=== PATIENT | male | born 1950 | race Caucasian/White ===

== ENCOUNTER 2017-01-31 22:18 | Inpatient (IN) | payer MEDICARE, BC, OTHER ==
[~2017-01-31] VITALS: Ht 172.7 cm; Wt 112.2 kg
[2017-01-31] MEDS ORDERED: ASPI81TA85 PO (22:35)
[2017-01-31] MEDS ORDERED: GLIP5TAB8 PO (22:35)
[2017-01-31] MEDS ORDERED: ATEN25TA PO (22:35)
[2017-01-31] MEDS ORDERED: ATOR1TAB19 PO (22:35)
[2017-01-31 23:41] LABS: BASO % 0.4 % (0.0-1.0); EOS % 0.5 % (0.0-3.0); LARGE UNSTAINED CELL # 0.1 K/mm3 (0.0-0.4); LARGE UNSTAINED CELL % 2.1 % (0.0-4.0); LYMPH # 1.1 K/mm3 (1.5-4.5); LYMPH % 15.9 % (24.0-44.0); MEAN CORPUSCULAR HEMOGLOBIN 28.5 pg (27.0-33.0); MEAN CORPUSCULAR HGB CONC 31.8 g/dl (32.0-36.5); MEAN CORPUSCULAR VOLUME 89.6 fl (80.0-96.0); MONO # 0.4 K/mm3 (0.0-0.8); MONO % 6.1 % (0.0-5.0); NEUTROPHILS # 4.7 K/mm3 (1.8-7.7); NEUTROPHILS % 75.2 % (36.0-66.0); PLATELET COUNT, AUTOMATED 186 k/mm3 (150-450); RED CELL DISTRIBUTION WIDTH 15.5 % (11.5-14.5); WHITE BLOOD COUNT 6.3 K/mm3 (4.0-10.0)
[2017-01-31 23:49] LABS: INR 1.42
[2017-02-01] VITALS (29 sets, daily range): BP systolic 85–111; BP diastolic 48–60
[2017-02-01 00:11] LABS: CALCIUM LEVEL 7.6 MG/DL (8.8-10.2); CREATININE FOR GFR 4.16 MG/DL (0.70-1.30); GLOMERULAR FILTRATION RATE 15.2 (>49); POTASSIUM SERUM 4.8 MEQ/L (3.5-5.1)
[2017-02-01] MEDS ORDERED: ATOR1TAB21 PO (00:58)
[2017-02-01] MEDS ORDERED: SILV-4 TOP (00:58)
[2017-02-01] MEDS ORDERED: FENO160T10 PO (00:58)
[2017-02-01] MEDS ORDERED: DIPH25CA PO (00:58)
[2017-02-01] MEDS ORDERED: ASPI81TAEC PO (00:58)
[2017-02-01] MEDS ORDERED: VITA50003 PO (00:58)
[2017-02-01] MEDS ORDERED: GLIM1TAB PO (00:58)
[2017-02-01] MEDS ORDERED: BACT800T5 PO (00:58)
[2017-02-01] MEDS ORDERED: RENV2TAB PO (00:58)
[2017-02-01] MEDS ORDERED: RENATAB5 PO (00:58)
[2017-02-01] MEDS ORDERED: LUTE40CA2 PO (00:58)
[2017-02-01] MEDS ORDERED: CINA30TA PO (00:58)
[2017-02-01] MEDS ORDERED: CALCIUM GLUCONATE 1,000 MG in D5W MINI-BAG PLUS 100 ML IV ONE (02:30)
[2017-02-01] MEDS ORDERED: diphenhydrAMINE 25 MG CAP PO PRN (02:30)
[2017-02-01] MEDS ORDERED: SILVER SULFADIAZINE 1% CR 50 GM JAR TOP PRN (02:30)
[2017-02-01] MEDS ORDERED: GLUCOSE 4 GM CHEW TABLET PO PRN (02:30)
[2017-02-01] MEDS ORDERED: GLUCAGON FOR INJ 1 MG VIAL (J1610) SC PRN (02:30)
[2017-02-01] MEDS ORDERED: ACETAMINOPHEN TAB 650MG DOSE (2X325MG) PO PRN (02:45)
[2017-02-01] MEDS ORDERED: ONDANSETRON 4MG/2ML VIAL (J2405) IV PRN (02:45)
[2017-02-01 05:48] LABS: MEAN CORPUSCULAR HEMOGLOBIN 28.6 pg (27.0-33.0); MEAN CORPUSCULAR HGB CONC 32.4 g/dl (32.0-36.5); MEAN CORPUSCULAR VOLUME 88.3 fl (80.0-96.0); RED CELL DISTRIBUTION WIDTH 15.6 % (11.5-14.5)
[2017-02-01 05:59] LABS: MAGNESIUM LEVEL 2.3 MG/DL (1.8-2.4)
--- NOTE | 2017-02-01 06:34 | HPE ---
DATE OF ADMISSION: 02/01/2017 PRIMARY CARE PROVIDER/TRESTLE BUILDER: Dr. Mayorga. CHIEF COMPLAINT: Lightheadedness and dizziness. HISTORY OF PRESENT ILLNESS: This is a 67-year-old male patient with underlying medical history of coronary arterial disease with coronary artery bypass graft (CABG), diabetes type 2, end-stage renal disease on hemodialysis Sunday, Sunday, Sunday, recently been treated with Bactrim for lower extremity cellulitis. The patient for the past day or so has been reported weak and lightheaded, subsequently went to dialysis today. Following dialysis, the patient reported lightheadedness getting worse. The patient was subsequently brought to the emergency room, found to be anemia. Fecal occult was done in the emergency room and was positive melanotic stool. Upon further questioning, the patient stated that at baseline, he makes about 1-2 bowel movements a day, but for the past week has been making melanotic stool up to four episodes a day for the past week or so. The patient was found to be hypotensive in the emergency room. Packed red blood cells (PRBC) transfusion ordered. Orthostatic not done given patient was hypotensive and mildly tachycardic. The patient denies any chest pain, pressure, discomfort. Denies any shortness of breath. Denies any headache. The patient has never had an esophagogastroduodenoscopy (EGD) or any past history of bleeding. Denies alcohol or drinking. ALLERGIES: No known drug allergies. PAST MEDICAL HISTORY: 1. Coronary arterial disease. 2. End-stage renal disease. 3. Type 2 diabetes. 4. Being treated for cellulitis. 5. History of transient ischemic attack (TIA) with left-sided paresthesia which has resolved. PAST SURGICAL HISTORY: 1. Appendectomy. 2. Coronary artery bypass graft (CABG). 3. Arteriovenous (AV) fistula. SOCIAL HISTORY: The patient lives at home with his . Baseline ambulatory. Denies history of alcohol use or smoking or illicit drug use. FAMILY HISTORY: Denies family history of cancer. HOME MEDICATIONS: - aspirin 81 mg by mouth daily - atenolol 25 mg by mouth Sunday, , Sunday, Sunday in the morning - Lipitor 20 mg by mouth at bedtime - Sensipar 30 mg by mouth every evening with dinner - Benadryl 25 mg by mouth at bedtime as needed - vitamin D 50,000 units on Sunday - fenofibrate 160 mg by mouth at bedtime - glimepiride 1 mg by mouth daily - lutein 40 mg by mouth daily - Adela-Liza one tablet by mouth daily - Renvela 1600 mg by mouth with meal - Silvadene silver sulfadiazine topical 1% - Bactrim 800/160 mg by mouth twice a day REVIEW OF SYSTEMS: The patient reported lightheadedness. Denies any chest pain, pressure, discomfort. Denies any shortness of breath. Reported melena. Denies any sick contact. All other review of systems was negative. PHYSICAL EXAMINATION: VITAL SIGNS: Temperature 98.8, pulse 102, respiratory rate 16, blood pressure ranging from 74/46 to 84/50. Pulse oximetry 97% on room air. GENERAL: Patient alert and oriented times three in no acute distress. Fatigued. Obese. HEENT: Normocephalic, atraumatic. PULMONARY: Bilaterally clear to auscultation. CARDIAC: Mild tachycardia. Regular S1, S2. ABDOMEN: Obese soft, nontender. Positive bowel sounds. EXTREMITIES: Right lower extremity healing cellulitis around the wright area with erythema that is resolving and fading. No significant edema bilateral lower extremities. NEUROLOGIC: No focal deficits. LABORATORY DATA: WBC 6.3, hemoglobin and hematocrit 6 over 18.9, platelets 186. Chemistry: Sodium 139, potassium 4.8, chloride 94, bicarbonate 29, BUN 39, creatinine 4.16. INR 1.42. ASSESSMENT AND PLAN: This is a 67-year-old male patient with underlying medical history of end-stage renal disease on hemodialysis Sunday, Sunday, Sunday, type 2 diabetes, non insulin dependent, history of coronary arterial disease, transient ischemic attack (TIA), admitted for acute blood loss anemia. 1. Acute blood loss anemia with fecal occult positive and hypotension. Given end-stage renal disease, avoid aggressive fluid resuscitation. We will actually transfuse the patient three units of packed red blood cells (PRBC). We will consult gastroenterology. Nothing by mouth. Protonix twice a day. Holding aspirin. Holding blood pressure medications. Serial hemoglobin and hematocrit. Transfuse as needed. 2. End-stage renal disease. Will consult nephrology for continuation of dialysis. Monitor for fluid overload. Strict intake and output. 3. Type 2 diabetes. Holding oral medication. Insulin every six hours according to protocol. Followup fingersticks. Nothing by mouth. 4. History of coronary arterial disease. EKG, cardiac enzymes. Holding aspirin and beta blockers for now, given patient is hypotensive with active gastrointestinal (GI) bleed. Continue statin. 5. History of transient ischemic attack (TIA). Continue statin. Holding aspirin given patient is having acute blood loss anemia. 6. Deep venous thrombosis (DVT) prophylaxis. Sequential compression devices. 7. Recently diagnosed cellulitis. Continue Bactrim. DISPOSITION: Pending GI followup, clinical improvement.
[2017-02-01] MEDS: HumaLOG INSULIN (NovoLOG) PER UNIT SC SCH ×4 (06:55→18:00)
[2017-02-01] MEDS ORDERED: (RENVELA) SEVELAMER **CARBONate** 800 MG TAB PO SCH (08:00)
[2017-02-01] MEDS ORDERED: BACTRIM 160MG/800MG DS TAB PO SCH (09:00)
[2017-02-01] MEDS: PANTOPRAZOLE 40MG INJ (PROTONIX) (C9113) IV SCH ×2 (09:12→20:18)
[2017-02-01 10:51] LABS: CALCIUM LEVEL 7.9 MG/DL (8.8-10.2); CREATININE FOR GFR 4.93 MG/DL (0.70-1.30); GLOMERULAR FILTRATION RATE 12.5 (>49); POTASSIUM SERUM 4.3 MEQ/L (3.5-5.1)
[2017-02-01] MEDS ORDERED: VANCOMYCIN HCL 1,000 MG, VIAL MATE ADAPTER 1 EACH in D5W 250 ML IV SCH (11:45)
[2017-02-01] MEDS: PIPERACILLIN/TAZOBACTAM SOD 2.25 GM in D5W MINI-BAG PLUS 50 ML IV SCH ×2 (12:15→20:19)
[2017-02-01] MEDS ORDERED: VANCOMYCIN HCL 1,000 MG, VIAL MATE ADAPTER 1 EACH in D5W 250 ML IV ONE (13:00)
[2017-02-01] MEDS ORDERED: VASOPRESSIN INJ 20 UNITS/ML VIAL As Ordered ONE (13:27)
--- NOTE | 2017-02-01 14:05 | ROOR ---
Patient Name: Kristopher Tyson Procedure Date: 02/01/2017 1:42 PM Date of : 1950 Age: 67 Gender: Male Note Status: Finalized Procedure: Upper GI endoscopy Indications: Acute post hemorrhagic anemia, Melena Providers: Joaquin GREEN MD Referring MD: Irina Mayorga MD Requesting Provider: Medicines: Monitored Anesthesia Care Complications: No immediate complications. Procedure: Pre-Anesthesia Assessment: - The heart rate, respiratory rate, oxygen saturations, blood pressure, adequacy of pulmonary ventilation, and response to care were monitored throughout the procedure. The Endoscope was introduced through the mouth, and advanced to the second part of duodenum. The upper GI endoscopy was accomplished without difficulty. The patient tolerated the procedure well. Findings: The examined esophagus was normal. The entire examined stomach was normal. One partially obstructing non-bleeding cratered duodenal ulcer with pigmented material was found in the duodenal bulb. The lesion was 10 mm in largest dimension. There is no evidence of perforation. This was biopsied with a cold forceps for histology. Impression: - One 10-15 mm deeply cratered non-bleeding duodenal ulcer with pigmented material. Biopsied along margin. - Normal esophagus. - Normal stomach. Recommendation: - Use Protonix (pantoprazole) 40 mg IV BID today. - Use Protonix (pantoprazole) 40 mg PO BID indefinitely. - Clear liquid diet. - Observe patient's clinical course. - [facility] to [facility] for [facility] care. Joaquin Green MD Joaquin GREEN MD 02/01/2017 2:04:50 PM This report has been signed electronically. Number of Addenda: 0 Note Initiated On: 02/01/2017 1:42 PM Estimated Blood Loss: Estimated blood loss: none.
[2017-02-01] MEDS ORDERED: PROPOFOL 200 MG/20 ML VIAL As Ordered ONE (14:17)
[2017-02-01] MEDS ORDERED: LIDOCAINE 2% INJ 100 MG/5 ML SDV (FOR ANES.) As Ordered ONE (14:17)
[2017-02-01] MEDS: CHECK TO SEE IF PATIENT IS RECEIVING DIALYSIS TODAY AND REFER TO THE VANCOMYCIN ORDER XX SCH (16:00)
[2017-02-01] MEDS ORDERED: VASOPRESSIN INJ 20 UNITS/ML VIAL ONE (16:59)
--- NOTE | 2017-02-01 16:59 | ECGEPIP ---
Stationary ECG Study [facility] Test Date: 2017-02-01 Pat Name: KALYANI WHITMORE Department: Room: [place] [address] Gender: M Paper Plate Machine Tender: CAROLANN : 1950 Requested By: YOBANY LAMBERT Order Number: [id number] Reading MD: Luis E Blackwell Measurements Intervals [place] Rate: 92 P: 8 AK: 163 QRS: 7 QRSD: 89 T: 53 QT: 370 QTc: 460 Interpretive Statements Normal sinus rhythm Consider prior inferior wall myocardial infarction Nonspecific repolarization abnormalities Faster heart rate compared to prior tracing of 01/28/2017 Electronically Signed On 02-01-2017 16:58:42 EDT by Luis E Blackwell
[2017-02-01] MEDS: CINACALCET 30 MG TAB (SENSIPAR) PO SCH (18:07)
[2017-02-01] MEDS: DEXTROSE 50% 50 ML SYRINGE IV PRN ×2 (18:07→23:37)
--- NOTE | 2017-02-01 19:31 | CR ---
DATE OF CONSULTATION: 02/01/2017 REQUESTING PHYSICIAN: Dr. Ginger Segovia CONSULTING PHYSICIAN: Dr. Gonzalez REASON FOR CONSULTATION: Management of end-stage renal disease and hemodialysis in this patient who was admitted to the intensive care unit (ICU) with acute blood loss anemia and possible gastrointestinal (GI) bleed. CHIEF COMPLAINT: The patient presented to the emergency room overnight with lightheadedness and dizziness. HISTORY OF THE PRESENT ILLNESS: Mr. Kristopher Tyson is a 67-year-old male with a past medical history of end-stage renal disease, on hemodialysis every Sunday, Sunday, Sunday. He is well known to nephrology service from outpatient dialysis center. The patient has multiple other comorbidities as mentioned below. The patient was recently started on Bactrim as an outpatient from the nephrology clinic because of right leg cellulitis, feeling weak and tired. Initially, his symptoms improved but after that, the patient started feeling more weak and tired and lightheaded, and he was also having loose stools, which were melenic and foul smelling. The patient was having about 2-3 episodes a day. He finally presented to the emergency room yesterday where he was found to have melenic stools, positive fecal occult. His hemoglobin on admission was 6. The patient was admitted to the ICU with symptomatic blood loss anemia with possible GI bleed. On further evaluation, the patient was also found to have a foul-smelling right 3rd toe diabetic foot infection. Nephrology service was called for further help in the management of end-stage renal disease and hemodialysis and any need to do hemodialysis in this patient who is getting blood transfusion for symptomatic anemic. The patient has received two units of packed red blood cell transfusion so far. He is asymptomatic at this time. He was sitting in the ICU with no apparent distress. PAST MEDICAL HISTORY: End-stage renal disease, on hemodialysis. Diabetes mellitus type 2. Recently started on antibiotics for right leg cellulitis. History of transient ischemic attacks (TIAs). Coronary artery disease, status post coronary artery bypass graft (CABG). PAST SURGICAL HISTORY: Status post coronary artery bypass grafting. Status post appendectomy. History of right forearm arteriovenous (AV) fistula placement. ALLERGIES: No known drug allergies. FAMILY HISTORY: No significant family history of end-stage renal disease requiring hemodialysis. SOCIAL HISTORY: The patient denies any smoking, illicit drug abuse or alcohol abuse. He lives at home with his . REVIEW OF SYSTEMS: CONSTITUTIONAL: The patient reported feeling weak, tired and lightheaded on presentation. HEENT: The patient reports very decreased vision of the eyes. He was unable to see the wound in his right foot. He denies any blurry vision, double vision or ear discharge. CARDIOVASCULAR: He denies any chest pain or palpitations. RESPIRATORY: He denies any shortness of breath or cough. GASTROINTESTINAL: The patient reports melenic stools, about 2-3 times a day. GENITOURINARY: He denies any dysuria or hematuria. MUSCULOSKELETAL: The patient is being recently treated for right leg cellulitis. Otherwise he denies any muscle aches and pains. CENTRAL NERVOUS SYSTEM: He reports a history of TIAs in the past. PSYCHIATRIC: He denies any history of depression or anxiety. ENDOCRINE: The patient has a history of secondary hyperparathyroidism and diabetes mellitus type 2. All other review of systems is negative. PHYSICAL EXAMINATION: GENERAL: The patient is awake, alert, oriented times three, laying in bed, in no apparent distress at this time. VITAL SIGNS: Temperature is 98.9 degrees Fahrenheit. Blood pressure is 95/57, pulse is 76, respiratory rate of 16, saturating 95% on room air. INTAKE/OUTPUT: There is no urine output recorded. The patient is 1530 mL positive with all the blood products given to him so far along with the IV fluids. HEAD AND NECK EXAM: Extraocular muscles intact. Pupils equally round and reactive to light. Mucous membranes are moist. Positive pallor in conjunctivae. Neck is supple. There is no jugular venous distention (JVD). CARDIOVASCULAR: S1, S2, regular rate. No murmur, rub or gallop. RESPIRATORY: Chest is clear to auscultation bilaterally. Bilateral equal air entry. No rales or rhonchi. ABDOMEN: Soft. Positive bowel sounds. Nontender. No ascites. No organomegaly. EXTREMITIES: The patient has a right forearm AV fistula with positive thrill and bruit and the patient has a foul-smelling right 3rd toe infection. CENTRAL NERVOUS SYSTEM: No focal neurological deficit. Power is 5/5 in all extremities. PSYCHIATRIC: Normal mood and affect. LYMPH NODES: No cervical, axillary or inguinal lymphadenopathy. LAB REVIEW: CBC showed a WBC of 7, hemoglobin is 7.9. It was 6 on admission. Platelets are 207. BMP showed sodium 137, potassium 4.3, chloride 95, bicarbonate is 33, BUN 57, creatinine is 4.93, lactate is 1.6, calcium is 7.9. CURRENT INPATIENT MEDICATIONS: The patient's medications were all reviewed by me. He was given calcium gluconate 1 gram IV. He is on Zosyn 2.25 grams IV every 8 hours, started today. Vancomycin 1 gram IV given today. Tylenol as needed. Lipitor 20 mg nightly. Sensipar 30 mg daily. Benadryl as needed. Insulin sliding scale. Zofran as needed. Protonix 40 mg IV every 12 hours. Renvela is on hold because the patient is nothing by mouth for procedure and his Bactrim has been stopped because the patient has been started on broad-spectrum vancomycin and Zosyn. ASSESSMENT: A 67-year-old male with a past medical history of end-stage renal disease, on hemodialysis, history of coronary artery disease, diabetes mellitus type 2, admitted at this time because of symptomatic acute blood loss anemia, possible upper GI bleed, along with a right-sided diabetic foot infection. PLAN: 1. Acute blood loss symptomatic anemia. The patient has been given two units of packed red blood cell transfusion so far. Hemoglobin is improving. If needed, the patient can be given another unit of packed red blood cells. The patient is hemodynamically stable at this time. There is no urgent need to do hemodialysis at this time. He is clinically not overloaded, and he does not have any shortness of breath. 2. Possible upper GI bleed. The patient has positive fecal occult blood test. He is nothing by mouth. The patient is going to get endoscopy by GI today. 3. End-stage renal disease, on hemodialysis. The patient's regular dialysis days are Sunday, Sunday, Sunday. No need of hemodialysis at this time. The patient will be dialyzed according to his regular schedule tomorrow. 4. Right 3rd toe diabetic foot infection. The patient is going to get MRI of the right foot once acute events are over. I have empirically started the patient on vancomycin and Zosyn. He is going to be evaluated by lead manufacturing engineer as well. 5. Diabetes mellitus type 2. Continue to hold the oral medications at this time. Continue insulin sliding scale as per primary team. 6. History of coronary artery disease. Continue to hold aspirin at this time because of the GI bleed. Hold fenofibrate. 7. Secondary hyperparathyroidism of renal origin. Continue current dose of Sensipar 30 mg by mouth daily once the patient starts eating. 8. Right leg cellulitis. The patient was empirically started on Bactrim as an outpatient. Cellulitis is improving. He is currently on empiric broad-spectrum antibiotic. Bactrim has been held at this time. Thank you for involving us in the care of this patient. We shall be happy to follow the patient along with you tomorrow morning.
[2017-02-01] MEDS: ATORVASTATIN 20 MG TAB PO SCH (20:19)
--- NOTE | 2017-02-01 22:01 | CR ---
DATE OF CONSULTATION: 02/01/2017 REASON FOR CONSULTATION: Right foot toe ulceration and gangrene. HISTORY OF PRESENT ILLNESS: The patient is a 67-year-old male who was admitted on 02/01/2017 due to dizziness. He is a kidney and dialysis patient, receives dialysis Sunday, Sunday and Fridays. He has previously seen Dr. King for his foot care in the past but states he did not see him since last winter. He states he did have an upcoming appointment to receive diabetic shoes. The patient has poor feeling in his feet, was unaware that there was any wound or problem to his toe. PAST MEDICAL HISTORY: Significant for: 1. Coronary artery disease. 2. End-stage renal disease on dialysis. 3. Diabetes. 4. History of transient ischemic attack (TIA). PAST SURGICAL HISTORY: Significant for: 1. Appendectomy. 2. Coronary artery bypass grafts. 3. Arteriovenous (AV) fistula. SOCIAL HISTORY: The patient denies smoking or alcohol. HOME MEDICATIONS: Aspirin, atenolol, Lipitor, Sensipar, Benadryl, vitamin D, fenofibrate, glimepiride, lutein, Adela-Liza, Renvela, and recent Bactrim for the toe infection. The patient denies pain in feet. VITAL SIGNS: Current temperature is 98.9, maximum temperature (T-max) is 99.1, vitals stable. LABORATORY DATA: White blood cell count 7, hemoglobin is 7.4, did receive packed red blood cells, it was 6 on admission, ESR is 126. MICROBIOLOGY: Wound cultures are pending. LOWER EXTREMITY EXAMINATION: Pulses are palpable bilaterally. There is absence of protective sensation bilaterally. There are no wounds noted to the left foot. The right foot, there is an ulceration noted to the lateral fifth metatarsal, approximately 0.4 cm in diameter, granular base, no signs of infection. The right third toe is ischemic in appearance with wounds both medial and lateral to the toe with necrotic tissue and positive probe to bone. ASSESSMENT: This is a 67-year-old male with diabetes, peripheral neuropathy, and diabetic ulceration, stage IV. PLAN: Continue current antibiotics, await culture results, an MRI has been ordered to evaluate extensive osteomyelitis. We will plan on amputation of the third toe within the next few days once the patient is stable and to use MagSorb on the wounds presently until further notice.
[2017-02-02] VITALS (13 sets, daily range): BP systolic 81–124; BP diastolic 45–67
[2017-02-02] MEDS: PIPERACILLIN/TAZOBACTAM SOD 2.25 GM in D5W MINI-BAG PLUS 50 ML IV SCH ×3 (02:25→21:57)
[2017-02-02] MEDS: HumaLOG INSULIN (NovoLOG) PER UNIT SC SCH ×4 (06:00→23:45)
[2017-02-02] MEDS: DEXTROSE 50% 50 ML SYRINGE IV PRN (06:02)
[2017-02-02 06:43] LABS: ALBUMIN 2.1 GM/DL (3.2-5.2); CALCIUM LEVEL 7.8 MG/DL (8.8-10.2); CREATININE FOR GFR 6.4 MG/DL (0.70-1.30); GLOMERULAR FILTRATION RATE 9.3 (>49); MAGNESIUM LEVEL 2.3 MG/DL (1.8-2.4); PHOSPHORUS LEVEL 4.5 MG/DL (2.5-4.9); POTASSIUM SERUM 3.6 MEQ/L (3.5-5.1)
[2017-02-02 07:05] LABS: MEAN CORPUSCULAR HGB CONC 33.6 g/dl (32.0-36.5); MEAN CORPUSCULAR VOLUME 86.4 fl (80.0-96.0); RED CELL DISTRIBUTION WIDTH 15.7 % (11.5-14.5); WHITE BLOOD COUNT 7.2 K/mm3 (4.0-10.0)
[2017-02-02] MEDS: PANTOPRAZOLE 40MG INJ (PROTONIX) (C9113) IV SCH ×2 (09:55→21:57)
--- NOTE | 2017-02-02 10:01 | REP ---
MRI RIGHT FOOT: Study is limited due to extensive patient motion. Multiple sequences are obtained in the axial, coronal, and sagittal planes. There does appear to be abnormal signal involving the third proximal, middle, and distal phalanges with diffuse low signal on T1 and high signal on T2. Findings suggest osteomyelitis of those structures. No other definite abnormal marrow signal is seen in the visualized osseous structures of the right foot. There is diffuse ill-defined edema throughout the soft tissues of the right foot. In addition, there is moderate fluid and edema along the flexor tendons of the foot primarily centered in the region of the midfoot. There is likely underlying cellulitis, but extent of the cellulitis cannot be determined without IV contrast. IMPRESSION: Limited exam due to patient motion. There are findings compatible with osteomyelitis of the third proximal, middle, and distal phalanges. There are findings of associated cellulitis. Moderate edema and fluid is seen along the flexor tendons of the midfoot. Signed by Vamshi Ledesma MD 02/02/2017 05:17 P
--- NOTE | 2017-02-02 10:51 | IPN ---
DATE: 02/02/2017 SUBJECTIVE: Today, the patient tells me that he had one runny bowel movement early yesterday evening but since then, he has not had any further episodes overnight. He denies chest pain, shortness of breath, lightheadedness, or dizziness, even when standing. He denies any other issues or problems at this time. OBJECTIVE: VITAL SIGNS: Temperature 97.8, pulse 69, respiratory rate 15, blood pressure 98/57 which appears to be his chronic baseline, oxygen saturation 98% on room air. GENERAL: He is an obese, elderly, man sitting in a wheelchair. He does not appear to be in any acute distress. NEUROLOGIC: Cranial nerves II-XII are grossly intact. HEENT: He does not appear pale today. No elevation in central venous pressure (CVP). CARDIOVASCULAR: S1, S2. RESPIRATORY: Clear. ABDOMEN: Grossly obese. There is epigastric tenderness to palpation. EXTREMITIES: He has a right thigh/gluteal region of induration and erythema, a right third toe erythema with ulcer which is malodorous. LABORATORY STUDIES: WBC 7.2, hemoglobin 8.6, hematocrit 25.7, platelet count 181. Chemistry panel: Sodium 134, potassium 3.6, chloride 94, bicarbonate 31, BUN 67, creatinine 6.4, troponin was 0.13 at the time of admission, repeat was 0.48. Blood cultures are negative thus far. Wound culture is pending. The patient did have an MRI of his foot which revealed findings compatible with osteomyelitis in the third proximal middle and distal phalanges. The patient had endoscopy yesterday which revealed one 10-15 mm deeply cratered, non-bleeding duodenal ulcer with pigmented material biopsied along the margin. ASSESSMENT AND PLAN: This is a 67-year-old man with gastrointestinal (GI) bleed secondary to a duodenal ulcer. 1. GI bleed and acute blood loss anemia secondary to duodenal ulcer. Dr. Green's help has been appreciated. The patient is on IV Protonix twice a day. He has been tolerating a clear liquid diet. He has received a total of four units of packed red blood cells (PRBCs). Hemoglobin is above 8. For the time being, we will keep him in the medical intensive care unit and monitor him to ensure that hemoglobin and hematocrit remain stable for 24 hours with no further active bleeding. He is to remain on a proton pump inhibitor (PPI) indefinitely. He will followup his biopsy results with Dr. Green outpatient. 2. Osteomyelitis of the right third toe. I did speak with Dr. Moscoso of podiatry. The patient normally follows with Dr. King who is unavailable to see the patient in consultation at this time. Dr. Moscoso agrees that this will likely require amputation. We are tentatively scheduling this for Sunday, provided that the patient remains hemodynamically stable and his GI bleed continues to resolve nicely. The patient is on empiric vancomycin and Zosyn. We will followup his cultures and narrow as appropriate. 3. Right gluteal/right thigh abscess. There is an area of fluctuance concerning for a possible abscess. I have asked Dr. Dumont of general surgery to see the patient. 4. End-stage renal disease. Dr. Gonzalez's help has been greatly appreciated. The patient is on Sensipar. 5. Type 2 diabetes. The patient is on sliding scale insulin and hypoglycemic protocol. He is on a renal, consistent-carbohydrate diet. 6. Dyslipidemia. The patient is on Lipitor. 7. Hypertension. The patient is actually hypotensive. He reports to me that he is quite chronically hypotensive. He normally takes atenolol four days a week on non-dialysis days. At this time, he does not appear to be requiring this whatsoever and as such, it has been discontinued. The patient's aspirin has been on hold secondary to bleeding. DISPOSITION: The patient will remain in the medical intensive care unit for an additional 24 hours. Provided he remains stable, he could likely be downgraded in the near future.
[2017-02-02] MEDS ORDERED: LIDOCAINE W/EPINEPHRINE 1% 20ML VIAL As Ordered ONE (15:06)
[2017-02-02] MEDS ORDERED: LIDOCAINE W/EPINEPHRINE 1% 20ML VIAL SC ONE (15:10)
[2017-02-02] MEDS: CHECK TO SEE IF PATIENT IS RECEIVING DIALYSIS TODAY AND REFER TO THE VANCOMYCIN ORDER XX SCH (16:00)
--- NOTE | 2017-02-02 16:33 | IPN ---
PODIATRY PROGRESS NOTE: DATE: 02/02/2017 The patient seen and examined at bedside. Denies overnight complaints. Denies any pain in his toe. VITAL SIGNS: He has been afebrile over last 24 hours. LABS: Labs reviewed. Hemoglobin is 8.6, white blood cell count is 7.2. Cultured reviewed. No growth 24 hours. Blood cultures, wound cultures pending. MRI report reviewed. There is osteomyelitis present in the third toe in the distal, middle and proximal phalange. None is noted to the metatarsal head. LOWER EXTREMITY EXAMINATION: Necrotic tissue again noted to the third toe. No worsening or spreading of the erythema proximal to this. ASSESSMENT: 67-year-old diabetic male with end-stage renal disease, on dialysis with third toe osteomyelitis. PLAN: Will take to operating room on Sunday afternoon for third toe amputation. Consent was obtained. Discussed this with patient and his who are amenable. Discussed with Dr. Gonzalez who states he will be able to have his dialysis in the morning on that Sunday. The patient will be nothing by mouth (npo) that morning. Will follow.
[2017-02-02] MEDS: CINACALCET 30 MG TAB (SENSIPAR) PO SCH (18:35)
[2017-02-02] MEDS ORDERED: VANCOMYCIN HCL 1,000 MG, VIAL MATE ADAPTER 1 EACH in D5W 250 ML IV ONE (21:45)
[2017-02-02] MEDS: ATORVASTATIN 20 MG TAB PO SCH (21:57)
[2017-02-03] VITALS: BP 107/69
[2017-02-03] MEDS: PIPERACILLIN/TAZOBACTAM SOD 2.25 GM in D5W MINI-BAG PLUS 50 ML IV SCH ×3 (03:20→21:11)
[2017-02-03 04:00] VITALS: BP 98/56
[2017-02-03 04:51] LABS: MEAN CORPUSCULAR HEMOGLOBIN 29.3 pg (27.0-33.0); MEAN CORPUSCULAR VOLUME 88.9 fl (80.0-96.0); RED CELL DISTRIBUTION WIDTH 16.4 % (11.5-14.5); WHITE BLOOD COUNT 6.2 K/mm3 (4.0-10.0)
[2017-02-03 05:07] LABS: ALBUMIN 2.1 GM/DL (3.2-5.2); CALCIUM LEVEL 7.8 MG/DL (8.8-10.2); CREATININE FOR GFR 4.59 MG/DL (0.70-1.30); GLOMERULAR FILTRATION RATE 13.6 (>49); MAGNESIUM LEVEL 2.2 MG/DL (1.8-2.4); PHOSPHORUS LEVEL 3.6 MG/DL (2.5-4.9)
[2017-02-03] MEDS ORDERED: GLUCOSE 4 GM CHEW TABLET As Ordered ONE (05:28)
[2017-02-03] MEDS: HumaLOG INSULIN (NovoLOG) PER UNIT SC SCH ×6 (06:00→20:18)
--- NOTE | 2017-02-03 08:13 | IPN ---
DATE: 02/02/2017 SUBJECTIVE: Patient was seen and examined at the bedside in the morning in the intensive care unit (ICU) today. He was sitting on the sofa. Last 24 hour events were noted. Patient got EGD done. He was found to have a non-bleeding duodenal ulcer on the EGD. GI recommended continuing the twice a day Protonix. We appreciate GI recommendations. Patient has soft blood pressure but he is asymptomatic at this time. He reports that his blood pressure is usually in 80s to low 90s. REVIEW OF SYSTEMS: Patient denies any fever, chills, rigors, headache, nausea, vomiting, chest pain, shortness of breath, pain in abdomen, constipation or diarrhea. Patient does report that he has boils and abscesses in the right gluteal region with blood drainage. Rest of review of systems is negative. OBJECTIVE: Vital signs: Temperature is 98.5 degrees Fahrenheit, blood pressure is 124/67, pulse 81, respiratory rate of 18, saturating 98% on room air. Intake and output: Urine output recorded as 100 mL so far today. Weight on the bed scale is 110 kg. PHYSICAL EXAMINATION: General: Patient is awake, alert, oriented times three sitting on the sofa in no apparent distress. Head and neck exam: Extraocular muscles intact. Pupils equally round and reactive to light. Mucous membranes are moist. Neck is supple. There is no jugular venous distention (JVD). Cardiovascular: S1, S2. Regular rate. No murmur, rub or gallop. Respiratory: Chest is clear to auscultation bilaterally. Bilateral equal air entry. No rales or rhonchi. Abdomen: Soft, positive bowel sounds, nontender, no ascites, no organomegaly. Extremities: Patient has a right forearm AV fistula with positive three line bruit. Patient has an infection in the right third toe and he also has boils, one in the right thigh lateral aspect which is almost 6 cm in length. It is draining blood at this time and there is another small hematoma, boil in the right gluteal region. Patient reports that he usually goes to urgent care, gets them drained and packed with dressings. Central nervous system: No focal neurological deficit. Power is 5/5 in all extremities. Psych: Normal mood and affect. LAB REVIEW: CBC showed WBC of 7.2, hemoglobin is 8.6, platelets of 181. BMP showed sodium 134, potassium 3.6, chloride 94, bicarbonate 31, BUN 67, creatinine 6.4. Lactic acid is 1.3, calcium 7.8. Albumin 2.1. Troponin 0.78. Microbiology: Blood culture is negative so far. Wound culture is pending. Imaging: MRI of the foot was done this morning. It was compatible with osteomyelitis of the third proximal middle and distal phalanx with associated cellulitis. Current inpatient medications: Patient's medications are all reviewed by me. He is currently on: - IV Zosyn - IV vancomycin There is no other change in the medications today as compared to yesterday. ASSESSMENT: 67-year-old male with past medical history of end stage renal disease on hemodialysis, history of coronary artery disease, diabetes mellitus type 2, admitted this time because of symptomatic anemia secondary to upper GI bleed along with right sided diabetic foot infection. PLAN: 1. Acute upper gastrointestinal (GI) bleed. Patient got EGD done yesterday. There was non-bleeding duodenal ulcer. Continue Protonix at this time. Continue to monitor CBC. Transfuse packed red blood cells for hemoglobin drop below 8. I appreciate GI recommendations. 2. End stage renal disease on hemodialysis. Today is patient's regular dialysis day according to Sunday, Sunday, Sunday. He will be dialyzed according to his regimen today. 3. Right third toe diabetic foot infection and osteomyelitis. I discussed the case with Dr. Moscoso. He plans to do the amputation of the third toe on Sunday after his dialysis session. Continue vancomycin and Zosyn. Cultures are pending. 4. Diabetes mellitus type 2. Continue insulin sliding scale. Blood glucose levels are in acceptable limit. 5. Coronary artery disease and elevated troponin is most likely secondary to stress and acute GI bleed. Aspirin is on hold. Hold fenofibrate at this time. 6. Right thigh and right gluteal region abscesses. Patient reports that he has visited the urgent care center multiple times. They are usually incised, drained and packed with dressings. I would like the surgical service to look at this abscesses because he is draining a lot of blood from them. I discussed this with the hospitalist Dr. Segovia and he is going to call the surgical service to evaluate the patient's abscesses. The plan of care was discussed with the patient, his with the hospitalist Dr. Segovia and with podiatry, Dimas Moscoso. Total critical care time spent in the care of this patient in intensive care unit (ICU) was 30 minutes.
[2017-02-03 10:00] VITALS: BP_SYST 102; BP_SYST 103; BP_SYST 105; BP_SYST 107; BP_DIAS 56; BP_DIAS 61; BP_DIAS 62
--- NOTE | 2017-02-03 10:14 | ROOPDOC ---
[facility] Report Of Operation Report of Operation DATE OF PROCEDURE: 02/02/17 PREPROCEDURE DIAGNOSES: Hematoma versus abscess right gluteal area and right hip POSTPROCEDURE DIAGNOSES: Hematoma right gluteal area and right hip PROCEDURE: Incision and drainage of hematoma right gluteal area and right hip SURGEON: Kanu Dumont MD KITCHEN MANAGER: ANESTHESIA: Local anesthesia with 1% lidocaine with epinephrine ESTIMATED BLOOD LOSS: Approximately 10 mL. COMPLICATIONS: None REMARKS: . PROCEDURE NOTE: . Patient with a mildly tender area, discolored and slight fluctuance over the right gluteal area and right hip area that on pressure is draining some old blood. He is tender but there is no significant erythema or cellulitis. Patient remains at the bedside. Consent was obtained. He was placed on a prone position. The areas of concern was prepped with chlorhexidine and draped. I initially attempted aspiration with an 18-gauge needle but did not get much return. After infiltrating with local anesthesia at the center point of the fluctuance 3 separate incisions of about 1.5-2 cm were created with drainage of initially liquid old blood and with pressure around it with solidified hematoma with resolution of the fluctuance. Gauze dressings and placed to cover the incision sites. Patient tolerated procedure well. KANU DUMONT MD Feb 03, 2017 10:14
--- NOTE | 2017-02-03 12:27 | IPN ---
DATE OF EXAMINATION: 02/03/2017 SUBJECTIVE: Today, the patient tells me that he is feeling great. He has no complaints. He tells me that he is having normal bowel movements. He does not have any further dark tarry stools. There is no blood in his bowel movements. He denies chest pain, shortness of breath, lightheadedness, dizziness, nausea, vomiting, or diarrhea. OBJECTIVE: VITAL SIGNS: Temperature 97.6, pulse 86, respiratory rate 19, blood pressure (BP) 98/56, oxygen (O2) saturation 96% on room air. GENERAL: He is a very pleasant obese man sitting up on the edge of the bed. He is accompanied by his . The patient does not appear to be in any acute distress whatsoever. HEENT: Cranial nerves II-XII are grossly intact. He has moist mucous membranes. No elevation in central venous pressure (CVP). CARDIOVASCULAR EXAMINATION: S1, S2. RESPIRATORY EXAMINATION: Is completely clear. ABDOMEN: Is grossly obese. There is mild tenderness to palpation over the epigastric region. EXTREMITIES: No clubbing or cyanosis. He has two foam bandages over his right thigh in gluteal region. He has dressings of his right 3rd toe. LABORATORY STUDIES: WBC 6.2, hemoglobin 9.1 stable, hematocrit 27.7, platelet count 194. Chemistry panel: Sodium 136, potassium 5.0, chloride 100, bicarbonate 29, BUN 35, creatinine 4.5. MICROBIOLOGY: A wound culture is positive for Morganella morgani, two different species, as well as Staphylococcus aureus. All appear sensitive to Bactrim. MRI of the foot reveals findings compatible with osteomyelitis in the 3rd proximal middle and distal phalanges. ASSESSMENT AND PLAN: This is a 67-year-old man with gastrointestinal (GI) bleed secondary to a duodenal ulcer. 1. Gastrointestinal (GI) bleed and acute blood loss anemia secondary to duodenal ulcer. Dr. Green's help has been appreciated. He is on Protonix twice a day 40. His GI bleed appears to be stable and resolving. At this time, his hemoglobin remains stable. Continue to monitor with daily hemoglobins and hematocrits. He will have to followup his biopsy results with Dr. Green in the outpatient setting. 2. Osteomyelitis of the right 3rd toe. Dr. Moscoso is planning to take the patient to the operating room (OR) on Sunday for amputation. The patient is aware of this. He will nothing by mouth after midnight on Sunday. He will have dialysis prior to the procedure on Sunday. The patient is hemodynamically stable. He remains on empiric vancomycin and Zosyn. We will followup the cultures from his amputation and narrow antibiotics and Bactrim as appropriate. However, I suspect Bactrim will likely be sufficient. 3. Right gluteal/thigh abscess versus hematoma. Dr. Dumont's help is greatly appreciated. The patient is status post incision and drainage (I and D) with dressing coverage at the present time. He reported has these chronically and presents to urgent care for frequent drainages. I suspect he would be better served by regular followup with Dr. Dumont. 4. End-stage renal disease, on hemodialysis. Dr. Gonzalez's help is greatly appreciated. The patient is on Sensipar. His regular schedule is Sunday, Sunday, and Sunday. 5. Type 2 diabetes. The patient is on sliding scale and hypoglycemic protocol. He is on a [id number] diet. 6. Dyslipidemia. The patient is on Lipitor. 7. Hypertension. The patient is chronically hypotensive. He normally takes atenolol four days a week on nondialysis days. He does not appear to be requiring this at this time and, as such, it has been discontinued. The patient's aspirin is also currently on hold related to bleeding from duodenal ulcer. DISPOSITION: The patient is medically cleared for transfer to the medical-surgical floor.
[2017-02-03] MEDS: PANTOPRAZOLE 40MG INJ (PROTONIX) (C9113) IV SCH ×2 (13:56→21:09)
[2017-02-03 14:00] VITALS: BP 104/52
[2017-02-03] MEDS: CHECK TO SEE IF PATIENT IS RECEIVING DIALYSIS TODAY AND REFER TO THE VANCOMYCIN ORDER XX SCH (16:00)
--- NOTE | 2017-02-03 17:01 | IPN ---
DATE:02/03/2017 SUBJECTIVE: Mr. Tyson is seen this morning on his bedside in intensive care unit. He is feeling well and denies any dyspnea or chest pain. He underwent hemodialysis yesterday which he tolerated very well. He also had incision and drainage done of fluid collection on his right buttock. The patient denies any abdominal pain, black colored stools or rectal bleeding. His appetite is good and he denies any nausea or vomiting. PHYSICAL EXAMINATION: VITAL SIGNS: Temperature 97.9 degrees Fahrenheit, heart rate 78 per minute and respiratory rate 18 per minute. Blood pressure 102/56 mmHg and oxygen saturation 98% on room air. HEENT: Head is atraumatic. Ears, nose and throat are unremarkable. Neck is supple and without jugular venous distention (JVD) or thyroid enlargement. Pupils equal and reactive to light and sclerae are anicteric. CARDIAC/RESPIRATORY: Heart sounds are regular and lungs clear to auscultation bilaterally. ABDOMEN: Soft and nontender. Bowel sounds are normal and there is no palpable organomegaly. EXTREMITIES: Have no cyanosis or clubbing. Arteriovenous (AV) fistula is patent in his left arm. His right foot is covered in dressing. Cellulitis on the right leg has improved. LABORATORY DATA: Today's labs show WBC count 6.2, hemoglobin 9.1 and hematocrit 27.7. Sodium 136 and potassium 5.0. BUN 35 and creatinine 4.59. Calcium 7.8, phosphorus 3.6 and magnesium 2.2. Albumin is 2.1. PROBLEMS: 1. Gastrointestinal (GI) bleed with severe anemia. Anemia has improved following transfusion. The patient has received a total of four units of packed red blood cells (RBCs). At present his hematocrit has been stable and no intervention is indicated. 2. End-stage renal disease. The patient underwent hemodialysis yesterday and his volume status is well compensated. His potassium level is borderline but at this point does not need any intervention. 3. Hyponatremia. His sodium level was slightly low yesterday which improved after dialysis. No intervention is indicated. 4. Gangrenous toe on right foot with cellulitis. The patient remains on antibiotics including Zosyn and vancomycin. He is afebrile and white blood cell count is normal. The patient is scheduled for amputation of his toe on Sunday. 5. Diabetes. His diabetes has been very well controlled. We will continue to monitor closely. 6. Protein calorie malnutrition related to GI bleed and ongoing infections. We will add Nepro one can daily. The patient is eating well. DISPOSITION: The patient is being transferred to medical floor. At this point he is hemodynamically stable.
[2017-02-03] MEDS: CINACALCET 30 MG TAB (SENSIPAR) PO SCH (18:15)
[2017-02-03] MEDS: ATORVASTATIN 20 MG TAB PO SCH (21:09)
[2017-02-03 22:00] VITALS: BP 108/59
[2017-02-04] MEDS: PIPERACILLIN/TAZOBACTAM SOD 2.25 GM in D5W MINI-BAG PLUS 50 ML IV SCH ×3 (03:41→20:17)
[2017-02-04 06:00] VITALS: BP 103/56
[2017-02-04 06:01] LABS: MEAN CORPUSCULAR HEMOGLOBIN 29.8 pg (27.0-33.0); MEAN CORPUSCULAR VOLUME 93.2 fl (80.0-96.0); RED CELL DISTRIBUTION WIDTH 17.1 % (11.5-14.5)
[2017-02-04 06:30] LABS: CALCIUM LEVEL 7.4 MG/DL (8.8-10.2); CREATININE FOR GFR 6.58 MG/DL (0.70-1.30); MAGNESIUM LEVEL 2.1 MG/DL (1.8-2.4); POTASSIUM SERUM 4.3 MEQ/L (3.5-5.1)
[2017-02-04] MEDS: HumaLOG INSULIN (NovoLOG) PER UNIT SC SCH ×4 (07:30→21:00)
[2017-02-04] MEDS: PANTOPRAZOLE 40MG INJ (PROTONIX) (C9113) IV SCH ×2 (09:46→20:18)
[2017-02-04 14:00] VITALS: BP_SYST 120; BP_SYST 129; BP_SYST 132; BP_DIAS 68; BP_DIAS 72
--- NOTE | 2017-02-04 15:09 | IPN ---
DATE: 02/04/2017 SUBJECTIVE: The patient reports he is feeling great. He has no complaints whatsoever. OBJECTIVE: VITAL SIGNS: Temperature 97.5, pulse 73, respiratory rate 19, blood pressure 103/56, oxygen saturation 97% on room air. GENERAL: He is a very pleasant, obese, man sitting up in bed. He is accompanied by his . He is in no distress. HEENT: Cranial nerves II-XII are grossly intact. CARDIOVASCULAR EXAM: S1, S2, regular. RESPIRATORY EXAM: Clear. ABDOMINAL EXAM: Obese. No tenderness to palpation. EXTREMITIES: No clubbing, cyanosis or edema. Bandages are clean, dry and intact. LABORATORY STUDIES: WBC 6.0, hemoglobin 8.6, hematocrit 26.9, stable, platelet count 173. Chemistry panel: Sodium 135, potassium 4.3, chloride 101, bicarbonate 25, BUN 53, creatinine 6.5. No new imaging. ASSESSMENT AND PLAN: This is a 67-year-old man who has a gastrointestinal (GI) bleed secondary to duodenal ulcer. Problems: 1. Gastrointestinal bleed and acute blood loss anemia secondary to duodenal ulcer. Dr. Green's help is appreciated. He is continued on Protonix twice a day. Hemoglobin and hematocrit is stable. Continue to monitor him. He will have to followup with biopsy results outpatient with Dr. Green. 2. Equivocal troponin. The patient may have some coronary artery disease and should undergo outpatient stress testing with a referral to cardiology. 3. Osteomyelitis of the right 3rd toe. I spoke with Dr. Moscoso. The patient will go for dialysis on Sunday and then from there to the operating room for amputation. He remains on empiric vancomycin and Zosyn. We will followup the cultures from his amputation and narrow antibiotics as appropriate. I suspect Bactrim will likely be sufficient. 4. Right gluteal/thigh abscess versus hematoma. Dr. Dumont's help is greatly appreciated. Status post incision and drainage. He has these recurrently and usually presents to urgent care. I suspect he would do better with regular followup with Dr. Dumont in surgical clinic. 5. End-stage renal disease, on hemodialysis. Nephrology's help is greatly appreciated. The patient is on Sensipar. His regular schedule is Sunday, Sunday, Sunday. He is euvolemic. 6. Type 2 diabetes. He is on sliding scale and hypoglycemic protocol. He is on renal, consistent carbohydrate diet. 7. Dyslipidemia. He is on Lipitor. 8. Hypertension. Chronically hypotensive. He normally takes atenolol; however, he does not appear to be requiring this at this time.
[2017-02-04] MEDS: CHECK TO SEE IF PATIENT IS RECEIVING DIALYSIS TODAY AND REFER TO THE VANCOMYCIN ORDER XX SCH (15:41)
[2017-02-04] MEDS ORDERED: DARBEPOETIN 100 MCG/0.5 ML *DIALYSIS* SYRINGE (J0882) IV SCH (16:30)
[2017-02-04] MEDS: CINACALCET 30 MG TAB (SENSIPAR) PO SCH (17:48)
--- NOTE | 2017-02-04 18:56 | IPN ---
DATE: 02/04/2017 SUBJECTIVE: Mr. Tyson is seen this morning on his bedside. He is feeling well and denies any complaints. He has no nausea, vomiting, dyspnea, chest pain, fever or chills. He was initially admitted with severe anemia, gastrointestinal (GI) bleed, and infected toe on his right foot with cellulitis. He remains on antibiotics. GI bleed has been stable since transfusion. The patient did have hemodialysis on Sunday which he tolerated very well. He is scheduled for his toe surgery on Sunday. PHYSICAL EXAMINATION: VITAL SIGNS: Temperature 97.5 degrees Fahrenheit, heart rate 72 per minute and respiratory rate 18 per minute. Blood pressure 103/56 mmHg and oxygen saturation 97% on room air. HEAD/NECK: His head is atraumatic. Neck is supple and without any thyroid enlargement or abnormal cervical lymph nodes. His neck veins are distended about 7-8 cm above sternal angle. Oral mucosa is moist and healthy. Pupils equal and reactive to light and sclerae are anicteric. CARDIAC: Heart sounds are regular with systolic murmur grade 1/6. RESPIRATORY: Lungs sound clear to auscultation bilaterally. ABDOMEN: Soft and nontender and without a palpable organomegaly. Bowel sounds are normal. EXTREMITIES: No cyanosis or clubbing. Arteriovenous (AV) fistula in the right arm is patent. There is mild edema on his right foot and his third and fourth toes are wrapped in dressing. NEUROLOGIC: He is awake, alert and oriented times three. SKIN: Wound on his right buttock is covered with dressing. LABORATORY DATA: Today's labs show WBC count 6.0, hemoglobin 8.6 and hematocrit 26.9. Platelets 173. Sodium 135 and potassium 4.3. BUN 53 and creatinine 6.58. Calcium 7.4, phosphorus 5.0 and magnesium 2.1. PROBLEMS: 1. End-stage renal disease. The patient is regularly dialyzed on Sunday, Sunday and Sunday schedule. He was dialyzed on Sunday and we will schedule his next hemodialysis for tomorrow morning. 2. Acute blood loss anemia with gastrointestinal bleed. His anemia has been stable since he was initially transfused on January 31. He received four units of packed red blood cells (RBCs) at that time. Will continue to monitor his complete blood count (CBC) and give him Aranesp 200 mcg once a week during dialysis. 3. Cellulitis right leg and infected toe on right foot. The patient remains on vancomycin and Zosyn. He will be given vancomycin 1 gram after dialysis and the Zosyn dose is adjusted for end-stage renal disease. 4. Hypertension. Blood pressure is well controlled and currently he is not on any antihypertensive medications. 5. Secondary hyperparathyroidism. The patient remains on Sensipar 30 mg daily and he is currently not on any phosphate binders. 6. Protein calorie malnutrition. This is related to acute infection and GI bleed. The patient is eating well now and we have added Nepro one can daily. As his infection improves, we anticipate improvement in his nutritional status.
[2017-02-04] MEDS: ATORVASTATIN 20 MG TAB PO SCH (20:18)
[2017-02-04 22:00] VITALS: BP 120/59
[2017-02-05] VITALS (7 sets, daily range): BP systolic 105–142; BP diastolic 55–78
[2017-02-05] MEDS: PIPERACILLIN/TAZOBACTAM SOD 2.25 GM in D5W MINI-BAG PLUS 50 ML IV SCH ×3 (05:23→20:27)
[2017-02-05 06:04] LABS: MEAN CORPUSCULAR HEMOGLOBIN 30.3 pg (27.0-33.0); MEAN CORPUSCULAR HGB CONC 33.1 g/dl (32.0-36.5); MEAN CORPUSCULAR VOLUME 91.7 fl (80.0-96.0); RED CELL DISTRIBUTION WIDTH 17.4 % (11.5-14.5); WHITE BLOOD COUNT 4.8 K/mm3 (4.0-10.0)
[2017-02-05 06:34] LABS: CALCIUM LEVEL 7.3 MG/DL (8.8-10.2); CREATININE FOR GFR 8.45 MG/DL (0.70-1.30); GLOMERULAR FILTRATION RATE 6.7 (>49); MAGNESIUM LEVEL 2.1 MG/DL (1.8-2.4); PHOSPHORUS LEVEL 6.1 MG/DL (2.5-4.9); POTASSIUM SERUM 4.4 MEQ/L (3.5-5.1)
[2017-02-05] MEDS: HumaLOG INSULIN (NovoLOG) PER UNIT SC SCH ×4 (06:41→20:11)
[2017-02-05] MEDS: PANTOPRAZOLE 40MG INJ (PROTONIX) (C9113) IV SCH ×2 (07:48→20:28)
--- NOTE | 2017-02-05 11:32 | IPN ---
DATE OF VISIT: 02/05/2017 Mr. Tyson is seen this morning on his bedside. He is currently undergoing hemodialysis. The patient is feeling well and denies any dyspnea, chest pain, nausea, vomiting, fever, or chills. He is scheduled for his toe amputation later today. He has been nothing by mouth. On physical examination, temperature 97.7 degrees Fahrenheit, heart rate 78 per minute, and respiratory rate 18 per minute. Blood pressure 105/59 mmHg and oxygen saturation 98% on room air. Neck is supple and without jugular venous distention (JVD) or thyroid enlargement. Head is atraumatic. Heart sounds are regular. Lungs clear to auscultation. Abdomen: Soft and nontender. Bowel sounds are normal. Extremities have no cyanosis or clubbing. Skin has no rash or ulcers. Neurologically, he is awake, alert, and oriented times three. Today's laboratories show WBC count 4.8, hemoglobin 8.3, and hematocrit 25.2. Platelets 167. Sodium 140, potassium 4.4. BUN 70 and creatinine 8.45. PROBLEMS: 1. End-stage renal disease. The patient is being dialyzed today, and he is tolerating his dialysis treatment very well. 2. Anemia. He did have gastrointestinal (GI) bleed on admission and required transfusions. We will give him 1 more unit of packed red blood cells today. 3. Gangrenous toe, right foot. The patient is scheduled for toe amputation later today. He remains on Zosyn and vancomycin for cellulitis and diabetic foot ulcer. 4. Hyperphosphatemia. Phosphorus level is slightly high again today. This is likely to improve with dialysis. I will go ahead and order phosphate binders with meals.
[2017-02-05] MEDS: (RENVELA) SEVELAMER **CARBONate** 800 MG TAB PO SCH ×2 (12:30→17:17)
[2017-02-05] MEDS ORDERED: BUPIVACAINE HCL 0.5% 10 ML VIAL As Ordered ONE (14:46)
[2017-02-05] MEDS ORDERED: LIDOCAINE 1% MDV 20ML VIAL As Ordered ONE (14:46)
[2017-02-05] MEDS: CHECK TO SEE IF PATIENT IS RECEIVING DIALYSIS TODAY AND REFER TO THE VANCOMYCIN ORDER XX SCH (16:00)
[2017-02-05] MEDS: CINACALCET 30 MG TAB (SENSIPAR) PO SCH (17:17)
[2017-02-05] MEDS ORDERED: fentaNYL 100 MCG/2 ML INJECTION (J3010) As Ordered ONE (18:05)
[2017-02-05] MEDS ORDERED: PROPOFOL 200 MG/20 ML VIAL As Ordered ONE (18:05)
[2017-02-05] MEDS ORDERED: MIDAZOLAM INJ 2 MG/2 ML VIAL (J2250) As Ordered ONE (18:05)
[2017-02-05] MEDS ORDERED: LIDOCAINE 2% INJ 100 MG/5 ML SDV (FOR ANES.) As Ordered ONE (18:34)
[2017-02-05] MEDS ORDERED: ONDANSETRON 4MG/2ML VIAL (J2405) IV PRN (19:30)
[2017-02-05] MEDS ORDERED: PERCOCET 5MG/325MG TAB PO PRN (19:30)
[2017-02-05] MEDS ORDERED: METOCLOPRAMIDE INJ 10MG/2ML VIAL (J2765) IV PRN (19:30)
[2017-02-05] MEDS ORDERED: LR 1,000 ML IV SCH (19:30)
[2017-02-05] MEDS ORDERED: fentaNYL 100 MCG/2 ML INJECTION (J3010) IV PRN (19:30)
--- NOTE | 2017-02-05 19:58 | IPN ---
DATE: 02/05/2017 SUBJECTIVE: The patient reports that he feels well. He is eager to have his surgery. He has no complaints. He is not in any pain. OBJECTIVE: VITAL SIGNS: Temperature 97.5, pulse 91, respiratory rate 18, blood pressure 142/78, oxygen saturation 99% on room air. GENERAL: He is an obese, pleasant, man sitting up in bed. He is in no distress. He is accompanied by his and his family members. HEENT: Cranial nerves II-XII are grossly intact. He has moist mucous membranes, no elevation of CVP. CARDIOVASCULAR EXAM: S1, S2, regular. RESPIRATORY EXAM: Clear. ABDOMINAL EXAM: Grossly obese. EXTREMITIES: His dressings are clean, dry and intact. LABORATORY STUDIES: WBC 4.8, hemoglobin 8.3, platelet count 167. Chemistry panel: Sodium 140, potassium 4.4, chloride 106, bicarbonate 23, BUN 70, creatinine 8.5. No new imaging. ASSESSMENT AND PLAN: This is a 67-year-old man who presented with a gastrointestinal (GI) bleed secondary to duodenal ulcer, now awaiting amputation of osteomyelitis of the right third toe. PROBLEM: 1. Gastrointestinal bleed and acute blood loss anemia secondary to duodenal ulcer. Dr. Green's help is appreciated. He is continued on Protonix twice a day. Hemoglobin and hematocrit are stable. Dr. Mayorga has decided to transfuse him one unit before procedure and hemodialysis today. We will continue to monitor. He will have to followup his duodenal biopsy results outpatient with Dr. Green. 2. Equivocal troponin. He might have some coronary artery disease. He should outpatient stress testing. 3. Osteomyelitis of the right 3rd toe. The patient is scheduled for the OR today. He currently on vancomycin and Zosyn. Recommend following up with culture data and narrowing antibiotic spectrum as appropriate. I suspect Bactrim would be sufficient. 4. Right gluteal/thigh abscess versus hematoma. Dr. Dumont's help is greatly appreciated. He is status post incision and drainage. He has these recurrently over years and he gets them taken care of at urgent care. I suspect he would do better with regular followup with Dr. Dumont in surgical clinic. 5. End-stage renal disease, on hemodialysis. His regular schedule is Sunday, Sunday, Sunday. He is on Sensipar. 6. Type 2 diabetes. He is on sliding scale and hypoglycemic protocol. He is on a renal consistent carbohydrate diet. 7. Dyslipidemia. He is on Lipitor. 8. Hypertension. He is actually chronically hypotensive and normally takes atenolol; however, he does not appear to be requiring this at all during his stay.
[2017-02-05] MEDS: ATORVASTATIN 20 MG TAB PO SCH (20:28)
[2017-02-06] VITALS (8 sets, daily range): BP systolic 116–159; BP diastolic 56–86
[2017-02-06] MEDS: PIPERACILLIN/TAZOBACTAM SOD 2.25 GM in D5W MINI-BAG PLUS 50 ML IV SCH ×2 (03:48→12:35)
[2017-02-06 05:55] LABS: MEAN CORPUSCULAR HEMOGLOBIN 30.1 pg (27.0-33.0); MEAN CORPUSCULAR HGB CONC 32.7 g/dl (32.0-36.5); MEAN CORPUSCULAR VOLUME 92.1 fl (80.0-96.0); RED CELL DISTRIBUTION WIDTH 17.4 % (11.5-14.5); WHITE BLOOD COUNT 5.8 K/mm3 (4.0-10.0)
[2017-02-06 06:33] LABS: ALBUMIN 2.1 GM/DL (3.2-5.2); CREATININE FOR GFR 5.35 MG/DL (0.70-1.30); GLOMERULAR FILTRATION RATE 11.4 (>49); MAGNESIUM LEVEL 2.1 MG/DL (1.8-2.4); PHOSPHORUS LEVEL 3.9 MG/DL (2.5-4.9); POTASSIUM SERUM 4.3 MEQ/L (3.5-5.1)
[2017-02-06] MEDS: PANTOPRAZOLE 40MG INJ (PROTONIX) (C9113) IV SCH ×2 (08:38→20:32)
[2017-02-06] MEDS: (RENVELA) SEVELAMER **CARBONate** 800 MG TAB PO SCH ×3 (08:38→17:34)
[2017-02-06] MEDS: HumaLOG INSULIN (NovoLOG) PER UNIT SC SCH ×4 (08:40→20:41)
--- NOTE | 2017-02-06 10:49 | RO ---
DATE OF PROCEDURE: 02/05/2017 PREPROCEDURE DIAGNOSES: Right 3rd toe osteomyelitis and infection. POSTPROCEDURE DIAGNOSES: Right 3rd toe osteomyelitis and infection. PROCEDURE: Right 3rd toe amputation. SURGEON: Dimas Moscoso DPM CONTENT ASSISTANT: None ANESTHESIA: Monitored anesthesia care with preoperative injection of 17 mL of 1:1 mixture of 1% lidocaine plain and 0.5% Marcaine plain. ESTIMATED BLOOD LOSS: Minimal. MATERIALS: 3-0 nylon and TLS drain. COMPLICATIONS: None. PATHOLOGY: Right 3rd toe and bone, aerobic and anaerobic for culture. Kristopher Tyson is a 67-year-old male who was admitted to the hospital with gastrointestinal (GI) bleed. During this time, it was noted that he had an ulceration to his 3rd toe with necrosis. An MRI was performed, which showed osteomyelitis to the distal middle and proximal phalange. Decision was made to bring him to the operating room. The patient's side and site were identified and marked in the preoperative holding area. Consent was reviewed and obtained. All risks, complications, and alternatives to the procedure were explained to the patient in detail. All questions were answered. DESCRIPTION OF PROCEDURE: The patient was brought to the operating room and placed on the operating table in supine position. Monitored anesthesia care was delivered by the anesthesia team. A preoperative injection of 17 mL of 1:1 mixture of 1% lidocaine plain and 0.5% Marcaine plain were injected to the right foot. The right foot was prepped and draped in normal sterile fashion. A tourniquet was applied to the right ankle but not inflated during the case. An elliptical incision was made surrounding the right 3rd toe, which was carried through with a #15 blade full thickness to bone. The toe was disarticulated at the metatarsophalangeal joint. The bone of the proximal phalanx was noted to be remarkably soft and fractured from the infection itself. The metatarsal head was inspected. This appeared free of infection and was firm to palpation with metal instrument. The wound was debrided of necrotic tissue and tendon. The site was irrigated with normal saline. No further necrosis was noted. The incision was closed over a TLS drain with 3-0 nylon. Sterile dressings were applied. The patient was brought to postanesthesia care unit (PACU) with vital signs stable and neurovascular status intact. He will be readmitted to the floor. The patient will be able to be discharged most likely on oral Bactrim once other medical issues are resolved. MTDD
--- NOTE | 2017-02-06 13:45 | IPN ---
DATE: 02/06/2017 Mr. Tyson is seen this morning on his bedside. He is feeling much better today and denies any dyspnea, chest pain, nausea, vomiting, fever or chills. He underwent amputation of his right fourth toe yesterday. The patient also had dialysis treatment yesterday prior to surgery. PHYSICAL EXAMINATION: Temperature 99.2 degrees Fahrenheit, heart rate 86 per minute and respiratory rate 18 per minute. Blood pressure 138/70 mmHg and oxygen saturation 99% on room air. His head is atraumatic. Ears, nose and throat are unremarkable. Neck is supple and without jugular venous distention (JVD) or thyroid enlargement. Heart sounds are regular and lungs clear to auscultation. Abdomen is soft and nontender and bowel sounds are normal. There is no palpable organomegaly. Extremities have no cyanosis or clubbing. Skin has no rash or ulcers. Right lower leg cellulitis has improved. Right foot is wrapped in dressing. His wound culture showed multiple organisms. Blood cultures have been negative so far. Today's labs show WBC count 5.8, hemoglobin 9.2 and hematocrit 28.3. Sodium 139 and potassium 4.3. BUN 37 and creatinine 5.35. PROBLEMS: 1. End-stage renal disease. The patient was dialyzed yesterday. His next dialysis will be scheduled for tomorrow. 2. Cellulitis and toe infection. The patient remains on IV antibiotics. His toe has been amputated due to gangrene. Cellulitis on the right leg has almost completely resolved. 3. Anemia. The patient had acute blood loss anemia due to GI bleed. He received one more unit of packed red blood cells yesterday. Anemia has now improved. We will continue to monitor and treat him with Aranesp once a week during dialysis. 4. Hypertension. Blood pressure is very well controlled at present on current medications. No changes are needed.
[2017-02-06] MEDS: CHECK TO SEE IF PATIENT IS RECEIVING DIALYSIS TODAY AND REFER TO THE VANCOMYCIN ORDER XX SCH (14:39)
--- NOTE | 2017-02-06 14:41 | IPN ---
DATE: 02/06/2017 The patient is seen and examined at the bedside. Denies overnight complaints. States no pain in his foot. He has been afebrile overnight. Maximum temperature (t-max) is 99.2. Laboratories reviewed. White blood count is 5.8, hemoglobin is 9.2. Operating room wound cultures are pending. Pathology is pending. Lower extremity exam: Dressing is clean, dry and intact. TLS drain is intact with about 5 mL of drainage. ASSESSMENT: 67-year-old male status post third toe amputation. PLAN: We will plan to change dressing tomorrow and most likely remove TLS drain at that time. It is okay to weight bear in the postoperative shoe. He will be able to be discharged on oral medications from a podiatry standpoint.
[2017-02-06] MEDS: CINACALCET 30 MG TAB (SENSIPAR) PO SCH (17:34)
--- NOTE | 2017-02-06 17:36 | IPNPDOC ---
Subjective Date Seen The patient was seen on 02/06/17. Subjective Chief Complaint/HPI The patient is a 67-year-old male admitted with a reason for visit of Gi Hemorrhage. Events since last encounter no acute events overnight. no further GI bleed, LE pain tolerable, denied f/c/cp / sob/n/v. tolerated PO General: Denies: Chills Constitutional: Denies: Chills, Fever ENT: Denies: Head Aches, Ear Pain Pulmonary: Denies: Dyspnea, Cough Cardiovascular: Denies: Chest Pain, Palpitations Gastrointestinal: Denies: Nausea, Vomiting, Abdominal Pain Genitourinary: Denies: Dysuria Objective Physical Examination General Exam: Positive: Alert, Cooperative, No Acute Distress Eye Exam: Positive: Conjunctiva & lids normal ENT Exam: Positive: Atraumatic, Mucous membr. moist/pink Neck Exam: Positive: Supple, JVD Chest Exam: Positive: Clear to auscultation, Normal air movement Heart Exam: Positive: Rate Normal, Normal S1, Normal S2, Murmurs Abdomen Exam: Positive: Normal bowel sounds, Soft, Tenderness Extremity Exam: Positive: Other (right le dressing c/d/i) Assessment /Plan Assessment a 67-year-old male patient with underlying medical history of end-stage renal disease on hemodialysis Sunday, Sunday, Sunday, type 2 diabetes, non insulin dependent, history of coronary arterial disease, transient ischemic attack (TIA), a/w gastrointestinal (GI) bleed secondary to duodenal ulcer and osteomyelitis of the right third toe. s/p amputation Problems (1) Osteomyelitis Problem Text: s/p amputation, was on vanco and zosyn, switched to Bactrim after d/w Dr Moscoso culture apprecaited (2) Elevated troponin Problem Text: 2/2 to demand ischemia, need outpatient stress with cardiology (3) Abscess, gluteal, right Problem Text: abscess versus hematoma. Dr. Dumont's help is greatly appreciated. He is status post incision and drainage. He has these recurrently over years and he gets them taken care of at urgent care. I suspect he would do better with regular followup with Dr. Dumont in surgical clinic. (4) ESRD (end stage renal disease) Problem Text: c/w Sensipar Renal consulted HD MWF (5) DMII (diabetes mellitus, type 2) Problem Text: consistent carb diet, insulin as per protocol f/u fs (6) HLD (hyperlipidemia) Problem Text: statin (7) HTN (hypertension) Problem Text: GI bleed, hold PO BP med restart as needed (8) Gastrointestinal hemorrhage Status: Acute Problem Text: s/p EGD, duodenal ulcer, PPI bid Dr Green consulted f/u HH Plan/VTE VTE Prophylaxis Ordered?: Yes (teds SCQ, no AC given bleed) Disposition Pending clinical improvement, PFS wound care VS, I&O, 24H, Fishbone Vital Signs/I&O Vital Signs Date Time Temp Pulse Resp B/P (MAP) Pulse Ox O2 Delivery O2 Flow Rate FiO2 02/06/17 14:00 99.0 85 18 134/80 (98) 99 Room Air 02/02/17 00:00 97 02/01/17 12:38 1.0 I&O- Last 24 Hours up to 6 AM 02/06/17 06:00 Intake Total 1125 ml Output Total 2290 ml Balance -1165 ml Laboratory Data 24H LABS Laboratory Tests 2 02/05/17 19:01: Bedside Glucose (Misc Panel) 62L 02/06/17 05:14: Blood Urea Nitrogen 37H, Creatinine 5.35H, Sodium Level 139, Potassium Level 4.3 , Chloride Level 105, Carbon Dioxide Level 25, Anion Gap 9, Glomerular Filtration Rate 11.4L, Calcium Level 8.0L, Phosphorus Level 3.9#, Magnesium Level 2.1, Albumin 2.1L 02/06/17 11:56: Bedside Glucose (Misc Panel) 148H 02/06/17 16:48: Bedside Glucose (Misc Panel) 169H CBC/BMP Laboratory Tests 02/06/17 05:14 Red Blood Count 3.07 L, Mean Corpuscular Volume 92.1, Mean Corpuscular Hemoglobin 30.1, Mean Corpuscular Hemoglobin Concent 32.7, Red Cell Distribution Width 17.4 H, Anion Gap 9 Microbiology Microbiology 01/31/17 Blood Culture - Final, Complete NO GROWTH AFTER 5 DAYS 02/04/17 Stool Occult Blood (NATHAN) - Final, Complete 02/05/17 Anaerobic Culture, Received Pending 02/05/17 Gram Stain - Final, Resulted 02/05/17 Abscess Culture, Resulted Pending 02/01/17 Wound Culture - Final, Complete Morganella Morganii Sp Sibonii Morganella Morganii Ssp Chase Escherichia Coli Staphylococcus Aureus YOBANY LAMBERT MD Feb 06, 2017 17:36
[2017-02-06] MEDS: ATORVASTATIN 20 MG TAB PO SCH (20:33)
[2017-02-06] MEDS ORDERED: BACTRIM 160MG/800MG DS TAB PO ONE (21:00)
[2017-02-07 06:00] VITALS: BP_SYST 136; BP_SYST 137; BP_SYST 155; BP_SYST 169; BP_DIAS 72; BP_DIAS 73; BP_DIAS 79; BP_DIAS 90
[2017-02-07 06:07] LABS: MEAN CORPUSCULAR HEMOGLOBIN 29.9 pg (27.0-33.0); MEAN CORPUSCULAR HGB CONC 32.3 g/dl (32.0-36.5); MEAN CORPUSCULAR VOLUME 92.6 fl (80.0-96.0); RED CELL DISTRIBUTION WIDTH 17.1 % (11.5-14.5); WHITE BLOOD COUNT 5.8 K/mm3 (4.0-10.0)
[2017-02-07] MEDS: PANTOPRAZOLE 40MG INJ (PROTONIX) (C9113) IV SCH ×2 (06:09→21:38)
[2017-02-07] MEDS: (RENVELA) SEVELAMER **CARBONate** 800 MG TAB PO SCH ×3 (06:10→18:22)
[2017-02-07 06:23] LABS: ALBUMIN 2.1 GM/DL (3.2-5.2); CALCIUM LEVEL 7.9 MG/DL (8.8-10.2); CREATININE FOR GFR 6.81 MG/DL (0.70-1.30); GLOMERULAR FILTRATION RATE 8.6 (>49); MAGNESIUM LEVEL 1.9 MG/DL (1.8-2.4); PHOSPHORUS LEVEL 4.5 MG/DL (2.5-4.9); POTASSIUM SERUM 4.3 MEQ/L (3.5-5.1)
[2017-02-07] MEDS: HumaLOG INSULIN (NovoLOG) PER UNIT SC SCH ×4 (07:48→21:00)
[2017-02-07] MEDS: CHECK TO SEE IF PATIENT IS RECEIVING DIALYSIS TODAY AND REFER TO THE VANCOMYCIN ORDER XX SCH (16:00)
--- NOTE | 2017-02-07 18:18 | IPNPDOC ---
Subjective Date Seen The patient was seen on 02/07/17. Subjective Chief Complaint/HPI The patient is a 67-year-old male admitted with a reason for visit of Gi Hemorrhage. Events since last encounter no acute events, denied f/c abd pain/n/v/diarrhea/cp. Comfortable Constitutional: Denies: Chills, Fever Eyes: Denies: Pain ENT: Denies: Head Aches, Ear Pain Pulmonary: Denies: Dyspnea, Cough Cardiovascular: Denies: Chest Pain, Palpitations Gastrointestinal: Denies: Nausea, Vomiting, Abdominal Pain, Diarrhea, Constipation Objective Physical Examination General Exam: Positive: Alert, Cooperative, No Acute Distress Eye Exam: Positive: Conjunctiva & lids normal ENT Exam: Positive: Atraumatic, Mucous membr. moist/pink Neck Exam: Positive: Supple, JVD Chest Exam: Positive: Clear to auscultation, Normal air movement Heart Exam: Positive: Rate Normal, Normal S1, Normal S2, Murmurs Abdomen Exam: Positive: Normal bowel sounds, Soft, Tenderness Extremity Exam: Positive: Other (right le dressing c/d/i) Assessment /Plan Problems (1) Osteomyelitis Problem Text: s/p amputation, was on vanco and zosyn, switched to Bactrim after d/w Dr Moscoso culture apprecaited (2) Elevated troponin Problem Text: 2/2 to demand ischemia, need outpatient stress with cardiology (3) Abscess, gluteal, right Problem Text: abscess versus hematoma. Dr. Dumont's help is greatly appreciated. He is status post incision and drainage. He has these recurrently over years and he gets them taken care of at urgent care. I suspect he would do better with regular followup with Dr. Dumont in surgical clinic. (4) ESRD (end stage renal disease) Problem Text: c/w Sensipar Renal consulted HD MWF (5) DMII (diabetes mellitus, type 2) Problem Text: consistent carb diet, insulin as per protocol f/u fs (6) HLD (hyperlipidemia) Problem Text: statin (7) HTN (hypertension) Problem Text: GI bleed, hold PO BP med restart as needed (8) Gastrointestinal hemorrhage Status: Acute Problem Text: s/p EGD, duodenal ulcer, PPI bid Dr Green consulted f/u HH stable Plan/VTE VTE Prophylaxis Ordered?: Yes (teds SCQ, no AC given bleed) Disposition teaching regarding wound care, PT. VS, I&O, 24H, Fishbone Vital Signs/I&O Vital Signs Date Time Temp Pulse Resp B/P (MAP) Pulse Ox O2 Delivery O2 Flow Rate FiO2 02/07/17 09:00 Room Air 02/07/17 06:00 82 137/73 (94) 83 155/79 (104) 92 169/90 (116) 02/07/17 06:00 98.1 17 97 02/02/17 00:00 97 02/01/17 12:38 1.0 I&O- Last 24 Hours up to 6 AM 02/07/17 06:00 Intake Total 1200 ml Output Total 426 ml Balance 774 ml Laboratory Data 24H LABS Laboratory Tests 2 02/06/17 20:25: Bedside Glucose (Misc Panel) 137H 02/07/17 05:24: Blood Urea Nitrogen 54H, Creatinine 6.81H, Sodium Level 142, Potassium Level 4.3 , Chloride Level 108H, Carbon Dioxide Level 24, Anion Gap 10, Glomerular Filtration Rate 8.6L, Calcium Level 7.9L, Phosphorus Level 4.5, Magnesium Level 1.9, Albumin 2.1L 02/07/17 17:35: Bedside Glucose (Misc Panel) 136H CBC/BMP Laboratory Tests 02/07/17 05:24 Red Blood Count 2.93 L, Mean Corpuscular Volume 92.6, Mean Corpuscular Hemoglobin 29.9, Mean Corpuscular Hemoglobin Concent 32.3, Red Cell Distribution Width 17.1 H, Anion Gap 10 Microbiology Microbiology 01/31/17 Blood Culture - Final, Complete NO GROWTH AFTER 5 DAYS 02/04/17 Stool Occult Blood (NATHAN) - Final, Complete 02/05/17 Anaerobic Culture - Final, Complete 02/05/17 Gram Stain - Final, Complete 02/05/17 Abscess Culture - Final, Complete 02/01/17 Wound Culture - Final, Complete Morganella Morganii Sp Sibonii Morganella Morganii Ssp Chase Escherichia Coli Staphylococcus Aureus YOBANY LAMBERT MD Feb 07, 2017 18:18
[2017-02-07] MEDS: CINACALCET 30 MG TAB (SENSIPAR) PO SCH (18:22)
--- NOTE | 2017-02-07 18:24 | IPN ---
DATE: 02/07/2017 Mr. Tyson is seen this morning on his bedside. He is resting comfortably in the bed. He denies any nausea, vomiting, dyspnea or chest pain. There are no fever or chills. PHYSICAL EXAMINATION: On physical examination, temperature 98.1 degrees Fahrenheit, heart rate 82 per minute and respiratory rate 16 per minute. Blood pressure 137/73 mmHg and oxygen saturation 97% on room air. Head is atraumatic. Ears, nose and throat are unremarkable. Neck is supple and jugular venous distention (JVD) is elevated at about 8 cm above the sternal angle. Pupils are equal and reactive to light and sclera is anicteric. Heart sounds are regular and lungs with slightly diminished breath sounds at the bases. Abdomen is soft, nontender and without any palpable organomegaly. Bowel sounds are normal. Extremities have no cyanosis or clubbing. Right foot is wrapped. Right buttock area wound is also covered with dressing. Neurologically, he is awake, alert and oriented times three. LABORATORY DATA: Today's laboratories show WBC count 5.8, hemoglobin 8.7 and hematocrit 27.1. Sodium 142 and potassium 4.3. BUN 54 and creatinine 6.81. PROBLEMS: 1. End-stage renal disease. The patient is due for dialysis today. We are going to dialyze him early this afternoon. I already wrote his dialysis orders for today. We will try to remove about 3-4 liters of fluid as tolerated. His electrolytes are within normal range. There is no bleeding at this point, so we can use heparin as needed. 2. Anemia. The patient had acute blood loss anemia due to gastrointestinal (GI) bleed. He has been stable since he was initially transfused. He has received Aranesp 300 mcg once a week during dialysis. We will monitor his complete blood count (CBC) on a daily basis. 3. Cellulitis and gangrenous toe, right foot. The patient had his toe amputated and cellulitis has improved. His antibiotic has been switched to oral Bactrim DS one tablet twice a day. Vancomycin and Zosyn have been stopped. 4. Diabetes. His diabetes remains reasonably well-controlled on the current regimen.
[2017-02-07] MEDS: BACTRIM 80MG/400MG TAB PO SCH (21:37)
[2017-02-07] MEDS: ATORVASTATIN 20 MG TAB PO SCH (21:37)
[2017-02-07 22:00] VITALS: BP 153/74
--- NOTE | 2017-02-08 05:36 | IPN ---
DATE: 02/07/2017 SUBJECTIVE: Patient is seen and examined at bedside. Denies overnight complaints. States no pain in foot. Denies nausea or vomiting, fever or chills. Vitals are reviewed. He has been afebrile. Overnight temperature maximum (T-max) is 99.1. LABORATORY DATA: Labs are reviewed. White blood cell count is 5.8, hemoglobin 8.7. Operating room (OR) cultures show no growth. LOWER EXTREMITY EXAMINATION: Minimal drainage with a TLS drain tube. Dressings are removed. Sutures are intact. No sign of dehiscence. No erythema to incision site. ASSESSMENT: A 67-year-old male status post third toe amputation. PLAN: Dressings changed. Daughter is present for dressing. Instructions are given. Dressing will be changed every other day. He is to ambulate in postoperative shoe. He will followup in my office next Sunday or . Suggest he be discharged on oral Bactrim for one week's worth of time.
[2017-02-08 05:37] LABS: MEAN CORPUSCULAR HEMOGLOBIN 29.1 pg (27.0-33.0); MEAN CORPUSCULAR HGB CONC 31.5 g/dl (32.0-36.5); MEAN CORPUSCULAR VOLUME 92.2 fl (80.0-96.0); RED CELL DISTRIBUTION WIDTH 17.9 % (11.5-14.5)
[2017-02-08 05:49] LABS: ALBUMIN 2.1 GM/DL (3.2-5.2); CALCIUM LEVEL 7.8 MG/DL (8.8-10.2); CREATININE FOR GFR 5.03 MG/DL (0.70-1.30); GLOMERULAR FILTRATION RATE 12.2 (>49); PHOSPHORUS LEVEL 3.7 MG/DL (2.5-4.9); POTASSIUM SERUM 4.2 MEQ/L (3.5-5.1)
[2017-02-08 06:00] VITALS: BP 133/70
[2017-02-08] MEDS: PANTOPRAZOLE 40MG INJ (PROTONIX) (C9113) IV SCH (09:22)
[2017-02-08] MEDS: (RENVELA) SEVELAMER **CARBONate** 800 MG TAB PO SCH ×3 (09:24→17:39)
[2017-02-08] MEDS: HumaLOG INSULIN (NovoLOG) PER UNIT SC SCH ×4 (09:24→21:00)
[2017-02-08 14:00] VITALS: BP 141/76
[2017-02-08] MEDS: CHECK TO SEE IF PATIENT IS RECEIVING DIALYSIS TODAY AND REFER TO THE VANCOMYCIN ORDER XX SCH (16:00)
[2017-02-08] MEDS: CINACALCET 30 MG TAB (SENSIPAR) PO SCH (17:39)
--- NOTE | 2017-02-08 18:13 | IPNPDOC ---
Subjective Date Seen The patient was seen on 02/08/17. Subjective Chief Complaint/HPI The patient is a 67-year-old male admitted with a reason for visit of Gi Hemorrhage. Events since last encounter no acute events overnight, comfortable tolerated oral, Denied cp/sob/abd pain/n/ v/f/c Constitutional: Denies: Chills, Fever ENT: Denies: Head Aches Pulmonary: Denies: Dyspnea, Cough Cardiovascular: Denies: Chest Pain, Palpitations Gastrointestinal: Denies: Nausea, Vomiting, Abdominal Pain, Diarrhea, Constipation Objective Physical Examination General Exam: Positive: Alert, Cooperative, No Acute Distress Eye Exam: Positive: Conjunctiva & lids normal ENT Exam: Positive: Atraumatic, Mucous membr. moist/pink Neck Exam: Positive: Supple, JVD Chest Exam: Positive: Clear to auscultation, Normal air movement Heart Exam: Positive: Rate Normal, Normal S1, Normal S2, Murmurs Abdomen Exam: Positive: Normal bowel sounds, Soft, Tenderness Extremity Exam: Positive: Other (right le dressing c/d/i) Assessment /Plan Assessment 67-year-old male patient with underlying medical history of end-stage renal disease on hemodialysis Sunday, Sunday, Sunday, type 2 diabetes, non insulin dependent, history of coronary arterial disease, transient ischemic attack (TIA), a/w gastrointestinal (GI) bleed secondary to duodenal ulcer and osteomyelitis of the right third toe. s/p amputation Problems (1) Osteomyelitis Problem Text: s/p amputation, was on vanco and zosyn, switched to Bactrim after d/w Dr Moscoso culture apprecaited wound care teaching (2) Elevated troponin Problem Text: 2/2 to demand ischemia, need outpatient stress with cardiology (3) Abscess, gluteal, right Problem Text: abscess versus hematoma. Dr. Dumont's help is greatly appreciated. He is status post incision and drainage. He has these recurrently over years and he gets them taken care of at urgent care. I suspect he would do better with regular followup with Dr. Dumont in surgical clinic. (4) ESRD (end stage renal disease) Problem Text: c/w Sensipar Renal consulted HD MWF (5) DMII (diabetes mellitus, type 2) Problem Text: consistent carb diet, insulin as per protocol f/u fs (6) HLD (hyperlipidemia) Problem Text: statin (7) HTN (hypertension) Problem Text: GI bleed, hold PO BP med restart as needed (8) Gastrointestinal hemorrhage Status: Acute Problem Text: s/p EGD, duodenal ulcer, PPI bid Dr Green consulted f/u HH stable Plan/VTE VTE Prophylaxis Ordered?: Yes (teds SCQ, no AC given bleed) Disposition Likely DC Sat, Pending PT and wound car teaching VS, I&O, 24H, Fishbone Vital Signs/I&O Vital Signs Date Time Temp Pulse Resp B/P (MAP) Pulse Ox O2 Delivery O2 Flow Rate FiO2 02/08/17 14:00 98.8 96 18 141/76 (97) 96 Room Air 02/02/17 00:00 97 I&O- Last 24 Hours up to 6 AM 02/08/17 06:00 Intake Total 900 ml Output Total 4511 ml Balance -3611 ml Laboratory Data 24H LABS Laboratory Tests 2 02/07/17 20:00: Bedside Glucose (Misc Panel) 219H 02/08/17 04:48: Blood Urea Nitrogen 34H, Creatinine 5.03H, Sodium Level 139, Potassium Level 4.2 , Chloride Level 104, Carbon Dioxide Level 28, Anion Gap 7L, Glomerular Filtration Rate 12.2L, Calcium Level 7.8L, Phosphorus Level 3.7, Magnesium Level 2.0, Albumin 2.1L 02/08/17 11:29: Bedside Glucose (Misc Panel) 201H 02/08/17 16:25: Bedside Glucose (Misc Panel) 163H CBC/BMP Laboratory Tests 02/08/17 04:48 Red Blood Count 3.04 L, Mean Corpuscular Volume 92.2, Mean Corpuscular Hemoglobin 29.1, Mean Corpuscular Hemoglobin Concent 31.5 L, Red Cell Distribution Width 17.9 H, Anion Gap 7 L Microbiology Microbiology 01/31/17 Blood Culture - Final, Complete NO GROWTH AFTER 5 DAYS 02/04/17 Stool Occult Blood (NATHAN) - Final, Complete 02/05/17 Anaerobic Culture - Final, Complete 02/05/17 Gram Stain - Final, Complete 02/05/17 Abscess Culture - Final, Complete 02/01/17 Wound Culture - Final, Complete Morganella Morganii Sp Sibonii Morganella Morganii Ssp Chase Escherichia Coli Staphylococcus Aureus YOBANY LAMBERT MD Feb 08, 2017 18:13
--- NOTE | 2017-02-08 21:11 | IPN ---
DATE: 02/08/2017 Mr. Tyson is seen this morning on his bedside. He just finished eating breakfast and is sitting at the edge of bed. He is feeling well and reports that he slept well last night. He denies any nausea, vomiting, dyspnea, chest pain, fever or chills. PHYSICAL EXAMINATION: Temperature 98.3 degrees Fahrenheit, heart rate 85 per minute and respiratory rate 17 per minute. Blood pressure 133/70 mmHg and oxygen saturation 98% on room air. Head: Is atraumatic. Ears, nose and throat are unremarkable. Neck is supple and without jugular venous distention (JVD). Heart: Sounds are regular and lungs clear to auscultation bilaterally. Abdomen: Soft and nontender. Bowel sounds normal and there is no palpable organomegaly. Extremities: Have no cyanosis or clubbing. Right arm atrioventricular (AV) fistula is patent. His right foot is wrapped in dressing. Today's labs show WBC count 6.0, hemoglobin 8.8 and hematocrit 28.0. Sodium 139 and potassium 4.2. BUN 34 and creatinine 5.0. PROBLEM LIST: 1. End-stage renal disease. The patient was dialyzed yesterday and will be dialyzed again tomorrow, which is his regular schedule. Volume status is well-compensated and electrolytes are within normal range. 2. Anemia. He had GI bleed on admission and required multiple transfusions. At present his anemia is stable and he receives Aranesp during hemodialysis once a week. CBC will be checked again tomorrow morning. 3. Cellulitis right foot and gangrenous toe. The patient did have amputation of his toe and cellulitis has improved. At present, he is on oral Bactrim and is doing well. 4. GI bleed. The patient has been stable on Protonix 40 mg every 12 hours intravenously. I will change his Protonix to oral dose of 40 mg twice a day. 5. Hyperphosphatemia. This has corrected. The patient remains on Renvela 1600 mg three times a day with meals. 6. Diabetes. His blood sugars are well-controlled and he remains on insulin.
[2017-02-08] MEDS: PANTOPRAZOLE 40MG TAB (PROTONIX) PO SCH (21:33)
[2017-02-08] MEDS: ATORVASTATIN 20 MG TAB PO SCH (21:33)
[2017-02-08] MEDS: BACTRIM 80MG/400MG TAB PO SCH (21:33)
[2017-02-08 22:00] VITALS: BP 134/78
[2017-02-09 06:00] VITALS: BP 148/82
[2017-02-09] MEDS: PANTOPRAZOLE 40MG TAB (PROTONIX) PO SCH ×2 (06:55→20:37)
[2017-02-09] MEDS: (RENVELA) SEVELAMER **CARBONate** 800 MG TAB PO SCH ×3 (06:55→17:42)
[2017-02-09] MEDS: HumaLOG INSULIN (NovoLOG) PER UNIT SC SCH ×4 (06:56→20:37)
[2017-02-09 08:00] VITALS: BP_SYST 138; BP_SYST 140; BP_SYST 142; BP_DIAS 68; BP_DIAS 70
[2017-02-09 10:16] LABS: MEAN CORPUSCULAR HEMOGLOBIN 29.7 pg (27.0-33.0); MEAN CORPUSCULAR VOLUME 92.8 fl (80.0-96.0); RED CELL DISTRIBUTION WIDTH 17.9 % (11.5-14.5); WHITE BLOOD COUNT 4.8 K/mm3 (4.0-10.0)
[2017-02-09] MEDS ORDERED: HEPARIN 1,000 UNITS/ML 10ML VIAL (FOR RADIOLOGY& DIALYSIS ONLY) IV ONE (10:30)
[2017-02-09 10:35] LABS: ALBUMIN 2.2 GM/DL (3.2-5.2); CALCIUM LEVEL 7.4 MG/DL (8.8-10.2); CREATININE FOR GFR 6.47 MG/DL (0.70-1.30); GLOMERULAR FILTRATION RATE 9.1 (>49); PHOSPHORUS LEVEL 3.5 MG/DL (2.5-4.9); POTASSIUM SERUM 4.1 MEQ/L (3.5-5.1)
[2017-02-09 14:00] VITALS: BP 155/78
[2017-02-09] MEDS: SENNA 8.6 MG TAB (SENOKOT) PO SCH ×2 (14:08→20:37)
[2017-02-09] MEDS: CHECK TO SEE IF PATIENT IS RECEIVING DIALYSIS TODAY AND REFER TO THE VANCOMYCIN ORDER XX SCH (14:09)
--- NOTE | 2017-02-09 16:12 | IPNPDOC ---
Subjective Date Seen The patient was seen on 02/09/17. Subjective Chief Complaint/HPI The patient is a 67-year-old male admitted with a reason for visit of Gi Hemorrhage. Events since last encounter No acute events overnight. Denied chest pain, sob, n/v/abd pain. able to ambulated. Constitutional: Denies: Chills, Fever Skin: Denies: Lesions Pulmonary: Denies: Dyspnea, Cough Cardiovascular: Denies: Chest Pain, Palpitations Gastrointestinal: Denies: Nausea, Vomiting, Abdominal Pain, Diarrhea, Constipation Objective Physical Examination General Exam: Positive: Alert, Cooperative, No Acute Distress Eye Exam: Positive: Conjunctiva & lids normal ENT Exam: Positive: Atraumatic, Mucous membr. moist/pink Neck Exam: Positive: Supple, JVD Chest Exam: Positive: Clear to auscultation, Normal air movement Heart Exam: Positive: Rate Normal, Normal S1, Normal S2, Murmurs Abdomen Exam: Positive: Normal bowel sounds, Soft, Tenderness Extremity Exam: Positive: Other (right le dressing c/d/i) Assessment /Plan Assessment 67-year-old male patient with underlying medical history of end-stage renal disease on hemodialysis Sunday, Sunday, Sunday, type 2 diabetes, non insulin dependent, history of coronary arterial disease, transient ischemic attack (TIA), a/w gastrointestinal (GI) bleed secondary to duodenal ulcer and osteomyelitis of the right third toe. s/p amputation Problems (1) Osteomyelitis Problem Text: s/p amputation, was on vanco and zosyn, switched to Bactrim after d/w Dr Moscoso culture apprecaited wound care teaching (2) Elevated troponin Problem Text: 2/2 to demand ischemia, need outpatient stress with cardiology (3) Abscess, gluteal, right Problem Text: abscess versus hematoma. Dr. Dumont's help is greatly appreciated. He is status post incision and drainage. He has these recurrently over years and he gets them taken care of at urgent care. I suspect he would do better with regular followup with Dr. Dumont in surgical clinic. (4) ESRD (end stage renal disease) Problem Text: c/w Sensipar Renal consulted HD MWF (5) DMII (diabetes mellitus, type 2) Problem Text: consistent carb diet, insulin as per protocol f/u fs (6) HLD (hyperlipidemia) Problem Text: statin (7) HTN (hypertension) Problem Text: initially bp med on hold, restated atenolol (8) Gastrointestinal hemorrhage Status: Acute Problem Text: s/p EGD, duodenal ulcer, PPI bid Dr Green consulted f/u HH stable Plan/VTE VTE Prophylaxis Ordered?: Yes (teds SCQ, no AC given bleed) Disposition Pending wound care teaching, and pt VS, I&O, 24H, Fishbone Vital Signs/I&O Vital Signs Date Time Temp Pulse Resp B/P (MAP) Pulse Ox O2 Delivery O2 Flow Rate FiO2 02/09/17 14:00 98.1 109 19 155/78 (103) 99 Room Air I&O- Last 24 Hours up to 6 AM 02/09/17 05:59 Intake Total 1200 ml Output Total 350 ml Balance 850 ml Laboratory Data 24H LABS Laboratory Tests 2 02/08/17 16:25: Bedside Glucose (Misc Panel) 163H 02/08/17 20:03: Bedside Glucose (Misc Panel) 187H 02/09/17 05:45: Bedside Glucose (Misc Panel) 103 02/09/17 09:15: Blood Urea Nitrogen 52#H, Creatinine 6.47H, Sodium Level 139, Potassium Level 4.1, Chloride Level 105, Carbon Dioxide Level 24, Anion Gap 10, Glomerular Filtration Rate 9.1L, Calcium Level 7.4L, Phosphorus Level 3.5, Albumin 2.2L 02/09/17 14:02: Bedside Glucose (Misc Panel) 145H CBC/BMP Laboratory Tests 02/09/17 09:15 Red Blood Count 2.92 L, Mean Corpuscular Volume 92.8, Mean Corpuscular Hemoglobin 29.7, Mean Corpuscular Hemoglobin Concent 32.0, Red Cell Distribution Width 17.9 H, Anion Gap 10 Microbiology Microbiology 01/31/17 Blood Culture - Final, Complete NO GROWTH AFTER 5 DAYS 02/04/17 Stool Occult Blood (NATHAN) - Final, Complete 02/05/17 Anaerobic Culture - Final, Complete 02/05/17 Gram Stain - Final, Complete 02/05/17 Abscess Culture - Final, Complete 02/01/17 Wound Culture - Final, Complete Morganella Morganii Sp Sibonii Morganella Morganii Ssp Chase Escherichia Coli Staphylococcus Aureus YOBANY LAMBERT MD Feb 09, 2017 16:12
[2017-02-09] MEDS: CINACALCET 30 MG TAB (SENSIPAR) PO SCH (17:41)
--- NOTE | 2017-02-09 17:56 | IPN ---
DATE: 02/09/2017 Mr. Tyson is seen this morning during hemodialysis. He is feeling well and denies any dyspnea, chest pain, nausea, vomiting, fever, or chills. He has been eating well. PHYSICAL EXAMINATION: Temperature 98.3 degrees Fahrenheit, heart rate 100 per minute, respiratory rate 18 per minute, blood pressure 138/68 mm of mercury, and oxygen saturation 100% on room air. Head: Is atraumatic. Ears, nose, and throat are unremarkable. Neck is supple and jugular venous distention (JVD) is only mildly elevated. Heart sounds are tachycardiac but regular. Lungs clear to auscultation. Abdomen soft, obese, and nontender. Bowel sounds are normal. Extremities have no cyanosis or clubbing. Arteriovenous (AV) fistula in right arm is working well. Neurologically, he is awake, alert, and oriented times three. His right foot is wrapped in dressing where he had toe amputation. Today's labs show WBC count 4.8, hemoglobin 8.7, hematocrit 27.1, platelets are 128. Sodium 139 and potassium 4.1, BUN 52, and creatinine 6.7. PROBLEMS: 1. End-stage renal disease. The patient is being dialyzed today. He is tolerating his dialysis treatment very well. We are removing about 3 liters of fluid. His electrolytes are all within normal range. 2. Anemia, stable, and the patient has been receiving Aranesp 300 mcg once a week. No other intervention is indicated at this point. 3. Cellulitis, right foot and leg, with gangrenous toe. The patient had his toe amputated, and cellulitis has improved. He remains on Bactrim one tablet daily. 4. Diabetes. His diabetes is reasonably well controlled on current system insulin regimen. 5. Hyperparathyroidism. The patient continues with Sensipar 30 mg daily and Renvela 1600 mg with each meal. DISPOSITION: From a renal standpoint, the patient can be discharged to home tomorrow, as it is already being planned. He will return for next hemodialysis on Sunday at his regular scheduled time.
[2017-02-09] MEDS: ATORVASTATIN 20 MG TAB PO SCH (20:36)
[2017-02-09] MEDS: BACTRIM 80MG/400MG TAB PO SCH (20:36)
[2017-02-09 22:00] VITALS: BP 136/62
[2017-02-10 06:00] VITALS: BP 145/76
[2017-02-10 06:13] LABS: MEAN CORPUSCULAR HEMOGLOBIN 29.7 pg (27.0-33.0); MEAN CORPUSCULAR HGB CONC 31.9 g/dl (32.0-36.5); MEAN CORPUSCULAR VOLUME 93.1 fl (80.0-96.0); RED CELL DISTRIBUTION WIDTH 18.1 % (11.5-14.5); WHITE BLOOD COUNT 4.8 K/mm3 (4.0-10.0)
[2017-02-10 06:23] LABS: ALBUMIN 2.2 GM/DL (3.2-5.2); CALCIUM LEVEL 7.9 MG/DL (8.8-10.2); CREATININE FOR GFR 4.84 MG/DL (0.70-1.30); GLOMERULAR FILTRATION RATE 12.8 (>49); PHOSPHORUS LEVEL 3.3 MG/DL (2.5-4.9); POTASSIUM SERUM 3.9 MEQ/L (3.5-5.1)
[2017-02-10] MEDS: (RENVELA) SEVELAMER **CARBONate** 800 MG TAB PO SCH ×3 (08:08→17:15)
[2017-02-10] MEDS: HumaLOG INSULIN (NovoLOG) PER UNIT SC SCH ×3 (08:08→17:15)
[2017-02-10 08:09] VITALS: BP 145/76
[2017-02-10] MEDS: SENNA 8.6 MG TAB (SENOKOT) PO SCH (08:09)
[2017-02-10] MEDS: PANTOPRAZOLE 40MG TAB (PROTONIX) PO SCH (08:09)
[2017-02-10] MEDS ORDERED: ATENOLOL 25 MG TAB PO SCH (09:00)
[2017-02-10] MEDS ORDERED: SENN1TAB4 PO (11:32)
[2017-02-10] MEDS ORDERED: PANT40TA2 PO (11:32)
[2017-02-10] MEDS ORDERED: SULF1TAB72 PO (11:32)
[2017-02-10 14:00] VITALS: BP 121/65
--- NOTE | 2017-02-10 15:15 | IPN ---
DATE: 02/10/2017 SUBJECTIVE: Patient was seen and examined at the bedside today morning. Patient was sitting in the bed. He is comfortable. He tolerated his hemodialysis procedure well yesterday. He is telling me that he is ready to go home today. REVIEW OF SYSTEMS: Patient denies any fevers, chills, rigors, headache, nausea, vomiting, chest pain, shortness of breath. Patient does report mild bleeding from the right thigh hematoma site. Rest of the review of systems is negative. OBJECTIVE: Vital signs: Temperature is 98.7 degrees Fahrenheit, blood pressure is 145/76, pulse is 101, respiratory rate of 17, saturating 97% on room air. Intake and output: Urine output is not recorded. Ultrafiltration with hemodialysis was 3 liters yesterday. Weight in the bed scale was 112.2 kg yesterday. PHYSICAL EXAMINATION: GENERAL: Patient is awake, alert, oriented times three, sitting in the bed. No apparent distress. HEAD AND NECK: Extraocular muscles intact. Pupils equally round and reactive to light. Neck is supple. There is no jugular venous distention (JVD). CARDIOVASCULAR: S1, S2, regular rate. No murmur, rub, or gallop. RESPIRATORY: Chest is clear to auscultation bilaterally. Bilateral equal air entry. No rales or rhonchi. ABDOMEN: Abdomen is soft. Positive bowel sounds. Nontender. No ascites. No organomegaly. EXTREMITIES: Patient has a right forearm arteriovenous (AV) fistula with positive thrill and bruit. He has a dressing on the right thigh hematoma site, and patient has a dressing on the right foot from the 3rd toe amputation site. CENTRAL NERVOUS SYSTEM: No focal neurological deficit. Power is 5/5 in all extremities. LABORATORY REVIEW: CBC showed a WBC of 4.8, hemoglobin 8.8, platelets are 100. BMP showed sodium 141, potassium 3.9, chloride 100, bicarbonate 27, BUN 36, creatinine is 4.8. CURRENT MEDICATIONS: Patient's current inpatient medications were all reviewed by me. He has been started on atenolol 25 mg on Sunday, Sunday, , and Sunday. There is no other change in the medications today. ASSESSMENT: A 67-year-old male with past medical history of end-stage renal disease, on hemodialysis, diabetes mellitus, type 2, admitted at this time because of symptomatic anemia secondary to gastrointestinal (GI) bleed and right toe diabetic foot infection. PLAN: 1. End-stage renal disease, on hemodialysis. Patient's regular dialysis days are Sunday, Sunday, Sunday. He was dialyzed yesterday according to his schedule. No urgent need of dialysis today. 2. Right 3rd toe diabetic foot infection. Patient got the amputation done by podiatry. He is currently getting dressings. Patient is currently on Bactrim for infection. 3. Acute blood loss anemia secondary to GI bleed. GI bleed has improved. Hemoglobin is stable at around 8.8. Continue current dose of Aranesp with hemodialysis. DISCHARGE PLANNING: It is okay to discharge the patient from a nephrology standpoint. Next regular dialysis will be on Sunday. Plan of care was discussed with the hospitalist, Dr. Mila Foster.
[2017-02-10] MEDS: CHECK TO SEE IF PATIENT IS RECEIVING DIALYSIS TODAY AND REFER TO THE VANCOMYCIN ORDER XX SCH (16:00)
[2017-02-10] MEDS: CINACALCET 30 MG TAB (SENSIPAR) PO SCH (17:15)
[2017-02-10] MEDS: BACTRIM 80MG/400MG TAB PO SCH (21:02)
--- NOTE | 2017-02-11 01:40 | DSES ---
DATE OF ADMISSION: 02/01/2017 DATE OF DISCHARGE: 02/10/2017 PRIMARY CARE PROVIDER/PESTICIDE APPLICATOR: Dr. Mayorga. INVENTORY ASSISTANT: Dr. Green. SENIOR APPLICATION SOFTWARE ENGINEER: Dr. King covered by Dr. Moscoso. FINAL DIAGNOSES: 1. Osteomyelitis. 2. Elevated troponin. 3. Right gluteal abscess. 4. End-stage renal disease. 5. Type 2 diabetes. 6. Dyslipidemia. 7. Hypertension. 8. Gastrointestinal (GI) bleed secondary to duodenal ulcer. HISTORY OF PRESENT ILLNESS: This is a 67-year-old male patient with underlying medical history of end-stage renal disease on hemodialysis Sunday, Sunday, Sunday, coronary arterial disease with coronary artery bypass graft (CABG), diabetes type 2, recently being treated for lower extremity cellulitis with Bactrim. Patient has, for the past several days, reported lightheadedness and weakness. Subsequently, went to dialysis. Following dialysis, patient reported worsening lightheadedness and was brought to the emergency room, found to be anemic. Fecal occult positive with melanotic stool. Patient, on questioning, stated that has been making 2-3 bowel movements a day for the past week or so with melanotic stool. Baseline making 1-2 bowel movements a day. Also found to be hypotensive. Transfused packed red blood cells (PRBC). Orthostatics not done. Denies any headache, chest pain, pressure or discomfort. HOSPITAL COURSE: Patient was admitted to the hospital, made nothing by mouth. PRBC was transfused. Hemoglobin and hematocrit was monitored. Dr. Green was consulted. Status post esophagogastroduodenoscopy (EGD) found to have duodenal ulcer which was clipped. Furthermore, patient was found to have a right foot necrotic lesion found to be osteomyelitis. Podiatry has been consulted. Status post amputation. Broad-spectrum antibiotics were given. Cultures were sent. Surgery, Dr. Dumont has also been consulted for buttocks abscess, which was drained. Dialysis was continued. Patient tolerated treatment. Tolerating oral, diet was advanced. Currently comfortable in no acute distress. Wound care teaching was done. Physical therapy was done. Antibiotics were switched to oral. Patient is comfortable, tolerating oral. Ready for discharge for further care as outpatient. PHYSICAL EXAMINATION: VITAL SIGNS: Temperature 98.7, pulse 101, respirations 17, blood pressure 145/76, pulse oximetry 97% on room air. GENERAL: Patient alert and oriented times three in no acute distress. Obese. PULMONARY: Bilaterally clear to auscultation. CARDIAC: Regular rate and rhythm. Normal S1, S2. ABDOMEN: Soft, nontender, nondistended. EXTREMITIES: No edema bilateral lower extremities with surgical wounds on the right lower extremity, clean, dry, intact. LABORATORY: WBC 4.8, hemoglobin and hematocrit 8.8/27.6, platelets 100. Chemistry: Sodium 141, potassium 3.9, chloride 104, bicarbonate 29, BUN 36, creatinine 4.84. DISCHARGE MEDICATIONS: - Protonix 40 mg by mouth daily - senna-S two tablets by mouth twice a day - Bactrim 400/80 mg combination by mouth daily for 10 more days - atenolol 25 mg by mouth four times a week - Lipitor 20 mg by mouth nightly - Sensipar 30 mg by mouth every evening - Benadryl 25 mg by mouth nightly as needed for sleep - vitamin D 50,000 units by mouth once a week - fenofibrate 160 mg by mouth nightly - glimepiride 1 mg by mouth daily - lutein 40 mg by mouth daily - Adela-Liza one tablet by mouth daily - Renvela 1600 mg by mouth with meals - Silvadene for wound Patient's aspirin is temporarily on hold, 81 mg. DISCHARGE INSTRUCTIONS: Patient is instructed to followup with nephrology for further dialysis. Followup with primary care provider. Followup with podiatry in 1 week. Home health care referral was made. Followup with Dr. Dumont in 1-2 months for buttocks abscess if it is necessary to be drained again. Return to the hospital if symptoms worsen.
== END 2017-02-10 21:07 | disposition home health service (06) | DRG 981 ==
LOC: M ED 02-01 00:41 → M ED INP 02-01 02:31 → M ICU 02-01 03:39 → M ED INP 02-01 14:21 → M ICU 02-01 14:24 → M MSPAV 02-03 09:44
PROVIDERS: ADMIT Hospitalist; ATTEND Hospitalist
PROC: 0DB98ZX Excision of Duodenum, Via Natural or Artificial Opening Endoscopic, Diagnostic (ICD-10-PCS; 2017-02-01)
PROC: 30233N1 Transfusion of Nonautologous Red Blood Cells into Peripheral Vein, Percutaneous Approach (ICD-10-PCS; 2017-02-01)
PROC: 0J990ZZ Drainage of Buttock Subcutaneous Tissue and Fascia, Open Approach (ICD-10-PCS; 2017-02-02)
PROC: 0J9L0ZZ Drainage of Right Upper Leg Subcutaneous Tissue and Fascia, Open Approach (ICD-10-PCS; 2017-02-02)
PROC: 5A1D00Z (ICD-10-PCS; 2017-02-02)
PROC: 0Y6T0Z0 Detachment at Right 3rd Toe, Complete, Open Approach (ICD-10-PCS; principal; 2017-02-05 16:30)
DX: K26.9 Duodenal ulcer, unspecified as acute or chronic, without hemorrhage or perforation (principal); N18.6 End stage renal disease; D62 Acute posthemorrhagic anemia; M86.171 Other acute osteomyelitis, right ankle and foot; E46 Unspecified protein-calorie malnutrition; L02.31 Cutaneous abscess of buttock; N25.81 Secondary hyperparathyroidism of renal origin; I12.0 Hypertensive chronic kidney disease with stage 5 chronic kidney disease or end stage renal disease; I95.9 Hypotension, unspecified; M79.81 Nontraumatic hematoma of soft tissue; I25.10 Atherosclerotic heart disease of native coronary artery without angina pectoris; E83.39 Other disorders of phosphorus metabolism; E11.621 Type 2 diabetes mellitus with foot ulcer; E11.40 Type 2 diabetes mellitus with diabetic neuropathy, unspecified; E78.5 Hyperlipidemia, unspecified; Z99.2 Dependence on renal dialysis; Z95.1 Presence of aortocoronary bypass graft; Z79.84 Long term (current) use of oral hypoglycemic drugs; Z79.899 Other long term (current) drug therapy; Z79.82 Long term (current) use of aspirin; Z86.73 Personal history of transient ischemic attack (TIA), and cerebral infarction without residual deficits; Z80.9 Family history of malignant neoplasm, unspecified; B96.20 Unspecified Escherichia coli [E. coli] as the cause of diseases classified elsewhere; B95.61 Methicillin susceptible Staphylococcus aureus infection as the cause of diseases classified elsewhere; B96.4 Proteus (mirabilis) (morganii) as the cause of diseases classified elsewhere; K92.2 Gastrointestinal hemorrhage, unspecified; L97.519 Non-pressure chronic ulcer of other part of right foot with unspecified severity

== ENCOUNTER → 2017-06-26 | Outpatient (CLI) | payer MEDICARE, BC, OTHER ==
[~2017-06-26] MED LIST: ASPI81TA85 PO; ASPI81TAEC PO; ATEN25TA PO; ATOR1TAB19 PO; ATOR1TAB21 PO; BACT800T5 PO; CINA30TA PO; DIPH25CA PO; FENO160T10 PO; GLIM1TAB PO; GLIP5TAB8 PO; LUTE40CA2 PO; PANT40TA2 PO; RENATAB5 PO; RENV2TAB PO; SENN18TA PO; SILV-4 TOP; SULF1TAB72 PO; VITA1CAP40 PO
== END ==
LOC: M RROUT 11:09
PROVIDERS: ATTEND Internal Medicine Nephrology
DX: D62 Acute posthemorrhagic anemia (principal)
CPT/HCPCS: 36415; 36430; 86850; 86900; 86901; 86920; P9016

== ENCOUNTER → 2017-07-05 | Outpatient (REF) | payer MEDICARE, BC, OTHER ==
[~2017-07-05] MED LIST changes: +CALC1CAP PO
== END ==
LOC: M LAB REF 10:21
PROVIDERS: ATTEND Surgery
DX: L02.31 Cutaneous abscess of buttock (principal); L02.215 Cutaneous abscess of perineum

== ENCOUNTER → 2017-07-17 | Outpatient (CLI) | payer MEDICARE, BC, OTHER | LOC: M OROP 14:55 | PROVIDERS: ATTEND Internal Medicine Nephrology | DX: D62 Acute posthemorrhagic anemia (principal) | CPT/HCPCS: 36415; 86850; 86900; 86901; 86920; P9016 ==

== ENCOUNTER 2017-07-18 09:08 | Day surgery (SDC) | payer MEDICARE, BC, OTHER ==
[~2017-07-18] VITALS: Ht 175.3 cm; Wt 111.1 kg
[~2017-07-18 09:08] MED LIST changes: +ACETAMINOPHEN 325 MG TAB PO PRN; +CYCLOPENTOLATE 2% OPHTH SOLN 2ML BTL OS ONE; +LIDOCAINE 3.5 % 1ML OPHTH TOPICAL GEL OU ONE; +OFLOXACIN 0.3 % (OCUFLOX) OPTH SOL 5ML OS ONE; +PHENYLEPHRINE 2.5% OPHTH SOL 2ML OS ONE; +PROPARACAINE 0.5% OPHTH SOL 15ML OS PRN; +TROPICAMIDE 1% OPHTH SOLN 2ML OS ONE
[2017-07-18] MEDS ORDERED: BALANCED SALT IRRIGATION SOL 500ML GLASS BOTTLE (FOR OR EYE COMPOUND) As Ordered ONE (11:46)
[2017-07-18] MEDS ORDERED: CEFUROXIME 1MG/0.1ML INTRACAMERAL INJ As Ordered ONE (11:46)
[2017-07-18] MEDS ORDERED: LIDOCAINE 1% SDV 5 ML VIAL As Ordered ONE (11:46)
[2017-07-18] MEDS ORDERED: ACETYLCHOLINE OPHTH SOLN 1% 2ML (MIOCHOL-E) As Ordered ONE (11:46)
[2017-07-18] MEDS ORDERED: POVIDONE-IODINE 5% OPHTH PREP SOL 30ML As Ordered ONE (11:46)
[2017-07-18] MEDS ORDERED: HEALON DUET (HEALON 10MG/ML 0.55ML & HEALON ENDOCOAT 30MG/ML 0.85ML) As Ordered ONE (11:46)
[2017-07-18] MEDS ORDERED: fentaNYL 100 MCG/2 ML INJECTION (J3010) As Ordered ONE (12:12)
[2017-07-18] MEDS ORDERED: MIDAZOLAM INJ 2 MG/2 ML VIAL (J2250) As Ordered ONE (12:12)
[2017-07-18] MEDS ORDERED: KETOROLAC 0.5% OPHTH SOLN OS ONE (12:45)
[2017-07-18] MEDS ORDERED: AcetaZOLAMIDE 500 MG ER CAP PO ONE (12:45)
[2017-07-18] MEDS ORDERED: TRIMETHOBENZAMIDE 300 MG CAP PO PRN (12:45)
[2017-07-18 13:25] VITALS: BP 149/79
--- NOTE | 2017-07-18 14:21 | RO ---
DATE OF PROCEDURE: 07/18/2017 PREPROCEDURE DIAGNOSIS: Age related nuclear cataract left eye. POSTPROCEDURE DIAGNOSIS: Age related nuclear cataract left eye. PROCEDURE: Phacoemulsification and posterior chamber intraocular lens implantation. The lens used was AU00T0, 24.5 diopter. SURGEON: Karen Rinaldi MD ICHTHYOLOGIST: ANESTHESIA: Topical with sedation. DESCRIPTION OF PROCEDURE: The patient was prepped and draped in the usual fashion. A lid speculum was placed between the lids. The eye was fixated. A stab incision was made to the anterior chamber, and 1% non-preserved lidocaine was instilled. Then, viscoelastic was instilled. The eye was re-fixated. A 2.75 mm sapphire keratome was used to make a clear corneal temporal limbal incision. Capsulorrhexis was begun with a 30-gauge bent needle and then carried out in a circular fashion with capsulorrhexis forceps. The lens was hydrodissected, and then the phacoemulsification unit was used to make a groove in the nucleus in two meridians. The nucleus was then cracked into four quadrants. Each quadrant was removed with the phacoemulsification unit. Any remaining cortex was removed with the irrigation and aspiration (I and A) unit. Capsular bag was refilled with viscoelastic. A posterior chamber intraocular lens was placed in the capsular bag without difficulty. Any remaining viscoelastic was removed with the I and A unit. The wound was hydrated, and Miochol and cefuroxime were instilled into the anterior chamber. The patient tolerated the procedure well and went to the recovery room in stable condition.
== END 2017-07-18 13:50 | disposition home or self-care (01) ==
LOC: M SDC 09:08
PROVIDERS: ATTEND Ophthalmology
DX: H25.12 Age-related nuclear cataract, left eye (principal); I25.10 Atherosclerotic heart disease of native coronary artery without angina pectoris; E11.9 Type 2 diabetes mellitus without complications; I10 Essential (primary) hypertension; I25.2 Old myocardial infarction; Z79.899 Other long term (current) drug therapy; K21.9 Gastro-esophageal reflux disease without esophagitis; Z86.73 Personal history of transient ischemic attack (TIA), and cerebral infarction without residual deficits; N18.9 Chronic kidney disease, unspecified; E78.5 Hyperlipidemia, unspecified
CPT/HCPCS: 36415; 66984; 84132; J2250; J3010; V2632

== ENCOUNTER → 2017-07-31 | Outpatient (CLI) | payer MEDICARE, BC, OTHER ==
[~2017-07-31] MED LIST changes: -ACETAMINOPHEN 325 MG TAB PO PRN; -CYCLOPENTOLATE 2% OPHTH SOLN 2ML BTL OS ONE; +GASTROGRAFIN SOLUTION 30ML (Q9963) As Ordered ONE; +ISOVUE-370 76% 100ML VIAL (Q9967) As Ordered ONE; -LIDOCAINE 3.5 % 1ML OPHTH TOPICAL GEL OU ONE; -OFLOXACIN 0.3 % (OCUFLOX) OPTH SOL 5ML OS ONE; -PHENYLEPHRINE 2.5% OPHTH SOL 2ML OS ONE; -PROPARACAINE 0.5% OPHTH SOL 15ML OS PRN; -TROPICAMIDE 1% OPHTH SOLN 2ML OS ONE
--- NOTE | 2017-07-31 15:45 | REP ---
CT of the abdomen and pelvis with IV contrast, without bowel contrast: There are no comparisons. There is a focal zone of skin thickening medially superiorly in the right gluteal area measuring 13 cm craniocaudad by 10 cm transversely by 1 cm in depth. There are several tiny air or gas bubbles within this focal zone of skin thickening. There is no edema or phlegmon within the subcutaneous fat deep to this area of skin thickening. The process appears to be an confined to the skin and immediate subcutaneous zone. It extends to the midline of the right superior gluteal area. No fistulous tracts are identified. The visualized lung bruno are unremarkable. The hepatic parenchyma is unremarkable. There is a faintly visible gallbladder calculus. The gallbladder is otherwise unremarkable. The pancreas and spleen are unremarkable. The adrenals are unremarkable. The right and left kidneys are unremarkable except for diffuse renal cortical atrophy bilaterally. The abdominal aorta is unremarkable. There is no bowel distension. The mesentery is unremarkable. Pelvis: There are occasional sigmoid diverticula. There is no diverticulosis. The bladder is unremarkable. There is no ascites or adenopathy. Impression: Focal skin thickening in the medial superior right gluteal area. There are a few small air or gas bubbles within the area of skin thickening. No fistulous tracts. There is no phlegmon in the adjacent subcutaneous fat. Signed by Vamshi Armstrong MD 07/31/2017 03:36 P
== END ==
LOC: M RAD 10:48
PROVIDERS: ATTEND Surgery
DX: L02.31 Cutaneous abscess of buttock (principal)
CPT/HCPCS: 74177; Q9963; Q9967

== ENCOUNTER → 2017-08-10 | Outpatient (CLI) | payer MEDICARE, BC, OTHER ==
[~2017-08-10] MED LIST changes: -GASTROGRAFIN SOLUTION 30ML (Q9963) As Ordered ONE; -ISOVUE-370 76% 100ML VIAL (Q9967) As Ordered ONE
[2017-08-10 11:24] LABS: MEAN CORPUSCULAR HEMOGLOBIN 28.3 pg (27.0-33.0); MEAN CORPUSCULAR HGB CONC 31.2 g/dl (32.0-36.5); MEAN CORPUSCULAR VOLUME 90.9 fl (80.0-96.0); PLATELET COUNT, AUTOMATED 116 10^3/uL (150-450); RED CELL DISTRIBUTION WIDTH 17.2 % (11.5-14.5); WHITE BLOOD COUNT 4.9 10^3/uL (4.0-10.0)
[2017-08-10 11:36] LABS: INR 1.15
[2017-08-10 12:23] LABS: ALBUMIN 2.7 GM/DL (3.2-5.2); ALBUMIN/GLOBULIN RATIO 0.57 (1.00-1.93); BILIRUBIN,TOTAL 0.5 MG/DL (0.2-1.0); CALCIUM LEVEL 7.7 MG/DL (8.8-10.2); CREATININE FOR GFR 6.68 MG/DL (0.70-1.30); GLOMERULAR FILTRATION RATE 8.8 (>49); POTASSIUM SERUM 3.9 MEQ/L (3.5-5.1); TOTAL PROTEIN 7.4 GM/DL (6.4-8.2)
== END ==
LOC: M LAB 10:53
PROVIDERS: ATTEND Surgery
DX: L02.31 Cutaneous abscess of buttock (principal)

== ENCOUNTER → 2017-08-30 | Outpatient (REF) | payer MEDICARE, OTHER | LOC: M LAB REF 10:20 | DX: L97.522 Non-pressure chronic ulcer of other part of left foot with fat layer exposed (principal); R89.8 Other abnormal findings in specimens from other organs, systems and tissues (principal); E11.621 Type 2 diabetes mellitus with foot ulcer; M79.89 Other specified soft tissue disorders | CPT/HCPCS: 88304 ==

== ENCOUNTER 2017-09-12 08:32 | Day surgery (SDC) | payer MEDICARE, BC, OTHER ==
[~2017-09-12 08:32] MED LIST changes: +ACETAMINOPHEN 325 MG TAB PO; -ASPI81TA85 PO; -ASPI81TAEC PO; -ATEN25TA PO; -ATOR1TAB19 PO; -ATOR1TAB21 PO; -BACT800T5 PO; -CALC1CAP PO; -CINA30TA PO; -DIPH25CA PO; -FENO160T10 PO; -GLIM1TAB PO; -GLIP5TAB8 PO; -LUTE40CA2 PO; +MIDAZOLAM INJ 2 MG/2 ML VIAL (J2250) As Ordered; -PANT40TA2 PO; +PHENYLEPHRINE HCL 10 % OPHTH. SOL 5ML OD; +PROPARACAINE 0.5% OPHTH SOL 15ML OD; -RENATAB5 PO; -RENV2TAB PO; -SENN18TA PO; -SILV-4 TOP; -SULF1TAB72 PO; -VITA1CAP40 PO; +fentaNYL 100 MCG/2 ML INJECTION (J3010) As Ordered
[2017-09-12] MEDS ORDERED: TRIMETHOBENZAMIDE 300 MG CAP PO (08:45)
[2017-09-12 09:24] LABS: BEDSIDE GLUCOSE 129 MG/DL (80-115)
[2017-09-12] MEDS: LIDOCAINE 3.5 % 1ML OPHTH TOPICAL GEL OU (09:30)
[2017-09-12] MEDS: CYCLOPENTOLATE 2% OPHTH SOLN 2ML BTL OD (09:31)
[2017-09-12] MEDS: TROPICAMIDE 1% OPHTH SOLN 2ML OD (09:31)
[2017-09-12] MEDS: PHENYLEPHRINE 2.5% OPHTH SOL 2ML OD (09:31)
[2017-09-12] MEDS: OFLOXACIN 0.3 % (OCUFLOX) OPTH SOL 5ML OD (09:31)
[2017-09-12] MEDS: LIDOCAINE 1% SDV 5 ML VIAL As Ordered (10:05)
[2017-09-12] MEDS: POVIDONE-IODINE 5% OPHTH PREP SOL 30ML As Ordered (10:05)
[2017-09-12] MEDS: CEFUROXIME 1MG/0.1ML INTRACAMERAL INJ As Ordered (10:12)
[2017-09-12] MEDS: ACETYLCHOLINE OPHTH SOLN 1% 2ML (MIOCHOL-E) As Ordered (10:12)
[2017-09-12] MEDS: HEALON DUET (HEALON 10MG/ML 0.55ML & HEALON ENDOCOAT 30MG/ML 0.85ML) As Ordered (10:12)
[2017-09-12] MEDS: BALANCED SALT IRRIGATION SOLUTION 500ML BAG (FOR OR EYE MACHINE) As Ordered (10:12)
[2017-09-12] MEDS: AcetaZOLAMIDE 500 MG ER CAP PO (11:15)
[2017-09-12] MEDS: KETOROLAC 0.5% OPHTH SOLN OD (11:15)
== END 2017-09-12 12:00 | disposition home or self-care (01) ==
LOC: M SDC 08:32
DX: H25.11 Age-related nuclear cataract, right eye (principal); I25.10 Atherosclerotic heart disease of native coronary artery without angina pectoris; I25.2 Old myocardial infarction; I12.0 Hypertensive chronic kidney disease with stage 5 chronic kidney disease or end stage renal disease; E78.00 Pure hypercholesterolemia, unspecified; E10.9 Type 1 diabetes mellitus without complications; E03.9 Hypothyroidism, unspecified; K21.9 Gastro-esophageal reflux disease without esophagitis; D64.9 Anemia, unspecified; R29.818 Other symptoms and signs involving the nervous system; R06.83 Snoring; N18.6 End stage renal disease; G47.33 Obstructive sleep apnea (adult) (pediatric); Z88.4 Allergy status to anesthetic agent; Z79.899 Other long term (current) drug therapy; Z86.73 Personal history of transient ischemic attack (TIA), and cerebral infarction without residual deficits
CPT/HCPCS: 66984

== ENCOUNTER 2017-09-20 15:04 | Outpatient (CLI) | payer MEDICARE, BC, OTHER ==
[2017-09-20 17:02] LABS: IMMEDIATE SPIN CROSSMATCH 1 2
== END 2017-09-20 23:02 | disposition home or self-care (01) ==
LOC: M OPCLI4PV 23:02 → M MSPAV 15:11
DX: D64.89 Other specified anemias (principal)
CPT/HCPCS: 36430

== ENCOUNTER → 2017-10-04 | Outpatient (REF) | payer MEDICARE, OTHER | LOC: M LAB REF 10-05 15:22 | DX: L97.522 Non-pressure chronic ulcer of other part of left foot with fat layer exposed (principal); E11.621 Type 2 diabetes mellitus with foot ulcer | CPT/HCPCS: 87077 ==

== ENCOUNTER 2017-10-23 09:59 | Day surgery (SDC) | payer MEDICARE, BC, OTHER ==
[2017-10-23] MEDS ORDERED: NS 1,000 ML IV (10:30)
[2017-10-23 10:46] LABS: BASO % 0.4 % (0.0-1.0); EOS # 0.1 10^3/uL (0.0-0.50); HEMATOCRIT 26.7 % (42.0-52.0); HEMOGLOBIN 8.1 g/dl (14.0-18.0); IMMATURE GRANULOCYTE % 0.4 % (0-3.0); LYMPH # 0.8 10^3/uL (1.5-4.5); LYMPH % 17.1 % (24.0-44.0); MEAN CORPUSCULAR HEMOGLOBIN 27.3 pg (27.0-33.0); MEAN CORPUSCULAR HGB CONC 30.3 g/dl (32.0-36.5); MEAN CORPUSCULAR VOLUME 89.9 fl (80.0-96.0); MONO # 0.4 10^3/uL (0.0-0.8); MONO % 7.6 % (0.0-5.0); NEUTROPHILS # 3.3 10^3/uL (1.8-7.7); NEUTROPHILS % 71.5 % (36.0-66.0); PLATELET COUNT, AUTOMATED 141 10^3/uL (150-450); RED BLOOD COUNT 2.97 10^6/uL (4.30-6.10); RED CELL DISTRIBUTION WIDTH 17.8 % (11.5-14.5); WHITE BLOOD COUNT 4.6 10^3/uL (4.0-10.0)
[2017-10-23 11:07] LABS: ALBUMIN 2.7 GM/DL (3.2-5.2); ANION GAP 11 MEQ/L (8-16); ANION GAP 12 MEQ/L (8-16); BLOOD UREA NITROGEN 44 MG/DL (7-18); BLOOD UREA NITROGEN 46 MG/DL (7-18); CARBON DIOXIDE LEVEL 28 MEQ/L (21-32); CARBON DIOXIDE LEVEL 29 MEQ/L (21-32); CHLORIDE LEVEL 97 MEQ/L (98-107); CREATININE FOR GFR 6.51 MG/DL (0.70-1.30); CREATININE FOR GFR 6.55 MG/DL (0.70-1.30); GLOMERULAR FILTRATION RATE 9.1 (>49); GLUCOSE, FASTING 122 MG/DL (70-100); PHOSPHORUS LEVEL 3.3 MG/DL (2.5-4.9); POTASSIUM SERUM 3.2 MEQ/L (3.5-5.1); SODIUM LEVEL 137 MEQ/L (136-145)
[2017-10-23] MEDS ORDERED: PROPOFOL 200 MG/20 ML VIAL As Ordered ×2 (11:20→11:52)
[2017-10-23] MEDS ORDERED: LIDOCAINE 2% INJ 100 MG/5 ML SDV (FOR ANES.) As Ordered (11:23)
[2017-10-23 11:46] LABS: FOLATE 19.3 NG/ML (>5.4); VITAMIN B12 LEVEL 823 PG/ML (247-911)
[2017-10-27 00:06] LABS: ANTI-PARIETAL CELL ANTIBODY 8.5 Units (0.0-20.0)
[2017-10-27 00:06] LABS: IgA SERUM (part of Subclasses) 1288 mg/dL (61-437); TISSUE TRANSGLUTAMINASE IgA <2 U/mL (0-3)
== END 2017-10-23 14:20 | disposition home or self-care (01) ==
LOC: M OPP 09:59
DX: D50.9 Iron deficiency anemia, unspecified (principal); D12.2 Benign neoplasm of ascending colon; D12.3 Benign neoplasm of transverse colon; K57.30 Diverticulosis of large intestine without perforation or abscess without bleeding; K64.8 Other hemorrhoids; I86.8 Varicose veins of other specified sites; I85.00 Esophageal varices without bleeding; K31.7 Polyp of stomach and duodenum; K29.70 Gastritis, unspecified, without bleeding; I25.10 Atherosclerotic heart disease of native coronary artery without angina pectoris; Z95.1 Presence of aortocoronary bypass graft; I25.2 Old myocardial infarction; I12.9 Hypertensive chronic kidney disease with stage 1 through stage 4 chronic kidney disease, or unspecified chronic kidney disease; E78.5 Hyperlipidemia, unspecified; E11.9 Type 2 diabetes mellitus without complications; E05.90 Thyrotoxicosis, unspecified without thyrotoxic crisis or storm; Z87.11 Personal history of peptic ulcer disease; K21.9 Gastro-esophageal reflux disease without esophagitis; R12 Heartburn; I63.9 Cerebral infarction, unspecified; R06.83 Snoring; N18.4 Chronic kidney disease, stage 4 (severe); Z99.2 Dependence on renal dialysis; Z88.8 Allergy status to other drugs, medicaments and biological substances; Z79.899 Other long term (current) drug therapy
CPT/HCPCS: 45385

== ENCOUNTER 2017-11-12 08:13 | Outpatient (CLI) | payer MEDICARE, BC, OTHER ==
[2017-11-12] MEDS: diphenhydrAMINE 25 MG CAP PO (10:08)
[2017-11-12 13:06] LABS: IMMEDIATE SPIN CROSSMATCH 1 2
== END 2017-11-12 15:40 | disposition home or self-care (01) ==
LOC: M INFU 08:13
DX: D50.0 Iron deficiency anemia secondary to blood loss (chronic) (principal); I12.0 Hypertensive chronic kidney disease with stage 5 chronic kidney disease or end stage renal disease; E78.00 Pure hypercholesterolemia, unspecified; E11.9 Type 2 diabetes mellitus without complications; I25.810 Atherosclerosis of coronary artery bypass graft(s) without angina pectoris; N18.6 End stage renal disease; Z86.73 Personal history of transient ischemic attack (TIA), and cerebral infarction without residual deficits; Z79.84 Long term (current) use of oral hypoglycemic drugs; Z79.899 Other long term (current) drug therapy
CPT/HCPCS: 36430

== ENCOUNTER → 2017-11-29 | Outpatient (CLI) | payer MEDICARE, BC, OTHER ==
[~2017-11-29] MED LIST changes: -ACETAMINOPHEN 325 MG TAB PO; +ISOVUE-300 61% 50ML VIAL (Q9967) As Ordered; -PHENYLEPHRINE HCL 10 % OPHTH. SOL 5ML OD; -PROPARACAINE 0.5% OPHTH SOL 15ML OD
== END | disposition home or self-care (01) ==
LOC: M IRPRO 07:37
DX: T82.838A Hemorrhage due to vascular prosthetic devices, implants and grafts, initial encounter (principal); N18.6 End stage renal disease; Z99.2 Dependence on renal dialysis
CPT/HCPCS: 36901

== ENCOUNTER → 2017-12-13 | Outpatient (CLI) | payer MEDICARE, BC, OTHER ==
[2017-12-13 12:24] LABS: FERRITIN 633 NG/ML (26-388); IRON (FE) 42 UG/DL (65-175); PERCENT SATURATION 21.2 % (19.7-50.0); TOTAL IRON BINDING CAPACITY 198 UG/DL (250-450)
[2017-12-14 11:09] LABS: ALPHA FETOPROTEIN TUMOR QUANT 2.2 NG/ML (<8.1)
[2017-12-14 11:15] LABS: HEPATITIS B SURFACE ANTIBODY POSITIVE (POSITIVE)
[2017-12-14 11:26] LABS: HEPATITIS B SURFACE ANTIGEN NEGATIVE (NEGATIVE)
[2017-12-20 00:07] LABS: ALPHA 2-MACROGLOBULINS,QN 254 mg/dL (110-276); ALT (SGPT) P5P 32 IU/L (0-55); APOLIPOPROTEIN A-1 121 mg/dL (101-178); AST (SGOT) P5P 42 IU/L (0-40); BILIRUBIN, TOTAL 0.3 mg/dL (0.0-1.2); CHOLESTEROL TOTAL 141 mg/dL (100-199); GGT 227 IU/L (0-65); GLUCOSE, SERUM 224 mg/dL (65-99); HAPTOGLOBIN 146 mg/dL (34-200); HEIGHT 69 in (.); HEPATITIS A IgG TOTAL Positive (Negative); LIVER-KIDNEY MICROSOMAL ABY 1.1 Units (0.0-20.0); TRIGLYCERIDES 203 mg/dL (0-149)
[2017-12-20 00:07] LABS: ANTI-SMOOTH MUSCLE ANTIBODY 31 Units (0-19)
== END ==
LOC: M RAD 08:11
DX: D64.9 Anemia, unspecified (principal); K80.20 Calculus of gallbladder without cholecystitis without obstruction; L97.522 Non-pressure chronic ulcer of other part of left foot with fat layer exposed; R16.2 Hepatomegaly with splenomegaly, not elsewhere classified; S31.829D Unspecified open wound of left buttock, subsequent encounter; I87.8 Other specified disorders of veins; S31.819D Unspecified open wound of right buttock, subsequent encounter; S71.001D Unspecified open wound, right hip, subsequent encounter; R18.8 Other ascites; E66.01 Morbid (severe) obesity due to excess calories; S31.30XD Unspecified open wound of scrotum and testes, subsequent encounter; X58.XXXD Exposure to other specified factors, subsequent encounter; L02.31 Cutaneous abscess of buttock; L02.415 Cutaneous abscess of right lower limb
CPT/HCPCS: 76700

== ENCOUNTER → 2017-12-14 | Outpatient (REF) | payer MEDICARE, BC, OTHER | LOC: M LAB REF 14:08 | DX: S31.819D Unspecified open wound of right buttock, subsequent encounter (principal); L02.31 Cutaneous abscess of buttock; W18.30XD Fall on same level, unspecified, subsequent encounter; Y92.009 Unspecified place in unspecified non-institutional (private) residence as the place of occurrence of the external cause | CPT/HCPCS: 87186 ==

== ENCOUNTER → 2018-06-05 | Outpatient (CLI) | payer MEDICARE, BC, OTHER ==
[~2018-06-05] MED LIST changes: +LIDOCAINE 2% MDV 20 ML VIAL As Ordered
== END | disposition home or self-care (01) ==
LOC: M IRPRO 07:43
DX: T82.858A Stenosis of other vascular prosthetic devices, implants and grafts, initial encounter (principal); N18.6 End stage renal disease; Z99.2 Dependence on renal dialysis
CPT/HCPCS: 36902

== ENCOUNTER → 2018-08-08 | Outpatient (CLI) | payer MEDICARE, BC, OTHER ==
[~2018-08-08] MED LIST changes: +ASPI81TA85 PO; +ASPI81TAEC PO; +ATEN25TA PO; +ATOR1TAB19 PO; +ATOR1TAB21 PO; +BACT800T5 PO; +CALC1CAP PO; +CINA30TA PO; +DIPH25CA PO; +DOXY100T PO; +FENO160T10 PO; +GLIM1TAB PO; +GLIP5TAB8 PO; +IODOGEL EX; -ISOVUE-300 61% 50ML VIAL (Q9967) As Ordered; -LIDOCAINE 2% MDV 20 ML VIAL As Ordered; +LUTE40CA2 PO; -MIDAZOLAM INJ 2 MG/2 ML VIAL (J2250) As Ordered; +PANT40TA3 PO; +RENATAB5 PO; +RENV2TAB PO; +SENN18TA PO; +SILV-4 TOP; +SULF1TAB72 PO; +VITA50005 PO; -fentaNYL 100 MCG/2 ML INJECTION (J3010) As Ordered
[2018-08-08 15:16] LABS: BASO % 0.7 % (0.0-1.0); EOS # 0.1 10^3/uL (0.0-0.50); EOS % 1.7 % (0.0-3.0); HEMATOCRIT 34.4 % (42.0-52.0); LYMPH # 1.1 10^3/uL (1.5-4.5); LYMPH % 26.4 % (24.0-44.0); MEAN CORPUSCULAR HEMOGLOBIN 27.4 pg (27.0-33.0); MEAN CORPUSCULAR VOLUME 85.8 fl (80.0-96.0); MONO # 0.4 10^3/uL (0.0-0.8); MONO % 10.5 % (0.0-5.0); NEUTROPHILS # 2.4 10^3/uL (1.8-7.7); NEUTROPHILS % 60.5 % (36.0-66.0); RED BLOOD COUNT 4.01 10^6/uL (4.30-6.10)
[2018-08-08 15:38] LABS: PLATELET COUNT, AUTOMATED 71 10^3/uL (150-450)
[2018-08-08 15:46] LABS: ALBUMIN 3.3 GM/DL (3.2-5.2); BILIRUBIN,DIRECT 0.2 MG/DL (0.0-0.2); BILIRUBIN,TOTAL 0.7 MG/DL (0.2-1.0); TOTAL PROTEIN 7.8 GM/DL (6.4-8.2)
== END ==
LOC: M LAB 14:04
PROVIDERS: ATTEND Internal Medicine Gastroenterology
DX: K74.60 Unspecified cirrhosis of liver (principal)

== ENCOUNTER → 2018-08-29 | Outpatient (CLI) | payer MEDICARE, BC, OTHER ==
--- NOTE | 2018-08-29 09:28 | REP ---
ABDOMINAL SONOGRAPHY: HISTORY: Anemia. Patient with liver cirrhosis. Evaluate for hepatocellular CA, ascites, and spleen size. COMPARISON STUDY: December 13, 2017. Prior study showed cholelithiasis, hepatosplenomegaly, findings suggestive of portal hypertension and a trace of ascites. TODAY'S SONOGRAPHIC FINDINGS: Scanning through right upper quadrant of the abdomen demonstrates sludge and stones in the neck of the gallbladder. No tenderness to scanning over the gallbladder seen. Common bile duct is at the upper range of normal measuring 0.7 cm. Coarse liver texture is again seen. Moderate hepatomegaly is observed. 20 cm vertical span for the liver in the midclavicular line. No hepatic mass lesion is seen. The umbilical vein is again seen to be recannulated. The main portal vein is felt to be dilated measuring 17 mm in AP dimension. This is unchanged. The pancreas is obscured by abdominal gas. Moderate splenomegaly is observed. The splenic dimensions are 17.2 x 8.0 x 14.7 cm. There is a trace of ascites at the dome of the liver. No focal splenic lesion is seen. Renal cortical echogenicity pattern is increased consistent with chronic medical renal disease. No hydronephrosis or masses seen. The right kidney measures 13.0 x 5.3 x 6.0 cm. Left renal dimensions are 13.6 x 5.5 x 5.6 cm. IMPRESSION: Evidence of portal hypertension as above. Hepatosplenomegaly with no focal liver lesion. Cholelithiasis again noted. Trace of ascites in the right upper quadrant. Electronically Signed by Hamlet Lugo MD 08/29/2018 09:32 A
== END ==
LOC: M RAD 07:16
PROVIDERS: ATTEND Internal Medicine Gastroenterology
DX: K76.6 Portal hypertension (principal); R16.2 Hepatomegaly with splenomegaly, not elsewhere classified; K80.20 Calculus of gallbladder without cholecystitis without obstruction; R18.8 Other ascites; D64.9 Anemia, unspecified; K74.60 Unspecified cirrhosis of liver

== ENCOUNTER → 2019-02-27 | Outpatient (CLI) | payer MEDICARE, BC, OTHER ==
[~2019-02-27] MED LIST changes: +BUPIVACAINE HCL 0.5% 10 ML VIAL As Ordered ONE; -CINA30TA PO; +CINA30TA4 PO; -DIPH25CA PO; +DIPH25CA32 PO; +ISOVUE-300 61% 50ML VIAL (Q9967) As Ordered ONE; +LIDOCAINE 2% MDV 20 ML VIAL As Ordered ONE; +MIDAZOLAM INJ 2 MG/2 ML VIAL (J2250) As Ordered ONE; +PROP10TA56 PO; +diphenhydrAMINE INJ 50MG/ML VIAL (J1200) As Ordered ONE; +fentaNYL 100 MCG/2 ML INJECTION (J3010) As Ordered ONE
[2019-02-27 13:15] VITALS: BP 111/65
--- NOTE | 2019-04-03 12:20 | REPIR ---
DATE OF PROCEDURE: 02/27/2019 ATTENDING SURGEON: Dr. Jennifer Krishnan SULFUR CHLORIDE OPERATOR: Adele Abdi and Lelia Evans PREOPERATIVE DIAGNOSES: End-stage renal disease, dysfunctional right radiocephalic arteriovenous fistula. POSTOPERATIVE DIAGNOSES: End-stage renal disease, dysfunctional right radiocephalic arteriovenous fistula. PROCEDURE: Right radiocephalic arteriovenous fistulogram, retrograde right radial artery angiogram, two cannulations of the right radiocephalic arteriovenous fistula, selective right radial artery catheter placement with angiogram and runoff, right radial artery angioplasty with 6 x 40 and 6 x 40 mm balloons, right cephalic vein angioplasty with 6 x 40 and 7 x 40 mm balloons. INDICATION: The patient is a 69-year-old male with a right radiocephalic arteriovenous fistula which has been difficult to use for cannulation for hemodialysis, as well as poor flow rates during hemodialysis. The patient will undergo a fistulogram with possible angioplasty, stent and/or atherectomy. ANESTHESIA: Local with sedation 2 mg Versed, mcg of fentanyl and 4 mL of 2% lidocaine mixed with 0.5% Marcaine, Benadryl 50 mg. FLUORO TIME: 1.6 minutes. CONTRAST: 4 mL of Isovue-300. SEDATION TIME: From 12:40 p.m. to 12:59 p.m. for a total of 19 minutes. COMPLICATIONS: None. DRAINS: None. SPECIMENS: None. IMPLANTS: None. PROCEDURE: The patient was taken to the angiography suite, placed supine on the angiography room table and then prepped and draped in a standard surgical fashion. The right radiocephalic arteriovenous fistula was cannulated with a micropuncture needle after anesthetizing the overlying skin and subcutaneous tissue. The fistulogram was performed showing the cephalic vein to be widely patent into the upper arm essentially with no stenosis noted. A retrograde radial artery angiogram was performed showing stenosis at the arteriovenous anastomosis. A second cannulation of the fistula was performed directed toward the arteriovenous anastomosis. Catheter was advanced through the anastomosis and into the radial artery in a retrograde fashion and a selective right radial artery angiogram was performed. This showed stenosis at the arteriovenous anastomosis. The right radial artery and cephalic vein were then angioplastied at the anastomosis with a 6 x 40 balloon. A completion radial artery angiogram showed residual stenosis. The right radial artery and cephalic vein were further angioplastied with 7 x 40 mm balloon with a completion radial artery angiogram showing resolution of the stenosis. There was a much stronger thrill and flow noted in the fistula at completion of the angioplasty of the right radial artery and cephalic vein. The sheath were removed and 2-0 Prolene sutures were placed at the puncture site for hemostasis. Dressings were then applied. The patient tolerated procedure well. All instrument, sponge, and needle counts were correct at the case. There were no complications. Dr. Krishnan was present for and directed the entire case. The patient was transferred to the holding area and subsequently discharged in stable condition. One suture of 2-0 Prolene suture was removed and good hemostasis noted.
== END ==
LOC: M IRPRO 11:36
PROVIDERS: ATTEND Surgery Vascular Surgery
DX: N18.6 End stage renal disease (principal); T82.897A Other specified complication of cardiac prosthetic devices, implants and grafts, initial encounter; I25.10 Atherosclerotic heart disease of native coronary artery without angina pectoris; E11.9 Type 2 diabetes mellitus without complications; K21.9 Gastro-esophageal reflux disease without esophagitis; Z86.73 Personal history of transient ischemic attack (TIA), and cerebral infarction without residual deficits; X58.XXXA Exposure to other specified factors, initial encounter; Y93.9 Activity, unspecified; Y92.9 Unspecified place or not applicable; Y99.9 Unspecified external cause status
CPT/HCPCS: 36902; 99152; C1725; C1769; C1887; C1894; J1200; J2250; J3010; Q9967

== ENCOUNTER 2019-05-31 12:57 | Emergency (ER) | payer MEDICARE, BC, OTHER ==
[~2019-05-31] VITALS: Ht 172.7 cm; Wt 106.5 kg
[~2019-05-31 12:57] MED LIST changes: -BUPIVACAINE HCL 0.5% 10 ML VIAL As Ordered ONE; -GLIM1TAB PO; +GLIM1TAB2 PO; -ISOVUE-300 61% 50ML VIAL (Q9967) As Ordered ONE; -LIDOCAINE 2% MDV 20 ML VIAL As Ordered ONE; -MIDAZOLAM INJ 2 MG/2 ML VIAL (J2250) As Ordered ONE; -diphenhydrAMINE INJ 50MG/ML VIAL (J1200) As Ordered ONE; -fentaNYL 100 MCG/2 ML INJECTION (J3010) As Ordered ONE
[2019-05-31 14:28] LABS: BASO % 0.4 % (0.0-1.0); EOS # 0.1 10^3/uL (0.0-0.5); EOS % 1.6 % (0.0-3.0); HEMATOCRIT 37.9 % (42.0-52.0); HEMOGLOBIN 12.6 g/dl (13.5-17.5); LYMPH # 1.2 10^3/uL (1.5-5.0); LYMPH % 15.8 % (24.0-44.0); MEAN CORPUSCULAR HEMOGLOBIN 29.4 pg (27.0-33.0); MEAN CORPUSCULAR HGB CONC 33.2 g/dl (32.0-36.5); MEAN CORPUSCULAR VOLUME 88.3 fl (80.0-96.0); MONO # 0.8 10^3/uL (0.0-0.8); MONO % 10.5 % (0.0-5.0); NEUTROPHILS # 5.3 10^3/uL (1.5-8.5); NEUTROPHILS % 71.4 % (36.0-66.0); RED BLOOD COUNT 4.29 10^6/uL (4.30-6.10); WHITE BLOOD COUNT 7.4 10^3/uL (4.0-10.0)
[2019-05-31 14:39] LABS: PLATELET COUNT, AUTOMATED 86 10^3/uL (150-450)
[2019-05-31] MEDS ORDERED: LIDOCAINE W/EPINEPHRINE 1% 20ML VIAL As Ordered ONE (14:56)
--- NOTE | 2019-05-31 15:05 | REP ---
REASON: Cough and dyspnea. COMPARISON: 01/28/2015, the latest prior. The technique utilized in obtaining the radiograph has magnified the cardiac silhouette and accentuated the interstitial markings. There is cardiomegaly accentuating by technique, status quo. There has been previous median sternotomy. There is no change in the lung bruno. IMPRESSION: Cardiomegaly. No acute cardiopulmonary disease. Electronically Signed by Matt Prabhakar DO 05/31/2019 03:16 P
[2019-05-31 15:09] LABS: BLOOD UREA NITROGEN 46 MG/DL (7-18); CALCIUM LEVEL 8.7 MG/DL (8.8-10.2); CARBON DIOXIDE LEVEL 30 MEQ/L (21-32); CHLORIDE LEVEL 93 MEQ/L (98-107); CK-MB VALUE MASS 1.9 NG/ML (<3.6); CPK CREATINE PHOSPHOKINASE 93 U/L (39-308); GLUCOSE, FASTING 241 MG/DL (70-100); MB/CK RELATIVE INDEX 2.04 (< OR =4); POTASSIUM SERUM 3.7 MEQ/L (3.5-5.1); SODIUM LEVEL 134 MEQ/L (136-145); TROPONIN I < 0.02 NG/ML (< 0.10)
[2019-05-31] MEDS ORDERED: VANCOMYCIN HCL 1,000 MG, VIAL MATE ADAPTER 1 EACH in D5W 250 ML IV ONE (16:00)
[2019-05-31] MEDS ORDERED: LIDOCAINE W/EPINEPHRINE 1% 20ML VIAL SC ONE (16:00)
[2019-05-31] MEDS ORDERED: LevoFLOXacin IV 750 MG in IV 1 EA IV ONE (16:00)
[2019-05-31] MEDS ORDERED: LEVA1TAB2 PO (17:30)
[2019-05-31 19:08] VITALS: BP 123/62
--- NOTE | 2019-06-01 18:53 | ECGEPIP ---
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
[2019-06-02] MEDS ORDERED: MUCI600T31 PO (14:09)
[2019-06-02] MEDS ORDERED: DIPH25CA32 PO (14:09)
[2019-06-02] MEDS ORDERED: CINN500C2 PO (14:09)
[2019-06-02] MEDS ORDERED: NEPHRO VITE PO (14:09)
[2019-06-02] MEDS ORDERED: ACET650T15 PO (14:09)
[2019-06-02] MEDS ORDERED: SODI15SS PO (14:09)
== END 2019-05-31 19:26 | disposition home or self-care (01) ==
LOC: M ED 12:57
DX: L02.211 Cutaneous abscess of abdominal wall (principal); I12.0 Hypertensive chronic kidney disease with stage 5 chronic kidney disease or end stage renal disease; J06.9 Acute upper respiratory infection, unspecified; N18.6 End stage renal disease; Z79.84 Long term (current) use of oral hypoglycemic drugs; Z79.899 Other long term (current) drug therapy; Z95.1 Presence of aortocoronary bypass graft; Z99.2 Dependence on renal dialysis
CPT/HCPCS: 10060; 71045; 80048; 82550; 82553; 84484; 85025; 85049; 85055; 87070; 87077; 87186; 93005; 93041; 94760; 96365; 96367; 99284; J1956; J3370

== ENCOUNTER 2019-06-10 09:07 | Day surgery (SDC) | payer MEDICARE, BC, OTHER ==
[~2019-06-10] VITALS: Ht 170.2 cm; Wt 72.6 kg
[~2019-06-10 09:07] MED LIST changes: +ACET650T15 PO; +CINN500C2 PO; +LEVA1TAB2 PO; +MUCI600T31 PO; +NEPHRO VITE PO; +NS 1,000 ML IV ONE; +SODI15SS PO
[2019-06-10] MEDS ORDERED: LIDOCAINE 2% INJ 100 MG/5 ML SDV (FOR ANES.) As Ordered ONE (10:48)
[2019-06-10] MEDS ORDERED: PROPOFOL 200 MG/20 ML VIAL As Ordered ONE ×2 (10:48→11:12)
--- NOTE | 2019-06-10 11:49 | ROOR ---
Patient Name: Kristopher Tyson Procedure Date: 06/10/2019 11:05 AM Date of : 1950 Age: 69 Room: [facility] Gender: Male Note Status: Finalized Procedure: Upper GI endoscopy Indications: Follow-up of polyps in the duodenum Providers: Timur Villanueva MD Referring MD: Irina Mayorga MD Requesting Provider: Medicines: Monitored Anesthesia Care Complications: No immediate complications. Procedure: Pre-Anesthesia Assessment: - Prior to the procedure, a History and Physical was performed, and patient medications and allergies were reviewed. The patient is competent. The risks and benefits of the procedure and the sedation options and risks were discussed with the patient. All questions were answered and informed consent was obtained. Patient identification and proposed procedure were verified by the physician, the nurse and the anesthesiologist in the procedure room. Mental Status Examination: alert and oriented. Airway Examination: normal oropharyngeal airway and neck mobility. Respiratory Examination: clear to auscultation. CV Examination: normal. Prophylactic Antibiotics: The patient does not require prophylactic antibiotics. Prior Anticoagulants: The patient has taken no previous anticoagulant or antiplatelet agents. ASA Grade Assessment: III - A patient with severe systemic disease. After reviewing the risks and benefits, the patient was deemed in satisfactory condition to undergo the procedure. The anesthesia plan was to use monitored anesthesia care (MAC). Immediately prior to administration of medications, the patient was re-assessed for adequacy to receive sedatives. The heart rate, respiratory rate, oxygen saturations, blood pressure, adequacy of pulmonary ventilation, and response to care were monitored throughout the procedure. The physical status of the patient was re-assessed after the procedure. The Endoscope was introduced through the mouth, and advanced to the second part of duodenum. The upper GI endoscopy was accomplished without difficulty. The patient tolerated the procedure well. Findings: Grade II varices were found in the lower third of the esophagus. A large, polypoid, non-circumferential mass with no bleeding and no stigmata of recent bleeding was found in the prepyloric region of the stomach. Biopsies were taken with a cold forceps for histology. Verification of patient identification for the specimen was done by the physician and nurse using the patient's name, date and medical record number. Estimated blood loss was minimal. For hemostasis, one hemostatic clip was successfully placed. There was no bleeding at the end of the procedure. Three 8 to 15 mm sessile polyps with no bleeding were found in the first portion of the duodenum. The polyp was removed with a hot snare. Resection and retrieval were complete. Impression: - Grade II esophageal varices. - Rule out malignancy, gastric tumor in the prepyloric region of the stomach. Biopsied. Clip was placed. - Three duodenal polyps. Resected and retrieved. Recommendation: - Patient has a contact number available for emergencies. The signs and symptoms of potential delayed complications were discussed with the patient. Return to normal activities tomorrow. Written discharge instructions were provided to the patient. - Clear liquid diet for 1 day, then advance as tolerated to resume previous diet. - Continue present medications. - Use Protonix (pantoprazole) 40 mg PO twice daily - to be taken in morning (1/2 hour before breakfast) and at bedtime ( atleast 3 hours after last meal) for 6 weeks. - Await pathology results. - Perform an upper endoscopic ultrasound (UEUS) at appointment to be scheduled. - Telephone GI clinic for pathology results in 2 weeks. - Return to primary care physician. Timur Villanueva MD Timur Villanueva MD 06/10/2019 11:49:23 AM Electronically signed by Timur Villanueva MD Number of Addenda: 0 Note Initiated On: 06/10/2019 11:05 AM Estimated Blood Loss: Estimated blood loss was minimal.
[2019-06-10 12:19] VITALS: BP 109/63
== END 2019-06-10 12:20 | disposition home or self-care (01) ==
LOC: M OPP 09:07
PROVIDERS: ATTEND Internal Medicine Gastroenterology
DX: I85.00 Esophageal varices without bleeding (principal); D49.0 Neoplasm of unspecified behavior of digestive system; K31.7 Polyp of stomach and duodenum; Z79.84 Long term (current) use of oral hypoglycemic drugs; Z79.899 Other long term (current) drug therapy

== ENCOUNTER → 2019-07-10 | Outpatient (CLI) | payer MEDICARE, BC, OTHER ==
[~2019-07-10] MED LIST changes: -NS 1,000 ML IV ONE
--- NOTE | 2019-07-10 10:57 | REP ---
RIGHT UPPER QUADRANT ULTRASOUND: Real-time sonographic evaluation of the right upper quadrant performed. Multiple gallstones are seen in the gallbladder. The gallbladder wall is upper limits of normal in thickness at 4 mm. There is also some sludge in the gallbladder. There is no intrahepatic or extrahepatic biliary dilatation, common bile duct measuring 5 mm. Liver demonstrates diffuse heterogeneous echotexture compatible with diffuse fibrofatty infiltration and probable cirrhosis. Main portal vein measures 19 mm which is mildly dilated compatible with portable hypertension. There is mild hepatomegaly with the length of the liver 18.9 cm in the mid clavicular line. There is a recannulized umbilical vein. Pancreas could not be seen due to overlying bowel gas. No gross liver mass is seen. Right kidney demonstrates no hydronephrosis with normal size 12.4 cm in length. I do not see evidence of significant ascites. IMPRESSION: Multiple gallstones in the gallbladder. No biliary dilatation or free fluid. Findings of the liver compatible with cirrhosis with no gross mass. There are findings of mild hepatomegaly and portal hypertension. Electronically Signed by Vamshi Ledesma MD 07/10/2019 11:47 A
== END ==
LOC: M RAD 08:58
PROVIDERS: ATTEND Internal Medicine Gastroenterology
DX: K31.7 Polyp of stomach and duodenum (principal)

== ENCOUNTER → 2019-09-04 | Outpatient (CLI) | payer MEDICARE, BC, OTHER ==
[~2019-09-04] MED LIST changes: -GLIM1TAB2 PO; +GLIM1TAB4 PO; -SULF1TAB72 PO; +SULF400T14 PO
--- NOTE | 2019-09-04 09:15 | REP ---
The abdominal ultrasound survey: History: Four-quadrant survey for ascites. Findings: Four-quadrant abdominal sonographic survey shows no evidence of abdominal ascites. Impression: No ascites seen. Electronically Signed by Hamlet Lugo MD 09/04/2019 09:06 A
== END ==
LOC: M RAD 06:45
PROVIDERS: ATTEND Internal Medicine Nephrology
DX: N18.6 End stage renal disease (principal); K74.69 Other cirrhosis of liver; R10.30 Lower abdominal pain, unspecified

== ENCOUNTER → 2019-09-16 | Outpatient (CLI) | payer MEDICARE, BC, OTHER ==
[~2019-09-16] MED LIST changes: +ISOVUE-300 61% 50ML VIAL (Q9967) As Ordered ONE; +LIDOCAINE 1% MDV 20ML VIAL As Ordered ONE; +MIDAZOLAM INJ 2 MG/2 ML VIAL (J2250) As Ordered ONE; +SEVE800T3 PO; +fentaNYL 100 MCG/2 ML INJECTION (J3010) As Ordered ONE
--- NOTE | 2019-09-16 14:25 | ROOPDOC ---
[facility] Report Of Operation Report of Operation DATE OF PROCEDURE: 09/16/19 PREPROCEDURE DIAGNOSES: End-stage renal disease on hemodialysis with difficulty cannulating with venous needle at dialysis POSTPROCEDURE DIAGNOSES: Same PROCEDURE: 1. Ultrasound-guided access right Bakari fistula near AV anastomosis 2. Fistulogram and central venogram 3. Coiling large branch of forearm cephalic vein with 8 Alyson coil, 5 x 3 tornado coil, 4 x 3 tornado coil. 4. Completion venogram SURGEON: Jada Dooley MD ANESTHESIA: Local anesthesia 4 cc lidocaine. Moderate intravenous conscious sedation was administered by Dr. Dooley. The patient was independently monitored by a registered nurse assigned in the department of radiology using automated blood pressure, EKG, and pulse oximetry. The patient's detailed sedation record is primarily [facility] information system. The following is a brief sedation record: Start time 13:27, stop time 13:59, Versed 0.5 mg IV, fentanyl 25 g IV. CONTRAST: 30 mL [id number] INDICATION FOR PROCEDURE: This is a very pleasant 69-year-old gentleman with end-stage renal disease currently dialyzing with a right upper extremity Bakari fistula. He is not having any trouble with his inflow or outflow, but the nurses are having trouble cannulating his venous needle and were hoping we could provide some assistance with this. Risks benefits and alternatives to a fistulogram and potential intervention were explained to the patient and he was agreeable to proceed. Informed consent was obtained. INTERPRETATION: 1. The arteriovenous anastomosis is widely patent with good inflow and no signs of stenosis at the anastomosis. The cephalic vein in the forearm is large and widely patent with no areas of aneurysmal dilation or stenosis noted. There is a large cephalic vein branch in the mid forearm that is stealing a significant amount of blood back into the venous system in the upper arm away from the fistula where they are accessing with the venous needle. The basilic and cephalic veins in the upper arm are both excellent outflow for this fistula with no signs of stenosis. The central veins are widely patent. 2. After coiling of the large branch mid cephalic vein in the forearm, there was an improved thrill over the cephalic vein in the forearm and no flow seen in the branch. REPORT OF OPERATION: The patient was brought to the angiographic suite in stable condition and his right upper extremity was prepped and draped in a sterile fashion. A timeout was performed. Local anesthesia was administered to skin and subcutaneous tissue over the cephalic vein near the AV anastomosis and a microneedle was used to access the main under ultrasound guidance. A wire was passed through this access under ultrasound guidance up through the forearm and a micro-sheath was placed. Through this access, we navigated Glidewire under fluoroscopic guidance into the central system and the sheath was exchanged for his 6 Estonian sheath and flushed with saline. A fistulogram and central venogram were performed. Please see interpretation above. A Gleich cath and Glidewire were used to access the large branch in the mid forearm off the cephalic vein. A quick contrast injection confirmed we were in the branch. We then flushed with saline and deployed first and 8 mm alyson coil followed by a 5 x 3 and 4 x 3 tornado coils. Fistulogram through the sheath showed widely patent inflow through the cephalic vein and successful coiling with no flow through the branch. There was improved thrill in the fistula. We then placed a [id number] Prolene stitch around the sheath and the sheath was removed. Pressure was held for 5 minutes and sterile dressings were applied. The patient tolerated the procedure well and was taken to recovery in stable condition. ESTIMATED BLOOD LOSS: Approximately 2 mL. COMPLICATIONS: None. PLAN: We will remove the suture at the access site before the patient leaves today. It is okay to use the fistula for dialysis. We will see the patient back on an as-needed basis. It is okay to resume his preop diet and medications. JADA DOOLEY MD Sep 16, 2019 14:25
[2019-09-16 14:45] VITALS: BP 117/65
== END ==
LOC: M IRPRO 12:07
PROVIDERS: ATTEND Surgery Vascular Surgery
DX: T82.590A Other mechanical complication of surgically created arteriovenous fistula, initial encounter (principal); N18.6 End stage renal disease; E11.22 Type 2 diabetes mellitus with diabetic chronic kidney disease; I12.0 Hypertensive chronic kidney disease with stage 5 chronic kidney disease or end stage renal disease; E78.5 Hyperlipidemia, unspecified; X58.XXXA Exposure to other specified factors, initial encounter; Y93.9 Activity, unspecified; Y92.9 Unspecified place or not applicable; Y99.9 Unspecified external cause status
CPT/HCPCS: 36901; 36909; 99152; 99153; C1769; C1887; C1894; J1644; J2250; J3010; Q9967

== ENCOUNTER 2019-10-02 11:18 | Inpatient (IN) | payer MEDICARE, BC, OTHER ==
[~2019-10-02] VITALS: Ht 172.7 cm; Wt 111.6 kg
[~2019-10-02 11:18] MED LIST changes: -ISOVUE-300 61% 50ML VIAL (Q9967) As Ordered ONE; -LIDOCAINE 1% MDV 20ML VIAL As Ordered ONE; -MIDAZOLAM INJ 2 MG/2 ML VIAL (J2250) As Ordered ONE; -fentaNYL 100 MCG/2 ML INJECTION (J3010) As Ordered ONE
[2019-10-02] MEDS ORDERED: LIDOCAINE W/EPINEPHRINE 1% 20ML VIAL SC ONE (13:15)
[2019-10-02] MEDS ORDERED: NS 500 ML IV ONE (13:45)
[2019-10-02 13:54] LABS: BASO % 0.4 % (0.0-1.0); EOS # 0.1 10^3/uL (0.0-0.5); EOS % 1.2 % (0.0-3.0); LYMPH # 1.2 10^3/uL (1.5-5.0); LYMPH % 13.9 % (24.0-44.0); MEAN CORPUSCULAR HEMOGLOBIN 28.4 pg (27.0-33.0); MEAN CORPUSCULAR HGB CONC 32.3 g/dl (32.0-36.5); MEAN CORPUSCULAR VOLUME 88.1 fl (80.0-96.0); MONO # 0.9 10^3/uL (0.0-0.8); MONO % 10.7 % (0.0-5.0); NEUTROPHILS # 6.1 10^3/uL (1.5-8.5); NEUTROPHILS % 73.2 % (36.0-66.0); RED BLOOD COUNT 3.52 10^6/uL (4.30-6.10); WHITE BLOOD COUNT 8.4 10^3/uL (4.0-10.0)
[2019-10-02 14:06] LABS: PLATELET COUNT, AUTOMATED 95 10^3/uL (150-450)
[2019-10-02 14:11] LABS: ALBUMIN 2.5 GM/DL (3.2-5.2); BILIRUBIN,DIRECT 0.4 MG/DL (0.0-0.2); BILIRUBIN,TOTAL 1.1 MG/DL (0.2-1.0); CALCIUM LEVEL 7.9 MG/DL (8.8-10.2); CREATININE FOR GFR 5.89 MG/DL (0.70-1.30); GLOMERULAR FILTRATION RATE 10.1 (>42); POTASSIUM SERUM 3.6 MEQ/L (3.5-5.1); TOTAL PROTEIN 6.6 GM/DL (6.4-8.2)
[2019-10-02] MEDS: NS 1,000 ML IV SCH ×2 (16:16→22:39)
[2019-10-02] MEDS ORDERED: VANCOMYCIN HCL 1,000 MG, VIAL MATE ADAPTER 1 EACH in D5W 250 ML IV STA (19:07)
[2019-10-02] MEDS ORDERED: VITA50005 PO (19:40)
[2019-10-02] MEDS ORDERED: PANT40TA3 PO (19:40)
[2019-10-02] MEDS ORDERED: GABA-1171 PO (19:40)
[2019-10-02] MEDS ORDERED: GLIP5TAB20 PO (19:40)
[2019-10-02] MEDS ORDERED: ACETAMINOPHEN 650MG ER TAB (TYLENOL ARTHRITIS) PO PRN (20:00)
[2019-10-02] MEDS ORDERED: GLUCAGON FOR INJ 1 MG VIAL (J1610) SC PRN (20:00)
[2019-10-02] MEDS ORDERED: DEXTROSE 50% 50 ML SYRINGE IV PRN (20:00)
[2019-10-02] MEDS ORDERED: diphenhydrAMINE 25 MG CAP PO PRN (20:00)
[2019-10-02] MEDS ORDERED: SOD POLYSTYRENE SULFONATE SUSP 15 GM/60 ML UD PO SCH (20:00)
[2019-10-02] MEDS ORDERED: GLUCOSE 4 GM CHEW TABLET PO PRN (20:00)
--- NOTE | 2019-10-02 20:15 | HPEPDOC ---
General Date of Admission 10/02/19 Date of Service: Oct 02, 2019 Chief Complaint The patient is a 69-year-old male admitted with a reason for visit of Abscess. Source: Patient Exam Limitations: No limitations Timing/Duration: 24 hours Severity: Mild History of Present Illness Patient 69 years old male with past medical history of coronary arterial disease with coronary artery bypass graft (CABG), diabetes type 2, end-stage renal disease on hemodialysis Sunday, Sunday, Sunday presented hospital with left hip abscess. In ER the abscess was drained by incision. Also patient was found to have hypotension of 88/45, elevated lactic acid of 2.4. Dr. Nam recommended admission and start vancomycin due to possibility of sepsis. Patient denies fever, chills, nausea, vomiting, any chest pain, shortness of breath, diarrhea. Patient doesn't have leukocytosis. Home Medications Scheduled Cinnamon Bark (Cinnamon) 500 Mg Capsule, 500 MG PO DAILY, (Reported) Ergocalciferol (Vitamin D2) (Vitamin D2) 50,000 Units Cap, 50,000 UNITS PO 1XWK, (Reported) SATURDAYS Folic Acid/Vit B Complex and C (Adela-Liza Tablet) 1 Tab Tab, 1 TAB PO DAILY, (Reported) Gabapentin (Gabapentin) 100 Mg Capsule, 100 MG PO BID, (Reported) Glipizide (Glipizide ER) 5 Mg Tab.er.24, 5 MG PO BID, (Reported) 2ND DOSE WITH DINNER Pantoprazole Sodium (Pantoprazole Sodium) 40 Mg Tablet.dr, 40 MG PO DAILY, (Reported) Propranolol HCl (Propranolol HCl) 10 Mg Tab, 5 MG PO DAILY, (Reported) Propranolol HCl (Propranolol HCl) 10 Mg Tab, 10 MG PO QHS, (Reported) Sevelamer Carbonate (Sevelamer Carbonate) 800 Mg Tablet, 800 MG PO DAILY, (Reported) Sodium Polystyrene Sulfonate (Sps 15 gm/60 ml Suspension) 15 Gm/60 Ml Oral.susp, 15 GM PO ASDIRECTED, (Reported) Scheduled PRN Acetaminophen (Acetaminophen ER) 650 Mg Tablet.er, 650 MG PO TID PRN for FEVER, (Reported) Diphenhydramine HCl (Diphenhydramine HCl) 25 Mg Capsule, 25 MG PO QHS PRN for SLEEP, (Reported) Allergies Coded Allergies: No Known Allergies (Unverified , 09/10/18) Past Medical History Medical History 1. Coronary arterial disease. 2. End-stage renal disease. 3. Type 2 diabetes. 4. Being treated for cellulitis. 5. History of transient ischemic attack (TIA) with left-sided paresthesia which has resolved. Surgical History 1. Appendectomy. 2. Coronary artery bypass graft (CABG). 3. Arteriovenous (AV) fistula. Family History I personally reviewed family history and found not pertinent Social History * Smoker: Denies Alcohol: Denies Drugs: denies A-FIB/CHADSVASC A-FIB History Current/History of A-Fib/PAF?: No Current PO Anticoag Therapy: No Review of Systems Constitutional: Denies: Chills, Fever Eyes: Denies: Pain, Vision change ENT: Denies: Head Aches, Ear Pain Skin: Reports: Lesions (lateral left hip abscess which was drained); Denies: Rash Pulmonary: Denies: Dyspnea Cardiovascular: Denies: Chest Pain, Palpitations Gastrointestinal: Denies: Nausea, Vomiting Genitourinary: Denies: Frequency, Incontinence Hematologic: Denies: Bruising Endocrine: Denies: Polydipsia, Polyphagia Musculoskeletal: Denies: Neck Pain, Back Pain Neurological: Denies: Weakness Psych: Reports: Mood Normal Physical Examination General Exam: Positive: Alert, Cooperative Eye Exam: Positive: PERRLA Neck Exam: Positive: Supple; Negative: JVD Chest Exam: Positive: Clear to auscultation Heart Exam: Positive: Rate Normal Telemetry: Positive: No significant arrhythmia Abdomen Exam: Positive: Normal bowel sounds Extremity Exam: Negative: Clubbing, Cyanosis Skin Exam: Positive: Nl turgor and temperature Neuro Exam: Positive: Normal Gait, Strength at 5/5 X4 ext, Cranial Nerves 3-12 NL Psych Exam: Positive: Mental status NL Vital Signs Vital Signs Date Time Temp Pulse Resp B/P (MAP) Pulse Ox O2 Delivery O2 Flow Rate FiO2 10/02/19 12:23 80/47 (58) 10/02/19 12:02 99.4 83 16 92 Room Air Laboratory Data Labs 24H Laboratory Tests 2 10/02/19 13:37: Immature Granulocyte % (Auto) 0.6, Neutrophils (%) (Auto) 73.2H, Lymphocytes (%) (Auto) 13.9L, Monocytes (%) (Auto) 10.7H, Eosinophils (%) (Auto) 1.2, Basophils (%) (Auto) 0.4, Neutrophils # (Auto) 6.1, Lymphocytes # (Auto) 1.2L, Monocytes # (Auto) 0.9H, Eosinophils # (Auto) 0.1, Basophils # (Auto) 0.0, Nucleated Red Blood Cells % (auto) 0.0, Immature Platelet Fraction 1.5, Anion Gap 11, Glomerular Filtration Rate 10.1L, Lactic Acid Level 2.4*H, Calcium Level 7.9L, Total Bilirubin 1.1H, Direct Bilirubin 0.4H, Aspartate Amino Transf (AST/SGOT) 24, Alanine Aminotransferase (ALT/SGPT) 16, Alkaline Phosphatase 58, Total Protein 6.6, Albumin 2.5L, Albumin/Globulin Ratio 0.61L 10/02/19 18:03: Lactic Acid Level 2.7*H CBC/BMP Laboratory Tests 10/02/19 13:37 Microbiology Microbiology 10/02/19 Blood Culture, Received Pending 10/02/19 Blood Culture, Received Pending 10/02/19 Gram Stain - Final, Resulted 10/02/19 Wound Culture, Resulted Pending Assessment/Plan Patient 69 years old male with past medical history of coronary arterial disease with coronary artery bypass graft (CABG), diabetes type 2, end-stage renal disease on hemodialysis Sunday, Sunday, Sunday presented hospital with left hip abscess. In ER the abscess was drained by incision. Also patient was found to have hypotension of 88/45, elevated lactic acid of 2.4. Dr. Nam recommended admission and start vancomycin due to possibility of sepsis. Patient denies fever, chills, nausea, vomiting, any chest pain, shortness of breath, diarrhea. Patient doesn't have leukocytosis. Problems (1) Sepsis Status: Acute Problem Text: There is concern for sepsis given low blood pressure and lactic acidosis However patient doesn't have leukocytosis and his afebrile Patient has end-stage renal diseases and he is on dialysis, his immunological response can be blunted I empirically started vancomycin IV and Zosyn IV 2, MRSA and Pseudomonas Blood culture ordered, urine culture ordered (2) Lactic acidosis Status: Acute Problem Text: Secondary to uremia or sepsis Continue to monitor (3) Hypotension Status: Acute Problem Text: Would be secondary to sepsis or beta blockers I stopped propranolol (4) ESRD (end stage renal disease) on dialysis Status: Acute Problem Text: Consulting Solution Manager follows him, dialysis tomorrow (5) Abscess, gluteal, right Status: Acute Problem Text: It was drained by incision (6) Diabetes mellitus Status: Chronic Problem Text: Diabetes diet Insulin sliding scale Plan / VTE VTE Prophylaxis Ordered?: Yes JOSE KOCH DO Oct 02, 2019 20:15
[2019-10-02] MEDS ORDERED: VANCOMYCIN HCL 1,000 MG, VIAL MATE ADAPTER 1 EACH in D5W 250 ML IV SCH (20:30)
[2019-10-02] MEDS ORDERED: PIPERACILLIN/TAZOBACTAM SOD 3.375 GM in D5W MINI-BAG PLUS 50 ML IV SCH (21:00)
[2019-10-02] MEDS: HumaLOG INSULIN (NovoLOG) PER UNIT SC SCH (21:00)
[2019-10-02] MEDS ORDERED: VANCOMYCIN HCL 1,000 MG, VIAL MATE ADAPTER 1 EACH in D5W 250 ML IV ONE (21:00)
[2019-10-02] MEDS ORDERED: PROPRANOLOL 10 MG TAB PO SCH (21:00)
[2019-10-02] MEDS ORDERED: POTASSIUM CHLORIDE 10 MEQ SR TABLET PO ONE (21:00)
--- NOTE | 2019-10-02 21:00 | PHACANCOPD ---
PHARMACY VANCOMYCIN DOSING Pt Demographics Demographics Patient Age:69 , Weight:111.600 , Gender: male Adjusted Body Weight Date: 10/02/19, Adjusted Body Weight: Kg Events Past 24 Hours Events Past 24 Hours: YES: Dialysis, Fever; NO: Diuretic Therapy, Change in CrCl, Elevation in WBC, Pending Diagnostics, Pending Procedures, Other Vancomycin Vancomycin indication: SEPSIS Vancomycin Target Ranges: 15-20 mcg/ml Vancomycin Load Y/N: Yes Load Dose Date Time Vancomycin Load Dose: 2 gram total, 1 gram in ED @2000, 1gm scheduled for 2100 Date: 10/02/19 Time: Vancomycin Dose Date: 10/02/19. Current Vancomycin Dose: [ Intermittent vancomycin after hemodialysis ] Intermittent Dosing?: Yes Labs Labs Vital Signs Label Value Date Time Patient Temperature 99.4 degrees F 10/02/19 1202 Temperature Source Oral 10/02/19 1202 Patient Temperature 99.4 degrees F 10/02/19 1118 Temperature Source Temporal 10/02/19 1118 Blood Pressure Assessment 88/53 (65) 10/02/19 1118 Source Automatic Cuff (NIBP) Blood Pressure Assessment 69/37 (48) 10/02/19 1202 Location Left Arm Source Automatic Cuff (NIBP) Position Sitting Blood Pressure Assessment 80/47 (58) 10/02/19 1223 Item Value Date Time White Blood Count 8.4 10^3/uL 10/02/19 1337 Lactic Acid Level 2.4 MMOL/L *H 10/02/19 1337 Lactic Acid Level 2.7 MMOL/L *H 10/02/19 1803 Creatinine 5.89 MG/DL H 10/02/19 1337 Glomerular Filtration Rate 10.1 L 10/02/19 1337 Micro Microbiology 10/02/19 Blood Culture, Received Pending 10/02/19 Blood Culture, Received Pending 10/02/19 Gram Stain - Final, Resulted 10/02/19 Wound Culture, Resulted Pending Creatinine Clearance Date:10/02/19. Creatinine Clearance: [ 11 mL/min ]. Assessment and Plan Maintaining Current Dose?: Yes Reason for dose change: No Dose Change Pharmacist Note Pharmacist Note Date: 10/02/19. Pharmacist note: Mr. Tyson is a 69-year-old man who presented to the emergency department for an abscess on his left hip. This abscess was drained in the emergency department and upon further investigation he was found to have hypotension and elevated lactic acid. He was placed on broad-spectrum antibiotics consisting of Zosyn 4.5 grams every 12 hours and vancomycin. He has end-stage renal disease currently managed by hemodialysis thrice weekly on Sunday, Sunday, and Sunday. A 2 gram loading dose was scheduled for him, with subsequent doses based upon morning vancomycin trough levels prior to hemodialysis. His goal vancomycin trough is between 15-20 mcg/dL. A random vancomycin level was scheduled for tomorrow morning @0600. We will continue to monitor and make adjustments as needed. [facility] Oct 02, 2019 21:00
[2019-10-02 22:00] VITALS: BP 113/60
[2019-10-03] MEDS: PIPERACILLIN/TAZOBACTAM SOD 4.5 GM in D5W MINI-BAG PLUS 50 ML IV SCH ×2 (00:09→09:35)
[2019-10-03 02:00] VITALS: BP 104/60
[2019-10-03 06:00] VITALS: BP 106/58
[2019-10-03 06:08] LABS: HEMATOCRIT 31.4 % (42.0-52.0); HEMOGLOBIN 9.9 g/dl (13.5-17.5); MEAN CORPUSCULAR HEMOGLOBIN 27.9 pg (27.0-33.0); MEAN CORPUSCULAR HGB CONC 31.5 g/dl (32.0-36.5); MEAN CORPUSCULAR VOLUME 88.5 fl (80.0-96.0); RED BLOOD COUNT 3.55 10^6/uL (4.30-6.10); WHITE BLOOD COUNT 6.7 10^3/uL (4.0-10.0)
[2019-10-03 06:09] LABS: PLATELET COUNT, AUTOMATED 78 10^3/uL (150-450)
[2019-10-03 06:32] LABS: CALCIUM LEVEL 7.8 MG/DL (8.8-10.2); CREATININE FOR GFR 7.05 MG/DL (0.70-1.30); GLOMERULAR FILTRATION RATE 8.2 (>42); MAGNESIUM LEVEL 2.3 MG/DL (1.8-2.4); VANCOMYCIN RANDOM 20.8 UG/ML
[2019-10-03] MEDS ORDERED: VANCOMYCIN HCL 1,000 MG, VIAL MATE ADAPTER 1 EACH in D5W 250 ML IV SCH (07:00)
[2019-10-03] MEDS: NS 1,000 ML IV SCH (07:05)
[2019-10-03] MEDS: HEPARIN SOD (PORCINE) 5000 UNITS/ML VIAL (J1644 PER 1000UNITS) SC SCH ×2 (09:00→21:00)
[2019-10-03] MEDS ORDERED: PROPRANOLOL 10 MG TAB PO SCH (09:00)
[2019-10-03] MEDS: PANTOPRAZOLE 40MG TAB (PROTONIX) PO SCH (09:35)
[2019-10-03] MEDS: HumaLOG INSULIN (NovoLOG) PER UNIT SC SCH ×4 (09:35→20:53)
[2019-10-03] MEDS: GABAPENTIN 100 MG CAP PO SCH ×2 (09:35→21:04)
[2019-10-03] MEDS: (RENVELA) SEVELAMER **CARBONate** 800 MG TAB PO SCH (09:35)
[2019-10-03] MEDS ORDERED: DARBEPOETIN 100 MCG/0.5 ML *DIALYSIS* SYRINGE (J0882) IV SCH (10:45)
--- NOTE | 2019-10-03 11:46 | CR ---
DATE OF SERVICE: 10/03/2019 REQUESTING PHYSICIAN: Dr. Darinel Prieto CONSULTING PHYSICIAN: Dr. Gonzalez REASON FOR CONSULTATION: Management of end-stage renal disease and hemodialysis. CHIEF COMPLAINT: The patient presented to the hospital yesterday with fevers and left-sided leg abscess. HISTORY OF PRESENT ILLNESS: Mr. Kristopher Tyson is a 69-year-old male with past medical history of end-stage renal disease on hemodialysis every Sunday, Sunday, Sunday, history of methicillin-resistant Staphylococcus aureus (MRSA) abscesses in the past, diabetes mellitus type 2, multiple other comorbidities, as mentioned below. He reports that he had an abscess in the left thigh for few days. He was trying to treat it himself, and one of his neighbors came to help him, and when she saw the big abscess she persuaded the patient to come to the emergency room. When the patient arrived in the emergency room, he was hypotensive with lactic acidosis. The patient got incision and drainage (I and D) of the abscess done in the emergency room, and he was admitted under the hospitalist service overnight for possible sepsis secondary to MRSA, and he was given 1 gram of vancomycin, I saw and evaluated the patient today morning. He was given intravenous (IV) fluid hydration overnight. He still had fever spikes at nighttime. However, he reports that he is feeling better today as compared with yesterday. PAST MEDICAL HISTORY: Past medical history of end-stage renal disease on hemodialysis every Sunday, Sunday, Sunday, history of coronary artery disease, diabetes mellitus type 2, history of multiple gluteal hematomas and ulcers in the past, and history of MRSA infection in the past. PAST SURGICAL HISTORY: Status post appendectomy, status post coronary artery bypass grafting, and status post arteriovenous (AV) fistula placement in the right forearm. ALLERGIES: No known drug allergies. FAMILY HISTORY: No significant family history of end-stage renal disease requiring hemodialysis. SOCIAL HISTORY: The patient lives at home. He lives alone. He denies any smoking, illicit drug abuse, or alcohol abuse. REVIEW OF SYSTEMS: Constitutional: He reports low-grade fevers. Eyes: He denies any blurry vision, double vision. Ears, nose, and throat (ENT): Denies any dysphagia, odynophagia. Cardiovascular: Denies any chest pain or palpitation. Respiratory: Denies any shortness of breath. Gastrointestinal (GI): Denies any nausea, vomiting. Genitourinary: He does report decreased urine output. Musculoskeletal: He reports left thigh pain because of the abscess. Skin: He denies any rashes. Psych: He denies any depression or anxiety. Endocrine: Reports history of diabetes mellitus type 2. Hematological/oncological: He denies any easy bleeding or bruising. All other review of systems is negative. PHYSICAL EXAMINATION: General: The patient is awake, awake, alert, oriented times three, laying in bed, in no apparent distress. Vital signs: Temperature is 100 degrees Fahrenheit, maximum temperature (Tmax) is 100.8 degrees Fahrenheit last night. Blood pressure is 106/58, pulse is 87, respiratory of 70, saturating 96% on room air. Intake and output. There is no urine output recorded. Head and neck exam: Extraocular muscles intact. Pupils equally round and reactive to light. Mucous membranes are moist. Neck is supple. There is no jugular venous distention (JVD). Cardiovascular: S1, S2, regular rate. No edema of the bilateral lower extremities. Respiratory: Chest is clear to auscultation bilaterally. Bilateral equal air entry. No rales or rhonchi. Abdomen: Soft, obese, positive bowel sounds. Nontender. No organomegaly. Musculoskeletal: Patient has a boil in the left thigh which has recently been drained, and it is tender to palpation. METAL STUD FRAMER: No focal deficit. Power is 5/5 in all extremities. LAB REVIEW: CBC showed WBC 6.7, hemoglobin 9.9, platelets of 78. BMP showed sodium 134, potassium 4, chloride 95, bicarb 30, BUN 39, creatinine is 7, lactic acid was 2.4 on arrival and 1.3 right now vancomycin level is 20.8. Microbiology: Wound culture is pending. Blood cultures are also pending. CURRENT INPATIENT MEDICATIONS: The patient's medications were all reviewed by myself. He got normal saline 500 mL bolus IV. He was getting normal saline 125 mL/h, which I have stopped now. He is on vancomycin 4.5 grams IV every 12 hourly. He is on Tylenol as needed, gabapentin 100 mg by mouth twice a day, heparin 5000 units subcu every 12 hourly, Protonix 40 mg by mouth daily, potassium chloride 40 mEq by mouth times one dose, Rozerem 8 mg every hour, Renvela 800 mg by mouth daily, vitamin D 50,000 units daily. ASSESSMENT: 69-year-old male with history of end-stage renal disease on hemodialysis, coronary artery disease status post get coronary artery bypass graft (CABG), and diabetes mellitus type 2, admitted this time with the systemic inflammatory response syndrome secondary to left thigh abscess. PLAN: 1. Systemic inflammatory response syndrome. The patient came in with fever spikes, lactic acidosis, hypotension, and elevated lactic acid level. The patient was given IV fluid hydration. He responded to the IV fluids. Continue the IV antibiotics and at this time. Minimal fluid removal will be done during dialysis. 2. End-stage renal disease. Today is patient's regular day of dialysis. He will be dialyzed according to his regular schedule as mentioned above. Minimal fluid removal will be done because of low blood pressures overnight secondary to infection. 3. Diabetes mellitus type 2 non-insulin dependent. The patient is currently getting insulin sliding scale only. His sulfonylurea are on hold at this time. 4. Chronic kidney disease and mineral bone disease. Continue current dose of Renvela 800 mg by mouth with meals. 5. Anemia in end-stage renal disease. Hemoglobin is 9.9. He will be given Aranesp with dialysis. Thank you for involving me in the care of this patient. I shall be happy to follow the patient along with you tomorrow morning.
--- NOTE | 2019-10-03 14:27 | IPNPDOC ---
Text Note Date of Service The patient was seen on 10/03/19. NOTE S: Pt examined at bedside during dialysis. Feels well since abscess was drained. IT continues to drain blood & pus. Has no other complaints. Still spiking fevers. Otherwise doing well. PE: Vitals: see below General: NAD, A&Ox3, resting comfortably HEENT: NCAT, EOMI, anicteric sclera, MMM, neck supple CV: RRR, 3/6 pansystolic murmur heard best right sternal wall, no clicks or rub. No edema RESP: CTAB, no w/r/r/ ABD: soft, NT, ND. Benign EXTREMITIES: able to move all extremities. Left lateral thigh with 2mm lanced skin with surrounding erythema, actively oozing blood onto bandage. No necrosis or ulceration. No rash. NEURO: no focal deficits or acute changes A/P: This is a 69 yo M who came in for left lateral thigh abscess that was drained in ER. Pt was admitted for continued fevers and hypotension and elevated lactate with concern for sepsis. 1. Abscess of left thigh - s/p I&D in ER 10/02. Continues to drain blood & pus with relief of pain - continue Vanc & Zosyn day 1 - lactate normalized s/p abx & hypotension resolved 2. Bacteremia - gram pos cocci in clusters in both initial tubes - likely 2/2 abscess - echo & repeat cultures ordered - consult Dr. Zamarripa - on broad abx with MRSA coverage 3. Coronary arterial disease. - stable without cardiac complaints - s/p CABG, follows with Dr. Womack - home propranolol on hold given low bp on admission 4. End-stage renal disease. - HD MWF - nephro consulted 5. Type 2 diabetes. - ISS. Home glipizide on hold 6. History of transient ischemic attack - no neuro complaints or deficits DVT ppx: heparin sc DISPO: pending clinical improvement & ID eval. VS,Mikhailbone, I+O VS, Fishbone, I+O Laboratory Tests 10/03/19 05:46 Vital Signs Date Time Temp Pulse Resp B/P (MAP) Pulse Ox O2 Delivery O2 Flow Rate FiO2 10/03/19 06:00 100.0 87 17 106/58 (74) 96 Room Air I&O- Last 24 Hours up to 6 AM 10/03/19 06:00 Intake Total 1840 ml Output Total 0 ml Balance 1840 ml GME ATTESTATION GME ATTESTATION My faculty preceptor for this patient encounter was physically present during the encounter and was fully available. All aspects of the patient interview, examination, medical decision making process, and medical care plan development were reviewed and approved by the faculty preceptor. The faculty preceptor is aware and concurs with the plan as stated in the body of this note and will attest to such by his/her cosignature. ATTENDING NOTE I, Janessa Armstrong, have independently examined this patient and performed my own physical exam, as well as reviewed the documentation and edited where necessary. I have discussed in detail with the resident / student the findings and plan of treatment as documented by the resident / student and edited their note. I agree with their findings and treatment plan and have edited their documentation. I will continue to follow the patient during this hospital stay. COLE LION DO Oct 03, 2019 14:27 JANESSA ARMSTRONG MD Oct 03, 2019 17:03
[2019-10-03] MEDS: **VANCO AFTER HD** MISC XX SCH (16:00)
--- NOTE | 2019-10-03 18:23 | REP ---
Clinical: Fever. Technique: PA and lateral. Comparison: 05/31/2019. Findings: Mediastinum and cardiac silhouette stable. Evidence of prior sternotomy and CABG. Lung bruno are relatively clear and without acute consolidation or effusion. No pneumothorax. Skeletal structures are intact. Impression: No focal consolidation or effusion. Electronically Signed by Alexandre Woody MD 10/03/2019 06:14 P
[2019-10-03] MEDS: PIPERACILLIN/TAZOBACTAM SOD 2.25 GM in D5W MINI-BAG PLUS 50 ML IV SCH (21:04)
[2019-10-03 22:00] VITALS: BP 108/62
[2019-10-04 06:00] VITALS: BP 109/64
[2019-10-04 07:08] LABS: ERYTHROCYTE SEDIMENTATION RATE 80 mm/hr (0-20)
[2019-10-04 07:11] LABS: C REACTIVE PROTEIN QUANTITATIV 10.3 MG/DL (0.00-0.30)
[2019-10-04 07:54] LABS: CALCIUM LEVEL 8.5 MG/DL (8.8-10.2); CREATININE FOR GFR 5.23 MG/DL (0.70-1.30); GLOMERULAR FILTRATION RATE 11.6 (>42); MAGNESIUM LEVEL 2.3 MG/DL (1.8-2.4); POTASSIUM SERUM 4.3 MEQ/L (3.5-5.1)
[2019-10-04 08:07] LABS: BASO # 0.1 10^3/uL (0.0-0.2); BASO % 0.8 % (0.0-1.0); EOS # 0.2 10^3/uL (0.0-0.5); EOS % 2.3 % (0.0-3.0); HEMATOCRIT 35.1 % (42.0-52.0); HEMOGLOBIN 11.2 g/dl (13.5-17.5); LYMPH # 1.2 10^3/uL (1.5-5.0); LYMPH % 18.9 % (24.0-44.0); MEAN CORPUSCULAR HEMOGLOBIN 27.8 pg (27.0-33.0); MEAN CORPUSCULAR HGB CONC 31.9 g/dl (32.0-36.5); MEAN CORPUSCULAR VOLUME 87.1 fl (80.0-96.0); MONO # 0.7 10^3/uL (0.0-0.8); MONO % 10.2 % (0.0-5.0); NEUTROPHILS # 4.4 10^3/uL (1.5-8.5); NEUTROPHILS % 67.3 % (36.0-66.0); PLATELET COUNT, AUTOMATED 101 10^3/uL (150-450); RED BLOOD COUNT 4.03 10^6/uL (4.30-6.10); WHITE BLOOD COUNT 6.5 10^3/uL (4.0-10.0)
[2019-10-04] MEDS: PANTOPRAZOLE 40MG TAB (PROTONIX) PO SCH (08:38)
[2019-10-04] MEDS: (RENVELA) SEVELAMER **CARBONate** 800 MG TAB PO SCH (08:38)
[2019-10-04] MEDS: HumaLOG INSULIN (NovoLOG) PER UNIT SC SCH ×4 (08:38→22:12)
[2019-10-04] MEDS: GABAPENTIN 100 MG CAP PO SCH ×2 (08:38→22:11)
[2019-10-04] MEDS: PIPERACILLIN/TAZOBACTAM SOD 2.25 GM in D5W MINI-BAG PLUS 50 ML IV SCH ×2 (08:38→22:11)
[2019-10-04] MEDS ORDERED: VITAMIN D 50,000 UNITS CAPSULE (ERGOCALCIFEROL 1.25MG) PO SCH (09:00)
--- NOTE | 2019-10-04 10:41 | IPNPDOC ---
Text Note Date of Service The patient was seen on 10/04/19. NOTE S: Pt examined at bedside on medical floor. Feels well without any complaints. No issues overnight. Continues on antibiotics and afebrile. PE: Vitals: see below General: NAD, A&Ox3, resting comfortably HEENT: NCAT, EOMI, anicteric sclera, MMM, neck supple CV: RRR, 3/6 pansystolic murmur heard best right sternal wall, no clicks or rub. No edema RESP: CTAB, no w/r/r/ ABD: soft, NT, ND. Benign EXTREMITIES: able to move all extremities. Right forearm fistula with palpable thrill SKIN: Left lateral thigh with 2mm lanced skin with surrounding erythema slightly improved from yesterday, actively oozing pus and slight blood onto bandage. No necrosis or ulceration. No rash. NEURO: no focal deficits or acute changes A/P: This is a 69 yo M who came in for left lateral thigh abscess that was drained in ER. Pt was admitted for continued fevers and hypotension and elevated lactate with concern for sepsis. Found to be bacteremic with gram positive cocci in clusters, otherwise asymptomatic. 1. Abscess of left thigh - s/p I&D in ER 10/02. Continues to drain blood & pus with relief of pain - continue Vanc day 3 & renally-dosed Zosyn day 2 - lactate normalized s/p abx & hypotension resolved - continue dressing changes and attempt to express drainage 2. Bacteremia likely 2/2 abscess - gram pos cocci in clusters in both initial tubes. Repeat cultures & echo pending - Dr. Zamarripa consdulted, appreciate input - on broad abx with MRSA coverage - clinically doing well and stable otherwise 3. Coronary arterial disease. - stable without cardiac complaints - s/p CABG, follows with Dr. Womack - home propranolol on hold given soft bp 4. End-stage renal disease. - HD MWF - nephro consulted 5. Type 2 diabetes. - ISS. Home glipizide on hold 6. History of transient ischemic attack - no neuro complaints or deficits DVT ppx: heparin sc DISPO: pending clinical improvement. VS,Fishbone, I+O VS, Fishbone, I+O Laboratory Tests 10/04/19 06:24 Vital Signs Date Time Temp Pulse Resp B/P (MAP) Pulse Ox O2 Delivery O2 Flow Rate FiO2 10/04/19 06:00 99.4 63 17 109/64 (79) 99 Room Air I&O- Last 24 Hours up to 6 AM 10/04/19 06:00 Intake Total 1330 ml Output Total 350 ml Balance 980 ml GME ATTESTATION GME ATTESTATION My faculty preceptor for this patient encounter was physically present during the encounter and was fully available. All aspects of the patient interview, examination, medical decision making process, and medical care plan development were reviewed and approved by the faculty preceptor. The faculty preceptor is aware and concurs with the plan as stated in the body of this note and will attest to such by his/her cosignature. ATTENDING NOTE I, Janessa Armstrong, have independently examined this patient and performed my own physical exam, as well as reviewed the documentation and edited where necessary. I have discussed in detail with the resident / student the findings and plan of treatment as documented by the resident / student and edited their note. I agree with their findings and treatment plan and have edited their documentation. I will continue to follow the patient during this hospital stay. COLE LION DO Oct 04, 2019 10:41 JANESSA ARMSTRONG MD Oct 04, 2019 13:18
--- NOTE | 2019-10-04 11:47 | CR ---
DATE OF CONSULTATION: 10/03/2019 Asked to consult by Dr. Arriaga for evaluation of gram positive cocci in clusters, bacteremia in a patient with a left thigh abscess. HISTORY OF PRESENT ILLNESS: Mr. Tyson is a 69-year-old gentleman with a history of end-stage renal disease who was admitted yesterday due to a left thigh abscess. The patient states he has had an abscess in his left thigh for many months that he was trying to take care of on his own. He has a neighbor, Zo, who lives next to him, came to visit him, and saw the abscess, and made sure he came to the emergency room. He was hypotensive, had low-grade fever with mild lactic acidosis. The patient states he did not have fevers at home. He had no nausea, vomiting, or diarrhea. No abdominal pain. No chest pain or shortness of breath. No cough. He just stated that he had a thigh abscess that was progressively getting worse. He has no history of hip or valve replacement. No history of methicillin-resistant Staphylococcus aureus (MRSA). He was seen during dialysis and was doing well. The abscess of the left thigh was I and D'd at the bedside. His past medical history is significant for coronary artery disease status post coronary artery bypass graft (CABG), end-stage renal disease on hemodialysis for the past 3 years through a right arm AV fistula, insulin-dependent diabetes, history of cellulitis, history of transient ischemic attack (TIA) with left-sided paresthesias. SURGICAL HISTORY: Appendectomy, CABG, AV fistula placement of the right arm, venous grafting from his legs for his CABG. FAMILY HISTORY: Not relevant. SOCIAL HISTORY: He lost his in April and currently is a . He lives alone. He is very teary today when he talks about his . They had been 49 years. He does not smoke, drink, or use drugs. REVIEW OF SYSTEMS: He denies any fever, chills, headache. No chest pain. No shortness of breath. No neck stiffness. He states he had a small abrasion on his right foot, as well as an abscess on his left thigh. He had no nausea, vomiting. No urinary symptoms, neck pain, or back pain. ALLERGIES: No known drug allergies. MEDICATIONS: - Rozerem 8 mg by mouth nightly - vitamin D 50,000 units on Sunday - Aranesp 200 mcg with dialysis - pantoprazole 40 mg by mouth daily - Renvela 800 mg by mouth daily - vancomycin 1 gram intravenous (IV) with dialysis - tazobactam 4.5 unit IV every 12 hours - Tylenol as needed - Benadryl 25 mg by mouth as needed sleep - gabapentin 100 mg by mouth twice a day - insulin sliding scale - potassium chloride On physical examination, he is a healthy pleasant elderly gentleman in no acute distress. Maximum temperature (Tmax) 100.5, pulse 87, respirations 17, blood pressure 106/58, oxygen (O2) saturation 96% on room air. Neck is supple. No jugular venous distention (JVD). No carotid bruits. Heart: Normal S1, S2 with a holosystolic ejection murmur best heard at the left upper sternal border. No gallops or rubs. Lungs are clear. No wheezes, rales, or rhonchi. Abdomen: Soft, nontender. No hepatosplenomegaly. Extremities: Multiple skin scars and healing lesions, especially on his right foot, he has a small abrasion. He has no lower extremity edema. On the left thigh, he has an abscess measuring 8 cm x 6 cm with the two openings that have purulent discharge, tender to touch and warm. A very small abrasion on the dorsal aspect of the right foot measuring about 2 x 1 cm, not a source of infection. Neurologic examination: Normal. Oropharynx: No thrush with poor dentition. LABORATORIES: White count 6.7, hemoglobin 9.9, hematocrit 31.4, platelets 78. Sodium 134, potassium 4, chloride 95, bicarbonate 30, BUN 39, creatinine 7.05, glucose 178, calcium 7.8, magnesium 2.3. Lactic acid on admission was 2.7; today it was 1.3. Blood cultures positive on 10/02/2019 at 01:00 p.m. Two sets are gram positive cocci in clusters. Left thigh culture has no cells, no organisms seen. Culture is pending. Blood cultures have been repeated today, two sets. IMAGING: No imaging studies have been done. IMPRESSION: This is a 69-year-old gentleman with end-stage renal disease from diabetes who had an abscess of his left thigh for the past few months who was admitted with low-grade fever, mild hypotension, and a large abscess of the left thigh that has been I and D'd. He is clinically feeling well and does not have major complaints, but he was noted to have bacteremia which is very suggestive of Staphylococcus aureus. He has no previous history of MRSA. The abscess is draining well. The patient has a significant heart murmur, although he states that he has a previous history of heart murmur, but one also should rule out endocarditis. His AV fistula of his right arm does not seem infected. It is nontender to touch. The source of bacteremia is obviously his left thigh abscess, but one should rule out metastatic complication. PLAN: Repeated blood cultures have been done today, and make sure they are repeated until they are negative. Obtain erythrocyte sedimentation rate (ESR) and C-reactive protein (CRP). Continue with IV vancomycin. If culture is positive for methicillin-susceptible Staphylococcus aureus (MSSA), de-escalate therapy to nafcillin or cefazolin. Probably cefazolin would be much easier use for him with dialysis. It could be used after hemodialysis. Obtain echocardiogram transthoracic; and if the patient has elevated ESR, CRP, and persistent bacteremia, I would also obtain a transesophageal echocardiogram at some point next week to rule out endocarditis. Ideally, transesophageal echocardiogram (MOIZ) should not be done until 3-5 days after admission to make sure it has . Decrease the dose of tazobactam to 2.25 grams IV every 12 hours and de-escalation depend on results of culture from the thigh and blood cultures in the next 48 hours.
[2019-10-04 14:00] VITALS: BP 112/66
--- NOTE | 2019-10-04 15:22 | ECHO ---
DATE OF PROCEDURE: 10/04/2019 REFERRING PHYSICIAN: Dr. Janessa Armstrong. INDICATIONS: Sepsis. HEIGHT: 16 inches. WEIGHT: 112 kg. DIMENSIONS: IVS - 1.2 LV - 4.4 LVPW - 1.2 LA - 4.0 Aorta - 3.4 IVC - 1.9 Mitral E wave velocity - 85, A-wave - 118 E prime septal - 5.3 E prime lateral - 9.6 FINDINGS The study is of fair technical quality corresponding to patient's body habitus. The patient is in sinus rhythm. Left ventricle is normal size. Mild left ventricular hypertrophy is present. There appears to be hypokinesis on mid and distal septum but remaining left ventricle (LV) segment were reasonably well seen and appear to have normal contractility. I estimate overall ejection fraction (EF) around 55-60%. Right ventricle appears normal. Left atrium is at least mildly enlarged. Right atrium was poorly visualized but grossly appears normal. Aortic valve is tricuspid. It is heavily sclerotic and there is definite restriction of cusp mobility. By 2D imaging, I estimate at least moderate aortic stenosis. There are also degenerative abnormalities of mitral valve with mitral annular calcifications but mobility of leaflets is preserved. Tricuspid valve appears normal. Pulmonic valve was not well seen. No pericardial effusion is noted. Inferior vena cava is on upper limits of normal size and collapses with inspiration indicative of normal or mildly elevated central venous pressure. Aortic root is normal. Aortic arch and abdominal aorta were not well seen. Doppler interrogation of aortic valve reveals approximately moderate stenosis with peak gradient 15, mean gradient 30 and calculated aortic valve area 1.2 cm2. No insufficiency is noted. There is trace and trace tricuspid insufficiency. Quality of TR jet was not sufficient to estimate pulmonary artery pressure. Mitral inflow pattern and tissue Doppler imaging of mitral annulus reveal grade 1 diastolic dysfunction. CONCLUSIONS: 1. Study is of fair technical quality, the patient is in sinus rhythm. 2. Normal LV size with septal wall motion abnormality as noted above and overall low normal LV systolic function. Grade 1 diastolic dysfunction. 3. Tricuspid aortic valve that is heavily calcific resulting in moderate aortic stenosis (mean gradient 30 mmHg, calculated HARSHAD 1.2 cm2). 4. No further significant valvular disease. 5. Normal or mildly elevated central venous pressure. 6. Unable to estimate pulmonary artery pressure. COMMENT: Subacute bacterial endocarditis (SBE) prophylaxis is not recommended. MTDD
[2019-10-04] MEDS: **VANCO AFTER HD** MISC XX SCH (15:56)
[2019-10-04] MEDS: LACTOBACILLUS ACIDOPHILUS CAP (BACID) PO SCH (17:45)
[2019-10-04] MEDS: FIBER-CON 625 MG TAB PO SCH (17:47)
[2019-10-04] MEDS ORDERED: LACTOBACILLUS ACIDOPHILUS CAP (BACID) PO ONE (18:00)
[2019-10-04] MEDS ORDERED: FIBER-CON 625 MG TAB PO ONE (18:00)
[2019-10-04 22:00] VITALS: BP 106/62
[2019-10-05 06:00] VITALS: BP 109/65
[2019-10-05 07:09] LABS: BASO % 0.4 % (0.0-1.0); EOS # 0.1 10^3/uL (0.0-0.5); EOS % 2.7 % (0.0-3.0); HEMATOCRIT 31.8 % (42.0-52.0); HEMOGLOBIN 10.1 g/dl (13.5-17.5); LYMPH # 0.7 10^3/uL (1.5-5.0); LYMPH % 15.3 % (24.0-44.0); MEAN CORPUSCULAR HEMOGLOBIN 27.8 pg (27.0-33.0); MEAN CORPUSCULAR HGB CONC 31.8 g/dl (32.0-36.5); MEAN CORPUSCULAR VOLUME 87.6 fl (80.0-96.0); MONO # 0.4 10^3/uL (0.0-0.8); MONO % 7.9 % (0.0-5.0); NEUTROPHILS # 3.5 10^3/uL (1.5-8.5); NEUTROPHILS % 72.9 % (36.0-66.0); RED BLOOD COUNT 3.63 10^6/uL (4.30-6.10); WHITE BLOOD COUNT 4.8 10^3/uL (4.0-10.0)
[2019-10-05 07:29] LABS: CALCIUM LEVEL 8.2 MG/DL (8.8-10.2); CREATININE FOR GFR 6.91 MG/DL (0.70-1.30); GLOMERULAR FILTRATION RATE 8.4 (>42); MAGNESIUM LEVEL 2.2 MG/DL (1.8-2.4); POTASSIUM SERUM 3.8 MEQ/L (3.5-5.1)
[2019-10-05 07:31] LABS: PLATELET COUNT, AUTOMATED 88 10^3/uL (150-450)
[2019-10-05 08:20] LABS: C REACTIVE PROTEIN QUANTITATIV 7.33 MG/DL (0.00-0.30)
[2019-10-05] MEDS: LACTOBACILLUS ACIDOPHILUS CAP (BACID) PO SCH (08:40)
[2019-10-05] MEDS: (RENVELA) SEVELAMER **CARBONate** 800 MG TAB PO SCH (08:40)
[2019-10-05] MEDS: GABAPENTIN 100 MG CAP PO SCH (08:40)
[2019-10-05] MEDS: HumaLOG INSULIN (NovoLOG) PER UNIT SC SCH ×2 (08:40→12:40)
[2019-10-05] MEDS: PANTOPRAZOLE 40MG TAB (PROTONIX) PO SCH (08:40)
[2019-10-05] MEDS: FIBER-CON 625 MG TAB PO SCH (08:41)
--- NOTE | 2019-10-05 08:45 | IPN ---
DATE OF SERVICE: 10/04/2019 SUBJECTIVE: Kristopher was seen and examined this morning at the bedside. He denies any overnight events or complaints. He was dialyzed yesterday with only minimal fluid removal because of infection and hypotension of hemodialysis. He remains afebrile. Vital signs: Temperature 98.4, pulse 66, respiratory rate 17, blood pressure 112/66, saturating 99% on room air. Review of intake and output (I and O) yesterday shows net positive 1.7 liters. Weight in the bed scale today is not recorded. General: The patient is seen lying comfortably in bed, awake, alert, oriented times three, elderly male, no apparent distress, smiling, and in good spirits. Extraocular muscles are intact. Sclerae are anicteric. Tongue is moist. Neck is supple. Jugular veins are not elevated. Heart sounds are regular. There is trace leg edema. There is a systolic murmur. Respiratory: Lungs are clear to auscultation without crackle, rale, or rhonchus. Abdomen is soft and nontender. There are bowel sounds. There is a fistula present in the right upper extremity that is patent. Extremities: There is trace edema. There is a dressing over the left lateral thigh where he had the abscess that was drained. Skin: Normal temperature and turgor. Neurologic: Oriented times three, at baseline mentation. LABORATORIES: White count 6.5, hemoglobin 11.2, platelet 101. Sodium 135, potassium 4.3, bicarbonate 30, CRP 10.3. MICROBIOLOGY: Repeat blood cultures from 10/03/2019 show no growth after 24 hours times two sets. Initial blood cultures on 10/02/2019 grew gram-positive cocci in clusters. INPATIENT MEDICATIONS: Reviewed by me. He continues on renally dosed vancomycin and Zosyn. His heparin subcutaneous was discontinued. Insulin was adjusted by the primary team, and he was started on weekly vitamin D. Remainder medications are unchanged from prior. PROBLEMS: 1. End-stage renal disease. On hemodialysis on Sunday, Sunday, Sunday schedule. The patient was dialyzed yesterday with minimal fluid removal because of hypotension of hemodialysis likely due to the active bacteremia and infection. Electrolytes are acceptable. Next dialysis treatment will be on Sunday. Fistula is in good use. 2. Gram-positive cocci in clusters bacteremia, likely related to the abscess in the left thigh. His repeat cultures from 10/03/2019 show no growth. Echocardiogram is noted along with infectious diseases' recommendations. He is on renally dosed vancomycin and Zosyn. 3. Hypertension. Blood pressures have been running lower than his usual baseline. He did have some hypotension of hemodialysis during his treatment on Sunday. His home beta nedra has appropriately been held. Systolic today is improved as compared to yesterday. 4. Anemia of chronic renal failure. Hemoglobin is optimal at present, and Aranesp will be resumed when indicated. Would keep him off of intravenous (IV) iron in view of bacteremia.
--- NOTE | 2019-10-05 10:01 | PHACANCOPD ---
PHARMACY VANCOMYCIN DOSING Pt Demographics Demographics Patient Age:69 , Weight:111.600 , Gender: male Adjusted Body Weight Date: 10/02/19, Adjusted Body Weight: Kg Vancomycin Vancomycin indication: SEPSIS Vancomycin Target Ranges: 15-20 mcg/ml Vancomycin Load Y/N: Yes Load Dose Date Time Vancomycin Load Dose: 2 gram total, 1 gram in ED @2000, 1gm scheduled for 2100 Date: 10/02/19 Time: Vancomycin Dose Date: 10/02/19. Current Vancomycin Dose: [ Intermittent vancomycin after hemodialysis ] Intermittent Dosing?: Yes Labs Micro Microbiology 10/03/19 Blood Culture - Preliminary, Resulted No growth after 24 hours . All specim... 10/03/19 Blood Culture - Preliminary, Resulted No growth after 24 hours . All specim... 10/02/19 Blood Culture - Final, Complete Staphylococcus Epidermidis 10/02/19 Blood Culture - Final, Complete Staphylococcus Epidermidis 10/02/19 Gram Stain - Final, Complete 10/02/19 Wound Culture - Final, Complete Staphylococcus Epidermidis Creatinine Clearance Date:10/02/19. Creatinine Clearance: [ 11 mL/min ]. Assessment and Plan Maintaining Current Dose?: Yes Reason for dose change: No Dose Change Pharmacist Note Pharmacist Note 10/05/19: Pre-HD random vancomycin level on 10/03 was therapeutic at 20.8 mcg/ml, and patient was re-dosed with 1g post-HD on 10/03. 3/5 blood cultures are now growing staphylococcus epidermidis, with repeat blood cultures no growth to date. Will continue to dose patient by level post-HD Sunday, Sunday, Sunday. Next dialysis session scheduled for Sunday10/06/19. Follow-up pre-HD random vancomycin level has been scheduled to be drawn with AM labs tomorrow morning. We will continue to monitor and re-dose as appropriate. Date: 10/02/19. Pharmacist note: Mr. Tyson is a 69-year-old man who presented to the emergency department for an abscess on his left hip. This abscess was drained in the emergency department and upon further investigation he was found to have hypotension and elevated lactic acid. He was placed on broad-spectrum antibiotics consisting of Zosyn 4.5 grams every 12 hours and vancomycin. He has end-stage renal disease currently managed by hemodialysis thrice weekly on Sunday, Sunday, and Sunday. A 2 gram loading dose was scheduled for him, with subsequent doses based upon morning vancomycin trough levels prior to hemodialysis. His goal vancomycin trough is between 15-20 mcg/dL. A random vancomycin level was scheduled for tomorrow morning @0600. We will continue to monitor and make adjustments as needed. RAMANA GOMEZ PHARMACY Oct 05, 2019 10:01
[2019-10-05] MEDS ORDERED: VANC1INJ IV (10:11)
--- NOTE | 2019-10-05 11:55 | DS.PDOC ---
Discharge Summary General Date of Admission Oct 02, 2019 at 19:53 Date of Discharge 10/05/2019 Discharge Summary PROCEDURES PERFORMED DURING STAY: I&D 10/03: Completed in ER for left thigh/gluteal abscess ADMITTING DIAGNOSES / DISCHARGE DIAGNOSES: Abscess of left thigh - 2/2 staph epidermidis Bacteremia likely 2/2 abscess - 2/2 staph epidermidis Hypotension - likely 2/2 bacteremia Lactic acidosis Normocytic anemia Hyponatremia (mild) likely 2/2 ESRD Coronary arterial disease ESRD on HD (MWF) IDDM2 Hx of TIA DVT prophylaxis COMPLICATIONS/CHIEF COMPLAINT: Left gluteal abscess / Fevers HISTORY OF PRESENT ILLNESS / HOSPITAL COURSE: Patient is a 69-year-old male with a past medical history of coronary artery disease s/p CABG, DM2, ESRD on HD ([facility]), who presented to the emergency room with complaints of left hip warmth, tenderness and swelling. Emergency room, patient was found to have an abscess of his left hip and was incised and drained in the emergency room, patient was subsequently admitted to the hospital service for further evaluation and treatment. Throughout hospital course patient had blood cultures drawn which were positive for gram-positive cocci that ultimately grew out staph epidermidis. Initially, patient was hypotensive with lactic acidosis. This is resolved after receiving IV fluid hydration and broad-spectrum antibiotics with vancomycin and Zosyn. Transthoracic echocardiogram was completed that was negative for any evidence of vegetations. Weekly blood cultures were negative over 24 hours. Case is discussed with nephrology and infectious disease. Patient will continue to receive vancomycin post-hemodialysis. Patient has work with physical therapy and they note that he is at his baseline. He has been cleared for discharge home with outpatient follow-up with nephrology and infectious disease within 7 days. DISCHARGE MEDICATIONS: Please see below. ALLERGIES: Please see below. PHYSICAL EXAMINATION ON DISCHARGE: Vitals (See below) General: Lying in bed, no acute distress, comfortable, AAOx3 HEENT: NC, AT CVS: +S1S2 Lungs: Fair air entry b/l, -w/r/r Abdomen: Soft, ND, NT Extremities: - Edema, - Calf tenderness Skin: Left thigh - dressing removed; incision noted; appears clean / continues to drain, no significant erythema / warmth / tenderness LABORATORY DATA: Please see below. IMAGING: CXR 10/03: No focal consolidation or effusion. ACTIVITY: [As tolerated]. DISCHARGE PLAN: Follow-up with Dr. Mayorga and Dr. Zamarripa within 7 days Remain compliant with treatment plan and medications Return to the ER if you experience any problems DISPOSITION: Home with services; wound care / dressing changes DISCHARGE CONDITION: [Stable]. TIME SPENT ON DISCHARGE: 35 minutes Vital Signs/I&Os Vital Signs Date Time Temp Pulse Resp B/P (MAP) Pulse Ox O2 Delivery O2 Flow Rate FiO2 10/05/19 06:00 98.4 86 15 109/65 (80) 98 Room Air I&O- Last 24 Hours up to 6 AM 10/05/19 06:00 Intake Total 1220 ml Output Total 350 ml Balance 870 ml Laboratory Data Labs 24H Laboratory Tests 2 10/04/19 12:15: Bedside Glucose (Misc Panel) 207H 10/04/19 16:59: Bedside Glucose (Misc Panel) 221H 10/04/19 21:14: Bedside Glucose (Misc Panel) 212H 10/05/19 06:25: Immature Granulocyte % (Auto) 0.8, Neutrophils (%) (Auto) 72.9H, Lymphocytes (%) (Auto) 15.3L, Monocytes (%) (Auto) 7.9H, Eosinophils (%) (Auto) 2.7, Basophils (%) (Auto) 0.4, Neutrophils # (Auto) 3.5, Lymphocytes # (Auto) 0.7L, Monocytes # (Auto) 0.4, Eosinophils # (Auto) 0.1, Basophils # (Auto) 0.0, Nucleated Red Blood Cells % (auto) 0.0, Immature Platelet Fraction 1.2, Anion Gap 7L, Glomerular Filtration Rate 8.4L, Calcium Level 8.2L, Magnesium Level 2.2, C- Reactive Protein, Quantitative 7.33H 10/05/19 11:39: Bedside Glucose (Misc Panel) 198H CBC/BMP Laboratory Tests 10/05/19 06:25 FSBS Laboratory Tests Test 10/04/19 12:15 10/04/19 16:59 10/04/19 21:14 10/05/19 11:39 Range/Units Bedside Glucose (Misc Panel) 207 221 212 198 83-110 MG/DL Microbiology Microbiology 10/03/19 Blood Culture - Preliminary, Resulted No growth after 24 hours . All specim... 10/03/19 Blood Culture - Preliminary, Resulted No growth after 24 hours . All specim... 10/02/19 Blood Culture - Final, Complete Staphylococcus Epidermidis 10/02/19 Blood Culture - Final, Complete Staphylococcus Epidermidis 10/02/19 Gram Stain - Final, Complete 10/02/19 Wound Culture - Final, Complete Staphylococcus Epidermidis Discharge Medications Scheduled Cinnamon Bark (Cinnamon) 500 Mg Capsule, 500 MG PO DAILY, (Reported) Ergocalciferol (Vitamin D2) (Vitamin D2) 50,000 Units Cap, 50,000 UNITS PO 1XWK, (Reported) SATURDAYS Folic Acid/Vit B Complex and C (Adela-Liza Tablet) 1 Tab Tab, 1 TAB PO DAILY, (Reported) Gabapentin (Gabapentin) 100 Mg Capsule, 100 MG PO BID, (Reported) Glipizide (Glipizide ER) 5 Mg Tab.er.24, 5 MG PO BID, (Reported) 2ND DOSE WITH DINNER Pantoprazole Sodium (Pantoprazole Sodium) 40 Mg Tablet.dr, 40 MG PO DAILY, (Rep orted) Propranolol HCl (Propranolol HCl) 10 Mg Tab, 5 MG PO DAILY, (Reported) Propranolol HCl (Propranolol HCl) 10 Mg Tab, 10 MG PO QHS, (Reported) Sevelamer Carbonate (Sevelamer Carbonate) 800 Mg Tablet, 800 MG PO DAILY, (Reported) Sodium Polystyrene Sulfonate (Sps 15 gm/60 ml Suspension) 15 Gm/60 Ml Oral.susp, 15 GM PO ASDIRECTED, (Reported) Vancomycin HCl in 5 % Dextrose (Vancomycin 1 Gram/100 ml-D5w) 1 Gm/100 Ml Plast..bag, 1 INJ IV ASDIRECTED Post HD for 2 weeks duration Scheduled PRN Acetaminophen (Acetaminophen ER) 650 Mg Tablet.er, 650 MG PO TID PRN for FEVER, (Reported) Diphenhydramine HCl (Diphenhydramine HCl) 25 Mg Capsule, 25 MG PO QHS PRN for SLEEP, (Reported) Allergies Coded Allergies: No Known Allergies (Unverified , 09/10/18) SANCHEZ JIMENEZ MD Oct 05, 2019 11:55
[2019-10-05 14:00] VITALS: BP 112/60
--- NOTE | 2019-10-06 18:10 | IPN ---
DATE: 10/05/2019 SUBJECTIVE: Kristopher is seen and examined this morning at the bedside. He denies any overnight events or complaints. His repeat blood cultures have been negative. He is likely for discharge today if cleared by infectious diseases. Vital signs: Temperature 98.0, pulse 82, respiratory rate 16, blood pressure 112/60, saturating 99% on room air. Intake yesterday was 1160, urine output was not recorded. There were four voids recorded. Weight in bed scale today is not recorded. General: The patient is seen lying in bed, elderly male, awake, alert, oriented, conversational, no apparent distress. Extraocular muscles are intact. Tongue is moist. Ear, nose and throat are unremarkable. Neck is supple. Jugular veins are not elevated. Heart sounds are regular, S1, S2. There is no edema in the peripheries. Lungs are clear to auscultation bilaterally. No crackle, rale or rhonchus. Abdomen is soft and nontender. There are bowel sounds. Dialysis access: There is a fistula in the right upper arm which is patent with thrill and bruit. Extremities are negative for edema. There is a dressing over the left lateral thigh with some serosanguineous discharge. Neurologic: He is oriented times three, at baseline mentation. No focal deficit. LABORATORY DATA: White count 4.8, hemoglobin 10.1, platelet 88, sodium 135, potassium 3.8, magnesium 2.2, CRP 7.3. Blood cultures 10/03/2019 no growth times 48 hours for two sets and blood cultures 10/02/2019 grew Staphylococcus epidermidis. Wound culture from the left thigh also grew Staphylococcus epidermis. INPATIENT MEDICATIONS: He continues on renally dosed vancomycin. His remainder of medications are unchanged from prior. PROBLEMS: 1. End-stage renal disease on hemodialysis on a Sunday, Sunday, Sunday schedule. Next dialysis will be on Sunday, likely as an outpatient if cleared by infectious disease. We will set him up to receive vancomycin post dialysis in the outpatient setting for his Staphylococcus epidermidis bacteremia. He is well dialyzed with acceptable fluid status and electrolytes. 2. Left thigh abscess. Wound culture grew Staphylococcus epidermis. Blood cultures on 10/02/2019 grew the same. His repeat blood cultures from 10/03/2019 are negative. He continues on renally dosed vancomycin and is followed by infectious disease and can likely complete the course of antibiotics in the outpatient setting through the hemodialysis unit. 3. Hypertension. Blood pressures are acceptable and have improved over the course of this admission. No changes are being made today. 4. Anemia of chronic renal failure. Hemoglobin is optimal and he will continue with erythropoietin in the outpatient hemodialysis unit.
[2020-10-02] MEDS ORDERED: RAMELTEON 8 MG TAB (ROZEREM) PO SCH (21:00)
== END 2019-10-05 14:58 | disposition home health service (06) | DRG 602 ==
LOC: M ED 11:18 → M ED INP 19:53 → ENRESERV 21:10 → M MSPAV 21:55
PROVIDERS: ADMIT Internal Medicine; ATTEND Internal Medicine
PROC: 0H9JXZZ Drainage of Left Upper Leg Skin, External Approach (ICD-10-PCS; 2019-10-02)
PROC: 5A1D70Z Performance of Urinary Filtration, Intermittent, Less than 6 Hours Per Day (ICD-10-PCS; principal; 2019-10-03)
DX: L02.416 Cutaneous abscess of left lower limb (principal); N18.6 End stage renal disease; R78.81 Bacteremia; E87.2 Acidosis; E87.1 Hypo-osmolality and hyponatremia; B95.7 Other staphylococcus as the cause of diseases classified elsewhere; I95.9 Hypotension, unspecified; I25.10 Atherosclerotic heart disease of native coronary artery without angina pectoris; Z99.2 Dependence on renal dialysis; Z86.73 Personal history of transient ischemic attack (TIA), and cerebral infarction without residual deficits; Z95.5 Presence of coronary angioplasty implant and graft; E11.22 Type 2 diabetes mellitus with diabetic chronic kidney disease; Z79.899 Other long term (current) drug therapy; D63.1 Anemia in chronic kidney disease; E11.628 Type 2 diabetes mellitus with other skin complications

== ENCOUNTER 2019-12-01 19:28 | Inpatient (IN) | payer MEDICARE, BC, OTHER ==
[~2019-12-01] VITALS: Ht 172.7 cm; Wt 113.2 kg
[~2019-12-01 19:28] MED LIST changes: +GABA-1171 PO; +GLIP5TAB20 PO; +VANC1INJ IV
--- NOTE | 2019-12-01 20:30 | REPVR ---
PROCEDURE INFORMATION: Exam: CT Head Without Contrast Exam date and time: 12/01/2019 8:10 PM Age: 69 years old Clinical indication: Altered mental status/memory loss TECHNIQUE: Imaging protocol: Computed tomography of the head without contrast. Radiation optimization: All CT scans at this facility use at least one of these dose optimization techniques: automated exposure control; mA and/or kV adjustment per patient size (includes targeted exams where dose is matched to clinical indication); or iterative reconstruction. COMPARISON: No relevant prior studies available. FINDINGS: Brain: There is [id number] age-related parenchymal volume loss. Mild white matter changes are demonstrated matter consistent with age related small vessel white matter angiopathic gliosis. Diffuse cerebellar atrophy. Ventricles: The degree of ventricular dilatation is normal for age and/or degree of atrophy present. Bones/joints: Unremarkable. No acute fracture. Sinuses: Visualized sinuses are unremarkable. No fluid levels. Mastoid air cells: Visualized mastoid air cells are well aerated. Soft tissues: Unremarkable. Vasculature: Atherosclerotic calcifications in the intracranial carotid arteries and vertebral basilar system. IMPRESSION: 1. There is [id number] age-related parenchymal volume loss. Mild white matter changes are demonstrated matter consistent with age related small vessel white matter angiopathic gliosis. 2. The degree of ventricular dilatation is normal for age and/or degree of atrophy present. 3. Diffuse cerebellar atrophy. 4. No acute findings. Electronically signed by: Cesar Whitten On 12/01/2019 20:30:19 PM
[2019-12-01 20:38] LABS: BASO % 1.3 % (0.0-1.0); EOS % 1.3 % (0.0-3.0); HEMATOCRIT 34.3 % (42.0-52.0); HEMOGLOBIN 11.7 g/dl (13.5-17.5); LYMPH # 0.8 10^3/uL (1.5-5.0); LYMPH % 24.8 % (24.0-44.0); MEAN CORPUSCULAR HEMOGLOBIN 29.7 pg (27.0-33.0); MEAN CORPUSCULAR HGB CONC 34.1 g/dl (32.0-36.5); MEAN CORPUSCULAR VOLUME 87.1 fl (80.0-96.0); MONO # 0.3 10^3/uL (0.0-0.8); MONO % 10.5 % (0.0-5.0); NEUTROPHILS % 62.1 % (36.0-66.0); PLATELET COUNT, AUTOMATED 105 10^3/uL (150-450); RED BLOOD COUNT 3.94 10^6/uL (4.30-6.10); WHITE BLOOD COUNT 3.2 10^3/uL (4.0-10.0)
[2019-12-01 20:57] LABS: OSMOLALITY SERUM 289 MOSM/KG (280-301)
[2019-12-01 21:20] LABS: ALBUMIN 3.1 GM/DL (3.2-5.2); ALT/SGPT 33 U/L (12-78); BILIRUBIN,DIRECT 0.2 MG/DL (0.0-0.2); BILIRUBIN,TOTAL 0.7 MG/DL (0.2-1.0); BLOOD UREA NITROGEN 18 MG/DL (7-18); CALCIUM LEVEL 8.5 MG/DL (8.8-10.2); CARBON DIOXIDE LEVEL 32 MEQ/L (21-32); CHLORIDE LEVEL 95 MEQ/L (98-107); CK-MB VALUE MASS 3.8 NG/ML (<3.6); CPK CREATINE PHOSPHOKINASE 235 U/L (39-308); CREATININE FOR GFR 4.18 MG/DL (0.70-1.30); GLOMERULAR FILTRATION RATE 15.1 (>42); GLUCOSE, FASTING 119 MG/DL (70-100); MB/CK RELATIVE INDEX 1.62 (< OR =4); POTASSIUM SERUM 3.4 MEQ/L (3.5-5.1); SODIUM LEVEL 136 MEQ/L (136-145); TROPONIN I < 0.02 NG/ML (< 0.10)
[2019-12-01 22:23] LABS: INR 1.18; PROTHROMBIN TIME 14.7 SECONDS (11.8-14.0)
[2019-12-01 22:24] LABS: PARTIAL THROMBOPLASTIN TIME 35.4 SECONDS (25.0-38.4)
--- NOTE | 2019-12-01 22:46 | REPVR ---
PROCEDURE INFORMATION: Exam: US Abdomen Limited, Right Upper Quadrant Exam date and time: 12/01/2019 10:36 PM Age: 69 years old Clinical indication: Abnormal findings; Abnormal lab test; Elevated liver enzymes; Other: AMS; Additional info: Elevated alk phos; Ammonia; AMS TECHNIQUE: Imaging protocol: Real-time ultrasound of the abdomen with image documentation. Examination was focused on the right upper quadrant. COMPARISON: Abdomen, limited US 09/04/2019 7:18 AM FINDINGS: Liver: The liver is heterogeneously echogenic relative to the right kidney, findings consistent with steatosis. Gallbladder: Normal. No gallstones. There is no gallbladder wall thickening. Common bile duct: The common bile duct measures 5.6 mm. No mass or choledocholithiasis. Pancreas: Visualized pancreas is unremarkable. Right kidney: Right kidney measures 15.3 x 5.8 x 7.1 cm. IMPRESSION: 1. Hepatic steatosis. 2. Normal gallbladder. No biliary dilatation. Electronically signed by: Cesar Whitten On 12/01/2019 22:45:42 PM
[2019-12-01] MEDS ORDERED: ACETAMINOPHEN TAB 650MG DOSE (2X325MG) PO PRN (23:15)
[2019-12-01] MEDS ORDERED: LACTULOSE 20 GM/30 ML SYRUP UD PO ONE (23:15)
--- NOTE | 2019-12-01 23:16 | HPEPDOC ---
[facility] Medical History & Physical Date of Admission Dec 01, 2019 Date of Service: Dec 01, 2019 Attending Physician: TOY QUAN MD History and Physical TIME OF SERVICE: 11:35 AM CHIEF COMPLAINT: HISTORY OF PRESENT ILLNESS: The majority of history was obtained from Joaquin Hanna. The patient was not able to articulate why he came to the hospital. This 72-year-old, was sent from his dialysis unit for evaluation of confusion after finishing his 3 hour session of hemodialysis around 6:30PM. When EMS evaluated him, he knew his name, home address and was able to name president was but was unable to name the month or the year. The patient reported having episodes of hypotension during dialysis, but reports being asymptomatic. He denies having chest pain, headache, blurry vision, nausea, vomiting, diarrhea, joint pain, or any other acute complaints at this time. In the ER, his ammonia was noted to be elevated; he received lactulose and had a bowel movement. REVIEW OF SYSTEMS: 12 point review of systems negative except as listed in HPI PAST MEDICAL/ SURGICAL HISTORY: ESRD via right upper extremity fistula (MWF) History of left thigh abscess and staph epidermidis bacteremia Sep 2019 CAD/CABG IDDM TIA with residual left-sided paresthesia Newly diagnosed Fatty liver Class II obesity History of Esophageal varices History of nonbleeding duodenal ulcer Appendectomy Right third Toe Amputation to manage osteomyelitis Left eye cataract surgery Resection of sessile colonic polyps Left medial meniscal tear managed with with partial medial meniscectomy of the posterior horn of the medial meniscus Grade 2 chondromalacia of the medial femoral condyle managed with chondroplasty of the medial femoral condyle History of right pleural effusion requiring right-sided chest tube placement SOCIAL HISTORY: Doesn't smoke Doesn't drink Is a FAMILY HISTORY: Diabetes Cancer ALLERGIES: Please see below. HOME MEDICATIONS: Please see below. PHYSICAL EXAMINATION: Vital Signs Date Time Temp Pulse Resp B/P (MAP) Pulse Ox O2 Delivery O2 Flow Rate FiO2 12/01/19 19:43 97.8 98 16 131/66 (87) 99 Room Air GEN: well-nourished / well developed/ NAD INTEGUMENT: not flushed/ not jaundice / well-healed post sternotomy scar HEENT: NCAT / is mild conjunctival injection CVS: RRR/NMRG LUNGS: lungs are clear to auscultation bilaterally on room air ABDOMEN: Contour (obese) / soft & not tender with palpation MSK/EXTREMITIES: range of motion intact in all 4 extremities NEURO: CN 2-12 are grossly intact / speech is not dysarthric PSYCH: alert and oriented to person place and time/ able to understand and follow all commands LABORATORY DATA: Immature Granulocyte % (Auto) 0.0, Neutrophils (%) (Auto) 62.1, Lymphocytes (%) (Auto) 24.8, Monocytes (%) (Auto) 10.5H, Eosinophils (%) (Auto) 1.3, Basophils (%) (Auto) 1.3H, Neutrophils # (Auto) 2.0, Lymphocytes # (Auto) 0.8L, Monocytes # (Auto) 0.3, Eosinophils # (Auto) 0.0, Basophils # (Auto) 0.0, Nucleated Red Blood Cells % (auto) 0.0, Anion Gap 9, Glomerular Filtration Rate 15.1L, Osmolality 289, Lactic Acid Level 1.7, Calcium Level 8.5L, Total Bilirubin 0.7, Direct Bilirubin 0.2, Aspartate Amino Transf (AST/SGOT) 45H, Alanine Aminotransferase (ALT/SGPT) 33, Alkaline Phosphatase 140H, Ammonia 80H, Total Creatine Kinase 235, Creatine Kinase MB 3.8H, Creatine Kinase MB Relative Index 1.62, Troponin I < 0.02, Total Protein 8.0, Albumin 3.1L, Albumin/Globulin Ratio 0.63L, Thyroid Stimulating Hormone (TSH) 2.600 Prothrombin Time 14.7H, Prothromb Time International Ratio 1.18, Activated Partial Thromboplast Time 35.4 IMAGING: CT of the head " IMPRESSION: 1. There is [id number] age-related parenchymal volume loss. Mild white matter changes are demonstrated matter consistent with age related small vessel white matter angiopathic gliosis. 2. The degree of ventricular dilatation is normal for age and/or degree of atrophy present. 3. Diffuse cerebellar atrophy. 4. No acute findings. " Chest x-ray (personally visualization) shows posy-sternotomy wires and pulmonary vascular congestion at the lung bases when compared to the previous x-ray on 10/03/19, but the final read is pending Ultrasound of the gallbladder "IMPRESSION: 1. Hepatic steatosis. 2. Normal gallbladder. No biliary dilatation. " MICROBIOLOGY 12/01/19 Blood Culture, Received Pending 12/01/19 Blood Culture, Received Pending ASSESSMENT: Mr. Tyson is a 69-year-old with a history of ESRD, NIDDM, CAD/CABG, TIA, fatty liver, obesity, and multiple surgeries, who is admitted for evaluation of hepatic encephalopathy & SIRS both of who's cause are TBD. PLAN: 1. Overt Hepatic Encephalopathy 2/2 Liver Failure His ammonia is elevated. Based on his symptoms he has grade 1 hepatic encephalopathy. The hepatic encephalopathy may have been triggered by infection or SBP (less likely as there was no mention of ascites on the liver US). The underlying cause of his liver failure is currently not clear; his Hep A & C tests were neg in 2016. His Hep B ab was present in 2018. It is unlikely that he has [place] because of his hx of low iron. Despite a Child-Nicole Score of 6 /Class A, his his MELD (New) Score, which may be more more accurate, is 23 which predicts that his 3 month estimated mortality is 19.6%. 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 to discuss if he needs transfer, in the meanwhile we will repeat Hep A&C, check GGT and trend LFTs, Coags his corresponding MELD (New) Score 2. SIRS Source TBD. Suspect bacteremia (which he had in Sep 2019) or SBP? SIRS criterial include: HR >90 / WBC <4 Lactic acid is wnl QSOFA score = 1 (AMS) = not high risk Plan: Sepsis protocol / empiric Meropenum and Zyvox pending blood cx & UA/ f/u final chest xray report / Acetaminophen PRN for fever 3. Chronic NN Anemia. Likely ACD. Hg is at baseline - f/u CBC 4. Chronic Thrombocytopenia. Likely 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. - f/u CBC 5. Esophageal Varices - propranolol 6. ESRD - f/u Is and Os & daily weights / Nephro consult / sevelamer & Kayexalate 7. NIDDM - f/u accuchecks & A1C / hypoglycemia protocol / sliding scale insulin / hold oral anti-glycemics / c/w gabapentin possibly for neuropathy 8. CAD/CABG, TIA - not on ASA possibly bc of hx of bleeding ? / not on statin possibly bc of liver failure ? 9. Class 2 Obestiy w BMI of 37 and co-existing DM complicates care - f/u A1C / he can f/u w his or her PCP for STOP BANG questionnaire, toy maker consult on an out patient basis DVT PROPHYLAXIS: SCDs DISPOSITION: home after more than 2 midnight's stay Home Medications Scheduled Cinnamon Bark (Cinnamon) 500 Mg Capsule, 500 MG PO DAILY Ergocalciferol (Vitamin D2) (Vitamin D2) 50,000 Units Cap, 50,000 UNITS PO 1XWK SATURDAYS Folic Acid/Vit B Complex and C (Adela-Liza Tablet) 1 Tab Tab, 1 TAB PO DAILY Gabapentin (Gabapentin) 100 Mg Capsule, 100 MG PO BID Glipizide (Glipizide ER) 5 Mg Tab.er.24, 5 MG PO BID 2ND DOSE WITH DINNER Pantoprazole Sodium (Pantoprazole Sodium) 40 Mg Tablet.dr, 40 MG PO DAILY Propranolol HCl (Propranolol HCl) 10 Mg Tab, 5 MG PO DAILY Propranolol HCl (Propranolol HCl) 10 Mg Tab, 10 MG PO QHS Sevelamer Carbonate (Sevelamer Carbonate) 800 Mg Tablet, 800 MG PO QPM @ 1700 Sodium Polystyrene Sulfonate (Sps 15 gm/60 ml Suspension) 15 Gm/60 Ml Oral.susp, 15 GM PO ASDIRECTED Scheduled PRN Acetaminophen (Acetaminophen ER) 650 Mg Tablet.er, 650 MG PO TID PRN for FEVER Diphenhydramine HCl (Diphenhydramine HCl) 25 Mg Capsule, 25 MG PO QHS PRN for SLEEP Miscellaneous Medications [Comments] EXTERNAL MED HISTORY AND DISCHARGE ON 10/05 USED TO COMPLETE MED REC. Allergies Coded Allergies: No Known Allergies (Unverified , 09/10/18) A-FIB/CHADSVASC A-FIB History Current/History of A-Fib/PAF?: No Current PO Anticoag Therapy: No TOY QUAN MD Dec 01, 2019 23:16
[2019-12-01] MEDS ORDERED: COMMENTS (23:45)
[2019-12-02 01:05] VITALS: BP 136/74
[2019-12-02] MEDS ORDERED: GLUCOSE 4 GM CHEW TABLET PO PRN (01:45)
[2019-12-02] MEDS ORDERED: GLUCAGON FOR INJ 1 MG VIAL (J1610) SC PRN (01:45)
[2019-12-02] MEDS ORDERED: DEXTROSE 50% 50 ML SYRINGE IV PRN (01:45)
[2019-12-02] MEDS ORDERED: SOD POLYSTYRENE SULFONATE SUSP 15 GM/60 ML UD PO SCH (01:45)
[2019-12-02] MEDS ORDERED: MEROPENEM INJ 1 GM in IV 1 EA IV SCH (01:45)
--- NOTE | 2019-12-02 02:41 | REP ---
Clinical: Chest pain with altered mental status . Comparison: 10/03/2019 . Findings: The mediastinum and cardiac silhouette are stable and within normal limits for portable technique. Evidence of prior sternotomy and subtle right basilar chronic changes noted. The lung bruno are clear without acute consolidation, effusion, or pneumothorax. Skeletal structures are intact. Impression: No acute cardiopulmonary process appreciated. Electronically Signed by Alexandre Woody MD 12/02/2019 02:32 A
[2019-12-02] MEDS ORDERED: PILL CUTTER 1 EACH XX PRN (02:45)
[2019-12-02 03:34] LABS: HEMOGLOBIN A1c 7.4 %
[2019-12-02 04:00] VITALS: BP 105/57
[2019-12-02] MEDS ORDERED: MEROPENEM INJ 500 MG in IV 1 EA IV SCH (04:00)
[2019-12-02] MEDS ORDERED: LINEZOLID 600 MG in IV 1 EA IV SCH (05:00)
[2019-12-02 06:13] LABS: HEMATOCRIT 32.3 % (42.0-52.0); HEMOGLOBIN 10.3 g/dl (13.5-17.5); MEAN CORPUSCULAR HEMOGLOBIN 28.4 pg (27.0-33.0); MEAN CORPUSCULAR HGB CONC 31.9 g/dl (32.0-36.5); RED BLOOD COUNT 3.63 10^6/uL (4.30-6.10); WHITE BLOOD COUNT 2.7 10^3/uL (4.0-10.0)
[2019-12-02 06:22] LABS: INR 1.27; PROTHROMBIN TIME 15.6 SECONDS (11.8-14.0)
[2019-12-02 06:23] LABS: PLATELET COUNT, AUTOMATED 87 10^3/uL (150-450)
[2019-12-02 06:29] LABS: ALBUMIN 2.8 GM/DL (3.2-5.2); BILIRUBIN,TOTAL 0.7 MG/DL (0.2-1.0); CREATININE FOR GFR 5.31 MG/DL (0.70-1.30); GLOMERULAR FILTRATION RATE 11.4 (>42); POTASSIUM SERUM 3.6 MEQ/L (3.5-5.1); TOTAL PROTEIN 7.3 GM/DL (6.4-8.2)
[2019-12-02] MEDS: LACTULOSE 20 GM/30 ML SYRUP UD PO SCH ×3 (06:47→21:08)
[2019-12-02 08:00] VITALS: BP 102/57
[2019-12-02] MEDS: PROPRANOLOL 10 MG TAB PO SCH (08:27)
[2019-12-02] MEDS: GABAPENTIN 100 MG CAP PO SCH ×2 (08:28→21:03)
[2019-12-02] MEDS: DOCUSATE SODIUM 100 MG CAP PO SCH ×2 (08:28→21:00)
[2019-12-02] MEDS: HumaLOG INSULIN (NovoLOG) PER UNIT SC SCH ×3 (08:29→17:03)
--- NOTE | 2019-12-02 09:15 | ECGEPIP ---
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
[2019-12-02 12:00] VITALS: BP 109/72
[2019-12-02] MEDS ORDERED: LevoFLOXacin 750 MG TABLET PO ONE (12:00)
[2019-12-02] MEDS ORDERED: DARBEPOETIN 200MCG/0.4ML *DIALYSIS* SYRINGE (J0882 PER 1MCG) IV SCH (13:00)
--- NOTE | 2019-12-02 13:32 | CR ---
DATE OF CONSULTATION: 12/02/2019 REQUESTING PHYSICIAN: Dr. Lopez Licona CONSULTING PHYSICIAN: Dr. Gonzalez REASON FOR CONSULTATION: Management of end-stage renal disease on hemodialysis. CHIEF COMPLAINT: The patient was sent from dialysis center yesterday because of confusion during dialysis and hypotension. HISTORY OF PRESENT ILLNESS: Mr. Kristopher Tyson is a 69-year-old male with past medical history of end-stage renal disease on hemodialysis every Sunday, Sunday, Sunday, history of MRSA abscess in the thigh requiring recent hospitalization about 2 months ago, insulin dependent diabetic, multiple other comorbidities as mentioned below. He came for his regular dialysis yesterday. However, he was found to be confused at dialysis center. He was advised to go to the emergency room. At that time, he refused. However, he got about 3 hours of dialysis and his confusion got worse and because of the risk of a possible stroke Emergency Medical Services (EMS) was called and patient brought to the emergency room. Further evaluation in the emergency room showed the patient had pancytopenia. He also had elevated ammonia levels. So, he was admitted under the hospitalist service yesterday with hepatic encephalopathy and systemic inflammatory response syndrome. Nephrology service was called for further help in the management of this patient and management of his end-stage renal disease. I saw and evaluated the patient today morning at the bedside. He was actually sitting in the sofa. Her reports that he is feeling better today as compared with yesterday with all the medications that he has received. He denies any active complaints apart from being slow to respond, and he does report history of cirrhosis and he follows up with GI. PAST MEDICAL HISTORY: Past medical history of end-stage renal disease on hemodialysis every Sunday, Sunday, Sunday, recent history of a left thigh abscess with staph epi bacteremia in September 2019, history of coronary artery disease, diabetes mellitus, type 2, insulin dependent, transient ischemic attack (TIA) with residual left-sided paresthesia in the past, liver cirrhosis, which is newly diagnosed, along with esophageal varices. PAST SURGICAL HISTORY: Status post coronary artery bypass grafting, status post right forearm arteriovenous (AV) fistula placement, history of right 3rd toe amputation, left eye cataract surgery, history of colonic polyp removal, left meniscal tear surgery, history of right-sided chest tube placement for pleural effusion. ALLERGIES: NO KNOWN DRUG ALLERGIES. FAMILY HISTORY: No significant family history of end-stage renal disease requiring hemodialysis. SOCIAL HISTORY: Patient lives alone. Does not smoke and he denies any illicit drug abuse or alcohol abuse. REVIEW OF SYSTEMS: CONSTITUTIONAL: He denies any fevers and chills. EYES: He denies any denies any blurry vision or double vision. ENT: He denies any dysphagia or odynophagia. CARDIOVASCULAR: He denies any chest pain or palpitation. RESPIRATORY: He denies any shortness of breath or cough. GASTROINTESTINAL: He denies any nausea or vomiting. He does report history of cirrhosis. GENITOURINARY: He denies any dysuria or hematuria. MUSCULOSKELETAL: He denies any muscle aches and pains. He reports a healing left thigh abscess site. CENTRAL NERVOUS SYSTEM (CADASTRAL SURVEYOR): Patient does report inability to communicate and he reports that he is very slow to respond to questions. SKIN: He denies any rashes. PSYCHIATRIC: He denies any depression or anxiety. ENDOCRINE: He reports history of diabetes mellitus, type 2. HEMATOLOGY/ONCOLOGY: He denies any easy bleeding or bruising. All other review of systems is negative. PHYSICAL EXAMINATION: GENERAL: Patient is awake, alert, oriented times three, sitting up in the bed. VITAL SIGNS: Temperature is 97.4 degrees Fahrenheit, blood pressure 109/72, pulse is 85, respiratory rate of 18, saturating 97% on room air. HEAD AND NECK EXAM: Extraocular muscles intact. Pupils equally round and reactive to light. Mucous membranes are moist. Neck is supple. There is no jugular venous distention (JVD). CARDIOVASCULAR: S1, S2, regular rate. No edema of the bilateral lower extremities. RESPIRATORY: Chest is clear to auscultation bilaterally. Bilateral equal air entry. No rales or rhonchi. ABDOMEN: Soft, obese, positive bowel sounds. No organomegaly was noted. MUSCULOSKELETAL: No clubbing or cyanosis. Patient has a healed abscess site in the left thigh, which is covered with a dressing. CENTRAL NERVOUS SYSTEM: No asterixis is noted. No focal deficit. He moves all extremities. However, he answers the questions slowly. LAB REVIEW: CBC showed WBC of 2.7, hemoglobin 10.3, platelets are 87. BMP showed sodium 135, potassium 3.6, chloride 96, bicarbonate 33, BUN 25, creatinine is 5.3, calcium is 8, total bilirubin 0.7, AST 38, ALT 27, alkaline phosphatase is 108, albumin is 2.8. IMAGING: Gallbladder ultrasound was done, which showed hepatic steatosis and normal gallbladder. Chest x-ray did not show any acute cardiopulmonary process. CT of the head showed [id number] age-related parenchymal volume loss and diffuse cerebellar atrophy. MEDICATIONS: - The patient was initially started on meropenem and Zyvox which have been stopped now. - She is on Tylenol as needed. - Colace 100 mg by mouth twice a day - gabapentin 100 mg by mouth twice a day - insulin lispro sliding scale - lactulose syrup 30 mL by mouth every 8 hours - Levaquin 750 mg by mouth times one dose - He is on propranolol 5 mg by mouth daily in the morning and 10 mg at bedtime. - He is on Renvela 800 mg by mouth daily. ASSESSMENT: 69-year-old male with past medical history of diabetes mellitus, type 2, end-stage renal disease on hemodialysis every Sunday, Sunday, Sunday, admitted this time with pancytopenia and hepatic encephalopathy. PLAN: 1. End-stage renal disease. Patient's regular dialysis days are Sunday, Sunday, Sunday. He did almost 3 hours of dialysis yesterday. No urgent need of dialysis today. He will be dialyzed tomorrow morning as per his regular schedule. 2. Hepatic encephalopathy. Patient is currently getting lactulose. His mental status is improving. He continues to be on propranolol for portal hypertension and he is empirically being covered with antibiotics to cover for possible systolic blood pressure (SBP). 3. Systemic inflammatory response syndrome with pancytopenia. Patient is afebrile but he has history of bacteremias, most recent one was about 2 months ago. He was already given meropenem and Zyvox. Cultures are pending so far. I will give this patient a dose of vancomycin to cover him for any gram-positive infection and he has already been switched to Levaquin which covers gram-negative infections including the intra-abdominal infection. 4. Chronic kidney disease, mineral bone disease. Continue current dose of Renvela with meals. 5. Anemia in end-stage renal disease. Hemoglobin level is within the optimal range. He will be started on Aranesp with dialysis. I will check his iron levels as well. 6. Diabetes mellitus, type 2. Patient continues to be on insulin sliding scale and glucose levels are within the acceptable range. Thank you for involving me in the care of this patient. I shall be happy to follow the patient along with you tomorrow morning.
[2019-12-02 13:46] LABS: PERCENT SATURATION 26.5 % (19.7-50.0)
[2019-12-02 16:00] VITALS: BP 121/79
[2019-12-02] MEDS ORDERED: (RENVELA) SEVELAMER **CARBONate** 800 MG TAB PO SCH (17:00)
--- NOTE | 2019-12-02 18:54 | IPNPDOC ---
Date Seen The patient was seen on 12/02/19. Progress Note SUBJECTIVE: 69-year-old male with past medical history of end-stage renal disease on hemodialysis Sunday, was in Sunday, chordee artery disease status post CABG, diabetes mellitus, cirrhosis, recent left thigh abscess with staph epi bacteremia was admitted for hepatic encephalopathy. Patient seen in the morning, comfortable in a recliner, without any complaints at this time, is slightly slow to respond but otherwise asymptomatic. He reports significant clinical improvement since last night, reports having mild confusion over the past week or so, which he notices is worse during dialysis. He denies any shortness of breath, chest pain, nausea, vomiting, abdominal pain, diarrhea or constipation at this time. 10 point review of system is negative except for above PHYSICAL EXAMINATION: VITAL SIGNS: Please see below. GENERAL: Obese HEENT: Normocephalic, atraumatic, moist mucous membranes NECK: Supple CARDIOVASCULAR EXAMINATION: S1, S2, no murmurs RESPIRATORY EXAMINATION: Scattered rhonchi, no wheezing ABDOMINAL EXAMINATION: Soft, nontender, nondistended, positive bowel sounds EXTREMITIES: Range of motion intact, left hip wound over previous abscess noted with discharge SKIN: No rash NEUROLOGICAL EXAMINATION: Alert and oriented 3, no focal deficits PSYCHIATRIC EXAMINATION: Calm and cooperative LABORATORY DATA, IMAGING STUDIES, MICROBIOLOGY: Please see below. ASSESSMENT AND PLAN: 69-year-old male with multiple medical comorbidities, was admitted for hepatic encephalopathy. PROBLEMS: 1. Hepatic encephalopathy: Significantly improved with lactulose, continue lactulose and titrate to 2-3 bowel movements per day, continue propranolol. 2. End-stage renal disease: On hemodialysis Sunday, Sunday, Sunday, nephrology following, continue outpatient regimen. 3. Recent left thigh abscess with staph epi bacteremia: Left thigh wound noted, has trace amount of discharge, Levaquin based on previous sensitivities. 4. Diabetes mellitus: Continue sliding scale insulin coverage with meals and at bedtime. DVT prophylaxis: Heparin subcutaneous GI prophylaxis: Home PPI VS, I&O, 24H, Fishbone Vital Signs/I&O Vital Signs Date Time Temp Pulse Resp B/P (MAP) Pulse Ox O2 Delivery O2 Flow Rate FiO2 12/02/19 16:00 97.9 93 18 121/79 (93) 100 Room Air Laboratory Data 24H LABS Laboratory Tests 2 12/01/19 20:24: Immature Granulocyte % (Auto) 0.0, Neutrophils (%) (Auto) 62.1, Lymphocytes (%) (Auto) 24.8, Monocytes (%) (Auto) 10.5H, Eosinophils (%) (Auto) 1.3, Basophils (%) (Auto) 1.3H, Neutrophils # (Auto) 2.0, Lymphocytes # (Auto) 0.8L, Monocytes # (Auto) 0.3, Eosinophils # (Auto) 0.0, Basophils # (Auto) 0.0, Nucleated Red Blood Cells % (auto) 0.0, Anion Gap 9, Glomerular Filtration Rate 15.1L, Estimated Mean Plasma Glucose 166H, Hemoglobin A1c 7.4, Osmolality 289, Lactic Acid Level 1.7, Calcium Level 8.5L, Total Bilirubin 0.7, Direct Bilirubin 0.2, Gamma Glutamyl Transferase 173H, Aspartate Amino Transf (AST/SGOT) 45H, Alanine Aminotransferase (ALT/SGPT) 33, Alkaline Phosphatase 140H, Ammonia 80H, Total Creatine Kinase 235, Creatine Kinase MB 3.8H, Creatine Kinase MB Relative Index 1.62, Troponin I < 0.02, Total Protein 8.0, Albumin 3.1L, Albumin/Globulin Ratio 0.63L, Thyroid Stimulating Hormone (TSH) 2.600 12/01/19 22:08: Prothrombin Time 14.7H, Prothromb Time International Ratio 1.18, Activated Partial Thromboplast Time 35.4 12/02/19 04:49: Methicillin-Resist S.aureus DNA PCR NOT DETECTED 12/02/19 05:43: Nucleated Red Blood Cells % (auto) 0.0, Anion Gap 6L, Glomerular Filtration Rate 11.4L, Calcium Level 8.0L, Total Bilirubin 0.7, Aspartate Amino Transf (AST/SGOT) 38H, Alanine Aminotransferase (ALT/SGPT) 27, Alkaline Phosphatase 108, Total Protein 7.3, Albumin 2.8L, Albumin/Globulin Ratio 0.62L, Prothrombin Time 15.6H, Prothromb Time International Ratio 1.27, Immature Platelet Fraction 1.6, Iron Level 56L, Total Iron Binding Capacity 211L, Transferrin % Saturation 26.5, Ferritin 594H 12/02/19 11:07: Bedside Glucose (Misc Panel) 141H 12/02/19 16:44: Bedside Glucose (Misc Panel) 153H CBC/BMP Laboratory Tests 12/01/19 20:24 12/02/19 05:43 Microbiology Microbiology 12/01/19 Blood Culture, Received Pending 12/01/19 Blood Culture, Received Pending PAOLA DRAKE MD Dec 02, 2019 18:54
[2019-12-02 20:00] VITALS: BP 122/80
[2019-12-02] MEDS ORDERED: HumaLOG INSULIN (NovoLOG) PER UNIT SC SCH (21:00)
[2019-12-02] MEDS ORDERED: PROPRANOLOL 10 MG TAB PO SCH (21:00)
[2019-12-02] MEDS: HEPARIN SOD (PORCINE) 5000 UNITS/ML VIAL (J1644 PER 1000UNITS) SQ SCH (22:26)
[2019-12-03] VITALS: BP 143/70
[2019-12-03 04:00] VITALS: BP 120/60
[2019-12-03] MEDS: LACTULOSE 20 GM/30 ML SYRUP UD PO SCH ×2 (06:00→14:38)
[2019-12-03 06:22] LABS: HEMOGLOBIN 10.7 g/dl (13.5-17.5); MEAN CORPUSCULAR HEMOGLOBIN 29.1 pg (27.0-33.0); MEAN CORPUSCULAR HGB CONC 32.4 g/dl (32.0-36.5); MEAN CORPUSCULAR VOLUME 89.7 fl (80.0-96.0); RED BLOOD COUNT 3.68 10^6/uL (4.30-6.10); WHITE BLOOD COUNT 3.7 10^3/uL (4.0-10.0)
[2019-12-03 06:25] LABS: PLATELET COUNT, AUTOMATED 89 10^3/uL (150-450)
[2019-12-03 06:45] LABS: ALBUMIN 2.6 GM/DL (3.2-5.2); BILIRUBIN,TOTAL 0.7 MG/DL (0.2-1.0); CALCIUM LEVEL 8.4 MG/DL (8.8-10.2); CREATININE FOR GFR 7.12 MG/DL (0.70-1.30); GLOMERULAR FILTRATION RATE 8.1 (>42); MAGNESIUM LEVEL 2.4 MG/DL (1.8-2.4); PHOSPHORUS LEVEL 5.9 MG/DL (2.5-4.9); POTASSIUM SERUM 3.9 MEQ/L (3.5-5.1); TOTAL PROTEIN 7.4 GM/DL (6.4-8.2)
[2019-12-03 08:00] VITALS: BP 122/79
[2019-12-03] MEDS: DOCUSATE SODIUM 100 MG CAP PO SCH (08:05)
[2019-12-03] MEDS: GABAPENTIN 100 MG CAP PO SCH (08:05)
[2019-12-03] MEDS: HumaLOG INSULIN (NovoLOG) PER UNIT SC SCH ×2 (08:06→14:00)
[2019-12-03] MEDS: HEPARIN SOD (PORCINE) 5000 UNITS/ML VIAL (J1644 PER 1000UNITS) SQ SCH (08:06)
[2019-12-03 08:07] VITALS: BP 120/60
[2019-12-03] MEDS: PROPRANOLOL 10 MG TAB PO SCH (08:07)
[2019-12-03] MEDS ORDERED: PANTOPRAZOLE 40MG TAB (PROTONIX) PO SCH (09:00)
[2019-12-03] MEDS ORDERED: LIDOCAINE 1% SDV 5 ML VIAL SQ ONE (10:45)
[2019-12-03] MEDS ORDERED: LEVA750T7 PO (10:51)
--- NOTE | 2019-12-03 10:59 | IPN ---
DATE OF SERVICE: 12/03/2019 SUBJECTIVE: The patient was seen and examined at the bedside today morning and during hemodialysis. He is tolerating the hemodialysis dialysis procedure well. He denies any active complaints. He is much more awake and alert today. OBJECTIVE: Vital Signs: Temperature is 98.6 degrees Fahrenheit, blood pressure 124/79, pulse is 87, respiratory rate of 18, saturating 98% on room air. Intake and output: There is no urine output recorded. Weight in the bed scale is 113.2 kg. PHYSICAL EXAMINATION: General: The patient is awake, alert, oriented x3, laying in bed, in no apparent distress. Head and Neck Exam: Extraocular muscles intact. Pupils equally round and reactive to light. Mucous membranes are moist. Neck is supple. There is no jugular venous distention (JVD). Cardiovascular: S1, S2. Regular rate. No edema of the bilateral lower extremities. Respiratory: Chest is clear to auscultation bilaterally. Bilateral equal air entry. No rales or rhonchi. Abdomen: Soft, obese. Positive bowel sounds. Nontender. No organomegaly. Musculoskeletal: No clubbing or cyanosis. Pulses are 2+. SVP RESEARCH & EBUSINESS OPERATIONS: No focal deficit. Power is 5/5 in all extremities. LAB REVIEW: CBC showed a WBC of 33.7, hemoglobin 10.7, platelets 89. BMP showed a sodium of 137, potassium 3.9, chloride 100, bicarb 30, BUN 40, creatinine 7.1, calcium 8.4, phosphorus 5.9, magnesium 2.4, and albumin is 2.6. Microbiology: Blood cultures are negative so far. CURRENT INPATIENT MEDICATIONS: The patient's medications were all reviewed by myself. Zyvox and meropenem have been stopped. The patient is currently on Levaquin, one dose was given yesterday. No other change in the medications today as compared with yesterday. ASSESSMENT/PLAN: 1. End-stage renal disease. The patient is being dialyzed according to his regular schedule. Ultrafiltration goal is around 3 kg as tolerated by his blood pressure. 2. Hepatic encephalopathy. The patient is much more awake and alert today. He is getting lactulose. 3. Anemia in end-stage renal disease. Iron levels are adequate. The patient is getting Aranesp with dialysis. 4. Cirrhosis and portal hypertension. The patient is getting Inderal 5 mg in the morning and 10 mg at night time. 5. Chronic kidney disease mineral bone disease. Continue current dose of Renvela for hyperphosphatemia.
[2019-12-03] MEDS ORDERED: HEPARIN 1,000 UNITS/ML 10ML VIAL (FOR RADIOLOGY& DIALYSIS ONLY)(J1644-10) IV ONE (11:00)
--- NOTE | 2019-12-03 19:06 | DS.PDOC ---
Discharge Summary General Date of Admission Dec 01, 2019 at 23:10 Date of Discharge 12/03/19 Attending Physician: PAOLA DRAKE MD Discharge Summary PROCEDURES PERFORMED DURING STAY: None. ADMITTING DIAGNOSES: 1. Hepatic encephalopathy. DISCHARGE DIAGNOSES: 1. Hepatic encephalopathy. COMPLICATIONS/CHIEF COMPLAINT: Pancytopenia, Hepatic Encephalopathy. HISTORY OF PRESENT ILLNESS: 69-year-old male with an extensive past medical history, was admitted for hepatic encephalopathy, treated with lactulose with good clinical improvement. Patient is back to his baseline, no other complaints, evaluated and cleared by physical therapy. Patient is seen today during hemodialysis, will be discharged after he is done, strongly recommended that he continue to take his lactulose. Patient is seen with ampicillin for discharge and outpatient follow-up. HOSPITAL COURSE: As above. DISCHARGE MEDICATIONS: Please see below. ALLERGIES: Please see below. PHYSICAL EXAMINATION: VITAL SIGNS: Please see below. GENERAL: Obese HEENT: Normocephalic, atraumatic, moist mucous membranes NECK: Supple CARDIOVASCULAR EXAMINATION: S1, S2, no murmurs RESPIRATORY EXAMINATION: Scattered rhonchi, no wheezing ABDOMINAL EXAMINATION: Soft, nontender, nondistended, positive bowel sounds EXTREMITIES: Right upper extremity AV fistula SKIN: No rash NEUROLOGICAL EXAMINATION: Alert and oriented 3, no focal deficits PSYCHIATRIC EXAMINATION: Calm and cooperative LABORATORY DATA: Please see below. PROGNOSIS: Fair ACTIVITY: As tolerated. DIET: Cardiac DISCHARGE PLAN: Follow with PCP in 1-2 weeks DISPOSITION: 01 Home, Self-Care. DISCHARGE INSTRUCTIONS: 1. As above. DISCHARGE CONDITION: Stable. TIME SPENT ON DISCHARGE: Greater than 25 minutes. Vital Signs/I&Os Vital Signs Date Time Temp Pulse Resp B/P (MAP) Pulse Ox O2 Delivery O2 Flow Rate FiO2 12/03/19 08:07 86 120/60 12/03/19 08:00 98.6 18 98 Room Air I&O- Last 24 Hours up to 6 AM 12/03/19 06:00 Intake Total 1230 ml Output Total 0 ml Balance 1230 ml Laboratory Data Labs 24H Laboratory Tests 2 12/02/19 20:48: Bedside Glucose (Misc Panel) 188H 12/02/19 21:03: Ammonia 41H 12/03/19 05:59: Nucleated Red Blood Cells % (auto) 0.0, Immature Platelet Fraction 1.4, Anion Gap 7L, Glomerular Filtration Rate 8.1L, Calcium Level 8.4L, Phosphorus Level 5.9H, Magnesium Level 2.4, Total Bilirubin 0.7, Aspartate Amino Transf (AST/SGOT) 34, Alanine Aminotransferase (ALT/SGPT) 27, Alkaline Phosphatase 102, Total Protein 7.4, Albumin 2.6L, Albumin/Globulin Ratio 0.54L 12/03/19 13:51: Bedside Glucose (Misc Panel) 93 CBC/BMP Laboratory Tests 12/03/19 05:59 FSBS Laboratory Tests Test 12/02/19 20:48 12/03/19 13:51 Range/Units Bedside Glucose (Misc Panel) 188 93 83-110 MG/DL Microbiology Microbiology 12/01/19 Blood Culture - Preliminary, Resulted No growth after 24 hours . All specim... 12/01/19 Blood Culture - Preliminary, Resulted No growth after 24 hours . All specim... Discharge Medications Scheduled Cinnamon Bark (Cinnamon) 500 Mg Capsule, 500 MG PO DAILY, (Reported) Ergocalciferol (Vitamin D2) (Vitamin D2) 50,000 Units Cap, 50,000 UNITS PO 1XWK, (Reported) SATURDAYS Folic Acid/Vit B Complex and C (Adela-Liza Tablet) 1 Tab Tab, 1 TAB PO DAILY, (Reported) Gabapentin (Gabapentin) 100 Mg Capsule, 100 MG PO BID, (Reported) Glipizide (Glipizide ER) 5 Mg Tab.er.24, 5 MG PO BID, (Reported) 2ND DOSE WITH DINNER Levofloxacin (Levaquin) 750 Mg Tablet, 1 TAB PO ONCE Take on 12/04/19 Pantoprazole Sodium (Pantoprazole Sodium) 40 Mg Tablet.dr, 40 MG PO DAILY, (Reported) Propranolol HCl (Propranolol HCl) 10 Mg Tab, 5 MG PO DAILY, (Reported) Propranolol HCl (Propranolol HCl) 10 Mg Tab, 10 MG PO QHS, (Reported) Sevelamer Carbonate (Sevelamer Carbonate) 800 Mg Tablet, 800 MG PO QPM, (Reported) @ 1700 Sodium Polystyrene Sulfonate (Sps 15 gm/60 ml Suspension) 15 Gm/60 Ml Oral.susp, 15 GM PO ASDIRECTED, (Reported) Scheduled PRN Acetaminophen (Acetaminophen ER) 650 Mg Tablet.er, 650 MG PO TID PRN for FEVER, (Reported) Diphenhydramine HCl (Diphenhydramine HCl) 25 Mg Capsule, 25 MG PO QHS PRN for SLEEP, (Reported) Allergies Coded Allergies: No Known Allergies (Unverified , 09/10/18) PAOLA DRAKE MD Dec 03, 2019 19:06
== END 2019-12-03 14:41 | disposition home or self-care (01) | DRG 441 ==
LOC: EDBD 19:28 → M ED 19:28 → M ED INP 23:10 → ENRESERVTM 12-02 00:02 → ENRESERVDT 12-02 00:02 → M MSPAV 12-02 00:52
PROVIDERS: ADMIT Internal Medicine; ATTEND Internal Medicine
PROC: 5A1D70Z Performance of Urinary Filtration, Intermittent, Less than 6 Hours Per Day (ICD-10-PCS; principal; 2019-12-03)
DX: K72.90 Hepatic failure, unspecified without coma (principal); N18.6 End stage renal disease; I69.354 Hemiplegia and hemiparesis following cerebral infarction affecting left non-dominant side; D61.818 Other pancytopenia; I85.10 Secondary esophageal varices without bleeding; K76.6 Portal hypertension; I25.10 Atherosclerotic heart disease of native coronary artery without angina pectoris; E11.22 Type 2 diabetes mellitus with diabetic chronic kidney disease; K76.0 Fatty (change of) liver, not elsewhere classified; E66.9 Obesity, unspecified; K74.60 Unspecified cirrhosis of liver; E83.39 Other disorders of phosphorus metabolism; D63.1 Anemia in chronic kidney disease; Z68.37 Body mass index [BMI] 37.0-37.9, adult; Z98.42 Cataract extraction status, left eye; Z95.1 Presence of aortocoronary bypass graft; Z89.421 Acquired absence of other right toe(s); Z90.49 Acquired absence of other specified parts of digestive tract; Z79.84 Long term (current) use of oral hypoglycemic drugs; Z79.899 Other long term (current) drug therapy; Z99.2 Dependence on renal dialysis; Z86.14 Personal history of Methicillin resistant Staphylococcus aureus infection; Z86.010 Personal history of colon polyps

== ENCOUNTER → 2020-03-30 | Outpatient (CLI) | payer MEDICARE, BC, OTHER ==
[~2020-03-30] MED LIST changes: +AMOX500T2 PO; -ASPI81TA85 PO; +ASPI81TA86 PO; +COMMENTS; +HumaLOG INSULIN (NovoLOG) PER UNIT As Ordered ONE; +ISOVUE-300 61% 50ML VIAL As Ordered ONE; +LEVA750T7 PO; +LIDOCAINE 1% MDV 20ML VIAL As Ordered ONE; +MIDAZOLAM INJ 2MG/2ML VIAL (J2250 PER 1MG) As Ordered ONE; +PANT40TA29 PO; -PANT40TA3 PO; +SILD50TA PO; +fentaNYL 100 MCG/2 ML INJECTION (J3010) As Ordered ONE
--- NOTE | 2020-06-25 17:34 | ROOPDOC ---
[facility] Report Of Operation Report of Operation DATE OF PROCEDURE: 06/25/20 PREPROCEDURE DIAGNOSES: End-stage renal disease with difficulty with cannulation, increased pulsatility and poor flows right Bakari fistula POSTPROCEDURE DIAGNOSES: Same PROCEDURE: 1. Ultrasound-guided access right cephalic vein 2. Fistulogram and central venogram 3. Angioplasty cephalic vein with 7 x 200 Linville balloon 4. Completion venogram SURGEON: Jada Dooley MD ANESTHESIA: Local anesthesia 1 mL lidocaine. Moderate intravenous conscious sedation was administered by Dr. Dooley. The patient was independently monitored by registered nurse sign of the department of radiology using automated blood pressure, EKG, and pulse oximetry. The detailed sedation record is permanently stored in the hospital information system. The following is a brief sedation record: Start time 12:51, stop time 13:21, Versed 0.5 mg IV, fentanyl 25 g IV. CONTRAST: 20 mL Isovue-300 INDICATION FOR PROCEDURE: This a very pleasant 70-year-old gentleman who has had trouble with cannulation and pulsatility in poor flows in his right Bakari fi stula. Risks benefits alternatives to a fistulogram potential intervention were explained to the patient use agreeable to proceed. Informed consent was obtained. INTERPRETATION: 1. The right Bakari AV anastomosis is widely patent on ultrasound. 2. Fistulogram reveals widely patent right cephalic vein in the forearm that narrows slightly to 30-40% stenosis towards antecubital crease and over the distal upper arm and then is widely patent outflow back to the central system with no central stenosis noted. 3. After angioplasty with a 7 x 200 Linville balloon throughout the right cephalic vein for three-minute inflations, there is widely patent flow with no significant residual stenosis, no extravasation noted. REPORT OF OPERATION: The patient was brought to the angiographic suite in stable condition. His right upper extremity was prepped and draped in sterile fashion. A timeout was performed. Local anesthesia was Mr. to skin and subcutaneous tissue over the cephalic vein near the AV anastomosis. Ultrasound was used to examine the AV anastomosis and it was found to be widely patent. Ultrasound was used to access the vein with a microneedle and a wire was passed through this access and a 4 Slovenian sheath was placed and flushed with saline. A fistulogram and central venogram were performed. Please see interpretation above. A Glidewire was advanced through this access in the sheath was exchanged for 6 Slovenian sheath and flushed with saline. A 7 x 200 Linville balloon was advanced through the cephalic vein three-minute inflations along the length of the vein were performed. Following this, no significant residual stenosis persisted and there was no extravasation. There is no excellent thrill and fistula. We then placed additional local anesthesia around the sheath and a [id number] Prolene suture was placed around the sheath and the sheath was removed. Pressure was held for hemostasis and sterile dressings were applied. We then utilized ultrasound to linda the vein on the skin to make access easier for the dialysis nurses patient was then taken to recovery in stable condition. He tolerated the procedure the sedation well. ESTIMATED BLOOD LOSS: Approximately 2 mL. COMPLICATIONS: None. PLAN: It is okay to use the AV fistula for dialysis. It's okay to resume home diet and medications. We appreciate the opportunity to participate in the care of this patient. JADA DOOLEY MD Jun 25, 2020 17:34
== END ==
LOC: M IRPRO 10:32 → M RAD 10:32
PROVIDERS: ATTEND Surgery Vascular Surgery
DX: T82.590A Other mechanical complication of surgically created arteriovenous fistula, initial encounter (principal); N18.6 End stage renal disease; E11.9 Type 2 diabetes mellitus without complications; H26.9 Unspecified cataract; I12.0 Hypertensive chronic kidney disease with stage 5 chronic kidney disease or end stage renal disease; E78.5 Hyperlipidemia, unspecified; X58.XXXA Exposure to other specified factors, initial encounter; Z79.899 Other long term (current) drug therapy; Z95.5 Presence of coronary angioplasty implant and graft; Z99.2 Dependence on renal dialysis
CPT/HCPCS: 36902; 99152; 99153; C1725; C1769; C1894; J1644; J2250; J3010; Q9967

== ENCOUNTER 2020-06-14 21:50 | Inpatient (IN) | payer MEDICARE, BC, OTHER ==
[~2020-06-14] VITALS: Ht 172.7 cm; Wt 110.5 kg
[~2020-06-14 21:50] MED LIST changes: -AMOX500T2 PO; -HumaLOG INSULIN (NovoLOG) PER UNIT As Ordered ONE; -ISOVUE-300 61% 50ML VIAL As Ordered ONE; -LIDOCAINE 1% MDV 20ML VIAL As Ordered ONE; -MIDAZOLAM INJ 2MG/2ML VIAL (J2250 PER 1MG) As Ordered ONE; -SILD50TA PO; -fentaNYL 100 MCG/2 ML INJECTION (J3010) As Ordered ONE
[2020-06-14] MEDS ORDERED: ACETAMINOPHEN TAB 650MG DOSE (2X325MG) PO ONE (22:45)
[2020-06-14 23:21] LABS: BASO % 0.3 % (0.0-1.0); EOS % 0.4 % (0.0-3.0); HEMATOCRIT 37.5 % (42.0-52.0); HEMOGLOBIN 11.6 g/dl (13.5-17.5); LYMPH # 0.7 10^3/uL (1.5-5.0); LYMPH % 7.2 % (24.0-44.0); MEAN CORPUSCULAR HEMOGLOBIN 26.5 pg (27.0-33.0); MEAN CORPUSCULAR HGB CONC 30.9 g/dl (32.0-36.5); MEAN CORPUSCULAR VOLUME 85.6 fl (80.0-96.0); MONO # 0.8 10^3/uL (0.0-0.8); MONO % 8.9 % (0.0-5.0); NEUTROPHILS # 7.5 10^3/uL (1.5-8.5); NEUTROPHILS % 82.8 % (36.0-66.0); RED BLOOD COUNT 4.38 10^6/uL (4.30-6.10); WHITE BLOOD COUNT 9.1 10^3/uL (4.0-10.0)
[2020-06-14 23:24] LABS: PLATELET COUNT, AUTOMATED 89 10^3/uL (150-450)
[2020-06-14 23:32] LABS: INR 1.12; PROTHROMBIN TIME 14.7 SECONDS (12.5-14.3)
[2020-06-14 23:33] LABS: PARTIAL THROMBOPLASTIN TIME 35.6 SECONDS (24.2-38.5)
[2020-06-14 23:57] LABS: ALBUMIN 3.3 GM/DL (3.2-5.2); BILIRUBIN,DIRECT 0.3 MG/DL (0.0-0.2); BILIRUBIN,TOTAL 1.2 MG/DL (0.2-1.0); CALCIUM LEVEL 8.7 MG/DL (8.8-10.2); CREATININE FOR GFR 5.87 MG/DL (0.70-1.30); GLOMERULAR FILTRATION RATE 10.1 (>42); POTASSIUM SERUM 6.2 MEQ/L (3.5-5.1); TOTAL PROTEIN 8.4 GM/DL (6.4-8.2)
[2020-06-15] VITALS (12 sets, daily range): BP systolic 82–116; BP diastolic 50–60
[2020-06-15] MEDS ORDERED: ACETAMINOPHEN TAB 650MG DOSE (2X325MG) PO PRN (00:15)
[2020-06-15] MEDS ORDERED: MAALOX 30 ML SUSP *UDC PO PRN (00:15)
[2020-06-15] MEDS ORDERED: SILD50TA PO (00:15)
[2020-06-15] MEDS: NS 1,000 ML IV ONE ×2 (00:15→05:17)
[2020-06-15] MEDS ORDERED: MOM 30ML SUSPENSION UDC PO PRN (00:15)
--- NOTE | 2020-06-15 00:18 | HPEPDOC ---
[facility] Medical History & Physical Date of Admission Jun 15, 2020 Date of Service: Jun 15, 2020 Primary Care Physician: MK MONTALVO DO Attending Physician: TOY QUAN MD History and Physical TIME OF SERVICE: 12:45 AM CHIEF COMPLAINT: Sent from dialysis HISTORY OF PRESENT ILLNESS: This 70-year-old gentleman history of multiple wounds on his right upper extremity, hips, buttocks, in between his legs and on the plantar surface of his foot reports feeling unwell this morning. Specifically, he felt short of breath, had dizziness and fatigue. He denied having chest pain, nausea, vomiting of diarrhea. Prior to going to dialysis he he took Tylenol and coffee but continued to feel unwell. He thinks he had 3250 ml of fluid taken off during dialysis. While at the facility he was found to have a fever, given vancomycin and sent to the ER for evaluation. 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 Age related small vessel white matter angiopathic gliosis / Diffuse cerebellar atrophy Fatty liver / Liver cirrhosis w hx of decompensated hepatic encephalopathy & esophageal varices Class II obesity History of nonbleeding duodenal ulcer Appendectomy Right third toe Amputation to manage osteomyelitis Left eye cataract surgery Resection of sessile colonic polyps Left medial meniscal tear managed with with partial medial meniscectomy of the posterior horn of the medial meniscus Grade 2 chondromalacia of the medial femoral condyle managed with chondroplasty of the medial femoral condyle History of right pleural effusion requiring right-sided chest tube placement SOCIAL HISTORY: Doesn't smoke Doesn't drink Is a FAMILY HISTORY: Diabetes Cancer ALLERGIES: Please see below. HOME MEDICATIONS: Please see below. PHYSICAL EXAMINATION: Vital Signs Date Time Temp Pulse Resp B/P (MAP) Pulse Ox O2 Delivery O2 Flow Rate FiO2 06/14/20 21:50 101.1 117 18 102/51 (68) 96 Room Air GEN: well-nourished / well developed/ NAD INTEGUMENT: not flushed/ has a lesion on his right lowr arm and on the dorsal surfacr of the foot that are covered in a clean and dry dressing/ he also has lesios at both hips, on his buttock, and in between his legs / he has reduced hair distrubution on both lower legs and stasis dermatitis changes on both lower legs HEENT: lips acyanotic /mucus membranes moist and pink / he has mild scleral icterus CVS: RRR/NMRG/ radial pulses deminshed / no lower extremity edema LUNGS: able to speak full sentences without stopping to take a breath / no coughing / lungs are clear to auscultation bilaterally on room air ABDOMEN: Contour (obese ) MSK/EXTREMITIES: NCAT / range of motion intact in all 4 extremities NEURO: CN 2-12 are grossly intact / speech is not dysarthric PSYCH: alert and oriented to person place and time/ able to understand and follow all commands LABORATORY DATA: 06/14/20 23:09 06/14/20 23:09: Immature Granulocyte % (Auto) 0.4, Neutrophils (%) (Auto) 82.8H, Lymphocytes (%) (Auto) 7.2L, Monocytes (%) (Auto) 8.9H, Eosinophils (%) (Auto) 0.4, Basophils (%) (Auto) 0.3, Neutrophils # (Auto) 7.5, Lymphocytes # (Auto) 0.7L, Monocytes # (Auto) 0.8, Eosinophils # (Auto) 0.0, Basophils # (Auto) 0.0, Nucleated Red Blood Cells % (auto) 0.0, Immature Platelet Fraction 3.5, Prothrombin Time 14.7H, Prothromb Time International Ratio 1.12, Activated Partial Thromboplast Time 35.6, Anion Gap 9, Glomerular Filtration Rate 10.1L, Lactic Acid Level 2.8*H, Calcium Level 8.7L, Total Bilirubin 1.2H, Direct Bilirubin 0.3H, Aspartate Amino Transf (AST/SGOT) 46H, Alanine Aminotransferase (ALT/SGPT) 30, Alkaline Phosphatase 128H, C-Reactive Protein, Quantitative 2.00H, Total Protein 8.4H, Albumin 3.3, Albumin/Globulin Ratio 0.6, Amylase Level 43 IMAGING: Chest xray "IMPRESSION: No acute or focal cardiopulmonary process." US gallbladder " IMPRESSION: Probable intraluminal gallbladder sludge. No shadowing stone, cholecystitis change or biliary obstruction. Echogenic liver with probable underlying cirrhosis. Appearance of the right kidney suggests medical renal disease, similar to the prior ultrasound. " MICROBIOLOGY: Blood and respiratory panel pending.... ASSESSMENT: Mr. Tyson is a 70year-old with a history of ESRD, NIDDM, CAD/CABG, CVA?, liver cirrhosis w portal HTN, obesity, and multiple surgeries who was sent from dialysis for evaluation of fever, dizziness, dyspnea and fatigue and was found to have sepsis possibly 2/2 skin/soft tissue infection. PLAN: 1. Sepsis possibly 2/2 skin and soft tissue infections SIRS criterial include: HR >90 & T >101 Lactic acid is >2 CRP >2 QSOFA score = 1 = not high risk MAP <65 but the patient hasn't IVF Plan: admit to PCU / trend lactic acid / Zosyn and Vanc pending blood cx, MRSA & respiratory panel / c/w IVF / target MAP at of least 65 to 70 / will ask the day time team to consult Chrystal Alejo and Blanka for the patient's wounds and consider xray of the foot to r/o osteomyelitis 2. Liver Cirrhosis w portal HTN Suspect liver cirrhosis is 2/2 fatty Liver He has a history of esophageal varices and portal HTN In November Child-Nicole Score was 6 /Class A & his MELD (New) Score, was 23 Today Child-Nicole Score is 5 /Class A & his MELD (New) Score is 23 Plan: c/w propranolol / f/u w GI or PCP as scheduled 3. Hyperkalemia He has high K despite having dialysis a few hours ago, therefore hyperkalemia may be due to lactic acidosis Plan: Kayexalate / f/u repeat BMP in a few hours 4. ESRD Plan: f/u Is and Os & daily weights / Nephro consult / sevelamer 5. Chronic NN Anemia. Likely ACD Plan: f/u CBC 6. Chronic Thrombocytopenia Likely 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. Plan: f/u CBC 7. NIDDM Last A1C 7.4% in November Plan: f/u accuchecks / hypoglycemia protocol / sliding scale insulin / hold oral anti-glycemics / c/w gabapentin possibly for neuropathy 8. CAD/CABG Not on ASA possibly bc of hx of bleeding ? / not on statin possibly bc of liver failure ? Plan: f/u w Cardio for elective PCI as scheduled 9. Class 2 Obestiy BMI of 37.5 and co-existing DM complicates care Plan: can f/u w his PCP for STOP BANG questionnaire, outside machinist helper consult on an out patient basis DVT PROPHYLAXIS: Heparin DISPOSITION: home after more than 2 midnight's stay Home Medications Scheduled Ergocalciferol (Vitamin D2) (Vitamin D2) 50,000 Units Cap, 50,000 UNITS PO 1XWK SATURDAYS Folic Acid/Vit B Complex and C (Adela-Liza Tablet) 1 Tab Tab, 1 TAB PO QPM @1700 Gabapentin (Gabapentin) 100 Mg Capsule, 100 MG PO BID Glipizide (Glipizide ER) 5 Mg Tab.er.24, 5 MG PO BID 0800, 1700 Pantoprazole Sodium (Pantoprazole Sodium) 40 Mg Tablet.dr, 40 MG PO DAILY Propranolol HCl (Propranolol HCl) 10 Mg Tab, 5 MG PO DAILY Propranolol HCl (Propranolol HCl) 10 Mg Tab, 10 MG PO QPM @1700 Sevelamer Carbonate (Sevelamer Carbonate) 800 Mg Tablet, 800 MG PO QPM @ 1700 Scheduled PRN Sildenafil Citrate (Viagra) 50 Mg Tablet, 50 MG PO ASDIRECTED PRN for ERECTILE DYSFUNCTION Allergies Coded Allergies: No Known Allergies (Unverified , 06/14/20) A-FIB/CHADSVASC A-FIB History Current/History of A-Fib/PAF?: No Current PO Anticoag Therapy: No TOY QUAN MD Jun 15, 2020 00:18
--- NOTE | 2020-06-15 00:34 | REPVR ---
PROCEDURE INFORMATION: Exam: XR Chest, 1 View Exam date and time: 06/14/2020 11:00 PM Age: 70 years old Clinical indication: Other: Sepsis/shock TECHNIQUE: Imaging protocol: XR of the chest Views: 1 view. COMPARISON: [facility] PORTABLE CHEST X-RAY 12/01/2019 8:35 PM FINDINGS: Lungs: Degree of lung inflation is normal. No evidence of pulmonary edema. No focal consolidation or parenchymal lung mass. Pleural space: No pleural effusion or pneumothorax. Heart/Mediastinum: Cardiac silhouette appears normal. No adenopathy or hilar mass. Bones/joints: Osseous structures show no concerning abnormality. Median sternotomy and coronary bypass changes are present. IMPRESSION: No acute or focal cardiopulmonary process. Electronically signed by: Ayan Lane On 06/15/2020 00:34:12 AM
[2020-06-15] MEDS ORDERED: VANCOMYCIN HCL 1,000 MG, VIAL MATE ADAPTER 1 EACH in D5W 250 ML IV SCH ×2 (00:45→04:45)
[2020-06-15] MEDS ORDERED: NS 1,000 ML IV ONE ×2 (01:15→02:00)
[2020-06-15] MEDS ORDERED: PIPERACILLIN/TAZOBACTAM SOD 4.5 GM in D5W MINI-BAG PLUS 50 ML IV ONE (01:30)
--- NOTE | 2020-06-15 01:32 | REPVR ---
PROCEDURE INFORMATION: Exam: US Abdomen, Limited; Right Upper Quadrant Exam date and time: 06/15/2020 1:13 AM Age: 70 years old Clinical indication: Abnormal findings; Abnormal lab test; Elevated liver enzymes; Additional info: Fever TECHNIQUE: Imaging protocol: US abdomen. Real time ultrasound with image documentation. Limited exam focused on the right upper quadrant. COMPARISON: GALLBLADDER US 12/01/2019 10:23 PM FINDINGS: Pancreas is only partially visualized due to bowel shadowing. No overt abnormailty. Echogenic with nodular contours but no focal lesion homogeneous in echotexture, with no focal lesion. Gallbladder may contain sludge. No stone, mural edema or pericholecystic fluid. Common bile duct measures five mm in diameter. Right kidney measures 12.7 cm in long axis. Right kidney is echogenic with thin cortex but no obstruction. No free fluid. IMPRESSION: Probable intraluminal gallbladder sludge. No shadowing stone, cholecystitis change or biliary obstruction. Echogenic liver with probable underlying cirrhosis Appearance of the right kidney suggests medical renal disease, similar to the prior ultrasound Electronically signed by: Ayan Lane On 06/15/2020 01:32:00 AM
[2020-06-15 02:14] LABS: VANCOMYCIN RANDOM 20.8 UG/ML
[2020-06-15] MEDS ORDERED: GLUCOSE 4GM CHEW TABLET PO PRN (02:45)
[2020-06-15] MEDS ORDERED: GLUCAGON INJ 1MG VIAL SC PRN (02:45)
[2020-06-15] MEDS ORDERED: DEXTROSE 50% 50 ML SYRINGE IV PRN (02:45)
[2020-06-15] MEDS ORDERED: PILL CUTTER 1 EACH XX PRN (03:45)
[2020-06-15] MEDS ORDERED: SOD POLYSTYRENE SULFONATE SUSP 15 GM/60 ML UD PO ONE (05:00)
[2020-06-15 06:35] LABS: HEMATOCRIT 35.9 % (42.0-52.0); HEMOGLOBIN 11.2 g/dl (13.5-17.5); MEAN CORPUSCULAR HEMOGLOBIN 27.2 pg (27.0-33.0); MEAN CORPUSCULAR HGB CONC 31.2 g/dl (32.0-36.5); MEAN CORPUSCULAR VOLUME 87.1 fl (80.0-96.0); RED BLOOD COUNT 4.12 10^6/uL (4.30-6.10); WHITE BLOOD COUNT 9.6 10^3/uL (4.0-10.0)
[2020-06-15 06:37] LABS: PLATELET COUNT, AUTOMATED 80 10^3/uL (150-450)
[2020-06-15 06:54] LABS: ALBUMIN 2.9 GM/DL (3.2-5.2); BILIRUBIN,TOTAL 1.4 MG/DL (0.2-1.0); CALCIUM LEVEL 7.8 MG/DL (8.8-10.2); CREATININE FOR GFR 6.71 MG/DL (0.70-1.30); GLOMERULAR FILTRATION RATE 8.7 (>42); POTASSIUM SERUM 5.7 MEQ/L (3.5-5.1); TOTAL PROTEIN 7.2 GM/DL (6.4-8.2)
[2020-06-15] MEDS: PROPRANOLOL 10 MG TAB PO SCH (08:46)
[2020-06-15] MEDS: PANTOPRAZOLE 40MG TAB (PROTONIX) PO SCH (08:51)
[2020-06-15] MEDS: GABAPENTIN 100 MG CAP PO SCH ×2 (08:51→21:36)
[2020-06-15] MEDS: NS 1,000 ML IV SCH ×2 (08:51→16:20)
[2020-06-15] MEDS: HEPARIN SOD (PORCINE) 5000UNITS/ML 1ML VIAL/SYRINGE SC SCH ×2 (08:52→21:37)
[2020-06-15] MEDS: HumaLOG INSULIN (NovoLOG) PER UNIT SC SCH ×4 (08:52→21:37)
--- NOTE | 2020-06-15 09:35 | ECGEPIP ---
[facility] - ED Test Date: 2020-06-15 Pat Name: KALYANI WHITMORE Department: Room: [place] [address] Gender: Male Role Player: CHAVO : 1950 Requested By: TYRA QUINTERO Order Number: [id number] Reading MD: Crystal Vasques Measurements Intervals [place] Rate: 87 P: 85 OK: 144 QRS: 13 QRSD: 96 T: 54 QT: 383 QTc: 463 Interpretive Statements SINUS RHYTHM ST DEPRESSION COMPARED 12/01/19, CLINICAL CORRELATION PROLONGED QTC Electronically Signed on 06-15-2020 9:35:47 EDT by Crystal Vasques
[2020-06-15] MEDS ORDERED: NS 500 ML IV ONE (10:00)
[2020-06-15] MEDS: PIPERACILLIN/TAZOBACTAM SOD 4.5 GM in D5W MINI-BAG PLUS 50 ML IV SCH (12:19)
--- NOTE | 2020-06-15 13:03 | IPNPDOC ---
Text Note Date of Service The patient was seen on 06/15/20. NOTE Subjective: Patient is a 70-year-old male with a PMHx of Chronic wounds, ESRD on HD (MWF), CAD s/p CABG, Hx of CVA w/ L sided paraesthesia, IDDM2, Fatty liver, Obesity, GERD / Duodenal ulcer who presented to the emergency room from dialysis after he was noted to have dizziness and weakness. Upon arrival to emergency room, patient was found to be hypotensive and was admitted to the hospital service for further evaluation and treatment. Patient was seen and examined at the bedside. Patient reports that he still feels kind of weak. Denies any chest pain, shortness of breath, palpitations, nausea, vomiting, abdominal pain, diarrhea or constipation. Patient reports his last bowel movement was yesterday. He does report making some urine but denies any urinary discomfort. Objective: Vitals (See below) General: Lying in bed, appears tired, AAOx3 HEENT: NC, AT CVS: +S1S2 Lungs: Fair air entry b/l, no appreciable wheezing, rhonchi or rales Abdomen: Soft, ND, nontender, obese Extremities: - Edema, - Calf tenderness Assessment and plan: Hypotension / Lactic acidosis - possibly 2/2 sepsis - etiology unclear - Patient presented to the emergency room from dialysis after expressing weakness and fatigue - Patient was found to be febrile on arrival - Physical does not reveal any significant findings - No leukocytosis or lactic acidosis was noted - Respiratory panel 06/15: Negative - Blood cultures 06/14: Pending - CXR 06/14: No acute or focal cardiopulmonary process. - Liver US 06/15: Probable intraluminal gallbladder sludge. No shadowing stone, cholecystitis change or biliary obstruction. Echogenic liver with probable underlying cirrhosis Appearance of the right kidney suggests medical renal disease, similar to the prior ultrasound - c/w Vancomycin and Zosyn (Day #2) Hyperkalemia - Will c/w Dialysis as scheduled - c/w provide Kayexalate as needed Normocytic anemia - Hemoglobin appears to be higher than baseline; possibly secondary to hemoconcentration - No evidence of bleeding Thrombocytopenia - Patient has had chronic frontal cytopenia since 2017 - Like be secondary to splenic sequestration given cirrhosis - No evidence of bleeding - Will continue to follow platelet count Cirrhosis with portal HTN - 2/2 Fatty liver - c/w Propranolol, Chronic wounds - c/w dressing changes ESRD on HD (MWF) - c/w HD - Nephrology on consultation CAD s/p CABG - Currently not on medications Hx of CVA w/ L sided paraesthesia - Currently not on medications IDDM2 with Neuropathy - c/w Gabapentin - c/w ISS Obesity - BMI of 37 - Complicating medical care GERD / Duodenal ulcer - c/w Protonix DVT prophylaxis - c/w Heparin Disposition: - Awaiting clinical improvement VS,Edy, I+O VSEdy I+O Laboratory Tests 06/14/20 23:09 06/15/20 06:12 Vital Signs Date Time Temp Pulse Resp B/P (MAP) Pulse Ox O2 Delivery O2 Flow Rate FiO2 06/15/20 11:15 94 110/60 (77) 06/15/20 10:45 99.1 06/15/20 08:00 20 94 Room Air I&O- Last 24 Hours up to 6 AM 06/15/20 06:00 Intake Total 50 ml Output Total 0 ml Balance 50 ml SANCHEZ JIMENEZ MD Jun 15, 2020 13:03
[2020-06-15] MEDS ORDERED: **VANCO AFTER HD** MISC XX SCH (16:00)
[2020-06-15] MEDS ORDERED: PROPRANOLOL 10 MG TAB PO SCH (17:00)
[2020-06-15] MEDS: (RENVELA) SEVELAMER **CARBONate** 800 MG TAB PO SCH (18:16)
[2020-06-16] VITALS: BP 82/50
[2020-06-16] MEDS: PIPERACILLIN/TAZOBACTAM SOD 4.5 GM in D5W MINI-BAG PLUS 50 ML IV SCH ×2 (01:25→15:37)
[2020-06-16 04:00] VITALS: BP 110/60
[2020-06-16 05:06] LABS: HEMATOCRIT 30.4 % (42.0-52.0); HEMOGLOBIN 9.4 g/dl (13.5-17.5); MEAN CORPUSCULAR HEMOGLOBIN 27.4 pg (27.0-33.0); MEAN CORPUSCULAR HGB CONC 30.9 g/dl (32.0-36.5); MEAN CORPUSCULAR VOLUME 88.6 fl (80.0-96.0); RED BLOOD COUNT 3.43 10^6/uL (4.30-6.10); WHITE BLOOD COUNT 5.1 10^3/uL (4.0-10.0)
[2020-06-16 05:13] LABS: PLATELET COUNT, AUTOMATED 67 10^3/uL (150-450)
[2020-06-16 05:32] LABS: ALBUMIN 2.3 GM/DL (3.2-5.2); BILIRUBIN,TOTAL 0.7 MG/DL (0.2-1.0); CALCIUM LEVEL 7.6 MG/DL (8.8-10.2); CREATININE FOR GFR 8.59 MG/DL (0.70-1.30); GLOMERULAR FILTRATION RATE 6.5 (>42); TOTAL PROTEIN 6.7 GM/DL (6.4-8.2); VANCOMYCIN RANDOM 12.6 UG/ML
[2020-06-16 08:00] VITALS: BP 135/73
[2020-06-16] MEDS: HEPARIN SOD (PORCINE) 5000UNITS/ML 1ML VIAL/SYRINGE SC SCH ×2 (08:31→21:02)
[2020-06-16] MEDS: HumaLOG INSULIN (NovoLOG) PER UNIT SC SCH ×4 (08:31→21:00)
[2020-06-16] MEDS: PANTOPRAZOLE 40MG TAB (PROTONIX) PO SCH (08:32)
[2020-06-16] MEDS: PROPRANOLOL 10 MG TAB PO SCH (08:32)
[2020-06-16] MEDS: GABAPENTIN 100 MG CAP PO SCH ×2 (08:32→21:01)
--- NOTE | 2020-06-16 10:14 | IPNPDOC ---
Text Note Date of Service The patient was seen on 06/16/20. NOTE Subjective: Patient is a 70-year-old male with a PMHx of Chronic wounds, ESRD on HD (MWF), CAD s/p CABG, Hx of CVA w/ L sided paraesthesia, IDDM2, Fatty liver, Obesity, GERD / Duodenal ulcer who presented to the emergency room from dialysis after he was noted to have dizziness and weakness. Upon arrival to emergency room, patient was found to be hypotensive and was admitted to the hospital service for further evaluation and treatment. Patient was seen and examined at the bedside. Currently patient denies any nausea, vomiting, chest pain, shortness breath, palpitations. Denies any abdominal pain, diarrhea. Patient reports that he makes very little urine but denies any urinary discomfort. Patient reports that overall he feels better than he did yesterday. Objective: Vitals (See below) General: Lying in bed, comfortable, in no acute distress, AAOx3 HEENT: NC, AT CVS: +S1S2 Lungs: Auscultation is without any rhonchi, rales or wheezing. Air entry remains fair bilaterally Abdomen: Remains soft without any distention or tenderness, obese Extremities: No evidence of lower extremity edema, - Calf tenderness Assessment and plan: d/p Hypotension / Lactic acidosis - possibly 2/2 sepsis - possibly 2/2 SSTI (multiple wounds), possibly 2/2 UTI? - Presented to ER from dialysis after expressing weakness and fatigue; was found to be febrile on arrival - Physical remains unrevealing - No leukocytosis or lactic acidosis was noted - Respiratory panel 06/15: Negative - Blood cultures 06/14: No growth at 24 hours - CXR 06/14: No acute or focal cardiopulmonary process. - Will straight cath for UA / Urine culture - Liver US 06/15: Probable intraluminal gallbladder sludge. No shadowing stone, cholecystitis change or biliary obstruction. Echogenic liver with probable underlying cirrhosis Appearance of the right kidney suggests medical renal disease, similar to the prior ultrasound - c/w Zosyn (Antibiotic day #3); Will DC Vancomycin s/p Hyperkalemia - Will c/w Dialysis as scheduled Normocytic anemia - Hg remains stable; slight decrease - likely 2/2 dilutional etiology - No evidence of bleeding Thrombocytopenia - Patient has had chronic frontal cytopenia since 2017 - Like be secondary to splenic sequestration given cirrhosis - No evidence of bleeding - Will continue to follow platelet count Cirrhosis with portal HTN - 2/2 Fatty liver - c/w Propranolol Chronic wounds - c/w dressing changes ESRD on HD (MWF) - c/w HD - Nephrology on consultation CAD s/p CABG - Currently not on medications Hx of CVA w/ L sided paraesthesia - Currently not on medications IDDM2 with Neuropathy - c/w Gabapentin - c/w ISS Obesity - BMI of 37 - Complicating medical care GERD / Duodenal ulcer - c/w Protonix DVT prophylaxis - c/w Heparin Disposition: - Awaiting clinical improvement - Will adjust antibiotics depending on UA VS,Fishbone, I+O VS, Fishbone, I+O Laboratory Tests 06/15/20 15:02 06/16/20 04:36 Vital Signs Date Time Temp Pulse Resp B/P (MAP) Pulse Ox O2 Delivery O2 Flow Rate FiO2 06/16/20 08:00 98.3 89 20 135/73 (93) 99 Nasal Cannula 2.0 I&O- Last 24 Hours up to 6 AM 06/16/20 05:59 Intake Total 3680 ml Output Total 0 ml Balance 3680 ml SANCHEZ JIMENEZ MD Jun 16, 2020 10:14
[2020-06-16] MEDS ORDERED: SLF 3 ML SYR IV PRN (12:00)
[2020-06-16 16:00] VITALS: BP 135/71
[2020-06-16] MEDS: SLF 3 ML SYR IV SCH ×2 (16:01→21:31)
[2020-06-16] MEDS: (RENVELA) SEVELAMER **CARBONate** 800 MG TAB PO SCH (16:01)
[2020-06-16 20:00] VITALS: BP 118/62
[2020-06-16] MEDS ORDERED: AUGMENTIN 875 MG TAB PO SCH (21:00)
[2020-06-16] MEDS ORDERED: AUGMENTIN 500 MG TAB PO ONE (22:00)
[2020-06-17 04:00] VITALS: BP 112/52
[2020-06-17] MEDS: SLF 3 ML SYR IV SCH (05:02)
[2020-06-17 05:41] LABS: BASO % 0.9 % (0.0-1.0); EOS # 0.1 10^3/uL (0.0-0.5); EOS % 3.5 % (0.0-3.0); HEMATOCRIT 32.2 % (42.0-52.0); LYMPH # 0.9 10^3/uL (1.5-5.0); LYMPH % 25.6 % (24.0-44.0); MEAN CORPUSCULAR HEMOGLOBIN 26.9 pg (27.0-33.0); MEAN CORPUSCULAR HGB CONC 31.1 g/dl (32.0-36.5); MEAN CORPUSCULAR VOLUME 86.6 fl (80.0-96.0); MONO # 0.5 10^3/uL (0.0-0.8); MONO % 13.3 % (0.0-5.0); NEUTROPHILS % 56.4 % (36.0-66.0); RED BLOOD COUNT 3.72 10^6/uL (4.30-6.10); WHITE BLOOD COUNT 3.5 10^3/uL (4.0-10.0)
[2020-06-17 05:45] LABS: PLATELET COUNT, AUTOMATED 75 10^3/uL (150-450)
[2020-06-17 06:07] LABS: CREATININE FOR GFR 6.41 MG/DL (0.70-1.30); GLOMERULAR FILTRATION RATE 9.2 (>42); MAGNESIUM LEVEL 2.1 MG/DL (1.8-2.4); POTASSIUM SERUM 4.5 MEQ/L (3.5-5.1)
[2020-06-17 08:00] VITALS: BP 110/70
--- NOTE | 2020-06-17 08:02 | IPN ---
DATE: 06/16/2020 SUBJECTIVE: Kristopher is seen and examined this morning at the bedside. He reports he feels much better. His lightheadedness and dizziness has resolved. He has been getting up and out of bed and ambulating to the bathroom. He denies shortness of breath or dyspnea with exertion. I discontinued his I.V. fluids earlier this morning. He is scheduled for hemodialysis this afternoon, and I discussed with him that it will be a gentle treatment with only 1 liter of fluid to be removed. His blood pressure has improved nicely. He has been afebrile the past 24 hours. PHYSICAL EXAMINATION: VITALS: Temperature 97.4, pulse 77, respiratory rate 20, blood pressure 135/71, saturating 98% on room air. Intake yesterday was 3730. Goal dialysis removal today is 1 liter. Weight in the bed scale today is not recorded. GENERAL: Patient is seen lying in bed, in no apparent distress, awake, alert, oriented, interactive and conversational. HEENT: Extraocular muscles are intact. Tongue is moist. Unremarkable. Neck supple. HEART: Heart sounds are regular, S1, S2. There is trace leg edema at most. LUNGS: Clear to auscultation bilaterally. No crackles, rales or rhonchi. ABDOMEN: Soft, obese and nontender. EXTREMITIES: The wound are not examined. NEUROLOGIC: He is oriented x3, at baseline mentation. PSYCHIATRIC: Appropriate mood and affect. SKIN: Warm and dry. Normal turgor. LABORATORY DATA: White count 5.1, hemoglobin 9.4, platelets 67,000. Sodium 137, potassium 5.0, BUN 36, creatinine 8.5. Lactic acid 1.7. Blood cultures showed no growth for 24 hours times two sets. IMAGING STUDIES: Gallbladder ultrasound yesterday showed intraluminal gallbladder sludge and psoriatic appearance of the liver. INPATIENT MEDICATIONS: I discontinued his I.V. fluids. Primary team discontinued his Vancomycin and Zosyn, and started him on Augmentin 500 mg p.o. every 12 hours. The remainder of his medications are unchanged from prior. PROBLEMS: 1. End-stage renal disease on hemodialysis on Sunday, Sunday, Sunday schedule: Patient was dialyzed today and we only removed 1 liter in view of recent episode of sepsis requiring I.V. fluids. He tolerated his treatment without issue, 1 liter was removed. Electrolytes and volume status are acceptable. 2. Status post sepsis related to skin and soft tissue infection and multiple wounds: Blood cultures from the hospital are negative. There were also blood cultures drawn on dialysis and I will follow those up. Report was not yet available to me. His antibiotics have been deescalated per primary team, and he is now on Augmentin and he is pending telemedicine wound care consult. 3. Hyperkalemia: It has improved, he was dialyzed today with a 2.0 mEq potassium bath. 4. Anemia of chronic renal failure: Hemoglobin down trended likely due to I.V. fluid administration and he will be restarted on Aranesp with the next treatment. 5. Thrombocytopenia: He received Heparin free dialysis today. 6. Cirrhosis with portal hypertension: I reduced the dose of Propranolol right now while he had a recent episode of sepsis. Blood pressures are acceptable. MTDD
[2020-06-17] MEDS ORDERED: AMOX500T2 PO (08:11)
[2020-06-17] MEDS: GABAPENTIN 100 MG CAP PO SCH (08:29)
[2020-06-17] MEDS: HEPARIN SOD (PORCINE) 5000UNITS/ML 1ML VIAL/SYRINGE SC SCH (08:29)
[2020-06-17] MEDS: HumaLOG INSULIN (NovoLOG) PER UNIT SC SCH (08:32)
[2020-06-17] MEDS: PANTOPRAZOLE 40MG TAB (PROTONIX) PO SCH (08:32)
[2020-06-17 08:33] VITALS: BP 138/72
[2020-06-17] MEDS: PROPRANOLOL 10 MG TAB PO SCH (08:33)
--- NOTE | 2020-06-17 08:56 | DS.PDOC ---
Discharge Summary General Date of Admission Jun 15, 2020 at 00:06 Date of Discharge 06/17/2020 Discharge Summary PROCEDURES PERFORMED DURING STAY: [None]. ADMITTING DIAGNOSES / DISCHARGE DIAGNOSES: s/p Hypotension / Lactic acidosis - possibly 2/2 sepsis - possibly 2/2 SSTI (multiple wounds), possibly 2/2 UTI? s/p Hyperkalemia Normocytic anemia Thrombocytopenia Cirrhosis with portal HTN - 2/2 Fatty liver Chronic wounds ESRD on HD (MWF) CAD s/p CABG Hx of CVA w/ L sided paraesthesia IDDM2 with Neuropathy Obesity GERD / Duodenal ulcer DVT prophylaxis COMPLICATIONS/CHIEF COMPLAINT: Weakness / Fatigue HISTORY OF PRESENT ILLNESS: Patient is a 70-year-old male with a PMHx of Chronic wounds, ESRD on HD (MWF), CAD s/p CABG, Hx of CVA w/ L sided paraesthesia, IDDM2, Fatty liver, Obesity, GERD / Duodenal ulcer who presented to the emergency room from dialysis after he was noted to have dizziness and weakness. Upon arrival to emergency room, patient was found to be hypotensive and was admitted to the hospital service for further evaluation and treatment. HOSPITAL COURSE: s/p Hypotension / Lactic acidosis - possibly 2/2 sepsis - possibly 2/2 SSTI (multiple wounds), possibly 2/2 UTI? - Presented to ER from dialysis after expressing weakness and fatigue; was found to be febrile on arrival - Physical again remains - No leukocytosis or lactic acidosis was noted - Respiratory panel 06/15: Negative - Blood cultures 06/14: No growth at 48 hours - CXR 06/14: No acute or focal cardiopulmonary process. - UA abnormal; Urine culture pending - Liver US 06/15: Probable intraluminal gallbladder sludge. No shadowing stone, cholecystitis change or biliary obstruction. Echogenic liver with probable underlying cirrhosis Appearance of the right kidney suggests medical renal disease, similar to the prior ultrasound - c/w Augmentin; s/p Zosyn & Vancomycin (Antibiotic day #4) - complete antiviral course as an outpatient - Will have outpatient follow-up with primary care provider within the next 7 days s/p Hyperkalemia Normocytic anemia - Hg remains stable; slight decrease - likely 2/2 dilutional etiology - No evidence of bleeding Thrombocytopenia - Patient has had chronic frontal cytopenia since 2017 - Like be secondary to splenic sequestration given cirrhosis - No evidence of bleeding - Platelet count stable Cirrhosis with portal HTN - 2/2 Fatty liver - c/w Propranolol Chronic wounds - c/w dressing changes ESRD on HD (MWF) - c/w HD - Nephrology on consultation CAD s/p CABG - Currently not on medications Hx of CVA w/ L sided paraesthesia - Currently not on medications IDDM2 with Neuropathy - c/w Gabapentin - c/w ISS Obesity - BMI of 37 - Complicating medical care GERD / Duodenal ulcer - c/w Protonix DVT prophylaxis - c/w Heparin DISCHARGE MEDICATIONS: Please see below. ALLERGIES: Please see below. PHYSICAL EXAMINATION ON DISCHARGE: Vitals (See below) General: Sitting up in bed, NAD, appears comfortable, AAOx3 HEENT: NC, AT CVS: +S1S2 Lungs: Again, air entry is fair bilaterally without any auscultated rhonchi, crackles or wheezing Abdomen: Abdomen is soft, obese, nondistended and nontender Extremities: No LE edema appreciated, - Calf tenderness LABORATORY DATA: Please see below. ACTIVITY: [As tolerated]. DISCHARGE PLAN: Follow-up with primary care provider and nephrology within the next 7 days Remain compliant with treatment plan and medications Return to the ER if you experience any problems DISPOSITION: Home DISCHARGE CONDITION: [Stable]. TIME SPENT ON DISCHARGE: 35 minutes. Vital Signs/I&Os Vital Signs Date Time Temp Pulse Resp B/P (MAP) Pulse Ox O2 Delivery O2 Flow Rate FiO2 06/17/20 08:33 90 138/72 06/17/20 08:00 98.1 16 97 Room Air 06/16/20 16:00 2.0 I&O- Last 24 Hours up to 6 AM 06/17/20 06:00 Intake Total 1175 ml Output Total 1000 ml Balance 175 ml Laboratory Data Labs 24H Laboratory Tests 2 06/16/20 11:35: Bedside Glucose (Misc Panel) 198H 06/16/20 17:31: Bedside Glucose (Misc Panel) 157H 06/16/20 21:00: Bedside Glucose (Misc Panel) 215H 06/16/20 23:30: Urine Color ABBEY, Urine Appearance CLOUDYH, Urine pH 7.0, Urine Specific [place] 1.012, Urine Protein 2+H, Urine Glucose (UA) 3+H, Urine Ketones NEGATIVE, Urine Blood 2+H, Urine Nitrite NEGATIVE, Urine Bilirubin NEGATIVE, Urine Urobilinogen 0.2, Urine Leukocyte Esterase 3+H, Urine WBC (Auto) TNTCH, Urine RBC (Auto) 36H, Urine Hyaline Casts (Auto) 0, Urine Bacteria (Auto) 1+H, Urine Squamous Epithelial Cells 2, Urine Sperm (Auto) 06/17/20 05:22: Immature Granulocyte % (Auto) 0.3, Neutrophils (%) (Auto) 56.4, Lymphocytes (%) (Auto) 25.6, Monocytes (%) (Auto) 13.3H, Eosinophils (%) (Auto) 3.5H, Basophils (%) (Auto) 0.9, Neutrophils # (Auto) 2.0, Lymphocytes # (Auto) 0.9L, Monocytes # (Auto) 0.5, Eosinophils # (Auto) 0.1, Basophils # (Auto) 0.0, Nucleated Red Blood Cells % (auto) 0.0, Immature Platelet Fraction 2.9, Anion Gap 10, Glomerular Filtration Rate 9.2L, Calcium Level 8.0L, Magnesium Level 2.1 CBC/BMP Laboratory Tests 06/17/20 05:22 FSBS Laboratory Tests Test 06/16/20 11:35 06/16/20 17:31 06/16/20 21:00 Range/Units Bedside Glucose (Misc Panel) 198 157 215 83-110 MG/DL Microbiology Microbiology 06/16/20 Urine Culture, Received Pending 06/15/20 Respiratory Virus Panel (PCR) (NATHAN) - Final, Complete 06/14/20 Blood Culture - Preliminary, Resulted No Growth after 48 hours. All Specime... 06/14/20 Blood Culture - Preliminary, Resulted No Growth after 48 hours. All Specime... Discharge Medications Scheduled Amoxicillin/Potassium Clav (Amox-Clav 500-125 mg Tablet) 1 Each Tablet, 500 MG PO Q12H Ergocalciferol (Vitamin D2) (Vitamin D2) 50,000 Units Cap, 50,000 UNITS PO 1XWK, (Reported) SATURDAYS Folic Acid/Vit B Complex and C (Adela-Liza Tablet) 1 Tab Tab, 1 TAB PO QPM, (Reported) @1700 Gabapentin (Gabapentin) 100 Mg Capsule, 100 MG PO BID, (Reported) Glipizide (Glipizide ER) 5 Mg Tab.er.24, 5 MG PO BID, (Reported) 0800, 1700 Pantoprazole Sodium (Pantoprazole Sodium) 40 Mg Tablet.dr, 40 MG PO DAILY, (Reported) Propranolol HCl (Propranolol HCl) 10 Mg Tab, 5 MG PO DAILY, (Reported) Propranolol HCl (Propranolol HCl) 10 Mg Tab, 10 MG PO QPM, (Reported) @1700 Sevelamer Carbonate (Sevelamer Carbonate) 800 Mg Tablet, 800 MG PO QPM, (Reported) @ 1700 Scheduled PRN Sildenafil Citrate (Viagra) 50 Mg Tablet, 50 MG PO ASDIRECTED PRN for ERECTILE DYSFUNCTION, (Reported) Allergies Coded Allergies: No Known Allergies (Unverified , 06/14/20) SANCHEZ JIMENEZ MD Jun 17, 2020 08:56
[2020-06-17] MEDS ORDERED: AUGMENTIN 500 MG TAB PO SCH (09:00)
--- NOTE | 2020-06-17 10:58 | CR ---
DATE OF CONSULTATION: 06/15/2020 REQUESTING PHYSICIAN: Dr. Eng CONSULTING PHYSICIAN: Dr. Mayorga REASON FOR CONSULTATION: Management of end-stage renal disease on hemodialysis in this patient admitted with sepsis. HISTORY OF PRESENT ILLNESS: Kristopher Galvan is well known to me from the outpatient hemodialysis unit. He is a 70-year-old male with a past medical history of end-stage renal disease on hemodialysis on a Sunday/Sunday/Sunday schedule; coronary artery disease, status post coronary artery bypass graft (CABG); insulin-dependent diabetes mellitus; chronic wounds of the right lower extremity and right-sided hip and buttock; and other comorbid conditions mentioned below. Patient follows with wound center for his wounds of the right leg and buttock. He reports over the weekend he felt increasing dizziness and fatigue. Prior to going to dialysis on Sunday, he took Tylenol; however, at dialysis he spiked a fever of 102 and he was given vancomycin and blood cultures were drawn in the dialysis unit and he was sent to the emergency room for further evaluation. Patient was subsequently admitted for sepsis when he was found to be febrile, hypotensive and with lactic acidosis. He received a little over three liters of IV fluid overnight and was started on broad-spectrum antibiotics pending cultures and infectious workup. Patient was also significantly hyperkalemic despite being dialyzed just before coming to the emergency room. He was treated with Kayexalate along with the IV fluids. Patient was seen and examined this morning at the bedside and tells me that he continues to feel dizzy and lightheaded, and has not much energy. PAST MEDICAL HISTORY: 1. End-stage renal disease on hemodialysis, Sunday/Sunday/Sunday schedule. 2. Diastolic congestive heart failure. 3. Moderate aortic stenosis. 4. Chronic wounds for which he follows with the wound center located on the hips and buttocks. 5. History of left thigh abscess with Staphylococcus epidermidis bacteremia in September of 2019. 6. Coronary artery disease/CABG. 7. Vdy-vsgplvs-lzahaqjzn diabetes mellitus. 8. History of CVA. 9. Fatty liver. 10. Esophageal varices. 11. Obesity. 12. History of pleural effusion requiring right-sided chest tube placement. 13. Anemia of chronic renal failure. 14. Secondary hyperparathyroidism or renal origin. 15. Neuropathy. 16. Erectile dysfunction. PAST SURGICAL HISTORY: 1. AV fistula, right arm. 2. CABG. 3. Endoscopy. 4. Appendectomy. 5. Right third toe amputation. 6. Cataract surgery. 7. Resection of colonic polyps. 8. Chest tube placement. ALLERGIES: No known drug allergies. SOCIAL HISTORY: He is a . He does not smoke, drink or use illicit drugs. FAMILY HISTORY: Significant for diabetes. HOME MEDICATIONS: Reviewed and include: - Vitamin B2, 50,000 units once a week - Renavit one tab p.o. daily - Gabapentin 100 mg p.o. twice a day - Glipizide 5 mg p.o. twice a day - Protonix 40 mg p.o. daily - Propanolol 10 mg p.o. nightly, 5 mg p.o. in the morning - Renvela 800 mg p.o. with meals REVIEW OF SYSTEMS: CONSTITUTIONAL: He reports fever, chill and fatigue. EYES: Denies visual changes or tearing. EARS, NOSE, AND THROAT: Denies rhinorrhea or odynophagia. CARDIAC: Reports history of diastolic heart failure. Denies palpitations or chest pain. Has coronary artery disease. RESPIRATORY: Denies shortness of breath or cough. GASTROINTESTINAL: Denies nausea, vomiting or diarrhea. GENITOURINARY: Makes minimal urine. Denies hematuria. MUSCULOSKELETAL: Denies acute myalgias or arthralgias. SKIN: Has scattered wounds on the right hip and buttock, and on the right arm for which he sees wound care. ENDOCRINE: Reports diabetes and secondary hyperparathyroidism. HEMATOLOGIC: Reports anemia of chronic renal failure. Denies anticoagulant use. PSYCHIATRIC: Denies anxiety or depression. NEUROLOGIC: Has a history of CVA in the past. Denies seizure. Remainder of review of systems is negative or as mentioned in history of present illness (HPI). PHYSICAL EXAMINATION: VITAL SIGNS: Temperature: Maximum temperature 101.2; current temperature 99.4. Pulse 101; respiratory rate 20; blood pressure 92/54; saturating 94% on room air. Intake overnight was about three liters. Weight on the bed scale today is 110.5 kg. GENERAL: The patient is seen lying in bed, head of the bed elevated; elderly male appears fatigued and tired but not in apparent distress. He is awake, alert, interactive, conversational, and cooperative with the physical exam. HEENT: Extraocular muscles are intact. Tongue is moist. NECK: Supple. Jugular veins are not elevated. HEART: Sounds are regular; S1 and S2. There is trace edema in the legs. LUNGS: Clear to auscultation bilaterally. No crackle, rub or rhonchus. He is comfortable on room air. ABDOMEN: Obese, soft and nontender. There are bowel sounds. EXTREMITIES: Show no clubbing, cyanosis or edema. NEUROLOGIC: He is oriented x3; interactive at baseline mentation. PSYCHIATRIC: Appropriate mood and affect. SKIN: Normal temperature and turgor. LABORATORY DATA: White count 9.6, hemoglobin 11.2, platelets 80. Sodium 137, potassium 5.7 (initially, potassium 6.2 overnight), BUN 22. Lactic acid 2.5. Procalcitonin 1.1. MICROBIOLOGY: Blood cultures pending. IMAGING DATA: Chest x-ray negative for effusion or infiltrates. INPATIENT MEDICATIONS: - He has received three liters of normal saline and I have reduced the rate of normal saline to 40 mL/hr. - He is receiving vancomycin with dialysis and Zosyn 4.5 grams IV every 12 hours. - Tylenol p.r.n. - Mylanta p.r.n. - Gabapentin 100 mg p.o. twice a day - Heparin 5000 units subcutaneous every 12 hours - Insulin - Protonix 40 mg p.o. daily - Propanolol 5 mg p.o. daily - Renvela 800 mg p.o. daily PROBLEMS: 1. Sepsis with hypotension and fever, and mild lactic acidosis. Patient required a little over three liters of IV fluids overnight to keep his mean arterial pressure above 65. Blood cultures are pending. Lung imaging was unremarkable. Abdominal exam is benign. Suspect that his source is the multiple skin and soft tissue wounds. He is on broad-spectrum antimicrobials as per the primary team. I cut down the rate of normal saline to 40 mL/hr. 2. End-stage renal disease on hemodialysis on Sunday/Sunday/Sunday schedule. Patient received a full treatment on Sunday as an outpatient. Strangely, he was hyperkalemic despite being dialyzed and this was medically treated with Kayexalate and repeat potassium level is ordered for the evening. I plan to dialyze him on Sunday as per his maintenance schedule with minimal fluid to be removed in view of sepsis and hypotension. 3. Hyperkalemia. His potassium was 6.2 when he arrived to the emergency room although he had just been dialyzed prior to arrival in the ER. It does not seem to be a clearance issues. His BUN was only 17 indicating appropriate urea reduction. He received a dose of Kayexalate. We will repeat the potassium level in the afternoon and if still elevated, we will consider doing an extra dialysis treatment. 4. Cirrhosis with portal hypertension and fatty liver. He is on propanolol twice a day at home. I have added generous holding parameters in view of his sepsis and hypotension; and I have, for the time, being discontinued the 10 mg propanolol dose. 5. Chronic wounds. He is pending wound consult via telemedicine and dressing changes as per primary team. Patient is on broad-spectrum antibiotics pending culture results. 6. Thrombocytopenia. Platelet count is less than 100 and I would plan for heparin-free dialysis. 7. Anemia of chronic renal failure. Hemoglobin is at target and Aranesp will be restarted as needed. MTDD
--- NOTE | 2020-06-17 14:49 | IPN ---
DATE: 06/17/2020 SUBJECTIVE: Kristopher is seen and examined this morning at the bedside. He reports he feels well, reports he has been out of bed and ambulating around the room. Denies lightheadedness, dizziness or dyspnea on exertion, is saturating well on room air. He was dialyzed yesterday with 1 liter of fluid removed. He is discharge pending. PHYSICAL EXAMINATION: Vital signs: Temperature 98.1, pulse 93, respiratory rate 16, blood pressure 110/70, saturating 97% on room air. Intake yesterday was 1475, dialysis removed 1 liter, weight on the bed scale today is not recorded. General: Patient is seen sitting up in bed, edge of the bed, legs dangling. Elderly male in no apparent distress. HEENT: Extraocular muscles are intact. Tongue is moist. Neck: Supple. Jugular veins are not elevated. Heart: Sounds are regular, S1 and S2. Extremities: There is 1+ edema in the right lower extremity and no edema in the left extremity. There is a right arm fistula which is patent with thrill and bruit. Lungs: Clear to auscultation. There are no crackles or rales. Abdomen: Soft, obese and nontender. Skin: The wounds were not examined today. Normal temperature and turgor. Neurologic: Oriented times 3, interactive, at baseline mentation. LABORATORY DATA: Sodium 136, potassium 4.5, bicarbonate 27, magnesium 2.1. Hemoglobin 10. Blood cultures no growth for 48 hours times 2 sets. INPATIENT MEDICATIONS: Patient is receiving Augmentin 500 mg by mouth q12h. The remainder of the medications are unchanged from prior. PROBLEMS/PLAN: 1. End-stage renal disease: On hemodialysis on Sunday, Sunday, Sunday schedule. He was dialyzed yesterday with 1 liter of fluid removed. He tolerated the treatment well. His fistula is in good use. His electrolytes and volume status are acceptable. I will speak with the outpatient dialysis charge nurse regarding adjusting his estimated dry weight. 2. Status post abscess secondary to skin and soft tissue infection: Patient symptomatically improved with I.V. fluids and with broad spectrum antibiotics. He is being discharged to complete a course of Augmentin. His urinalysis was also suspicious and a urine culture is pending. 3. Status post hyperkalemia: It resolved with Kayexalate and with dialysis and has not reoccurred. There are no signs of recirculation syndrome related to the fistula. 4. Anemia of chronic renal failure: Hemoglobin is appropriate at 10 and he will continue with Aranesp and anemia protocol in the outpatient dialysis unit. Patient is discharge pending today which is acceptable from a nephrology point of view. He will follow up in the dialysis unit tomorrow and will also see his primary care within a week. UZMA
== END 2020-06-17 12:06 | disposition home or self-care (01) | DRG 871 ==
LOC: M ED 21:50 → M ED INP 06-15 00:06 → M PCU 06-15 04:30
PROVIDERS: ADMIT Internal Medicine; ATTEND Internal Medicine
PROC: 5A1D70Z Performance of Urinary Filtration, Intermittent, Less than 6 Hours Per Day (ICD-10-PCS; principal; 2020-06-15)
DX: A41.9 Sepsis, unspecified organism (principal); N18.6 End stage renal disease; K76.6 Portal hypertension; E87.2 Acidosis; N39.0 Urinary tract infection, site not specified; I69.354 Hemiplegia and hemiparesis following cerebral infarction affecting left non-dominant side; N25.81 Secondary hyperparathyroidism of renal origin; L08.9 Local infection of the skin and subcutaneous tissue, unspecified; K74.60 Unspecified cirrhosis of liver; D69.59 Other secondary thrombocytopenia; K21.9 Gastro-esophageal reflux disease without esophagitis; I25.10 Atherosclerotic heart disease of native coronary artery without angina pectoris; E87.5 Hyperkalemia; E66.8 Other obesity; D69.6 Thrombocytopenia, unspecified; E11.40 Type 2 diabetes mellitus with diabetic neuropathy, unspecified; K26.9 Duodenal ulcer, unspecified as acute or chronic, without hemorrhage or perforation; Z79.899 Other long term (current) drug therapy; Z95.1 Presence of aortocoronary bypass graft; Z68.37 Body mass index [BMI] 37.0-37.9, adult; D63.1 Anemia in chronic kidney disease; N52.9 Male erectile dysfunction, unspecified

== ENCOUNTER → 2020-07-23 | Outpatient (CLI) | payer MEDICARE, BC, OTHER ==
[~2020-07-23] MED LIST changes: +AMOX500T2 PO; +SILD50TA PO
[2020-07-23 11:34] LABS: ALBUMIN 3.1 GM/DL (3.2-5.2); BILIRUBIN,DIRECT 0.2 MG/DL (0.0-0.2); BILIRUBIN,TOTAL 0.8 MG/DL (0.2-1.0); TOTAL PROTEIN 7.9 GM/DL (6.4-8.2)
== END ==
LOC: M LAB 10:03
PROVIDERS: ATTEND Internal Medicine Gastroenterology
DX: K74.60 Unspecified cirrhosis of liver (principal); I85.00 Esophageal varices without bleeding

== ENCOUNTER 2020-08-16 11:23 | Inpatient (IN) | payer MEDICARE, BC, OTHER ==
[2020-08-16] VITALS (10 sets, daily range): BP systolic 84–143; BP diastolic 51–74
[~2020-08-16] VITALS: Ht 172.7 cm; Wt 113.8 kg
[2020-08-16] MEDS ORDERED: EZET10TA21 PO (11:46)
[2020-08-16] MEDS ORDERED: PLAV1TAB2 PO (11:46)
[2020-08-16] MEDS ORDERED: ASPI81CH10 PO (11:46)
[2020-08-16] MEDS ORDERED: ATOR40TA75 PO (11:46)
[2020-08-16] MEDS ORDERED: Nephro-Vite (11:46)
[2020-08-16 12:22] LABS: BASO % 0.9 % (0.0-1.0); EOS # 0.2 10^3/uL (0.0-0.5); EOS % 3.5 % (0.0-3.0); HEMATOCRIT 31.6 % (42.0-52.0); HEMOGLOBIN 10.1 g/dl (13.5-17.5); LYMPH # 0.9 10^3/uL (1.5-5.0); LYMPH % 18.8 % (24.0-44.0); MEAN CORPUSCULAR HEMOGLOBIN 27.8 pg (27.0-33.0); MEAN CORPUSCULAR VOLUME 87.1 fl (80.0-96.0); MONO # 0.5 10^3/uL (0.0-0.8); MONO % 11.5 % (0.0-5.0); NEUTROPHILS # 2.9 10^3/uL (1.5-8.5); NEUTROPHILS % 65.1 % (36.0-66.0); RED BLOOD COUNT 3.63 10^6/uL (4.30-6.10); WHITE BLOOD COUNT 4.5 10^3/uL (4.0-10.0)
[2020-08-16 12:23] LABS: PLATELET COUNT, AUTOMATED 96 10^3/uL (150-450)
--- NOTE | 2020-08-16 13:05 | REP ---
INDICATION: fluid overload COMPARISON: 06/14/2020 TECHNIQUE: Portable AP view of the chest FINDINGS: The mediastinum and cardiac silhouette are stable and cardiomegaly with prior sternotomy and CABG again noted. The lung bruno demonstrate mild right basilar fibroatelectatic changes without acute consolidation, effusion, or pneumothorax. IMPRESSION: No acute consolidation or effusion. <Electronically signed by Alexandre Woody > 08/16/20 [id number]
[2020-08-16 13:26] LABS: ALBUMIN 3.2 GM/DL (3.2-5.2); ALT/SGPT 25 U/L (12-78); BILIRUBIN,DIRECT 0.3 MG/DL (0.0-0.2); BILIRUBIN,TOTAL 0.7 MG/DL (0.2-1.0); CK-MB VALUE MASS 4.6 NG/ML (<3.6); CPK CREATINE PHOSPHOKINASE 175 U/L (39-308); MB/CK RELATIVE INDEX 2.63 (< OR =4); TOTAL PROTEIN 8.1 GM/DL (6.4-8.2); TROPONIN I < 0.02 NG/ML (< 0.10)
[2020-08-16] MEDS ORDERED: HumuLIN R (REGULAR) INSULIN (NovoLIN R) **100U/ML** PER UNIT IV STA (13:26)
[2020-08-16] MEDS ORDERED: DEXTROSE 50% 50 ML SYRINGE IV STA (13:26)
[2020-08-16 13:27] LABS: POTASSIUM SERUM 8.1 MEQ/L (3.5-5.1)
[2020-08-16] MEDS ORDERED: CALCIUM CHLORIDE 10% 1 GM in D5W 100 ML IV ONE (13:30)
[2020-08-16] MEDS ORDERED: ACETAMINOPHEN TAB 650MG DOSE (2X325MG) PO PRN (14:00)
[2020-08-16] MEDS ORDERED: GLUCOSE 4GM CHEW TABLET PO PRN (14:30)
[2020-08-16] MEDS ORDERED: GLUCAGON INJ 1MG VIAL SC PRN (14:30)
[2020-08-16] MEDS ORDERED: DEXTROSE 50% 50 ML SYRINGE IV PRN (14:30)
[2020-08-16 14:37] LABS: RSV AMPLIFICATION NEGATIVE (NEGATIVE)
--- NOTE | 2020-08-16 15:21 | HPEPDOC ---
[facility] Medical History & Physical Date of Admission Aug 16, 2020 Date of Service: Aug 16, 2020 Attending Physician: JEFF GILLIS MD History and Physical CHIEF COMPLAINT: SOB HISTORY OF PRESENT ILLNESS: 70-year-old with a complex medical history significant for obesity, IDDM, CAD, ESRD on HD, hx of CVA with residual L sided parasthesias and medical non- compliance who presented to the ED with weakness, CARRERA and inability to ambulate i/s/o of missing HD in jennifer volume overload and found on evaluation to be normotensive, tachycardic to 108 and otherwise saturating well on room air. St udies showed hyperkalemia to 8, Na 136, cl 104, bicarb 23, BUN 92, Cr 12.6, WBC 4.5, hgb 10.1, platelets 96, LFTs wnl and CXR was unimpressive without acute consolidations or effusions. Nephrology was consulted and he is being admitted to the ICU for emergent dialysis. In the meantime, he as received calcium gluconate and insulin/dextrose. He otherwise denies recent fever, chills, palpitations, chest pain, abdominal pain or diarrhea. 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 Age related small vessel white matter angiopathic gliosis / Diffuse cerebellar atrophy Fatty liver / Liver cirrhosis w hx of decompensated hepatic encephalopathy & esophageal varices Class II obesity History of nonbleeding duodenal ulcer Appendectomy Right third toe Amputation to manage osteomyelitis Left eye cataract surgery Resection of sessile colonic polyps Left medial meniscal tear managed with with partial medial meniscectomy of the posterior horn of the medial meniscus Grade 2 chondromalacia of the medial femoral condyle managed with chondroplasty of the medial femoral condyle History of right pleural effusion requiring right-sided chest tube placement SOCIAL HISTORY: Doesn't smoke Doesn't drink Is a FAMILY HISTORY: Diabetes Cancer ALLERGIES: Please see below. HOME MEDICATIONS: Please see below. PHYSICAL EXAMINATION: Vital Signs: HDS, afebrile, on room air, see below for details GEN: Morbidly obese, NAD HEENT:NCAT, EOMI, anicteric, MMM CVS: RRR, 3/6 holosystolic murmur loudest at RUSB but heard throughout the entire precordium LUNGS: able to speak full sentences, crackles on posterior lung bruno closer to the bases, on room air ABDOMEN: Obese, soft, normoactive sounds, NTND EXTREMITIES: WWP, thready DP pulses, 2+ dependent LE edema, chronic skin changes Skin Has various healing wounds and hyperpigmented scars, has one RLE lower wright wound with folder over 4x4 gauze with clear adhesive dressing over it, as well as one plantar RLE wound that beginning to scab without drainage. NEURO: CN 3-12 are grossly intact, speech is not dysarthric, moving all extremities PSYCH: AOx3 LABORATORY DATA AND IMAGING: summarized above, see below for details ASSESSMENT: 70year-old M with a history of ESRD, NIDDM, CAD/CABG, history of CVA, liver cirrhosis w portal HTN, obesity, and multiple surgeries who presented with weakness, SOB and inability to ambulate after missing HD and found to be hyperkalemic to 8 now being admitted to the ICU for emergent dialysis with nephrology onboard. 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 -not on statin, unclear why, possibly because of liver disease? Morbid obestiy: BMI of 37.5 and co-existing DM complicates care -Will defer to PCP for STOP BANG questionnaire, revolving field assembler consult and potential bariatic surgery consult Inability to ambulate with acute on chronic deconditioning: -PT/OT -correcting electrolyte abnormalities and volume status with HD -check BCx, UA/UCx DVT PROPHYLAXIS: TEDs and SCDs DISPOSITION: home after more than 2 midnight's stay Vital Signs Vital Signs Date Time Temp Pulse Resp B/P (MAP) Pulse Ox O2 Delivery O2 Flow Rate FiO2 08/16/20 13:28 98.6 108 20 112/56 (74) 99 Room Air Laboratory Data Labs 24H Laboratory Tests 2 08/16/20 11:36: Bedside Glucose (Misc Panel) 179H 08/16/20 11:49: Immature Granulocyte % (Auto) 0.2, Neutrophils (%) (Auto) 65.1, Lymphocytes (%) (Auto) 18.8L, Monocytes (%) (Auto) 11.5H, Eosinophils (%) (Auto) 3.5H, Basophils (%) (Auto) 0.9, Neutrophils # (Auto) 2.9, Lymphocytes # (Auto) 0.9L, Monocytes # (Auto) 0.5, Eosinophils # (Auto) 0.2, Basophils # (Auto) 0.0, Nucleated Red Blood Cells % (auto) 0.0, Immature Platelet Fraction 2.3, Total Bilirubin 0.7, Direct Bilirubin 0.3H, Aspartate Amino Transf (AST/SGOT) 33, Alanine Aminotransferase (ALT/SGPT) 25, Alkaline Phosphatase 164H, Total Creatine Kinase 175, Creatine Kinase MB 4.6H, Creatine Kinase MB Relative Index 2.63, Troponin I < 0.02, Total Protein 8.1, Albumin 3.2, Albumin/Globulin Ratio 0.7, Thyroid Stimulating Hormone (TSH) 5.620H 08/16/20 12:03: 08/16/20 12:24: POC Glucose (Misc Panel) 172H, POC Sodium (Misc Panel) 136, POC Potassium (Misc Panel) 8.0*H, POC Chloride (Misc Panel) 104, POC Total CO2 (Misc Panel) 23.0, POC Blood Urea Nitrogen (Misc Panel 92H, POC Ionized Calcium (Misc Panel) 4.0L, POC Creatinine (Misc Panel) 12.6H, POC Hematocrit (Misc Panel) 31.0L CBC/BMP Laboratory Tests 08/16/20 11:49 Home Medications Scheduled Ergocalciferol (Vitamin D2) (Vitamin D2) 50,000 Units Cap, 50,000 UNITS PO 1XWK SATURDAYS Folic Acid/Vit B Complex and C (Adela-Liza Tablet) 1 Tab Tab, 1 TAB PO QPM @1700 Gabapentin (Gabapentin) 100 Mg Capsule, 100 MG PO BID Glipizide (Glipizide ER) 5 Mg Tab.er.24, 5 MG PO BID 0800, 1700 Pantoprazole Sodium (Pantoprazole Sodium) 40 Mg Tablet.dr, 40 MG PO DAILY Propranolol HCl (Propranolol HCl) 10 Mg Tab, 5 MG PO DAILY Propranolol HCl (Propranolol HCl) 10 Mg Tab, 10 MG PO QPM @1700 Sevelamer Carbonate (Sevelamer Carbonate) 800 Mg Tablet, 800 MG PO QPM @ 1700 Scheduled PRN Sildenafil Citrate (Viagra) 50 Mg Tablet, 50 MG PO ASDIRECTED PRN for ERECTILE DYSFUNCTION Miscellaneous Medications Aspirin (Aspirin) 81 Mg Tab.chew Atorvastatin Calcium (Atorvastatin Calcium) 40 Mg Tablet Clopidogrel Bisulfate (Plavix) 75 Mg Tablet Ezetimibe (Ezetimibe) 10 Mg Tablet [Nephro-Liza] Allergies Coded Allergies: No Known Allergies (Unverified , 06/14/20) A-FIB/CHADSVASC A-FIB History Current/History of A-Fib/PAF?: No Current PO Anticoag Therapy: No Age/Risk Factor Scoring CHADSVASC: CHADSVASC Response (Comments) Value Age Risk Factor Age 65-74 years old 1 Gender Risk Factor Male 0 Hx of CHF Yes 1 Hx of HTN Yes 1 Hx of Stroke/TIA/or VTE Yes 2 Hx of Diabetes Yes 1 Hx of Vascular Disease Yes 1 Total 7 Treatment Treatment ordered: NONE Reason Anticoagulant not given: Not indicated/[id number] JEFF GILLIS MD Aug 16, 2020 14:28
[2020-08-16] MEDS ORDERED: NEPH1TAB11 PO (17:02)
[2020-08-16] MEDS: EZETIMIBE 10 MG TAB (ZETIA) PO SCH (17:13)
[2020-08-16] MEDS: (RENVELA) SEVELAMER **CARBONate** 800 MG TAB PO SCH (17:13)
[2020-08-16] MEDS: HumaLOG INSULIN (NovoLOG) PER UNIT SC SCH ×2 (17:13→21:00)
[2020-08-16] MEDS: PROPRANOLOL 10 MG TAB PO SCH (18:00)
--- NOTE | 2020-08-16 18:49 | CR ---
CONSULTATION DATE: 08/16/2020 REASON FOR CONSULTATION: Severe hyperkalemia in this gentleman with end-stage renal disease. HISTORY OF PRESENT ILLNESS: Mr. Tyson is a 70-year-old gentleman with a known history of diabetes, hypertension, coronary artery disease, congestive heart failure, end-stage renal disease, and peripheral vascular disease. The patient lives alone and did miss his dialysis. He recently had coronary angioplasty with stent placement and has been somewhat weak. He missed his dialysis on Sunday as he could not get out of the house. Today, he was brought to the emergency room via ambulance and was found to have a potassium level of 8.1. Nephrology consultation was requested for urgent dialysis and the patient is seen on his bedside. PAST MEDICAL AND SURGICAL HISTORY: 1. Longstanding history of diabetes. 2. Coronary artery disease, status post angioplasty with multiple stents. 3. End-stage renal disease. 4. Prior stroke. 5. Peripheral vascular disease. 6. Fatty liver, possible cirrhosis. 7. Obesity. 8. Duodenal ulcer. 9. Decubitus ulcers. 10. Appendectomy. 11. Right third toe amputation. 12. Cataract surgery. 13. Colon polyps. 14. Medial meniscal tear. 15. Right pleural effusion requiring right-sided chest tube placement. PERSONAL AND SOCIAL HISTORY: The patient is and lives by himself. He denies any tobacco or alcohol use. FAMILY HISTORY: Significant for diabetes and cancer. ALLERGIES: The patient has no known drug allergies. HOME MEDICATIONS: - vitamin D 50,000 units once a week - multivitamin one tablet daily - gabapentin 100 mg b.i.d. - glipizide ER 5 mg b.i.d. - pantoprazole 40 mg daily - propranolol 10 mg daily - Renvela 800 mg with meals - aspirin 81 mg daily - atorvastatin 40 mg daily - Plavix 75 mg daily - Zetia 10 mg daily REVIEW OF SYSTEMS: The patient denies any fever or chills. He denies any falls. He has been just very weak and unable to get up or ambulate. Ears, nose, and throat unremarkable. Cardiovascular system is significant for coronary artery disease and recent angioplasty with stent placement. Respiratory system negative for cough or hemoptysis. GI system is negative for vomiting or diarrhea. system is negative for dysuria or hematuria. Endocrine system significant for secondary hyperparathyroidism and diabetes. Hematologic system is significant for anemia due to end-stage renal disease. He is not on terminal makeup operator anticoagulation. Musculoskeletal system is significant for history of decubitus ulcer in the past and degenerative arthritis. Psychosocial system negative for depression or anxiety. Neurologic system negative for seizures, but he does have a prior history of stroke without any significant residual weakness. PHYSICAL EXAMINATION: VITAL SIGNS: Temperature 97.8 degrees Fahrenheit, heart rate 80 per minute, respiratory rate 16 per minute, blood pressure 143/74 mmHg, and oxygen saturation 99% on room air. HEAD: Atraumatic. NECK: Supple. JVD mildly elevated. There is no oral thrush or ulcers. HEART: Sounds are regular and without a pericardial friction rub. LUNGS: Sounds clear to auscultation. ABDOMEN: Obese and nontender. Bowel sounds are present. EXTREMITIES: Without any cyanosis or clubbing. Right arm AV fistula is patent. There is mild edema on the lower extremities. NEUROLOGIC: He seems grossly intact and at his baseline mentation. LABORATORY DATA: White blood cell count 4.5, hemoglobin 10.1, hematocrit 31.6, and platelets 96,000. Glucose 172, sodium 136, potassium 8.1, chloride 104, CO2 of 23, BUN 92, and creatinine 12.6. PROBLEMS: 1. Severe hyperkalemia most likely related to dietary indiscretion and missed hemodialysis treatment in the setting of end-stage renal disease. Urgent hemodialysis has already been arranged and in fact, we were waiting in the progressive care unit for the patient to arrive from the emergency room. He is going to be dialyzed right away and his electrolytes will be rechecked. We will use 1.0 mEq potassium bath. 2. End-stage renal disease. The patient missed one hemodialysis on Sunday and was last dialyzed on Sunday probably. He is gong to be dialyzed tonight. He does not seem to have any uremic symptoms at present. 3. Congestive heart failure. His volume status seems slightly decompensated. We will try to remove about 3 liters of fluid as tolerated. 4. Anemia. He has chronic anemia related to end-stage renal disease and prior history of gastrointestinal (GI) bleed. At present, his anemia is stable and does not need any urgent intervention. 5. Coronary artery disease. The patient recently had angioplasties and stents. I will recommend to continue with aspirin and Plavix in addition to his statin therapy. 6. Diabetes. The patient has a longstanding history of diabetes. At present, we will hold off on his oral hypoglycemic and monitor blood sugars and provide coverage as needed. I think his glipizide should be stopped in the jail anyway. Thank you for involving me in the care of Mr. Tyson. I will follow him along with you.
[2020-08-16] MEDS: ATORVASTATIN 20 MG TAB PO SCH (20:49)
[2020-08-16] MEDS: GABAPENTIN 100 MG CAP PO SCH (20:49)
[2020-08-17] VITALS (11 sets, daily range): BP systolic 85–130; BP diastolic 50–70
[2020-08-17 06:00] LABS: HEMATOCRIT 29.5 % (42.0-52.0); HEMOGLOBIN 9.1 g/dl (13.5-17.5); MEAN CORPUSCULAR HGB CONC 30.8 g/dl (32.0-36.5); MEAN CORPUSCULAR VOLUME 87.5 fl (80.0-96.0); RED BLOOD COUNT 3.37 10^6/uL (4.30-6.10); WHITE BLOOD COUNT 3.8 10^3/uL (4.0-10.0)
[2020-08-17 06:01] LABS: PLATELET COUNT, AUTOMATED 82 10^3/uL (150-450)
[2020-08-17 06:32] LABS: CALCIUM LEVEL 8.1 MG/DL (8.8-10.2); CREATININE FOR GFR 8.4 MG/DL (0.70-1.30); GLOMERULAR FILTRATION RATE 6.7 (>42); MAGNESIUM LEVEL 2.5 MG/DL (1.8-2.4); POTASSIUM SERUM 5.3 MEQ/L (3.5-5.1)
--- NOTE | 2020-08-17 06:43 | ECGEPIP ---
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
[2020-08-17] MEDS: HumaLOG INSULIN (NovoLOG) PER UNIT SC SCH ×4 (07:30→21:00)
[2020-08-17] MEDS: PANTOPRAZOLE 40MG TAB (PROTONIX) PO SCH (08:51)
[2020-08-17] MEDS: CLOPIDOGREL 75 MG TAB PO SCH (08:51)
[2020-08-17] MEDS: ASPIRIN 81 MG CHEW TABLET PO SCH (08:51)
[2020-08-17] MEDS: GABAPENTIN 100 MG CAP PO SCH ×2 (08:51→21:52)
--- NOTE | 2020-08-17 12:52 | IPN ---
NEPHROLOGY PROGRESS NOTE DATE: 08/17/2020 SUBJECTIVE: Mr. Tyson is seen this morning on his bedside. He is sitting in the chair at the time of my visit. He was admitted yesterday with generalized weakness and was noticed to have severe hyperkalemia with a potassium level of 8.1. He underwent emergency hemodialysis last evening. Patient denies any dyspnea, chest pain, nausea or vomiting. PHYSICAL EXAMINATION: Temperature 98.8 degrees Fahrenheit, heart rate 84 per minute and respiratory rate 18 per minute. Blood pressure 109/62 mmHg and oxygen saturation 99% on room air. Head: Atraumatic. Neck: Supple and JVD not elevated. Heart: Sounds are regular. Lungs: Clear to auscultation. Abdomen: Obese, soft and nontender and bowel sounds are normal. Extremities: Without any cyanosis or clubbing. Right arm AV fistula is patent. Neurologically: He is awake, alert and oriented times 3. LABORATORY DATA: Today's labs show WBC count 3.8, hemoglobin 9.1, hematocrit 29.5, platelets 82,000. Sodium 136, potassium 5.3, chloride 97, BUN 46, creatinine 8.4. Calcium 8.1 and magnesium 2.5. PROBLEMS/PLAN: 1. Severe hyperkalemia: Potassium level improved significantly with hemodialysis last evening. At this point we will wait for further dialysis tomorrow. 2. End-stage renal disease: Patient did miss his dialysis treatment on Sunday and was dialyzed last evening. Next dialysis will be done on the and then hopefully he can be discharged after dialysis. 3. Congestive heart failure: Volume status reasonably well compensated and no intervention is needed at present. 4. Coronary artery disease: Patient is currently asymptomatic and does not need any specific intervention. His chronic medications will be continued. 5. Diabetes: Blood sugars are well controlled without any oral hypoglycemic. I would recommend to permanently stop his oral hypoglycemic and we can probably monitor him as an outpatient and consider a different medication compared to glipizide that he has been taking in view of his end-stage renal disease. 6. Generalized weakness: Patient reports that he did have some physical therapy and walked a short distance. I will wait for a home safety evaluation.
[2020-08-17] MEDS: EZETIMIBE 10 MG TAB (ZETIA) PO SCH (17:40)
[2020-08-17] MEDS: (RENVELA) SEVELAMER **CARBONate** 800 MG TAB PO SCH (17:40)
[2020-08-17] MEDS: PROPRANOLOL 10 MG TAB PO SCH (17:41)
--- NOTE | 2020-08-17 19:38 | IPNPDOC ---
Subjective Date Seen The patient was seen on 08/17/20. Subjective Chief Complaint/HPI Mr. Tyson is a 70 year old male with ESRD who is noncompliant with dialysis here with weakness and found to have hyperkalemia with potassium of 8. He had dialysis on admission and today, potassium is 5.3. Denies any fever, chest pain, dyspnea, abdominal pain, or diarrhea. Nephrology is following and planning to dialyze tomorrow and possible discharge tomorrow. Objective Physical Examination General Exam: Positive: Alert, Cooperative Eye Exam: Positive: EOMI; Negative: Sclera icteric ENT Exam: Positive: Atraumatic Neck Exam: Positive: Supple Chest Exam: Positive: Clear to auscultation Heart Exam: Positive: Rate Normal, Regular Rhythm Abdomen Exam: Positive: Normal bowel sounds, Soft; Negative: Tenderness Extremity Exam: Positive: Edema (bilateral pitting edema) Neuro Exam: Positive: Cranial Nerves 3-12 NL Psych Exam: Positive: Mental status NL, Mood NL Assessment /Plan Assessment Mr. Tyson is a 70 year old male with ESRD who is noncompliant with dialysis here with weakness and found to have hyperkalemia with potassium of 8. He tolerated dialysis yesterday. Planning for dialysis tomorrow. If he does well with physical therapy tomorrow, he may be able to be discharged home Plan/VTE VTE Prophylaxis Ordered?: Yes Plan 1. Hyperkalemia 2/2 missed dialysis -Noncompliant with dialysis, last session was on Sunday (missed Sunday) -Nephrology following, recommendations appreciated -Planning for one more session of dialysis tomorrow 2. ESRD noncompliant with dialysis -Nephrology following, recommendations appreciated -Continue sevelamer 3. Liver cirrhosis with portal hypertension -Possibly secondary to fatty liver -History of esophageal varices -Continue propranolol 4. DM -Sliding scale insulin 5. Neuropathy -Secondary to DM -Continue with gabapentin 6. Morbid obesity -BMI of 38.1 -Patient will need to discuss with PCP about weight loss strategies 7. DVT ppx -SCD and TEDs VS, I&O, 24H, Fishbone Vital Signs/I&O Vital Signs Date Time Temp Pulse Resp B/P (MAP) Pulse Ox O2 Delivery O2 Flow Rate FiO2 08/17/20 17:41 124/60 08/17/20 15:00 97.6 90 18 97 Room Air 08/16/20 19:45 2.0 I&O- Last 24 Hours up to 6 AM 08/17/20 06:00 Intake Total 260 ml Output Total 3000 ml Balance -2740 ml Laboratory Data 24H LABS Laboratory Tests 2 08/16/20 21:07: Bedside Glucose (Misc Panel) 180H 08/17/20 05:33: Nucleated Red Blood Cells % (auto) 0.0, Anion Gap 11, Glomerular Filtration Rate 6.7L, Calcium Level 8.1L, Magnesium Level 2.5H 08/17/20 11:53: Bedside Glucose (Misc Panel) 237H 08/17/20 17:01: Bedside Glucose (Misc Panel) 212H CBC/BMP Laboratory Tests 08/17/20 05:33 Microbiology Microbiology 08/16/20 Blood Culture - Preliminary, Resulted No growth after 24 hours . All specim... 08/16/20 Blood Culture - Preliminary, Resulted No growth after 24 hours . All specim... JAMIE WALLACE DO Aug 17, 2020 19:38
[2020-08-17] MEDS: ATORVASTATIN 20 MG TAB PO SCH (21:52)
[2020-08-18 06:00] VITALS: BP 107/63
[2020-08-18] MEDS: GABAPENTIN 100 MG CAP PO SCH (06:04)
[2020-08-18] MEDS: CLOPIDOGREL 75 MG TAB PO SCH (06:04)
[2020-08-18] MEDS: ASPIRIN 81 MG CHEW TABLET PO SCH (06:04)
[2020-08-18] MEDS: PANTOPRAZOLE 40MG TAB (PROTONIX) PO SCH (06:04)
[2020-08-18 06:09] LABS: HEMATOCRIT 31.3 % (42.0-52.0); HEMOGLOBIN 9.7 g/dl (13.5-17.5); MEAN CORPUSCULAR HEMOGLOBIN 27.2 pg (27.0-33.0); MEAN CORPUSCULAR VOLUME 87.7 fl (80.0-96.0); PLATELET COUNT, AUTOMATED 80 10^3/uL (150-450); RED BLOOD COUNT 3.57 10^6/uL (4.30-6.10); WHITE BLOOD COUNT 3.8 10^3/uL (4.0-10.0)
[2020-08-18 06:45] LABS: CALCIUM LEVEL 8.7 MG/DL (8.8-10.2); CREATININE FOR GFR 10.4 MG/DL (0.70-1.30); GLOMERULAR FILTRATION RATE 5.2 (>42)
[2020-08-18] MEDS: HumaLOG INSULIN (NovoLOG) PER UNIT SC SCH ×2 (08:01→12:00)
--- NOTE | 2020-08-18 12:40 | IPN ---
PROGRESS NOTE DATE: 08/18/2020 Mr. Tyson is seen this morning on his bedside during hemodialysis. He is feeling well and denies any nausea, vomiting, dyspnea, or chest pain. He was admitted with severe hyperkalemia after missed dialysis. His potassium level was 8.1 on the day of admission, and he was dialyzed in emergency in the evening of August 16. Yesterday his potassium was 5.3, and we decided to not dialyze him yesterday. This morning, his potassium is up to 6.0 again. He denies any dyspnea or chest pain. He is being dialyzed today with low-potassium bath. PHYSICAL EXAMINATION: Temperature 97.7 degrees Fahrenheit, heart rate 82 per minute, respiratory rate 18 per minute. Blood pressure 107/63 mmHg, and oxygen saturation 97% on room air. His head is atraumatic. Neck supple, and jugular venous distention (JVD) not abnormally elevated. Heart sounds are regular and lungs clear to auscultation. Abdomen obese, soft, and nontender, and bowel sounds are normal. Extremities without any cyanosis or clubbing. Right arm arteriovenous (AV) fistula is being used for dialysis. Today's labs show sodium 135, potassium 6.0, BUN 54, and creatinine 10.4. Hemoglobin is 9.7 and hematocrit 31.3. Platelets are 80,000. PROBLEMS: 1. Hyperkalemia, improved since admission but increased again today. Patient is being dialyzed with 1.0 mEq potassium bath. This will correct his hyperkalemia completely. 2. End-stage renal disease. Patient did miss one dialysis treatment over the weekend. He is being dialyzed again today. His regular dialysis will be scheduled for tomorrow as an outpatient. 3. Anemia. His anemia is stable at present and does not need any urgent intervention. 4. Thrombocytopenia. This is chronic, and no active bleeding noticed. We did not give him any heparin. 5. Congestive heart failure. His volume status is very well compensated, and we are removing about 1.5 liters fluid today. He is tolerating it well. 6. Diabetes. His blood sugars have been well controlled here in the hospital. Patient is likely to go home today. He will resume his home medications. DISPOSITION: From a renal standpoint, patient can be discharged to home today after dialysis. He will return to outpatient dialysis clinic tomorrow for his regular dialysis treatment.
--- NOTE | 2020-08-18 22:14 | DS.PDOC ---
Discharge Summary General Date of Admission Aug 16, 2020 at 13:59 Date of Discharge Aug 18, 2020 Attending Physician: JAMIE WALLACE DO Discharge Summary PROCEDURES PERFORMED DURING STAY: None ADMITTING DIAGNOSES: 1. ESRD non-compliant with hemodialysis 2. Hyperkalemia secondary to missing hemodialysis 3. Liver cirrhosis with portal hypertension 4. Anemia 5. Thrombocytopenia 6. Diabetes mellitus 7. CAD s/p CABG 8. Morbid obesity DISCHARGE DIAGNOSES: 1. ESRD non-compliant with hemodialysis 2. Hyperkalemia secondary to missing hemodialysis 3. Liver cirrhosis with portal hypertension 4. Anemia 5. Thrombocytopenia 6. Diabetes mellitus 7. CAD s/p CABG 8. Morbid obesity COMPLICATIONS/CHIEF COMPLAINT: Acute Hyperkalemia. HISTORY OF PRESENT ILLNESS: Mr. Tyson is a 70 year old male with obesity, IDDM, CAD, and ESRD on dialysis (normally MWF) presents to the ED for weakness, CARRERA, and difficulty ambulating. He had missed dialysis on Sunday (holiday dialysis schedule). In the ED, labs were significant for hyperkalemia of 8, and creatinine of 12.6. CXR was unimpressive without acute consolidations or effusion. Nephrology was consulted. Patient was admitted to the ICU for emergent dialysis. In the ED, he received calcium gluconate and insulin/dextrose. HOSPITAL COURSE: He was dialyzed on 08/16/2020 and 3L of fluid was removed. Potassium improved. He tolerated dialysis and was starting to feel better. Nephrology planned for another session of dialysis on 08/18/2020 before sending home. He was seen after dialysis. Denied fever/chills, chest pain or dyspnea. He felt ready for home and was subsequently discharged. He is to return to dialysis on 08/19/2020 (holiday dialysis schedule). DISCHARGE MEDICATIONS: Please see below. ALLERGIES: Please see below. PHYSICAL EXAMINATION ON DISCHARGE: VITAL SIGNS: Please see below. GENERAL: Comfortable, no apparent distress HEENT: Head normocephalic, atraumatic. EOMI, sclera clear NECK: Supple CARDIOVASCULAR EXAMINATION: Regular rate and rhythm RESPIRATORY EXAMINATION: Clear to auscultation bilaterally ABDOMINAL EXAMINATION: Soft, nontender, normal bowel sounds EXTREMITIES: Mild bilateral pitting edema SKIN: Warm and dry NEUROLOGICAL EXAMINATION: CN 3-12 grossly intact PSYCHIATRIC EXAMINATION: Normal mood and affect LABORATORY DATA: Please see below. IMAGING: CXR No acute consolidation or effusion. PROGNOSIS: Good ACTIVITY: As tolerated. DIET: Renal diet DISCHARGE PLAN: Home DISPOSITION: 01 Home, Self-Care. DISCHARGE INSTRUCTIONS: 1. Follow up with PCP within 1 week 2. Keep appointment with nephrology 3. Go to scheduled dialysis on 08/19/2020 DISCHARGE CONDITION: Stable. Total time spent on discharge planning, discharge summary, and medication reconciliation: 45 minutes Vital Signs/I&Os Vital Signs Date Time Temp Pulse Resp B/P (MAP) Pulse Ox O2 Delivery O2 Flow Rate FiO2 08/18/20 06:00 97.7 82 18 107/63 (78) 97 Room Air 08/16/20 19:45 2.0 I&O- Last 24 Hours up to 6 AM 08/18/20 06:00 Intake Total 1200 ml Output Total 0 ml Balance 1200 ml Laboratory Data Labs 24H Laboratory Tests 2 08/18/20 05:57: Nucleated Red Blood Cells % (auto) 0.0, Immature Platelet Fraction 2.6, Anion Gap 10, Glomerular Filtration Rate 5.2L, Calcium Level 8.7L 08/18/20 12:41: Bedside Glucose (Misc Panel) 99 CBC/BMP Laboratory Tests 08/18/20 05:57 FSBS Laboratory Tests Test 08/18/20 12:41 Range/Units Bedside Glucose (Misc Panel) 99 83-110 MG/DL Microbiology Microbiology 08/16/20 Blood Culture - Preliminary, Resulted No Growth after 48 hours. All Specime... 08/16/20 Blood Culture - Preliminary, Resulted No Growth after 48 hours. All Specime... Discharge Medications Scheduled Aspirin (Aspirin) 81 Mg Tab.chew, 81 MG PO DAILY, (Reported) Atorvastatin Calcium (Atorvastatin Calcium) 40 Mg Tablet, 40 MG PO QHS, (Reported) Clopidogrel Bisulfate (Plavix) 75 Mg Tablet, 75 MG PO DAILY, (Reported) Ergocalciferol (Vitamin D2) (Vitamin D2) 50,000 Units Cap, 50,000 UNITS PO 1XWK, (Reported) SATURDAYS Ezetimibe (Ezetimibe) 10 Mg Tablet, 10 MG PO DAILY, (Reported) Gabapentin (Gabapentin) 100 Mg Capsule, 100 MG PO BID, (Reported) Glipizide (Glipizide ER) 5 Mg Tab.er.24, 5 MG PO BID, (Reported) 0800, 1700 Pantoprazole Sodium (Pantoprazole Sodium) 40 Mg Tablet.dr, 40 MG PO DAILY, (Reported) Propranolol HCl (Propranolol HCl) 10 Mg Tab, 5 MG PO BID, (Reported) Sevelamer Carbonate (Sevelamer Carbonate) 800 Mg Tablet, 800 MG PO QPM, (Reported) @ 1700 Vit B Comp No.3/Folic/C/Biotin (Nephro-Liza Rx Tablet) 1 Each Tablet, 1 TAB PO DAILY, (Reported) Scheduled PRN Sildenafil Citrate (Viagra) 50 Mg Tablet, 50 MG PO ASDIRECTED PRN for ERECTILE DYSFUNCTION, (Reported) Allergies Coded Allergies: No Known Allergies (Unverified , 06/14/20) JAMIE WALLACE DO Aug 18, 2020 22:14
== END 2020-08-18 14:30 | disposition home or self-care (01) | DRG 640 ==
LOC: M ED 11:23 → M ED INP 13:59 → ENRESERV 14:26 → M PCU 16:16 → M MS5PR 08-17 15:00
PROVIDERS: ADMIT Internal Medicine; ATTEND Internal Medicine
PROC: 5A1D70Z Performance of Urinary Filtration, Intermittent, Less than 6 Hours Per Day (ICD-10-PCS; principal; 2020-08-16)
DX: E87.5 Hyperkalemia (principal); N18.6 End stage renal disease; K76.6 Portal hypertension; K74.60 Unspecified cirrhosis of liver; E66.01 Morbid (severe) obesity due to excess calories; Z68.38 Body mass index [BMI] 38.0-38.9, adult; E11.22 Type 2 diabetes mellitus with diabetic chronic kidney disease; I50.9 Heart failure, unspecified; E11.51 Type 2 diabetes mellitus with diabetic peripheral angiopathy without gangrene; Z91.15 Patient's noncompliance with renal dialysis; D69.6 Thrombocytopenia, unspecified; I25.10 Atherosclerotic heart disease of native coronary artery without angina pectoris; Z79.82 Long term (current) use of aspirin; Z79.899 Other long term (current) drug therapy; I69.361 Other paralytic syndrome following cerebral infarction affecting right dominant side; Z89.421 Acquired absence of other right toe(s); D64.9 Anemia, unspecified

== ENCOUNTER 2020-08-23 14:29 | Inpatient (IN) | payer MEDICARE, BC, OTHER ==
[~2020-08-23] VITALS: Ht 172.7 cm; Wt 118.4 kg
[~2020-08-23 14:29] MED LIST changes: +ASPI81CH10 PO; +ATOR40TA75 PO; +EZET10TA21 PO; +NEPH1TAB11 PO; +Nephro-Vite; +PLAV1TAB2 PO
[2020-08-23] MEDS ORDERED: ACETAMINOPHEN TAB 650MG DOSE (2X325MG) PO ONE (16:00)
[2020-08-23 16:10] LABS: BASO # 0.1 10^3/uL (0.0-0.2); BASO % 0.5 % (0.0-1.0); EOS # 0.2 10^3/uL (0.0-0.5); EOS % 1.4 % (0.0-3.0); HEMATOCRIT 33.2 % (42.0-52.0); HEMOGLOBIN 10.4 g/dl (13.5-17.5); LYMPH # 1.2 10^3/uL (1.5-5.0); LYMPH % 9.2 % (24.0-44.0); MEAN CORPUSCULAR HEMOGLOBIN 27.5 pg (27.0-33.0); MEAN CORPUSCULAR HGB CONC 31.3 g/dl (32.0-36.5); MEAN CORPUSCULAR VOLUME 87.8 fl (80.0-96.0); MONO # 1.2 10^3/uL (0.0-0.8); MONO % 9.3 % (0.0-5.0); NEUTROPHILS # 10.2 10^3/uL (1.5-8.5); RED BLOOD COUNT 3.78 10^6/uL (4.30-6.10); WHITE BLOOD COUNT 12.9 10^3/uL (4.0-10.0)
[2020-08-23 16:21] LABS: PLATELET COUNT, AUTOMATED 97 10^3/uL (150-450)
[2020-08-23 16:40] LABS: INR 1.23; PROTHROMBIN TIME 15.8 SECONDS (12.5-14.3)
[2020-08-23 16:41] LABS: PARTIAL THROMBOPLASTIN TIME 34.9 SECONDS (24.2-38.5)
[2020-08-23 16:51] LABS: ALBUMIN 3.6 GM/DL (3.2-5.2); ALT/SGPT 29 U/L (12-78); BILIRUBIN,DIRECT 0.3 MG/DL (0.0-0.2); BILIRUBIN,TOTAL 0.9 MG/DL (0.2-1.0); BLOOD UREA NITROGEN 73 MG/DL (7-18); CALCIUM LEVEL 8.6 MG/DL (8.8-10.2); CARBON DIOXIDE LEVEL 23 MEQ/L (21-32); CHLORIDE LEVEL 98 MEQ/L (98-107); CK-MB VALUE MASS 2.4 NG/ML (<3.6); CPK CREATINE PHOSPHOKINASE 142 U/L (39-308); FREE T4 0.78 NG/DL (0.76-1.46); GLUCOSE, FASTING 86 MG/DL (70-100); MB/CK RELATIVE INDEX 1.69 (< OR =4); NT-PRO BNP 2797 PG/ML (<125); POTASSIUM SERUM 5.9 MEQ/L (3.5-5.1); SODIUM LEVEL 134 MEQ/L (136-145); TOTAL PROTEIN 8.5 GM/DL (6.4-8.2); TROPONIN I < 0.02 NG/ML (< 0.10)
--- NOTE | 2020-08-23 18:39 | REP ---
INDICATION: SOB. COMPARISON: 08/16/2020 TECHNIQUE: AP and lateral views. The technique utilized in obtaining the radiograph has magnified the cardiac silhouette and attenuated the interstitial markings. FINDINGS: There is cardiomegaly accentuated by technique. Note is again made of previous median sternotomy. No acute patchy parenchymal opacities or pleural effusions have developed. There is no significant change in the osseous structures.. IMPRESSION: No significant change from the prior exam. No evidence of acute cardiopulmonary disease. <Electronically signed by Matt Prabhakar > 08/23/20 [id number]
--- NOTE | 2020-08-23 19:03 | REPVR ---
PROCEDURE INFORMATION: Exam: CT Head Without Contrast Exam date and time: 08/23/2020 6:36 PM Age: 70 years old Clinical indication: Speech disturbance; Additional info: Weakness, speech difficulty TECHNIQUE: Imaging protocol: Computed tomography of the head without contrast. Radiation optimization: All CT scans at this facility use at least one of these dose optimization techniques: automated exposure control; mA and/or kV adjustment per patient size (includes targeted exams where dose is matched to clinical indication); or iterative reconstruction. COMPARISON: CT Head without contrast 12/01/2019 8:08 PM FINDINGS: Limitations: Patient motion. Brain: Minimal decreased attenuation of the supratentorial white matter is likely secondary to chronic microvascular ischemia. No acute intracranial hemorrhage. Cerebral ventricles: Ventricular and subarachnoid spaces are age appropriate. Bones/joints: Unremarkable. No acute fracture. Paranasal sinuses: Visualized sinuses are unremarkable. No fluid levels. Mastoid air cells: Visualized mastoid air cells are well aerated. Vasculature: Intracranial vascular calcification. Soft tissues: Unremarkable. IMPRESSION: No acute intracranial abnormality. Electronically signed by: Hay Morris On 08/23/2020 19:03:27 PM
[2020-08-23] MEDS ORDERED: SOD POLYSTYRENE SULFONATE SUSP 15 GM/60 ML UD PO ONE (19:45)
[2020-08-23] MEDS ORDERED: HumuLIN R (REGULAR) INSULIN (NovoLIN R) **100U/ML** PER UNIT IV ONE (19:45)
[2020-08-23] MEDS ORDERED: DEXTROSE 50% 50 ML SYRINGE IV STA ×2 (19:45→22:46)
[2020-08-23] MEDS ORDERED: CALCIUM GLUCONATE 1,000 MG in D5W MINI-BAG PLUS 100 ML IV ONE (19:45)
[2020-08-23] MEDS: GABAPENTIN 100 MG CAP PO SCH (21:00)
[2020-08-23] MEDS: HumaLOG INSULIN (NovoLOG) PER UNIT SC SCH (21:00)
[2020-08-23] MEDS ORDERED: LIDOCAINE 1% SDV 5ML VIAL SC PRN (22:15)
[2020-08-23] MEDS ORDERED: SODIUM CHLORIDE 0.9% 1000ML IV PRN (22:15)
--- NOTE | 2020-08-23 22:44 | HPEPDOC ---
[facility] Medical History & Physical Date of Admission Aug 23, 2020 Date of Service: Aug 23, 2020 History and Physical CHIEF COMPLAINT: Missed dialysis HISTORY OF PRESENT ILLNESS: 70-year-old male with extensive medical history ESRD on hemodialysis who was too weak last week to attend his dialysis session and stayed at home called EMS for progressive weakness and for missing his dialysis. Patient frontal potassium of 5.9 upon admission. ED spoke with Dr. Mayorga on-call today for nephrology who advised for the patient to be admitted and will receive dialysis in the morning. Patient tells me he lives alone and has been progressively getting weaker over the past months tells me he tries to comply with his dialysis but his weakness sometimes impedes his ability to go to his scheduled sessions. PAST MEDICAL/SURGICAL HISTORY: From chart review: Chronic wounds right upper extremity, hips, buttocks, in between his legs and on the plantar surface of his foot ESRD via right upper extremity fistula (MWF) History of left thigh abscess and staph epidermidis bacteremia Sep 2019 CAD/CABG DM - reports not taking any insulin, because he doesn't want to, understands risks. CVA residual left-sided paresthesia, which ?resolved Age related small vessel white matter angiopathic gliosis / Diffuse cerebellar atrophy Fatty liver, Liver cirrhosis w hx of decompensated hepatic encephalopathy & esophageal varices History of nonbleeding duodenal ulcer Appendectomy Right third toe Amputation to manage osteomyelitis Left eye cataract surgery Resection of sessile colonic polyps Left medial meniscal tear managed with with partial medial meniscectomy History of right pleural effusion requiring right-sided chest tube placement SOCIAL HISTORY: Denies alcohol use Denies tobacco use Denies illicit drug use other than occasional cannabis use FAMILY HISTORY: Reviewed and none contributory to this admission Father had diabetes ALLERGIES: Please see below. REVIEW OF SYSTEMS: 10 point review of systems complete all negative otherwise stated in HPI HOME MEDICATIONS: Please see below. PHYSICAL EXAMINATION: Constitutional: Awake and alert, ill-appearing elderly obese male ENT: Sclera are clear Respiratory: Diminished breath sounds bilaterally but no crackles or wheezing. No respiratory distress. No use of accessory muscles. Cardiovascular: RRR S1 and S2 are normal, no murmur, chest scar Gastrointestinal: Abdomen is soft, non distended, non tender, BS present, obese abdomen Musculoskeletal: There is nonpitting right lower extremity edema appears chronic Mental Status: A&O x3, normal affect Skin: Chronic wounds right upper extremity, hips, buttocks, in between his legs and on the plantar surface of his foot. R foot wound, will place wound consult. LABORATORY DATA: See below. IMAGING: See chart MICROBIOLOGY: Please see below. ASSESSMENT/PLAN 70-year-old male ESRD on hemodialysis who missed dialysis session last week comes to the hospital because of progressive weakness admitted for medical manag ement and dialysis. Assessment: # Acute hyperkalemia due to missed HD # ESRD on HD, missed session # Weakness - likely multifactorial likely due to chronic deconditioning # Fever of unknown etiology # Chronic wounds # Diabetic not on insulin at home # Thrombocytopenia likely due to liver cirrhosis # None compliance with medications # Hx CAD and CABG # Hx CVA # Hx Liver cirrhosis w hx of decompensated hepatic encephalopathy & esophageal varices Plan: Will admit the patient to PCU with telemetry monitoring due to hyperkalemia. We'll medically manage patient's hyperkalemia. Nephrology Dr. Mayorga consulted and will dialyze the patient in the morning. Patient had a fever of unknown etio logy blood cultures were ordered as well as urinalysis and he will be empirically started on antibiotics. Follow-up procalcitonin. Patient's weakness is likely multifactorial likely from chronic deconditioning I will ask for PT for/OT to evaluate the patient. For the patient's chronic wounds including the wound on his right foot I will consult wound care Dr. Raines. I will obtain an right lower extremity ultrasound as he has some increased swelling in the right leg compared. Patient will be placed on insulin sinus scale for diabetes with hypoglycemic precautions. He'll be placed on SCDs/KARINA due to his chronic thrombocytopenia. Will continue patient's home meds for his chronic medical pro blems. A [facility] Hospitalist Vital Signs Vital Signs Date Time Temp Pulse Resp B/P (MAP) Pulse Ox O2 Delivery O2 Flow Rate FiO2 08/23/20 20:30 100 16 94/50 (65) 99 Nasal Cannula 2.0 08/23/20 16:05 101.0 Laboratory Data Labs 24H Laboratory Tests 2 08/23/20 15:52: Immature Granulocyte % (Auto) 0.6, Neutrophils (%) (Auto) 79.0H, Lymphocytes (%) (Auto) 9.2L, Monocytes (%) (Auto) 9.3H, Eosinophils (%) (Auto) 1.4, Basophils (%) (Auto) 0.5, Neutrophils # (Auto) 10.2H, Lymphocytes # (Auto) 1.2L, Monocytes # (Auto) 1.2H, Eosinophils # (Auto) 0.2, Basophils # (Auto) 0.1, Nucleated Red Blood Cells % (auto) 0.0, Immature Platelet Fraction 3.3, Prothrombin Time 15.8H, Prothromb Time International Ratio 1.23, Activated Partial Thromboplast Time 34.9, Anion Gap 13, Glomerular Filtration Rate 4.0L, Calcium Level 8.6L, Total Bilirubin 0.9, Direct Bilirubin 0.3H, Aspartate Amino Transf (AST/SGOT) 31, Alanine Aminotransferase (ALT/SGPT) 29, Alkaline Phosphatase 114, Total Creatine Kinase 142, Creatine Kinase MB 2.4, Creatine Kinase MB Relative Index 1.69, Troponin I < 0.02, KC-Lxc-C-Type Natriuretic Peptide 2797H, Total Protein 8.5H, Albumin 3.6, Albumin/Globulin Ratio 0.7, Thyroid Stimulating Hormone (TSH) 2.110, Free Thyroxine 0.78 08/23/20 20:48: Bedside Glucose (Misc Panel) 90 CBC/BMP Laboratory Tests 08/23/20 15:52 Microbiology Microbiology 08/23/20 Blood Culture, Received Pending 08/23/20 Blood Culture, Received Pending 08/23/20 Respiratory Virus Panel (PCR) ([facility]) - Final, Complete Home Medications Scheduled Aspirin (Aspirin) 81 Mg Tab.chew, 81 MG PO DAILY Atorvastatin Calcium (Atorvastatin Calcium) 40 Mg Tablet, 40 MG PO QHS Clopidogrel Bisulfate (Plavix) 75 Mg Tablet, 75 MG PO DAILY Ergocalciferol (Vitamin D2) (Vitamin D2) 50,000 Units Cap, 50,000 UNITS PO 1XWK SATUR Ezetimibe (Ezetimibe) 10 Mg Tablet, 10 MG PO DAILY Gabapentin (Gabapentin) 100 Mg Capsule, 100 MG PO BID Glipizide (Glipizide ER) 5 Mg Tab.er.24, 5 MG PO BID 0800, 1700 Pantoprazole Sodium (Pantoprazole Sodium) 40 Mg Tablet.dr, 40 MG PO DAILY Propranolol HCl (Propranolol HCl) 10 Mg Tab, 5 MG PO BID Sevelamer Carbonate (Sevelamer Carbonate) 800 Mg Tablet, 800 MG PO TID Vit B Comp No.3/Folic/C/Biotin (Nephro-Liza Rx Tablet) 1 Each Tablet, 1 TAB PO DAILY Scheduled PRN Sildenafil Citrate (Viagra) 50 Mg Tablet, 50 MG PO ASDIRECTED PRN for ERECTILE DYSFUNCTION Allergies Coded Allergies: No Known Allergies (Unverified , 06/14/20) A-FIB/CHADSVASC A-FIB History Current/History of A-Fib/PAF?: No RINA ADAIR MD Aug 23, 2020 22:44
[2020-08-23] MEDS ORDERED: MAALOX 30 ML SUSP *UDC PO PRN (22:45)
[2020-08-23] MEDS ORDERED: MOM 30ML SUSPENSION UDC PO PRN (22:45)
[2020-08-23] MEDS ORDERED: DEXTROSE 50% 50 ML SYRINGE IV PRN (22:45)
[2020-08-23] MEDS ORDERED: ACETAMINOPHEN TAB 650MG DOSE (2X325MG) PO PRN (22:45)
[2020-08-23] MEDS ORDERED: GLUCAGON INJ 1MG VIAL SC PRN (22:45)
[2020-08-23] MEDS ORDERED: GLUCOSE 4GM CHEW TABLET PO PRN (22:45)
[2020-08-23] MEDS ORDERED: PIPERACILLIN/TAZOBACTAM SOD 4.5 GM in D5W MINI-BAG PLUS 50 ML IV SCH (23:00)
[2020-08-23] MEDS ORDERED: PILL CUTTER 1 EACH XX PRN (23:15)
--- NOTE | 2020-08-23 23:28 | REPVR ---
PROCEDURE INFORMATION: Exam: US Duplex Right Lower Extremity Veins, Limited Exam date and time: 08/23/2020 11:22 PM Age: 70 years old Clinical indication: Edema, localized; Lower extremity, right; Additional info: Rle edema TECHNIQUE: Imaging protocol: Real-time Duplex ultrasound of the Right Lower Extremity with 2-D davis scale, color Doppler flow and spectral waveform analysis with image documentation. Limited exam was focused on the right lower extremity veins. COMPARISON: No relevant prior studies available. FINDINGS: Right deep veins: Unremarkable. The common femoral, femoral, proximal profunda femoral and popliteal veins are patent without thrombus. Normal Doppler waveforms. Normal compressibility and/or augmentation response. Right superficial veins: Unremarkable. Saphenofemoral junction is patent without thrombus. Soft tissues: Unremarkable. IMPRESSION: No evidence of deep vein thrombosis. Electronically signed by: Hay Morris On 08/23/2020 23:28:23 PM
[2020-08-24] VITALS (7 sets, daily range): BP systolic 89–116; BP diastolic 49–61
[2020-08-24] MEDS ORDERED: VANCOMYCIN HCL 1,000 MG, VIAL MATE ADAPTER 1 EACH in D5W 250 ML IV ONE (01:00)
[2020-08-24] MEDS: DOCUSATE SODIUM 100MG CAPSULE PO SCH ×3 (02:52→21:36)
[2020-08-24] MEDS: PIPERACILLIN/TAZOBACTAM SOD 2.25 GM in D5W MINI-BAG PLUS 50 ML IV SCH ×4 (02:52→23:06)
[2020-08-24] MEDS: ATORVASTATIN 20 MG TAB PO SCH ×2 (02:53→21:36)
[2020-08-24] MEDS: PROPRANOLOL 10 MG TAB PO SCH ×3 (03:54→21:00)
--- NOTE | 2020-08-24 06:25 | ECGEPIP ---
[facility] - ED Test Date: 2020-08-23 Pat Name: KALYANI WHITMORE Department: Room: - Gender: Male Time Study Engineer: HARRIETT : 1950 Requested By: CARLOS Whyte Order Number: [id number] Reading MD: Cezar Dexter Measurements Intervals [place] Rate: 111 P: -5 MT: 184 QRS: -11 QRSD: 113 T: 39 QT: 324 QTc: 442 Interpretive Statements SINUS TACHYCARDIA LEFTWARD AXIS INFERIOR MYOCARDIAL INFARCTION, PROBABLY OLD INTRAVENTRICULAR CONDUCTION DELAY NONSPECIFIC ST T WAVE CHANGES CW 08/16/[address] T WAVE CHANGES Electronically Signed on 08-24-2020 6:24:52 EST by Cezar Dexter
[2020-08-24 07:40] LABS: HEMATOCRIT 24.9 % (42.0-52.0); MEAN CORPUSCULAR HEMOGLOBIN 28.6 pg (27.0-33.0); MEAN CORPUSCULAR HGB CONC 32.5 g/dl (32.0-36.5); RED BLOOD COUNT 2.83 10^6/uL (4.30-6.10); WHITE BLOOD COUNT 8.7 10^3/uL (4.0-10.0)
[2020-08-24 07:47] LABS: PLATELET COUNT, AUTOMATED 58 10^3/uL (150-450)
[2020-08-24 07:48] LABS: HEMOGLOBIN 8.1 g/dl (13.5-17.5)
[2020-08-24 08:13] LABS: ALBUMIN 2.5 GM/DL (3.2-5.2); BILIRUBIN,TOTAL 0.8 MG/DL (0.2-1.0); CALCIUM LEVEL 7.8 MG/DL (8.8-10.2); CREATININE FOR GFR 14.3 MG/DL (0.70-1.30); GLOMERULAR FILTRATION RATE 3.6 (>42); MAGNESIUM LEVEL 2.4 MG/DL (1.8-2.4); POTASSIUM SERUM 5.1 MEQ/L (3.5-5.1); TOTAL PROTEIN 6.3 GM/DL (6.4-8.2)
[2020-08-24] MEDS ORDERED: CLOPIDOGREL 75 MG TAB PO SCH (09:00)
[2020-08-24 12:42] LABS: PERCENT SATURATION 9.3 % (19.7-50.0)
[2020-08-24] MEDS: HumaLOG INSULIN (NovoLOG) PER UNIT SC SCH ×4 (14:17→21:00)
[2020-08-24] MEDS: (RENVELA) SEVELAMER **CARBONate** 800 MG TAB PO SCH ×3 (14:17→17:46)
[2020-08-24] MEDS: MIDODRINE 5 MG TAB PO SCH ×2 (14:20→16:27)
[2020-08-24] MEDS: GABAPENTIN 100 MG CAP PO SCH ×2 (15:25→21:36)
[2020-08-24] MEDS ORDERED: SLF 3 ML SYR IV PRN (16:00)
[2020-08-24 16:26] LABS: HEMATOCRIT 25.7 % (42.0-52.0); HEMOGLOBIN 7.9 g/dl (13.5-17.5)
[2020-08-24] MEDS: ASPIRIN 81 MG CHEW TABLET PO SCH (16:27)
[2020-08-24] MEDS: PANTOPRAZOLE 40MG TAB (PROTONIX) PO SCH (16:28)
[2020-08-24] MEDS: EZETIMIBE 10 MG TAB (ZETIA) PO SCH (16:28)
--- NOTE | 2020-08-24 16:35 | CR ---
INPATIENT CONSULTATION DATE: 08/24/20 REQUESTING PHYSICIAN: Aleks Youngblood MD. CONSULTING PHYSICIAN: Yakov Mayorga DO. REASON FOR CONSULTATION: Management of end-stage renal disease on hemodialysis in this patient with missed dialysis treatments and hyperkalemia. HISTORY OF PRESENT ILLNESS: Kristopher Galvan is well known to me. He is a 70-year-old male with a past medical history of end-stage renal disease on hemodialysis on a Sunday, Sunday, Sunday schedule, coronary artery disease status post CABG and stenting, type-2 diabetes mellitus, history of chronic wounds of the hips, buttocks and foot and other comorbid conditions mentioned below. Patient follows up regularly with wound care Dr. Raines for management of his multiple chronic wounds, but denies any recent antibiotic use. States that over the past 2 weeks since Priscilla time he has been feeling progressively weaker and was having trouble getting around and has missed at least 2 dialysis treatments. He reports fevers and chills, but denies nausea, vomiting and diarrhea. He reports a cough and denies shortness of breath at rest. In the Emergency Room patient was noted to be febrile with a T-max of 101.3 and was hypotensive overnight with systolic in the 80s-90s. Blood work revealed leukocytosis and hyperkalemia with potassium of 5.9 and elevated BNP of 2700. Nephrology evaluation was requested for management of this patient's hemodialysis and hyperkalemia. PAST MEDICAL AND SURGICAL HISTORY: 1. Long standing diabetes mellitus. 2. Coronary artery disease status post angioplasty and stents and CABG. 3. End-stage renal disease on hemodialysis Sunday, Sunday, Sunday. 4. History of left thigh abscess with Staph epidermitis bacteremia in September of 2019. 5. TIA/CVA with residual left sided paresthesia in the past. 6. Liver cirrhosis. 7. Esophageal varices. 8. Status post right forearm AV fistula. 9. History of right third toe amputation. 10. Left eye cataract surgery. 11. History of colonic polyp removal. 12. Left meniscal tear surgery. 13. History of right sided chest tube placement for pleural effusion. 14. Peripheral vascular disease. 15. Obesity. 16. Duodenal ulcer. 17. Decubitus ulcer. ALLERGIES: No known drug allergies. HOME MEDICATIONS: 1. Vitamin D 50,000 units once a week. 2. Multivitamin 1 tablet daily. 3. Gabapentin 100 mg twice a day. 4. Glipizide extended release 5 mg twice a day. 5. Protonix 40 mg by mouth daily. 6. Propanolol 10 mg daily. 7. Renvela 800 mg with meal. 8. Aspirin 81 mg with meal. 9. Lipitor 40 mg daily. 10. Plavix 75 mg daily. 11. Zetia 10 mg daily. PERSONAL AND SOCIAL HISTORY: He is . He lives by himself. He denies tobacco or alcohol use. FAMILY HISTORY: Significant for diabetes. REVIEW OF SYSTEMS: Constitutional: He reports fever and chills and generalized weakness and difficulty and inability of ambulation. ENT: He denies tinnitus or odynophagia. Cardiac: Significant for coronary artery disease and recent angioplasty with stent placement. He denies chest pain. Respiratory: Negative for shortness of breath or hemoptysis. GI: Negative for vomiting or diarrhea. Genitourinary: He reports anuria. Endocrine: Significant for secondary hyperparathyroidism of renal origin and diabetes. Hematologic: Significant for anemia of end-stage renal disease. He is on dual anti-platelet therapy. Musculoskeletal: Significant for generalized weakness and history of decubitus and degenerative arthritis. Psychosocial: Negative for depression or anxiety. Neurologic: Negative for seizure, but he does have a history of prior stroke. PHYSICAL EXAMINATION: Vital signs: Temperature 98.2, pulse 77, respiratory rate 18, blood pressure 89/49, saturating 97% on 2 liters nasal cannula. General: Patient is seen in the Hemodialysis Unit receiving his treatment, appears fatigued and lethargic, but is awake, alert and oriented times 3 and conversational and recognizes me and greets me by name. HEENT: Extraocular muscles are intact. Tongue is moist. Neck: Supple. Heart: Sounds are regular S1 and S2. There is at least 1+ leg edema bilaterally. Respiratory: He was seen on nasal cannula. Anterior auscultation only diminished breath sounds, no crackle or wheeze, no accessory muscle use, no tachypnea. Abdomen: Soft, obese and nontender. There are bowel sounds. Extremities: There is no cyanosis or clubbing. There is a fistula in the right arm which is presently in use and patent. There is pitting edema 1+ in the legs. Skin: The decubitus ulcer in the hip and buttock area could not be examined while he was on his dialysis treatment. Neurologic: He was oriented times 3, interactive and conversational. LABORATORY DATA: Sodium 135, potassium 5.1 down from 5.9, BUN 95, magnesium 2.4, albumin 2.5. Hemoglobin 8.1. Blood culture is pending times 2. INPATIENT MEDICATIONS: 1. Calcium gluconate 1 gram I.V. times 1. 2. Zosyn 2.25 gram I.V. q8h. 3. Vancomycin 1 gram I.V. times 1. 4. Tylenol 650 mg by mouth p.r.n. 5. Mylanta p.r.n. 6. Aspirin 81 mg by mouth daily. 7. Atorvastatin 40 mg by mouth at bedtime. 8. Plavix 75 mg by mouth daily. 9. Docusate 100 mg by mouth twice a day. 10. Zetia 10 mg by mouth daily. 11. Gabapentin 100 mg by mouth twice a day. 12. Insulin. 13. Protonix 40 mg by mouth daily. 14. Propanolol 5 mg by mouth twice a day. 15. Renvela 800 mg by mouth with meal. 16. Kayexalate 30 gram by mouth times 1. PROBLEMS: 1. End-stage renal disease: On hemodialysis on a Sunday, Sunday, Sunday schedule. Patient missed dialysis treatment because of progressive weakness and inability to ambulate. He was hyperkalemic in the Emergency Room yesterday and received the usual cocktail with insulin, D50 and Kayexalate. He is being dialyzed today with a 2 mEq bath. Hypotension is complicating his hemodialysis treatment. We are only able to remove 1 liter of fluid today and that is using albumin as a support. 2. Hyperkalemia due to missed dialysis: It has already improved and he is being dialyzed today with a 2 mEq bath. 3. Hypotension with leukocytosis and fever concerning for sepsis possibly related to his chronic wounds: He is on broad spectrum antibiotics, cultures have been sent and pending and a wound consult has been called as well. We were only able to remove 1 liter of fluid with dialysis today and in fact he was given albumin with his treatment as well for hemodynamic support. 4. Thrombocytopenia: It is a chronic condition. He is on dual antiplatelet therapy because of recent coronary stent. I gave him a minimal dose of heparin with dialysis today. There is no sign of active bleed. He will have daily CBC monitoring. 5. Anemia of chronic renal failure: Goal hemoglobin is 10-11. We will restart him on Aranesp and will get iron studies as well. He can be transfused for a hemoglobin less than 8. 6. History of GI bleed and esophageal varices: The patient is on Protonix. He also takes propanolol 5 mg by mouth twice a day; however, he has been quite hypotensive and I have added holding parameters to the propanolol. He may require midodrine. We will see how he fares. Thank you for involving in the care of Mr. Galvan. I will be happy to follow him along with you.
--- NOTE | 2020-08-24 17:39 | IPNPDOC ---
Text Note Date of Service The patient was seen on 08/24/20. NOTE Subjective: Patient complains of sputum production and cough. Patient afebrile Objective: GENERAL APPEARANCE: Obese male HEENT: no scleral icterus, plus JVD, EOMI CARDIOVASCULAR: S1S2 LUNGS: Diminished lung sounds bilaterally ABDOMEN: soft & not tender w palpitation MUSCULOSKELETAL: +2 pitting edema of lower extremities, chronic wounds right upper extremity, hips, buttocks, in between his legs and on the plantar surface of his foot. R foot wound NEUROLOGICAL: cranial nerve function from 2-12 intact intact, follows commands, speech not dysarthric Assessment and plan 70-year-old male ESRD on hemodialysis who missed dialysis session last week comes to the hospital because of progressive weakness admitted for medical management and dialysis. Sepsis In the Emergency Room patient had fever of 101.3 and was hypotensive overnight with systolic in the 80s-90s. Blood work revealed leukocytosis, per calcitonin 0.6 Most likely source of infection sacral wound. Unlikely infection from the right foot, looks stage II-III noninfected MRSA screen Continue Zosyn, vancomycin Appreciate/agree with cyber forensic specialist consult End-stage renal diseases Continue dialysis Nephrology team follows him] Hyperkalemia Improved after dialysis Thrombocytopenia Chronic condition Coronary artery diseases Recent stent placement, continue home cardioprotective medication Due to blood loss anemia I will discontinue Plavix for now Anemia of chronic diseases/acute blood loss anemia secondary to GI loss Stool positive for blood Patient has a history of GI bleed and esophageal varices Continue Protonix H&H every 6 hours Hemoglobin today is 7.9 Continue to monitor If hemoglobin dropped we will transfuse Continue Aranesp Liver cirrhosis w hx of decompensated hepatic encephalopathy & esophageal varices Continue propranolol Follow-up with GI team in the outpatient settings Deconditioning Secondary to multiple diseases PT/OT SCDs/KARINA due to his chronic thrombocytopenia Diastolic CHF Positive JVD, orthopnea, increased BNP Acute secondary to volume overload Continue dialysis VS,Fishbone, I+O VS, Fishbone, I+O Laboratory Tests 08/24/20 07:03 08/24/20 16:11 Vital Signs Date Time Temp Pulse Resp B/P (MAP) Pulse Ox O2 Delivery O2 Flow Rate FiO2 08/24/20 16:00 98.0 74 18 102/52 (69) 99 08/24/20 11:30 Nasal Cannula 2.0 JOSE KOCH DO Aug 24, 2020 17:39
[2020-08-24] MEDS ORDERED: VANCOMYCIN HCL 1,000 MG, VIAL MATE ADAPTER 1 EACH in D5W 250 ML IV SCH (18:00)
[2020-08-24 22:13] LABS: HEMATOCRIT 24.3 % (42.0-52.0); HEMOGLOBIN 7.6 g/dl (13.5-17.5)
[2020-08-24] MEDS: SLF 3 ML SYR IV SCH (23:07)
[2020-08-25] VITALS (12 sets, daily range): BP systolic 88–118; BP diastolic 54–75
[2020-08-25] MEDS ORDERED: SODIUM CHLORIDE 0.9% 500 ML IV ONE (04:00)
[2020-08-25 04:30] LABS: BASO % 0.5 % (0.0-1.0); EOS # 0.1 10^3/uL (0.0-0.5); EOS % 3.2 % (0.0-3.0); HEMATOCRIT 23.9 % (42.0-52.0); HEMOGLOBIN 7.3 g/dl (13.5-17.5); LYMPH # 0.8 10^3/uL (1.5-5.0); LYMPH % 18.4 % (24.0-44.0); MEAN CORPUSCULAR HEMOGLOBIN 26.9 pg (27.0-33.0); MEAN CORPUSCULAR HGB CONC 30.5 g/dl (32.0-36.5); MEAN CORPUSCULAR VOLUME 88.2 fl (80.0-96.0); MONO # 0.7 10^3/uL (0.0-0.8); MONO % 16.3 % (0.0-5.0); NEUTROPHILS # 2.7 10^3/uL (1.5-8.5); NEUTROPHILS % 61.4 % (36.0-66.0); RED BLOOD COUNT 2.71 10^6/uL (4.30-6.10); WHITE BLOOD COUNT 4.4 10^3/uL (4.0-10.0)
[2020-08-25 04:39] LABS: PLATELET COUNT, AUTOMATED 55 10^3/uL (150-450)
[2020-08-25 05:06] LABS: ALBUMIN 2.6 GM/DL (3.2-5.2); BILIRUBIN,TOTAL 0.6 MG/DL (0.2-1.0); CALCIUM LEVEL 8.2 MG/DL (8.8-10.2); CREATININE FOR GFR 10.2 MG/DL (0.70-1.30); GLOMERULAR FILTRATION RATE 5.4 (>42); MAGNESIUM LEVEL 2.3 MG/DL (1.8-2.4); POTASSIUM SERUM 4.2 MEQ/L (3.5-5.1); TOTAL PROTEIN 6.2 GM/DL (6.4-8.2); VANCOMYCIN RANDOM 4.7 UG/ML
[2020-08-25] MEDS: SLF 3 ML SYR IV SCH ×3 (06:00→20:40)
[2020-08-25] MEDS: HumaLOG INSULIN (NovoLOG) PER UNIT SC SCH ×4 (07:30→20:39)
[2020-08-25] MEDS ORDERED: VANCOMYCIN HCL 1,000 MG, VIAL MATE ADAPTER 1 EACH in D5W 250 ML IV ONE (08:00)
[2020-08-25] MEDS: PROPRANOLOL 10 MG TAB PO SCH ×2 (09:00→20:39)
[2020-08-25] MEDS: ASPIRIN 81 MG CHEW TABLET PO SCH (10:21)
[2020-08-25] MEDS: GABAPENTIN 100 MG CAP PO SCH ×2 (10:21→20:39)
[2020-08-25] MEDS: DOCUSATE SODIUM 100MG CAPSULE PO SCH ×2 (10:21→20:39)
[2020-08-25] MEDS: EZETIMIBE 10 MG TAB (ZETIA) PO SCH (10:21)
[2020-08-25] MEDS: PANTOPRAZOLE 40MG TAB (PROTONIX) PO SCH (10:21)
[2020-08-25] MEDS: (RENVELA) SEVELAMER **CARBONate** 800 MG TAB PO SCH ×3 (10:35→17:33)
[2020-08-25] MEDS: MIDODRINE 5 MG TAB PO SCH ×3 (10:35→16:03)
[2020-08-25 10:40] LABS: HEMATOCRIT 26.5 % (42.0-52.0); HEMOGLOBIN 8.4 g/dl (13.5-17.5)
--- NOTE | 2020-08-25 11:37 | IPNPDOC ---
Text Note Date of Service The patient was seen on 08/25/20. NOTE Subjective: Patient stated that he feels better today Objective: GENERAL APPEARANCE: Obese male HEENT: no scleral icterus, plus JVD, EOMI CARDIOVASCULAR: S1S2 LUNGS: Diminished lung sounds bilaterally ABDOMEN: soft & not tender w palpitation MUSCULOSKELETAL: +2 pitting edema of lower extremities, chronic wounds right upper extremity, hips, buttocks, in between his legs and on the plantar surface of his foot. R foot wound NEUROLOGICAL: cranial nerve function from 2-12 intact intact, follows commands, speech not dysarthric Assessment and plan 70-year-old male ESRD on hemodialysis who missed dialysis session last week comes to the hospital because of progressive weakness admitted for medical management and dialysis. Sepsis Resolved In the Emergency Room patient had fever of 101.3 and was hypotensive overnight with systolic in the 80s-90s. Blood work revealed leukocytosis, per calcitonin 0.6 Most likely source of infection sacral wound. Unlikely infection from the right foot, looks stage II-III noninfected MRSA screen Continue Zosyn, vancomycin Appreciate/agree with medical billing specialist consult End-stage renal diseases Continue dialysis Nephrology team follows him] Hyperkalemia Improved after dialysis Thrombocytopenia Chronic condition Coronary artery diseases Recent stent placement, continue home cardioprotective medication Due to blood loss anemia I will discontinue Plavix for now Anemia of chronic diseases/acute blood loss anemia secondary to GI loss Stool positive for blood Patient has a history of GI bleed and esophageal varices Continue Protonix H&H every 6 hours Hemoglobin today dropped to 7.3. I will give one unit of blood Continue to monitor Continue Aranesp Follow-up with GI team in the outpatient settings Liver cirrhosis w hx of decompensated hepatic encephalopathy & esophageal varices Continue propranolol Follow-up with GI team in the outpatient settings Deconditioning Secondary to multiple diseases PT/OT SCDs/KARINA due to his chronic thrombocytopenia Diastolic CHF Positive JVD, orthopnea, increased BNP Acute secondary to volume overload Continue scheduled dialysis VS,Fishbone, I+O VS, Fishbone, I+O Laboratory Tests 08/24/20 16:11 08/24/20 22:08 08/25/20 04:04 08/25/20 10:29 Vital Signs Date Time Temp Pulse Resp B/P (MAP) Pulse Ox O2 Delivery O2 Flow Rate FiO2 08/25/20 10:10 97.4 75 17 111/75 100 Room Air 08/25/20 07:36 2.0 I&O- Last 24 Hours up to 6 AM 08/25/20 06:00 Intake Total 460.0 ml Output Total 1000 ml Balance -540.0 ml JOSE KOCH DO Aug 25, 2020 11:37
[2020-08-25] MEDS: PIPERACILLIN/TAZOBACTAM SOD 2.25 GM in D5W MINI-BAG PLUS 50 ML IV SCH ×3 (11:51→23:55)
[2020-08-25] MEDS ORDERED: **VANCO AFTER HD** MISC XX SCH (16:00)
[2020-08-25 16:15] LABS: HEMATOCRIT 27.6 % (42.0-52.0); HEMOGLOBIN 8.5 g/dl (13.5-17.5)
[2020-08-25] MEDS: ATORVASTATIN 20 MG TAB PO SCH (20:38)
[2020-08-25] MEDS ORDERED: IRON SUCROSE 100MG 5ML VIAL (J1756 PER 1MG) IV SCH (22:00)
[2020-08-26] VITALS (12 sets, daily range): BP systolic 80–114; BP diastolic 43–63
[2020-08-26] MEDS: SLF 3 ML SYR IV SCH ×3 (05:31→21:16)
[2020-08-26 06:02] LABS: BASO % 0.7 % (0.0-1.0); EOS # 0.2 10^3/uL (0.0-0.5); EOS % 5.1 % (0.0-3.0); HEMATOCRIT 27.8 % (42.0-52.0); HEMOGLOBIN 8.8 g/dl (13.5-17.5); LYMPH # 0.9 10^3/uL (1.5-5.0); LYMPH % 22.8 % (24.0-44.0); MEAN CORPUSCULAR HGB CONC 31.7 g/dl (32.0-36.5); MEAN CORPUSCULAR VOLUME 88.5 fl (80.0-96.0); MONO # 0.6 10^3/uL (0.0-0.8); MONO % 13.6 % (0.0-5.0); NEUTROPHILS # 2.4 10^3/uL (1.5-8.5); NEUTROPHILS % 57.6 % (36.0-66.0); RED BLOOD COUNT 3.14 10^6/uL (4.30-6.10); WHITE BLOOD COUNT 4.1 10^3/uL (4.0-10.0)
[2020-08-26 06:05] LABS: PLATELET COUNT, AUTOMATED 65 10^3/uL (150-450)
[2020-08-26 06:39] LABS: ALBUMIN 2.8 GM/DL (3.2-5.2); BILIRUBIN,TOTAL 0.6 MG/DL (0.2-1.0); CALCIUM LEVEL 8.2 MG/DL (8.8-10.2); CREATININE FOR GFR 11.5 MG/DL (0.70-1.30); GLOMERULAR FILTRATION RATE 4.7 (>42); MAGNESIUM LEVEL 2.5 MG/DL (1.8-2.4); POTASSIUM SERUM 4.6 MEQ/L (3.5-5.1); TOTAL PROTEIN 7.3 GM/DL (6.4-8.2)
[2020-08-26] MEDS: MIDODRINE 5 MG TAB PO SCH ×3 (08:00→15:55)
[2020-08-26] MEDS: (RENVELA) SEVELAMER **CARBONate** 800 MG TAB PO SCH ×3 (08:33→17:06)
[2020-08-26] MEDS: HumaLOG INSULIN (NovoLOG) PER UNIT SC SCH ×4 (08:34→21:15)
[2020-08-26] MEDS: PIPERACILLIN/TAZOBACTAM SOD 2.25 GM in D5W MINI-BAG PLUS 50 ML IV SCH ×2 (08:34→15:54)
[2020-08-26] MEDS: DOCUSATE SODIUM 100MG CAPSULE PO SCH ×2 (09:00→21:15)
[2020-08-26] MEDS: PROPRANOLOL 10 MG TAB PO SCH ×2 (09:00→20:52)
--- NOTE | 2020-08-26 10:32 | IPN ---
INPATIENT PROGRESS NOTE DATE: 08/25/20 SUBJECTIVE: Kristopher was seen and examined this morning at the bedside. He was dialyzed yesterday with only 1 liter of fluid removed because of hypotension of hemodialysis. His hemoglobin and hematocrit have down trended. His fecal occult blood test came back positive. He received 1 unit of packed red blood cells today. He continues on H&H monitoring. His blood pressures have improved with the addition of midodrine. He denies any shortness of breath and tells me that his weakness feels better as compared to yesterday. PHYSICAL EXAMINATION: Vital signs: Temperature 98, pulse 78, respiratory rate 18, blood pressure 114/60, saturating 99-100% on room air. Intake yesterday was 780, dialysis yesterday removed 1 liter. Weight on the bed scale today is 117.9 kg. General: Patient is seen sitting out of bed to the chair awake, alert, oriented times 3, interactive, conversational, in no apparent distress. HEENT: Extraocular muscles are intact. There is conjunctival pallor. Tongue is moist. Neck: Supple. Jugular veins are not elevated while he is sitting upright. Heart: Sounds are regular S1 and S2. There is 1+ leg edema bilaterally. Respiratory: He is seen on room air. There is symmetric air entry bilaterally diminished at the bases, no crackle or rale. Abdomen: Soft, obese and nontender. There are bowel sounds. Extremities: Negative for cyanosis or clubbing. There is a fistula in the right arm which is patent. There is 1+ leg edema. Neurologic: He is oriented times 3, interactive, at baseline mentation. Skin: Warm with some pallor. LABORATORY DATA: White count 4.4, hemoglobin 7.3, platelets 55. Sodium 136, potassium 4.2, BUN 57, magnesium 2.3. Transferrin saturation 9%. Fecal occult blood test is positive. INPATIENT MEDICATIONS: Reviewed by myself. He was started on vancomycin and Zosyn by the primary team renally dosed. I started him on iron with hemodialysis. Yesterday he was started on midodrine 5 mg three times a day. His remainder of medications are unchanged from prior. PROBLEMS/PLAN: 1. End-stage renal disease: On hemodialysis on a Sunday, Sunday, Sunday schedule. Patient is off of his maintenance schedule due to a missed treatment earlier this week. His next dialysis will be August 26. He was started on midodrine because of considerable hypotension including hypotension of hemodialysis. I will give him 1 unit of packed red blood cells with his next dialysis treatment and we will try to remove 1-2 liters as tolerated by his hemodynamics. 2. Anemia secondary to end-stage renal disease, iron deficiency and GI bleed: The patient is given 1 unit of packed red blood cells today. He is on Protonix 40 mg by mouth daily. He has a history of esophageal varices for which he is on propanolol as well with holding parameters. [facility] and he continues on hemoglobin and hematocrit monitoring. He is also on low dose aspirin and he was on Plavix because of recent angioplasty within the past 12 months, but this appears to have been held by the primary team. 3. Hypotension: It is likely due to GI bleed and possibly related to sepsis. His blood cultures showed no growth for 48 hours. He does have chronic wounds. He is on broad spectrum antibiotics. I also started him on midodrine. 4. Diastolic congestive heart failure: Volume status is acceptable. He is saturating very well on room air. We will try to remove 1-2 liters with dialysis tomorrow as tolerated by his hemodynamics. He is on an oral fluid restriction.
[2020-08-26] MEDS ORDERED: DARBEPOETIN 100 MCG/0.5 ML *DIALYSIS* SYRINGE (J0882) IV SCH (10:45)
[2020-08-26] MEDS: GABAPENTIN 100 MG CAP PO SCH ×2 (14:14→21:15)
[2020-08-26] MEDS: EZETIMIBE 10 MG TAB (ZETIA) PO SCH (14:14)
[2020-08-26] MEDS: PANTOPRAZOLE 40MG TAB (PROTONIX) PO SCH (14:14)
[2020-08-26] MEDS: ASPIRIN 81 MG CHEW TABLET PO SCH (14:14)
--- NOTE | 2020-08-26 17:34 | REPVR ---
PROCEDURE INFORMATION: Exam: CT Chest Without Contrast; Diagnostic Exam date and time: 08/26/2020 4:38 PM Age: 70 years old Clinical indication: Other: Hemoptysis; Additional info: Hemoptisis TECHNIQUE: Imaging protocol: Diagnostic computed tomography of the chest without contrast. 3D rendering (Not supervised by radiologist): MIP and/or 3D reconstructed images were created by the technologist. Radiation optimization: All CT scans at this facility use at least one of these dose optimization techniques: automated exposure control; mA and/or kV adjustment per patient size (includes targeted exams where dose is matched to clinical indication); or iterative reconstruction. COMPARISON: CR Chest, 2 view PA, Lat 08/23/2020 5:47 PM FINDINGS: Lungs: Linear atelectasis and/or scar in the right lung base. No pulmonary consolidation. Mild diffuse bronchial wall thickening. Pleural space: Unremarkable. No pneumothorax. No pleural effusion. Heart: Status post CABG. No cardiomegaly or pericardial effusion. Aorta: Mild atherosclerosis of the thoracic aorta. No thoracic aortic aneurysm. Atherosclerosis of the upper abdominal aorta and branch vessels. Lymph nodes: Unremarkable. No enlarged lymph nodes. Liver: Hepatic cirrhosis. Gallbladder and bile ducts: Calcified stones within the gallbladder. Spleen: Mild splenomegaly. Intraperitoneal space: Small volume of abdominal ascites. 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 Soft tissues: Unremarkable. Other findings: Mild mesenteric edema, indeterminate etiology. IMPRESSION: 1. Mild diffuse bronchial wall thickening. 2. Linear atelectasis and/or scar in the right lung base. 3. Hepatic cirrhosis with mild splenomegaly and small volume of abdominal ascites. 4. Cholelithiasis. 5. Mild mesenteric edema, indeterminate etiology. Electronically signed by: Kosta Jones On 08/26/2020 17:34:46 PM
--- NOTE | 2020-08-26 17:49 | IPNPDOC ---
Text Note Date of Service The patient was seen on 08/26/20. NOTE Subjective: Patient complains of cough with some blood. Denied fever, chills, chest pain, palpitations nausea or vomiting Objective: GENERAL APPEARANCE: Obese male HEENT: no scleral icterus, plus JVD, EOMI CARDIOVASCULAR: S1S2 LUNGS: Diminished lung sounds bilaterally ABDOMEN: soft & not tender w palpitation MUSCULOSKELETAL: +2 pitting edema of lower extremities, chronic wounds right upper extremity, hips, buttocks, in between his legs and on the plantar surface of his foot. R foot wound NEUROLOGICAL: cranial nerve function from 2-12 intact intact, follows commands, speech not dysarthric Assessment and plan 70-year-old male ESRD on hemodialysis who missed dialysis session last week comes to the hospital because of progressive weakness admitted for medical management and dialysis. Sepsis Resolved In the Emergency Room patient had fever of 101.3 and was hypotensive overnight with systolic in the 80s-90s. Blood work revealed leukocytosis, per calcitonin 0.6 Most likely source of infection sacral wound. Unlikely infection from the right foot, looks stage II-III noninfected MRSA screen negative Continue Zosyn Dr. Raines recommended cupola charger evaluation of right foot End-stage renal diseases Continue dialysis Nephrology team follows him Hyperkalemia Improved after dialysis Thrombocytopenia Chronic condition Coronary artery diseases Recent stent placement, continue home cardioprotective medication Due to blood loss anemia I dc Plavix for now Anemia of chronic diseases/acute blood loss anemia secondary to GI loss Stool positive for blood Patient has a history of GI bleed and esophageal varices Continue Protonix H&H every 6 hours Hemoglobin stable Continue to monitor Continue Aranesp Follow-up with GI team in the outpatient settings Liver cirrhosis w hx of decompensated hepatic encephalopathy & esophageal varices Continue propranolol Follow-up with GI team in the outpatient settings No GI coverage was week Hemoptysis Patient will need endoscopy in the outpatient settings. Also patient will need bronchoscopy in the outpatient settings CT chest was done and showed Mild diffuse bronchial wall thickening. Linear atelectasis and/or scar in the right lung base. Hepatic cirrhosis with mild splenomegaly and small volume of abdominal ascites.. Cholelithiasis Deconditioning Secondary to multiple diseases PT/OT SCDs/KARINA due to his chronic thrombocytopenia Diastolic CHF Positive JVD, orthopnea, increased BNP Acute secondary to volume overload Continue scheduled dialysis VS,Fishbone, I+O VS, Fishbone, I+O Laboratory Tests 08/26/20 05:33 Vital Signs Date Time Temp Pulse Resp B/P (MAP) Pulse Ox O2 Delivery O2 Flow Rate FiO2 08/26/20 14:00 98.2 78 18 114/61 (78) 98 Room Air 08/26/20 12:45 2.0 I&O- Last 24 Hours up to 6 AM 08/26/20 06:00 Intake Total 1890 ml Output Total 0 ml Balance 1890 ml JOSE KOCH Aug 26, 2020 17:49
--- NOTE | 2020-08-26 18:11 | CR ---
CONSULTATION DATE: 08/26/2020 [facility] CONS[facility] REQUESTING PHYSICIAN: Raoul Campoverde MD. REASON FOR CONSULTATION: Right foot plantar wound. HISTORY OF PRESENT ILLNESS: This 70-year-old neuropathic diabetic male adequately controlled on dialysis, was recently admitted for change in mental status as he missed multiple dialysis sessions. Patient has stabilized and was found to have a large callous on the plantar surface of his right foot at the base of the first metatarsal head. According to the patient, he has seen a early childhood educator aide for this which was treated with shaving the callous only to have it return. When seen, the patient is afebrile and it is difficult to ascertain if there is a wound below the covering callous or to adequately measure and/or described the characteristics of the wound if present. The patient is scheduled for discharge in the next day or so. A podiatry consult is to be ordered and I spoke directly to Dr. Moscoso, the early childhood educator aide who is familiar with the patient. RECOMMENDATIONS: Bedside removal of the callous with a curette is indicated to identify whether or not there is an underlying open wound and also, to prevent further deterioration if there is; as the callous will form a traumatic pressure etiology, worsening the situation. Once this has been debrided a foam dressing can be applied. We will make arrangements to have the patient evaluated at our wound clinic for further treatment. I discussed with Dr. Moscoso the need for an arterial evaluation and if the patient is still hospitalized, an arterial ultrasound would be indicated. [facility] CENTERAlyce
[2020-08-26] MEDS: ATORVASTATIN 20 MG TAB PO SCH (21:14)
--- NOTE | 2020-08-26 23:31 | IPN ---
NEPHROLOGY PROGRESS NOTE DATE: 08/26/2020 SUBJECTIVE: The patient is seen and examined this morning in the Hemodialysis Unit receiving his treatment. He denies any acute overnight events or complaints. He tells me that he was able to walk to the bathroom this morning but he felt lightheadedness while he did that. He denied any shortness of breath. His dialysis treatment is complicated again with low blood pressure, systolic in the 80's. VITAL SIGNS: Temperature 98.2, pulse 78, respiratory rate 18, blood pressure 114/61, saturating 98-99% on room air. INTAKE AND OUTPUT: Intake yesterday was 1,890. Dialysis today removed 1,250. Weight in the bed scale today is 119.7 kg. PHYSICAL EXAMINATION: GENERAL APPEARANCE: The patient is seen in the Hemodialysis Unit receiving his treatment, awake, alert, oriented x3, interactive, conversational, in no apparent distress. HEENT: The extraocular muscles are intact. Ear, nose and throat are unremarkable. His jugular veins are mildly elevated. HEART: Regular. S1, S2, there is 1+ leg edema bilaterally. LUNGS: Anterior auscultation only showed symmetric air movement. No wheeze or rhonchus. ABDOMEN: Obese, soft and nontender. There are bowel sounds. EXTREMITIES: Fistula in the right arm which is presently in use and 1+ leg edema bilaterally. NEUROLOGICAL: He is oriented, interactive and at baseline mentation. PSYCHIATRIC: Appropriate mood and affect. LABORATORY STUDIES: White count 4.1, hemoglobin 8.8, platelets 65. Sodium 136, potassium 4.6, BUN 71, magnesium 2.5, transferrin saturation 9%. IMAGING: CT chest without contrast showed mild diffuse bronchial wall thickening, linear atelectasis and/or scarring right lung base, hepatic cirrhosis with small volume of abdominal ascites, cholelithiasis, mild mesenteric edema. INPATIENT MEDICATIONS: The patient's medications were reviewed by myself. He continues on IV Zosyn. I note his Vancomycin was stopped by the Primary Service. He is ordered for Aranesp and iron with hemodialysis. His remainder of medications are unchanged over the past 24 hours. PROBLEMS: 1. End-stage renal disease, on hemodialysis the patient's dialysis treatment today was complicated by hypotension of hemodialysis. Blood pressure down into the 80's, as was his last treatment on Sunday. He is on Midodrine. We were only able to remove 1.2 liters with his dialysis treatment today. His electrolytes are acceptable. In view of GI bleed, he did not receive any Heparin with dialysis. 2. Anemia related to chronic renal failure, GI bleed along with iron deficiency his FOBT was positive. He does have a history of GI bleed and esophageal varices. He is on Propanolol with holding parameters. He is also on Protonix. I have ordered IV iron and Aranesp with hemodialysis as well and he was transfused another unit of blood and he continues on hemoglobin and hematocrit monitoring. 3. Diastolic congestive heart failure - The patient is in mild to moderate fluid overload. He has peripheral edema. His CAT scan also incidentally did note some mesenteric edema. Unfortunately his dialysis treatment today and his prior dialysis treatment were both complicated by hypotension of hemodialysis, most likely related to infection and sepsis from his sacral wound. I did start him on Midodrine. We were able to remove 1.2 liters with his treatment today. He continues on oral fluid restriction. 4. Infected sacral wound/sepsis - The patient is on Zosyn as per Primary Team. Wound Care has also been called. He has been afebrile the past 24 hours. There is no leukocytosis. He is requiring Midodrine for hemodynamic support, and I do plan to give him albumin with his next dialysis treatment both for wound healing and also for blood pressure support, so we can try and remove a little bit more fluid.
[2020-08-27] VITALS: BP 98/51
[2020-08-27 04:00] VITALS: BP 105/58
[2020-08-27 06:05] LABS: BASO % 0.6 % (0.0-1.0); EOS # 0.2 10^3/uL (0.0-0.5); EOS % 6.9 % (0.0-3.0); HEMATOCRIT 27.8 % (42.0-52.0); HEMOGLOBIN 8.7 g/dl (13.5-17.5); LYMPH # 0.9 10^3/uL (1.5-5.0); LYMPH % 27.5 % (24.0-44.0); MEAN CORPUSCULAR HEMOGLOBIN 27.9 pg (27.0-33.0); MEAN CORPUSCULAR HGB CONC 31.3 g/dl (32.0-36.5); MEAN CORPUSCULAR VOLUME 89.1 fl (80.0-96.0); MONO # 0.5 10^3/uL (0.0-0.8); MONO % 14.7 % (0.0-5.0); NEUTROPHILS # 1.6 10^3/uL (1.5-8.5); RED BLOOD COUNT 3.12 10^6/uL (4.30-6.10); WHITE BLOOD COUNT 3.2 10^3/uL (4.0-10.0)
[2020-08-27] MEDS: SLF 3 ML SYR IV SCH ×2 (06:11→13:09)
[2020-08-27 06:13] LABS: PLATELET COUNT, AUTOMATED 60 10^3/uL (150-450)
[2020-08-27 06:38] LABS: ALBUMIN 2.7 GM/DL (3.2-5.2); BILIRUBIN,TOTAL 0.5 MG/DL (0.2-1.0); CREATININE FOR GFR 10.6 MG/DL (0.70-1.30); GLOMERULAR FILTRATION RATE 5.1 (>42); MAGNESIUM LEVEL 2.5 MG/DL (1.8-2.4); POTASSIUM SERUM 4.8 MEQ/L (3.5-5.1); TOTAL PROTEIN 6.4 GM/DL (6.4-8.2)
[2020-08-27 07:55] VITALS: BP 104/51
[2020-08-27 09:00] VITALS: BP 104/51
[2020-08-27] MEDS: PROPRANOLOL 10 MG TAB PO SCH (09:00)
[2020-08-27] MEDS: DOCUSATE SODIUM 100MG CAPSULE PO SCH (09:22)
[2020-08-27] MEDS: (RENVELA) SEVELAMER **CARBONate** 800 MG TAB PO SCH ×2 (09:22→13:08)
[2020-08-27] MEDS: GABAPENTIN 100 MG CAP PO SCH (09:22)
[2020-08-27] MEDS: EZETIMIBE 10 MG TAB (ZETIA) PO SCH (09:22)
[2020-08-27] MEDS: PIPERACILLIN/TAZOBACTAM SOD 2.25 GM in D5W MINI-BAG PLUS 50 ML IV SCH ×3 (09:22)
[2020-08-27] MEDS: ASPIRIN 81 MG CHEW TABLET PO SCH (09:22)
[2020-08-27] MEDS: MIDODRINE 5 MG TAB PO SCH ×2 (09:22→13:08)
[2020-08-27] MEDS: HumaLOG INSULIN (NovoLOG) PER UNIT SC SCH ×2 (09:22→13:08)
[2020-08-27] MEDS: PANTOPRAZOLE 40MG TAB (PROTONIX) PO SCH (09:22)
[2020-08-27] MEDS ORDERED: IRON1TAB2 PO (10:42)
[2020-08-27] MEDS ORDERED: MIDO5TA PO (10:42)
[2020-08-27] MEDS ORDERED: DOK1CAP7 PO (10:42)
[2020-08-27 11:40] VITALS: BP 134/63
--- NOTE | 2020-08-27 14:27 | CR ---
CONSULTATION DATE: 08/27/2020 REASON FOR CONSULTATION: Foot ulcer. HISTORY OF PRESENT ILLNESS: Kristopher Tyson is a 70-year-old diabetic male, well known to me, who was admitted on 08/23/2020 due to weakness due to missing dialysis sessions. He was noted to have an ulceration on his right foot. Dr. Raines had seen him in teleconference, and it was recommended I see him for debridement. MEDICAL HISTORY: 1. End-stage renal disease with right fistula. 2. Diabetes with neuropathy. 3. History of cerebrovascular accident (CVA). 4. Fatty liver. SURGICAL HISTORY: 1. Left eye cataract. 2. Left medial meniscal repair. 3. Right 3rd toe amputation. 4. Appendectomy. SOCIAL HISTORY: Denies alcohol and denies tobacco use. FAMILY HISTORY: Noncontributory. ALLERGIES: No known drug allergies. REVIEW OF SYSTEMS: He denies nausea, vomiting, fever, or chills. Lower extremity examination: Pedal pulses are palpable. There is an ulceration on the right plantar forefoot. There is no surrounding erythema, necrotic tissue, or purulence. ASSESSMENT: A 70-year-old diabetic male with right foot ulceration. TREATMENT: Debridement was performed at bedside using #10 blade, including callus, subcutaneous tissue in excisional fashion. Patient is being discharged today. An Optifoam dressing is to be applied, and he has followup scheduled with Dr. Raines. Wound care per his recommendations.
--- NOTE | 2020-08-27 14:54 | IPN ---
PROGRESS NOTE DATE: 08/27/2020 SUBJECTIVE: Patient is seen and examined this morning at the bedside. He denies any overnight events or complaints. Denies any shortness of breath. Did not have any recurrent bloody bowel movements. He was transfused one unit of packed red blood cells with dialysis yesterday, but his hemoglobin has not really up-trended, it was 8.8 predialysis and is 8.7 today. He notes tele visit with wound care and is going to follow-up with Dr. Moscoso. OBJECTIVE: VITAL SIGNS: Temperature 98.0, pulse 68, respiratory rate 18, blood pressure 134/63, saturating 99% on room air. INTAKE AND OUTPUT: Intake yesterday was 1220. Dialysis removed 1250. Weight on the bed scale today is 118.4 kg. GENERAL: The patient is sitting out of bed to the chair. Elderly obese male in no apparent distress. HEENT: Extraocular muscles are intact. Tongue is moist. NECK: Supple. The jugular veins were not elevated while he was sitting upright. HEART: Sounds are regular, S1, S2. There is 1+ leg edema bilaterally. LUNGS: Show symmetric air entry that is diminished at the bases. No crackle or rales. ABDOMEN: Soft, obese, and nontender. There are bowel sounds. EXTREMITIES: Fistula on the right arm is patent with thrill and bruit and there is 1+ leg edema. NEUROLOGIC: Oriented x3, interactive, and at baseline mentation. PSYCHIATRIC: Appropriate mood and affect. LABORATORY DATA: Today show sodium 136, potassium 4.8, bicarbonate 23, BUN 66, hemoglobin 8.7, platelets 60,000. INPATIENT MEDICATIONS: These were reviewed by myself. Aranesp was ordered with dialysis yesterday. The remainder of medications are unchanged from prior. PROBLEMS: 1. End-stage renal disease on hemodialysis on Sunday, Sunday, and Sunday schedule. His last two dialysis treatments were both complicated by hypotension of hemodialysis in the setting of gastrointestinal (GI) bleed. He is now on midodrine 5 mg three times a day and he will need to continue that outpatient as well. We were only able to remove 1.2 liters of his treatment yesterday. He is going to be dialyzed this evening as an outpatient and we are holding heparin with hemodialysis because of recent GI bleed. He received a unit of blood with dialysis yesterday. 2. Anemia related to chronic renal failure, GI bleed, iron deficiency. The patient has a history of GI bleed and esophageal varices. He is on propranolol with holding parameters. He is on Protonix. He is receiving IV iron and Aranesp with hemodialysis. He was given two units of blood on this admission. He needs to follow-up with GI as an outpatient. 3. Diastolic congestive heart failure. There is some mild fluid overload. We have been having trouble removing fluid because of hypotension of hemodialysis. The patient is now on midodrine 5 mg three times a day and I have explained to him that he will need to continue this outpatient as well, and we will try to increase fluid removal as tolerated by hemodynamics. He continues on oral fluid restriction. 4. Hypotension of hemodialysis. It complicates are ability to remove fluid. He is not on any antihypertensive agents with the exception of propranolol 5 mg b.i.d. (history of esophageal varices) with holding parameter. Continue midodrine. Continue fluid removal as tolerated by blood pressure and hemodynamics. 5. Sacral and foot wound. As per wound care, podiatry, and primary service. 6. Disposition: I do not feel that the patient is optimized for discharge. Given recurrent hypotension of hemodialysis and decreased fluid removal with his last two treatments, I am concerned that he may become more volume overloaded as an outpatient and also ongoing GI bleed. His pretransfusion and posttransfusion hemoglobin the past 24 hours has not come up, but the patient is anxious for discharge and is set to follow-up with GI as an outpatient next week and hospitalist service is discharging him today. We will monitor on the dialysis unit where he has weekly hemoglobin check and we keep an eye on the fluid status as well.
--- NOTE | 2020-08-29 21:06 | DS.PDOC ---
Discharge Summary General Date of Admission Aug 23, 2020 at 22:44 Date of Discharge 08/27/20 Discharge Summary PROCEDURES PERFORMED DURING STAY: [None]. ADMITTING DIAGNOSES: Sepsis End-stage renal diseases Hyperkalemia Thrombocytopenia Coronary artery diseases Anemia of chronic diseases/acute blood loss anemia secondary to GI loss Liver cirrhosis w hx of decompensated hepatic encephalopathy & esophageal varices Hemoptysis Deconditioning Diastolic CHF DISCHARGE DIAGNOSES: Sepsis End-stage renal diseases Hyperkalemia Thrombocytopenia Coronary artery diseases Anemia of chronic diseases/acute blood loss anemia secondary to GI loss Liver cirrhosis w hx of decompensated hepatic encephalopathy & esophageal varices Hemoptysis Deconditioning Diastolic CHF COMPLICATIONS/CHIEF COMPLAINT: Fever, Hyperkalemia,Esrd. HISTORY OF PRESENT ILLNESS: 70-year-old male ESRD on hemodialysis who missed dialysis session last week comes to the hospital because of progressive weakness admitted for medical management and dialysis. HOSPITAL COURSE: Sepsis Resolved In the Emergency Room patient had fever of 101.3 and was hypotensive overnight with systolic in the 80s-90s. Blood work revealed leukocytosis, per calcitonin 0.6 Most likely source of infection sacral wound. Unlikely infection from the right foot, looks stage II-III noninfected MRSA screen negative Continue Zosyn Dr. Raines recommended damage appraiser evaluation of right foot End-stage renal diseases Continue dialysis Nephrology team follows him Hyperkalemia Improved after dialysis Thrombocytopenia Chronic condition Coronary artery diseases Recent stent placement, continue home cardioprotective medication Due to blood loss anemia I dc Plavix for now Anemia of chronic diseases/acute blood loss anemia secondary to GI loss Stool positive for blood Patient has a history of GI bleed and esophageal varices Continue Protonix H&H every 6 hours Hemoglobin stable Continue to monitor Continue Aranesp Follow-up with GI team in the outpatient settings Liver cirrhosis w hx of decompensated hepatic encephalopathy & esophageal varices Continue propranolol Follow-up with GI team in the outpatient settings No GI coverage was week Hemoptysis Patient will need endoscopy in the outpatient settings. Also patient will need bronchoscopy in the outpatient settings CT chest was done and showed Mild diffuse bronchial wall thickening. Linear atelectasis and/or scar in the right lung base. Hepatic cirrhosis with mild splenomegaly and small volume of abdominal ascites.. Cholelithiasis Deconditioning Secondary to multiple diseases PT/OT SCDs/KARINA due to his chronic thrombocytopenia Diastolic CHF Positive JVD, orthopnea, increased BNP Acute secondary to volume overload Continue scheduled dialysis DISCHARGE MEDICATIONS: Please see below. ALLERGIES: Please see below. PHYSICAL EXAMINATION ON DISCHARGE: VITAL SIGNS: Please see below. GENERAL APPEARANCE: Obese male HEENT: no scleral icterus, plus JVD, EOMI CARDIOVASCULAR: S1S2 LUNGS: Diminished lung sounds bilaterally ABDOMEN: soft & not tender w palpitation MUSCULOSKELETAL: +2 pitting edema of lower extremities, chronic wounds right upper extremity, hips, buttocks, in between his legs and on the plantar surface of his foot. R foot wound NEUROLOGICAL: cranial nerve function from 2-12 intact intact, follows commands, speech not dysarthric LABORATORY DATA: Please see below. IMAGING: [facility] NAME: KALYANI WHITMORE DATE OF : 1950 BUSINESS NUMBER: [id number] AGE: 70 SEX: M REPORT #: [id number] ROOM: [facility] TECHNOLOGIST: WESLEY DOCTOR: JOSE KOCH DO Ordered for Date&Time: 08/26/20 1638 cc: [~ rep ct ivnm] Service Date&Time: This report is in Signed status. Interpretation performed by [facility]. Thank you for having your radiology procedures performed at [facility] RADIOLOGY REPORT Date&Time printed: [~ rep prt dt last] [~ rep prt tm last] Page 2 of 2 [place] [id number] RADIOLOGY REPORT This report is in Signed status. Interpretation performed by [facility]. Thank you for having your radiology procedures performed at [facility] RADIOLOGY REPORT Date&Time printed: [~ rep prt dt last] [~ rep prt tm last] Page 1 of 1 PROCEDURE INFORMATION: Exam: CT Chest Without Contrast; Diagnostic Exam date and time: 08/26/2020 4:38 PM Age: 70 years old Clinical indication: Other: Hemoptysis; Additional info: Hemoptisis TECHNIQUE: Imaging protocol: Diagnostic computed tomography of the chest without contrast. 3D rendering (Not supervised by radiologist): MIP and/or 3D reconstructed images were created by the technologist. Radiation optimization: All CT scans at this facility use at least one of these dose optimization techniques: automated exposure control; mA and/or kV adjustment per patient size (includes targeted exams where dose is matched to clinical indication); or iterative reconstruction. COMPARISON: CR Chest, 2 view PA, Lat 08/23/2020 5:47 PM FINDINGS: Lungs: Linear atelectasis and/or scar in the right lung base. No pulmonary consolidation. Mild diffuse bronchial wall thickening. Pleural space: Unremarkable. No pneumothorax. No pleural effusion. Heart: Status post CABG. No cardiomegaly or pericardial effusion. Aorta: Mild atherosclerosis of the thoracic aorta. No thoracic aortic aneurysm. Atherosclerosis of the upper abdominal aorta and branch vessels. Lymph nodes: Unremarkable. No enlarged lymph nodes. Liver: Hepatic cirrhosis. Gallbladder and bile ducts: Calcified stones within the gallbladder. Spleen: Mild splenomegaly. Intraperitoneal space: Small volume of abdominal ascites. 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 Soft tissues: Unremarkable. Other findings: Mild mesenteric edema, indeterminate etiology. IMPRESSION: 1. Mild diffuse bronchial wall thickening. 2. Linear atelectasis and/or scar in the right lung base. 3. Hepatic cirrhosis with mild splenomegaly and small volume of abdominal ascites. 4. Cholelithiasis. 5. Mild mesenteric edema, indeterminate etiology. Electronically signed by: Kosta Briseno On 08/26/2020 17:34:46 PM DD: KOSTA BRISENO MD 08/26/20 1638 DT: MIKEY 08/26/20 1734 DS: ANDREY 08/26/20 173 [~ rep ct labl] PROGNOSIS: fair ACTIVITY: [As tolerated]. DIET: renal DISPOSITION: 06 Home Health Service. ITEMS TO FOLLOWUP ON ON OUTPATIENT: Follow-up with PCP, GI team and checkering machine adjuster in the outpatient settings DISCHARGE CONDITION: [Stable]. TIME SPENT ON DISCHARGE: Greater than 40 minutes. Vital Signs/I&Os Vital Signs Date Time Temp Pulse Resp B/P (MAP) Pulse Ox O2 Delivery O2 Flow Rate FiO2 08/27/20 11:40 98.0 68 18 134/63 (86) 99 Room Air 08/26/20 12:45 2.0 Microbiology Microbiology 08/24/20 Stool Occult Blood (NATHAN) - Final, Complete 08/23/20 Blood Culture - Final, Complete NO GROWTH AFTER 5 DAYS 08/23/20 Blood Culture - Final, Complete NO GROWTH AFTER 5 DAYS 08/23/20 Respiratory Virus Panel (PCR) (NATHAN) - Final, Complete Discharge Medications Scheduled Aspirin (Aspirin) 81 Mg Tab.chew, 81 MG PO DAILY, (Reported) Atorvastatin Calcium (Atorvastatin Calcium) 40 Mg Tablet, 40 MG PO QHS, (Reported) Docusate Sodium (Dok) 100 Mg Capsule, 100 MG PO BID Ergocalciferol (Vitamin D2) (Vitamin D2) 50,000 Units Cap, 50,000 UNITS PO 1XWK, (Reported) SATURDAYS Ezetimibe (Ezetimibe) 10 Mg Tablet, 10 MG PO DAILY, (Reported) Ferrous Sulfate (Iron) 325 Mg Tablet, 1 TAB PO BID Gabapentin (Gabapentin) 100 Mg Capsule, 100 MG PO BID, (Reported) Glipizide (Glipizide ER) 5 Mg Tab.er.24, 5 MG PO BID, (Reported) 0800, 1700 Midodrine HCl (Midodrine HCl) 5 Mg Tablet, 5 MG PO 08,12,16 Pantoprazole Sodium (Pantoprazole Sodium) 40 Mg Tablet.dr, 40 MG PO DAILY, (Reported) Propranolol HCl (Propranolol HCl) 10 Mg Tab, 5 MG PO BID, (Reported) Sevelamer Carbonate (Sevelamer Carbonate) 800 Mg Tablet, 800 MG PO TID, (Reported) Vit B Comp No.3/Folic/C/Biotin (Nephro-Liza Rx Tablet) 1 Each Tablet, 1 TAB PO DAILY, (Reported) Scheduled PRN Sildenafil Citrate (Viagra) 50 Mg Tablet, 50 MG PO ASDIRECTED PRN for ERECTILE DYSFUNCTION, (Reported) Allergies Coded Allergies: No Known Allergies (Unverified , 06/14/20) JOSE KOCH DO Aug 29, 2020 21:06
== END 2020-08-27 14:00 | disposition home health service (06) | DRG 853 ==
LOC: M ED 14:29 → M ED INP 22:44 → ENRESERV 08-24 12:22 → M PCU 08-24 13:47
PROVIDERS: ADMIT Family Medicine; ATTEND Internal Medicine
PROC: 5A1D70Z Performance of Urinary Filtration, Intermittent, Less than 6 Hours Per Day (ICD-10-PCS; 2020-08-24)
PROC: 30233N1 Transfusion of Nonautologous Red Blood Cells into Peripheral Vein, Percutaneous Approach (ICD-10-PCS; 2020-08-25)
PROC: 0JBQ0ZZ Excision of Right Foot Subcutaneous Tissue and Fascia, Open Approach (ICD-10-PCS; principal; 2020-08-27)
DX: A41.9 Sepsis, unspecified organism (principal); N18.6 End stage renal disease; L89.153 Pressure ulcer of sacral region, stage 3; I69.354 Hemiplegia and hemiparesis following cerebral infarction affecting left non-dominant side; I85.10 Secondary esophageal varices without bleeding; D62 Acute posthemorrhagic anemia; I50.32 Chronic diastolic (congestive) heart failure; R04.2 Hemoptysis; E87.5 Hyperkalemia; I25.10 Atherosclerotic heart disease of native coronary artery without angina pectoris; E11.22 Type 2 diabetes mellitus with diabetic chronic kidney disease; K76.0 Fatty (change of) liver, not elsewhere classified; L84 Corns and callosities; I95.3 Hypotension of hemodialysis; E11.40 Type 2 diabetes mellitus with diabetic neuropathy, unspecified; K74.60 Unspecified cirrhosis of liver; D69.59 Other secondary thrombocytopenia; D63.1 Anemia in chronic kidney disease; R53.1 Weakness; Z79.82 Long term (current) use of aspirin; Z79.84 Long term (current) use of oral hypoglycemic drugs; Z91.14 Patient's other noncompliance with medication regimen; Z86.010 Personal history of colon polyps; Z91.15 Patient's noncompliance with renal dialysis; Z99.2 Dependence on renal dialysis; Z89.421 Acquired absence of other right toe(s); Z98.42 Cataract extraction status, left eye; Z79.899 Other long term (current) drug therapy; Z95.5 Presence of coronary angioplasty implant and graft; Z79.02 Long term (current) use of antithrombotics/antiplatelets

== ENCOUNTER → 2020-10-05 | Outpatient (CLI) | payer MEDICARE, BC, OTHER ==
[~2020-10-05] MED LIST changes: +DOK1CAP7 PO; +IRON1TAB2 PO; +ISOVUE-300 61% 50ML VIAL As Ordered ONE; +LIDOCAINE 1% MDV 20ML VIAL As Ordered ONE; +MIDAZOLAM INJ 2MG/2ML VIAL (J2250 PER 1MG) As Ordered ONE; +MIDO5TA PO; +fentaNYL 100 MCG/2 ML INJECTION (J3010) As Ordered ONE
[2020-10-05 14:10] VITALS: BP 143/71
--- NOTE | 2020-10-05 14:18 | ROOPDOC ---
[facility] Report Of Operation Report of Operation DATE OF PROCEDURE: 10/05/20 PREPROCEDURE DIAGNOSES: End-stage renal disease with decreased thrill and difficulty cannulation right Bakari fistula POSTPROCEDURE DIAGNOSES: Same PROCEDURE: 1. Ultrasound-guided access right Bakari fistula 2. Right upper extremity fistulogram and central venogram 3. Angioplasty right cephalic vein in the forearm with a 7 x 100 Murray balloon 4. Angioplasty right cephalic vein in the upper arm shoulder into the subclavian vein and superior vena cava with the 7 x 200 Murray balloon 5. Completion venogram SURGEON: Jada Dooley MD ANESTHESIA: Local anesthesia 1 mL lidocaine. Moderate intravenous conscious sedation was supervised by Dr. Dooley. The patient was independently monitored by registered nurse assigned to the Department of radiology using automated blood pressure, EKG, and pulse oximetry. The detailed sedation record is permanently stored in the hospital information system. The following is a brief sedation record: Start time 13:18, stop time 13:43, Versed 1 mg IV, fentanyl 50 g IV. CONTRAST: 24 mL Isovue-300 INDICATION FOR PROCEDURE: This a very pleasant 70-year-old gentleman with end- stage renal disease currently dialyzing with the Bakari fistula here for a fistulogram for increased difficulty with cannulation at dialysis and decreased thrill. Risks benefits and alternatives were explained to the patient needs agreeable to proceed. Informed consent was obtained. INTERPRETATION: 1. AV anastomosis is widely patent on ultrasound with excellent color-flow. No stenosis is noted. Images were saved. 2. Right Bakari fistula is widely patent in the forearm and we'll branch is successfully coiled with no active flow. The cephalic vein does taper a bit towards the antecubital crease, then has excellent outflow through both the cephalic vein and the basilic vein. The cephalic vein however does have a bit of narrowing towards the junction with the subclavian vein, and at the thoracic outlet. Both are about 40% stenotic. Although the vein is widely patent in the upper arm, it is a bit small, I estimate about 6 mm. Otherwise, there is excellent outflow through widely patent basilic vein axillary vein subclavian vein superior vena cava back to the heart. 3. After angioplasty of the forearm cephalic vein with a 7 x 100 Murray balloon, there is widely patent flow with no significant residual stenosis and no extravasation. We then exchange the balloon for 7 x 200 Murray balloon for the upper arm and shoulder, and to three-minute inflations provided excellent outflow with no residual stenosis, no extravasation, and an excellent thrill in the fistula. REPORT OF OPERATION: The patient was brought to the angiographic suite in stable condition. His right upper extremity was prepped and draped in a sterile fashion. A timeout was performed. Local anesthesia was administered to skin and subcutaneous tissue over the cephalic vein near the AV anastomosis. The AV anastomosis was examined with ultrasound and found to be widely patent. Please see interpretation above. We then used ultrasound to access the vein under ultrasound guidance. A wire was passed through this access needle was removed and a 4 Egyptian sheath was placed and flushed with saline. A fistulogram and central venogram were performed, please see interpretation above. Sedation was administered without complication. We then advanced a Glidewire into the central system through the cephalic vein under fluoroscopic guidance. The sheath was exchanged for a 5 Egyptian sheath and flushed with saline. 7 x 100 Murray balloon was advanced across the cephalic vein in the forearm and a three-minute inflations was performed. Following this there is widely patent flow informed cephalic vein with no significant residual stenosis no extravasation. We then exchange is balloon for 7 x 200 Murray balloon and this was used to angioplasty the upper arm and shoulder aspect of the cephalic vein into the superior vena cava. Three-minute inflations were performed and following this there was marked improvement in flow with an excellent thrill in the fistula. No pulsatility was noted and no lagging contrast was noted. There is excellent flow through both the basilic and cephalic vein outflow is in the upper arm. Local anesthesia was administered around the sheath in a [id number] Prolene suture was secured at the sheath was removed. Sterile dressings were applied in good hemostasis was noted. We then utilized ultrasound to linda the fistula on the skin and Tegaderms were placed over the markings. The patient was then taken to recovery in stable condition. ESTIMATED BLOOD LOSS: Approximately 5 mL. COMPLICATIONS: none. PLAN: Okay to use AV fistula for dialysis. Okay to resume home diet and medications. We appreciate the opportunity to participate in the care of this patient. JADA DOOLEY MD Oct 05, 2020 14:18
== END ==
LOC: M IRPRO 11:29
PROVIDERS: ATTEND Surgery Vascular Surgery
DX: T82.590A Other mechanical complication of surgically created arteriovenous fistula, initial encounter (principal); N18.6 End stage renal disease; E11.22 Type 2 diabetes mellitus with diabetic chronic kidney disease; I12.0 Hypertensive chronic kidney disease with stage 5 chronic kidney disease or end stage renal disease; E78.5 Hyperlipidemia, unspecified; X58.XXXA Exposure to other specified factors, initial encounter; Z79.899 Other long term (current) drug therapy; Z99.2 Dependence on renal dialysis
CPT/HCPCS: 36902; 36907; 99152; 99153; C1725; C1769; C1894; J1644; J2250; J3010; Q9967

== ENCOUNTER 2020-10-14 18:30 | Inpatient (IN) | payer MEDICARE, BC, OTHER ==
[~2020-10-14] VITALS: Ht 172.7 cm; Wt 112.6 kg
[~2020-10-14 18:30] MED LIST changes: +ASPI-569 PO; -ASPI81TAEC PO; -ISOVUE-300 61% 50ML VIAL As Ordered ONE; -LIDOCAINE 1% MDV 20ML VIAL As Ordered ONE; -MIDAZOLAM INJ 2MG/2ML VIAL (J2250 PER 1MG) As Ordered ONE; -fentaNYL 100 MCG/2 ML INJECTION (J3010) As Ordered ONE
--- OUTSIDE RECORDS SUMMARY | 2020-10-14 18:37 | CCD | Continuity of Care Document ---
Author Kristopher Mckeon DPM Organization Unknown Address [address] [place] [address], [address] [place] [address] Phone [phone] Care Team Providers Care Ad Trafficker Name Role Phone Irina Mayorga M.D.M [phone] Problems Active Problems Provider Date Type 2 diabetes mellitus with ulcer Dimas Moscoso DPM Ons et: 02/25/2017 Pressure ulcer of other site, stage 1 Dimas Moscoso DPM O nset: 02/25/2017 Social History Type Date Description Comments Sex Unknown ETOH Use Denies alcohol use Tobacco Use Start: Unknown Patient has never smoked Allergies, Adverse Reactions, Alerts Description No Known Drug Allergies Medications Active Medications SIG Qnty Indications Ordering Provide r Date Viagra 50mg Tablets TK 1 T PO 1 Hour B Sexual Activity prn Unknown Doxycycline Hyclate 100mg Capsules Irina Mayorga MD Amoxicillin/Clavulanate Potassium 500-125mg Tablets TK 1 T PO bid Unknown Sodium Polystyrene Sulfonate 15GM/60ML Suspension Irina Mayorga MD Viagra 25mg Tablets Irina Mayorga MD Glimepiride 1mg Tablets TK 1 T PO qd Unknown SSD 1% Cream Apply To Ulcer b id Unknown Renvela 800mg Tablets TK 2 TS PO tid WC Unknown Dok 100mg Capsules TK One C P O bid Unknown Fenofibrate 160mg Tablets Irina Mayorga MD Atorvastatin Calcium 20mg Tablets TK 1 T PO qd Unknown Vitamin D (Ergocalciferol) [id number] Capsules TK 1 C PO Once A WK Unknown 00 Adela-Liza Tablets TK 1 T PO qd Unknown Atenolol 25mg Tablets Unknown Sensipar 30mg Tablets Irina Mayorga MD Sulfamethoxazole/Trimethoprim DS 800-160mg Tablets Irina Mayorga MD Sulfamethoxazole-Trimethoprim 400-80mg Tablets Mila Foster M.D. Senna 8.6mg Tablets TK 2 TS P O bid Unknown Pantoprazole Sodium 40mg Tablets D R TK 1 T PO D Unknown Immunizations Description No Information Available Vital Signs Date Vital Result Comment 03/16/2020 12:56pm Height 68 inches 5'8" Weight 249.00 lb BP Systolic 125 mmHg BP Diastolic 73 mmHg Heart Rate 70 /min BMI (Body Mass Index) 37.9 kg/m2 02/15/2017 1:37pm Height 68 inches 5'8" BP Systolic 104 mmHg BP Diastolic 58 mmHg Heart Rate 60 /min Results Description No Information Available Procedures Date Code Description Status 09/03/2020 55698 Debridement 6-10 Nails Electric Completed 09/03/2020 22622 Debridement Skin/Tissue Complete d 08/27/2020 10266 Debridement Skin/Tissue Complete d 07/08/2020 47410 Debridement Of Wound 20 SQ CM Co mpleted 07/01/2020 20333 Debridement Of Wound 20 SQ CM Co mpleted 06/10/2020 20706 Debridement Of Wound 20 SQ CM Co mpleted 06/01/2020 97338 Debridement Skin/Tissue Complete d 05/18/2020 37128 Debridement Of Wound 20 SQ CM Co mpleted 05/11/2020 90854 Debridement Of Wound 20 SQ CM Co mpleted 04/27/2020 67243 Debridement Of Wound 20 SQ CM Co mpleted 04/08/2020 57017 Debridement Of Wound 20 SQ CM Co mpleted 03/23/2020 79788 Debridement Of Wound 20 SQ CM Co mpleted 03/16/2020 84587 Debridement Of Wound 20 SQ CM Co mpleted 03/16/2020 65758 Debridement 6-10 Nails Electric Completed Medical Devices Description No Information Available Encounters Type Date Location Provider Dx Diagnosis Office Visit 03/16/2020 1:15p [facility] Dimas Moscoso, DPM R60.0 Localized edema E11.42 Type 2 diabetes mellitus wit h diabetic polyneuropathy E11.621 Type 2 diabetes mellitus wit h foot ulcer L89.891 Pressure ulcer of other site , stage 1 B35.1 Tinea unguium Assessments Date Code Description Provider 09/03/2020 E11.621 Type 2 diabetes mellitus with fo ot ulcer Dimas Moscoso, DPM 09/03/2020 L89.892 Pressure ulcer of other site, st age 1 Dimas Moscoso, DPM 09/03/2020 B35.1 Tinea unguium Dimas Moscoso, DPM 09/03/2020 E11.42 Type 2 diabetes mellitus with di abetic polyneuropathy Dimas Moscoso, DPM 08/27/2020 E11.621 Type 2 diabetes mellitus with fo ot ulcer Dimas Moscoso, DPM 08/27/2020 L89.892 Pressure ulcer of other site, st age 1 Dimas Moscoso, DPM 07/08/2020 E11.621 Type 2 diabetes mellitus with fo ot ulcer Dimas Moscoso, DPM 07/08/2020 L89.891 Pressure ulcer of other site, st age 1 Dimas Moscoso, DPM 07/01/2020 E11.621 Type 2 diabetes mellitus with fo ot ulcer Dimas Moscoso, DPM 07/01/2020 L89.891 Pressure ulcer of other site, st age 1 Dimas Moscoso, DPM 06/10/2020 E11.621 Type 2 diabetes mellitus with fo ot ulcer Dimas Moscoso, DPM 06/10/2020 L89.891 Pressure ulcer of other site, st age 1 Dimas Moscoso, DPM 06/01/2020 E11.621 Type 2 diabetes mellitus with fo ot ulcer Dimas Moscoso, DPM 06/01/2020 E11.621 Type 2 diabetes mellitus with fo ot ulcer Dimas Moscoso, DPM 06/01/2020 L89.892 Pressure ulcer of other site, st age 1 Dimas Moscoso, DPM 06/01/2020 L89.892 Pressure ulcer of other site, st age 1 Dimas Moscoso, DPM 05/18/2020 E11.621 Type 2 diabetes mellitus with fo ot ulcer Dimas Moscoso, DPM 05/18/2020 L89.891 Pressure ulcer of other site, st age 1 Dimas VinayKishore Moscoso, DPM 05/11/2020 E11.621 Type 2 diabetes mellitus with fo ot ulcer Dimas Moscoso, DPM 05/11/2020 L89.891 Pressure ulcer of other site, st age 1 Dimas Moscoso, DPM 04/27/2020 E11.621 Type 2 diabetes mellitus with fo ot ulcer Dimas Moscoso, DPM 04/27/2020 L89.891 Pressure ulcer of other site, st age 1 Dimas Moscoso, DPM 04/16/2020 E11.42 Type 2 diabetes mellitus with di abetic polyneuropathy Dimas Moscoso, DPM 04/08/2020 E11.621 Type 2 diabetes mellitus with fo ot ulcer Dimas Moscoso, DPM 04/08/2020 L89.891 Pressure ulcer of other site, st age 1 Dimas Moscoso, DPM 03/23/2020 E11.621 Type 2 diabetes mellitus with fo ot ulcer Dimas Moscoso, DPM 03/23/2020 L89.891 Pressure ulcer of other site, st age 1 Dimas Moscoso, DPM 03/16/2020 R60.0 Localized edema Dimas Moscoso, DPM 03/16/2020 E11.42 Type 2 diabetes mellitus with di abetic polyneuropathy Dimas Moscoso, DPM 03/16/2020 E11.621 Type 2 diabetes mellitus with fo ot ulcer Dimas Moscoso, DPM 03/16/2020 L89.891 Pressure ulcer of other site, st age 1 Dimas Moscoso, DPM 03/16/2020 B35.1 Tinea unguium Dimas Moscoso DPM Plan of Treatment Future Appointment(s):* 11/12/2020 10:30 am - Dimas Moscoso DPM at [facility] Functional Status Description No Information Available Mental Status Description No Information Available Referrals Description No Information Available
--- OUTSIDE RECORDS SUMMARY | 2020-10-14 18:37 | CCD | Continuity of Care Document ---
Author Author Kristopher ROSEN [place] Organization Unknown Address [address], [address] [place] [address] Phone [phone] Care Team Providers Care Program Manager Environmental Planning Name Role Phone Irina Mayorga M.D. [facility] [phone] Problems Description No Information Available Social History Type Date Description Comments Sex Unknown ETOH Use Denies alcohol use Recreational Drug Use Denies Drug Use Tobacco Use Start: Unknown Denies Smoking Smoking Status Reviewed: 09/16/20 Denies Smoking Allergies, Adverse Reactions, Alerts Description No Known Drug Allergies Medications Active Medications SIG Qnty Indications Ordering Provide r Date Lactulose 20GM/30ML Solution 20 gm per dose, take upto twice daily to get atleast 1-2 loose stools per day. ( adjust as needed). 600ml K74.60 Timur Villanueva M.D. 2019 K72.90 Ensure High Protein Liquid 200 ml per day in evening once or twice daily. 30units Timur Marks ala, M.D. 12/25/2019 Atorvastatin Calcium 20mg Tablets 1tab po daily Unknown Pantoprazole Sodium 40mg Tablets D R Take One Tablet By Mouth One Half Hour Before Breakfast @8Am 90tabs K31. 7 Timur Villanueva M.D. Adela-Liza Tablets 1tab po da doug Unknown Vitamin D (Ergocalciferol) 34919Vpso Capsules 1tab po weekly Unknown Glipizide 5mg Tablets 1tab po bid Unknown Gabapentin 100mg Capsules Take Two Capsules By Mouth @8Am and Take Two Capsules By Mouth @8PM Unknown Propranolol HCL 10mg Tablets Take One Tablet By Mouth @8Am and Take One Tablet @5PM 180tabs Timur Villanueva M.D. Viagra 50mg Tablets as needed Unknown Calcium Acetate (Phos Binder) 667mg Capsules 3 three times a day Unknown Immunizations Description No Information Available Vital Signs Date Vital Result Comment 09/16/2020 9:43am BP Systolic 140 mmHg BP Diastolic 80 mmHg Height 68 inches 5'8" Weight 246.00 lb BMI (Body Mass Index) 37.4 kg/m2 [place] Body Weight 154 lb Weight 111.586 kg BSA (Body Surface Area) 2.23 m2 04/06/2020 12:12pm BP Systolic 126 mmHg BP Diastolic 69 mmHg Heart Rate 87 /min Height 68 inches 5'8" Weight 247.12 lb BMI (Body Mass Index) 37.6 kg/m2 [place] Body Weight 154 lb Weight 112.096 kg BSA (Body Surface Area) 2.24 m2 Results Test Acquired Date Facility Test Result H/L Range Note Liver Profile 07/23/2020 [facility] [address] [place] [address] [id number] [phone] Ast/Sgot 32 U/L Normal 7-37 Alt/SGPT 27 U/L Normal 12-78 Alkaline Phosphatase 137 U/L High 45-117 Bilirubin,Total 0.8 mg/dL Normal 0.2-1.0 Bilirubin,Direct 0.2 mg/dL Normal 0.0-0.2 Total Protein 7.9 GM/DL Normal 6.4-8.2 Albumin 3.1 GM/DL Low 3.2-5.2 Albumin/Globulin Ratio 0.6 Normal Laboratory test finding 07/23/2020 [facility] [address] [place] [address] [id number] [phone] Alpha Fetoprotein Tumor Quant 3.8 NG/ML Normal <8 .1 1 1 THE AFP ASSAY IS PERFORMED O N THE SIEMENS Dragon InsideAUR BY CHEMILUMINESCENCE AND SHOULD NOT BE COMPARED INTERCHANGEABLY WITH OTHER METHODS. IT SHOULD NOT BE USED ALONE A SCREENING TEST OR DIAGNOSIS FOR THE PRESENCE OR ABSENCE OF MALIGNANT DISEASE. THESE RESULTS ARE NOT INTERPRETABLE IN FEMALES. PREDICTIONS OF DISEASE RECURRENCE SHOULD NOT BE BASED SOLELY ON VALUES OBTAINED FROM SERIAL PATIENT SERUM VALUES. Procedures Date Code Description Status 03/30/2020 37382 Moderate Sedation Se rvices; Same Phys Intl 15 Mins; PT >= 5 Years Completed 03/30/2020 92760 Dialysis Circuit W/ Transluminal Balloon Angioplasty, Peripheral Completed Medical Devices Description No Information Available Encounters Type Date Location Provider Dx Diagnosis Office Visit 04/06/2020 10:45a [facility] DAMIEN Horan N18.6 End stage renal disease Z99.2 Dependence on renal dialysis Office Visit 03/18/2020 11:45a [facility] DAMIEN Horan N18.6 End stage renal disease Z99.2 Dependence on renal dialysis Assessments Date Code Description Provider 04/06/2020 N18.6 End stage renal disease DAMIEN Rivers 04/06/2020 Z99.2 Dependence on renal dialysis DAMIEN Evans 03/30/2020 T82.590A Other mechanical com plication of surgically created arteriovenous fistula, initial encounter Jada Dooley MD 03/30/2020 N18.6 End stage renal disease Jada emerson MD 03/18/2020 N18.6 End stage renal disease DAMIEN Rivers 03/18/2020 Z99.2 Dependence on renal dialysis DAMIEN Evans Plan of Treatment No Information Available Functional Status Description No Information Available Mental Status Description No Information Available Referrals Refer to Reason for Referral Status Appt Date Jada Dooley MD [facility]RILL Scheduled 021 [address], [address] [place] [address] [phone]
--- OUTSIDE RECORDS SUMMARY | 2020-10-14 18:37 | CCD ---
Author Author [facility] Organization [facility] Address Unknown Phone Unavailable Care Team Providers Care Motion Graphics Artist Name Role Phone Chava Raines Unavailable PROBLEMS Type Condition ICD9-CM Code [id number] Code Onset Dates Condition S tatus W/U Status Risk SNOMED Code Notes Problem Abscess of right buttock L02.31 Active confirmed 50578549 Problem Abscess of right hip L02.415 Active confirmed 042100 Problem Abscess, perineum L02.215 Active confirmed 3 0571767 Problem Non-pressure chronic ulcer o f other part of left foot with fat layer exposed L97.522 Active confirmed 162794086 Problem Traumatic hematoma of buttock, initial encounter S 30.0XXA Active confirmed 09584812 Problem custodial current use of insulin Z79.4 Active conf irmed 586643627 Problem Open wound of right buttock, subsequent encounter S31.819D Active confirmed 908513929 Problem Open wound of left buttock, subsequent encounter S 31.829D Active confirmed 695329789 Problem Type 2 diabetes mellitus with other skin complications E11.628 Active confirmed 81084475 Problem Type 2 diabetes mellitus with foot ulcer E11.621 Active confirmed 435053021 Problem 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 L97.412 Active confirmed 702531564 Problem Non-pressure chronic ulcer o f other part of unspecified foot with unspecified severity L97.509 Active confirmed 494808189 Problem Open wound of right hip, subsequent encounter S71. 001D Active confirmed 992486910 Problem Open wound of scrotum, subsequent encounter S31.30 XD Active confirmed 031378045 Problem Erectile dysfunction due to diseases classified elsewhere N52.1 Active confirmed 351079644 Problem Folliculitis L73.9 Active confirmed 9237759 6 ALLERGIES Allergen (clinical drug ingredient) Drug/Non Drug Allergy do cumented on EMR Reaction Allergy Type Onset Date Status lidocaine Lidocaine([facility] Code:[address]-44) Rash Drug Allergy Inactive ENCOUNTERS from 1950 to 2020-09-22 Encounter Location Date Provider Diagnosis [facility] [address] [place] [address] Aug Chava Raines Type 2 diabetes mellitus with foot ulcer E11.621 and Non-pressure chronic ulcer of right heel and midfoot with fat layer exposed L97.412 IMMUNIZATIONS Vaccine Route Administration Date Status Influenza (High Dose 65 & up) Unknown Oct 04, 2017 Re fused Influenza (6mo & up) Fluzone Unknown Jul 05, 2017 Ref used SOCIAL HISTORY Tobacco Use: Social History Observation Description Date Details (start date - stop date) Never Smoker Sex Assigned At : Social History Observation Description Sex Assigned At Unknown Alcohol Screening: Question Answer Notes Did you have a drink containing alcohol in the past year? No Points 0 Interpretation Negative Tobacco Use: Question Answer Notes Are you a: never smoker Additional Findings: Tobacco User Chews tobacco former REASON FOR REFERRAL No Information VITAL SIGNS Weight 230 lbs Aug, Weight-kg PER PT kg Aug, Height 5'7" in Aug, BMI 36.02 kg/m2 Aug, Heart Rate 64 /min Aug, Respiratory Rate 18 /min Aug, Temperature 97 degrees Fahrenheit Aug, Oximetry 98 Aug, Blood pressure systolic 111 mm Hg Aug, Blood pressure diastolic 64 mm Hg Aug, MEDICATIONS Medication SIG (Take, Route, Frequency, Duration) Notes Start Da te End Date Status Glimepiride 2 MG 1 tablet with breakfast or t he first main meal of the day Orally Once a day Not-Taking Pantoprazole Sodium 40 MG Orally Active Lutein 40 MG 1 tablet with a meal Orally Daily Not-Taking Ketorolac Tromethamine 0.4 % 1 drop into affected eye as needed Ophthalmic Four times a day Not-Taking Vitamin D2 50,000 1 tablet Orally once per week Active Senna Not-Taking Gabapentin 100 MG 1 capsule Orally Once a day for 30 day(s) Active Levaquin 500 MG 1 tablet Orally Once a day for 10 day(s) 2 8 Jun, 2017 Not-Taking Sildenafil Citrate 50 MG 1 tablet as needed Orally Once a day for 3 0 day(s) Unknown Daela-Liza 1 tablet Orally Once a day Unknown PrednisoLONE Acetate 1 % 1 drop into affected eye Ophthalmic As Direc haylee Not-Taking Sevelamer Carbonate 800 MG 1 tablet with meals Orally Three times a day for 30 day(s) Active Atorvastatin Calcium 20 MG 1 tab Orally Daily Not-Taking Sodium Chloride Flush Not -Taking GlipiZIDE XL 5 MG 1 tablet with food Orally Once a day for 30 day(s) Active Propranolol HCl 10 MG 1 tablet Orally Once a day for 30 day(s) Active Protein - as directed Orally Active PhosLo 667 MG 2 cap Orally Three times a day Not-Taking Sensipar 30 MG 1 tablet after a meal with food Orally Once a week Not-Taking Propranolol HCl 10 MG 1 tablet Orally Twice a day 08/21 tab AM 1 tab PM Not-Taking Silvadene Not-Taking Nephro-Liza Active PROCEDURES No Information RESULTS No Results REASON FOR VISIT Right foot ulcer MEDICAL (GENERAL) HISTORY Type Description Date Medical History diabeties type 2 Medical History heart disese Medical History stage 4 renal failure Medical History stroke Surgical History appendectomy 2000 Surgical History heart bypass 2005 Surgical History toe amputation 2016 Surgical History endoscope 2017 Surgical History L eye cataract removal 2016 Surgical History stents placed 2019 Hospitalization History related to endoscope/ ulcer 2017 Goals Section No Information Health Concerns No Information MEDICAL EQUIPMENT No Information MENTAL STATUS No Information FUNCTIONAL STATUS No Information ASSESSMENTS Encounter Date Diagnosis Assessment Notes Treatment Notes Treatm ent Clinical Notes Aug, Type 2 diabetes mellitus with foot ulcer (ICD-10 - E11.621) Aug, 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 (ICD-10 - L97.412) Aug, Other Debridement of a wound, infection, or burn material was printed PLAN OF TREATMENT Next Appt Details 2 Weeks Reason: Provider Name:Chava Raines, 10:15:00 AM, [place], [address], Insurance Providers Payer Name Payer Address Payer Phone Insured Name Patient Relati onship to Insured Coverage Start Date Coverage End Date [facility] [address] [facility] [id number] [phone] KALYANI WHITMORE [facility] MEDICARE Part A and B [address] [facility] [address] [phone] KALYANI WHITMORE self
--- OUTSIDE RECORDS SUMMARY | 2020-10-14 18:37 | CCD ---
Author Author [facility] Organization [facility] Address Unknown Phone Unavailable Care Team Providers Care Public Relations Professional Name Role Phone Chava Raines Unavailable PROBLEMS Type Condition ICD9-CM Code [id number] Code Onset Dates Condition S tatus W/U Status Risk SNOMED Code Notes Problem Abscess of right buttock L02.31 Active confirmed 08801358 Problem Abscess of right hip L02.415 Active confirmed 439821 Problem Abscess, perineum L02.215 Active confirmed 3 5970710 Problem Non-pressure chronic ulcer o f other part of left foot with fat layer exposed L97.522 Active confirmed 286339735 Problem Traumatic hematoma of buttock, initial encounter S 30.0XXA Active confirmed 64875106 Problem FDC current use of insulin Z79.4 Active conf irmed 526003775 Problem Open wound of right buttock, subsequent encounter S31.819D Active confirmed 978767681 Problem Open wound of left buttock, subsequent encounter S 31.829D Active confirmed 360508961 Problem Type 2 diabetes mellitus with other skin complications E11.628 Active confirmed 51906861 Problem Type 2 diabetes mellitus with foot ulcer E11.621 Active confirmed 619833903 Problem 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 001D Active confirmed 802300266 Problem Open wound of scrotum, subsequent encounter S31.30 XD Active confirmed 972531334 Problem Erectile dysfunction due to diseases classified elsewhere N52.1 Active confirmed 438539402 Problem Folliculitis L73.9 Active confirmed 3417813 6 ALLERGIES Allergen (clinical drug ingredient) Drug/Non Drug Allergy do cumented on EMR Reaction Allergy Type Onset Date Status lidocaine Lidocaine([facility] Code:[address]-51) Rash Drug Allergy Inactive ENCOUNTERS from 1950 to 2020-09-28 Encounter Location Date Provider Diagnosis [facility] [address] [place] [address] Aug Chava Raines IMMUNIZATIONS Vaccine Route Administration Date Status Influenza [...] REASON FOR REFERRAL No Information VITAL SIGNS No information MEDICATIONS Medication SIG (Take, Route, Frequency, Duration) Notes Start Da te End Date Status Ketorolac Tromethamine 0.4 % 1 drop into affected eye as needed Ophthalmic Four times a day Not-Taking Propranolol HCl 10 MG 1 tablet Orally Once a day for 30 day(s) Active PrednisoLONE Acetate 1 % 1 drop into affected eye Ophthalmic As Direc haylee Not-Taking Vitamin D2 50,000 1 tablet Orally once per week Active Sevelamer Carbonate 800 MG 1 tablet with meals Orally Three times a day for 30 day(s) Active Atorvastatin Calcium 20 MG 1 tab Orally Daily Not-Taking Protein - as directed Orally Active Sildenafil Citrate 50 MG 1 tablet as needed Orally Once a day for 3 0 day(s) Unknown Senna Not-Taking Levaquin 500 MG 1 tablet Orally Once a day for 10 day(s) 2 8 Jun, 2017 Not-Taking Gabapentin 100 MG 1 capsule Orally Once a day for 30 day(s) Active Lutein 40 MG 1 tablet with a meal Orally Daily Not-Taking Silvadene Not-Taking GlipiZIDE XL 5 MG 1 tablet with food Orally Once a day for 30 day(s) Active Nephro-Liza Active Glimepiride 2 MG 1 tablet with breakfast or t he first main meal of the day Orally Once a day Not-Taking PhosLo 667 MG 2 cap Orally Three times a day Not-Taking Sodium Chloride Flush Not -Taking Propranolol HCl 10 MG 1 tablet Orally Twice a day /2 tab AM 1 tab PM Not-Taking Adela-Liza 1 tablet Orally Once a day Unknown Pantoprazole Sodium 40 MG Orally Active Sensipar 30 MG 1 tablet after a meal with food Orally Once a week Not-Taking PROCEDURES No Information RESULTS No Results REASON FOR VISIT home health question MEDICAL (GENERAL) HISTORY Type Description Date Medical [...] No Information FUNCTIONAL STATUS No Information ASSESSMENTS No Information PLAN OF TREATMENT Next Appt Details Provider Name:Chava Raines, 09:15:00 AM, [address] [place], [address], Insurance Providers Payer Name Payer Address Payer Phone Insured Name Patient Relati onship to Insured Coverage Start Date Coverage End Date MEDICARE Part A and B [address] [facility] [address] [phone] KALYANI WHITMORE [facility] [address] [facility] [id number] KALYANI WHITMORE
--- OUTSIDE RECORDS SUMMARY | 2020-10-14 18:37 | CCD | Continuity of Care Document ---
Author Kristopher Mckeon DPM Organization Unknown Address [address] [place] [address], [address] [place] [address] Phone [phone] Care Team Providers Care Director Loss Prevention Name Role Phone Irina Mayorga M.D.M [phone] Problems Active Problems Provider Date Type 2 [...] T PO qd Unknown Vitamin D (Ergocalciferol) 01931Guxa Capsules TK 1 C PO Once A [...] Information Available Procedures Date Code Description Status 08/27/2020 56727 Debridement Skin/Tissue Complete d 07/08/2020 84486 Debridement Of Wound 20 SQ CM Co mpleted 07/01/2020 72603 Debridement Of Wound 20 SQ CM Co mpleted 06/10/2020 93911 Debridement Of Wound 20 SQ CM Co mpleted 06/01/2020 00017 Debridement Skin/Tissue Complete d 05/18/2020 94574 Debridement Of Wound 20 SQ CM Co mpleted 05/11/2020 99377 Debridement Of Wound 20 SQ CM Co mpleted 04/27/2020 33317 Debridement Of Wound 20 SQ CM Co mpleted 04/08/2020 46037 Debridement Of Wound 20 SQ CM Co mpleted 03/23/2020 40975 Debridement Of Wound 20 SQ CM Co mpleted 03/16/2020 86712 Debridement Of Wound 20 SQ CM Co mpleted 03/16/2020 16092 Debridement 6-10 Nails Electric Completed Medical Devices Description No Information Available Encounters Type Date Location Provider Dx Diagnosis Office Visit 03/16/2020 1:15p [place] [facility] Dimas Moscoso DPM R60.0 Localized edema E11.42 Type 2 diabetes mellitus wit h diabetic polyneuropathy E11.621 Type 2 diabetes mellitus wit h foot ulcer L89.891 Pressure ulcer of other site , stage 1 B35.1 Tinea unguium Assessments Date Code Description Provider 08/27/2020 E11.621 Type 2 diabetes mellitus with [...] diabetes mellitus with fo ot ulcer Dimas RKishore Moscoso, DPM 06/01/2020 L89.892 Pressure ulcer of other site, st age 1 Dimas Moscoso, DPM 06/01/2020 L89.892 Pressure ulcer of other site, st age 1 Dimas Moscoso, DPM 05/18/2020 E11.621 Type 2 diabetes mellitus with fo ot ulcer Dimas Moscoso, DPM 05/18/2020 L89.891 Pressure ulcer of other site, st age 1 Dimas Moscoso, DPM 05/11/2020 E11.621 Type 2 diabetes [...] other site, st age 1 Dimas Moscoso, TIMOTEOM 03/16/2020 B35.1 Tinea unguium Dimas Moscoso DPM Plan of Treatment Future Appointment(s):* 11/12/2020 10:30 am - Dimas Moscoso DPM at [facility] [place] Functional Status Description No Information Available Mental Status Description No Information Available Referrals Description No Information Available
--- OUTSIDE RECORDS SUMMARY | 2020-10-14 18:38 | CCD ---
Author Author [facility] Organization [facility] Address Unknown Phone Unavailable Care Team Providers Care Appliance Painter And Refinisher Name Role Phone Nicki Dooley MD Unavailable Unavailable CedyanelistranNicki loaiza MD Unavailable Unavailable Nicki Dooley MD Unavailable Unavailable Nicki Dooley MD Unavailable Unavailable Nicki Dooley MD Unavailable Unavailable Nicki Dooley MD Unavailable Unavailable Nicki Dooley MD Unavailable Unavailable Nicki Dooley MD Unavailable Unavailable Nicki Dooley MD Unavailable Unavailable Nicki Dooley MD Unavailable Unavailable Nicki Dooley MD Unavailable Unavailable Nicki Dooley MD Unavailable Unavailable Nicki Dooley MD Unavailable Unavailable Nicki Dooley MD Unavailable Unavailable Nicki Dooley MD Unavailable Unavailable Vinay MOSCOSO DPM Unavailable Unavailable Vinay MOSCOSO DPM Unavailable Unavailable MAJAK, R EB DPM Unavailable Unavailable MAJAK, R EB DPM Unavailable Unavailable MAJAK, R EB DPM Unavailable Unavailable MAJAK, R EB DPM Unavailable Unavailable MAJAK, R EB DPM Unavailable Unavailable MAJAK, R EB DPM Unavailable Unavailable MAJAK, R EB DPM Unavailable Unavailable MAJAK, R EB DPM Unavailable Unavailable MAJAK, R EB DPM Unavailable Unavailable MAJAK, R EB DPM Unavailable Unavailable MAJAK, R EB DPM Unavailable Unavailable MAJAK, R EB DPM Unavailable Unavailable MAJAK, R EB DPM Unavailable Unavailable MAJAK, R EB DPM Unavailable Unavailable MAJAK, R EB DPM Unavailable Unavailable MAJAK, R EB DPM Unavailable Unavailable MAJAK, R EB DPM Unavailable Unavailable MAJAK, R EB DPM Unavailable Unavailable MAJAK, R EB DPM Unavailable Unavailable MAJAK, R EB DPM Unavailable Unavailable MAJAK, R EB DPM Unavailable Unavailable MAJAK, R EB DPM Unavailable Unavailable MAJAK, R EB DPM Unavailable Unavailable MAJAK, R EB DPM Unavailable Unavailable MAJAK, R EB DPM Unavailable Unavailable MAJAK, R EB DPM Unavailable Unavailable MAJAK, R EB DPM Unavailable Unavailable MAJAK, R EB DPM Unavailable Unavailable Diallo, L Jany RPA Unavailable Unavailable Diallo, L Jany RPA Unavailable Unavailable Diallo, L Jany RPA Unavailable Unavailable Diallo, L Jany RPA Unavailable Unavailable Diallo, L Jany RPA Unavailable Unavailable Diallo, L Jany RPA Unavailable Unavailable [place]iallo, L Jany RPA Unavailable Unavailable [place]iallo, L Jany RPA Unavailable Unavailable [place]iallo, L Jany RPA Unavailable Unavailable [place]iallo, L Jany RPA Unavailable Unavailable Diallo, L Jany RPA Unavailable Unavailable [place]iallo, L Jany RPA Unavailable Unavailable Diallo, L Jany RPA Unavailable Unavailable Diallo, L Jany RPA Unavailable Unavailable Diallo, L Jany RPA Unavailable Unavailable Diallo, L Jany RPA Unavailable Unavailable Diallo, L Jany RPA Unavailable Unavailable Diallo, L Jany RPA Unavailable Unavailable Diallo, L Jany RPA Unavailable Unavailable Diallo, L Jany RPA Unavailable Unavailable Diallo, L Jany RPA Unavailable Unavailable Diallo, L Jany RPA Unavailable Unavailable Diallo, L Jany RPA Unavailable Unavailable Diallo, L Jany RPA Unavailable Unavailable [place]iallo, L Jany RPA Unavailable Unavailable Diallo, L Jany RPA Unavailable Unavailable [place]iallo, L Jany RPA Unavailable Unavailable Diallo, L Jany RPA Unavailable Unavailable [place]iallo, L Jany RPA Unavailable Unavailable Diallo, L Jany RPA Unavailable Unavailable Diallo, L Jany RPA Unavailable Unavailable Diallo, L Jany RPA Unavailable Unavailable YUDITHRALA K MARCUS GAONA Unavailable Unavailable YUDITHRALSylvia Clayton MD Unavailable Unavailable CHANDRALASylvia MD Unavailable Unavailable YUDITHRALSylvia Clayton MD Unavailable Unavailable YUDITHRALASylvia MD Unavailable Unavailable YUDITHRALSylvia Clayton MD Unavailable Unavailable YUDITHRALASylvia MD Unavailable Unavailable YUDITHRALASylvia MD Unavailable Unavailable YUDITHRALASylvia MD Unavailable Unavailable YUDITHRALASylvia MD Unavailable Unavailable YUDITHRALSylvia Clayton MD Unavailable Unavailable YUDITHRALSylvia Clayton MD Unavailable Unavailable Sylvia SILVA MD Unavailable Unavailable Sylvia SILVA MD Unavailable Unavailable Sylvia SILVA MD Unavailable Unavailable Sylvia SILVA MD Unavailable Unavailable Sylvia SILVA MD Unavailable Unavailable Sylvia SILVA MD Unavailable Unavailable Sylvia SILVA MD Unavailable Unavailable Sylvia SILVA MD Unavailable Unavailable Syvlia SILVA MD Unavailable Unavailable Sylvia SILVA MD Unavailable Unavailable Sylvia SILVA MD Unavailable Unavailable Sylvia SILVA MD Unavailable Unavailable Sylvia SILVA MD Unavailable Unavailable Sylvia SILVA MD Unavailable Unavailable Sylvia SILVA MD Unavailable Unavailable Sylvia SILVA MD Unavailable Unavailable Sylvia SILVA MD Unavailable Unavailable Sylvia SILVA MD Unavailable Unavailable Sylvia SILVA MD Unavailable Unavailable Sylvia SILVA MD Unavailable Unavailable Sylvia SILVA MD Unavailable Unavailable Matilde Fernando MD Unavailable Unavailable Matilde Fernando MD Unavailable Unavailable Matilde Fernando MD Unavailable Unavailable Matilde Fernando MD Unavailable Unavailable Matilde Fernando MD Unavailable Unavailable Matilde Fernando MD Unavailable Unavailable El-Khally, A Ziad MD Unavailable Unavailable El-Khally, A Ziad MD Unavailable Unavailable El-Khally, A Ziad MD Unavailable Unavailable El-Khally, A Ziad MD Unavailable Unavailable El-Khally, A Ziad MD Unavailable Unavailable El-Khally, A Ziad MD Unavailable Unavailable El-Khally, A Ziad MD Unavailable Unavailable El-Khally, A Ziad MD Unavailable Unavailable El-Khally, A Ziad MD Unavailable Unavailable El-Khally, A Ziad MD Unavailable Unavailable El-Khally, A Ziad MD Unavailable Unavailable El-Khally, A Ziad MD Unavailable Unavailable El-Khally, A Ziad MD Unavailable Unavailable El-Khally, A Ziad MD Unavailable Unavailable El-Khally, A Ziad MD Unavailable Unavailable El-Khally, A Ziad MD Unavailable Unavailable El-Khally, A Ziad MD Unavailable Unavailable El-Khally, A Ziad MD Unavailable Unavailable El-Khally, A Ziad MD Unavailable Unavailable El-Khally, A Ziad MD Unavailable Unavailable El-Khally, A Ziad MD Unavailable Unavailable El-Khally, A Ziad MD Unavailable Unavailable El-Khally, A Ziad MD Unavailable Unavailable El-Khally, A Ziad MD Unavailable Unavailable El-Khally, A Ziad MD Unavailable Unavailable El-Khally, A Ziad MD Unavailable Unavailable El-Khally, A Ziad MD Unavailable Unavailable El-Khally, A Ziad MD Unavailable Unavailable El-Khally, A Ziad MD Unavailable Unavailable El-Khally, A Ziad MD Unavailable Unavailable El-Khally, A Ziad MD Unavailable Unavailable El-Khally, A Ziad MD Unavailable Unavailable El-Khally, A Ziad MD Unavailable Unavailable El-Khally, A Ziad MD Unavailable Unavailable Saundra, N Maikel ELECTRONICS HARDWARE DESIGN ENGINEER Unavailable Unavailable Saundra, N Maikel ELECTRONICS HARDWARE DESIGN ENGINEER Unavailable Unavailable [place], N Maikel ELECTRONICS HARDWARE DESIGN ENGINEER Unavailable Unavailable [place], N Maikel ELECTRONICS HARDWARE DESIGN ENGINEER Unavailable Unavailable Saundra, N Maikel ELECTRONICS HARDWARE DESIGN ENGINEER Unavailable Unavailable Saundra, N Maikel ELECTRONICS HARDWARE DESIGN ENGINEER Unavailable Unavailable Saund[place], N Maikel ELECTRONICS HARDWARE DESIGN ENGINEER Unavailable Unavailable [place], N Maikel ELECTRONICS HARDWARE DESIGN ENGINEER Unavailable Unavailable Saund[place], N Maikel ELECTRONICS HARDWARE DESIGN ENGINEER Unavailable Unavailable Saund[place], N Maikel ELECTRONICS HARDWARE DESIGN ENGINEER Unavailable Unavailable [place]und[place], N Maikel ELECTRONICS HARDWARE DESIGN ENGINEER Unavailable Unavailable [place], N Maikel ELECTRONICS HARDWARE DESIGN ENGINEER Unavailable Unavailable Saund[place], N Maikel ELECTRONICS HARDWARE DESIGN ENGINEER Unavailable Unavailable Saund[place], N Maikel ELECTRONICS HARDWARE DESIGN ENGINEER Unavailable Unavailable [place], N Maikel ELECTRONICS HARDWARE DESIGN ENGINEER Unavailable Unavailable Saund[place], N Maikel ELECTRONICS HARDWARE DESIGN ENGINEER Unavailable Unavailable Saundra, N Maikel ELECTRONICS HARDWARE DESIGN ENGINEER Unavailable Unavailable [place], N Maikel ELECTRONICS HARDWARE DESIGN ENGINEER Unavailable Unavailable [place]und[place], N Maikel ELECTRONICS HARDWARE DESIGN ENGINEER Unavailable Unavailable [place], N Makiel ELECTRONICS HARDWARE DESIGN ENGINEER Unavailable Unavailable [place], N Maikel ELECTRONICS HARDWARE DESIGN ENGINEER Unavailable Unavailable Saund[place], N Maikel ELECTRONICS HARDWARE DESIGN ENGINEER Unavailable Unavailable [place], N Maikel ELECTRONICS HARDWARE DESIGN ENGINEER Unavailable Unavailable Saundra, N Maikel ELECTRONICS HARDWARE DESIGN ENGINEER Unavailable Unavailable Saundra, N Maikel ELECTRONICS HARDWARE DESIGN ENGINEER Unavailable Unavailable Saund[place], N Maikel ELECTRONICS HARDWARE DESIGN ENGINEER Unavailable Unavailable Saund[place], N Maikel ELECTRONICS HARDWARE DESIGN ENGINEER Unavailable Unavailable Saundra, N Maikel ELECTRONICS HARDWARE DESIGN ENGINEER Unavailable Unavailable [place], N Maikel ELECTRONICS HARDWARE DESIGN ENGINEER Unavailable Unavailable Saundra, N Maikel ELECTRONICS HARDWARE DESIGN ENGINEER Unavailable Unavailable [place], N Maikel ELECTRONICS HARDWARE DESIGN ENGINEER Unavailable Unavailable MD RACHID GARZA Unavailable Unavailable Sun, Maikel DO Unavailable Unavailable Sun, Maikel DO Unavailable Unavailable Sun, Maikel DO Unavailable Unavailable Sun, Maikel DO Unavailable Unavailable Sun, Maikel DO Unavailable Unavailable Sun, Maikel DO Unavailable Unavailable Sun, Maikel DO Unavailable Unavailable Sun, Maikel DO Unavailable Unavailable Sun, Maikel DO Unavailable Unavailable Sun, Maikel DO Unavailable Unavailable Sun, Maikel DO Unavailable Unavailable Sun, Maikel DO Unavailable Unavailable Sun, Maikel DO Unavailable Unavailable Sun, Maikel DO Unavailable Unavailable Sun, Maikel DO Unavailable Unavailable Sun, Maikel DO Unavailable Unavailable Sun, Maikel DO Unavailable Unavailable Sun, Maikel DO Unavailable Unavailable Sun, Maikel DO Unavailable Unavailable Sun, Maikel DO Unavailable Unavailable Sun, Maikel DO Unavailable Unavailable Sun, Maikel DO Unavailable Unavailable Sun, Maikel DO Unavailable Unavailable Sun, Maikel DO Unavailable Unavailable Sun, Maikel DO Unavailable Unavailable Sun, Maikel DO Unavailable Unavailable Sun, Maikel DO Unavailable Unavailable Sun, Maikel DO Unavailable Unavailable Sun, Maikel DO Unavailable Unavailable Sun, Maikel DO Unavailable Unavailable Sun, Maikel DO Unavailable Unavailable Sun, Maikel DO Unavailable Unavailable Sun, Maikel DO Unavailable Unavailable Sun, Maikel DO Unavailable Unavailable Sun, Maikel DO Unavailable Unavailable Sun, Maikel DO Unavailable Unavailable Sun, Maikel DO Unavailable Unavailable Sun, Maikel DO Unavailable Unavailable Sun, Maikel DO Unavailable Unavailable Sun, Maikel DO Unavailable Unavailable Sun, Maikel DO Unavailable Unavailable Sun, Maikel DO Unavailable Unavailable Sun, Maikel DO Unavailable Unavailable Sun, Maikel DO Unavailable Unavailable Sun, Maikel DO Unavailable Unavailable Sun, Maikel DO Unavailable Unavailable Sun, Maikel DO Unavailable Unavailable Sun, Maikel DO Unavailable Unavailable Sun, Maikel DO Unavailable Unavailable Sun, Maikel DO Unavailable Unavailable Sun, Maikel DO Unavailable Unavailable Sun, Maikel DO Unavailable Unavailable Sun, Maikel DO Unavailable Unavailable Sun, Maikel DO Unavailable Unavailable Sun, Maikel DO Unavailable Unavailable Sun, Maikel DO Unavailable Unavailable Sun, Maikel DO Unavailable Unavailable Sun, Maikel DO Unavailable Unavailable Sun, Maikel DO Unavailable Unavailable Sun, Maikel DO Unavailable Unavailable Sun, Maikel DO Unavailable Unavailable Sun, Maikel DO Unavailable Unavailable Sun, Maikel DO Unavailable Unavailable Sun, Maikel DO Unavailable Unavailable Sylvia, V RU PA-C Unavailable Unavailable Sylvia, V RU PA-C Unavailable Unavailable Sylvia, V RU PA-C Unavailable Unavailable Perkins, V RU PA-C Unavailable Unavailable Sylvia, V RU PA-C Unavailable Unavailable Perkins, V RU PA-C Unavailable Unavailable Perkins, V RU PA-C Unavailable Unavailable Re-disclosure Warning The records that you are about to access may contain information from federally-assisted alcohol or drug abuse programs. If such information is present, then the following federally mandated warning applies: This information has been disclosed to you from records protected by federal confidentiality rules (42 CFR part 2). The federal rules prohibit you from making any further disclosure of this information unless further disclosure is expressly permitted by the written consent of the person to whom it pertains or as otherwise permitted by 42 CFR part 2. A general authorization for the release of medical or other information is NOT sufficient for this purpose. The Federal rules restrict any use of the information to criminally investigate or prosecute any alcohol or drug abuse patient.The records that you are about to access may contain highly sensitive health information, the redisclosure of which is protected by Article 27-F of the [facility] Public Health law. If you continue you may have access to information: Regarding HIV / AIDS; Provided by facilities licensed or operated by the [facility] Office of Mental Health; or Provided by the [facility] Office for People With Developmental Disabilities. If such information is present, then the following [facility] mandated warning applies: This information has been disclosed to you from confidential records which are protected by state law. State law prohibits you from making any further disclosure of this information without the specific written consent of the person to whom it pertains, or as otherwise permitted by law. Any unauthorized further disclosure in violation of state law may result in a fine or long-term sentence or both. A general authorization for the release of medical or other information is NOT sufficient authorization for further disc losure. Family History Family Member Name Family Member Gender Family Member Status Date o f Status Description Data Source(s) Unknown [facility] Problem [facility] Encounters Encounter Providers Location Date Indications Data Source(s ) Outpatient Attender: RU PIPERAGUEDA-SJP.AGUEDA 12:00:00 AM EST - 10/14/2020 11:03:48 AM EST [facility] Unknown [address] [facility] [id number] 09/16/2020 12:00:00 AM EST eCW1 ([facility]) (JANETH NP120) New Patient 120 Min [address] [place] [id number] 09/14/2020 12:00:00 AM EST eCW1 ([facility]) Outpatient Attender: Maikel Arguello NP SJPKishoreAGUEDA-SJP.AGUEDA 020 12:00:00 AM EST - 08/09/2020 10:39:57 AM EST [facility] Outpatient Attender: Aliya Fernando MDAdmitter: Aliya andre MD ES1-SJ.CVAU 08/03/2020 07:44:00 AM EST - 08/04/2020 07:00:00 PM EST [facility] Patient discharged. (WND STRTCH) Stretcher Required Patients [address] [id number] 07/13/2020 12:00:00 AM EST eCW1 ([facility]) Outpatient Attender: Maikel PIPERAGUEDA-SJP.AGUEDA 020 12:00:00 AM EST - 07/06/2020 02:02:35 PM EST [facility] Unknown [address] [facility] [id number] 07/05/2020 12:00:00 AM EST eCW1 ([facility]) (WND STRTCH) Stretcher Required Patients [address] [place] [address] 06/29/2020 12:00:00 AM EST eCW1 ([facility]) Unknown [address] [facility] [id number] 06/22/2020 12:00:00 AM EST eCW1 ([facility]) Unknown [address] [facility] [id number] 06/15/2020 12:00:00 AM EDT eCW1 ([facility]) Outpatient Attender: Aliya Fernando MDAdmitter: Aliya andre MD ES1-SJ.CVAU 06/11/2020 11:35:05 AM EDT [facility] Outpatient Attender: Maikel Arguello NP SJP.AGUEDA-SJP.AGUEDA 020 12:00:00 AM EDT - 06/08/2020 02:21:20 PM EDT [facility] (WND STRTCH) Stretcher Required Patients [address] [place] [address] 06/08/2020 12:00:00 AM EDT eCW1 ([facility]) (WND STRTCH) Stretcher Required Patients [address] [place] [address] 06/01/2020 12:00:00 AM EDT eCW1 ([facility]) (WND NP120) New Patient 120 Min [address] [place] [address] 05/25/2020 12:00:00 AM EDT eCW1 ([facility]) Outpatient Attender: Jany Hernandezang/[place]/Derian/R eindl 04/06/2020 10:45:00 AM EDT [facility] ([facility]) Outpatient Attender: Jany Benitez/[place]/Derian/R eindl 03/18/2020 11:45:00 AM EDT [facility] ([facility]) Outpatient Attender: EB MOSCOSO [facility] 02/18 01:15:00 PM EDT [facility] Out[facility] [address] [facility] [id number] 03/02/2020 12:00:00 AM EDT eCW1 ([facility]) Outpatient Attender: Maikel CHILDERSeferrer: Maikel Gamboa DO MOB-M OB.PAT 01/20/2020 12:58:44 PM EDT - 01/20/2020 02:20:57 PM EDT [facility] Outpatient Attender: MARCUS Benitez/[place]elaide/[place]/Reinadan 12/25/2019 11:20:00 AM EDT [facility] ([facility] ) Outpatient Referrer: MD RACHID GARZA 12/10/2019 05:29:00 AM EDT [facility] Outpatient Attender: Maikel Arguello NPReferrer: Maikel Arguello NP SJP.AGUEDA-SJP.AGUEDA 10/15/2019 07:02:01 AM EST - 10/15/2019 12:00:36 PM EST [facility] Outpatient Referrer: Maikel Arguello NP SJP.AGUEDA-SJP.AGUEDA 020 12:00:00 AM EST - 10/15/2019 11:14:35 AM EST [facility] Outpatient Attender: Jany Benitez/Adelaide/Derian/R eindl 09/23/2019 08:45:00 AM EST [facility] ([facility] Outpatient Referrer: MD RACHID GARZA 09/19/2019 02:57:00 PM EST [facility] Outpatient Referrer: MD RACHID GARZA 09/10/2019 02:54:00 PM EST [facility] Outpatient Attender: Maikel Arguello NP SJP.AGUEDA-SJP.AGUEDA 020 12:00:00 AM EST - 09/09/2019 02:14:19 PM EST [facility] Outpatient Attender: Jada Benitez/Adelaide/Derian/ Peter 09/04/2019 01:00:00 PM EST [facility] ([facility] Outpatient Attender: Maikel Gamboa DOAdmitter: Maikel Gamboa DO ES1-S J.EU 07/09/2019 11:37:24 AM EST [facility] Medications Medication Brand Name Start Date Product Form Dose Route Admi nistrative Instructions Pharmacy Instructions Status Indications Reaction Description Data Source(s) ezetimibe 10 MG Oral Tablet ezetimibe (ZETIA) 10 MG ta blet ezetimibe (ZETIA) 10 MG tablet 08/09/2020 12:00:00 AM EST 10 mg Oral active Take 1 tablet (10 mg total) by mouth daily [facility] Aspirin 81 MG Chewable Tablet aspirin chewable tablet 81 mg aspirin chewable tablet 81 mg 08/04/2020 09:00:00 AM EST 81 mg Oral activ e 81 mg, Oral, Daily, First dose on Sun08/04/20 at 0900, Post-op
D/C any prior aspirin order
[facility] Medication administered onsite clopidogrel 75 MG Oral Tablet clopidogrel (PLAVIX) tab let 75 mg clopidogrel (PLAVIX) tablet 75 mg 08/04/2020 09:00:00 AM EST 75 mg Oral active 75 mg, Oral, Daily, First dose on Sun08/04/20 at 0900, Post-op
May begin the same day
[facility] Medication administered onsite atorvastatin 40 MG Oral Tablet atorvastatin (LIPITOR) 40 MG tablet atorvastatin (LIPITOR) 40 MG tablet 08/04/2020 12:00:00 AM EST 40 mg Oral active Take 1 tablet (40 mg total) by mouth nightly [facility] Aspirin 81 MG Chewable Tablet aspirin 81 MG chewable t ablet aspirin 81 MG chewable tablet 08/04/2020 12:00:00 AM EST 81 mg Oral ac tive Chew 1 tablet (81 mg total) daily [facility] clopidogrel 75 MG Oral Tablet clopidogrel (PLAVIX) 75 MG tablet clopidogrel (PLAVIX) 75 MG tablet 08/04/2020 12:00:00 AM EST 75 mg Oral active Take 1 tablet (75 mg total) by mouth daily [facility] furosemide (LASIX) injection 40 mg [id number] 08/04/2020 12:00:00 AM EST 40 mg Intravenous completed 40 mg, I ntravenous, Once, Sun08/04/20 at 0000, For 1 dose [facility] Medication administered onsite Regular Insulin, Human 100 UNT/ML Inject able Solution [Humulin R] insulin regular (HumuLIN,NovoLIN) IV injection 10 Units insulin regular (HumuLIN,NovoLIN) IV injection 10 Units 08/04/2020 12:00:00 AM EST 10 U Intravenous completed 10 Units, Int ravenous, Once, Sun08/04/20 at 0000, For 1 dose [facility] Medication administered onsite dextrose 50 % solution 25-50 g [id number] 08/04/2020 12:00:00 AM ES T Intravenous completed 25-50 g, Intr avenous, Once, Sun08/04/20 at 0000, For 1 dose
For BS <150 give 50 g (2 amp D50 or 100 ml)For BS 150-300 give 25 g (1 amp D50 or 50 ml).For BS>300 hold D50.
[facility] Medication administered onsite dextrose 10 % infusion [id number] 08/04/2020 12:00:00 AM EST 75 mL/h Intravenous completed 75 mL/hr, Int ravenous, at 75 mL/hr, Continuous, Starting Sun08/04/20 at 0000, For 6 hours [facility] Medication administered onsite atorvastatin 40 MG Oral Tablet atorvastatin (LIPITOR) tablet 40 mg atorvastatin (LIPITOR) tablet 40 mg 08/03/2020 09:00:00 PM EST 40 mg Oral active 40 mg, Oral, Nightly, First dose on Sun08/03/20 at 2100 [facility] Medication administered onsite Insulin Lispro 100 UNT/ML Injectable Colette ution insulin lispro (HumaLOG) injection 1-2 Units insulin lispro (HumaLOG) injection 1-2 Units 0 05:00:00 PM EST Subcutaneous active 1-2 Units, Subcutaneous, MEALSS, First dose on Sun08/03/20 at 1700
1 units Nutritional and Correction Insulin ScaleBlood Glucose (mg/dl) <70 start hypoglycemiaprotocolGlucoseEats >=50% Eats <50%Eats Nothing (mg/dl) of meal of meal or NPO70- 1201 units 1 unit s 0 -7459 units 1 units 0 kvhro666- 2201 units 1 units 0 -8599 units 1 units 0 - 3202 units 1 units 1 [id number] units 1 units 1 [id number] units 1 units 1 units>420 call MD2 units 2 units 1 unitsTest glucose within 30 minutes of insulin administration.Administer insulin within 15 minutes (before or after) of the patient starting to eat.For patients that are NPO, use theNPO (correction) scale to cover POC glucose at 08:00, 12:00, 17:00.
[facility] Medication administered onsite normal saline flush 0.9 % injection 3 mL [id number] 08/03/2020 02:00:00 PM EST 3 mL Intravenous aborted 3 mL , Intravenous, PROTOCOL, First dose on Sun08/03/20 at 1400, Pre-op
flush per protocol, D/C Main IV fluid if appropriate
[facility] Medication administered onsite gabapentin 100 MG Oral Capsule gabapentin (NEURONTIN) capsule 100 mg gabapentin (NEURONTIN) capsule 100 mg 08/03/2020 02:00:00 PM EST 100 mg Oral active 100 mg, Oral, 2 times daily, First dose on Sun08/03/20 at 1400 [facility] Medication administered onsite pantoprazole 40 MG Delayed Release Oral Tablet pantoprazole (PROTONIX) EC tablet 40 mg pantoprazole (PROTONIX) EC tablet 40 mg 08/03/2020 02:00:[address] 40 mg Oral active Gastroesophageal Reflux Diseas e 40 mg, Oral, Daily, Indications: Gastroesophageal Reflux Disease, First dose on Sun08/03/20 at 1400 [facility] Gastroesophageal Reflux Disease Medication administered onsite Propranolol Hydrochloride 10 MG Oral Tablet propranolo l (INDERAL) tablet 5 mg propranolol (INDERAL) tablet 5 mg 08/03/2020 01:00:00 PM EST 5 mg Oral active 5 mg, Oral, 2 times daily, First dose on Sun08/03/20 at 1300 [facility] Medication administered onsite Nitroglycerin 0.4 MG Sublingual Tablet n itroglycerin (NITROSTAT) SL tablet 0.4 mg nitroglycerin (NITROSTAT) SL tablet 0.4 mg 08/03/2020 12:57:21 P M EST 0.4 mg Sublingual active 0.4 mg, S ublingual, Every 5 min PRN, chest pain, Starting Sun08/03/20 at 1257, Post-op
May administer every 5 minutes for 3 doses and call cardio lab MD.
[facility] Medication administered onsite Acetaminophen 325 MG Oral Tablet acetaminophen (TYLENO L) 325 MG tablet 650 mg acetaminophen (TYLENOL) 325 MG tablet 650 mg 08/03/2020 12:57:21 PM EST 650 mg Oral active 650 mg, Or al, Every 4 hours PRN, headaches, and non cardiac pain, Starting Sun08/03/20 at 1257, Post-op
"Maximum dose of acetaminophen is 4,000 mg from all sources in 24 hours."
[facility] Medication administered onsite Aspirin 325 MG Oral Tablet aspirin tablet 325 mg aspirin tab let 325 mg 08/03/2020 09:00:00 AM EST 325 mg Oral completed 325 mg, Oral, Once, Sun08/03/20 at 0900, For 1 dose, Pre-op
Give if scheduled for cardiac or peripheral angioplasty/stent or carotid stenting.Administer AM dose prior to procedure if NOT taken at home.Max of 1 dose per day.
[facility] Medication administered onsite Diphenhydramine Hydrochloride 50 MG Oral Capsule diphenhydrAMINE (BENADRYL) capsule 50 mg diphenhydrAMINE (BENADRYL) capsule 50 mg 08/03/2020 09 :00:00 AM EST 50 mg Oral completed 50 mg, Oral, manager call center, Sun08/03/20 at 0900, For 1 dose, Pre-op [facility] Medication administered onsite sodium chloride 0.9% (NS) infusion [id number] 08/03/2020 09:00:00 AM EST 100 mL/h Intravenous aborted at 100 m L/hr, 100 mL/hr, Intravenous, Continuous, Starting Sun08/03/20 at 0900, Pre-op
Start two hours prior to scheduled start time
[facility] Medication administered onsite normal saline flush 0.9 % injection 3 mL [id number] 08/03/2020 09:00:00 AM EST 3 mL Intravenous aborted 3 mL , Intravenous, Every 8 hours (scheduled), First dose on Sun08/03/20 at 0900, Pre-op
Rapid push positive pressure flushing shall be performed with a 10 cc normal saline syringe to check the PATENCY of a PIV site prior to any infusion therapy initiation unless resistance is met.
[facility] Medication administered onsite normal saline flush 0.9 % injection 3 mL [id number] 08/03/2020 09:00:00 AM EST 3 mL Intravenous aborted 3 mL , Intravenous, Every 8 hours (scheduled), First dose on Sun08/03/20 at 0900, Pre-op
Rapid push positive pressure flushing shall be performed with a 10 cc normal saline syringe to check the PATENCY of a PIV site prior to any infusion therapy initiation unless resistance is met.
[facility] Medication administered onsite clopidogrel 75 MG Oral Tablet clopidogrel (PLAVIX) 75 MG tablet clopidogrel (PLAVIX) 75 MG tablet 06/08/2020 12:00:00 AM EDT aborted Four tablets by mouth the night before the procedure [facility] Propranolol Hydrochloride 10 MG Oral Tablet propranolo l (INDERAL) 10 MG tablet propranolol (INDERAL) 10 MG tablet 05/28/2020 12:00:00 AM EDT 5 mg active 5 mg 2 (two) times a day [facility] b complex-vitamin c-folic acid (NEPHRO-BARBARA) 0.8 MG TABS [id number] 05/28/2020 12:00:00 AM EDT active TAKE ONE TABLET BY MOUTH @5PM [facility] sildenafil 50 MG Oral Tablet sildenafil (VIAGRA) 50 MG tablet sildenafil (VIAGRA) 50 MG tablet 05/13/2020 12:00:00 AM EDT active TAKE ONE TABLET BY MOUTH ONCE DAILY NEEDED [facility] Ensure High Protein 12/25/2019 12:00:00 AM EDT active [facility] ([facility]) Lactulose 667 MG/ML Oral Solution Lactulose 12/25/2019 12:00:00 AM EDT active [facility] Insurance Providers Payer name Policy type / Coverage type Policy ID Covered libertarian ID Covered libertarian's relationship to arteaga Policy Arteaga Plan Information MEDICARE [id number] SP [id number] [facility] [id number] SP [id number] BCBS EMPIRE [place] DIV [id number] SP [id number] INSURANCE COVID-19 COVID Velia C OVID MEDICARE [id number] Velia [id number] EXCELLUS BCBS [id number] Velia YLS [id number] [facility] [id number] SP [id number] MEDICARE C [id number] S [id number] [facility] O [id number] S [id number] INSURANCE COVID-19 [id number] EXCELLUS BCBS [id number] MEDICARE [id number] BCBS EMPIRE [place] DIV [id number] SP [id number] MEDICARE [id number] SP [id number] INSURANCE COVID-19 COVID Velia C OVID INSURANCE COVID-19 [id number] 2 [id number] INSURANCE COVID-19 COVID Velia C OVID MEDICARE [id number] SP [id number] [facility] [id number] SP [id number] BCBS EMPIRE [place] DIV [id number] SP [id number] MEDICARE [id number] SP [id number] A Medicare Dme Medigap Part B [id number] Self [id number] [facility] Medigap Part B [id number] Self [id number] Medicare Medicare Primary [id number] Self [id number] Medicare Dme Medigap Part B [id number] Self [id number] [facility] Medigap Part B [id number] Self [id number] Medicare Medicare Primary [id number] Self [id number] [place] [facility] Medicare Primary [id number] Self [id number] [facility] [place] Medigap Part B [id number] Self [id number] Medicare [facility] Medicare Primary [id number] Self [id number] BCBS EMPIRE [place] DIV [id number] SP [id number] [facility] [id number] SP [id number] [facility] [place] Medigap Part B [id number] Self [id number] [place] Primary [id number] Self [id number] Medicare Dme Medigap Part B [id number] Self [id number] [facility] Medigap Part B [id number] Self [id number] Medicare Medicare Primary [id number] Self 3 [id number] BCBS EMPIRE [place] DIV [id number] SP [id number] MEDICARE [id number] SP [id number] A Medicare Medigap Part B [id number] Self [id number] [facility] Medigap Part B [id number] Self [id number] Medicare Dme Medicare Primary [id number] Self [id number] [facility] [id number] SP [id number] ANSI-Commercial [id number] ANSI-Medicare Part B [id number] ANSI-Medicare Part B [id number] ANSI-Commercial [id number] ANSI-Medicare Part B [id number] ANSI-Commercial [id number] ANSI-Medicare Part B [id number] ANSI-Commercial [id number] ANSI-Commercial [id number] ANS-Medicare Part B [id number] ANSI-Medicare Part B [id number] ANSI-Commercial [id number] Medicare Dme Medigap Part B [id number] Self [id number] [facility] Part B [id number] Self [id number] Medicare Medicare Primary [id number] Self [id number] MEDICARE [id number] SP [id number] A [facility] [place] Medigap Part B [id number] Self [id number] [place] Primary [id number] Self [id number] [facility] [id number] SP [id number] BCBS EMPIRE [place] DIV [id number] SP [id number] Medicare Dme Medigap Part B [id number] Self 0 [id number] [facility] [id number] Self [id number] Medicare Medicare Primary [id number] Self [id number] MEDICARE [id number] S [id number] A BCBS EMPIRE [place] DIV [id number] [facility] [id number] SP [id number] MEDICARE [id number] SP [id number] A [facility] [place] Medigap Part B [id number] Self [id number] Medicare [facility] Medicare Primary [id number] Self [id number] Medicare Dme Medigap Part B [id number] Self [id number] [facility] Medigap Part B [id number] Self [id number] Medicare Medicare Primary [id number] Self 08 [id number] [facility] [id number] SP [id number] BCBS EMPIRE [place] DIV [id number] SP [id number] Medicare Dme Medigap Part B [id number] Self 0 [id number] [facility] Medigap Part B [id number] Self [id number] Medicare Medicare Primary [id number] Self 08 [id number] [facility] [id number] SP [id number] BCBS EMPIRE [place] DIV [id number] SP [id number] [facility] [id number] SP [id number] Medicare Dme Medigap Part B [id number] Self [id number] [facility] Medigap Part B [id number] Self [id number] Medicare Medicare Primary [id number] Self 08 [id number] [facility] Medigap Part B [id number] Self [id number] Medicare Medicare Primary [id number] Self 08 [id number] [facility] Medigap Part B [id number] Self [id number] Medicare Medicare Primary [id number] Self 08 [id number] [facility] Medigap Part B [id number] Self [id number] Medicare Medicare Primary [id number] Self [id number] [facility] Medigap Part B [id number] Self [id number] Medicare Medicare Primary [id number] Self 08 [id number] [facility] [id number] SP [id number] EMPIRE (STATE EMP) O [id number] S [id number] SELF PAY UNAVAILABLE UNAVAILA BLE MEDICARE [id number] Velia [id number] A BCBS EMPIRE [place] DIV [id number] SP [id number] [facility] P [id number] S [id number] Problems, Conditions, and Diagnoses Code Display Name Description Problem Type Effective Dates Data Source(s) L97.412 [id number] Non-pressure chronic ulcer of right heel and midfoot with fat layer exposed Problem 09/14/2020 12:00:00 AM EST eCW1 ([facility]) E87.5 Hyperkalemia Hyperkalemia [id number] 08/03/2020 12:00:00 A M [facility] 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, without long-term current use of insulin Type 2 diabetes mellitus with chronic kidney disease on chronic dialysis, without long-term current use of insulin [id number] 07/09/2020 12:00:00 AM EST [facility] I35.0 Nonrheumatic aortic valve stenosis Nonrheumatic aortic valve stenosis [id number] 07/09/2020 12:00:00 AM [facility] L73.9 [id number] Folliculitis Problem 05/25/2020 12:00:00 AM EDT eCW1 ([facility]) E11.628 [id number] Type 2 diabetes mellitus with other skin complications Problem 05/25/2020 12:00:00 AM EDT eCW1 ([facility]) 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 Erectile dys function due to diseases classified elsewhere Problem 03/02/2020 12:00:00 AM EDT eCW1 ([facility]) I35.0 Nonrheumatic aortic (valve) stenosis Nonrheumati c aortic (valve) stenosis Diagnosis 10/14/2020 09:34:57 AM EST [facility] K92.1 Melena Melena Diagnosis 10/14/2020 09:34:57 AM [facility] E78.5 Hyperlipidemia, unspecified Hyperlipidemia, unspecifie d Diagnosis 10/14/2020 09:34:57 AM [facility] Z95.1 Presence of aortocoronary bypass graft P resence of aortocoronary bypass graft Diagnosis 10/14/2020 09:34:57 AM [facility] I95.3 Hypotension of hemodialysis Hypotension of hemodialysi s Diagnosis 08/09/2020 09:30:15 AM EST [facility] Z99.2 Dependence on renal dialysis Dependence on renal dialy sis Diagnosis 08/03/2020 07:44:00 AM EST [facility] N18.6 End stage renal disease End stage renal disease Diagno sis 08/03/2020 07:44:00 AM EST [facility] E11.22 Type 2 diabetes mellitus with diabetic c hronic kidney disease Type 2 diabetes mellitus with diabetic c Diagnosis 08/03/2020 07:44:00 AM EST [facility] K31.7 Polyp of stomach and duodenum Polyp of stomach and duo denum Diagnosis 01/20/2020 12:58:44 PM EDT [facility] Surgeries/Procedures Procedure Description Date Indications Data Source(s) DEBRIDEMENT SUBCUTANEOUS TISSUE 20 SQ CM/< 09/03/2020 12:00:00 AM EST [facility] ([facility] DEBRIDEMENT NAIL ANY METHOD 6/> 09/03/2020 12:00:00 AM EST [facility] ([facility] DEBRIDEMENT SUBCUTANEOUS TISSUE 20 SQ CM/< 08/27/2020 12:00:00 AM EST [facility] ECG ROUTINE ECG W/LEAST 12 LDS W/I&R POCT AMB EKG Routine 08/09/2020 10:24 AM EST Coronary artery disease, s/p CABG 08/09/2020 03:24:00 PM EST Status post four vessel coronary artery bypass [facility] Status post four vessel coronary artery bypass GLUC BLD GLUC MNTR DEV CLEARED FDA SPEC HOME USE POCT GLUCOSE Routine 08/04/2020 4:57 PM EST 08/04/2020 09:57:00 PM EST [facility] GLUC BLD GLUC MNTR DEV CLEARED FDA SPEC HOME USE POCT GLUCOSE Routine 08/04/2020 8:48 AM EST 08/04/2020 01:48:00 PM EST [facility] KU2 PANEL KU2 PANEL STAT 08/04/2020 7:11 AM EST 08/04/2020 12:11:00 PM EST [facility] BLOOD COUNT COMPLETE AUTOMATED CBC STAT 08/04/2020 7:11 A M EST 08/04/2020 12:11:00 PM EST [facility] PHOSPHORUS INORGANIC PHOSPHORUS STAT 08/04/2020 7:11 AM EST 08/04/2020 12:11:00 PM [facility] Hemodialysis (procedure) HEMODIALYSIS INPATIENT TX Routine 08/04/2020 7:06 AM EST 08/04/2020 12:06:01 PM EST [facility] Hemodialysis (procedure) HEMODIALYSIS INPATIENT TX Routine 08/04/2020 7:06 AM EST 08/04/2020 12:06:01 PM [facility] GLUC BLD GLUC MNTR DEV CLEARED FDA SPEC HOME USE POCT GLUCOSE Routine 08/04/2020 6:40 AM EST 08/04/2020 11:40:00 AM [facility] ECG ROUTINE ECG W/LEAST 12 LDS TRCG ONLY W/O I&R ECG 12-LEAD Routine 08/04/2020 5:46 AM EST 08/04/2020 10:46:17 AM [facility] GLUC BLD GLUC MNTR DEV CLEARED FDA SPEC HOME USE POCT GLUCOSE Routine 08/04/2020 5:46 AM EST 08/04/2020 10:46:00 AM [facility] BASIC METABOLIC PANEL CALCIUM TOTAL BASIC METABOLIC PANEL Routi ne 08/04/2020 5:44 AM EST 08/04/2020 10:44:00 AM [facility] GLUC BLD GLUC MNTR DEV CLEARED FDA SPEC HOME USE POCT GLUCOSE Routine 08/04/2020 4:43 AM EST 08/04/2020 09:43:00 AM [facility] GLUC BLD GLUC MNTR DEV CLEARED FDA SPEC HOME USE POCT GLUCOSE Routine 08/04/2020 3:44 AM EST 08/04/2020 08:44:00 AM [facility] GLUC BLD GLUC MNTR DEV CLEARED FDA SPEC HOME USE POCT GLUCOSE Routine 08/04/2020 2:46 AM EST 08/04/2020 07:46:00 AM [facility] GLUC BLD GLUC MNTR DEV CLEARED FDA SPEC HOME USE POCT GLUCOSE Routine 08/04/2020 2:11 AM EST 08/04/2020 07:11:00 AM [facility] BASIC METABOLIC PANEL CALCIUM TOTAL BASIC METABOLIC PANEL Timed 08/04/2020 2:00 AM EST 08/04/2020 07:00:00 AM [facility] GLUC BLD GLUC MNTR DEV CLEARED FDA SPEC HOME USE POCT GLUCOSE Routine 08/04/2020 1:45 AM EST 08/04/2020 06:45:00 AM EST [facility] GLUC BLD GLUC MNTR DEV CLEARED FDA SPEC HOME USE POCT GLUCOSE Routine 08/04/2020 1:13 AM EST 08/04/2020 06:13:00 AM [facility] CMB CMB STAT 08/04/2020 12:38 AM EST 08/04/20 05:38:00 AM [facility] CREATINE KINASE MB FRACTION ONLY CKMB Timed 08/04/2020 12:38 AM EST 08/04/2020 05:38:00 AM [facility] GLUC BLD GLUC MNTR DEV CLEARED FDA SPEC HOME USE POCT GLUCOSE Routine 08/03/2020 11:19 PM EST 08/04/2020 04:19:00 AM [facility] ECG ROUTINE ECG W/LEAST 12 LDS TRCG ONLY W/O I&R ECG 12-LEAD STAT 08/03/2020 11:11 PM EST 08/04/2020 04:11:49 AM [facility] GLUC BLD GLUC MNTR DEV CLEARED FDA SPEC HOME USE POCT GLUCOSE Routine 08/03/2020 6:14 PM EST 08/03/2020 11:14:00 PM [facility] CMB CMB STAT 08/03/2020 4:07 PM EST 08/03/20 09:07:00 PM [facility] CREATINE KINASE MB FRACTION ONLY CKMB Routine 08/03/2020 4:07 PM EST 08/03/2020 09:07:00 PM [facility] BASIC METABOLIC PANEL CALCIUM TOTAL BASIC METABOLIC PANEL Routi ne 08/03/2020 4:07 PM EST 08/03/2020 09:07:00 PM EST [facility] GLUC BLD GLUC MNTR DEV CLEARED FDA SPEC HOME USE POCT GLUCOSE Routine 08/03/2020 1:58 PM EST 08/03/2020 06:58:00 PM EST [facility] CARDIAC CATHETERIZATION CARDIAC CATHETERIZATION Routine 08/03/2020 12:08 PM EST Status post four vessel coronary artery bypass Nonrheumatic aortic valve stenosis Hyperlipidemia, unspecified hyperlipidemia type Hemodialysis-associated hypotension Type 2 diabetes mellitus with chronic kidney disease on chronic dialysis, without long-term current use of insulin 08/03/2020 05:08:40 PM EST Type 2 diabetes mellitus with chronic kidney disease on chronic dialysis, without long- term current use of insulinHemodialysis-associated hypotensionHyperlipidemia, unspecified hyperlipidemia typeNonrheumatic aortic valve stenosisStatus post four vessel coronary artery bypass [facility] Type 2 diabetes mellitus with chronic ki dney disease on chronic dialysis, without long-term current use of insulin Hemodialysis-associated hypotension Hyperlipidemia, unspecified hyperlipidem ia type Nonrheumatic aortic valve stenosis Status post four vessel coronary artery bypass ECG ROUTINE ECG W/LEAST 12 LDS TRCG ONLY W/O I&R ECG 12-LEAD Routine 08/03/2020 8:17 AM EST 08/03/2020 01:17:16 PM EST S [facility] FINE NEEDLE ASPIRATION W/O IMAGING GUIDANCE 07/13/2020 12:00:00 AM EST eCW1 ([facility]) DEBRIDEMENT OPEN WOUND 20 SQ CM/< 07/08/2020 12:00:00 AM EST [facility] DEBRIDEMENT OPEN WOUND 20 SQ CM/< 07/01/2020 12:00:00 AM EST [facility] ([facility] FINE NEEDLE ASPIRATION W/O IMAGING GUIDANCE 06/29/2020 12:00:00 AM EST eCW1 ([facility]) DEBRIDEMENT OPEN WOUND 20 SQ CM/< 06/10/2020 12:00:00 AM EDT [facility] ([facility] FINE NEEDLE ASPIRATION W/O IMAGING GUIDANCE 06/08/2020 12:00:00 AM EDT eCW1 ([facility]) DEBRIDEMENT SUBCUTANEOUS TISSUE 20 SQ CM/< 06/01/2020 12:00:00 AM EDT [facility] ([facility] FINE NEEDLE ASPIRATION W/O IMAGING GUIDANCE 06/01/2020 12:00:00 AM EDT eCW1 ([facility]) FINE NEEDLE ASPIRATION W/O IMAGING GUIDANCE 05/25/2020 12:00:00 AM EDT eCW1 ([facility]) DEBRIDEMENT OPEN WOUND 20 SQ CM/< 05/18/2020 12:00:00 AM EDT [facility] ([facility] DEBRIDEMENT OPEN WOUND 20 SQ CM/< 05/11/2020 12:00:00 AM EDT [facility] ([facility] DEBRIDEMENT OPEN WOUND 20 SQ CM/< 04/27/2020 12:00:00 AM EDT [facility] ([facility] DEBRIDEMENT OPEN WOUND 20 SQ CM/< 04/08/2020 12:00:00 AM EDT [facility] ([facility] Dialysis Circuit W/ Transluminal Balloon Angioplasty, Periph eral 03/30/2020 12:00:00 AM EDT [facility] ([facility] Moderate Sedation Services; Same Phys Intl 15 Mins; PT >= 5 Years 03/30/2020 12:00:00 AM EDT [facility] ([facility] DEBRIDEMENT OPEN WOUND 20 SQ CM/< 03/23/2020 12:00:00 AM EDT [facility] ([facility] DEBRIDEMENT NAIL ANY METHOD 6/> 03/16/2020 12:00:00 AM EDT [facility] ([facility] DEBRIDEMENT OPEN WOUND 20 SQ CM/< 03/16/2020 12:00:00 AM EDT [facility] ([facility] ECG ROUTINE ECG W/LEAST 12 LDS TRCG ONLY W/O I&R ECG 12-LEAD Routine 01/20/2020 2:20 PM EDT Polyp of stomach and duodenum 01/20/2020 06:20:05 PM EDT More[place] yp of stomach and duodenum [facility] Polyp of stomach and duodenum BLOOD COUNT COMPLETE AUTOMATED CBC Routine 0 2:15 PM EDT Polyp of stomach and duodenum 01/20/2020 06:15:00 PM EDT [place] yp of stomach and duodenum [facility] Polyp of stomach and duodenum HEMOGLOBIN GLYCOSYLATED A1C HEMOGLOBIN A1C Routine 01/20/2020 2:15 PM EDT Polyp of stomach and duodenum 01/20/2020 06:15:00 PM EDT [place] yp of stomach and duodenum [facility] Polyp of stomach and duodenum BASIC METABOLIC PANEL CALCIUM TOTAL BASIC METABOLIC PANEL Routi ne 01/20/2020 2:15 PM EDT Polyp of stomach and duodenum 01/20/2020 06:15:00 PM EDT [place] yp of stomach and duodenum [facility] Polyp of stomach and duodenum Dialysis Circuit, Intro [place]/Cath W/ Diagnostic Angiograp hy 09/16/2019 12:00:00 AM EST [facility] ([facility] Dialysis Circuit Perm Vascular Embolization Or Occlusion, En dovas 09/16/2019 12:00:00 AM EST [facility] ([facility] Moderate Sedation Services; Same Phys Intl 15 Mins; PT >= 5 Years 09/16/2019 12:00:00 AM EST [facility] ([facility] Results ID Date Data Source [id number] 08/23/2020 03:52:00 PM EST [facility] Name Value Range Interpretation Code Description Data Ale rce(s) Supporting Document(s) SARS-CoV-2 (COVID 19) [facility] This lab was ordered by [facility] a nd reported by [facility]. ID Date Data Source [id number] 08/16/2020 12:03:00 PM EST [facility] Name Value Range Interpretation Code Description Data Ale rce(s) Supporting Document(s) SARS coronavirus 2 RNA [Presence] in Res piratory specimen by ROZINA with probe detection [facility] This lab was ordered by [facility] a nd reported by [facility]. ID Date Data Source [id number] 08/05/2020 03:30:53 PM EST [facility] INFORMATIONPatient MRN Name Date of Age Gend*PT [id number] PhulaciKalyani tucker 1950 70 years M HOPPT Location Admission Date/Time Visit ID Attending ProviderCV-10 08/03/20 0744 --- --- EPI ID CSN Admitting Provider [id number] Aliya Fernando MD([id number]) Attestation signed by Aliya Fernando MD at 08/05/2020 3:30 PMSignature: LUIS ALBERTO Barajasate: August 05, 2020Time: 3:30 PM Physician Discharge Summary Kalyani AlvahemantMRN: [id number] date: 08/03/2020Attending Physician: Wen Barajas Diagnosis: <principal problem not specified>Principle Procedures:1. Cardiac catheterization: 08/03/2020Interpretation [id number] man with coronary artery disease and moderate [facility] who has end-stage renal disease on hemodialysis and presents with shortnessof breath with mild exertion.1. Severe stenosis in the mid left circumflex which is not bypassed status postsuccessful drug-eluting stent placement.2. Severe stenosis in the posterolateral branch of the right coronary arterywhich is not bypassed post successful intervention with drug-eluting stentplacement.3. Patent sequential radial graft to the second diagonal and distal LAD.Severe diffuse disease in the apical LAD downstream from the anastomosis of thegraft status post balloon angioplasty. We were unable to advance a stent but weobtained fairly good result.4. Patent vein graft sequentially appended to the high diagonal and ramus.5. Low normal systolic function.6. Moderate aortic stenosis with a mean gradient of 38. This may beoverestimated because of the presence of fistula.7. Mild pulmonary hypertension with normal filling pressures.8. Starclose of the right femoral artery and Perclose of the right femoralvein. The patient will be continued with dual antiplatelet therapy for at least ayear. Follow-up of his aortic stenosis by echocardiography is recommended as anoutpatient. If it gets to be severe TAVR will be considered. No complications, estimated blood loss minimal.Indication for Admission: patient presented to [facility] for scheduled cardiaccatheterization.Hospital Course & Complications: Patient underwent cardiac catheterizationyesterday, patient was treated with ZHAO to the mid left circumflex andposterolateral branch of the right coronary artery, recommending continue withdual antiplatelet therapy for at least a year, see detailed report above.Patient has tolerated procedure well. Procedure site right femoral stable, nohematoma or drainage noted. Post cardiac cath, patient was noted to havepotassium level of 6.2, no EKG changes, he was treated with IV lasix 40 mg x 1,Insulin/D50% and the potassium was 5.5 this morning, Dr. Crain was consulted .Patient had hemodialysis with low K+ bath this morning and tolerated well.Patient was monitored on telemetry and remained in sinus rhythm. All vital signsstable, lab reviewed. Patient was ambulating without symptoms.Patient was seen and evaluated by Dr. Fernando and deemed appropriate fordischarge to home. Patient was in agreement. Patient is in stable condition,ambulating, no angina, vital signs stable. No EKG changes. All dischargeinstructions, activity limitations and medications were reviewed. All questionsanswered. Patient verbalized the understanding of the need for strictmedications and follow up compliance. Patient will be send home with DAPT (ASA,Plavix), Statin. Patient will be follow up with Dr. Womack in one weeks. Patientwill follow up with Dr. Munguia for his scheduled hemodialysis. Patient is tocontact our office with any discomfort or issues immediately.Past Medical History:Past Medical History:Diagnosis Date CABG 06/24/2006 Dr. Calhoun: Sequential radial artery graft to LAD and diagonal, sequentialSVG to ramus and OM Cardiac catheterization 06/21/2001 [facility]: EF 67%, two-vessel CAD Cardiac murmur CHF (congestive heart failure) Diabetes mellitus, type II Echocardiogram 09/2017 EF 65%, mild LVH, mild aortic stenosis, no other significant valvular disease,normal CVP, unable to estimate PA P Echocardiogram 10/15/2019 EF 60%, grade I diastolic dysfunction, moderate , mean gradient 28 mmHg, AVA1.2 cm2, mild AI, likely normal CVP, unable to estimate PAP End stage renal disease on dialysis M, W, F Dr Munguia Hyperlipidemia Hypertension Myocardial infarction 2000 Neuropathy bilateral feet Nuclear stress test, regadenoson 09/2017 EF 70%, small fixed inferior defect versus attenuation artifact Nuclear stress test, regadenoson 10/15/2019 EF 60-65% by visual inspection, normal perfusion with prominent attenuationartifact. Polyp of stomach and duodenum Sleep apnea did not tolerate CPAP TIA (transient ischemic attack) 2000Most Recent Labs:Cardiac: No results found for: TROPONINI, POCTROP, PROBNPCBC with Diff:Lab ResultsComponent Value Date WBC 3.4 (L) 08/04/2020 RBC 3.66 (L) 08/04/2020 HGB 10.3 (L) 08/04/2020 HCT 31.1 (L) 08/04/2020 MCV 85.0 08/04/2020 MCH 28.1 08/04/2020 MCHC 33.1 08/04/2020 RDW 15.4 (H) 08/04/2020 PLT 93 (L) 08/04/2020 MPV 8.0 08/04/2020 MONOPCT 10.90 09/10/2019CMP:Lab ResultsComponent Value Date NA 134 (L) 08/04/2020 K 5.5 (H) 08/04/2020 CL 95 (L) 08/04/2020 CO2 24 08/04/2020 ANIONGAP 15 08/04/2020 BUN 46 (H) 08/04/2020 CREATININE 8.60 (HH) 08/04/2020 BCR 5.3 (L) 08/04/2020 GLU 104 (H) 08/04/2020 CALCIUM 7.9 (L) 08/04/2020 PROT 8.4 (H) 09/10/2019 ALBUMIN 3.4 09/10/2019 GLOB 5.0 (H) 09/10/2019 ALKPHOS 181.0 (H) 09/10/2019 LABBILI 0.8 09/10/2019 AST 33.0 09/10/2019 ALT 28.0 09/10/2019 GFRAA 7 (L) 08/04/2020 GFRNONAA 6 (L) 08/04/2020HgbA1c:Lab ResultsComponent Value Date HGBA1C 8.1 (H) 01/20/2020Hyperlipidemia:Lab ResultsComponent Value Date CHOL 238.00 (H) 09/10/2019 TRIG 685.0 (>) 09/10/2019 HDL 23.00 (L) 09/10/2019Medications:Your medication listSTART taking these medications Instructions Last Dose Given Morning Afternoon Evening Bedtime As Neededaspirin 81 MG chewable tablet Chew 1 tablet (81 mg total) dailyatorvastatin 40 MG tabletCommonly known as: LIPITOR Take 1 tablet (40 mg total) by mouth nightlyCHANGE how you take these medications Instructions Last Dose Given Morning Afternoon Evening Bedtime As Neededclopidogrel 75 MG tabletCommonly known as: PLAVIXWhat changed: how much to take how to take this when to take this additional instructions Take 1 tablet (75 mg total) by mouth dailyCONTINUE taking these medications Instructions Last Dose Given Morning Afternoon Evening Bedtime As Neededb complex-vitamin c-folic acid 0.8 MG Tabs TAKE ONE TABLET BY MOUTH @5PMgabapentin 100 MG capsuleCommonly known as: NEURONTIN Take 100 mg by mouth 2 (two) times a dayglipiZIDE 5 MG 24 hr tabletCommonly known as: GLUCOTROL Take 5 mg by mouth 2 (two) times a dayGNP GINGKO BILOBA EXTRACT PO Take by mouthheparin (porcine) 1000 UNIT/ML injection Infuse 3,000 Units into a venous catheter every treatment at dialysis (SystemicBolus)heparin (porcine) 1000 UNIT/ML injection Infuse 1,000 Units/hr into a venous catheter every treatment at dialysis(Systemic Infusion Pump)pantoprazole 40 MG tabletCommonly known as: PROTONIX Take 40 mg by mouth 2 (two) times a dayPROBIOTIC PO Take by mouthpropranolol 10 MG tabletCommonly known as: INDERAL 5 mg 2 (two) times a daysevelamer 800 MG tabletCommonly known as: RENVELA Take 800 mg by mouth 3 (three) times a day with mealssildenafil 50 MG tabletCommonly known as: VIAGRA TAKE ONE TABLET BY MOUTH ONCE DAILY NEEDEDvitamin D (Ergocalciferol) 1.25 MG (62895 UT) Caps Take 1 capsule by mouth once a weekWhere to Get Your Medi cationsThese medications were sent to [facility] [address] [id number] aspirin 81 MG chewable tablet atorvastatin 40 MG tablet clopidogrel 75 MG tabletDischarge Exam:Vitals: Temp: [97.8 F-98.6 F] 97.8 FHeart Rate: [77-86] 81Resp: [16-18] 18BP: (90-113)/(51-67) 104/61Pleasant, comfortable, not in acute distress.Awake, alert, oriented times 3.Moves all extremities.HEENT: No recent change in vision or hearing.Lungs: Clear to auscultation bilaterally.Chest wall: no tendernessHeart: regular rate and rhythm, S1, S2 normal, no murmur, click, rub or gallopAbdomen: Soft, nontender, bowel sounds present.Extremities: No edema. Cardiac cath site right femoral, with dry dressing,dressing C/D/I, no hematoma noted, + pulsePulses: 2+ and symmetricSkin: No rash or lumps.Neuro: grossly normalLymph nodes: Cervical, supraclavicular, and axillary nodes normal.The remainder of the physical exam is noncontributory.Discharged Condition:stableDisposition: Home or Self CareFollow Up: Dr. Womack on 08/10/20 at 2 pmSignature: Tay Piper NPDate: August 04, 2020Time: 3:03 PM Name Value Range Interpretation Code Description Data Ale morenoe(s) Supporting Document(s) ID Date Data Source [id number] 08/04/2020 04:59:04 PM EST [facility] [place] [facility] Name Value Range Interpretation Code Description Data Ale rce(s) Supporting Document(s) POC NOVA GLU 76 mg/dL (70-99) [facility] [place] [facility] [place] [facility] ID Date Data Source [id number] 08/04/2020 10:51:10 AM EST [facility] HealthcarePATI NT INFORMATIONPatient MRN Name Date of Age Gend*PT [id number] Kalyani Tyson 1950 70 years M HOPPT Location Admission Date/Time Visit ID Attending ProviderHEMODIALYSIS 08/03/20 0744 --- Aliya Fernando MD([id number]) EPI ID CSN Admitting Provider [id number] Aliya Fernando MD([id number]) Attestation signed by Marcelo Crain MD at 08/04/2020 10:51 AMI saw and evaluated the patient and reviewed ELECTRONICS HARDWARE DESIGN ENGINEER's note. I agree with thehistory, physical and medical decision making with the following additions,exceptions, and/or observations: none.Signature: LUIS ALBERTO Jimenezate: August 04, 2020Time: 10:50 AM----- Nephr ology Consult NoteReason for consult: Provision for dialysis.Requesting physician: Dr. FernandoAssessment/Plan:Active Problems: Coronary artery disease, s/p CABG Hyperlipidemia Hemodialysis-associated hypotension Nonrheumatic aortic valve stenosis Type 2 diabetes mellitus with chronic kidney disease on chronic dialysis,without long-term current use of insulin HyperkalemiaESRD: Seen on HD. BP soft but stable. 1 dose of lasix given yesterday forhyperkalemia. Does not appear fluid overloaded[place]emia: Potassium is 5.3 today, which has decreased from 6.2 yesterdayafter insulin/D50 infusion. HD today with lower K+ bath. Should resolve withdialysis. Continue to monitor.Anemia: Hgb stable. Consider EPO outpatient if Hgb continues to drop.CAD: S/p cath with ZHAO and will need dual antiplatelet therapy for at least ayear.Patient seen and examined with Dr. Coynejective:Mr. Tyson is a 70 year old male followed by Dr. Mayorga for ESRD on HD [facility] with a pmhx CAD s/p CABG, hemodialysis associated hypotension,nonrheumatic aortic valve stenosis, HLD, and non-insulin dependent DM II [facility] cardiac cath. Patient had K+ level of 6.2yesterday evening. He offered no complaints at the time. ECG showed no peaked Twaves, no QRS widening, no flat p waves and overall similar to prior ECG. He wasgiven insulin/D50% and one dose of lasix IV 40mg to lower his potassium level.Review of Systems Constitutional: Denies fever, sweats, or chills. and Denies weakness. EENT Denies eye discomfort of vision changes, Denies nasal congestion ordischarge and Denies sore throat Respiratory Denies cough or congestion. and Denies shortness of breath. Cardiac Denies chest pain., Denies palpitations. and Denies racing heart. GI Denies abdominal pain., No nausea or vomiting. and No diarrhea orconstipation. Denies dysuria, urgency, or frequency., Denies hematuria. and Denies flankpain. MS Denies any recent mucle aches., No back pain. and No significant jointpain, stiffness, or swelling. Neuro Denies headaches., Denies lightheadedness. and Denies syncope or nearsyncope. Psych Denies depression. and Denies anxiety. Endo Denies frequent thirst or urination. Skin: Denies any rashes or pruritus Heme/Lymph Denies any swollen lymph glandsPMH:Past Medical History:Diagnosis Date CABG 06/24/2006 Dr. Calhoun: Sequential radial artery graft to LAD and diagonal, sequentialSVG to ramus and OM Cardiac catheterization 06/21/2001 [facility]: EF 67%, two-vessel CAD Cardiac murmur CHF (congestive heart failure) Diabetes mellitus, type II Echocardiogram 09/2017 EF 65%, mild LVH, mild aortic stenosis, no other significant valvular disease,normal CVP, unable to estimate PA P Echocardiogram 10/15/2019 EF 60%, grade I diastolic dysfunction, moderate , mean gradient 28 mmHg, AVA1.2 cm2, mild AI, likely normal CVP, unable to estimate PAP End stage renal disease on dialysis M, W, F Dr Munguia Hyperlipidemia Hypertension Myocardial infarction 2001 Neuropathy bilateral feet Nuclear stress test, regadenoson 09/2017 EF 70%, small fixed inferior defect versus attenuation artifact Nuclear stress test, regadenoson 10/15/2019 EF 60-65% by visual inspection, normal perfusion with prominent attenuationartifact. Polyp of stomach and duodenum Sleep apnea did not tolerate CPAP TIA (transient ischemic attack) 2001FH:Family HistoryProblem Relation Age of Onset Hypertension Mother Diabetes Mother Throat cancer FatherSH:Social HistorySocioeconomic History Marital status: Spouse name: Not on file Number of children: Not on file Years of education: Not on file Highest education level: Not on fileOccupational History Not on fileSocial Needs Financial resource strain: Not on file Food insecurity: Worry: Not on file Inability: Not on file Transportation needs: Medical: Not on file Non-medical: Not on fileTobacco Use Smoking status: Former Smoker Types: Cigarettes Smokeless tobacco: Former UserSubstance and Sexual Activity Alcohol use: Yes Comment: seldom Drug use: No Sexual activity: Not on fileLifestyle Physical activity: Days per week: Not on file Minutes per session: Not on file Stress: Not on fileRelationships Social connections: Talks on phone: Not on file Gets together: Not on file Attends adventism service: Not on file Active member of club or organization: Not on file Attends meetings of clubs or organizations: Not on file Relationsh ip status: Not on file Intimate partner violence: Fear of current or ex partner: Not on file Emotionally abused: Not on file Physically abused: Not on file Forced sexual activity: Not on fileOther Topics Concern Not on fileSocial History Narrative Not on fileMeds:No current facility-administered medications on file prior to encounter.Current Outpatient Medications on File Prior to EncounterMedication Sig b complex-vitamin c-folic acid (NEPHRO-BARBARA) 0.8 MG TABS TAKE ONE TABLET BYMOUTH @5PM clopidogrel (PLAVIX) 75 MG tablet Four tablets by mouth the night before theprocedure gabapentin (NEURONTIN) 100 MG capsule Take 100 mg by mouth 2 (two) times a day Ginkgo Biloba (GNP GINGKO BILOBA EXTRACT PO) Take by mouth glipiZIDE (GLUCOTROL) 5 MG 24 hr tablet Take 5 mg by mouth 2 (two) times a day Heparin Sodium, Porcine, (HEPARIN, PORCINE,) 1000 UNIT/ML injection Infuse3,000 Units into a venous catheter every treatment at dialysis (Systemic Bolus) Heparin Sodium, Porcine, (HEPARIN, PORCINE,) 1000 UNIT/ML injection Infuse1,000 Units/hr into a venous catheter every treatment at dialysis (SystemicInfusion Pump) pantoprazole (PROTONIX) 40 MG tablet Take 40 mg by mouth 2 (two) times a day Probiotic Product (PROBIOTIC PO) Take by mouth propranolol (INDERAL) 10 MG tablet 5 mg 2 (two) times a day sevelamer (RENVELA) 800 MG tablet Take 800 mg by mouth 3 (three) times a daywith meals sildenafil (VIAGRA) 50 MG tablet TAKE ONE TABLET BY MOUTH ONCE DAILY NEEDED vitamin D, Ergocalciferol, 1.25 MG (92638 UT) CAPS Take 1 capsule by mouthonce a weekAll: No Known Drug AllergiesObjective:Blood Pressure: BP: 104/61 Pulse: Heart Rate: 81Temperature: Temp: 97.8 F Respirations: Resp: 18Admission Weight: Weight: (!) 111 kg (244 lb 11.4 oz) O2 Saturation: SpO2: 94 %Today's Weight: Weight: (!) 111 kg (244 lb 11.4 oz) BMI: Body mass index is37.21 kg/m .Intake/Output Summary (Last 24 hours) at 08/04/2020 0706Last data filed at 08/04/2020 0017Gross per 24 hourIntake 452 mlOutput 0 mlNet 452 mlI/O last 3 completed shifts:In: 452 [P.O.:240; I.V.:212]Out: 0Gen: NADHEENT: PEERLANeck: No JVD presentLungs: clear bilaterally, no rhonchiHeart: RRRAbd: Soft, non-tender, non-distended, +BSExt: full ROM of all extremities, no edema present in LEVasc: R arm AV fistula +Neuro: alert and oriented x3Labs reviewed today at 7:06 AM :Lab ResultsComponent Value Date WBC 3.7 (L) 01/20/2020 HGB 12.0 (L) 01/20/2020 HCT 36.5 (L) 01/20/2020 PLT 79 (L) 01/20/2020Lab ResultsComponent Value Date NA 134 (L) 08/04/2020 K 5.1 08/04/2020 CL 95 (L) 08/04/2020 CO2 27 08/04/2020 BUN 44 (H) 08/04/2020 CREATININE 8.19 (HH) 08/04/2020 GLU 90 08/04/2020 CALCIUM 7.8 (L) 08/04/2020Lab ResultsComponent Value Date CREATININE 8.19 (HH) 08/04/2020 CREATININE 7.42 (HH) 08/03/2020 CREATININE 6.14 (HH) 01/20/2020Lab ResultsComponent Value Date BILIDIR 0.15 09/10/2019 ALKPHOS 181.0 (H) 09/10/2019 ALT 28.0 09/10/2019 AST 33.0 09/10/2019 ALBUMIN 3.4 09/10/2019 ALBUMIN 3.4 05/01/2018 PROT 8.4 (H) 09/10/2019Imaging:Cardiac cath: 1. Severe stenosis in the mid left circumflex which is notbypassed status post successful drug-eluting stent placement.2. Severe stenosis in the posterolateral branch of the right coronary arterywhich is not bypassed post successful intervention with drug- eluting stentplacement.3. Patent sequential radial graft to the second diagonal and distal LAD.Severe diffuse disease in the apical LAD downstream from the anastomosis of thegraft status post balloon angioplasty. We were unable to advance a stent but weobtained fairly good result.4. Patent vein graft sequentially appended to the high diagonal and ramus.5. Low normal systolic function.6. Moderate aortic stenosis with a mean gradient of 38. This may b eoverestimated because of the presence of fistula.7. Mild pulmonary hypertension with normal filling pressures.8. Starclose of the right femoral artery and Perclose of the right femoralvein. The patient will be continued with dual antiplatelet therapy for at least ayear. Follow-up of his aortic stenosis by echocardiography is recommended as anoutpatient. If it gets to be severe TAVR will be considered.Current Meds:Scheduled Meds: aspirin 81 mg Oral Daily atorvastatin 40 mg Oral Nightly clopidogrel 75 mg Oral Daily gabapentin 100 mg Oral BID insulin lispro 1-2 Units Subcutaneous With meals sliding scale pantoprazole 40 mg Oral Daily propranolol 5 mg Oral BIDContinuous Infusions: dextrose Stopped (08/04/20 0655)PRN Meds:.acetaminophen, atropine sulfate, nitroglycerinMaureen DKishore Boyd, GAME TECHNICIAN-C Name Value Range Interpretation Code Description Data Ale rce(s) Supporting Document(s) ID Date Data Source [id number] 08/04/2020 08:59:26 AM EST [facility] [place] [facility] Name Value Range Interpretation Code Description Data Ale rce(s) Supporting Document(s) POC NOVA GLU 93 mg/dL (70-99) [facility] [place] [facility] [place] [facility] ID Date Data Source [id number] 08/04/2020 09:54:54 AM EST [facility] [place] [facility] Name Value Range Interpretation Code Description Data Ale rce(s) Supporting Document(s) PHOSPHORUS 7.7 mg/dL (2.5-4.5) H [facility] [place] [facility] ID Date Data Source [id number] 08/04/2020 09:54:49 AM EST [facility] [place] [facility] Name Value Range Interpretation Code Description Data Ale rce(s) Supporting Document(s) SODIUM 134 mmol/L (136-145) L [facility] [place] [facility] POTASSIUM 5.5 mmol/L (3.6-5.2) H [facility] [place] [facility] CHLORIDE 95 mmol/L (100-108) L [facility] [place] [facility] CO2 24 mmol/L (22-31) [facility] [place] [facility] ANION GAP 15 mmol/L (7-16) [facility] [place] [facility] UREA NITROGEN 46 mg/dL (7-24) H [facility] [place] [facility] CREATININE 8.60 mg/dL (0.80-1.30) HH [facility] [place] [facility] CONSISTENT WITH PREVIOUS RESULTS BUN/CREAT RATIO 5.3 RATIO (10.0-20.0) L [facility] [place] [facility] GLUCOSE 104 mg/dL (70-99) H [facility] [place] [facility] CALCIUM 7.9 mg/dL (8.4-10.2) L [facility] [place] [facility] GFR 6 ml/min/1.73m2 (>59) L [facility] [place] [facility] GFR ( AMER) 7 ml/min/1.73m2 (>59) L [facility] GFR INTERPRETATION [facility] --NORMAL KIDNEY FUNCTION OR MILD DISEASE - GFR >OR= 60CHRONIC KIDNEY DISEASE - GFR 15 - 59RENAL FAILURE - GFR <15 Est. GFR calculation based on the MDRDstudy equation, which assumes a steadystate for creatinine. Est. GFR should notbe used for medication dosing. ID Date Data Source [id number] 08/04/2020 09:13:44 AM EST [facility] [place] [facility] Name Value Range Interpretation Code Description Data Ale rce(s) Supporting Document(s) WBC 3.4 10*3/uL (4.1-11.0) L [facility] [place] [facility] [place] RBC 3.66 10*6/uL (4.60-6.10) L [facility] [place] [facility] HGB 10.3 g/dL (13.5-18.0) L [facility] [place] [facility] HCT 31.1 % (41.0-53.0) L [facility] [place] [facility] [address] [place] [address] [address] [place] [address] MCV 85.0 fL (80.0-95.0) [facility] [place] [facility] MCH 28.1 pg (27.0-32.0) [facility] [place] [facility] MCHC 33.1 g/dL (32.0-36.0) [facility] [place] [facility] RDW 15.4 % (10.5-14.5) H [facility] [place] [facility] PLT 93 10*3/uL (150-450) L [facility] [place] [facility] MPV 8.0 fL (7.1-10.7) [facility] [place] [facility] ID Date Data Source [id number] 08/04/2020 06:41:54 AM EST [facility] [place] [facility] Name Value Range Interpretation Code Description Data Ale rce(s) Supporting Document(s) POC NOVA GLU 148 mg/dL (70-99) H [facility] [place] [facility] [place] [facility] ID Date Data Source [id number] 08/04/2020 06:34:17 AM EST [facility] Name Value Range Interpretation Code Description Data Ale rce(s) Supporting Document(s) EKG [facility] UOTGLs6aHsAALmIwz8PqIfWbYCJuQA8ozhj6Q5A1yRBkC4PczCTmk0awA9BxE2VoEZYyZUQQAN6PrZKi jb2 [file] [id number]/animal husbandry technician/W4YJwpgxhFq4AkN7AYRF21p3lnqe [file] LNTVL3M= ID Date Data Source [id number] 08/04/2020 06:33:33 AM EST [facility] Name Value Range Interpretation Code Description Data Ale rce(s) Supporting Document(s) EKG [facility] XOZWAp9vXbQRFxJxe9SnEgKbVGUnTN2mxhl6E6P8fCMgQ0PbjDQmt7tdM4VyX2ZrRILoBPEHSP0NeLId jb2 [file] he4aG1+pvoLdfqQ9z401El8pKDU2s+zk2v1+pjQ Qf4oa4frYoW/mWgniKTga5wJooysP9vaf6x9LGEHoc+I/JWDWquXbNRa/X9sjgwCpqXvunpHNO+boWSN GGgxgtOTjvcskUBOfHUW3rY2J0xEqpBEZapHYb8IxERFfPGJxPOQHxbVBjBfJpKWrNI3RaOmBllKmBE4 PnNaXajH3IQaZTM4EA6YaEHSf7SWF8KHCe6eCH7XJc G/KGvFBReEThTveU81+ocng8XZRIbE1AWc/IQHpQg1GHdJMpgTeLQ+kXjDWXgeNEz3HUYF3paydzxrAj RdtrvDl0yr+KAF4SZYXJUHMqNhKdX8eKqTEQ/MBSzbfUuVyI7kGBr4wkC2ksUwEj9MpF/Simba/B7g37uA [file] GfKfvVcx/5HfYMaiqP/3qdNhY1dzkfXd8iB+jose rafael/+ [file] MDAgbiAKMDAwMDAwMDUyMyAwMDAwMCBuIAowMDAwMD HyYzClTVMqVCCrYJ3kBoJnBSOtKMG1RJSrZIIvQWKsmfIBQHJpRTPoNJw8AFDdNBAgTDBzTEoqXTSrND AbBLY4IIIoPARtDA7mZwBcVODpUABhLMSwALMoQFYupzQQCYZvKOZmMAL9EERqJJCcXDViGKziIYMdTI YcMmh8RLYmYOCsME4hCpLkFXAiFWF7EQDfAJGmDTOw qqGUVXDhDWN8FaEzHATwUYBaRXJuBHziCTTgTBUiIuM0KFMqHHPxXD0tEjQbCNAyHRZ3MpVcWMEbPMGf ghVJOEPeIQLoDBA7ThKsUXOeLRThPVukQWGpHELdDWByWKI9WOV1WSYqIqSmUVcbHDNYEYbGL1XpflBf NyEIP5lbKz3gIhDrAXPHW8Thp1WcTMJvSKIVCy9+OlI0ILD5wXXxGlj6XyabLryyBSVMPb== ID Date Data Source [id number] 08/04/2020 05:48:24 AM EST [facility] Name Value Range Interpretation Code Description Data Ale rce(s) Supporting Document(s) POC NOVA GLU 144 mg/dL (70-99) H [facility] [place] [facility] [place] [facility] ID Date Data Source [id number] 08/04/2020 07:10:40 AM EST [facility] Name Value Range Interpretation Code Description Data Ale rce(s) Supporting Document(s) SODIUM 133 mmol/L (136-145) L [facility] [place] [facility] POTASSIUM 5.3 mmol/L (3.6-5.2) H [facility] [place] [facility] CHLORIDE 93 mmol/L (100-108) L [facility] [place] [facility] CO2 27 mmol/L (22-31) [facility] [place] [facility] ANION GAP 13 mmol/L (7-16) [facility] [place] [facility] UREA NITROGEN 48 mg/dL (7-24) H [facility] [place] [facility] CREATININE 8.42 mg/dL (0.80-1.30) HH [facility] [place] [facility] CONSISTENT WITH PREVIOUS RESULTS BUN/CREAT RATIO 5.7 RATIO (10.0-20.0) L [facility] [place] [facility] GLUCOSE 132 mg/dL (70-99) H [facility] [place] [facility] CALCIUM 8.2 mg/dL (8.4-10.2) L [facility] [place] [facility] GFR 6 ml/min/1.73m2 (>59) L [facility] [place] [facility] GFR ( AMER) 8 ml/min/1.73m2 (>59) L [facility] GFR INTERPRETATION [facility] --NORMAL KIDNEY FUNCTION OR MILD DISEASE - GFR >OR= 60CHRONIC KIDNEY DISEASE - GFR 15 - 59RENAL FAILURE - GFR <15 Est. GFR calculation based on the MDRDstudy equation, which assumes a steadystate for creatinine. Est. GFR should notbe used for medication dosing. ID Date Data Source [id number] 08/04/2020 04:44:56 AM EST [facility] [place] [facility] Name Value Range Interpretation Code Description Data Ale rce(s) Supporting Document(s) POC NOVA GLU 134 mg/dL (70-99) H [facility] [place] [facility] [place] [facility] ID Date Data Source [id number] 08/04/2020 03:46:23 AM EST [facility] [place] [facility] Name Value Range Interpretation Code Description Data Ale rce(s) Supporting Document(s) POC NOVA GLU 132 mg/dL (70-99) H [facility] [place] [facility] [place] [facility] ID Date Data Source [id number] 08/04/2020 02:48:19 AM EST [facility] [place] Name Value Range Interpretation Code Description Data Ale rce(s) Supporting Document(s) POC NOVA GLU 121 mg/dL (70-99) H [facility] [place] [facility] [place] [facility] ID Date Data Source [id number] 08/04/2020 02:13:21 AM EST [facility] [place] [facility] Name Value Range Interpretation Code Description Data Ale rce(s) Supporting Document(s) POC NOVA GLU 111 mg/dL (70-99) H [facility] [place] [facility] [place] [facility] ID Date Data Source [id number] 08/04/2020 03:18:01 AM EST [facility] [place] [facility] Name Value Range Interpretation Code Description Data Ale rce(s) Supporting Document(s) SODIUM 134 mmol/L (136-145) L [facility] [place] [facility] POTASSIUM 5.1 mmol/L (3.6-5.2) [facility] [place] [facility] CHLORIDE 95 mmol/L (100-108) L [facility] [place] [facility] CO2 27 mmol/L (22-31) [facility] [place] [facility] ANION GAP 12 mmol/L (7-16) [facility] [place] [facility] UREA NITROGEN 44 mg/dL (7-24) H [facility] [place] [facility] CREATININE 8.19 mg/dL (0.80-1.30) HH [facility] [place] [facility] CONSISTENT WITH PREVIOUS RESULTS BUN/CREAT RATIO 5.4 RATIO (10.0-20.0) L [facility] [place] [facility] GLUCOSE 90 mg/dL (70-99) [facility] [place] [facility] CALCIUM 7.8 mg/dL (8.4-10.2) L [facility] [place] [facility] GFR 6 ml/min/1.73m2 (>59) L [facility] [place] [facility] GFR ( AMER) 8 ml/min/1.73m2 (>59) L [facility] GFR INTERPRETATION Lab [facility] [place] --NORMAL KIDNEY FUNCTION OR MILD DISEASE - GFR >OR= 60CHRONIC KIDNEY DISEASE - GFR 15 - 59RENAL FAILURE - GFR <15 Est. GFR calculation based on the MDRDstudy equation, which assumes a steadystate for creatinine. Est. GFR should notbe used for medication dosing. ID Date Data Source [id number] 08/04/2020 01:46:50 AM EST [facility] [place] [facility] Name Value Range Interpretation Code Description Data Ale rce(s) Supporting Document(s) POC NOVA GLU 94 mg/dL (70-99) [facility] [place] [facility] [place] [facility] ID Date Data Source [id number] 08/04/2020 01:14:48 AM EST [facility] [place] [facility] Name Value Range Interpretation Code Description Data Ale rce(s) Supporting Document(s) POC NOVA GLU 147 mg/dL (70-99) H [facility] [place] [facility] [place] [facility] ID Date Data Source [id number] 08/04/2020 02:12:46 AM EST [facility] Name Value Range Interpretation Code Description Data Ale rce(s) Supporting Document(s) CKMB 2.3 ng/mL (0.0-5.0) [facility] CKMB RELATIVE INDEX 2.6 {index_val} (0.0-4.0) [facility] ID Date Data Source [id number] 08/04/2020 01:58:06 AM EST [facility] Name Value Range Interpretation Code Description Data Ale rce(s) Supporting Document(s) CK 90 U/L (39-308) [facility] ID Date Data Source [id number] 08/03/2020 11:20:45 PM EST [facility] Name Value Range Interpretation Code Description Data Ale rce(s) Supporting Document(s) POC NOVA GLU 172 mg/dL (70-99) H [facility] [place] [facility] ID Date Data Source [id number] 08/03/2020 06:15:08 PM EST [facility] Name Value Range Interpretation Code Description Data Ale rce(s) Supporting Document(s) POC NOVA GLU 109 mg/dL (70-99) H [facility] [place] [facility] ID Date Data Source [id number] 08/03/2020 10:39:34 PM EST [facility] Name Value Range Interpretation Code Description Data Ale rce(s) Supporting Document(s) SODIUM 133 mmol/L (136-145) L [facility] POTASSIUM 6.2 mmol/L (3.6-5.2) HH [facility] ALERTED CRITICAL RESULT [facility]([id number]) [place] [address] ON 08/03/20 [place] [address]229 [place] [address] CHLORIDE 98 mmol/L (100-108) L [facility] CO2 27 mmol/L (22-31) [facility] ANION GAP 8 mmol/L (7-16) [facility] UREA NITROGEN 37 mg/dL (7-24) H [facility] CREATININE 7.42 mg/dL (0.80-1.30) [facility] ALERTED CRITICAL RESULT [facility]([id number]) [place] [address] ON 08/03/20 [place] [address]229 [place] [address] BUN/CREAT RATIO 5.0 RATIO (10.0-20.0) L [facility] GLUCOSE 110 mg/dL (70-99) H [facility] CALCIUM 7.9 mg/dL (8.4-10.2) L [facility] GFR 7 ml/min/1.73m2 (>59) L [facility] GFR ( AMER) 9 ml/min/1.73m2 (>59) L [facility] GFR INTERPRETATION [facility] [place] --NORMAL KIDNEY FUNCTION OR MILD DISEASE - GFR >OR= 60CHRONIC KIDNEY DISEASE - GFR 15 - 59RENAL FAILURE - GFR <15 Est. GFR calculation based on the MDRDstudy equation, which assumes a steadystate for creatinine. Est. GFR should notbe used for medication dosing. ID Date Data Source [id number] 08/03/2020 10:29:27 PM EST [facility] [place] Name Value Range Interpretation Code Description Data Ale rce(s) Supporting Document(s) CKMB 1.9 ng/mL (0.0-5.0) [facility] [place] CKMB RELATIVE INDEX 1.1 {index_val} (0.0-4.0) [facility] ID Date Data Source [id number] 08/03/2020 10:08:53 PM EST [facility] Name Value Range Interpretation Code Description Data Ale rce(s) Supporting Document(s) CK 166 U/L (39-308) [facility] ID Date Data Source [id number] 08/03/2020 02:00:35 PM EST [facility] Name Value Range Interpretation Code Description Data Ale rce(s) Supporting Document(s) POC NOVA GLU 76 mg/dL (70-99) [facility] [place] [facility] ID Date Data Source [id number] 08/03/2020 01:36:35 PM EST [facility] Name Value Range Interpretation Code Description Data Ale rce(s) Supporting Document(s) &PDF [facility] YNZCJk1qScANTzEq74/QMEgqBILje1OyQQwdEVc2XZbqJRHoS7YmuHwxJYeNQaMIL7azYe5XAIYHRWJj 0b3 [file] DVVE6DxMPZDrOPRAWSUO6bICVKYTpdUGGAs9GMxWXL AAjKq+bAIehjHlUJVIHHkZCm5hZ6wWbhka3UOVJLNLcRNrdpAOdrf1//GqGzfIFjDV1eAPYNQsiTDQ3D sAAAAAAAAAAAAAAAAAAAAAAAAAAAAAAAAAAAAAAAAAAAAAAAAAAAAAAAAAAAAAAAAAAAAAAAAAAAAAAA AAAAAAAAAAAAAAAAAAAAAAAAAAAAAAAAAAAAAAAAAA AAAAAAAAAAAAAAAAAAAAAAAAAAAAAAAAAAAAAAAAAAAAAAAAAAAAAAAAAAAAAAAAAAAAAAAAAAAAAAAA AAAAAAAAAAAAAAAAAAAAAAAAAAAAAAAAAAAAAAAAAAAAAAAAAAAAAAAAAAAAAAAAAAAAAAAAAAAAAAAA AAAAAAAAAAAAAAAAAAAAAAAAAAAAAAAAAAAAAAAAAA AAAAAAAAAAAAAAAAAAAAAAAAAAAAAAAAAAAAAAAAAAAAAAAAAAAAAAAAAAAAAAAAAAAAAAAAAAAAAAAA TMUFLIKUGODXQTUPXLASJTZVRJDFQZbS4UvMBRBEonxqWicQHkUZ6DKzLpTL6wyz6BYqhxBBAtNqoVXv o6QMimKN0WxPHwJ1sLJnnfR6JdE8WpoLuaVI0BhAMg GP7SQO1eK6piHuDyZpu4g1TbwtRtqBTucfTgrGS6F6SabY2mE5ZmK9OaBEX6sGDvY5AzxU4LsVK2kLZ1 DAAaFPDbT3k2FJYoVK2TTC0qkNhjYYQ2KaSiNmraqLXcXHwfOkzveYQFEZSzKTIlBZr+Ec8Iv7RuUZHw UZxSfj2gG4YtW32l22AzEUzbnBd6MC6ZQlbilgXqCe nsZ69G2pNrhLK95xktKoXmx4W6xs1NGAnjoS4fspPM2EXvvTT7AQR/2oEMaOOOzbCSHW5YNZBvxfav30 4MX2HLFPDz8YGmU2baEiJ2VZ0fmw8IjX+CNiMPvFx0DpwGb45qy+/O6X554/41teg4ULuHGCWIGAPKIZ AAAAAAAAAAAAAA+oS3q7GTJPceg5Z6UiNrPLBpotFS MUmSZJggCNztxgKAHQR+6hr85sJetovbgmkn2i6WHDgZOkKuS4BZ8J4PDDi293I3I2l4heDgtHGNUHVI KvDSLUNo9Zu7ZOTY/DL4noIW5D+5JnjkKmylA4L42nUL7sg6XuQWB6J8oTnqt2PrdDH4Fpv6ysYBpjQs WPjZP+2KBEl6DJfYP9sipJWT3/pvGeJgdvB9iwk3QV hSlijWyV9U/LsemCq4ERgaJhfxDtU4EOpB8/MMI3YQWDaOXdm/+7g1KV7qlm4yyjSxZYXsr0Y6B9p3pZ 9yiwp0aA/3RjrsV1PiJEcyUe3TouU008ThTRLa4i+Jdcw8fIh7sv8o26fUga2tEi5Vc8sXSmt7dbUkcB 8rP/cwgaZDrpdL8K8P6iks1c/n+cSxprYW7apVUf7P 07zipGKaiwkIqxlp/gJxguT+fQVBGh9yJ+421ANPccg8zq0WFU6obrSH1o+8/MADD6+animal husbandry technician/bYY49//fH6 [file] EBBsQWe6ATkqYZTDEp1S ID Date Data Source [id number] 08/03/2020 08:47:43 AM EST [facility] Name Value Range Interpretation Code Description Data Ale rce(s) Supporting Document(s) EKG [facility] IFSNNq0jTtXIHdHvl1FqMuYlQDFxSF6bwnb6R6I2sTBzK5FhhRNps1wkG5UxR6KfQVWfCHQTEP6JsQKm jb2 [file] S6SUbvsC+qc4lTGzRHdzGayUGc0jD8LKYm6Oi2wIwd1Y/Juárez/bbyOpqjHJvkjXIHrt8rOH6mk5NBqQGXH [file] GPf4v/bone drier/pfess9/K/vbSN53P7sO/2BU8qBLzn8LMEXe9P2jH4wluRTOUu84PQF+lPjor0hd9qgdhKj [file] Settlement Processor+JpCu2fOs/s5RD2QxjLemvx5iZg4st0CkUpK4L+k [file] 3P/3611RxQl4464Tlo38iuvc17aOdr9R432R7v10/15TOk6jrcyj+vPjM1uZ/vn357/w7XT9+TuThy4q /R75paWlateJcl4el13LXwB/k6gg5f0R8Iqksdy5wJcCePnp/ul4f/e//LHyf/Rl6waoO05l0Omer8e7 foFNT+9vMj1/F4HF4//BEzpDxsg6nB/0d66RfYQq// +Pd7Nxw/udmiijj49Ng7BXgpmQo6kF+61HhBT0S+fP/+3f9+/HYx5XKZz0ECi4505zJ87f+/nmbMDxe4 7YwBrkPyz185+J/3S1g+/FY1HGmgc4dRx8pgZP8tkR9Qa/38/zA54JckJXDRjxm5Jd5xjkTgjOf2jpzi y71w749g5n9iKO2/0Ex5pBs/T2S151KQLQ2ct6AkAT UhRbTtCJ9jpsquZRJjXA1nark4X5WwhBlrHFpWRJRgLt2fjPAiYW8RPAN9GZsdBHVsKABuM8OdzV3gK5 9uaBCaKfEiNPZUMV5WuvQ5INH1RVZ3LHMiBzFjGRRrRW04LMEuAPRJBu4jxfFnWkbWYnKhZK8cwgf0V0 R7lFOqP710oEuyxxRaFO6Eo6RznPGnHB1VcTFoxRSj YYCnMXPrA7bda0RtYErnDKJBHh7ipxEoPncBLyNsXO6xmmo9L9H9gVlmvqYgYKGNSRrtVcdoRC1jlPnu dqpaQ4MviAPdDWJtA5InZZCwf67NLVRsGFjILdYeDqJcJoD9CKm0VtewZyIeFBVjFSPdRUVyRO3BiEAf OCRbFMZTWDkkSlxfXYOwbI0klDRVx4JjJQ2INfIHVx ihWd6YCNUELCGyOGP1GHRpFBbsY8C4LuvsE0LnJV3IS9KdDYAlFXXQIYRwcfJrTB9XhnPrnG4zHJlNUG VCYSoBENivExS9u00empWHOCAwSCFyDWewLRIvVRAkMJHqUBClMNEcAUDjAMMdBT2DT8VfLTKcSNDAQN Q6u6CvHZLhhngleplrHq8vycYyTog+NbdaDXMwe0Sy GEooV3G9fXUsM1VaZ8TvAL9QcBKzDHnvZVIdVBHyMKXdI459vuJjKK4+YY7xg8NdNjiaQDKYUGWzANYr WCAeBAI5IyAcGHMvRHZfSVJgXzT2HcPiWdVMXVLmBWA0LqKjONFeBEIlDXQqXGoyTRSgAVBqZsfyPHJc ECKpKU0nWlRwWUUyUER9JSvwGZWgYHHsrcVTGRXaCL ScUIQaXBK1RIHcINYiFAnfTEDvYDPwRSP3WPFtMVRkNH1jNdZvFYWxDXUwFfeoXHDqWVCwvxBQNXDrCN MfWTU5OdVpDHVlUUPhSYfxRKFsNWCyCxt7TIFgYQYdTH2oQhRtPYUmJGF1DCbqYCGzSKLjkoPILWTiJY AwMDUyMyAwMDAwMCBuIAowMDAwMDAwNjQxIDAwMDAw VC7iGrRsWXQaCAY0KJUkJLScBBUmulMTBUXhMXRcZOy1OBSrXBKiRJFyOMkkOZUjHFIoKAQ9DNAyHQOa BT3aRyHcFQGkBMGlZMNhYEVwSCXlnnZTNARsQCGqYTD1VYJdJKSsNDCyUQqvXKDvNSZeLqe3MMJgOCLo AG2iErVuUSFjVIC8KSKnKCMbXYVeucDUDJCjWMK1Hf Z8LENyJLEwRSAgXVioTPHsAINfUvC7HCLjVQUwJP7aOgQcRDQdSUY3XcHyYKPwEEFyivDVTPJoXGMgSR P3DxHzJCCrFVHtHYeySNRcBKKkUCWyPDD8IWY5POExKsHxXZdyISPGFPmVO4CyipBxZwAJO9gvSa1pLq EqBTYFK1Mhj3JcKULdGLEWKo2+WrL0YLE3sVDrQqk5BwS8UNeqKDXHEk== ID Date Data Source [id number] 07/29/2020 12:00:00 AM EST [facility] Name Value Range Interpretation Code Description Data Ale rce(s) Supporting Document(s) SARS coronavirus 2 RNA [Presence] in Res piratory specimen by ROZINA with probe detection [facility] This lab was ordered by [facility] and reported by [facility]. ID Date Data Source [id number] 07/23/2020 10:19:00 AM EST [facility] ([facility], ) Name Value Range Interpretation Code Description Data Ale rce(s) Supporting Document(s) Qjkqh-9-Ibwcvhksmfy [Mass/volume] in Serum or Plasma 3.8 ng/mL Normal (applies to non-numeric results) [facility] ([facility], ) THE AFP ASSAY IS PERFORMED ON THE ConjuGonAUR BY CHEMILUMINESCENCE AND SHOULD NOT BE COMPARED INTERCHANGEABLY WITH OTHER METHODS. IT SHOULD NOT BE USED ALONE A SCREENING TEST OR DIAGNOSIS FOR THE PRESENCE OR ABSENCE OF MALIGNANT DISEASE. THESE RESULTS ARE NOT INTERPRETABLE IN FEMALES. PREDICTIONS OF DISEASE RECURRENCE SHOULD NOT BE BASED SOLELY ON VALUES OBTAINED FROM SERIAL PATIENT SERUM VALUES. ID Date Data Source [id number] 07/23/2020 10:19:00 AM EST [facility] ([facility], ) Name Value Range Interpretation Code Description Data Ale rce(s) Supporting Document(s) Ast/Sgot 32 U/L 7-37 Normal (applies to non-numeric resul ts) [facility] ([facility], ) Alt/SGPT 27 U/L 12-78 Normal (applies to non-numeric resul ts) [facility] ([facility], ) Bilirubin,Total 0.8 mg/dL 0.2-1.0 Normal (applies to non-numeric results) [facility] ([facility], ) Bilirubin,Direct 0.2 mg/dL 0.0-0.2 Normal (applies to non-numeric results) [facility] ([facility]) Alkaline Phosphatase 137 U/L 45-117 Above high normal [facility] ([facility]) Albumin/Globulin Ratio 0.6 Normal (applies to non-n umeric results) [facility] ([facility]) Total Protein 7.9 GM/DL 6.4-8.2 Normal (applies to non-numeric re sults) [facility] ([facility]) Albumin 3.1 GM/DL 3.2-5.2 Below low normal [facility] ( [facility]) ID Date Data Source [id number] 01/20/2020 03:08:00 PM EDT [facility] INFORMATIONPatient MRN Name Date of Age Gend*PT [id number] Kalyani Tyson 1950 70 years M OPPT Location Admission Date/Time Visit ID Attending Provider --- --- --- Maikel Gamboa DO([id number]) EPI ID CSN Admitting Provider [id number] ---OUTPATIENT / OBSERVATIONAL SURGICAL OR INVASIVE PROCEDUREName: Kalyani Tyson : 1950 Sex: male Care [facility] Physician: Dr. Gamboa.HISTORY OF PRESENT ILLNESS: 70 years old white male who underwent colonoscopyand endoscopy approximately six or eight months ago. He was told he had a polypat that time and was advised further work-up. He denies weight loss, nausea,vomiting, diarrhea and constipation. He now presents for ultrasound uppergastrointestinal tract endosco pic on 01/29/2020.PAST MEDICAL HISTORY:Past Medical History:Diagnosis Date CABG 06/24/2006 Dr. Calhoun: Sequential radial artery graft to LAD and diagonal, sequentialSVG to ramus and OM Cardiac catheterization 06/21/2001 [facility]: EF 67%, two-vessel CAD Cardiac murmur CHF (congestive heart failure) Diabetes mellitus, type II Echocardiogram 09/2017 EF 65%, mild LVH, mild aortic stenosis, no other significant valvular disease,normal CVP, unable to estimate PA P Echocardiogram 10/15/2019 EF 60%, grade I diastolic dysfunction, moderate , mean gradient 28 mmHg, AVA1.2 cm2, mild AI, likely normal CVP, unable to estimate PAP End stage renal disease on dialysis M, W, F Dr Munguia Hyperlipidemia Hypertension Myocardial infarction 2000 Neuropathy bilateral feet Polyp of stomach and duodenum Regadenoson nuclear stress test 09/2017 EF 70%, small fixed inferior defect versus attenuation artifact Regadenoson nuclear stress test 10/15/2019 EF 60-65% by visual inspection, normal perfusion with prominent attenuationartifact. Sleep apnea did not tolerate CPAP TIA (transient ischemic attack) 2000PAST SURGICAL HISTORY:Past Surgical History:Procedure Laterality Date APPENDECTOMY AV FISTULA PLACEMENT Right 06/26/2015 Procedure: INSERT ARTERIAL VENOUS FISTULA UPPER EXTREMITY RIGHT ; Surgeon: Makayla Krishnan MD; [facility]; Service: Vascular; Laterality:Right; CATARACT EXTRACTION, BILATERAL CORONARY ARTERY BYPASS GRAFT KNEE SURGERYALLERGIES: No Known Drug AllergiesMEDICATIONS:Prior to Admission medicationsMedication Sig Start Date End Date Taking? Authorizing ProviderB Owfcfud-G-Wvqoo Acid (NEPHRO-BARBARA PO) Take 1 tablet by mouth dailyHistorical Provider, gabapentin (NEURONTIN) 100 MG capsule Take 100 mg by mouth 2 (two) times a dayHistorical Provider, Ginkgo Biloba (GNP GINGKO BILOBA EXTRACT PO) Take by mouth HistoricalProviderMDglipiZIDE (GLUCOTROL) 5 MG 24 hr tablet Take 5 mg by mouth 2 (two) times a dayHistorical Provider, MDpantoprazole (PROTONIX) 40 MG tablet Take 40 mg by mouth 2 (two) times a dayHistorical Provider, MDProbiotic Product (PROBIOTIC PO) Take by mouth Historical Provider, Jakevelamer (RENVELA) 800 MG tablet Take 800 mg by mouth 3 (three) times a daywith meals Historical Provider, vitamin D, Ergocalciferol, 1.25 MG (43083 UT) CAPS Take 1 capsule by mouth oncea week Historical Provider, Bonitaspirin 81 MG chewable tablet Chew 81 mg daily 01/20/20 Historical Provider, Bonitatorvastatin (LIPITOR) 20 MG tablet Take 20 mg by mouth daily 01/20/20Historical Provider, ISABELA Brdwxna-N-Xmgqf Acid (CHE-BARBARA PO) daily 09/25/17 01/20/20 Historical Provider,VAISHALIalcium Acetate, Phos Binder, (PHOSLO) 667 MG CAPS 3 (three) times a day Historical Provider, VAISHALIholecalciferol (VITAMIN D3) 1.25 MG (40999 UT) CAPS once a week 09/25/17 01/20/20Historical Provider, MDMultiple Vitamins-Minerals (CENTRUM ADULTS PO) Take 1 tablet by mouth daily01/20/20 Historical Provider, MDpantoprazole (PROTONIX) 40 MG tablet Take 40 mg by mouth 2 (two) times a day09/25/17 01/20/20 Historical Provider, MDprednisoLONE acetate (PRED FORTE) 1 % ophthalmic suspension As directed Historical Provider, MDpropranolol (INDERAL) 10 MG tablet Take 10 mg by mouth 2 (two) times a day01/20/20 Historical Provider, MDSocial HistoryTobacco Use Smoking status: Never Smoker Smokeless tobacco: Former UserSubstance Use Topics Alcohol use: No Drug use: NoFamily HistoryProblem Relation Age of Onset Hypertension Mother Diabetes Mother Throat cancer FatherREVIEW OF SYSTEMS:Respiratory: Occasional productive cough-clear sputum. Denies any shortness ofbreath, yellow sputum production or wheezing.Cardiovascular: Denies any chest pain, pressure or tightness. Denies anyparoxysmal nocturnal dyspnea or orthopnea.GI: Denies nausea, vomiting, diarrhea, constipation or melena.Neurologic: Reports bilateral foot numbness tingling. Reports imbalance onuneven surfaces. Denies any tremors or syncope.Vascular: Reports intermittent bilateral lower extremity edema. Deniesclaudication.PHYSICAL EXAM:GENERAL: He is a 70 years old, pleasant white male, in no acute distress at timeof examination. Vitals on arrival to the office are BP 117/64 (BP Location: Leftupper arm, Patient Position: Sitting) | Pulse 92 | Ht 1.727 m (5' 8") | Wt(!) 111.1 kg (245 lb) | SpO2 99% | BMI 37.25 kg/m Body mass index is 37.25kg/m ..Skin is pink, warm, and dry.NECK: He has a grade 1 airway. Neck is supple, midline, without cervicaladenopathy. No thyromegaly.MENTAL / NEUROLOGICAL STATUS: [id number]: Clear to auscultation. No wheezes, rhonchi or crackles.HEART: Rate rhythm regular. S1, S2. 3/6 murmur. No rub or valdez p.ABDOMEN: Bowel sounds positive times four. Soft, non tender. No reboundtenderness. No hepatosplenomegaly. Negative CVAT.EXTREMITIES: Pulses are symmetrical. +1 edema. Right arm fistula with thrill.Anesthesia complications: NoneCSHA Frailty Scale :: --Stop Bang Questionnaire - Total Score:ASSESSMENT: Primary Diagnosis/Indication: Polyp of stomach and duodenum.PLAN: Procedure: Ultrasound upper gastrointestinal tract endoscopic.01/20/2020 3:00 PMDamaso Murphy document or parts of this document, were dictated using Solid Sound software. A reasonable attempt at proofreading has beenmade to minimize errors. Please call with any questions or corrections.* Name Value Range Interpretation Code Description Data Ale rce(s) Supporting Document(s) ID Date Data Source [id number] 01/20/2020 02:39:03 PM EDT [facility] Name Value Range Interpretation Code Description Data Ale rce(s) Supporting Document(s) EKG [facility] FFMCQo9fAdTQOzMgr5OvTsKzDGEhPP9ndqo8W0M3nKQtX2BttAYcm7yuF6InT7FoGWUvBADNBB7NnIUk jb2 [file] Xz8ZP//9+sarbjit+H/++q9/++t/+dv/8aeW58/f/u+//tvf/tcuv4Z5g2/Mp3z+92//+lzeq58NH//8889J 9vnz7z/+/Xrf531BLGJ+NRGflZyjxTf70lng76hZZh PgfryNrnazfs9RvXEOVQTerBUAPGftzTRXuvphspjJEL+IynAad2N1oCgximhSRD+DpkGdq1M8eNrvcv qVXK+PzrHzy6t14AptbwpHSF+OvlKmb5l03ZvwqoyHUN+CmsUkt9o51IwatbpPPQ+MdqDur2E9fOpfiv q1XK+TgzTqs3K2tRasxqe4RN+NnvTby8Q7tZutbip4 XK+CngEea3804Nmibig9KF+rYRpSQe51lgxAqIknO3y8gn9RWX0AgseKkJey64G9Fo2VIY1FbjiRtnmD WaXylLVygAtG3Xxa33y3iftHtCDovHuC3Buz15y6sijLsMXjkRhC4Hkg3/rc0NKawC6T5Ja8Cgi3Jony C/KqmF3Q3Ew8Ptm1RmrxZ/LrlP8N3Fk6Vlq6Fj+zF6 evXK+Jch3vl7800NepxBpzNG+Qhy5pt6447DdjyVbiSK+Hyu7mo1721d38VF8VLlZmo9f3+KikE02Po2 fs/SO9ph0e43mH9FN8Fu+helicopter officer+iBqagEC34zjOZd+owt85GoCnqGuXqhXd1Gay8QrEPxhmdlCHNyrpOko [file] AB4Uq7rVl6iuvDW0iH7wceL0sdoCkmb+iD38Tmf/animal husbandry technician [file] AwMDUyMyAwMDAwMCBuIAowMDAwMDAwNjQxIDAwMDAw QT5gCjWfWVKwPRE2TZUeERMpQTKpbkYJBYQyGJKlDQl0MQRmEGQnZENsOTzpXEWxTWLwFGH2IAHhDLZc HY1nFpHcRSNmUISjDJOfQKMwJVGtupTQGFRlUOFuKVM0EGHcMSHsOLCtZOdjEWBsAAZlGyw7XPElLYBp JY7eDoPkVVIcHYS7XZUkVWDsUKKnnuTLUPOyUML1BX fvPPXrOBTiHNNwFFnsMLCjFYAdAjX1JBMzUPQbDD1bEmCfTYYgNIS2MxOvMHWoRIUzocFULNGeFLLcQG Z2YhSaEVLiZUBsIUqaGDKpUQNhZEZaNSN8PIC8QRWhMdMoSYfqFXOXLMmXQ5MtnaRbJnZUZ0cdBu2vJk OtIPUTZ8Hku8HmZVKdHJBTEs2+EuT8NPQ6eTCsUui8TCR2IUpkLSASYo== ID Date Data Source [id number] 01/20/2020 07:45:04 PM EDT [facility] Name Value Range Interpretation Code Description Data Ale rce(s) Supporting Document(s) SODIUM 136 mmol/L (136-145) [facility] POTASSIUM 4.1 mmol/L (3.6-5.2) [facility] CHLORIDE 97 mmol/L (100-108) L [facility] CO2 32 mmol/L (22-31) H [facility] ANION GAP 7 mmol/L (7-16) [facility] UREA NITROGEN 25 mg/dL (7-24) H [facility] CREATININE 6.14 mg/dL (0.80-1.30) HH [facility] RESULT VERIFIED BY REPEAT TESTING.RESULT (S) CALLED TO AND READ BACK BY DR TABARES AT [id number] ON [id number] AT 9042 [place] [address] BUN/CREAT RATIO 4.1 RATIO (10.0-20.0) L [facility] GLUCOSE 129 mg/dL (70-99) H [facility] CALCIUM 8.4 mg/dL (8.4-10.2) [facility] GFR 9 ml/min/1.73m2 (>59) L [facility] GFR ( AMER) 11 ml/min/1.73m2 (>59) L [facility] GFR INTERPRETATION [facility] --NORMAL KIDNEY FUNCTION OR MILD DISEASE - GFR >OR= 60CHRONIC KIDNEY DISEASE - GFR 15 - 59RENAL FAILURE - GFR <15 Est. GFR calculation based on the MDRDstudy equation, which assumes a steadystate for creatinine. Est. GFR should notbe used for medication dosing. ID Date Data Source [id number] 01/20/2020 06:20:23 PM EDT [facility] Name Value Range Interpretation Code Description Data Ale rce(s) Supporting Document(s) HEMOGLOBIN A1C @ 8.1 % (4.0-6.0) H [facility] Performed using [employer] immunoassa y.Care must be taken when interpreting LpH8lawfznoa in patients with a hemoglobin variantor decreased erythrocyte lifespan. Values 5.7 - 6.4% suggest prediabetes.Values >=6.5% are diagnostic for diabetes.REFERENCE: DIABETES CARE 2018: 41(S13-S27). EST AVERAGE GLUCOSE 186 mg/dL [facility] ID Date Data Source [id number] 01/20/2020 05:24:10 PM EDT [facility] Name Value Range Interpretation Code Description Data Ale rce(s) Supporting Document(s) WBC 3.7 10*3/uL (4.1-11.0) L [facility] [place] RBC 4.22 10*6/uL (4.60-6.10) L [facility] HGB 12.0 g/dL (13.5-18.0) L [facility] HCT 36.5 % (41.0-53.0) L [facility] MCV 86.5 fL (80.0-95.0) [facility] MCH 28.6 pg (27.0-32.0) [facility] MCHC 33.0 g/dL (32.0-36.0) [facility] RDW 14.8 % (10.5-14.5) H [facility] PLT 79 10*3/uL (150-450) L [facility] MPV 8.5 fL (7.1-10.7) [facility] ID Date Data Source [id number] 10/15/2019 05:55:20 PM EST [facility] Name Value Range Interpretation Code Description Data Ale rce(s) Supporting Document(s) &PDF [facility] DJWNCr7nUsGVFqAa66/FJIswUXXzd5TaKFegZFt0IFukQGPsJ1WwtMnmPBeESbLUE2cpPo2RTXGXEHXm vci [file] AgICAgICAgICAgICAgICAgICAgICAgICAgICAgICAg ICAgICAgICAgICAgICAgICAgICAgICAgICAgICAgICAgICAgICAgICAgICAgICAgICAgICAgICAgICAg ICANCiAgICAgICAgICAgICAgICAgICAgICAgICAgICAgICAgICAgICAgICAgICAgICAgICAgICAgICAg ICAgICAgICAgICAgICAgICAgICAgICAgICAgICAgIC AgICAgICAgICAgICANCiAgICAgICAgICAgICAgICAgICAgICAgICAgICAgICAgICAgICAgICAgICAgIC AgICAgICAgICAgICAgICAgICAgICAgICAgICAgICAgICAgICAgICAgICAgICAgICAgICAgICANCiAgIC AgICAgICAgICAgICAgICAgICAgICAgICAgICAgICAg ICAgICAgICAgICAgICAgICAgICAgICAgICAgICAgICAgICAgICAgICAgICAgICAgICAgICAgICAgICAg ICAgICANCiAgICAgICAgICAgICAgICAgICAgICAgICAgICAgICAgICAgICAgICAgICAgICAgICAgICAg ICAgICAgICAgICAgICAgICAgICAgICAgICAgICAgIC AgICAgICAgICAgICAgICANCiAgICAgICAgICAgICAgICAgICAgICAgICAgICAgICAgICAgICAgICAgIC AgICAgICAgICAgICAgICAgICAgICAgICAgICAgICAgICAgICAgICAgICAgICAgICAgICAgICAgICANCi AgICAgICAgICAgICAgICAgICAgICAgICAgICAgICAg ICAgICAgICAgICAgICAgICAgICAgICAgICAgICAgICAgICAgICAgICAgICAgICAgICAgICAgICAgICAg ICAgICAgICANCiAgICAgICAgICAgICAgICAgICAgICAgICAgICAgICAgICAgICAgICAgICAgICAgICAg ICAgICAgICAgICAgICAgICAgICAgICAgICAgICAgIC AgICAgICAgICAgICAgICAgICANCiAgICAgICAgICAgICAgICAgICAgICAgICAgICAgICAgICAgICAgIC AgICAgICAgICAgICAgICAgICAgICAgICAgICAgICAgICAgICAgICAgICAgICAgICAgICAgICAgICAgIC ANCiAgICAgICAgICAgICAgICAgICAgICAgICAgICAg ICAgICAgICAgICAgICAgICAgICAgICAgICAgICAgICAgICAgICAgICAgICAgICAgICAgICAgICAgICAg ICAgICAgICAgICANCjw/fRExG8hieLArusF4E0woPs3TDj7ADI1et3DyLRFtWGlgnoLwFwyLFkDwKPVh WwsNFtq4WFqdVG5HiQRpC3CnR6XbSPxyLQ0NDMLjHF RpaPIfAYGiZRQwMxQ3GIYmFNzuKS6DgCBsIIqrJIDhHXQtNlDnKOExQP6QWGKpI359udPiCp3UHb5TZr GmJI1dan4CNtQfGROcCxwDDhh6FAxtTQ6VzQDpG4AjcXPkq9qSMbZmR1RPDJO0ANLdAp5YTFZmIdGtTX EoAHsfKP6jPHRiNAQXtEefbgZ8IB9GCM7rvfGaJH7K JgWsZs2sLo0DPzIeK5ZfG5RyBHCgVHNVREzfNA7BMMKkZBH0WQReUCKxSSCNDqApP94cYY5UV4Eol83w JnT3BZPlZaLhCYecNW36tYamviDtkNFclKlnVD6EDj5+DQplbmRvYmoNCnhyZWYNCjAgMjINCjAwMDAw USRoUVIuVaR6ZhRvJt1WPOGbCKQjINEkJeSgUBWbKF SyNGzqFDIiUNE3EaI2IHEeAMJkRL7LBzCqCVAmAgG7DSDcUIEoRUOync7YLPNzLIGyQCQ8EtNwNSMhDI VsMYzjRTEwAWLpMbDfRHXvPJAcAH9DYeXsARGlHMW9VlIfKXNwXSNxfg3IHFRvSNPbNNnvScDxRFDjRG PhDJzrUISgJYW2NBJ6OUHyTSNoMO5UNjQhXWMnLCJ4 YwOjNNApDKEzjm6XOVMcQHNxBzQ8DDCdBSEfHAQjDPstJZOrYQY5PsMkMBEaQBFcXA9GUcQnJXLyTEoj XQTfWOPsELXsfi9SLLBiMBDbAVKfGAIjQGKlSCOxQLwbWNWlVRD0KPsfLDKvRRYuKB0RBzRzVMNgXXs0 ICapGJQwPTJxne1FPHBvPURgCBj7EDEcYAJgJCJyEQ moAFSuXJQ8KFP1JCEaQOTrHY2IDbTwXKNoZII4SbnkEYMoOZFgrv0QWJXqIQSaQKW7GFFeHQYnFCPoHJ zfAUMhGVB1GOx3JMCtHAOeLG7JWfDxBGAnTiP8CkGqCMScYJRuci9YkFQbkGkujg7JBHzIHw1NoNpdKH YjBOlkZp1zuOFaFSChZWTLQn9NeiPiFTUqKADYZFbw MOOeSYRnZECjZJtpZgLmOEU5FTd6OVQeQJOjMgTiWVWyTqa0ZyG9DmR0QPQfVGBuD9A3GOW3VrSnM7Np VKNbE1MxRZE5BEn+WD8bCQt+Zp4Yl1PhocE2rpOhFDqpLOewGm8AIFMID8DLMf== Procedure Social History Code Duration Value Status Description Data Source(s ) Smoking 09/28/2020 12:00:00 AM EST Never Smoker completed Never S moker eCW1 (Formerly [facility]) Smoking 09/14/2020 12:00:00 AM EST Never Smoker completed Never S moker eCW1 (Formerly [facility]) Alcohol intake 08/07/2020 12:00:00 AM EST Yes completed [facility] Smoking 08/07/2020 12:00:00 AM EST Former smoker completed Former smoker [facility] Alcohol intake 08/03/2020 12:00:00 AM EST Yes completed [facility] Smoking 08/03/2020 12:00:00 AM EST Former smoker completed Former smoker [facility] Smoking 07/13/2020 12:00:00 AM EST Never Smoker completed Never S moker eCW1 (Formerly [facility]) Smoking 07/13/2020 12:00:00 AM EST Never Smoker completed Never S moker eCW1 (Formerly [facility]) Smoking 06/29/2020 12:00:00 AM EST Never Smoker completed Never S moker eCW1 (Formerly [facility]) Smoking 06/29/2020 12:00:00 AM EST Never Smoker completed Never S moker eCW1 (Formerly [facility]) Smoking 06/08/2020 12:00:00 AM EDT Never Smoker completed Never S moker eCW1 (Formerly [facility]) Smoking 06/08/2020 12:00:00 AM EDT Never Smoker completed Never S moker eCW1 (Formerly [facility]) Smoking 06/08/2020 12:00:00 AM EDT Never Smoker completed Never S moker eCW1 (Formerly [facility]) Smoking 06/08/2020 12:00:00 AM EDT Never Smoker completed Never S moker eCW1 (Formerly [facility]) Smoking 03/02/2020 12:00:00 AM EDT Never Smoker completed Never S moker eCW1 (Formerly [facility]) Alcohol intake 01/20/2020 12:00:00 AM EDT No completed [facility] Smoking 01/20/2020 12:00:00 AM EDT Never smoker completed Never s moker [facility] Vital Signs ID Date Data Source UNK Name Value Range Interpretation Code Description Data Source(s) Body surface area Derived from formula 2.23 m2 2.23 m2 [facility] ([facility]) Body weight 111.586 kg 111.586 kg [facility] ([facility]) [place] body weight 154 [lb_av] 154 [lb_av] [facility] Body mass index (BMI) [Ratio] 37.4 kg/m2 37.4 k g/m2 [facility] ([facility]) Body weight 246.00 [lb_av] 246.00 [lb_av] [facility] ([facility]) Body height 68 [in_i] 68 [in_i] [facility] ([facility]) 5'8" Diastolic blood pressure 80 mm[Hg] 80 mm[Hg] [facility] ([facility]) Systolic blood pressure 140 mm[Hg] 140 mm[Hg] M [facility]ENT ([facility]) Diastolic blood pressure 64 mm[Hg] 64 mm[Hg] eCW1 (Formerly [facility]) Systolic blood pressure 111 mm[Hg] 111 mm[Hg] e CW1 (Formerly [facility]) Body temperature 97 [degF] 97 [degF] eCW1 ([facility]) Respiratory rate 18 /min 18 /min eCW1 ([facility]) Heart rate 64 /min 64 /min eCW1 ([facility]) Body mass index (BMI) [Ratio] 36.02 kg/m2 36.02 kg/m2 eCW1 (Formerly [facility]) Body height [in_i] eCW1 ([facility]) Body weight kg eCW1 ([facility]) Body weight 230 [lb_av] 230 [lb_av] eCW1 ([facility]) Body mass index (BMI) [Ratio] 38.01 kg/m2 38.01 kg/m2 [facility] Body weight 113.399 kg 113.399 kg [facility] Body height 172.7 cm 172.7 cm [facility] Respiratory rate 16 /min 16 /min [facility] Heart rate 84 /min 84 /min [facility] Diastolic blood pressure 60 mm[Hg] 60 mm[Hg] [facility] Systolic blood pressure 106 mm[Hg] 106 mm[Hg] [facility] Oxygen saturation in Arterial blood by Pulse oximetry 99 % 99 % [facility] Respiratory rate 16 /min 16 /min [facility] Heart rate 90 /min 90 /min [facility] Diastolic blood pressure 63 mm[Hg] 63 mm[Hg] [facility] Systolic blood pressure 101 mm[Hg] 101 mm[Hg] [facility] Body mass index (BMI) [Ratio] 38.05 kg/m2 38.05 kg/m2 [facility] Body weight 113.5 kg 113.5 kg [facility] post Wt. Body temperature 36.56 Temitope 36.56 Temitope [facility] Body height 172.7 cm 172.7 cm [facility] Diastolic blood pressure 59 mm[Hg] 59 mm[Hg] eCW1 (Formerly [facility]) Systolic blood pressure 125 mm[Hg] 125 mm[Hg] e CW1 (Formerly [facility]) Body temperature 97.2 [degF] 97.2 [degF] W1 ( [facility]) Respiratory rate 16 /min 16 /min W1 ([facility]) Heart rate 56 /min 56 /min eCW1 ([facility]) Body mass index (BMI) [Ratio] 37.43 kg/m2 37.43 kg/m2 eCW1 ([facility]ly [facility]) Body height [in_i] eCW1 ([facility]) Body weight 239 [lb_av] 239 [lb_av] eCW1 ([facility]) Diastolic blood pressure 66 mm[Hg] 66 mm[Hg] eCW1 ([facility]ly [facility]) Systolic blood pressure 124 mm[Hg] 124 mm[Hg] e CW1 ([facility]ly [facility]) Body temperature 98 [degF] 98 [degF] eCW1 ([facility]) Respiratory rate 16 /min 16 /min eCW1 ([facility]) Heart rate 87 /min 87 /min eCW1 ([facility]) Body mass index (BMI) [Ratio] 37.43 kg/m2 37.43 kg/m2 eCW1 ([facility]ly [facility]) Body height [in_i] eCW1 ([facility]) Body weight 239 [lb_av] 239 [lb_av] eCW1 ([facility]) Diastolic blood pressure mm[Hg] eCW1 ([facility]ly [facility]) Systolic blood pressure 130 mm[Hg] 130 mm[Hg] e CW1 ([facility]ly [facility]) Body temperature 97.7 [degF] 97.7 [degF] eCW1 ( [facility]) Respiratory rate 17 /min 17 /min eCW1 ([facility]) Heart rate 86 /min 86 /min eCW1 ([facility]) Body mass index (BMI) [Ratio] 37.43 kg/m2 37.43 kg/m2 eCW1 ([facility]ly [facility]) Body height [in_i] eCW1 ([facility]) Body weight kg eCW1 ([facility]) Body weight 239 [lb_av] 239 [lb_av] eCW1 ([facility]) Diastolic blood pressure 60 mm[Hg] 60 mm[Hg] eCW1 ([facility]) Systolic blood pressure 120 mm[Hg] 120 mm[Hg] e CW1 ([facility]ly [facility]) Body temperature 98.5 [degF] 98.5 [degF] eCW1 ( [facility]) Respiratory rate 18 /min 18 /min eCW1 ([facility]) Heart rate 87 /min 87 /min eCW1 ([facility]) Body mass index (BMI) [Ratio] 37.43 kg/m2 37.43 kg/m2 eCW1 ([facility]ly [facility]) Body height [in_i] eCW1 ([facility]) Body weight kg eCW1 ([facility]) Body weight 239 [lb_av] 239 [lb_av] eCW1 ([facility]) Diastolic blood pressure 55 mm[Hg] 55 mm[Hg] eCW1 ([facility]ly [facility]) Systolic blood pressure 106 mm[Hg] 106 mm[Hg] e CW1 ([facility]ly [facility]) Body temperature 98.5 [degF] 98.5 [degF] eCW1 ( [facility]) Respiratory rate 19 /min 19 /min eCW1 ([facility]) Heart rate 88 /min 88 /min eCW1 ([facility]) Body mass index (BMI) [Ratio] 37.55 kg/m2 37.55 kg/m2 W1 ([facility]ly [facility]) Body height [in_i] eCW1 ([facility]) Body weight 239.8 [lb_av] 239.8 [lb_av] eCW1 (Formerly [facility]) Body surface area Derived from formula 2.24 m2 2.24 m2 [facility] ([facility], ) Body weight 112.096 kg 112.096 kg [facility] ([facility], ) [place] body weight 154 [lb_av] 154 [lb_av] [facility] T ([facility], ) Body mass index (BMI) [Ratio] 37.6 kg/m2 37.6 k g/m2 [facility] ([facility], ) Body weight 247.12 [lb_av] 247.12 [lb_av] [facility] T ([facility]) Body height 68 [in_i] 68 [in_i] [facility] ([facility]) 5'8" Heart rate 87 /min 87 /min [facility] ([facility]) Diastolic blood pressure 69 mm[Hg] 69 mm[Hg] [facility] ([facility]) Systolic blood pressure 126 mm[Hg] 126 mm[Hg] [facility] ([facility]) Body weight 112.493 kg 112.493 kg [facility] ([facility]) Body mass index (BMI) [Ratio] 37.7 kg/m2 37.7 k g/m2 [facility] ([facility]) Body weight 248.00 [lb_av] 248.00 [lb_av] [facility] T ([facility]) Body height 68 [in_i] 68 [in_i] [facility] ([facility]) 5'8" Diastolic blood pressure 71 mm[Hg] 71 mm[Hg] [facility] ([facility]) Systolic blood pressure 124 mm[Hg] 124 mm[Hg] [facility] ([facility]) Body mass index (BMI) [Ratio] 37.9 kg/m2 37.9 k g/m2 [facility] ([facility] Heart rate 70 /min 70 /min [facility] ([facility] Diastolic blood pressure 73 mm[Hg] 73 mm[Hg] [facility] ([facility] Systolic blood pressure 125 mm[Hg] 125 mm[Hg] [facility] ([facility] Body weight 249.00 [lb_av] 249.00 [lb_av] [facility] T ([facility] Body height 68 [in_i] 68 [in_i] [facility] ([facility] 5'8" Diastolic blood pressure 74 mm[Hg] 74 mm[Hg] eCW1 ([facility]ly [facility]) Systolic blood pressure 128 mm[Hg] 128 mm[Hg] e CW1 ([facility]ly [facility]) Body temperature 98.2 [degF] 98.2 [degF] eCW1 ( [facility]) Respiratory rate 20 /min 20 /min eCW1 ([facility]) Heart rate 81 /min 81 /min eCW1 ([facility]) Body mass index (BMI) [Ratio] 38.21 kg/m2 38.21 kg/m2 eCW1 ([facility]) Body height [in_i] eCW1 ([facility]) Body weight 244 [lb_av] 244 [lb_av] eCW1 ([facility]) Oxygen saturation in Arterial blood by Pulse oximetry 99 % 99 % [facility] Body mass index (BMI) [Ratio] 37.25 kg/m2 37.25 kg/m2 [facility] Body weight 111.131 kg 111.131 kg [facility] Body height 172.7 cm 172.7 cm [facility] Heart rate 92 /min 92 /min [facility] Diastolic blood pressure 64 mm[Hg] 64 mm[Hg] [facility] Systolic blood pressure 117 mm[Hg] 117 mm[Hg] [facility] Body weight 111.586 kg 111.586 kg [facility] ([facility], ) Body mass index (BMI) [Ratio] 37.4 kg/m2 37.4 k g/m2 [facility] ([facility], ) Body weight 246.00 [lb_av] 246.00 [lb_av] [facility] T ([facility], ) Body height 68 [in_i] 68 [in_i] [facility] ([facility], ) 5'8" Diastolic blood pressure 58 mm[Hg] 58 mm[Hg] [facility] Systolic blood pressure 116 mm[Hg] 116 mm[Hg] M [facility] ([facility]) Body weight 110.225 kg 110.225 kg [facility] ([facility]) Body mass index (BMI) [Ratio] 36.9 kg/m2 36.9 k g/m2 [facility] ([facility]) Body weight 243.00 [lb_av] 243.00 [lb_av] [facility] Body height 68 [in_i] 68 [in_i] [facility] ([facility]) 5'8" Diastolic blood pressure 67 mm[Hg] 67 mm[Hg] [facility] ([facility]) Systolic blood pressure 109 mm[Hg] 109 mm[Hg] [facility] ([facility]) Patient Treatment Plan of Care Planned Activity Planned Date Details Description Data Source (s) ezetimibe 10 MG Oral Tablet 08/09/2020 12:00:00 AM [facility] clopidogrel 75 MG Oral Tablet 08/04/2020 12:00:00 AM [facility] atorvastatin 40 MG Oral Tablet 08/04/2020 12:00:00 AM [facility] Aspirin 81 MG Chewable Tablet 08/04/2020 12:00:00 AM [facility] clopidogrel 75 MG Oral Tablet 06/08/2020 12:00:00 AM EDT [facility] Propranolol Hydrochloride 10 MG Oral Tablet 05/28/2020 12:00:00 AM EDT [facility] b complex-vitamin c-folic acid (NEPHRO-BARBARA) 0.8 MG TA BS 05/28/2020 12:00:00 AM EDT [facility] sildenafil 50 MG Oral Tablet 05/13/2020 12:00:00 AM EDT [facility]
[2020-10-14] MEDS ORDERED: MIDO10TA (19:01)
[2020-10-14] MEDS ORDERED: CLOP75TA2 (19:01)
--- NOTE | 2020-10-14 19:21 | REP ---
INDICATION: CHEST PAIN. COMPARISON: Comparison chest x-ray 23 August 2020. TECHNIQUE: Portable upright AP chest radiograph. FINDINGS: The lungs are well inflated and free of infiltrate. Pleural angles are sharp. Heart is not felt to be enlarged. Median sternotomy wires are noted virtually all of which appear to be interrupted. Monitoring electrodes are seen. The aorta is calcific and tortuous.. IMPRESSION: No active disease seen. Prior sternotomy with interrupted sternotomy sutures again noted.. <Electronically signed by Ruiz Lugo > 10/14/201917
[2020-10-14 19:45] LABS: BASO % 0.8 % (0.0-1.0); EOS # 0.2 10^3/uL (0.0-0.5); EOS % 3.9 % (0.0-3.0); HEMATOCRIT 37.7 % (42.0-52.0); HEMOGLOBIN 11.7 g/dl (13.5-17.5); LYMPH # 1.1 10^3/uL (1.5-5.0); LYMPH % 27.7 % (24.0-44.0); MEAN CORPUSCULAR HEMOGLOBIN 27.3 pg (27.0-33.0); MEAN CORPUSCULAR VOLUME 88.1 fl (80.0-96.0); MONO # 0.5 10^3/uL (0.0-0.8); MONO % 13.5 % (2.0-8.0); NEUTROPHILS # 2.1 10^3/uL (1.5-8.5); NEUTROPHILS % 53.8 % (36.0-66.0); RED BLOOD COUNT 4.28 10^6/uL (4.30-6.10); WHITE BLOOD COUNT 3.9 10^3/uL (4.0-10.0)
--- NOTE | 2020-10-14 19:46 | ECGEPIP ---
[facility] - ED Test Date: 2020-10-14 Pat Name: KALYANI WHITMORE Department: Room: - Gender: Male [employer]: MIRA : 1950 Requested By: Octavio Pete Order Number: [id number] Reading MD: Crystal Vasques Measurements Intervals [place] Rate: 80 P: -8 [place]: 140 QRS: 17 QRSD: 80 T: 105 QT: 400 QTc: 461 Interpretive Statements Normal sinus rhythm Inferior infarct , age undetermined decreased rate 08/23/20 Electronically Signed on 10-14-2020 19:45:45 EST by Crystal Vasques
[2020-10-14 19:53] LABS: PLATELET COUNT, AUTOMATED 88 10^3/uL (150-450)
[2020-10-14 19:58] LABS: INR 1.09; PROTHROMBIN TIME 14.3 SECONDS (12.5-14.3)
[2020-10-14 19:59] LABS: PARTIAL THROMBOPLASTIN TIME 33.2 SECONDS (24.2-38.5)
[2020-10-14 20:00] LABS: ALBUMIN 3.4 GM/DL (3.2-5.2); BILIRUBIN,DIRECT 0.2 MG/DL (0.0-0.2); BILIRUBIN,TOTAL 0.6 MG/DL (0.2-1.0); CK-MB VALUE MASS 3.3 NG/ML (<3.6); CREATININE FOR GFR 7.41 MG/DL (0.70-1.30); GLOMERULAR FILTRATION RATE 7.8 (>42); MB/CK RELATIVE INDEX 2.36 (< OR =4); PERCENT SATURATION 34.8 % (19.7-50.0); POTASSIUM SERUM 5.2 MEQ/L (3.5-5.1); TOTAL PROTEIN 7.9 GM/DL (6.4-8.2); TROPONIN I 0.02 NG/ML (< 0.10)
[2020-10-14 21:55] LABS: RSV AMPLIFICATION NEGATIVE (NEGATIVE)
[2020-10-14] MEDS ORDERED: ACETAMINOPHEN TAB 650MG DOSE (2X325MG) PO PRN (22:40)
[2020-10-14] MEDS ORDERED: GLUCOSE 4GM CHEW TABLET PO PRN (22:40)
[2020-10-14] MEDS ORDERED: MAALOX 30 ML SUSP *UDC PO PRN (22:40)
[2020-10-14] MEDS ORDERED: DEXTROSE 50% 50 ML SYRINGE IV PRN (22:40)
[2020-10-14] MEDS ORDERED: GLUCAGON INJ 1MG VIAL SC PRN (22:40)
[2020-10-14] MEDS ORDERED: MOM 30ML SUSPENSION UDC PO PRN (22:40)
--- OUTSIDE RECORDS SUMMARY | 2020-10-14 23:32 | CCD ---
Author Author [facility] Organization [facility] Address Unknown Phone Unavailable Care Team Providers Care Accounts Payable Technician Name Role Phone Nicki Dooley MD Unavailable [...] R EB DPM Unavailable Unavailable MAJAK, R BE DPM Unavailable Unavailable MAJAK, R EB DPM [...] Ziad MD Unavailable Unavailable Saundra, N Maikel HALAL BUTCHER Unavailable Unavailable Saundra, N Maikel HALAL BUTCHER Unavailable Unavailable [place], N Maikel HALAL BUTCHER Unavailable Unavailable [place], N Maikel HALAL BUTCHER Unavailable Unavailable Saundra, N Maikel HALAL BUTCHER Unavailable Unavailable Saundra, N Maikel HALAL BUTCHER Unavailable Unavailable Saundra, N Maikel HALAL BUTCHER Unavailable Unavailable [place], N Maikel HALAL BUTCHER Unavailable Unavailable Saundra, N Maikel HALAL BUTCHER Unavailable Unavailable Saundra, N Maikel HALAL BUTCHER Unavailable Unavailable Saundra, N Maikel HALAL BUTCHER Unavailable Unavailable [place], N Maikel HALAL BUTCHER Unavailable Unavailable Saundra, N Maikel HALAL BUTCHER Unavailable Unavailable Saundra, N Maikel HALAL BUTCHER Unavailable Unavailable [place], N Maikel HALAL BUTCHER Unavailable Unavailable Saundra, N Maikel HALAL BUTCHER Unavailable Unavailable Saundra, N Maikel HALAL BUTCHER Unavailable Unavailable [place], N Maikel HALAL BUTCHER Unavailable Unavailable Saundra, N Maikel HALAL BUTCHER Unavailable Unavailable [place], N Maikel HALAL BUTCHER Unavailable Unavailable [place], N Maikel HALAL BUTCHER Unavailable Unavailable Saundra, N Maikel HALAL BUTCHER Unavailable Unavailable [place], N Maikel HALAL BUTCHER Unavailable Unavailable Saundra, N Maikel HALAL BUTCHER Unavailable Unavailable Saundra, N Maikel HALAL BUTCHER Unavailable Unavailable Saundra, N Maikel HALAL BUTCHER Unavailable Unavailable Saundra, N Maikel HALAL BUTCHER Unavailable Unavailable Saundra, N Maikel HALAL BUTCHER Unavailable Unavailable [place], N Maikel HALAL BUTCHER Unavailable Unavailable Saundra, N Maikle HALAL BUTCHER Unavailable Unavailable [place], N Maikel HALAL BUTCHER Unavailable Unavailable MD RACHID GARZA Unavailable Unavailable [...] Unavailable Sun, Maikel DO Unavailable Unavailable Sun, Amikel DO Unavailable Unavailable Sun, Maikel DO Unavailable [...] Unavailable Sylvia, V RU PA-C Unavailable Unavailable Media, V RU PA-C Unavailable Unavailable Sylvia, V RU PA-C Unavailable Unavailable Media, V RU PA-C Unavailable Unavailable Media, V RU PA-C Unavailable Unavailable Re-disclosure Warning [...] is protected by Article 27-F of the [facility] Public Health law. If you continue you may have access to information: Regarding HIV / AIDS; Provided by facilities licensed or operated by the [facility] Office of Mental Health; or Provided by the [facility] Office for People With Developmental Disabilities. If such information is present, then the following [facility] mandated warning applies: This information has [...] law may result in a fine or fpc sentence or both. A general authorization for the release of medical or other information is NOT sufficient authorization for further disc losure. Family History Family Member Name Family Member Gender Family Member Status Date o f Status Description Data Source(s) Unknown Female Problem [facility] Encounters Encounter Providers Location Date Indications Data Source(s ) Outpatient Attender: RU PIPERAGUEDA-SJP.AGUEDA 12:00:00 AM EST - 10/14/2020 11:03:[address] [facility] Unknown [address] [facility] [id number] 09/16/2020 12:00:00 AM EST eCW1 ([facility]) (JANETH NP120) New Patient [address] [place] [address] 09/14/2020 12:00:00 AM EST eCW1 ([facility]) Outpatient Attender: Maikel Arguello NP SJPKishoreAGUEDA-SJP.AGUEDA 020 12:00:00 AM EST - 08/09/2020 10:39:57 AM EST [facility] Outpatient Attender: Aliya Fernando MDAdmitter: Aliya andre MD ES1-SJ.CVAU 08/03/2020 07:44:00 AM EST - 08/04/2020 07:00:[address] [facility] Patient discharged. (WND STRTCH) Stretcher Required Patients [address] [place] [id number] 07/13/2020 12:00:00 AM EST eCW1 ([facility]) Outpatient Attender: Maikel PIPERAGUEDA-SJP.AGUEDA 020 12:00:00 AM EST - 07/06/2020 02:02:35 PM EST [facility] Unknown [address] [facility] [address] 07/05/2020 12:00:00 AM EST eCW1 ([facility]) (WND STRTCH) Stretcher Required Patients [address] [place] [address] 06/29/2020 12:00:00 AM EST eCW1 ([facility]) Unknown [address] [facility] [address] 06/22/2020 12:00:00 AM EST eCW1 ([facility]) Unknown [address] [facility] [address] 06/15/2020 12:00:00 AM EDT eCW1 ([facility]) Outpatient Attender: Aliya Fernando MDAdmitter: Aliya andre MD ES1-SJ.CVAU 06/11/2020 11:35:05 AM EDT [facility] Outpatient Attender: Maikel Arguello NP SJP.AGUEDA-SJP.AGUEDA 020 12:00:00 AM EDT - 06/08/2020 02:21:20 PM EDT [facility] (WND STRTCH) Stretcher Required Patients [address] [place] [address] 06/08/2020 12:00:00 AM EDT eCW1 ([facility]) (WND STRTCH) Stretcher Required Patients [address] [address] 06/01/2020 12:00:00 AM EDT eCW1 ([facility]) (WND NP120) New Patient 120 Min [address] [place] [address] 05/25/2020 12:00:00 AM EDT eCW1 ([facility]) Outpatient Attender: Jany Hernandezang/[place]/Derian/R eindl 04/06/2020 10:45:00 AM EDT MEDENT ([facility]) Outpatient Attender: Jany Benitez/[place]/Derian/R eindl 03/18/2020 11:45:00 AM EDT MEDENT ([facility]) Outpatient Attender: EB MOSCOSO [facility] 02/18 01:15:00 PM EDT MEDENT ([facility] Outpatient [address] [facility] [address] 03/02/2020 12:00:00 AM EDT eCW1 ([facility]) Outpatient Attender: Maikel CHILDERSeferrer: Maikel Gamboa DO MOB-M OB.PAT 01/20/2020 12:58:44 PM EDT - 01/20/2020 02:20:57 PM EDT [facility] Outpatient Attender: MARCUS Benitez/[place] 12/25/2019 11:20:00 AM EDT MEDENT ([facility] ) Outpatient Referrer: MD RACHID GARZA 12/10/2019 05:29:00 AM EDT [facility] Outpatient Attender: Maikel Arguello NPReferrer: Maikel Arguello NP SJP.AGUEDA-SJP.AGUEDA 10/15/2019 07:02:01 AM EST - 10/15/2019 12:00:[address] [facility] Outpatient Referrer: Maikel Arguello NP SJP.AGUEDA-SJP.AGUEDA 020 12:00:00 AM EST - 10/15/2019 11:14:35 AM EST [facility] Outpatient Attender: Jany Benitez/[place]/Derian/R eindl 09/23/2019 08:45:00 AM EST MEDENT ([facility] Outpatient Referrer: MD RACHID GARZA 09/19/2019 02:57:00 PM EST [facility] Outpatient Referrer: MD RACHID GARZA 09/10/2019 02:54:00 PM EST [facility] Outpatient Attender: Maikel Arguello NP SJP.AGUEDA-SJP.AGUEDA 020 12:00:00 AM EST - 09/09/2019 02:14:19 PM EST [facility] Outpatient Attender: Jada Benitez/Adelaide/Derian/ Peter 09/04/2019 01:00:00 PM EST MEDENT ([facility] ) Outpatient Attender: Maikel Gamboa DOAdmitter: Maiekl Gamboa DO ES1-S J.EU 07/09/2019 11:37:[address] [facility] Medications Medication Brand Name Start Date Product Form Dose Route Admi nistrative Instructions Pharmacy Instructions Status Indications Reaction Description Data Source(s) ezetimibe 10 MG Oral Tablet ezetimibe (ZETIA) 10 MG ta blet ezetimibe (ZETIA) 10 MG tablet 08/09/2020 12:00:00 AM EST 10 mg Oral active Take 1 tablet (10 mg total) by mouth daily [facility] Aspirin 81 MG Chewable Tablet aspirin chewable tablet 81 mg aspirin chewable tablet 81 mg 08/04/2020 09:00:00 AM EST 81 mg Oral activ e 81 mg, Oral, Daily, First dose on Sun08/04/20 at 0900, Post-op
D/C any prior aspirin order
[facility] Medication administered onsite clopidogrel 75 MG Oral Tablet clopidogrel (PLAVIX) tab let 75 mg clopidogrel (PLAVIX) tablet 75 mg 08/04/2020 09:00:00 AM EST 75 mg Oral active 75 mg, Oral, Daily, First dose on Sun08/04/20 at 0900, Post-op
May begin the same day
[facility] Medication administered onsite atorvastatin 40 MG Oral Tablet atorvastatin (LIPITOR) 40 MG tablet atorvastatin (LIPITOR) 40 MG tablet 08/04/2020 12:00:00 AM EST 40 mg Oral active Take 1 tablet (40 mg total) by mouth nightly [facility] Aspirin 81 MG Chewable Tablet aspirin 81 MG chewable t ablet aspirin 81 MG chewable tablet 08/04/2020 12:00:00 AM EST 81 mg Oral ac tive Chew 1 tablet (81 mg total) daily [facility] clopidogrel 75 MG Oral Tablet clopidogrel (PLAVIX) 75 MG tablet clopidogrel (PLAVIX) 75 MG tablet 08/04/2020 12:00:00 AM EST 75 mg Oral active Take 1 tablet (75 mg total) by mouth daily [facility] furosemide (LASIX) injection 40 mg [id number] 08/04/2020 12:00:00 AM EST 40 mg Intravenous completed 40 mg, I ntravenous, Once, Sun08/04/20 at 0000, For [address] [facility] Medication administered onsite Regular Insulin, Human 100 UNT/ML Inject able Solution [Humulin R] insulin regular (HumuLIN,NovoLIN) IV injection 10 Units insulin regular (HumuLIN,NovoLIN) IV injection 10 Units 08/04/2020 12:00:00 AM EST 10 U Intravenous completed 10 Units, Int ravenous, Once, Sun08/04/20 at 0000, For [address] [facility] Medication administered onsite dextrose 50 % solution 25-50 g [id number] 08/04/2020 12:00:00 AM ES T Intravenous completed 25-50 g, Intr avenous, Once, Sun08/04/20 at 0000, For 1 dose
For BS <150 give 50 g (2 amp D50 or 100 ml)For BS 150-300 give 25 g (1 amp D50 or 50 ml).For BS>[address]
[facility] Medication administered onsite dextrose 10 % infusion [id number] 08/04/2020 12:00:00 AM EST 75 mL/h Intravenous completed 75 mL/hr, Int ravenous, at 75 mL/hr, Continuous, Starting Sun08/04/20 at 0000, For [address] [facility] Medication administered onsite atorvastatin 40 MG Oral Tablet atorvastatin (LIPITOR) tablet 40 mg atorvastatin (LIPITOR) tablet 40 mg 08/03/2020 09:00:00 PM EST 40 mg Oral active 40 mg, Oral, Nightly, First dose on Sun08/03/[address] [facility] Medication administered onsite Insulin Lispro 100 [...] NPO70- 1201 units 1 unit s 0 -2660 units 1 units 0 qxewr632- 2201 units 1 units 0 jemdi068-7243 units 1 units 0 ncnyk517- 3202 units 1 units 1 yltfm021-1316 units 1 units 1 aiown155-2154 units 1 units 1 units>420 call MD2 units 2 units 1 unitsTest glucose within 30 minutes of insulin administration.Administer insulin within 15 minutes (before or after) of the patient starting to eat.For patients that are NPO, use theNPO (correction) scale to cover POC glucose at 08:00, 12:00, 17:00.
[facility] Medication administered onsite normal saline flush 0.9 % injection 3 mL [id number] 08/03/2020 02:00:00 PM EST 3 mL Intravenous aborted 3 mL , Intravenous, PROTOCOL, First dose on Sun08/03/20 at 1400, Pre-op
flush per protocol, D/C Main IV fluid if appropriate
[facility] Medication administered onsite gabapentin 100 MG Oral Capsule gabapentin (NEURONTIN) capsule 100 mg gabapentin (NEURONTIN) capsule 100 mg 08/03/2020 02:00:00 PM EST 100 mg Oral active 100 mg, Oral, 2 times daily, First dose on Sun08/03/[address] [facility] Medication administered onsite pantoprazole 40 MG Delayed Release Oral Tablet pantoprazole (PROTONIX) EC tablet 40 mg pantoprazole (PROTONIX) EC tablet 40 mg 08/03/2020 02:00:[address] 40 mg Oral active Gastroesophageal Reflux Diseas e 40 mg, Oral, Daily, Indications: Gastroesophageal Reflux Disease, First dose on Sun08/03/[address] [facility] Gastroesophageal Reflux Disease Medication administered onsite Propranolol Hydrochloride 10 MG Oral Tablet propranolo l (INDERAL) tablet 5 mg propranolol (INDERAL) tablet 5 mg 08/03/2020 01:00:00 PM EST 5 mg Oral active 5 mg, Oral, 2 times daily, First dose on Sun08/03/[address] [facility] Medication administered onsite Nitroglycerin 0.4 MG Sublingual Tablet n itroglycerin (NITROSTAT) SL tablet 0.4 mg nitroglycerin (NITROSTAT) SL tablet 0.4 mg 08/03/2020 12:57:21 P M EST 0.4 mg Sublingual active 0.4 mg, S ublingual, Every 5 min PRN, chest pain, Starting Sun08/03/20 at 1257, Post-op
May administer every 5 minutes for 3 doses and call cardio lab MD.
[facility] Medication administered onsite Acetaminophen 325 MG Oral Tablet acetaminophen (TYLENO L) 325 MG tablet 650 mg acetaminophen (TYLENOL) 325 MG tablet 650 mg 08/03/2020 12:57:21 PM EST 650 mg Oral active 650 mg, Or al, Every 4 hours PRN, headaches, and non cardiac pain, Starting Sun08/03/20 at 1257, Post-op
"Maximum dose of acetaminophen is 4,000 mg from all sources in [address]."
[facility] Medication administered onsite Aspirin 325 MG Oral Tablet aspirin tablet 325 mg aspirin tab let 325 mg 08/03/2020 09:00:00 AM EST 325 mg Oral completed 325 mg, Oral, Once, Sun08/03/20 at 0900, For 1 dose, Pre-op
Give if scheduled for cardiac or peripheral angioplasty/stent or carotid stenting.Administer AM dose prior to procedure if NOT taken at home.Max of 1 dose per day.
[facility] Medication administered onsite Diphenhydramine Hydrochloride 50 MG Oral Capsule diphenhydrAMINE (BENADRYL) capsule 50 mg diphenhydrAMINE (BENADRYL) capsule 50 mg 08/03/2020 09 :00:00 AM EST 50 mg Oral completed 50 mg, Oral, call center receptionist, Sun08/03/20 at 0900, For 1 dose, Pre-op [facility] Medication administered onsite sodium chloride 0.9% (NS) infusion 4339-1670-38 08/03/2020 09:00:00 AM EST 100 mL/h Intravenous aborted at 100 m L/hr, 100 mL/hr, Intravenous, Continuous, Starting Sun08/03/20 at 0900, Pre-op
Start two hours prior to scheduled start time
[facility] Medication administered onsite normal saline flush 0.9 % injection 3 mL [id number] 08/03/2020 09:00:00 AM EST 3 mL Intravenous aborted 3 mL , Intravenous, Every 8 hours (scheduled), First dose on Sun08/03/20 at 0900, Pre-op
Rapid push positive pressure flushing shall be performed with a 10 cc normal saline syringe to check the PATENCY of a PIV site prior to any infusion therapy initiation unless resistance is met.
[facility] Medication administered onsite normal saline flush 0.9 % injection 3 mL [id number] 08/03/2020 09:00:00 AM EST 3 mL Intravenous aborted 3 mL , Intravenous, Every 8 hours (scheduled), First dose on Sun08/03/20 at 0900, Pre-op
Rapid push positive pressure flushing shall be performed with a 10 cc normal saline syringe to check the PATENCY of a PIV site prior to any infusion therapy initiation unless resistance is met.
[facility] Medication administered onsite clopidogrel 75 MG Oral Tablet clopidogrel (PLAVIX) 75 MG tablet clopidogrel (PLAVIX) 75 MG tablet 06/08/2020 12:00:00 AM EDT aborted Four tablets by mouth the night before the procedure [facility] Propranolol Hydrochloride 10 MG Oral Tablet propranolo l (INDERAL) 10 MG tablet propranolol (INDERAL) 10 MG tablet 05/28/2020 12:00:00 AM EDT 5 mg active 5 mg 2 (two) times a day [facility] b complex-vitamin c-folic acid (NEPHRO-BARBARA) 0.8 MG TABS [id number] 05/28/2020 12:00:00 AM EDT active TAKE ONE TABLET BY MOUTH @5PM [facility] sildenafil 50 MG Oral Tablet sildenafil (VIAGRA) 50 MG tablet sildenafil (VIAGRA) 50 MG tablet 05/13/2020 12:00:00 AM EDT active TAKE ONE TABLET BY MOUTH ONCE DAILY NEEDED [facility] Ensure High Protein 12/25/2019 12:00:00 AM EDT active MEDENT ([facility]) Lactulose 667 MG/ML Oral Solution Lactulose 12/25/2019 12:00:00 AM EDT active [facility] Insurance Providers Payer name Policy type / Coverage type Policy ID Covered republican ID Covered republican's relationship to arteaga Policy [place] Plan Information MEDICARE [id number] SP [id number] [facility] [id number] SP [id number] BCBS EMPIRE [place] [id number] SP [id number] INSURANCE COVID-19 COVID Velia C OVID MEDICARE [id number] Velia [id number] [employer]BS [id number] Velia YLS [id number] [facility] [id number] SP [id number] MEDICARE C [id number] S [id number] [facility] O [id number] S [id number] INSURANCE COVID-19 [id number] [employer] BCBS [id number] MEDICARE [id number] BCBS E[place]IRE [place] DIV [id number] SP [id number] MEDICARE [id number] SP [id number] INSURANCE COVID-19 COVID Velia C OVID INSURANCE COVID-19 [id number] INSURANCE COVID-19 COVID Velia C OVID MEDICARE [id number] SP [id number] [facility] [id number] SP [id number] BCBS EMPIRE [place] DIV [id number] SP [id number] MEDICARE [id number] SP [id number] A Medicare Dme Medigap Part B [id number] Self [id number] [facility] Medigap Part B [id number] Self [id number] Medicare Medicare Primary [id number] Self [id number] Medicare Dme Medigap Part B [id number] Self [id number] [facility] Medigap Part B [id number] Self [id number] Medicare Medicare Primary [id number] Self [id number] [place] Medicare Primary [id number] Self [id number] [employer] [place] Medigap Part B [id number] Self [id number] [place] Medicare Primary [id number] Self [id number] BCBS EMPIRE [place] DIV [id number] SP [id number] [facility] [id number] SP [id number] [facility] [place] Medigap Part B [id number] Self [id number] [place] Primary [id number] Self [id number] Medicare Dme Medigap Part B [id number] Self [id number] [facility] Medigap Part B [id number] Self [id number] Medicare Medicare Primary [id number] Self [id number] BCBS EMPIRE [place] DIV [id number] SP [id number] MEDICARE [id number] SP [id number] A Medicare Medigap Part B [id number] Self [id number] [facility] Medigap Part B [id number] Self [id number] Medicare Dme Medicare Primary [id number] Self [id number] [facility] [id number] SP [id number] ANSI-Commercial [id number] ANSI-Medicare Part B [id number] ANSI-Medicare Part B [id number] ANSI-Commercial [id number] ANSI-Medicare Part B [id number] ANSI-Commercial [id number] ANSI-Medicare Part B [id number] ANSI-Commercial [id number] ANSI-Commercial [id number] ANS-Medicare Part B [id number] ANSI-Medicare Part B [id number] ANSI-Commercial [id number] Medicare Dme Medigap Part B [id number] Self [id number] [facility] Part B [id number] Self [id number] Medicare Medicare Primary [id number] Self [id number] MEDICARE [id number] SP [id number] A [employer] [place] Medigap Part B [id number] Self [id number] [place] Medicare Primary [id number] Self [id number] [facility] [id number] SP [id number] BCBS EMPIRE [place] DIV [id number] SP [id number] Medicare Dme Medigap Part B [id number] Self 0 [id number] [facility] [id number] Self [id number] Medicare Medicare Primary [id number] Self [id number] MEDICARE [id number] S [id number] A BCBS EMPIRE [place] DIV [id number] [facility] [id number] SP [id number] MEDICARE [id number] SP [id number] A [employer] [place] Medigap Part B [id number] Self [id number] Medicare [place] Medicare Primary [id number] Self [id number] Medicare Dme Medigap Part B [id number] Self [id number] [facility] Medigap Part B [id number] Self [id number] Medicare Medicare Primary [id number] Self 08 [id number] [facility] [id number] SP [id number] BCBS EMPIRE [place] DIV [id number] SP [id number] Medicare Dme Medigap Part B [id number] Self [id number] [facility] Medigap Part B [id number] Self [id number] Medicare Medicare Primary [id number] Self 08 [id number] [facility] [id number] SP [id number] BCBS EMPIRE [place] DIV [id number] SP [id number] [facility] [id number] SP [id number] Medicare Dme Medigap Part B [id number] Self [id number] [facility] Medigap Part B [id number] Self [id number] Medicare Medicare Primary [id number] Self 08 [id number] [facility] Medigap Part B [id number] Self [id number] Medicare Medicare Primary [id number] Self 08 [id number] [facility] Medigap Part B [id number] Self [id number] Medicare Medicare Primary [id number] Self 08 [id number] [facility] Medigap Part B [id number] Self [id number] Medicare Medicare Primary [id number] Self 08 [id number] [facility] Medigap Part B [id number] Self [id number] Medicare Medicare Primary [id number] Self [id number] [facility] [id number] SP [id number] EMPIRE (STATE EMP) O [id number] S [id number] SELF PAY UNAVAILABLE UNAVAILA BLE MEDICARE [id number] Velia [id number] A BCBS EMPIRE [place] DIV [id number] SP [id number] [facility] P [id number] S [id number] Problems, Conditions, and Diagnoses Code Display Name Description Problem Type Effective Dates Data Source(s) L97.412 [id number] Non-pressure chronic ulcer of right heel and midfoot with fat layer exposed Problem 09/14/2020 12:00:00 AM EST eCW1 ([facility]) E87.5 Hyperkalemia Hyperkalemia [id number] 08/03/2020 12:00:00 A M [facility] 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, without long-term current use of insulin Type 2 diabetes mellitus with chronic kidney disease on chronic dialysis, without long-term current use of insulin [id number] 07/09/2020 12:00:00 AM EST [facility] I35.0 Nonrheumatic aortic valve stenosis Nonrheumatic aortic valve stenosis [id number] 07/09/2020 12:00:00 AM [facility] L73.9 [id number] Folliculitis Problem 05/25/2020 12:00:00 AM EDT eCW1 ([facility]) E11.628 [id number] Type 2 diabetes mellitus with other skin complications Problem 05/25/2020 12:00:00 AM EDT eCW1 ([facility]) 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 Erectile dys function due to diseases classified elsewhere Problem 03/02/2020 12:00:00 AM EDT eCW1 ([facility]) I35.0 Nonrheumatic aortic (valve) stenosis Nonrheumati c aortic (valve) stenosis Diagnosis 10/14/2020 09:34:57 AM EST [facility] K92.1 Melena Melena Diagnosis 10/14/2020 09:34:57 AM [facility] E78.5 Hyperlipidemia, unspecified Hyperlipidemia, unspecifie d Diagnosis 10/14/2020 09:34:57 AM [facility] Z95.1 Presence of aortocoronary bypass graft P resence of aortocoronary bypass graft Diagnosis 10/14/2020 09:34:57 AM [facility] I95.3 Hypotension of hemodialysis Hypotension of hemodialysi s Diagnosis 08/09/2020 09:30:[address] [facility] Z99.2 Dependence on renal dialysis Dependence on renal dialy sis Diagnosis 08/03/2020 07:44:[address] [facility] N18.6 End stage renal disease End stage renal disease Diagno sis 08/03/2020 07:44:[address] [facility] E11.22 Type 2 diabetes mellitus with diabetic c hronic kidney disease Type 2 diabetes mellitus with diabetic c Diagnosis 08/03/2020 07:44:[address] [facility] K31.7 Polyp of stomach and duodenum Polyp of stomach and duo denum Diagnosis 01/20/2020 12:58:[address] [facility] Surgeries/Procedures Procedure Description Date Indications Data [...] Status post four vessel coronary artery bypass [facility] Status post four vessel coronary artery bypass GLUC BLD GLUC MNTR DEV CLEARED FDA SPEC HOME USE POCT GLUCOSE Routine 08/04/2020 4:57 PM EST 08/04/2020 09:57:[address] [facility] GLUC BLD GLUC MNTR DEV CLEARED FDA SPEC HOME USE POCT GLUCOSE Routine 08/04/2020 8:48 AM EST 08/04/2020 01:48:[address] [facility] KU2 PANEL KU2 PANEL STAT 08/04/2020 7:11 AM EST 08/04/2020 12:11:[address] [facility] BLOOD COUNT COMPLETE AUTOMATED CBC STAT 08/04/2020 7:11 A M EST 08/04/2020 12:11:[address] [facility] PHOSPHORUS INORGANIC PHOSPHORUS STAT 08/04/2020 7:11 AM EST 08/04/2020 12:11:00 PM [facility] Hemodialysis (procedure) HEMODIALYSIS INPATIENT TX Routine 08/04/2020 7:06 AM EST 08/04/2020 12:06:01 PM EST [facility] Hemodialysis (procedure) HEMODIALYSIS INPATIENT TX Routine 08/04/2020 7:06 AM EST 08/04/2020 12:06:01 PM [facility] GLUC BLD GLUC MNTR DEV CLEARED FDA SPEC HOME USE POCT GLUCOSE Routine 08/04/2020 6:40 AM EST 08/04/2020 11:40:00 AM [facility] ECG ROUTINE ECG W/LEAST 12 LDS TRCG ONLY W/O I&R ECG 12-LEAD Routine 08/04/2020 5:46 AM EST 08/04/2020 10:46:17 AM [facility] GLUC BLD GLUC MNTR DEV CLEARED FDA SPEC HOME USE POCT GLUCOSE Routine 08/04/2020 5:46 AM EST 08/04/2020 10:46:00 AM [facility] BASIC METABOLIC PANEL CALCIUM TOTAL BASIC METABOLIC PANEL Routi ne 08/04/2020 5:44 AM EST 08/04/2020 10:44:00 AM [facility] GLUC BLD GLUC MNTR DEV CLEARED FDA SPEC HOME USE POCT GLUCOSE Routine 08/04/2020 4:43 AM EST 08/04/2020 09:43:00 AM [facility] GLUC BLD GLUC MNTR DEV CLEARED FDA SPEC HOME USE POCT GLUCOSE Routine 08/04/2020 3:44 AM EST 08/04/2020 08:44:00 AM [facility] GLUC BLD GLUC MNTR DEV CLEARED FDA SPEC HOME USE POCT GLUCOSE Routine 08/04/2020 2:46 AM EST 08/04/2020 07:46:00 AM [facility] GLUC BLD GLUC MNTR DEV CLEARED FDA SPEC HOME USE POCT GLUCOSE Routine 08/04/2020 2:11 AM EST 08/04/2020 07:11:00 AM [facility] BASIC METABOLIC PANEL CALCIUM TOTAL BASIC METABOLIC PANEL Timed 08/04/2020 2:00 AM EST 08/04/2020 07:00:00 AM [facility] GLUC BLD GLUC MNTR DEV CLEARED FDA SPEC HOME USE POCT GLUCOSE Routine 08/04/2020 1:45 AM EST 08/04/2020 06:45:[address] [facility] GLUC BLD GLUC MNTR DEV CLEARED FDA SPEC HOME USE POCT GLUCOSE Routine 08/04/2020 1:13 AM EST 08/04/2020 06:13:00 AM [facility] CMB CMB STAT 08/04/2020 12:38 AM EST 08/04/20 05:38:00 AM [facility] CREATINE KINASE MB FRACTION ONLY CKMB Timed 08/04/2020 12:38 AM EST 08/04/2020 05:38:00 AM [facility] GLUC BLD GLUC MNTR DEV CLEARED FDA SPEC HOME USE POCT GLUCOSE Routine 08/03/2020 11:19 PM EST 08/04/2020 04:19:00 AM [facility] ECG ROUTINE ECG W/LEAST 12 LDS TRCG ONLY W/O I&R ECG 12-LEAD STAT 08/03/2020 11:11 PM EST 08/04/2020 04:11:49 AM [facility] GLUC BLD GLUC MNTR DEV CLEARED FDA SPEC HOME USE POCT GLUCOSE Routine 08/03/2020 6:14 PM EST 08/03/2020 11:14:00 PM [facility] CMB CMB STAT 08/03/2020 4:07 PM EST 08/03/20 09:07:00 PM [facility] CREATINE KINASE MB FRACTION ONLY CKMB Routine 08/03/2020 4:07 PM EST 08/03/2020 09:07:00 PM [facility] BASIC METABOLIC PANEL CALCIUM TOTAL BASIC METABOLIC PANEL Routi ne 08/03/2020 4:07 PM EST 08/03/2020 09:07:00 PM EST [facility] GLUC BLD GLUC MNTR DEV CLEARED FDA SPEC HOME USE POCT GLUCOSE Routine 08/03/2020 1:58 PM EST 08/03/2020 06:58:[address] [facility] CARDIAC CATHETERIZATION CARDIAC CATHETERIZATION Routine 08/03/2020 [...] stenosisStatus post four vessel coronary artery bypass 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, without long-term current use of insulin Hemodialysis-associated hypotension Hyperlipidemia, unspecified hyperlipidem ia type Nonrheumatic aortic valve stenosis Status post four vessel coronary artery bypass ECG ROUTINE ECG W/LEAST 12 LDS TRCG ONLY W/O I&R ECG 12-LEAD Routine 08/03/2020 8:17 AM EST 08/03/2020 01:17:16 PM EST [facility] FINE NEEDLE ASPIRATION W/O IMAGING GUIDANCE 07/13/2020 12:00:00 AM EST [email or web address] ([facility]) DEBRIDEMENT OPEN WOUND 20 SQ CM/< 07/08/2020 12:00:00 AM EST [facility] ([facility] DEBRIDEMENT OPEN WOUND 20 SQ CM/< 07/01/2020 12:00:00 AM EST [facility] ([facility] FINE NEEDLE ASPIRATION W/O IMAGING GUIDANCE 06/29/2020 12:00:00 AM EST eCW1 ([facility]) DEBRIDEMENT OPEN WOUND 20 SQ CM/< 06/10/2020 12:00:00 AM EDT [facility] ([facility] FINE NEEDLE ASPIRATION W/O IMAGING GUIDANCE 06/08/2020 12:00:00 AM EDT eCW1 ([facility]) DEBRIDEMENT SUBCUTANEOUS TISSUE 20 SQ CM/< 06/01/2020 12:00:00 AM EDT [facility] ([facility] FINE NEEDLE ASPIRATION W/O IMAGING GUIDANCE 06/01/2020 12:00:00 AM EDT eCW1 ([facility]) FINE NEEDLE ASPIRATION W/O IMAGING GUIDANCE 05/25/2020 12:00:00 AM EDT eCW1 ([facility]) DEBRIDEMENT OPEN WOUND 20 SQ CM/< 05/18/2020 [...] Periph eral 03/30/2020 12:00:00 AM EDT [facility] ([facility] Moderate Sedation Services; Same Phys Intl 15 Mins; PT >= 5 Years 03/30/2020 12:00:00 AM EDT [facility] ([facility] DEBRIDEMENT OPEN WOUND 20 SQ [...] EDT Moreno yp of stomach and duodenum [facility] Polyp of stomach and duodenum BLOOD COUNT COMPLETE AUTOMATED CBC Routine 0 2:15 PM EDT Polyp of stomach and duodenum 01/20/2020 06:15:00 PM EDT [place] yp of stomach and duodenum [facility] Polyp of stomach and duodenum HEMOGLOBIN GLYCOSYLATED A1C HEMOGLOBIN A1C Routine 01/20/2020 2:15 PM EDT Polyp of stomach and duodenum 01/20/2020 06:15:00 PM EDT [place] yp of stomach and duodenum [facility] Polyp of stomach and duodenum BASIC METABOLIC PANEL CALCIUM TOTAL BASIC METABOLIC PANEL Routi ne 01/20/2020 2:15 PM EDT Polyp of stomach and duodenum 01/20/2020 06:15:00 PM EDT [place] yp of stomach and duodenum [facility] Polyp of stomach and duodenum Dialysis Circuit, Intro [place]/Cath W/ Diagnostic Angiograp hy 09/16/2019 12:00:00 AM EST [facility] ([facility] Dialysis Circuit Perm Vascular Embolization Or Occlusion, En dovas 09/16/2019 12:00:00 AM EST [facility] ([facility]) Moderate Sedation Services; Same Phys Intl 15 Mins; PT >= 5 Years 09/16/2019 12:00:00 AM EST [facility] ([facility]) Results ID Date Data Source [id number] 08/23/2020 03:52:00 PM EST [facility] Name Value Range Interpretation Code Description Data Ale rce(s) Supporting Document(s) SARS-CoV-2 (COVID 19) [facility] This lab was ordered by [facility] a nd reported by [facility]. ID Date Data Source [id number] 08/16/2020 12:03:00 PM EST [facility] Name Value Range Interpretation Code Description Data Ale rce(s) Supporting Document(s) SARS coronavirus 2 RNA [Presence] in Res piratory specimen by ROZINA with probe detection [facility] This lab was ordered by [facility] a nd reported by [facility]. ID Date Data Source [id number] 08/05/2020 03:30:53 PM EST [facility] HospitalPATIE NT INFORMATIONPatient MRN Name Date of Age Gend*PT [id number] PhulaciKalyani tucker 1950 70 years M HOPPT Location Admission Date/Time Visit ID Attending ProviderCV-10 08/03/20 0744 --- --- EPI ID CSN Admitting Provider [id number] Aliya Fernando MD([id number]) Attestation signed by Aliya Fernando MD at 08/05/2020 3:30 PMSignature: LUIS ALBERTO Barajasate: August 05, 2020Time: 3:30 PM Physician Discharge Summary Kalyani AlvahemantMRN: [id number] date: 08/03/2020Attending Physician: Wen Barajas Diagnosis: <principal problem not specified>Principle Procedures:1. Cardiac catheterization: 08/03/2020Interpretation [id number] [facility] and [facility] on [facility] [...] loss minimal.Indication for Admission: patient presented to [facility] for scheduled cardiaccatheterization.Hospital Course & Complications: Patient [...] ONCE DAILY NEEDEDvitamin D (Ergocalciferol) 1.25 MG (01472 UT) Caps Take 1 capsule by mouth once a weekWhere to Get Your Medi cationsThese medications were sent to [facility] [address] [id number] aspirin 81 MG chewable tablet atorvastatin 40 [...] morenoe(s) Supporting Document(s) ID Date Data Source [id number] 08/04/2020 04:59:04 PM EST [facility] Name Value Range Interpretation Code Description Data Ale rce(s) Supporting Document(s) POC NOVA GLU 76 mg/dL (70-99) [facility] [place] [facility]FOR[facility] BY [facility] CLINICAL STAFF ID Date Data Source [id number] 08/04/2020 10:51:10 AM EST Page HospitalPATI NT INFORMATIONPatient MRN Name Date of Age Gend*PT [id number] Kalyani Tyson 1950 70 years M H[facility] Location Admission Date/Time Visit ID Attending ProviderHEMODIALYSIS 08/03/20 0744 --- Aliya Fernando MD([id number]) EPI ID CSN Admitting Provider [id number] Aliya Fernando MD([id number]) Attestation signed by Marcelo Crain MD at 08/04/2020 10:51 AMI saw and evaluated the patient and reviewed HALAL BUTCHER's note. I agree with thehistory, physical and [...] by Dr. Mayorga for ESRD on HD [facility] with a pmhx CAD s/p CABG, hemodialysis associated hypotension,nonrheumatic aortic valve stenosis, HLD, and non-insulin dependent DM II whopresented to [facility] on 08/03/20 for cardiac cath. Patient had [...] file Gets together: Not on file Attends mormonism service: Not on file Active member of [...] DAILY NEEDED vitamin D, Ergocalciferol, 1.25 MG (53320 UT) CAPS Take 1 capsule by mouthonce [...] 0655)PRN Meds:.acetaminophen, atropine sulfate, nitroglycerinMaureen DKishore Boyd, DIRECTOR [employer] Name Value Range Interpretation Code Description Data Ale rce(s) Supporting Document(s) ID Date Data Source [id number] 08/04/2020 08:59:26 AM EST [facility] Name Value Range Interpretation Code Description Data Ale rce(s) Supporting Document(s) POC NOVA GLU 93 mg/dL (70-99) [facility] [place] [place] [facility] CLINICAL STAFF ID Date Data Source [id number] 08/04/2020 09:54:54 AM EST [facility] Name Value Range Interpretation Code Description Data Ale rce(s) Supporting Document(s) PHOSPHORUS 7.7 mg/dL (2.5-4.5) H [facility] ID Date Data Source [id number] 08/04/2020 09:54:49 AM EST [facility] Name Value Range Interpretation Code Description Data Ale rce(s) Supporting Document(s) SODIUM 134 mmol/L (136-145) L [facility] POTASSIUM 5.5 mmol/L (3.6-5.2) H [facility] CHLORIDE 95 mmol/L (100-108) L [facility] CO2 24 mmol/L (22-31) [facility] ANION GAP 15 mmol/L (7-16) [facility] UREA NITROGEN 46 mg/dL (7-24) H [facility] CREATININE 8.60 mg/dL (0.80-1.30) HH [facility] CONSISTENT WITH PREVIOUS RESULTS BUN/CREAT RATIO 5.3 RATIO (10.0-20.0) L [facility] GLUCOSE 104 mg/dL (70-99) H [facility] CALCIUM 7.9 mg/dL (8.4-10.2) L [facility] GFR 6 ml/min/1.73m2 (>59) L [facility] [place] [facility] GFR ( AMER) 7 [...] for medication dosing. ID Date Data Source [id number] 08/04/2020 09:13:44 AM EST [facility] Name Value Range Interpretation Code Description Data Ale rce(s) Supporting Document(s) WBC 3.4 10*3/uL (4.1-11.0) L [facility] [place] [facility] [place] RBC 3.66 10*6/uL (4.60-6.10) L [facility] HGB 10.3 g/dL (13.5-18.0) L [facility] HCT 31.1 % (41.0-53.0) L [facility] PER[facility] AT [address] [place] [address] N [place] [address] MCV 85.0 fL (80.0-95.0) [facility] MCH 28.1 pg (27.0-32.0) [facility] MCHC 33.1 g/dL (32.0-36.0) [facility] RDW 15.4 % (10.5-14.5) H [facility] PLT 93 10*3/uL (150-450) L [facility] MPV 8.0 fL (7.1-10.7) [facility] ID Date Data Source [id number] 08/04/2020 06:41:54 AM EST [facility] Name Value Range Interpretation Code Description Data Ale rce(s) Supporting Document(s) POC NOVA GLU 148 mg/dL (70-99) H [facility] [place] [facility] [place] [facility] CLINICAL STAFF ID Date Data Source [id number] 08/04/2020 06:34:[address] [facility] Name Value Range Interpretation Code Description Data Ael rce(s) Supporting Document(s) EKG [facility] UWRTPu2gIiPRLzJmi0DtDrCiQYOfLM7zlbl1L4B2rVQrV4LegOZjr8haF6XlS2EhLPTtWOLOMC4TnYBw jb2 [file] O00zcULFLG/cemetery workers supervisor/J9DTcwukqAu1FbR5LBBV93x6yjvy [file] FAOAI0D= ID Date Data Source [id number] 08/04/2020 06:33:[address] [facility] Name Value Range Interpretation Code Description Data Ale rce(s) Supporting Document(s) EKG [facility] MOZVUz3zNfLDMqGkj9TiQqUnMKLoAO7fcds5B5W6pVVlZ1GdpAMur5nnR0WbZ0BgIVZsGRUKNB6LtYTw jb2 [file] he4aG1+pvoLdfqH8b530Cq4lZAC7m+zk2v1+pjQ Fs1vm7mbErW/hLgorSOsm3tWdbciQ8tqt0k1IPZAbp+I/JWDWquXbNRa/T8dkyaSsrKyacdLIO+boWSN LNkbngWTguaplAFGkSEA9pJ9Q8yAllZJDhtIYa0PqTHCwWZXoUHLRyxXViQoMuEPaQH1YfTgNcuAyDW5 AwTeZcbJ9QWzWGQ3OZ5CmIYPv1CZB1NZHh7vBD3NDk G/PXrCRMoVDvDfrP73+rjga7ZATSoQ9PGp/XLZkRz5MFzLDvjYrNB+dPcIKRhjFRc7MDCV2gvgoisdPl ZgrawNf7qb+LFN1MLPNMNUTcBeYcV9pYpCWR/SUDxtbXuJqF1pODg6auH7xzOrCm4NyJ/Simba/I2s17cM [file] GfKfvVcx/5HfYMaiqP/1tiTdD8mexyUj7uO+jose rafael/+ [file] MDAgbiAKMDAwMDAwMDUyMyAwMDAwMCBuIAowMDAwMD PhMcQjYMDcKOHuAQ1sNqImHYXsHZV5WXEvYAHcQZRckiLUCKBpEDIvGYy8AEDdHGNcLMRxIHmdHYDaBV OdHKA5RMImOJBeHU3kQfIaCUHzXVHyALOdZPNpYIKyxnVBBCIsTVNuHFF5XNMzNMTkBQPiIGobEZOzTL GzRnp3LCAqKATeWC0oBaTnMEHgPOW4PGUpKRQsCSTr jmJHGEFzPMV6SfQaKSWaFXUeDXVnGXrwGYAqOISzClT0EUYrWQNeBP7gVxGbBSDlXKT3ReCdCZEyCYXn jnRYIGMgZFReZAR3PbEtJYVuBNFwSGwyLUOdKAIqDYGxWCT4EJD9CPRxVcMeDDtgMATHZXtQL0GiclLz TuAGZ6tpKn6rCcUuOFPTP5Ymb9HlVTEhDWBPDo1+ZpM0WZD1jOTnAei6PbgjJnkcGPMARn== ID Date Data Source [id number] 08/04/2020 05:48:24 AM EST [facility] Name Value Range Interpretation Code Description Data Ale rce(s) Supporting Document(s) POC NOVA GLU 144 mg/dL (70-99) H [facility] [place] [place] [facility] CLINICAL STAFF ID Date Data Source [id number] 08/04/2020 07:10:40 AM EST [facility] Name Value Range Interpretation Code Description Data Ale rce(s) Supporting Document(s) SODIUM 133 mmol/L (136-145) L [facility] POTASSIUM 5.3 mmol/L (3.6-5.2) H [facility] CHLORIDE 93 mmol/L (100-108) L [facility] CO2 27 mmol/L (22-31) [facility] ANION GAP 13 mmol/L (7-16) [facility] UREA NITROGEN 48 mg/dL (7-24) H [facility] CREATININE 8.42 mg/dL (0.80-1.30) HH [facility] CONSISTENT WITH PREVIOUS RESULTS BUN/CREAT RATIO 5.7 RATIO (10.0-20.0) L [facility] GLUCOSE 132 mg/dL (70-99) H [facility] CALCIUM 8.2 mg/dL (8.4-10.2) L [facility] GFR 6 ml/min/1.73m2 (>59) L [facility] GFR ( AMER) 8 [...] for medication dosing. ID Date Data Source [id number] 08/04/2020 04:44:56 AM EST [facility] Name Value Range Interpretation Code Description Data Ale rce(s) Supporting Document(s) POC NOVA GLU 134 mg/dL (70-99) H [facility] [place] [facility] [place] [facility] CLINICAL STAFF ID Date Data Source [id number] 08/04/2020 03:46:23 AM EST [facility] Name Value Range Interpretation Code Description Data Ale rce(s) Supporting Document(s) POC NOVA GLU 132 mg/dL (70-99) H [facility] [place] [facility] [place] [facility] CLINICAL STAFF ID Date Data Source [id number] 08/04/2020 02:48:19 AM EST [facility] Name Value Range Interpretation Code Description Data Ale rce(s) Supporting Document(s) POC NOVA GLU 121 mg/dL (70-99) H [facility] [place] [facility] [place] [facility] CLINICAL STAFF ID Date Data Source [id number] 08/04/2020 02:13:21 AM EST [facility] Name Value Range Interpretation Code Description Data Ale rce(s) Supporting Document(s) POC NOVA GLU 111 mg/dL (70-99) H [facility] [place] [facility] [place] [facility] CLINICAL STAFF ID Date Data Source [id number] 08/04/2020 03:18:01 AM EST [facility] Name Value Range Interpretation Code Description Data Ale rce(s) Supporting Document(s) SODIUM 134 mmol/L (136-145) L [facility] POTASSIUM 5.1 mmol/L (3.6-5.2) [facility] CHLORIDE 95 mmol/L (100-108) L [facility] CO2 27 mmol/L (22-31) [facility] ANION GAP 12 mmol/L (7-16) [facility] UREA NITROGEN 44 mg/dL (7-24) H [facility] CREATININE 8.19 mg/dL (0.80-1.30) [facility] CONSISTENT WITH PREVIOUS RESULTS BUN/CREAT RATIO 5.4 RATIO (10.0-20.0) L [facility] GLUCOSE 90 mg/dL (70-99) [facility] CALCIUM 7.8 mg/dL (8.4-10.2) L [facility] [place] GFR 6 ml/min/1.73m2 (>59) L [facility] [place] [facility] GFR ( AMER) 8 ml/min/1.73m2 (>59) L [facility] GFR INTERPRETATION Lab [facility] [place] --NORMAL KIDNEY FUNCTION OR MILD DISEASE - GFR >OR= 60CHRONIC KIDNEY DISEASE - GFR 15 - 59RENAL FAILURE - GFR <15 Est. GFR calculation based on the MDRDstudy equation, which assumes a steadystate for creatinine. Est. GFR should notbe used for medication dosing. ID Date Data Source [id number] 08/04/2020 01:46:50 AM EST [facility] Name Value Range Interpretation Code Description Data Ale rce(s) Supporting Document(s) POC NOVA GLU 94 mg/dL (70-99) [facility] [place] [facility] [place] [facility] CLINICAL STAFF ID Date Data Source [id number] 08/04/2020 01:14:48 AM EST [facility] Name Value Range Interpretation Code Description Data Ale rce(s) Supporting Document(s) POC NOVA GLU 147 mg/dL (70-99) H [facility] [place] [facility] [place] [facility] CLINICAL STAFF ID Date Data Source [id number] 08/04/2020 02:12:46 AM EST [facility] Name Value Range Interpretation Code Description Data Ale rce(s) Supporting Document(s) CKMB 2.3 ng/mL (0.0-5.0) [facility] CKMB RELATIVE INDEX 2.6 {index_val} (0.0-4.0) [facility] ID Date Data Source [id number] 08/04/2020 01:58:06 AM EST [facility] Name Value Range Interpretation Code Description Data Ale rce(s) Supporting Document(s) CK 90 U/L (39-308) [facility] ID Date Data Source [id number] 08/03/2020 11:20:45 PM EST [facility] Name Value Range Interpretation Code Description Data Ale rce(s) Supporting Document(s) POC NOVA GLU 172 mg/dL (70-99) H [facility] [place] [facility] [place] [facility] CLINICAL STAFF ID Date Data Source [id number] 08/03/2020 06:15:08 PM EST [facility] Name Value Range Interpretation Code Description Data Ale rce(s) Supporting Document(s) POC NOVA GLU 109 mg/dL (70-99) [facility] [place] [facility] [place] [facility] CLINICAL STAFF ID Date Data Source [id number] 08/03/2020 10:39:34 PM EST [facility] Name Value Range Interpretation Code Description Data Ale rce(s) Supporting Document(s) SODIUM 133 mmol/L (136-145) L [facility] [place] POTASSIUM 6.2 mmol/L (3.6-5.2) [facility] [place] [facility] ALERTED CRITICAL RESULT [facility]([id number]) [place] [id number] ON 08/03/20 [place] [address] [place] [id number] CHLORIDE 98 mmol/L (100-108) L [facility] [place] CO2 27 mmol/L (22-31) [facility] ANION GAP 8 mmol/L (7-16) [facility] UREA NITROGEN 37 mg/dL (7-24) H [facility] [place] CREATININE 7.42 mg/dL (0.80-1.30) [facility] ALERTED CRITICAL RESULT [facility]([id number]) [place] [id number] ON 08/03/20 [place] [address] [place] [id number] BUN/CREAT RATIO 5.0 RATIO (10.0-20.0) L [facility] [place] GLUCOSE 110 mg/dL (70-99) H [facility] [place] CALCIUM 7.9 mg/dL (8.4-10.2) L [facility] [place] GFR 7 ml/min/1.73m2 (>59) L [facility] [place] [facility] GFR ( AMER) 9 ml/min/1.73m2 (>59) L [facility] GFR INTERPRETATION Lab [facility] [place] --NORMAL KIDNEY FUNCTION OR MILD DISEASE - GFR >OR= 60CHRONIC KIDNEY DISEASE - GFR 15 - 59RENAL FAILURE - GFR <15 Est. GFR calculation based on the MDRDstudy equation, which assumes a steadystate for creatinine. Est. GFR should notbe used for medication dosing. ID Date Data Source [id number] 08/03/2020 10:29:27 PM EST [facility] Name Value Range Interpretation Code Description Data Ale rce(s) Supporting Document(s) CKMB 1.9 ng/mL (0.0-5.0) [facility] CKMB RELATIVE INDEX 1.1 {index_val} (0.0-4.0) [facility] ID Date Data Source [id number] 08/03/2020 10:08:53 PM EST [facility] Name Value Range Interpretation Code Description Data Ale rce(s) Supporting Document(s) CK 166 U/L (39-308) [facility] ID Date Data Source [id number] 08/03/2020 02:00:35 PM EST [facility] Name Value Range Interpretation Code Description Data Ale rce(s) Supporting Document(s) POC NOVA GLU 76 mg/dL (70-99) [facility] [place] [facility] [place] [facility] CLINICAL STAFF ID Date Data Source [id number] 08/03/2020 01:36:[address] [facility] Name Value Range Interpretation Code Description Data Ale rce(s) Supporting Document(s) &PDF [facility] MTFCSt5aAxIKNeXp66/PSFwuCJZnk9HlFSmeWNn0BLzbLFEeU2QsvRtqNFoWTdJQB6xhQa5STYIYANYt 0b3 [file] GSPZ4XaXWTEjLWEYHTCE0sHPIYJYnnSMRAl4OGfSFX AAjKq+rQXvhbIeNITUZBrCYl9oL9zXqhuq9HZQPHRJxMUthbFMgpb3//DlBfaGWuVH5tLSAATmaJJH5M sAAAAAAAAAAAAAAAAAAAAAAAAAAAAAAAAAAAAAAAAAAAAAAAAAAAAAAAAAAAAAAAAAAAAAAAAAAAAAAA AAAAAAAAAAAAAAAAAAAAAAAAAAAAAAAAAAAAAAAAAA AAAAAAAAAAAAAAAAAAAAAAAAAAAAAAAAAAAAAAAAAAAAAAAAAAAAAAAAAAAAAAAAAAAAAAAAAAAAAAAA AAAAAAAAAAAAAAAAAAAAAAAAAAAAAAAAAAAAAAAAAAAAAAAAAAAAAAAAAAAAAAAAAAAAAAAAAAAAAAAA AAAAAAAAAAAAAAAAAAAAAAAAAAAAAAAAAAAAAAAAAA AAAAAAAAAAAAAAAAAAAAAAAAAAAAAAAAAAAAAAAAAAAAAAAAAAAAAAAAAAAAAAAAAAAAAAAAAAAAAAAA VJPUUTMOHBRWLJLZEATDSXJINLKBQPxO1ZsDBVWFvallUtiFJgVG3DAzDoTA2ryw8ZQfwbBDBpGiiTMy g8GZvaER7IrWOoX8dMTojvN9DaU6UrwSbsEJ5WzIUc GP4NFA1mJ9hoUgKeGhz2l4GjnzNekSQuueRspUN2D1UpjR6lY1NnY9ZkTUQ2bXGuF8QduZ4TzXS0nLH1 GUChENZdO6i6FBWpDT9UKR1ivWfsVAH2NjAnAzoidGZeXPgdGfrzpABHIWEdSOBqLFb+En2Gl5GgDDSh TOtPvf9kS4ZlJ17e27RuUTwwhVh6AD9REevefoJcNe piN50D5pDozVE08yezQgMet6M5by5AZYhymC4rtjWR1LXvyIN0HFG/7sUYyVBEalPLYU6FVMMhcydr42 6MJ4JYJGUz6ZAjT5bbUwG6EE8jxl5XjB+DQvRHoDp3QgdYi62om+/Z0P929/84ork7QQkPZJHSGQDRDJ AAAAAAAAAAAAAA+wF5h5SJKTszl5K1OlOjTDBhtyYF MUmSZJggCNztxgKAHQR+6ik33qAfeasbanal5b5SJIsKHiIcN7WY2E0KNBh536F8O4v3gzTkkFHEAZTN TzFCEEZj9Au3BAGB/SG8baCK5B+1MwhfXqioF7K48pJV8pc6FiWFN7S7kTifr3GetGG0Ahk4vcWXycAx WPjZP+5CLRt1BZuFJ4ejaOZP6/uzKhQpzfF7wua1EZ yAbkjNfC2U/WbqmRq0XHnuIphtQrX8DEqK9/KKR8DNDMiUSut/+9l1FH8dmk5wtyRyBYNbe5Z5C1h4kP 7cvlg5hZ/6OzqtY3UpZFlmAc6BylT163PxNOOw5c+Ueux9nHk6gx2v08lHhy5nOf5Ia7mJTzg8nvLufP 8rP/bqpwQYtffR8S4X1xvp6d/n+jTzddTH2qrHIo8E 07zipGKaiwkIqxlp/gJxguT+iMVFGl4bM+047TICbrr4nl6MOK9pxpYR4t+8/MADD6+cemetery workers supervisor/bYY49//fH6 [file] IPAmXRa0UYjzCOQLXd6K ID Date Data Source [id number] 08/03/2020 08:47:[address] [facility] Name Value Range Interpretation Code Description Data Ale rce(s) Supporting Document(s) EKG [facility] AEOFMx9rRsRYDvPsv0BeRpVlOFGxSQ6rsbl7T7M2vXZzO6SnuJDhn9qpE4BdF4ZgQIThAZYAYY0GmZAg jb2 [file] A2NQyaeV+qv8pOFuWYlvUbiBZq8yS3BFIx2Fn3vIno3J/Juárez/ytzHaiuJYecdZTDxa1sDA8ij1OIvGNQN [file] GPf4v/sales merchandising specialist/pfess9/K/ooOF41T8oU/1ES2qCPbg5SISKk7W4gA5nivYXDZk87EBT+dIwje8gl3kpmbLq [file] Animal Shelter Supervisor+JpZh6aOm/n0QI2CovQaeor6iCi1de2SmEyH5R+k [file] 3P/0381KeSs5131Tch49lskd85lZqz3J260C4i59/24NNv2xkvmb+nOiH9vC/vn357/w7XT9+UtBlf8d /C52rgYcfsgOcq5vh71KFdY/z2kf6q1V2Rqwfuw6wPzGzGbh/ul4f/e//LHyf/Cl0smlE48q6Cfog5e4 foFNT+9vMj1/F4HF4//ETngCynv4wZ/5d79WwOCt// +Pd7Nxw/vnjrsoq10Bx4WGnxmQe2wW+49BxRN4O+fP/+3f9+/YJe8CBYe8LZg7213wR66v+/nmbMDxe4 5TnUbvPxf608+J/3S1g+/EV9YEkaj2aMc2ggNS9ldG1Uf/38/oE72YoyWLXUgbv3Lh0rgsIczQh2atgd m85m786i6p9jMB0/2Dd8rRq/L4O235FGSO5zr1RoLQ AjDxUxPX1ikvlyVFOwPW6pfld4R7UaxKpqIRmRHGNcRm2nqMKcMV4ZKFE0VKneATJxEDOsU6UcaH3cJ1 5oeBQpRrPgKVPYWF6HhbT2ITO0AMG3NXJuFyLbZCQlPY44KSZhJXEXLo7imrVpXgkAIrFgSJ0pvdk4T4 C5wFGrX224lXutwsSzFP4Jb7XecAIiSD8XoHInvVGt SLKnTXXaQ0irs9DxLLqcGSRAOc5vcxLjVzpQIwPwEZ2drzi4K4F2cKywjeKrDDEOPLckLmmbYZ5qaQoh pshkO0CdmHBsJLPmR9ZxYNDhb63ABUVqLOdNRzLtBuLfWpG6EHp3HqnaSwBbAYXvZPRuAKVrNW4IdMLu BXXbJRDFENciQzpeYLMjuM0pyIDEd1FuKE2FGlGAYt hjQf6AZTLHDTRxPQW4ZKThHVhsX3W5JlhbQ9YvDE5HD8QdXOYhZGZHPOZolpUrDB8NimQwuW8mUDwQVK HNICyXPPhsVuU4d45ibhINWYVpLZAhSBcuOAUcBRSsRIByHCUfHQLcLQSzXCSjRT3FX4UwCRXtSIYRMC B1u9JbNFOkupldwaenGu7oszYrHua+ZyglTWRvg7Hr WQbeH1Q1dINsU0IcY4UhYE0CiACsBWsoRWEoKIKjUVDvI328jtHlNI6+YH6tt8LkTkvcJSNYRPKvJHFz ODSqWXZ4ZjNdCBRjIQWiSKJmZiJ5DzYyXhMNPKUrSYR4BrUlQAVqZEAvPZLeUQngFLGfVSTuHlfrCRZh KCTsUY7sAuEoZRLnDEA8AGerYWOkNBGmozRPJSEnFV WhJJKsKBD2PCDyDIPgQMfaWTNkPBWtLYJ5ATZtOGQdUF7dDuDiPBUpZOCbIzfhZJUeAJEubiWGBAWsNX OmYEB9RiEoKRLxEZCvVFxrMABxEEIyYod8KPRhXCDzDU1gHvAwYWUmOGW2TNhuYLFlXOMkkaQQZSNrAI AwMDUyMyAwMDAwMCBuIAowMDAwMDAwNjQxIDAwMDAw SJ1pHlQkNRQmSHV5KLLfDHHtGHPjezPSTEMiUPAgHFa6ULZjNXWfWTTvIWbzJFVcVERnUHE9EWBfGVAj CG6yAuZsZXOmGIVdRQBlFYDbFNClcxPVEKYwRMJkBKV2DPArPISsZGPcPHhwNICrZFZyTlf7YATmQJZh CY2uPyRuFDHtFPW0LPAgWBPmUUPbuzLILQTlJZB2Fi A7BUMkUPSqOQNgVZvvYZKwQDNbFfK7WXTiZMObHR1kBgUiQBLwYFK5FmEyXEMtIOVgrrPTUFBrUOItWE R3ChAmZOAbRXHrTQvrPCFlKBFoFWHgJZN5ZDL5JMHqAnRsOXiqXPAEDKlZN7KwlfEgDqYGA0hzYy9wYs OaMEZDZ5Vbo7NmWYOiHLBRXc1+EhL8ZVO0xCBqKfe9NmL7SPakHSRHWy== ID Date Data Source [id number] 07/29/2020 12:00:00 AM EST [facility] Name Value Range Interpretation Code Description Data Ale rce(s) Supporting Document(s) SARS coronavirus 2 RNA [Presence] in Res piratory specimen by ROZINA with probe detection [facility] This lab was ordered by [facility] and reported by [employer]. ID Date Data Source [id number] 07/23/2020 10:19:00 AM EST [facility] Name Value Range Interpretation Code Description Data Ale rce(s) Supporting Document(s) Gwfgu-2-Enpnsbzhrub [Mass/volume] in Serum or Plasma 3.8 ng/mL Normal (applies to non-numeric results) [facility] ([facility], ) THE AFP ASSAY IS PERFORMED ON THE GlySureAUR BY CHEMILUMINESCENCE AND SHOULD NOT BE COMPARED INTERCHANGEABLY WITH OTHER METHODS. IT SHOULD NOT BE USED ALONE A SCREENING TEST OR DIAGNOSIS FOR THE PRESENCE OR ABSENCE OF MALIGNANT DISEASE. THESE RESULTS ARE NOT INTERPRETABLE IN FEMALES. PREDICTIONS OF DISEASE RECURRENCE SHOULD NOT BE BASED SOLELY ON VALUES OBTAINED FROM SERIAL PATIENT SERUM VALUES. ID Date Data Source [id number] 07/23/2020 10:19:00 AM EST [facility] ([facility], ) Name Value Range Interpretation Code Description Data Ale rce(s) Supporting Document(s) Ast/Sgot 32 U/L 7-37 Normal (applies to non-numeric resul ts) [facility], ) Alt/SGPT 27 U/L 12-78 Normal (applies to non-numeric resul ts) [facility], ) Bilirubin,Total 0.8 mg/dL 0.2-1.0 Normal (applies to non-numeric results) [facility] ([facility], ) Bilirubin,Direct 0.2 mg/dL 0.0-0.2 Normal (applies to non-numeric results) [facility] ([facility]) Alkaline Phosphatase 137 U/L 45-117 Above high normal [facility] ([facility]) Albumin/Globulin Ratio 0.6 Normal (applies to non-n umeric results) [facility] ([facility]) Total Protein 7.9 GM/DL 6.4-8.2 Normal (applies to non-numeric re sults) [facility] ([facility]) Albumin 3.1 GM/DL 3.2-5.2 Below low normal [facility] ( [facility]) ID Date Data Source [id number] 01/20/2020 03:08:00 PM EDT [facility] INFORMATIONPatient MRN Name Date of Age Gend*PT [id number] Kalyani Tyson 1950 70 years M OPPT Location Admission Date/Time Visit ID Attending Provider --- --- --- Maikel Gamboa DO([id number]) EPI ID CSN Admitting Provider [id number] ---OUTPATIENT / OBSERVATIONAL SURGICAL OR INVASIVE PROCEDUREName: Kalyani Tyson : 1950 Sex: male Care [facility] Physician: Dr. Gamboa.HISTORY OF PRESENT ILLNESS: 70 [...] RIGHT ; Surgeon: Makayla Krishnan MD; [facility]; Service: Vascular; Laterality:Right; CATARACT EXTRACTION, BILATERAL CORONARY ARTERY BYPASS GRAFT KNEE SURGERYALLERGIES: No Known Drug AllergiesMEDICATIONS:Prior to Admission medicationsMedication Sig Start Date End Date Taking? Authorizing ProviderB Xqcxzud-F-Sjpxn Acid (NEPHRO-BARBARA PO) Take 1 tablet by [...] Historical Provider, vitamin D, Ergocalciferol, 1.25 MG (63563 UT) CAPS Take 1 capsule by mouth oncea week Historical Provider, Bonitaspirin 81 MG chewable tablet Chew 81 mg daily 01/20/20 Historical Provider, Bonitatorvastatin (LIPITOR) 20 MG tablet Take 20 mg by mouth daily 01/20/20Historical Provider, ISABELA Mcbxidi-D-Yaoki Acid (CHE-BARBARA PO) daily 09/25/17 01/20/20 Historical Provider,VAISHALIalcium Acetate, Phos Binder, (PHOSLO) 667 MG CAPS 3 (three) times a day Historical Provider, VAISHALIholecalciferol (VITAMIN D3) 1.25 MG (03261 UT) CAPS once a week 09/25/17 01/20/20Historical [...] without cervicaladenopathy. No thyromegaly.MENTAL / NEUROLOGICAL STATUS: [id number]: Clear to auscultation. No wheezes, rhonchi or [...] parts of this document, were dictated using [employer] software. A reasonable attempt at proofreading has beenmade to minimize errors. Please call with any questions or corrections.* Name Value Range Interpretation Code Description Data Ale rce(s) Supporting Document(s) ID Date Data Source [id number] 01/20/2020 02:39:[address] [facility] Name Value Range Interpretation Code Description Data Ale rce(s) Supporting Document(s) EKG [facility] SEEZWg3lYyVSPfMtq8WeMgQpWRCyJE8yyyl4Y6C6rBJoB5QebKCbv9wiC7MrD9NuHZJlDAUMOP1EkEXh jb2 [file] Xz8ZP//9+sarbjit+H/++q9/++t/+dv/8aeW58/f/u+//tvf/fjvt8Q7n8/Mp3z+92//+nyyd16QP//8889J 9vnz7z/+/Gfq381ZUFV+IICrbFlggQr96bgd41fKSf IrilrZhsmnkk0EySPOVKKtlNXVKZcsvLSPklbuywuXUH+OtdKii0C9mCleusjOFB+VomXkq9N0oNxvbs qVXK+TxsFtv4t50HyfthbOJI+ChkGtm0d68RluwbjVIC+GtcAvg5n22NwljijHBB+VcjTcc9K3jOftnr q1XK+XreKwi3X0eXkpznv8TF+GwgLwr3I1mHkfvvk8 XK+VpxVfa3273Bgsxed1EW+fNYsMEe03oblZwPcdE0r4ib5PHY7UrvzQdEyd83C6Yd2ZOT8XvujGdbjS PdPtiVMsxXgA5Car42l6nxpMpSJtmMuA2Phj53r9mxnHiYMveEgZ9Wys0/qa3OPpaJ9Q5Qi1Uuj5Udqs C/XqhH6M2Xi2Heu9PdwsA/MvuD7A1Yn8Dyt0Pp+zF6 evXK+Kvf7gl8500NfefKzoWB+Kvn8mu8223OezjUneZF+Jgf7mg8449j44EJ5FNaCfq1y1+UbuB08Al6 fs/IH9do1u02iE0NV7Lg+endoscopy technican+yVrlpXE60gyIEk+knj90RlNijNhTmuXc3Pfj1LoMFoakjcSUTywxJpg [file] VN0Sx2fOo2raoAC7cS8bazN7mywMqis+wO18Ikx/cemetery workers supervisor [file] AwMDUyMyAwMDAwMCBuIAowMDAwMDAwNjQxIDAwMDAw DI7dEfXtHKIvDKV2VIJoKQQcQNNxllBORGFyGVExMVv9SVOqTARfUTSdSMbeHSWeQYDfZHD9LLHvBFYc RW9dDhSkRARjHNBfIBSzRGRjXESkehAEHXDlXBXqYOO7FOXiOKMyQNPaJEwxLJTfTJDcPla0PQXgAARb ED7rCyCvFQPhJPX7TWHoFJNcGRTpvvSHJWElNAA3WG rrCAXbHAUrXRXsWAisZNYuVKVrLgE9SLLxMYApDN9rLgXlCLCtEEB8TgOkHELvPXFnouBLQRAgEMFzKN U0SzSzQKLhETPmBMvvHWPgTGOoDIWuOPM6LMX9PKMpMfHbNXnySLLXKWeUC8NnohDhFrASA2meNb2xJz NgKJVSC2Oif5OuMKQgJETQBm6+OzT1KAB7aBPfQlf8STQ2KZarQFMZKc== ID Date Data Source [id number] 01/20/2020 07:45:04 PM EDT [facility] Name Value Range Interpretation Code Description Data Ale rce(s) Supporting Document(s) SODIUM 136 mmol/L (136-145) [facility] POTASSIUM 4.1 mmol/L (3.6-5.2) [facility] CHLORIDE 97 mmol/L (100-108) L [facility] CO2 32 mmol/L (22-31) H [facility] ANION GAP 7 mmol/L (7-16) [facility] UREA NITROGEN 25 mg/dL (7-24) [facility] CREATININE 6.14 mg/dL (0.80-1.30) HH [facility] RESULT VERIFIED BY REPEAT TESTING.RESULT (S) CALLED TO AND READ BACK BY DR TABARES AT [id number] ON [id number] AT 7742 [place] [address] BUN/CREAT RATIO 4.1 RATIO (10.0-20.0) L [facility] GLUCOSE 129 mg/dL (70-99) [facility] CALCIUM 8.4 mg/dL (8.4-10.2) [facility] GFR 9 ml/min/1.73m2 (>59) L [facility] GFR ( AMER) 11 ml/min/1.73m2 (>59) L [facility] GFR INTERPRETATION [facility] --NORMAL KIDNEY FUNCTION OR MILD DISEASE - GFR >OR= 60CHRONIC KIDNEY DISEASE - GFR 15 - 59RENAL FAILURE - GFR <15 Est. GFR calculation based on the MDRDstudy equation, which assumes a steadystate for creatinine. Est. GFR should notbe used for medication dosing. ID Date Data Source [id number] 01/20/2020 06:20:23 PM EDT [facility] Name Value Range Interpretation Code Description Data Ale rce(s) Supporting Document(s) HEMOGLOBIN A1C @ 8.1 % (4.0-6.0) H [facility] Performed using [employer] immunoassa y.Care must be taken when interpreting WuE2cgzrzgnv in patients with a hemoglobin variantor decreased erythrocyte lifespan. Values 5.7 - 6.4% suggest prediabetes.Values >=6.5% are diagnostic for diabetes.REFERENCE: DIABETES CARE 2018: 41(S13-S27). EST AVERAGE GLUCOSE 186 mg/dL [facility] ID Date Data Source [id number] 01/20/2020 05:24:10 PM EDT [facility] Name Value Range Interpretation Code Description Data Ale rce(s) Supporting Document(s) WBC 3.7 10*3/uL (4.1-11.0) L [facility] RBC 4.22 10*6/uL (4.60-6.10) L [facility] HGB 12.0 g/dL (13.5-18.0) L [facility] HCT 36.5 % (41.0-53.0) [facility] MCV 86.5 fL (80.0-95.0) [facility] MCH 28.6 pg (27.0-32.0) [facility] MCHC 33.0 g/dL (32.0-36.0) [facility] RDW 14.8 % (10.5-14.5) H [facility] PLT 79 10*3/uL (150-450) L [facility] MPV 8.5 fL (7.1-10.7) [facility] ID Date Data Source [id number] 10/15/2019 05:55:[address] [facility] Name Value Range Interpretation Code Description Data Ale rce(s) Supporting Document(s) &PDF [facility] CVEFIn1fMpWAFgXl08/INIkzMUJgz6VdGWriKYp3URwvEHXaM6AfsKreSFjTZyHGO4ttRm6YXUXFPGEl vci [file] QSEgT3IzKIM2NNw+ES8vZJd+Yl7Ub8UjraH3nfWrIJhjMMmkEf5KJHQBH5RACb== Procedure Social History Code Duration Value Status Description Data Source(s ) Smoking 09/28/2020 12:00:00 AM EST Never Smoker completed Never S moker eCW1 ([facility]) Smoking 09/14/2020 12:00:00 AM EST Never Smoker completed Never S moker eCW1 ([facility]) Alcohol intake 08/07/2020 12:00:00 AM EST Yes completed [facility] Smoking 08/07/2020 12:00:00 AM EST Former smoker completed Former smoker [facility] Alcohol intake 08/03/2020 12:00:00 AM EST Yes completed [facility] Smoking 08/03/2020 12:00:00 AM EST Former smoker completed Former smoker [facility] Smoking 07/13/2020 12:00:00 AM EST Never Smoker completed Never S moker eCW1 ([facility]) Smoking 07/13/2020 12:00:00 AM EST Never Smoker completed Never S moker eCW1 ([facility]) Smoking 06/29/2020 12:00:00 AM EST Never Smoker completed Never S moker eCW1 ([facility]) Smoking 06/29/2020 12:00:00 AM EST Never Smoker completed Never S moker eCW1 ([facility]) Smoking 06/08/2020 12:00:00 AM EDT Never Smoker completed Never S moker eCW1 ([facility]) Smoking 06/08/2020 12:00:00 AM EDT Never Smoker completed Never S moker eCW1 ([facility]) Smoking 06/08/2020 12:00:00 AM EDT Never Smoker completed Never S moker eCW1 ([facility]) Smoking 06/08/2020 12:00:00 AM EDT Never Smoker completed Never S moker eCW1 ([facility]) Smoking 03/02/2020 12:00:00 AM EDT Never Smoker completed Never S moker eCW1 ([facility]) Alcohol intake 01/20/2020 12:00:[address] [facility] Smoking 01/20/2020 12:00:00 AM EDT Never smoker completed Never s moker [facility] Vital Signs ID Date Data Source UNK Name Value Range Interpretation Code Description Data Source(s) Body surface area Derived from formula 2.23 m2 2.23 m2 [facility] ([facility]) Body weight 111.586 kg 111.586 kg [facility] ([facility]) [place] body weight 154 [lb_av] 154 [lb_av] [facility] Body mass index (BMI) [Ratio] 37.4 kg/m2 37.4 k g/m2 [facility] ([facility]) Body weight 246.00 [lb_av] 246.00 [lb_av] [facility] Body height 68 [in_i] 68 [in_i] [facility] ([facility]) 5'8" Diastolic blood pressure 80 mm[Hg] 80 mm[Hg] [facility] ([facility]) Systolic blood pressure 140 mm[Hg] 140 mm[Hg] [facility] ([facility]) Diastolic blood pressure 64 mm[Hg] 64 mm[Hg] eCW1 ([facility]) Systolic blood pressure 111 mm[Hg] 111 mm[Hg] e CW1 ([facility]) Body temperature 97 [degF] 97 [degF] eCW1 ([facility]) Respiratory rate 18 /min 18 /min eCW1 ([facility]) Heart rate 64 /min 64 /min eCW1 ([facility]) Body mass index (BMI) [Ratio] 36.02 kg/m2 36.02 kg/m2 eCW1 ([facility]) Body height [in_i] eCW1 ([facility]) Body weight kg eCW1 ([facility]) Body weight 230 [lb_av] 230 [lb_av] eCW1 ([facility]) Body mass index (BMI) [Ratio] 38.01 kg/m2 38.01 kg/m2 [facility] Body weight 113.[address] [facility] Body height 172.[address] [facility] Respiratory rate 16 /min 16 /min [facility] Heart rate 84 /min 84 /min [facility] Diastolic blood pressure 60 mm[Hg] 60 mm[Hg] [facility] Systolic blood pressure 106 mm[Hg] 106 mm[Hg] [facility] Oxygen saturation in Arterial blood by Pulse oximetry 99 % 99 % [facility] Respiratory rate 16 /min 16 /min [facility] Heart rate 90 /min 90 /min [facility] Diastolic blood pressure 63 mm[Hg] 63 mm[Hg] [facility] Systolic blood pressure 101 mm[Hg] 101 mm[Hg] [facility] Body mass index (BMI) [Ratio] 38.05 kg/m2 38.05 kg/m2 [facility] Body weight 113.[address] [facility] post Wt. Body temperature 36.56 Temitope 36.56 Temitope [facility] Body height 172.[address] [facility] Diastolic blood pressure 59 mm[Hg] 59 mm[Hg] eCW1 ([facility]) Systolic blood pressure 125 mm[Hg] 125 mm[Hg] e CW1 ([facility]) Body temperature 97.2 [degF] 97.2 [degF] W1 ( [facility]) Respiratory rate 16 /min 16 /min W1 ([facility]) Heart rate 56 /min 56 /min eCW1 ([facility]) Body mass index (BMI) [Ratio] 37.43 kg/m2 37.43 kg/m2 eCW1 ([facility]) Body height [in_i] eCW1 ([facility]) Body weight 239 [lb_av] 239 [lb_av] eCW1 ([facility]) Diastolic blood pressure 66 mm[Hg] 66 mm[Hg] eCW1 ([facility]) Systolic blood pressure 124 mm[Hg] 124 mm[Hg] e CW1 ([facility]) Body temperature 98 [degF] 98 [degF] eCW1 ([facility]) Respiratory rate 16 /min 16 /min eCW1 ([facility]) Heart rate 87 /min 87 /min eCW1 ([facility]) Body mass index (BMI) [Ratio] 37.43 kg/m2 37.43 kg/m2 eCW1 ([facility]) Body height [in_i] eCW1 ([facility]) Body weight 239 [lb_av] 239 [lb_av] eCW1 ([facility]) Diastolic blood pressure mm[Hg] eCW1 ([facility]) Systolic blood pressure 130 mm[Hg] 130 mm[Hg] e CW1 ([facility]) Body temperature 97.7 [degF] 97.7 [degF] eCW1 ( [facility]) Respiratory rate 17 /min 17 /min eCW1 ([facility]) Heart rate 86 /min 86 /min eCW1 ([facility]) Body mass index (BMI) [Ratio] 37.43 kg/m2 37.43 kg/m2 eCW1 ([facility]) Body height [in_i] eCW1 ([facility]) Body weight kg eCW1 ([facility]) Body weight 239 [lb_av] 239 [lb_av] eCW1 ([facility]) Diastolic blood pressure 60 mm[Hg] 60 mm[Hg] eCW1 ([facility]) Systolic blood pressure 120 mm[Hg] 120 mm[Hg] e CW1 ([facility]) Body temperature 98.5 [degF] 98.5 [degF] eCW1 ( [facility]) Respiratory rate 18 /min 18 /min eCW1 ([facility]) Heart rate 87 /min 87 /min eCW1 ([facility]) Body mass index (BMI) [Ratio] 37.43 kg/m2 37.43 kg/m2 eCW1 ([facility]) Body height [in_i] eCW1 ([facility]) Body weight kg eCW1 ([facility]) Body weight 239 [lb_av] 239 [lb_av] eCW1 ([facility]) Diastolic blood pressure 55 mm[Hg] 55 mm[Hg] eCW1 ([facility]) Systolic blood pressure 106 mm[Hg] 106 mm[Hg] e CW1 ([facility]) Body temperature 98.5 [degF] 98.5 [degF] eCW1 ( [facility]) Respiratory rate 19 /min 19 /min eCW1 ([facility]) Heart rate 88 /min 88 /min eCW1 ([facility]) Body mass index (BMI) [Ratio] 37.55 kg/m2 37.55 kg/m2 W1 ([facility]) Body height [in_i] eCW1 ([facility]) Body weight 239.8 [lb_av] 239.8 [lb_av] eCW1 ([facility]) Body surface area Derived from formula 2.24 m2 2.24 m2 [facility] ([facility] ) Body weight 112.096 kg 112.096 kg [facility] ([facility] ) [place] body weight 154 [lb_av] 154 [lb_av] [facility] T ([facility], ) Body mass index (BMI) [Ratio] 37.6 kg/m2 37.6 k g/m2 [facility] ([facility] ) Body weight 247.12 [lb_av] 247.12 [lb_av] [facility] T ([facility]) Body height 68 [in_i] 68 [in_i] [facility] 5'8" Heart rate 87 /min 87 /min [facility] ([facility]) Diastolic blood pressure 69 mm[Hg] 69 mm[Hg] [facility] ([facility]) Systolic blood pressure 126 mm[Hg] 126 mm[Hg] [facility] ([facility]) Body weight 112.493 kg 112.493 kg [facility] ([facility]) Body mass index (BMI) [Ratio] 37.7 kg/m2 37.7 k g/m2 [facility] ([facility]) Body weight 248.00 [lb_av] 248.00 [lb_av] [facility] T ([facility]) Body height 68 [in_i] 68 [in_i] [facility] 5'8" Diastolic blood pressure 71 mm[Hg] 71 mm[Hg] [facility] ([facility]) Systolic blood pressure 124 mm[Hg] 124 mm[Hg] [facility] ([facility]) Body mass index (BMI) [Ratio] 37.9 kg/m2 37.9 k g/m2 [facility] ([facility] Heart rate 70 /min 70 /min [facility] ([facility] Diastolic blood pressure 73 mm[Hg] 73 mm[Hg] [facility] ([facility] Systolic blood pressure 125 mm[Hg] 125 mm[Hg] [facility] ([facility] Body weight 249.00 [lb_av] 249.00 [lb_av] [facility] ([facility] Body height 68 [in_i] 68 [in_i] [facility] ([facility] 5'8" Diastolic blood pressure 74 mm[Hg] 74 mm[Hg] eCW1 ([facility]) Systolic blood pressure 128 mm[Hg] 128 mm[Hg] e CW1 ([facility]) Body temperature 98.2 [degF] 98.2 [degF] eCW1 ( [facility]) Respiratory rate 20 /min 20 /min eCW1 ([facility]) Heart rate 81 /min 81 /min eCW1 ([facility]) Body mass index (BMI) [Ratio] 38.21 kg/m2 38.21 kg/m2 eCW1 ([facility]) Body height [in_i] eCW1 ([facility]) Body weight 244 [lb_av] 244 [lb_av] eCW1 ([facility]) Oxygen saturation in Arterial blood by Pulse oximetry 99 % 99 % [facility] Body mass index (BMI) [Ratio] 37.25 kg/m2 37.25 kg/m2 [facility] Body weight 111.[address] [facility] Body height 172.[address] [facility] Heart rate 92 /min 92 /min [facility] Diastolic blood pressure 64 mm[Hg] 64 mm[Hg] [facility] Systolic blood pressure 117 mm[Hg] 117 mm[Hg] [facility] Body weight 111.586 kg 111.586 kg [facility] ) Body mass index (BMI) [Ratio] 37.4 kg/m2 37.4 k g/m2 [facility] ([facility], ) Body weight 246.00 [lb_av] 246.00 [lb_av] [facility] ([facility], ) Body height 68 [in_i] 68 [in_i] [facility] ([facility], ) 5'8" Diastolic blood pressure 58 mm[Hg] 58 mm[Hg] [facility] Systolic blood pressure 116 mm[Hg] 116 mm[Hg] [facility] ([facility]) Body weight 110.225 kg 110.225 kg [facility] ([facility]) Body mass index (BMI) [Ratio] 36.9 kg/m2 36.9 k g/m2 [facility] ([facility]) Body weight 243.00 [lb_av] 243.00 [lb_av] [facility] Body height 68 [in_i] 68 [in_i] [facility] ([facility]) 5'8" Diastolic blood pressure 67 mm[Hg] 67 mm[Hg] [facility] [facility] Systolic blood pressure 109 mm[Hg] 109 mm[Hg] [facility]) Patient Treatment Plan of Care Planned Activity Planned Date Details Description Data Source (s) ezetimibe 10 MG Oral Tablet 08/09/2020 12:00:00 AM [facility] clopidogrel 75 MG Oral Tablet 08/04/2020 12:00:00 AM [facility] atorvastatin 40 MG Oral Tablet 08/04/2020 12:00:00 AM [facility] Aspirin 81 MG Chewable Tablet 08/04/2020 12:00:00 AM [facility] clopidogrel 75 MG Oral Tablet 06/08/2020 12:00:[address] [facility] Propranolol Hydrochloride 10 MG Oral Tablet 05/28/2020 12:00:[address] [facility] b complex-vitamin c-folic acid (NEPHRO-BARBARA) 0.8 MG TA BS 05/28/2020 12:00:00 AM EDT [facility] sildenafil 50 MG Oral Tablet 05/13/2020 12:00:[address] [facility]
--- OUTSIDE RECORDS SUMMARY | 2020-10-14 23:35 | CCD ---
Author Author [facility] Organization [facility] Address Unknown Phone Unavailable Care Team Providers Care Mold Forms Builder Name Role Phone Nicki Dooley MD Unavailable [...] Unavailable Unavailable YUDITHRALSylvia Clayton MD Unavailable Unavailable ySlvia SILVA MD Unavailable Unavailable Sylvia SILVA MD [...] Ziad MD Unavailable Unavailable Saundra, N Maikel ROTOR PILOT Unavailable Unavailable Saundra, N Maikel ROTOR PILOT Unavailable Unavailable Aurora, N Maikel ROTOR PILOT Unavailable Unavailable Aurora, N Maikel ROTOR PILOT Unavailable Unavailable Saundra, N Maikel ROTOR PILOT Unavailable Unavailable Saundra, N Maikel ROTOR PILOT Unavailable Unavailable Saundra, N Maikel ROTOR PILOT Unavailable Unavailable Aurora, N Maikel ROTOR PILOT Unavailable Unavailable Saundra, N Maikel ROTOR PILOT Unavailable Unavailable Saundra, N Maikel ROTOR PILOT Unavailable Unavailable Saundra, N Maikel ROTOR PILOT Unavailable Unavailable Aurora, N Maikel ROTOR PILOT Unavailable Unavailable Saundra, N Maikel ROTOR PILOT Unavailable Unavailable Saundra, N Maikel ROTOR PILOT Unavailable Unavailable Aurora, N Maikel ROTOR PILOT Unavailable Unavailable Saundra, N Maikel ROTOR PILOT Unavailable Unavailable Saundra, N Maikel ROTOR PILOT Unavailable Unavailable Aurora, N Maikel ROTOR PILOT Unavailable Unavailable Saundra, N Maikel ROTOR PILOT Unavailable Unavailable Aurora, N Maikel ROTOR PILOT Unavailable Unavailable Aurora, N Maikel ROTOR PILOT Unavailable Unavailable Saundra, N Maikel ROTOR PILOT Unavailable Unavailable Aurora, N Maikel ROTOR PILOT Unavailable Unavailable Saundra, N Maikel ROTOR PILOT Unavailable Unavailable Saundra, N Maikel ROTOR PILOT Unavailable Unavailable Saundra, N Maikel ROTOR PILOT Unavailable Unavailable Saundra, N Maikel ROTOR PILOT Unavailable Unavailable Saundra, N Maikel ROTOR PILOT Unavailable Unavailable Aurora, N Maikel ROTOR PILOT Unavailable Unavailable Saundra, N Maikel ROTOR PILOT Unavailable Unavailable Aurora, N Maikel ROTOR PILOT Unavailable Unavailable MD RACHID GARZA Unavailable Unavailable Sun, Maikel DO Unavailable Unavailable Sun, Maikel DO Unavailable Unavailable Sun, Maikel DO Unavailable Unavailable Sun, Maikle DO Unavailable Unavailable Sun, Maikel DO Unavailable [...] Unavailable Sylvia, V RU PA-C Unavailable Unavailable [place], V RU PA-C Unavailable Unavailable Sylvia, V RU PA-C Unavailable Unavailable [place], V RU PA-C Unavailable Unavailable [place], V RU PA-C Unavailable Unavailable Re-disclosure Warning [...] is protected by Article 27-F of the [facility] Public Health law. If you continue you may have access to information: Regarding HIV / AIDS; Provided by facilities licensed or operated by the [facility] Office of Mental Health; or Provided by the [facility] Office for People With Developmental Disabilities. If such information is present, then the following [facility] mandated warning applies: This information has been [...] law may result in a fine or long term sentence or both. A general authorization for the release of medical or other information is NOT sufficient authorization for further disc losure. Family History Family Member Name Family Member Gender Family Member Status Date o f Status Description Data Source(s) Unknown Female Problem MEDENT ([facility], ) Encounters Encounter Providers Location Date Indications Data Source(s ) Outpatient Attender: RU PIPERAGUEDA-SJP.AGUEDA 12:00:00 AM EST - 10/14/2020 11:03:48 AM EST [facility] Unknown [address] [facility] [address] 09/16/2020 12:00:00 AM EST eCW1 ([facility]) (JANETH NP120) New Patient 120 [address] [place] [address] 09/14/2020 12:00:00 AM EST eCW1 ([facility]) Outpatient Attender: Maikel Arguello NP SJPKishoreAGUEDA-SJP.AGUEDA 020 12:00:00 AM EST - 08/09/2020 10:39:57 AM EST [facility] Outpatient Attender: Aliya Fernando MDAdmitter: Aliya andre MD ES1-SJ.CVAU 08/03/2020 07:44:00 AM EST - 08/04/2020 07:00:00 PM EST [facility] Patient discharged. (WND STRTCH) Stretcher Required Patients [address] [id number] 07/13/2020 12:00:00 AM EST eCW1 ([facility]) Outpatient Attender: Maikel PIPERAGUEDA-SJP.AGUEDA 020 12:00:00 AM EST - 07/06/2020 02:02:35 PM EST [facility] Unknown [address] [facility] [address] 07/05/2020 12:00:00 AM EST eCW1 ([facility]) (WND STRTCH) Stretcher Required Patients [address] [place] [address] 06/29/2020 12:00:00 AM EST eCW1 ([facility]) Unknown [address] [facility] [address] 06/22/2020 12:00:00 AM EST eCW1 ([facility]) Unknown [address] [facility] [address] 06/15/2020 12:00:00 AM EDT eCW1 ([facility]) Outpatient Attender: Aliya Fernando MDAdmitter: Aliya andre MD ES1-SJ.CVAU 06/11/2020 11:35:05 AM EDT [facility] Outpatient Attender: Maikel Arguello NP SJP.AGUEDA-SJP.AGUEDA 020 12:00:00 AM EDT - 06/08/2020 02:21:20 PM EDT [facility] (WND STRTCH) Stretcher Required Patients [address] [place] [address] 06/08/2020 12:00:00 AM EDT eCW1 ([facility]) (WND STRTCH) Stretcher Required Patients [address] [address] 06/01/2020 12:00:00 AM EDT eCW1 ([facility]) (WND NP120) New Patient 120 Min [address] [place] [address] 05/25/2020 12:00:00 AM EDT eCW1 ([facility]) Outpatient Attender: Jany Hernandezang/Gen[place]/Derian/R eindl 04/06/2020 10:45:00 AM EDT MEDENT ([facility]) Outpatient Attender: Jany Benitez/[place]/Derian/R eindl 03/18/2020 11:45:00 AM EDT MEDENT ([facility]) Outpatient Attender: EB MOSCOSO [facility] 02/18 01:15:00 PM EDT MEDENT [facility] Out[facility] [address] [facility] [address] 03/02/2020 12:00:00 AM EDT eCW1 ([facility]) Outpatient Attender: Maikel CHILDERSeferrer: Maikel Gamboa DO MOB-M OB.PAT 01/20/2020 12:58:44 PM EDT - 01/20/2020 02:20:57 PM EDT [facility] Outpatient Attender: MARCUS Benitez/Adelaide/Alber cross/Reinadan 12/25/2019 11:20:00 AM EDT MEDENT ([facility] ) Outpatient Referrer: MD RACHID GARZA 12/10/2019 05:29:00 AM EDT [facility] Outpatient Attender: Maikel Arguello NPReferrer: Maikel Arguello NP SJP.AGUEDA-SJP.AGUEDA 10/15/2019 07:02:01 AM EST - 10/15/2019 12:00:36 PM EST [facility] Outpatient Referrer: Maikel Arguello NP SJP.AGUEDA-SJP.AGUEDA 020 12:00:00 AM EST - 10/15/2019 11:14:35 AM EST [facility] Outpatient Attender: Jany Benitez/Adelaide/Derian/R eindl 09/23/2019 08:45:00 AM EST MEDENT ([facility] ) Outpatient Referrer: MD RACHID GARZA 09/19/2019 02:57:00 PM EST [facility] Outpatient Referrer: MD RACHID GARZA 09/10/2019 02:54:00 PM EST [facility] Outpatient Attender: Maikel Arguello NP SJP.AGUEDA-SJP.AGUEDA 020 12:00:00 AM EST - 09/09/2019 02:14:19 PM EST [facility] Outpatient Attender: Jada Benitez/Adelaide/Derian/ Peter 09/04/2019 01:00:00 PM EST MEDENT ([facility] ) Outpatient Attender: Maikel Gamboa DOAdmitter: Maikel Gamboa DO ES1-S J.EU 07/09/2019 11:37:24 AM EST [facility] Medications Medication Brand Name Start Date Product Form Dose Route Admi nistrative Instructions Pharmacy Instructions Status Indications Reaction Description Data Source(s) ezetimibe 10 MG Oral Tablet ezetimibe (ZETIA) 10 MG ta blet ezetimibe (ZETIA) 10 MG tablet 08/09/2020 12:00:00 AM EST 10 mg Oral active Take 1 tablet (10 mg total) by mouth daily [facility] Aspirin 81 MG Chewable Tablet aspirin chewable tablet 81 mg aspirin chewable tablet 81 mg 08/04/2020 09:00:00 AM EST 81 mg Oral activ e 81 mg, Oral, Daily, First dose on Sun08/04/20 at 0900, Post-op
D/C any prior aspirin order
[facility] Medication administered onsite clopidogrel 75 MG Oral Tablet clopidogrel (PLAVIX) tab let 75 mg clopidogrel (PLAVIX) tablet 75 mg 08/04/2020 09:00:00 AM EST 75 mg Oral active 75 mg, Oral, Daily, First dose on Sun08/04/20 at 0900, Post-op
May begin the same day
[facility] Medication administered onsite atorvastatin 40 MG Oral Tablet atorvastatin (LIPITOR) 40 MG tablet atorvastatin (LIPITOR) 40 MG tablet 08/04/2020 12:00:00 AM EST 40 mg Oral active Take 1 tablet (40 mg total) by mouth nightly [facility] Aspirin 81 MG Chewable Tablet aspirin 81 MG chewable t ablet aspirin 81 MG chewable tablet 08/04/2020 12:00:00 AM EST 81 mg Oral ac tive Chew 1 tablet (81 mg total) daily [facility] clopidogrel 75 MG Oral Tablet clopidogrel (PLAVIX) 75 MG tablet clopidogrel (PLAVIX) 75 MG tablet 08/04/2020 12:00:00 AM EST 75 mg Oral active Take 1 tablet (75 mg total) by mouth daily [facility] furosemide (LASIX) injection 40 mg [id number] 08/04/2020 12:00:00 AM EST 40 mg Intravenous completed 40 mg, I ntravenous, Once, Sun08/04/20 at 0000, For 1 dose [facility] Medication administered onsite Regular Insulin, Human 100 UNT/ML Inject able Solution [Humulin R] insulin regular (HumuLIN,NovoLIN) IV injection 10 Units insulin regular (HumuLIN,NovoLIN) IV injection 10 Units 08/04/2020 12:00:00 AM EST 10 U Intravenous completed 10 Units, Int ravenous, Once, Sun08/04/20 at 0000, For 1 dose [facility] Medication administered onsite dextrose 50 % solution 25-50 g [id number] 08/04/2020 12:00:00 AM ES T Intravenous completed 25-50 g, Intr avenous, Once, Sun08/04/20 at 0000, For 1 dose
For BS <150 give 50 g (2 amp D50 or 100 ml)For BS 150-300 give 25 g (1 amp D50 or 50 ml).For BS>300 hold D50.
[facility] Medication administered onsite dextrose 10 % infusion 7100-3024-07 08/04/2020 12:00:00 AM EST 75 mL/h Intravenous completed 75 mL/hr, Int ravenous, at 75 mL/hr, Continuous, Starting Sun08/04/20 at 0000, For 6 hours [facility] Medication administered onsite atorvastatin 40 MG Oral Tablet atorvastatin (LIPITOR) tablet 40 mg atorvastatin (LIPITOR) tablet 40 mg 08/03/2020 09:00:00 PM EST 40 mg Oral active 40 mg, Oral, Nightly, First dose on Sun08/03/20 at 2100 [facility] Medication administered onsite Insulin Lispro 100 [...] NPO70- 1201 units 1 unit s 0 zlusp432-9540 units 1 units 0 sbaqw890- 2201 units 1 units 0 wsufc277-2995 units 1 units 0 imfxe280- 3202 units 1 units 1 vqste184-2285 units 1 units 1 zehjl120-5143 units 1 units 1 units>420 call MD2 units 2 units 1 unitsTest glucose within 30 minutes of insulin administration.Administer insulin within 15 minutes (before or after) of the patient starting to eat.For patients that are NPO, use theNPO (correction) scale to cover POC glucose at 08:00, 12:00, 17:00.
[facility] Medication administered onsite normal saline flush 0.9 % injection 3 mL [id number] 08/03/2020 02:00:00 PM EST 3 mL Intravenous aborted 3 mL , Intravenous, PROTOCOL, First dose on Sun08/03/20 at 1400, Pre-op
flush per protocol, D/C Main IV fluid if appropriate
[facility] Medication administered onsite gabapentin 100 MG Oral Capsule gabapentin (NEURONTIN) capsule 100 mg gabapentin (NEURONTIN) capsule 100 mg 08/03/2020 02:00:00 PM EST 100 mg Oral active 100 mg, Oral, 2 times daily, First dose on Sun08/03/20 at 1400 [facility] Medication administered onsite pantoprazole 40 MG Delayed Release Oral Tablet pantoprazole (PROTONIX) EC tablet 40 mg pantoprazole (PROTONIX) EC tablet 40 mg 08/03/2020 02:00:[address] 40 mg Oral active Gastroesophageal Reflux Diseas e 40 mg, Oral, Daily, Indications: Gastroesophageal Reflux Disease, First dose on Sun08/03/20 at 1400 [facility] Gastroesophageal Reflux Disease Medication administered onsite Propranolol Hydrochloride 10 MG Oral Tablet propranolo l (INDERAL) tablet 5 mg propranolol (INDERAL) tablet 5 mg 08/03/2020 01:00:00 PM EST 5 mg Oral active 5 mg, Oral, 2 times daily, First dose on Sun08/03/20 at 1300 [facility] Medication administered onsite Nitroglycerin 0.4 MG Sublingual Tablet n itroglycerin (NITROSTAT) SL tablet 0.4 mg nitroglycerin (NITROSTAT) SL tablet 0.4 mg 08/03/2020 12:57:21 P M EST 0.4 mg Sublingual active 0.4 mg, S ublingual, Every 5 min PRN, chest pain, Starting Sun08/03/20 at 1257, Post-op
May administer every 5 minutes for 3 doses and call cardio lab MD.
[facility] Medication administered onsite Acetaminophen 325 MG Oral Tablet acetaminophen (TYLENO L) 325 MG tablet 650 mg acetaminophen (TYLENOL) 325 MG tablet 650 mg 08/03/2020 12:57:21 PM EST 650 mg Oral active 650 mg, Or al, Every 4 hours PRN, headaches, and non cardiac pain, Starting Sun08/03/20 at 1257, Post-op
"Maximum dose of acetaminophen is 4,000 mg from all sources in 24 hours."
[facility] Medication administered onsite Aspirin 325 MG Oral Tablet aspirin tablet 325 mg aspirin tab let 325 mg 08/03/2020 09:00:00 AM EST 325 mg Oral completed 325 mg, Oral, Once, Sun08/03/20 at 0900, For 1 dose, Pre-op
Give if scheduled for cardiac or peripheral angioplasty/stent or carotid stenting.Administer AM dose prior to procedure if NOT taken at home.Max of 1 dose per day.
[facility] Medication administered onsite Diphenhydramine Hydrochloride 50 MG Oral Capsule diphenhydrAMINE (BENADRYL) capsule 50 mg diphenhydrAMINE (BENADRYL) capsule 50 mg 08/03/2020 09 :00:00 AM EST 50 mg Oral completed 50 mg, Oral, calliope player, Sun08/03/20 at 0900, For 1 dose, Pre-op [facility] Medication administered onsite sodium chloride 0.9% (NS) infusion [id number] 08/03/2020 09:00:00 AM EST 100 mL/h Intravenous aborted at 100 m L/hr, 100 mL/hr, Intravenous, Continuous, Starting Sun08/03/20 at 0900, Pre-op
Start two hours prior to scheduled start time
[facility] Medication administered onsite normal saline flush 0.9 % injection 3 mL 33797-175-06 08/03/2020 09:00:00 AM EST 3 mL Intravenous aborted 3 mL , Intravenous, Every 8 hours (scheduled), First dose on Sun08/03/20 at 0900, Pre-op
Rapid push positive pressure flushing shall be performed with a 10 cc normal saline syringe to check the PATENCY of a PIV site prior to any infusion therapy initiation unless resistance is met.
[facility] Medication administered onsite normal saline flush 0.9 % injection 3 mL [id number] 08/03/2020 09:00:00 AM EST 3 mL Intravenous aborted 3 mL , Intravenous, Every 8 hours (scheduled), First dose on Sun08/03/20 at 0900, Pre-op
Rapid push positive pressure flushing shall be performed with a 10 cc normal saline syringe to check the PATENCY of a PIV site prior to any infusion therapy initiation unless resistance is met.
[facility] Medication administered onsite clopidogrel 75 MG Oral Tablet clopidogrel (PLAVIX) 75 MG tablet clopidogrel (PLAVIX) 75 MG tablet 06/08/2020 12:00:00 AM EDT aborted Four tablets by mouth the night before the procedure [facility] Propranolol Hydrochloride 10 MG Oral Tablet propranolo l (INDERAL) 10 MG tablet propranolol (INDERAL) 10 MG tablet 05/28/2020 12:00:00 AM EDT 5 mg active 5 mg 2 (two) times a day [facility] b complex-vitamin c-folic acid (NEPHRO-BARBARA) 0.8 MG TABS [id number] 05/28/2020 12:00:00 AM EDT active TAKE ONE TABLET BY MOUTH @5PM [facility] sildenafil 50 MG Oral Tablet sildenafil (VIAGRA) 50 MG tablet sildenafil (VIAGRA) 50 MG tablet 05/13/2020 12:00:00 AM EDT active TAKE ONE TABLET BY MOUTH ONCE DAILY NEEDED [facility] Ensure High Protein 12/25/2019 12:00:00 AM EDT active MEDENT ([facility]) Lactulose 667 MG/ML Oral Solution Lactulose 12/25/2019 12:00:00 AM EDT active [facility] Insurance Providers Payer name Policy type / Coverage type Policy ID Covered democrat ID Covered democrat's relationship to arteaga Policy [place]te[place] Plan Information MEDICARE [id number] SP [id number] [facility] [id number] SP [id number] BCBS EMPIRE [place] DIV [id number] SP [id number] INSURANCE COVID-19 COVID Velia C OVID MEDICARE [id number] Velia [id number] [employer] BCBS [id number] Velia YLS [id number] [facility] [id number] SP [id number] MEDICARE C [id number] S [id number] [facility] [id number] S [id number] INSURANCE COVID-19 [id number] EXCELL[place] BCBS [id number] MEDICARE [id number] BCBS EMPIRE [place] DIV [id number] SP [id number] MEDICARE [id number] SP [id number] INSURANCE COVID-19 COVID Velia C OVID INSURANCE COVID-19 [id number] INSURANCE COVID-19 COVID Velia C OVID MEDICARE [id number] SP [id number] [facility] [id number] SP [id number] BCBS EMPIRE [place] DIV [id number] SP [id number] MEDICARE [id number] SP [id number] A Medicare Dme Medigap Part B [id number] Self [id number] [facility] Medigap Part B [id number] Self [id number] Medicare Medicare Primary [id number] Self [id number] Medicare Dme Medigap Part B [id number] Self [id number] [facility] Medigap Part B [id number] Self [id number] Medicare Medicare Primary [id number] Self [id number] [place] Medicare Primary [id number] Self [id number] [employer] [place] Medigap Part B [id number] Self [id number] Medicare [place]/[facility] Medicare Primary [id number] Self [id number] BCBS EMPIRE [place] DIV [id number] SP [id number] [facility] [id number] SP [id number] [facility] [place] Medigap Part B [id number] Self [id number] [place] Medicare Primary [id number] Self [id number] Medicare Dme Medigap Part B [id number] Self [id number] [place] [facility] Medigap Part B [id number] Self [id number] Medicare Medicare Primary [id number] Self [id number] BCBS EMPIRE [place] DIV [id number] SP [id number] MEDICARE [id number] SP [id number] A Medicare Medigap Part B [id number] Self [id number] [facility] Medigap Part B [id number] Self [id number] Medicare Dme Medicare Primary [id number] Self [id number] [facility] [id number] SP [id number] ANSI-Commercial [id number] ANSI-Medicare Part B [id number] ANSI-Medicare Part B [id number] ANSI-Commercial [id number] ANSI-Medicare Part B [id number] ANSI-Commercial [id number] ANSI-Medicare Part B [id number] ANSI-Commercial [id number] ANSI-Commercial [id number] ANS-Medicare Part B [id number] ANSI-Medicare Part B [id number] ANSI-Commercial [id number] Medicare Dme Medigap Part B [id number] Self [id number] [facility] Part B [id number] Self [id number] Medicare Medicare Primary [id number] Self [id number] MEDICARE [id number] SP [id number] A [facility] [place] Medigap Part B [id number] Self [id number] [place] Medicare Primary [id number] Self [id number] [facility] [id number] SP [id number] BCBS EMPIRE [place] DIV [id number] SP [id number] Medicare Dme Medigap Part B [id number] Self [id number] [facility] [id number] Self [id number] Medicare Medicare Primary [id number] Self [id number] MEDICARE [id number] S [id number] A BCBS EMPIRE [place] DIV [id number] [facility] [id number] SP [id number] MEDICARE [id number] SP [id number] A [facility] [place] Medigap Part B [id number] Self [id number] [place] Medicare Primary [id number] Self [id number] Medicare Dme Medigap Part B [id number] Self [id number] [facility] Medigap Part B [id number] Self [id number] Medicare Medicare Primary [id number] Self [id number] [facility] [id number] SP [id number] BCBS EMPIRE [place] DIV [id number] SP [id number] Medicare Dme Medigap Part B [id number] Self [id number] [facility] Medigap Part B [id number] Self [id number] Medicare Medicare Primary [id number] Self 08 [id number] [facility]ARE [id number] SP [id number] BCBS EMPIRE [place] DIV [id number] SP [id number] [facility] [id number] SP [id number] Medicare Dme Medigap Part B [id number] Self [id number] [facility] Medigap Part B [id number] Self [id number] Medicare Medicare Primary [id number] Self 08 [id number] [facility] Medigap Part B [id number] Self [id number] Medicare Medicare Primary [id number] Self 08 [id number] [facility] Medigap Part B [id number] Self [id number] Medicare Medicare Primary [id number] Self 08 [id number] [facility] Medigap Part B [id number] Self [id number] Medicare Medicare Primary [id number] Self 08 [id number] [facility] Medigap Part B [id number] Self [id number] Medicare Medicare Primary [id number] Self 08 [id number] UNITED [facility]ALTHCARE [id number] SP [id number] EMPIRE (STATE EMP) O [id number] S [id number] SELF PAY UNAVAILABLE UNAVAILA BLE MEDICARE [id number] Velia [id number] A BCBS EMPIRE [place] DIV [id number] SP [id number] UNITED [employer] P [id number] S [id number] Problems, Conditions, and Diagnoses Code Display Name Description Problem Type Effective Dates Data Source(s) L97.412 [id number] Non-pressure chronic ulcer of right heel and midfoot with fat layer exposed Problem 09/14/2020 12:00:00 AM EST eCW1 ([facility]) E87.5 Hyperkalemia Hyperkalemia [id number] 08/03/2020 12:00:00 A [facility] 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, without long-term current use of insulin Type 2 diabetes mellitus with chronic kidney disease on chronic dialysis, without long-term current use of insulin [id number] 07/09/2020 12:00:00 AM EST [facility] I35.0 Nonrheumatic aortic valve stenosis Nonrheumatic aortic valve stenosis [id number] 07/09/2020 12:00:00 AM [facility] L73.9 [id number] Folliculitis Problem 05/25/2020 12:00:00 AM EDT eCW1 ([facility]) E11.628 [id number] Type 2 diabetes mellitus with other skin complications Problem 05/25/2020 12:00:00 AM EDT eCW1 ([facility]) 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 Erectile dys function due to diseases classified elsewhere Problem 03/02/2020 12:00:00 AM EDT eCW1 ([facility]) I35.0 Nonrheumatic aortic (valve) stenosis Nonrheumati c aortic (valve) stenosis Diagnosis 10/14/2020 09:34:57 AM EST [facility] K92.1 Melena Melena Diagnosis 10/14/2020 09:34:57 AM [facility] E78.5 Hyperlipidemia, unspecified Hyperlipidemia, unspecifie d Diagnosis 10/14/2020 09:34:57 AM [facility] Z95.1 Presence of aortocoronary bypass graft P resence of aortocoronary bypass graft Diagnosis 10/14/2020 09:34:57 AM [facility] I95.3 Hypotension of hemodialysis Hypotension of hemodialysi s Diagnosis 08/09/2020 09:30:15 AM EST [facility] Z99.2 Dependence on renal dialysis Dependence on renal dialy sis Diagnosis 08/03/2020 07:44:00 AM EST [facility] N18.6 End stage renal disease End stage renal disease Diagno sis 08/03/2020 07:44:00 AM EST [facility] E11.22 Type 2 diabetes mellitus with diabetic c hronic kidney disease Type 2 diabetes mellitus with diabetic c Diagnosis 08/03/2020 07:44:00 AM EST [facility] K31.7 Polyp of stomach and duodenum Polyp of stomach and duo denum Diagnosis 01/20/2020 12:58:44 PM EDT [facility] Surgeries/Procedures Procedure Description Date Indications Data [...] Status post four vessel coronary artery bypass [facility] Status post four vessel coronary artery bypass GLUC BLD GLUC MNTR DEV CLEARED FDA SPEC HOME USE POCT GLUCOSE Routine 08/04/2020 4:57 PM EST 08/04/2020 09:57:00 PM EST [facility] GLUC BLD GLUC MNTR DEV CLEARED FDA SPEC HOME USE POCT GLUCOSE Routine 08/04/2020 8:48 AM EST 08/04/2020 01:48:00 PM EST [facility] KU2 PANEL KU2 PANEL STAT 08/04/2020 7:11 AM EST 08/04/2020 12:11:00 PM EST [facility] BLOOD COUNT COMPLETE AUTOMATED CBC STAT 08/04/2020 7:11 A M EST 08/04/2020 12:11:00 PM EST [facility] PHOSPHORUS INORGANIC PHOSPHORUS STAT 08/04/2020 7:11 AM EST 08/04/2020 12:11:00 PM [facility] Hemodialysis (procedure) HEMODIALYSIS INPATIENT TX Routine 08/04/2020 7:06 AM EST 08/04/2020 12:06:01 PM EST [facility] Hemodialysis (procedure) HEMODIALYSIS INPATIENT TX Routine 08/04/2020 7:06 AM EST 08/04/2020 12:06:01 PM [facility] GLUC BLD GLUC MNTR DEV CLEARED FDA SPEC HOME USE POCT GLUCOSE Routine 08/04/2020 6:40 AM EST 08/04/2020 11:40:00 AM [facility] ECG ROUTINE ECG W/LEAST 12 LDS TRCG ONLY W/O I&R ECG 12-LEAD Routine 08/04/2020 5:46 AM EST 08/04/2020 10:46:17 AM [facility] GLUC BLD GLUC MNTR DEV CLEARED FDA SPEC HOME USE POCT GLUCOSE Routine 08/04/2020 5:46 AM EST 08/04/2020 10:46:00 AM [facility] BASIC METABOLIC PANEL CALCIUM TOTAL BASIC METABOLIC PANEL Routi ne 08/04/2020 5:44 AM EST 08/04/2020 10:44:00 AM [facility] GLUC BLD GLUC MNTR DEV CLEARED FDA SPEC HOME USE POCT GLUCOSE Routine 08/04/2020 4:43 AM EST 08/04/2020 09:43:00 AM [facility] GLUC BLD GLUC MNTR DEV CLEARED FDA SPEC HOME USE POCT GLUCOSE Routine 08/04/2020 3:44 AM EST 08/04/2020 08:44:00 AM [facility] GLUC BLD GLUC MNTR DEV CLEARED FDA SPEC HOME USE POCT GLUCOSE Routine 08/04/2020 2:46 AM EST 08/04/2020 07:46:00 AM [facility] GLUC BLD GLUC MNTR DEV CLEARED FDA SPEC HOME USE POCT GLUCOSE Routine 08/04/2020 2:11 AM EST 08/04/2020 07:11:00 AM [facility] BASIC METABOLIC PANEL CALCIUM TOTAL BASIC METABOLIC PANEL Timed 08/04/2020 2:00 AM EST 08/04/2020 07:00:00 AM [facility] GLUC BLD GLUC MNTR DEV CLEARED FDA SPEC HOME USE POCT GLUCOSE Routine 08/04/2020 1:45 AM EST 08/04/2020 06:45:00 AM EST [facility] GLUC BLD GLUC MNTR DEV CLEARED FDA SPEC HOME USE POCT GLUCOSE Routine 08/04/2020 1:13 AM EST 08/04/2020 06:13:00 AM [facility] CMB CMB STAT 08/04/2020 12:38 AM EST 08/04/20 05:38:00 AM [facility] CREATINE KINASE MB FRACTION ONLY CKMB Timed 08/04/2020 12:38 AM EST 08/04/2020 05:38:00 AM [facility] GLUC BLD GLUC MNTR DEV CLEARED FDA SPEC HOME USE POCT GLUCOSE Routine 08/03/2020 11:19 PM EST 08/04/2020 04:19:00 AM [facility] ECG ROUTINE ECG W/LEAST 12 LDS TRCG ONLY W/O I&R ECG 12-LEAD STAT 08/03/2020 11:11 PM EST 08/04/2020 04:11:49 AM [facility] GLUC BLD GLUC MNTR DEV CLEARED FDA SPEC HOME USE POCT GLUCOSE Routine 08/03/2020 6:14 PM EST 08/03/2020 11:14:00 PM [facility] CMB CMB STAT 08/03/2020 4:07 PM EST 08/03/20 09:07:00 PM [facility] CREATINE KINASE MB FRACTION ONLY CKMB Routine 08/03/2020 4:07 PM EST 08/03/2020 09:07:00 PM [facility] BASIC METABOLIC PANEL CALCIUM TOTAL BASIC METABOLIC PANEL Routi ne 08/03/2020 4:07 PM EST 08/03/2020 09:07:00 PM EST [facility] GLUC BLD GLUC MNTR DEV CLEARED FDA SPEC HOME USE POCT GLUCOSE Routine 08/03/2020 1:58 PM EST 08/03/2020 06:58:00 PM EST [facility] CARDIAC CATHETERIZATION CARDIAC CATHETERIZATION Routine 08/03/2020 [...] stenosisStatus post four vessel coronary artery bypass 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, without long-term current use of insulin Hemodialysis-associated hypotension Hyperlipidemia, unspecified hyperlipidem ia type Nonrheumatic aortic valve stenosis Status post four vessel coronary artery bypass ECG ROUTINE ECG W/LEAST 12 LDS TRCG ONLY W/O I&R ECG 12-LEAD Routine 08/03/2020 8:17 AM EST 08/03/2020 01:17:16 PM EST [facility] FINE NEEDLE ASPIRATION W/O IMAGING GUIDANCE 07/13/2020 12:00:00 AM EST eCW1 ([facility]) DEBRIDEMENT OPEN WOUND 20 SQ CM/< 07/08/2020 12:00:00 AM EST [facility] DEBRIDEMENT OPEN WOUND 20 SQ CM/< 07/01/2020 12:00:00 AM EST [facility] FINE NEEDLE ASPIRATION W/O IMAGING GUIDANCE 06/29/2020 12:00:00 AM EST eCW1 ([facility]) DEBRIDEMENT OPEN WOUND 20 SQ CM/< 06/10/2020 12:00:00 AM EDT [facility] ([facility] FINE NEEDLE ASPIRATION W/O IMAGING GUIDANCE 06/08/2020 12:00:00 AM EDT eCW1 ([facility]) DEBRIDEMENT SUBCUTANEOUS TISSUE 20 SQ CM/< 06/01/2020 12:00:00 AM EDT [facility] ([facility] FINE NEEDLE ASPIRATION W/O IMAGING GUIDANCE 06/01/2020 12:00:00 AM EDT eCW1 ([facility]) FINE NEEDLE ASPIRATION W/O IMAGING GUIDANCE 05/25/2020 12:00:00 AM EDT eCW1 ([facility]) DEBRIDEMENT OPEN WOUND 20 SQ CM/< 05/18/2020 [...] Periph eral 03/30/2020 12:00:00 AM EDT [facility] ([facility] Moderate Sedation Services; Same Phys Intl 15 Mins; PT >= 5 Years 03/30/2020 12:00:00 AM EDT [facility] ([facility] DEBRIDEMENT OPEN WOUND 20 SQ [...] EDT Moreno yp of stomach and duodenum [facility] Polyp of stomach and duodenum BLOOD COUNT COMPLETE AUTOMATED CBC Routine 0 2:15 PM EDT Polyp of stomach and duodenum 01/20/2020 06:15:00 PM EDT [place] yp of stomach and duodenum [facility] Polyp of stomach and duodenum HEMOGLOBIN GLYCOSYLATED A1C HEMOGLOBIN A1C Routine 01/20/2020 2:15 PM EDT Polyp of stomach and duodenum 01/20/2020 06:15:00 PM EDT [place] yp of stomach and duodenum [facility] Polyp of stomach and duodenum BASIC METABOLIC PANEL CALCIUM TOTAL BASIC METABOLIC PANEL Routi ne 01/20/2020 2:15 PM EDT Polyp of stomach and duodenum 01/20/2020 06:15:00 PM EDT [place] yp of stomach and duodenum [facility] Polyp of stomach and duodenum Dialysis Circuit, Intro [place]/Cath W/ Diagnostic Angiograp hy 09/16/2019 12:00:00 AM EST [facility] ([facility] Dialysis Circuit Perm Vascular Embolization Or Occlusion, En dovas 09/16/2019 12:00:00 AM EST [facility] ([facility]) Moderate Sedation Services; Same Phys Intl 15 Mins; PT >= 5 Years 09/16/2019 12:00:00 AM EST [facility] ([facility]) Results ID Date Data Source [id number] 08/23/2020 03:52:00 PM EST [facility] Name Value Range Interpretation Code Description Data Ale rce(s) Supporting Document(s) SARS-CoV-2 (COVID 19) [facility] This lab was ordered by [facility] a nd reported by [facility]. ID Date Data Source [id number] 08/16/2020 12:03:00 PM EST [facility] Name Value Range Interpretation Code Description Data Ale rce(s) Supporting Document(s) SARS coronavirus 2 RNA [Presence] in Res piratory specimen by ROZINA with probe detection [facility] This lab was ordered by [facility] a nd reported by [facility]. ID Date Data Source [id number] 08/05/2020 03:30:53 PM EST [facility] INFORMATIONPatient MRN Name Date of Age Gend*PT [id number] PhulaciKalyani tucker 1950 70 years M HOPPT Location Admission Date/Time Visit ID Attending ProviderCV-10 08/03/20 0744 --- --- EPI ID CSN Admitting Provider [id number] Aliya Fernando MD([id number]) Attestation signed by Aliya Fernando MD at 08/05/2020 3:30 PMSignature: LUIS ALBERTO Barajasate: August 05, 2020Time: 3:30 PM Physician Discharge Summary Kalyani AlvahemantMRN: [id number] date: 08/03/2020Attending Physician: Wen Barajas Diagnosis: <principal problem not specified>Principle Procedures:1. Cardiac catheterization: 08/03/2020Interpretation [id number] [facility] with coronary artery disease and [facility]-stage [facility] [...] loss minimal.Indication for Admission: patient presented to [facility] for scheduled cardiaccatheterization.Hospital Course & Complications: Patient [...] ONCE DAILY NEEDEDvitamin D (Ergocalciferol) 1.25 MG (85521 UT) Caps Take 1 capsule by mouth once a weekWhere to Get Your Medi cationsThese medications were sent to [facility] [address] [id number] aspirin 81 MG chewable tablet atorvastatin 40 [...] morenoe(s) Supporting Document(s) ID Date Data Source [id number] 08/04/2020 04:59:04 PM EST [facility] Name Value Range Interpretation Code Description Data Ale rce(s) Supporting Document(s) POC NOVA GLU 76 mg/dL (70-99) [facility] [place] [facility] ID Date Data Source [id number] 08/04/2020 10:51:10 AM EST [facility] INFORMATIONPatient MRN Name Date of Age Gend*PT [id number] Kalyani Tyson 1950 70 years M HOPPT Location Admission Date/Time Visit ID Attending ProviderHEMODIALYSIS 08/03/20 0744 --- Aliya Fernando MD([id number]) EPI ID CSN Admitting Provider [id number] Aliya Fernando MD([id number]) Attestation signed by Marcelo Crain MD at 08/04/2020 10:51 AMI saw and evaluated the patient and reviewed ROTOR PILOT's note. I agree with thehistory, physical and [...] by Dr. Mayorga for ESRD on HD [facility] with a pmhx CAD s/p CABG, hemodialysis associated hypotension,nonrheumatic aortic valve stenosis, HLD, and non-insulin dependent DM II [facility]opresented [facility]. Patient had [...] file Gets together: Not on file Attends moravian service: Not on file Active member of [...] DAILY NEEDED vitamin D, Ergocalciferol, 1.25 MG (28690 UT) CAPS Take 1 capsule by mouthonce [...] 0655)PRN Meds:.acetaminophen, atropine sulfate, nitroglycerinMaureen DKishore Boyd, STACKER TENDER-C Name Value Range Interpretation Code Description Data Ale rce(s) Supporting Document(s) ID Date Data Source [id number] 08/04/2020 08:59:26 AM EST [facility] Name Value Range Interpretation Code Description Data Ale rce(s) Supporting Document(s) POC NOVA GLU 93 mg/dL (70-99) [facility] [place] [facility] ID Date Data Source [id number] 08/04/2020 09:54:54 AM EST [facility] Name Value Range Interpretation Code Description Data Ale rce(s) Supporting Document(s) PHOSPHORUS 7.7 mg/dL (2.5-4.5) H [facility] ID Date Data Source [id number] 08/04/2020 09:54:49 AM EST [facility] Name Value Range Interpretation Code Description Data Ale rce(s) Supporting Document(s) SODIUM 134 mmol/L (136-145) L [facility] POTASSIUM 5.5 mmol/L (3.6-5.2) H [facility] CHLORIDE 95 mmol/L (100-108) L [facility] CO2 24 mmol/L (22-31) [facility] ANION GAP 15 mmol/L (7-16) [facility] UREA NITROGEN 46 mg/dL (7-24) H [facility] CREATININE 8.60 mg/dL (0.80-1.30) HH [facility] CONSISTENT WITH PREVIOUS RESULTS BUN/CREAT RATIO 5.3 RATIO (10.0-20.0) L [facility] GLUCOSE 104 mg/dL (70-99) H [facility] CALCIUM 7.9 mg/dL (8.4-10.2) L [facility] GFR 6 ml/min/1.73m2 (>59) L [facility] GFR ( AMER) 7 [...] for medication dosing. ID Date Data Source [id number] 08/04/2020 09:13:44 AM EST [facility] Name Value Range Interpretation Code Description Data Ale rce(s) Supporting Document(s) WBC 3.4 10*3/uL (4.1-11.0) L [facility] [place] RBC 3.66 10*6/uL (4.60-6.10) L [facility] HGB 10.3 g/dL (13.5-18.0) L [facility] HCT 31.1 % (41.0-53.0) L [facility] PER[facility] AT [address] [place] [address] N [place] [address] MCV 85.0 fL (80.0-95.0) [facility] MCH 28.1 pg (27.0-32.0) [facility] MCHC 33.1 g/dL (32.0-36.0) [facility] RDW 15.4 % (10.5-14.5) H [facility] PLT 93 10*3/uL (150-450) L [facility] MPV 8.0 fL (7.1-10.7) [facility] ID Date Data Source [id number] 08/04/2020 06:41:54 AM EST [facility] Name Value Range Interpretation Code Description Data Ale rce(s) Supporting Document(s) POC NOVA GLU 148 mg/dL (70-99) H [facility] [place] [facility] ID Date Data Source [id number] 08/04/2020 06:34:17 AM EST [facility] Name Value Range Interpretation Code Description Data Ale rce(s) Supporting Document(s) EKG [facility] [id number]wMN4irsg0M9N8xIPdW8VdyULae6bqO2QrF1ZsVOTkWNTCHQ3CuHWz jb2 [file] [id number]/nylon operator/X4APgqsjfYs6GfK0NKQR36s0gseq [file] BWVOM2L= ID Date Data Source [id number] 08/04/2020 06:33:33 AM EST [facility] Name Value Range Interpretation Code Description Data Ale rce(s) Supporting Document(s) EKG [facility] IBNFBr7zMwAYKnTen5NlSyRjBAHwPT6cokr0Z8E2rFXuL6IryRKgx9jtP9GjR2BrNIOgJWWMIU7VrVZh jb2 [file] he4aG1+pvoLdfqQ2x205Zw8cQJR2l+zk2v1+pjQ Tl2ml4igIdY/nQvalKLin0fFqumcX6pfz3d0GXVVmc+I/JWDWquXbNRa/R1zrlyWuwQhynlWKB+boWSN ZTcbmiRTbbmrcBRLaLWI5oD7T2eJssYWKzaBWk2CdJNVtKNOjKECXehMYfTbYpYCySE9NwSpVeyLkBD3 JsCbTrhV8WRkBNG4PE6BxTODv6VLD7HHZz1hWD8PZm G/LVlBGQlWJvMwbK43+jeos9LEGHpO2XKy/QBVyMg8CXmQVtyYqNV+dDsCRPmjBGl6GVTH2cjgixxgEs NcgnxWm7xc+GPR1XOPHTZNPgOkGpH1rTfGHW/ZGRcowOlRoS9vKWm5akU2aoEmVa8HhR/Simba/L7m95jZ [file] GfKfvVcx/5HfYMaiqP/3ywIjK3ribvSg5cW+jose rafael/+ [file] MDAgbiAKMDAwMDAwMDUyMyAwMDAwMCBuIAowMDAwMD VnZhGiBIOxFOWzDB0eUvMgEOAuMGZ8HQSdUEWeEWTswmTTRIYkKWZcDQh8NRGkZTWmEVShHDyuFSYcER FjOXT9AHKqILVcRU1rLgGaRNZdUYOzFLFoXDVoENDzzxYBRVKcEEOyJAL3XFShQABpQEAlLXqsUFUgHZ WwOwu3FTTwQLJiTI4nIjMaTUOiAQQ2QYSrQAVnQQRs fmAXZSCaCKN7LbQhAAEtKNQfQKFiJAcwLDJbFJOaFnC9OETeHKBuTU8bEpHuRQNeHTK0StNcEDVsDRTg baUXOKHbUZDoIIL5XkPuEUEfWSFiJHyyQCIlLCGzCLLqRDB0UIP0QBHcLjFdJVszEXBREJdHH1VgduFg DkXGV5qoUq2kYkLhENMJJ3Okd2JzDHAeKXYKAi5+AyB2KXF1gVFuAup4HlicYoyiMFGKQg== ID Date Data Source [id number] 08/04/2020 05:48:24 AM EST [facility] Name Value Range Interpretation Code Description Data Ale rce(s) Supporting Document(s) POC NOVA GLU 144 mg/dL (70-99) H [facility] [place] [facility] ID Date Data Source [id number] 08/04/2020 07:10:40 AM EST [facility] Name Value Range Interpretation Code Description Data Ale rce(s) Supporting Document(s) SODIUM 133 mmol/L (136-145) L [facility] POTASSIUM 5.3 mmol/L (3.6-5.2) H [facility] CHLORIDE 93 mmol/L (100-108) L [facility] CO2 27 mmol/L (22-31) [facility] ANION GAP 13 mmol/L (7-16) [facility] UREA NITROGEN 48 mg/dL (7-24) H [facility] CREATININE 8.42 mg/dL (0.80-1.30) HH [facility] CONSISTENT WITH PREVIOUS RESULTS BUN/CREAT RATIO 5.7 RATIO (10.0-20.0) L [facility] GLUCOSE 132 mg/dL (70-99) H [facility] CALCIUM 8.2 mg/dL (8.4-10.2) L [facility] GFR 6 ml/min/1.73m2 (>59) L [facility] GFR ( AMER) 8 [...] for medication dosing. ID Date Data Source [id number] 08/04/2020 04:44:56 AM EST [facility] Name Value Range Interpretation Code Description Data Ale rce(s) Supporting Document(s) POC NOVA GLU 134 mg/dL (70-99) H [facility] [place] [facility] ID Date Data Source [id number] 08/04/2020 03:46:23 AM EST [facility] Name Value Range Interpretation Code Description Data Ale rce(s) Supporting Document(s) POC NOVA GLU 132 mg/dL (70-99) H [facility] [place] [facility] ID Date Data Source [id number] 08/04/2020 02:48:19 AM EST [facility] Name Value Range Interpretation Code Description Data Ale rce(s) Supporting Document(s) POC NOVA GLU 121 mg/dL (70-99) H [facility] [place] [facility] ID Date Data Source [id number] 08/04/2020 02:13:21 AM EST [facility] Name Value Range Interpretation Code Description Data Ale rce(s) Supporting Document(s) POC NOVA GLU 111 mg/dL (70-99) H [facility] [place] [facility] ID Date Data Source [id number] 08/04/2020 03:18:01 AM EST [facility] Name Value Range Interpretation Code Description Data Ale rce(s) Supporting Document(s) SODIUM 134 mmol/L (136-145) L [facility] POTASSIUM 5.1 mmol/L (3.6-5.2) [facility] CHLORIDE 95 mmol/L (100-108) L [facility] CO2 27 mmol/L (22-31) [facility] ANION GAP 12 mmol/L (7-16) [facility] UREA NITROGEN 44 mg/dL (7-24) H [facility] CREATININE 8.19 mg/dL (0.80-1.30) [facility] CONSISTENT WITH PREVIOUS RESULTS BUN/CREAT RATIO 5.4 RATIO (10.0-20.0) L [facility] GLUCOSE 90 mg/dL (70-99) [facility] CALCIUM 7.8 mg/dL (8.4-10.2) L [facility] GFR 6 ml/min/1.73m2 (>59) L [facility] GFR ( AMER) 8 ml/min/1.73m2 (>59) L [facility] GFR INTERPRETATION Lab [facility] [place] --NORMAL KIDNEY FUNCTION OR MILD DISEASE - GFR >OR= 60CHRONIC KIDNEY DISEASE - GFR 15 - 59RENAL FAILURE - GFR <15 Est. GFR calculation based on the MDRDstudy equation, which assumes a steadystate for creatinine. Est. GFR should notbe used for medication dosing. ID Date Data Source [id number] 08/04/2020 01:46:50 AM EST [facility] Name Value Range Interpretation Code Description Data Ale rce(s) Supporting Document(s) POC NOVA GLU 94 mg/dL (70-99) [facility] [place] [facility] ID Date Data Source [id number] 08/04/2020 01:14:48 AM EST [facility] Name Value Range Interpretation Code Description Data Ale rce(s) Supporting Document(s) POC NOVA GLU 147 mg/dL (70-99) H [facility] [place] [facility] ID Date Data Source [id number] 08/04/2020 02:12:46 AM EST [facility] Name Value Range Interpretation Code Description Data Ale rce(s) Supporting Document(s) CKMB 2.3 ng/mL (0.0-5.0) [facility] CKMB RELATIVE INDEX 2.6 {index_val} (0.0-4.0) [facility] ID Date Data Source [id number] 08/04/2020 01:58:06 AM EST [facility] Name Value Range Interpretation Code Description Data Ale rce(s) Supporting Document(s) CK 90 U/L (39-308) [facility] ID Date Data Source [id number] 08/03/2020 11:20:45 PM EST [facility] Name Value Range Interpretation Code Description Data Ale rce(s) Supporting Document(s) POC NOVA GLU 172 mg/dL (70-99) H [facility] [place] [facility] ID Date Data Source [id number] 08/03/2020 06:15:08 PM EST [facility] Name Value Range Interpretation Code Description Data Ale rce(s) Supporting Document(s) POC NOVA GLU 109 mg/dL (70-99) H [facility] [place] [facility] ID Date Data Source [id number] 08/03/2020 10:39:34 PM EST [facility] Name Value Range Interpretation Code Description Data Ale rce(s) Supporting Document(s) SODIUM 133 mmol/L (136-145) L [facility] POTASSIUM 6.2 mmol/L (3.6-5.2) HH [facility] ALERTED CRITICAL RESULT [facility]([id number]) [place] [address] ON 08/03/20 [place] [address] [place] [address] CHLORIDE 98 mmol/L (100-108) L [facility] CO2 27 mmol/L (22-31) [facility] ANION GAP 8 mmol/L (7-16) [facility] UREA NITROGEN 37 mg/dL (7-24) H [facility] CREATININE 7.42 mg/dL (0.80-1.30) [facility] ALERTED CRITICAL RESULT [facility]([id number]) [place] [address] ON 08/03/20 [place] [address] [place] [address] BUN/CREAT RATIO 5.0 RATIO (10.0-20.0) L [facility] GLUCOSE 110 mg/dL (70-99) H [facility] CALCIUM 7.9 mg/dL (8.4-10.2) L [facility] GFR 7 ml/min/1.73m2 (>59) L [facility] GFR ( AMER) 9 ml/min/1.73m2 (>59) L [facility] GFR INTERPRETATION Lab [facility] [place] --NORMAL KIDNEY FUNCTION OR MILD DISEASE - GFR >OR= 60CHRONIC KIDNEY DISEASE - GFR 15 - 59RENAL FAILURE - GFR <15 Est. GFR calculation based on the MDRDstudy equation, which assumes a steadystate for creatinine. Est. GFR should notbe used for medication dosing. ID Date Data Source [id number] 08/03/2020 10:29:27 PM EST [facility] [place] Name Value Range Interpretation Code Description Data Ale rce(s) Supporting Document(s) CKMB 1.9 ng/mL (0.0-5.0) [facility] [place] CKMB RELATIVE INDEX 1.1 {index_val} (0.0-4.0) [facility] ID Date Data Source [id number] 08/03/2020 10:08:53 PM EST [facility] Name Value Range Interpretation Code Description Data Ale rce(s) Supporting Document(s) CK 166 U/L (39-308) [facility] ID Date Data Source [id number] 08/03/2020 02:00:35 PM EST [facility] Name Value Range Interpretation Code Description Data Ale rce(s) Supporting Document(s) POC NOVA GLU 76 mg/dL (70-99) [facility] [place] [facility] ID Date Data Source [id number] 08/03/2020 01:36:35 PM EST [facility] Name Value Range Interpretation Code Description Data Ale rce(s) Supporting Document(s) &PDF [facility] VFMVUm3uYrQAHyKi22/PWXenOUJsa3DvQUvpDDh4YEesZEXxQ9CtgUqxFKzSIxQVI0efLn7UXKGJHHDm 0b3 [file] TQGC8AuLZYXuAWUCUAVX1rXSJHFJwwYSAZq6PWuQML AAjKq+pQHfafUoHPBZFGnSDp3jW1dQanbc6WGFMKVIbYFiywECgti7//EzHoeCBhHJ6zJDPOCjvWNT3V sAAAAAAAAAAAAAAAAAAAAAAAAAAAAAAAAAAAAAAAAAAAAAAAAAAAAAAAAAAAAAAAAAAAAAAAAAAAAAAA AAAAAAAAAAAAAAAAAAAAAAAAAAAAAAAAAAAAAAAAAA AAAAAAAAAAAAAAAAAAAAAAAAAAAAAAAAAAAAAAAAAAAAAAAAAAAAAAAAAAAAAAAAAAAAAAAAAAAAAAAA AAAAAAAAAAAAAAAAAAAAAAAAAAAAAAAAAAAAAAAAAAAAAAAAAAAAAAAAAAAAAAAAAAAAAAAAAAAAAAAA AAAAAAAAAAAAAAAAAAAAAAAAAAAAAAAAAAAAAAAAAA AAAAAAAAAAAAAAAAAAAAAAAAAAAAAAAAAAAAAAAAAAAAAAAAAAAAAAAAAAAAAAAAAAAAAAAAAAAAAAAA RIDHLQKHPENJHIKLWHYLBBUEJTRKHCkP9XrHVAQEhrvmNelFUzGW8RPzRdQI9rmb2TXjqdKEDuKbwAIa j1KPfjVA2QdVLtB6mEVrvdZ0MfJ2BtrHfvJM2KvDRg CK4PQT8nP1lzCbIkIss8v3CojlAwnVHuvkOhuTD8N4CudY9gB4NuM8SpZZA0tQAuO9ZtgO8UeYV1xGD4 DNWyOAXrJ1w1COEwIX7TMB2vpDovQEM8RsQpYsgfbTFcKGmeQzrkdGVEVDLkSHQsDLq+Rg7Py8LaLICl PVaCdk6zR0EpU21v28IkDJsnpCm3SY9DHlpxvuXgKi poQ43N4hTmpOV17bzzAaWsk9N1oh2OCSgmyM2vllJX4QFigMC4KJF/1tZEqKLFfoQIMJ2ILTIwlzax72 5EM3UADZWk1EScS7dzOuK4WR8xsn6GgC+PUcUSiHq2NpqFt29kw+/B9E209/93xon5YJpAANJIJJOUDA AAAAAAAAAAAAAA+vI5b7HEQZvvs8A2HhYmOPUtzjFJ MUmSZJggCNztxgKAHQR+7nr40jSdjxftsnyd0h8TQKgUKaCaS6KA8B7NGEj000A8G7r8cwBywATUSBHN JsDWTKBm8Sh0JUQN/VX1xwXM4L+0NsgqIaqsZ8J26qVQ1er5SxRRD5E5oYaaj7NewKZ4Ngs0tyOKlcQr WPjZP+1RZEq0AMmDZ9qfbLTV3/akBmQqphO4elr6DI eIrtfOmK4X/EajwIm6PBwrRvslZuI8OIcD7/GHN4DAXKtTNyb/+5n6AF1abd2qysDrQXOcz0U9N6p0iF 9aesz2rN/5DkpeX5AsFLtoMz5UmqE909SkXSUo8w+Qoso7tSw6ug0a66gSyc5fOw3Gf0eEAxd1ktLllG 8rP/cfceFVxngV5F0V5agu0g/n+yNbrrVX6wiSPo7X 07zipGKaiwkIqxlp/gJxguT+lKLVFd2lF+845SHOzhv9vj7VBL2hdtOT2x+8/MADD6+nylon operator/bYY49//fH6 [file] ICAgICAgICAgICAgICAgICAgICAgICAgICAgICAgICAgICAgICAgICAgICAgICAgICAgICAgICAgICAg ICAgICAgICAgICAgICAgDQogICAgICAgICAgICAgICAgICAgICAgICAgICAgICAgICAgICAgICAgICAg ICAgICAgICAgICAgICAgICAgICAgICAgICAgICAgIC AgICAgICAgICAgICAgICAgICAgICAgICAgDQogICAgICAgICAgICAgICAgICAgICAgICAgICAgICAgIC AgICAgICAgICAgICAgICAgICAgICAgICAgICAgICAgICAgICAgICAgICAgICAgICAgICAgICAgICAgIC AgICAgICAgDQogICAgICAgICAgICAgICAgICAgICAg ICAgICAgICAgICAgICAgICAgICAgICAgICAgICAgICAgICAgICAgICAgICAgICAgICAgICAgICAgICAg ICAgICAgICAgICAgICAgICAgDQogICAgICAgICAgICAgICAgICAgICAgICAgICAgICAgICAgICAgICAg ICAgICAgICAgICAgICAgICAgICAgICAgICAgICAgIC AgICAgICAgICAgICAgICAgICAgICAgICAgICAgDQogICAgICAgICAgICAgICAgICAgICAgICAgICAgIC AgICAgICAgICAgICAgICAgICAgICAgICAgICAgICAgICAgICAgICAgICAgICAgICAgICAgICAgICAgIC AgICAgICAgICAgDQogICAgICAgICAgICAgICAgICAg ICAgICAgICAgICAgICAgICAgICAgICAgICAgICAgICAgICAgICAgICAgICAgICAgICAgICAgICAgICAg ICAgICAgICAgICAgICAgICAgICAgDQogICAgICAgICAgICAgICAgICAgICAgICAgICAgICAgICAgICAg ICAgICAgICAgICAgICAgICAgICAgICAgICAgICAgIC AgICAgICAgICAgICAgICAgICAgICAgICAgICAgICAgDQogICAgICAgICAgICAgICAgICAgICAgICAgIC AgICAgICAgICAgICAgICAgICAgICAgICAgICAgICAgICAgICAgICAgICAgICAgICAgICAgICAgICAgIC AgICAgICAgICAgICAgDQogICAgICAgICAgICAgICAg ICAgICAgICAgICAgICAgICAgICAgICAgICAgICAgICAgICAgICAgICAgICAgICAgICAgICAgICAgICAg GWBgMCGbHHRvCERqOFVyYEPiBCPdRXRaBEw5G1rbDFSjIWEuIN4dMZy3Yv5+XWvDBsVeSXS0eyNmwU7Q BU1ei7TfGRyfKPMbf0UvIDz0CG4NFYPeQGfvUG6UXL exry5ZMDVxBDSciVASj3soOfJkNKU6FZDjHnqwXK0QYRGfP9tnlzPjYZIsKDBJTWaqXYBFTGoqCVQJQY WeCXWqYhHnEhXeUMOqSXCmJQBHVEY4TMHjAwIcUTkhWZ4Ml0ZysAC4VSn+Vj2XRZ7bl6YgFBnvPTCpRG 7riw8LSOnNOwChP5DdgzA2WGK5PXXpYe0AWKHaTJFy lPXySGVbVAHWPlVcP2OehC71MGLETx6+JZcrxqCnLftGVqG0KMWal5KnQIz1BQ3SQOVoYTf8wMVyCK0c xXBnuIEpADdoBB4IGSQ7XVwqFwNmJHErU8wLYpJwSGW2MxDpaPhwTC8TNrRkV6ZwexFyhSQtAAAnGKRE Cj4+YQtvnvBcZzpSRhW3PTOih6PzNGu9NG2BYQBwXX wcOV2OQCNzqB8eIOdyRR2GPaOwHpUnGBQQTwSwG17vwXJhXWn2D6KxNjRzGQFpSqjvGHTlINyuMjIgHE MgWyBdDQogID4+ID4+LPvoOR1AWPdildWiWIBtLv3HLQPrKPXlPF9jCXXjZKPcL1L7xRgbIEKHSoFwW4 qzhtjbQT9qAWXvC650qUewlsZoYUK9VZPpFa1FMDLr XDY5RCDdmGMhTvHiGYTWCOdeWH1KeKThLQL3rB3gUWcnAIWtVVCcT6iSZpAxjLqkFO26rXdkdaWezRPe DQo+Jv6DEA3jg7BrXMx0raRbRLccYLC2KItcHYWfIFInTYFqXOE6QRV9VKGGInDhTLElZFGpOVrsHTMi SCHrcg2CVEUcFJB1LIE7YrCeNJImANHlCTmbRTYcWG BoIEI2YIOeEVIuGN6MGoQjZTNhVADoHEXoJYLqOHAriv4MZGBwLNJxJoH0RtSrDQYaDBLuEBthLNQbUM FqUzVwZSZcIIXvBO6QUcCyYDDgYFC7FVXgRWGiMUAotb4PTEWxHISaRuEkXtAzSMCcYIYtVThhGAWqLN C9Hyx6MSDmGLQwGR8UCwQnOJHpCAr7MLnrWRMsZCUf vd0QDDYbEANdQGAhWCFhTBNaHSVmKKssDKHdNHDzPPUjJMOpRLQtIF6DRfXqXRGqJKLdOdljIGMpIAQe fb7TOXZgZPJnKnG6LNTzBJYyCNNgRHybCRCcOFXcDYfuSWGlRALfYM4DVjNoVMYnAEVxLiNdFQYoCHFr br4TVSPpJZHhGSlvJhJcHMCtNJWhROoiIWNvFUC8NW XsOJVbDGDpTB5KHoTbHJEyQCayQLRwTYWoGMCwls9MKDWhGOHjJwEkYVHnITLuBXDhBIyaSMCiEEG8De zwRJRkRWQtTG6UYtTbCHKkBMbtIZEaSYNjKICxvw7TIIJyUAAtSRF0VNJcJXFkRZDqYTjeKVPnYIB9Sp AmDKUaVDLwWF1XKgIiNSIuXqA4WrXqKLQhULGmez3R VWNyTTItVSM5MLRvMAAkYUAlELavQKLiQPY6UkFiQSGdPIEoCX5XGmOgBPBlIFM3TpkjJWNpCJQdql3C JEWgIKK9FXUgROFcCPXfJJOeWUghJMSjWHt0SPbwZOZcXDPpOM3MJkUcCBOqFuj9QFdkHTUtYVMwnl3H SFHeHXC1DCX6HJBcNBRcJKChQTewQWUdTTy1Arf8QY UfNJOlZI8MKzHcJGYlRNPjIaYuKIXkWTCctx6FOBFtVJVnHXKwBkYoLMVqEMKxTSejCJSvESTfUyJ2QN KsASVhFP2TQnDdODsjHLVAUuo4DKinQ4z0LBYzTy3NE5Jdi8VxPqDdGUYMIPdpGV7rciHvFBDwRe1GR4 oZZazsCYRkYtP7VjvwLKZrCUu2ScVfDGTqZUf9MSG2 VYPwKo7xQUO0VdDyXHp8B9R7I0G6JTJmUeEwRrR0VPTeYhxqP9A8PpEbWT6UNv9PSzB7XBV1hMCkGw3W OYSgYJb2BQhoPJHNMr3C ID Date Data Source [id number] 08/03/2020 08:47:43 AM EST [facility] Name Value Range Interpretation Code Description Data Ale rce(s) Supporting Document(s) EKG [facility] ZISMJg1yBbMAKfKzw8BuDiXjNHIcGP9qvla0Z2A9hOXuN4CwuZSkq2bzP6OhV4OrHBCkZLBAAD8LdUKn jb2 [file] C9XYznnE+yv2aOIqBRcbTogUEf3hM2YTPe0Nv2tHnx8B/Juárez/jjpWvwfRQwiiUZFwt5wLG2uz4MLiOQQZ [file] GPf4v/personal investment adviser/pfess9/K/jwUR83O4hV/5NB2fOMpo8DYBGj3A2sZ9wzdYMJKl73IUL+iGwjy2qp0nphsAq [file] Pig Furnace Operator+MkGh6hRk/x4PV0YnwQrijl0gAq5yk2QsVjT3N+k [file] 3P/3231FfQl4935Pqv75crqm52fLhk2F645E1f82/04DHn8pqigf+bSjS3wE/vn357/w7XT9+DkCqs1b /A03wePustpMbg0qx88ZCzV/f7zr9s1B1Fhecoh5nVbAlAgm/ul4f/e//LHyf/Io2wcmD11t0Fkpg5m4 foFNT+9vMj1/F4HF4//LUcpNgff5pK/3i10UoIJl// +Pd7Nxw/udeakoq00Iy1IZyrkTe0rR+74YkQF5L+fP/+3f9+/RRm3ZXUx9ZDd3365zR73c+/nmbMDxe4 4KeIxnOfm539+J/3S1g+/HD8WFqxy6rAk6gdAH1gjL3Hq/38/gB11AqnKLBPgkz6Gh2dcvNgsWl4wzyc x33c406i2p6eKC3/8Dh0kLf/C7Z538MUYU7of3FvBV KxLeGuMM0cazdeLYTcHL3npow7J5QgpFtmGLcFSROdQl2qlWTfXF7AIOT9POmcDOKgITChH2TeeB5bJ5 3vdQGqBqXsWIYWKU6MdeS4ZPB3FIG8LYPbTqThJBJoQX88JZHvWVKVEx1gudIpOegAZgCjLU9uzrb9N2 R7uKTgC361dWofwfXlWE1Cw0XuaVAyPE7OeQWqjIJt LIIxHZOlI4vrk1LcFYrmUSSNHv9sozKmOrdYYuPfDW6kohu2G5F0zPftizPpVLKCHAcoSbhsFZ9nvFme jqbeU7LqqLFnCPGgZ0SnZWMpl57UODHqPMuJVuSfSlNsWaK2AFk0UrurKbGwDJFrOICyWWMmKN6GhNQf UJGfFSYBUWrjZoxyHLDswA0kjLWSa7NcIH8LNfKEGe joMf3EQCUYBKGqESD1EEXwGKjrV6Q4AkyvD0AyHD8OF8DkIQJoCSLWBQYqgyMpQU6HtbQwrX0sYGnNMJ JCQVbSVHbxUjG9p02xmeZAXYZnQIMyMDdrJVQvGEUcBAMhQMWkCCTbLTLgPIYvSV5VX4QgNPKyPVIGHR N9x0XzJMJfiacoqhthBd3dgvYnJvl+WscaKMJdm9Sl EAwhQ4N7eESkU0TmT6VmHO5CmEDeJWwoRTHhAXVeJUIkX739vxPjIO5+EU6cv3GlDassPLJZEPHsPNXi XMBvRIK6YwMgMEPlSPRvSGVpRzL3CvRtZrMEIUVaURQ3MyNuBCHqBWCoETDnLTmwKLNhVVGhFhpaWXQz KFZwAQ4uAdSuVYLeHGY3INoyRMTcOECxvhTNGCYtFW DbQCUoXKB9OIDgTMMtSMfbCHXzXAZeZUB5UCQhHFKkZD0qOpXaQNYtIACeZfedAPFyPSXiacKGOAJcXA HoMWW6UeRzOPJcGTRkJBacFCZhVLByPaw4HMQiJLQnON9kEkEmQNSuMPN7XAdmARNhLTPuvzWRLKGkVA AwMDUyMyAwMDAwMCBuIAowMDAwMDAwNjQxIDAwMDAw GV4yOiRnALStZGC7YQSzAGRnSQRmbrGQGCUiIVMrMIj4PFOeFEMbNCOxEHauSLCqHJTpATZ0IRHfVYEk BM7bUpQvTRZtDHIhNCXgLTJaFYVxgnGCAJGuDUJnJJX6QWKlJEExCBWyDTzdBCVpARSuPvq4QNCjBJTn HJ7wZbZzQWGfRLJ0AIKcJYPkLPPhfvTQBQCdCYF1Hb A0JNMoROEtZJPoNIodQJAdLPFyScU1NSJpVCCtKG3aAtTuAPKoRRN2IeDfYFNsPDJuerVUWVXdKVQaMQ R2QpIcJYDiOKYgMAzqZVRsBYKeIBXpZGJ2ZTD4LHFhUhZjYHrgKNZKOYyUF0PmeoHrXcJJH9nlYv7rBm WcYUAOO5Dlz9YgOEGoTIPRCh2+UwY0BYX7sGAuWdm3CrE0RWbjKILGVg== ID Date Data Source [id number] 07/29/2020 12:00:00 AM EST [facility] Name Value Range Interpretation Code Description Data Ale rce(s) Supporting Document(s) SARS coronavirus 2 RNA [Presence] in Res piratory specimen by ROZINA with probe detection [facility] This lab was ordered by [facility] and reported by [employer]. ID Date Data Source [id number] 07/23/2020 10:19:00 AM EST [place] ([facility], ) Name Value Range Interpretation Code Description Data Ale rce(s) Supporting Document(s) Ljojc-6-Zonmkxyifpg [Mass/volume] in Serum or Plasma 3.8 ng/mL Normal (applies to non-numeric results) [place] ([facility], ) THE AFP ASSAY IS PERFORMED ON THE Cellular BioengineeringAUR BY CHEMILUMINESCENCE AND SHOULD NOT BE COMPARED INTERCHANGEABLY WITH OTHER METHODS. IT SHOULD NOT BE USED ALONE A SCREENING TEST OR DIAGNOSIS FOR THE PRESENCE OR ABSENCE OF MALIGNANT DISEASE. THESE RESULTS ARE NOT INTERPRETABLE IN FEMALES. PREDICTIONS OF DISEASE RECURRENCE SHOULD NOT BE BASED SOLELY ON VALUES OBTAINED FROM SERIAL PATIENT SERUM VALUES. ID Date Data Source [id number] 07/23/2020 10:19:00 AM EST [facility] ([facility], ) Name Value Range Interpretation Code Description Data Ale rce(s) Supporting Document(s) Ast/Sgot 32 U/L 7-37 Normal (applies to non-numeric resul ts) [place] ([facility], ) Alt/SGPT 27 U/L 12-78 Normal (applies to non-numeric resul ts) [place] ([facility], ) Bilirubin,Total 0.8 mg/dL 0.2-1.0 Normal (applies to non-numeric results) [place] ([facility], ) Bilirubin,Direct 0.2 mg/dL 0.0-0.2 Normal (applies to non-numeric results) [facility] ([facility]) Alkaline Phosphatase 137 U/L 45-117 Above high normal [facility] ([facility]) Albumin/Globulin Ratio 0.6 Normal (applies to non-n umeric results) [facility] ([facility]) Total Protein 7.9 GM/DL 6.4-8.2 Normal (applies to non-numeric re sults) [facility] ([facility]) Albumin 3.1 GM/DL 3.2-5.2 Below low normal [facility] ( [facility]) ID Date Data Source [id number] 01/20/2020 03:08:00 PM EDT [facility] INFORMATIONPatient MRN Name Date of Age Gend*PT [id number] Kalyani Tyson 1950 70 years M OPPT Location Admission Date/Time Visit ID Attending Provider --- --- --- Maikel Gamboa DO([id number]) EPI ID CSN Admitting Provider [id number] ---OUTPATIENT / OBSERVATIONAL SURGICAL OR INVASIVE PROCEDUREName: Kalyani Tyson : 1950 Sex: male Care Provider[facility] Physician: Dr. Gamboa.HISTORY OF PRESENT ILLNESS: 70 [...] RIGHT ; Surgeon: Makayla Krishnan MD; Location: [facility] [place]; Service: Vascular; Laterality:Right; CATARACT EXTRACTION, BILATERAL CORONARY ARTERY BYPASS GRAFT KNEE SURGERYALLERGIES: No Known Drug AllergiesMEDICATIONS:Prior to Admission medicationsMedication Sig Start Date End Date Taking? Authorizing ProviderB Tlivakm-L-Nsloe Acid (NEPHRO-BARBARA PO) Take 1 tablet by [...] Historical Provider, vitamin D, Ergocalciferol, 1.25 MG (14321 UT) CAPS Take 1 capsule by mouth oncea week Historical Provider, Bonitaspirin 81 MG chewable tablet Chew 81 mg daily 01/20/20 Historical Provider, Bonitatorvastatin (LIPITOR) 20 MG tablet Take 20 mg by mouth daily 01/20/20Historical Provider, ISABELA Zexybiu-W-Nbxrp Acid (CHE-BARBARA PO) daily 09/25/17 01/20/20 Historical Provider,VAISHALIalcium Acetate, Phos Binder, (PHOSLO) 667 MG CAPS 3 (three) times a day Historical Provider, VAISHALIholecalciferol (VITAMIN D3) 1.25 MG (85509 UT) CAPS once a week 09/25/17 01/20/20Historical [...] without cervicaladenopathy. No thyromegaly.MENTAL / NEUROLOGICAL STATUS: [id number]: Clear to auscultation. No wheezes, rhonchi or [...] parts of this document, were dictated using [employer] software. A reasonable attempt at proofreading has beenmade to minimize errors. Please call with any questions or corrections.* Name Value Range Interpretation Code Description Data Ale rce(s) Supporting Document(s) ID Date Data Source [id number] 01/20/2020 02:39:03 PM EDT [facility] Name Value Range Interpretation Code Description Data Ale rce(s) Supporting Document(s) EKG [facility] ECWJWt4cObHCUxFfn9DsYgSsQRAnVJ1vupi7M2I5pSOdD4SxfWKlr5ogK9MnL1DdQNYhCDWJEU3MuAQu jb2 [file] Xz8ZP//9+sarbjit+H/++q9/++t/+dv/8aeW58/f/u+//tvf/bydu3P0p2/Mp3z+92//+arls92OA//8889J 9vnz7z/+/Owz852QFHE+JBFezOnajDd32evl72aCJm ZueytNqkjctj7ReEJJJDMasFVOSHplzAAIicjigwmGSP+LscJqe8G8yQhisfjHXQ+YusNal7Y5jJvnsj qVXK+ZipFau5w57UzvjkaVWR+QvxHke2o98PkgunaRMV+LyvLwp6c64EtdmehMOU+QnvLyk0N7vCngvm q1XK+TreFxg2B7rFvefqu7KK+NohKur1C5xPteoac5 XK+LoyOvw7961Sgleoq9RF+hFGqWUh88thiIdOviI0z7rt5FTB1GmwmDpBms74P8Lz5UMX9JmqpQonvN MvPjcGEzaVuD4Tgi44h6axcQdSGcwPaX9Ggu25t1uxjTrZScoNnF0Tlq4/xy7LMxyY3X5Nk2Bhz9Xtgy C/DmnM1V4Ch2Lle8NamdR/TkxM8B7Fs9Llm5Ae+zF6 evXK+Smv4lt4724MqdcLqaVP+Lko2lr7435NmdhRcrIS+Pfi2hl5795x03KJ2XAbZrg5u4+RyuW83Vg5 fs/TN3ld6q67dC7RJ9Yk+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 instructor+bVuevYX61piSIv+njd48NgJpoJuOxxGk6Yjs6DyTQslobiAKKbclGuz [file] EN7Ts9rOc8ywwMC5cO0eheB6qxsYzgj+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 [file] AwMDUyMyAwMDAwMCBuIAowMDAwMDAwNjQxIDAwMDAw JE4kEpKeOYPcLZB3KBFrWWPrGGTnwgTJAKNwWFDhFTu2AYSkDFAhGFPuEBzvXQOmHTLsYFX5DPTtVIPb CJ7bXmCaGKAyJDYrYKSuOTIjUKIeezIPKLUyRMNqJIO7CBMmVOGiTKYlFGpnSJQoXZIbBka8TXFhBJOf YT8hFfIyKSKgIDC3LQDmZVNhPVZfpuJEPFWtBWC9NK dlEWCoQBMvYCJkBZhyFYLgKVJnUhX7UVYhOORoJC8oKbBkTPFsUDZ2GkJeRBDwPNTdrmNLRCIsFJKiFG F6KeJtMRBjWCTdJOahCTCoCFZzYQVrWHJ6YZE8YZKhRfMrRQglPTNDDOeCF8BonkLvIpOKT4oxJp4dZh LoZCIDU9Pse1HqMWCaKLEOKx1+GfR5RVR0nZOiPjt8WPP2GFkwCZGXXl== ID Date Data Source [id number] 01/20/2020 07:45:04 PM EDT [facility] Name Value Range Interpretation Code Description Data Ale rce(s) Supporting Document(s) SODIUM 136 mmol/L (136-145) [facility] POTASSIUM 4.1 mmol/L (3.6-5.2) [facility] CHLORIDE 97 mmol/L (100-108) L [facility] CO2 32 mmol/L (22-31) H [facility] ANION GAP 7 mmol/L (7-16) [facility] UREA NITROGEN 25 mg/dL (7-24) H [facility] CREATININE 6.14 mg/dL (0.80-1.30) HH [facility] RESULT VERIFIED BY REPEAT TESTING.RESULT (S) CALLED TO AND READ BACK BY DR TABARES AT [id number] ON [id number] AT 8942 [place] [address] BUN/CREAT RATIO 4.1 RATIO (10.0-20.0) L [facility] GLUCOSE 129 mg/dL (70-99) H [facility] CALCIUM 8.4 mg/dL (8.4-10.2) [facility] GFR 9 ml/min/1.73m2 (>59) L [facility] GFR ( AMER) 11 ml/min/1.73m2 (>59) L [facility] GFR INTERPRETATION [facility] --NORMAL KIDNEY FUNCTION OR MILD DISEASE - GFR >OR= 60CHRONIC KIDNEY DISEASE - GFR 15 - 59RENAL FAILURE - GFR <15 Est. GFR calculation based on the MDRDstudy equation, which assumes a steadystate for creatinine. Est. GFR should notbe used for medication dosing. ID Date Data Source [id number] 01/20/2020 06:20:23 PM EDT [facility] Name Value Range Interpretation Code Description Data Ale rce(s) Supporting Document(s) HEMOGLOBIN A1C @ 8.1 % (4.0-6.0) H [facility] Performed using [facility] immunoassa y.Care must be taken when interpreting LcV5ppsrskym in patients with a hemoglobin variantor decreased erythrocyte lifespan. Values 5.7 - 6.4% suggest prediabetes.Values >=6.5% are diagnostic for diabetes.REFERENCE: DIABETES CARE 2018: 41(S13-S27). EST AVERAGE GLUCOSE 186 mg/dL [facility] ID Date Data Source [id number] 01/20/2020 05:24:10 PM EDT [facility] Name Value Range Interpretation Code Description Data Ale rce(s) Supporting Document(s) WBC 3.7 10*3/uL (4.1-11.0) L [facility] RBC 4.22 10*6/uL (4.60-6.10) L [facility] HGB 12.0 g/dL (13.5-18.0) L [facility] HCT 36.5 % (41.0-53.0) L [facility] MCV 86.5 fL (80.0-95.0) [facility] MCH 28.6 pg (27.0-32.0) [facility] MCHC 33.0 g/dL (32.0-36.0) [facility] RDW 14.8 % (10.5-14.5) H [facility] PLT 79 10*3/uL (150-450) L [facility] MPV 8.5 fL (7.1-10.7) [facility] ID Date Data Source [id number] 10/15/2019 05:55:20 PM EST [facility] Name Value Range Interpretation Code Description Data Ale rce(s) Supporting Document(s) &PDF [facility] YOAKJf8hKlHYAhHl80/ECReaXQRci2AiIVfrATj3MSunGTMbU1DpaDvkUPkWHaKLB7mqYn7ISUWTWBGv vci [file] AgICAgICAgICAgICAgICAgICAgICAgICAgICAgICAg ICAgICAgICAgICAgICAgICAgICAgICAgICAgICAgICAgICAgICAgICAgICAgICAgICAgICAgICAgICAg ICANCiAgICAgICAgICAgICAgICAgICAgICAgICAgICAgICAgICAgICAgICAgICAgICAgICAgICAgICAg ICAgICAgICAgICAgICAgICAgICAgICAgICAgICAgIC AgICAgICAgICAgICANCiAgICAgICAgICAgICAgICAgICAgICAgICAgICAgICAgICAgICAgICAgICAgIC AgICAgICAgICAgICAgICAgICAgICAgICAgICAgICAgICAgICAgICAgICAgICAgICAgICAgICANCiAgIC AgICAgICAgICAgICAgICAgICAgICAgICAgICAgICAg ICAgICAgICAgICAgICAgICAgICAgICAgICAgICAgICAgICAgICAgICAgICAgICAgICAgICAgICAgICAg ICAgICANCiAgICAgICAgICAgICAgICAgICAgICAgICAgICAgICAgICAgICAgICAgICAgICAgICAgICAg ICAgICAgICAgICAgICAgICAgICAgICAgICAgICAgIC AgICAgICAgICAgICAgICANCiAgICAgICAgICAgICAgICAgICAgICAgICAgICAgICAgICAgICAgICAgIC AgICAgICAgICAgICAgICAgICAgICAgICAgICAgICAgICAgICAgICAgICAgICAgICAgICAgICAgICANCi AgICAgICAgICAgICAgICAgICAgICAgICAgICAgICAg ICAgICAgICAgICAgICAgICAgICAgICAgICAgICAgICAgICAgICAgICAgICAgICAgICAgICAgICAgICAg ICAgICAgICANCiAgICAgICAgICAgICAgICAgICAgICAgICAgICAgICAgICAgICAgICAgICAgICAgICAg ICAgICAgICAgICAgICAgICAgICAgICAgICAgICAgIC AgICAgICAgICAgICAgICAgICANCiAgICAgICAgICAgICAgICAgICAgICAgICAgICAgICAgICAgICAgIC AgICAgICAgICAgICAgICAgICAgICAgICAgICAgICAgICAgICAgICAgICAgICAgICAgICAgICAgICAgIC ANCiAgICAgICAgICAgICAgICAgICAgICAgICAgICAg ICAgICAgICAgICAgICAgICAgICAgICAgICAgICAgICAgICAgICAgICAgICAgICAgICAgICAgICAgICAg ICAgICAgICAgICANCjw/pBIpS7mjnYFayuN8D2feZl8FUa9XRY3xo4JtHVOuCPqgmbJpDkfIQaPeMHSx PxzOFht0BUuzDE2KjCRyE8RzL0SmZTxgUX3UGOBkOB ZbvTJuXMHmCGJjDyN5APIqCPvsGE5HvIEaMMksUDHiLZVhJfXuDRYmWX1YAKWbZ459ofYxTr4RAu3SGj YeDD6liz3RMjIeMEAgLgeQXma1VYvzTG1TdWJgC0GgbSFte7gTMgUtP3PGYOZ0GWWtFe0HSHKgFwYkHC CgYWjvEG4dPEXnZVYIpYhjqeL0NI4ZKU0mamBdEP2V MxXaBx7qMw7AMwMjU3JiI1PlRVDqIMBAMUwhAF5ASYByXRL4MJIdTFYyAPGGTrCmD87qNM3WS2Dth90u JbE4UXLeZcYuXQvtDQ94kZfzzwGtaOUryRvmXN0IEc6+DQplbmRvYmoNCnhyZWYNCjAgMjINCjAwMDAw ZZLpIDMaYrA1XbZdQm6UVJNvAGPlSLPvKaTlQTWyCU JjCEgjBZClFXR3CtB6YLIaRQUlOI2ULyZxQKIvAoG0HCPtKWRxKYFpwd0CFIEgWVQbGJA9BxSaGEHfLP MqSFkwQRYlFIIaYiMdCVDsKZJkRL1RLqRzRLFmULA6RsQfYIQuBGLknf2RCACsSONsVMvlWzXjCNQdLB KkPIrdGCWnTJO2JQH1CNOhESXbQM7CSeEfYHYcYBR5 MyQyRHKnMQXkdi5JUAZeLTTjVeD0EYFaOEFiMQSpPOuvZXQnUCG1OcPcHURuPTAsRV9SWtAuRWAjYNkb WFFjTWZiXWLvaw8TOTMiPKQjWOOwGFTaAJIdDPKsKKrhHMZyKHV1IPhhOOGdGEWfYX5GHfPhSCLwESf9 GFesUALxLMGnbr6EBMFmLMNhIHy5ZWIlIFMbIBTfDQ dqTJFgMEW0SDF2CYEsAOXlNI9SGjGkLQDuZZL7ZhjgJXCuSKBqav4AMRSpDLJwOGS4UKFaDJLgWWWzRC vqVYPsULQ6DAx1PLJlUGBtIW3ZFsPvHXNjPmY2ChZfAMGbMHRlak1AcTXzyMxwyy2NWEzCKo8QgAqxHT XvVYzfSq6pdUOeZHSxBFWTDp4AgmYdAGIfNEFQUSxk DMYjVTXuVUKnHLjwTqMdUMS6UDv7VBRcJTPlGoYqQLQtGlk5DcK6XcB9AUCgNJGuL3V3MAT6IeMnH5Yt JISjQ3QnFJV1DRl+WE9gLSk+Le7Ei9MpafD2yjXkDPcwMJzaUq7FUZXHH2NZKw== Procedure Social History Code Duration Value Status Description Data Source(s ) Smoking 09/28/2020 12:00:00 AM EST Never Smoker completed Never S moker eCW1 ([facility]) Smoking 09/14/2020 12:00:00 AM EST Never Smoker completed Never S moker eCW1 ([facility]) Alcohol intake 08/07/2020 12:00:00 AM EST Yes completed [facility] Smoking 08/07/2020 12:00:00 AM EST Former smoker completed Former smoker [facility] Alcohol intake 08/03/2020 12:00:00 AM EST Yes completed [facility] Smoking 08/03/2020 12:00:00 AM EST Former smoker completed Former smoker [facility] Smoking 07/13/2020 12:00:00 AM EST Never Smoker completed Never S moker eCW1 ([facility]) Smoking 07/13/2020 12:00:00 AM EST Never Smoker completed Never S moker eCW1 ([facility]) Smoking 06/29/2020 12:00:00 AM EST Never Smoker completed Never S moker eCW1 ([facility]) Smoking 06/29/2020 12:00:00 AM EST Never Smoker completed Never S moker eCW1 ([facility]) Smoking 06/08/2020 12:00:00 AM EDT Never Smoker completed Never S moker eCW1 ([facility]) Smoking 06/08/2020 12:00:00 AM EDT Never Smoker completed Never S moker eCW1 ([facility]) Smoking 06/08/2020 12:00:00 AM EDT Never Smoker completed Never S moker eCW1 ([facility]) Smoking 06/08/2020 12:00:00 AM EDT Never Smoker completed Never S moker eCW1 ([facility]) Smoking 03/02/2020 12:00:00 AM EDT Never Smoker completed Never S moker eCW1 ([facility]) Alcohol intake 01/20/2020 12:00:00 AM EDT No completed [facility] Smoking 01/20/2020 12:00:00 AM EDT Never smoker completed Never s moker [facility] Vital Signs ID Date Data Source UNK Name Value Range Interpretation Code Description Data Source(s) Body surface area Derived from formula 2.23 m2 2.23 m2 [facility] ([facility]) Body weight 111.586 kg 111.586 kg [facility] ([facility]) [place] body weight 154 [lb_av] 154 [lb_av] [facility] ([facility]) Body mass index (BMI) [Ratio] 37.4 kg/m2 37.4 k g/m2 [facility] ([facility]) Body weight 246.00 [lb_av] 246.00 [lb_av] [facility] T ([facility]) Body height 68 [in_i] 68 [in_i] [facility] ([facility]) 5'8" Diastolic blood pressure 80 mm[Hg] 80 mm[Hg] [facility] ([facility]) Systolic blood pressure 140 mm[Hg] 140 mm[Hg] M EDENT ([facility]) Diastolic blood pressure 64 mm[Hg] 64 mm[Hg] eCW1 ([facility]) Systolic blood pressure 111 mm[Hg] 111 mm[Hg] e CW1 ([facility]) Body temperature 97 [degF] 97 [degF] eCW1 ([facility]) Respiratory rate 18 /min 18 /min eCW1 ([facility]) Heart rate 64 /min 64 /min eCW1 ([facility]) Body mass index (BMI) [Ratio] 36.02 kg/m2 36.02 kg/m2 eCW1 ([facility]) Body height [in_i] eCW1 ([facility]) Body weight kg eCW1 ([facility]) Body weight 230 [lb_av] 230 [lb_av] eCW1 ([facility]) Body mass index (BMI) [Ratio] 38.01 kg/m2 38.01 kg/m2 [facility] Body weight 113.399 kg 113.399 kg [facility] Body height 172.7 cm 172.7 cm [facility] Respiratory rate 16 /min 16 /min [facility] Heart rate 84 /min 84 /min [facility] Diastolic blood pressure 60 mm[Hg] 60 mm[Hg] [facility] Systolic blood pressure 106 mm[Hg] 106 mm[Hg] [facility] Oxygen saturation in Arterial blood by Pulse oximetry 99 % 99 % [facility] Respiratory rate 16 /min 16 /min [facility] Heart rate 90 /min 90 /min [facility] Diastolic blood pressure 63 mm[Hg] 63 mm[Hg] [facility] Systolic blood pressure 101 mm[Hg] 101 mm[Hg] [facility] Body mass index (BMI) [Ratio] 38.05 kg/m2 38.05 kg/m2 [facility] Body weight 113.5 kg 113.5 kg [facility] post Wt. Body temperature 36.56 Temitope 36.56 Temitope [facility] Body height 172.7 cm 172.7 cm [facility] Diastolic blood pressure 59 mm[Hg] 59 mm[Hg] eCW1 ([facility]) Systolic blood pressure 125 mm[Hg] 125 mm[Hg] e CW1 ([facility]) Body temperature 97.2 [degF] 97.2 [degF] W1 ( [facility]) Respiratory rate 16 /min 16 /min W1 ([facility]) Heart rate 56 /min 56 /min eCW1 ([facility]) Body mass index (BMI) [Ratio] 37.43 kg/m2 37.43 kg/m2 eCW1 ([facility]) Body height [in_i] eCW1 ([facility]) Body weight 239 [lb_av] 239 [lb_av] eCW1 ([facility]) Diastolic blood pressure 66 mm[Hg] 66 mm[Hg] eCW1 ([facility]) Systolic blood pressure 124 mm[Hg] 124 mm[Hg] e CW1 ([facility]) Body temperature 98 [degF] 98 [degF] eCW1 ([facility]) Respiratory rate 16 /min 16 /min eCW1 ([facility]) Heart rate 87 /min 87 /min eCW1 ([facility]) Body mass index (BMI) [Ratio] 37.43 kg/m2 37.43 kg/m2 eCW1 ([facility]) Body height [in_i] eCW1 ([facility]) Body weight 239 [lb_av] 239 [lb_av] eCW1 ([facility]) Diastolic blood pressure mm[Hg] eCW1 ([facility]) Systolic blood pressure 130 mm[Hg] 130 mm[Hg] e CW1 ([facility]) Body temperature 97.7 [degF] 97.7 [degF] eCW1 ( [facility]) Respiratory rate 17 /min 17 /min eCW1 ([facility]) Heart rate 86 /min 86 /min eCW1 ([facility]) Body mass index (BMI) [Ratio] 37.43 kg/m2 37.43 kg/m2 eCW1 ([facility]) Body height [in_i] eCW1 [facility] [facility]) Body weight kg eCW1 ([facility]) Body weight 239 [lb_av] 239 [lb_av] eCW1 ([facility]) Diastolic blood pressure 60 mm[Hg] 60 mm[Hg] eCW1 ([facility]) Systolic blood pressure 120 mm[Hg] 120 mm[Hg] e CW1 ([facility]) Body temperature 98.5 [degF] 98.5 [degF] eCW1 ( [facility]) Respiratory rate 18 /min 18 /min eCW1 ([facility]) Heart rate 87 /min 87 /min eCW1 ([facility]) Body mass index (BMI) [Ratio] 37.43 kg/m2 37.43 kg/m2 eCW1 ([facility]) Body height [in_i] eCW1 ([facility]) Body weight kg eCW1 ([facility]) Body weight 239 [lb_av] 239 [lb_av] eCW1 ([facility]) Diastolic blood pressure 55 mm[Hg] 55 mm[Hg] eCW1 ([facility]) Systolic blood pressure 106 mm[Hg] 106 mm[Hg] e CW1 ([facility]) Body temperature 98.5 [degF] 98.5 [degF] eCW1 ( [facility]) Respiratory rate 19 /min 19 /min eCW1 ([facility]) Heart rate 88 /min 88 /min eCW1 ([facility]) Body mass index (BMI) [Ratio] 37.55 kg/m2 37.55 kg/m2 W1 ([facility]) Body height [in_i] eCW1 ([facility]) Body weight 239.8 [lb_av] 239.8 [lb_av] eCW1 ([facility]) Body surface area Derived from formula 2.24 m2 2.24 m2 MEDENT ([facility], ) Body weight 112.096 kg 112.096 kg MEDENT ([facility], ) [place] body weight 154 [lb_av] 154 [lb_av] MEDEN T ([facility], ) Body mass index (BMI) [Ratio] 37.6 kg/m2 37.6 k g/m2 MEDENT ([facility], ) Body weight 247.12 [lb_av] 247.12 [lb_av] MEDEN T ([facility]) Body height 68 [in_i] 68 [in_i] [place] ([facility]) 5'8" Heart rate 87 /min 87 /min [facility] ([facility]) Diastolic blood pressure 69 mm[Hg] 69 mm[Hg] [facility] ([facility]) Systolic blood pressure 126 mm[Hg] 126 mm[Hg] [facility] ([facility]) Body weight 112.493 kg 112.493 kg [facility] ([facility]) Body mass index (BMI) [Ratio] 37.7 kg/m2 37.7 k g/m2 [facility] ([facility]) Body weight 248.00 [lb_av] 248.00 [lb_av] MEDEN T ([facility]) Body height 68 [in_i] 68 [in_i] [place] ([facility]) 5'8" Diastolic blood pressure 71 mm[Hg] 71 mm[Hg] [facility] ([facility]) Systolic blood pressure 124 mm[Hg] 124 mm[Hg] [facility] ([facility]) Body mass index (BMI) [Ratio] 37.9 kg/m2 [...] blood pressure 74 mm[Hg] 74 mm[Hg] eCW1 ([facility]) Systolic blood pressure 128 mm[Hg] 128 mm[Hg] e CW1 ([facility]) Body temperature 98.2 [degF] 98.2 [degF] eCW1 ( [facility]) Respiratory rate 20 /min 20 /min eCW1 ([facility]) Heart rate 81 /min 81 /min eCW1 ([facility]) Body mass index (BMI) [Ratio] 38.21 kg/m2 38.21 kg/m2 eCW1 ([facility]) Body height [in_i] eCW1 ([facility]) Body weight 244 [lb_av] 244 [lb_av] eCW1 ([facility]) Oxygen saturation in Arterial blood by Pulse oximetry 99 % 99 % [facility] Body mass index (BMI) [Ratio] 37.25 kg/m2 37.25 kg/m2 [facility] Body weight 111.131 kg 111.131 kg [facility] Body height 172.7 cm 172.7 cm [facility] Heart rate 92 /min 92 /min [facility] Diastolic blood pressure 64 mm[Hg] 64 mm[Hg] [facility] Systolic blood pressure 117 mm[Hg] 117 mm[Hg] [facility] Body weight 111.586 kg 111.586 kg [place] ([facility], ) Body mass index (BMI) [Ratio] 37.4 kg/m2 37.4 k g/m2 MEDENT ([facility], ) Body weight 246.00 [lb_av] 246.00 [lb_av] MEDEN T ([facility], ) Body height 68 [in_i] 68 [in_i] MEDENT ([facility], ) 5'8" Diastolic blood pressure 58 mm[Hg] 58 mm[Hg] [facility] Systolic blood pressure 116 mm[Hg] 116 mm[Hg] M [facility] ([facility]) Body weight 110.225 kg 110.225 kg [facility] ([facility]) Body mass index (BMI) [Ratio] 36.9 kg/m2 36.9 k g/m2 [facility] ([facility]) Body weight 243.00 [lb_av] 243.00 [lb_av] [facility] Body height 68 [in_i] 68 [in_i] [facility] ([facility]) 5'8" Diastolic blood pressure 67 mm[Hg] 67 mm[Hg] [facility] ([facility]) Systolic blood pressure 109 mm[Hg] 109 mm[Hg] [facility] ([facility]) Patient Treatment Plan of Care Planned Activity Planned Date Details Description Data Source (s) ezetimibe 10 MG Oral Tablet 08/09/2020 12:00:00 AM [facility] clopidogrel 75 MG Oral Tablet 08/04/2020 12:00:00 AM [facility] atorvastatin 40 MG Oral Tablet 08/04/2020 12:00:00 AM [facility] Aspirin 81 MG Chewable Tablet 08/04/2020 12:00:00 AM [facility] clopidogrel 75 MG Oral Tablet 06/08/2020 12:00:00 AM EDT [facility] Propranolol Hydrochloride 10 MG Oral Tablet 05/28/2020 12:00:00 AM EDT [facility] b complex-vitamin c-folic acid (NEPHRO-BARBARA) 0.8 MG TA BS 05/28/2020 12:00:00 AM EDT [facility] sildenafil 50 MG Oral Tablet 05/13/2020 12:00:00 AM EDT [facility]
--- NOTE | 2020-10-14 23:45 | HPEPDOC ---
[facility] Medical History & Physical Date of Admission Oct 14, 2020 Date of Service: Oct 14, 2020 Primary Care Physician: MK MONTALVO DO Other Provider Dr.Slezka Dr. Raines Attending Physician: TOY QUAN MD History and Physical TIME OF SERVICE: 930pm CHIEF COMPLAINT: sent from office HISTORY OF PRESENT ILLNESS: is a 70 yr old M that is well known to our service; today the patient was sent by DAMIEN Barton who works with for evaluation of melena. The patient told the PA that he has been having dark tarry stools since at least of last year. The PA called his dialysis center who told her that the patients Hg was 8.6; the patient also mentioned that had plans to do a c-scope in the near future. Per the PA called who will perform an endoscopic procedure tomorrow & based on his exam heme occult was positive. Unfortunately I was unable to get a hold of to confirm the plans. At the time of my assessment the patient denied having any acute c/o but admitted to having shortness of breath especially when he moves his wine crates and feeling dizzy. He denied feeling having chest pain, having abdominal pain or vomiting blood. Despite having two ZHAO placed in the RCA and LCx to manage severe on Aug [address] Fernando at [facility] the patient reports not taking Plavix for about one month. Per consult DAPT was to be continued for 1 yr. The patient was not able to provide a clear answer about why he was only taking ASA but had stopped the Plavix. Based on the discharge summary, dated Aug 29 2020, the patient was admitted here from Aug 23 to 2020 for sepsis; the Plavix was discontinued because of hemoptysis & acute blood loss anemia. The plan was for the patient to have endoscopy done on an out patient basis. 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 DLP History of left thigh abscess and staph epidermidis bacteremia Sep 2019 Class 2 obesity NIKHIL / Dyssomnia Left eye cataract surgery History of right pleural effusion requiring right-sided chest tube placement Appendectomy Left medial meniscal tear managed with with partial medial meniscectomy of the posterior horn of the medial meniscus Grade 2 chondromalacia of the medial femoral condyle managed with chondroplasty of the medial femoral condyle Right third toe Amputation to manage osteomyelitis SOCIAL HISTORY: He doesnt smoke, drinks alcohol occasionally, enjoys making wine in his spare time, occasionally uses cannabis, and is a (his passed a way a few years ago). FAMILY HISTORY: Mother - DM, Throat cancer / Brother - AK / Uncle - ESRD ALLERGIES: Please see below. HOME MEDICATIONS: Please see below. PHYSICAL EXAMINATION: Vital Signs Date Time Temp Pulse Resp B/P (MAP) Pulse Ox O2 Delivery O2 Flow Rate FiO2 10/14/20 18:31 98.3 80 18 122/61 (81) 98 Room Air GENERAL APPEARANCE: well nourished & developed /NAD HEENT: EOMI / no scleral icterus CARDIOVASCULAR: RRR/NMRG LUNGS: CTAB on RA / no coughing ABDOMEN: obese /soft & NT MUSCULOSKELETAL: GEM x 4/ palpable thrill at RUE AV fistula INTEGUMENT: slightly tanned / no generalized pallor / old well healed post surgical scars at LUE and RLE NEUROLOGICAL: CN 2-12 intact / speech not dysarthric PSYCHIATRIC: A&Ox 3 / able to understand and follow all commands LABORATORY DATA: 10/14/20 19:16 10/15/20 00:14 Immature Granulocyte % (Auto) 0.3, Neutrophils (%) (Auto) 53.8, Lymphocytes (%) (Auto) 27.7, Monocytes (%) (Auto) 13.5H, Eosinophils (%) (Auto) 3.9H, Basophils (%) (Auto) 0.8, Neutrophils # (Auto) 2.1, Lymphocytes # (Auto) 1.1L, Monocytes # (Auto) 0.5, Eosinophils # (Auto) 0.2, Basophils # (Auto) 0.0, Reticulocyte # (auto) 35.1, Nucleated Red Blood Cells % (auto) 0.0, Immature Platelet Fraction 3.3, Percent Reticulocyte Count 0.8, Reticulocyte Hemoglobin Equivalent 31.6, Prothrombin Time 14.3H, Prothromb Time International Ratio 1.09, Activated Partial Thromboplast Time 33.2, Anion Gap 9, Glomerular Filtration Rate 7.8L, Calcium Level 8.0L, Iron Level 89, Total Iron Binding Capacity 256, Transferrin % Saturation 34.8, Ferritin 434H, Total Bilirubin 0.6, Direct Bilirubin 0.2, Aspartate Amino Transf (AST/SGOT) 27, Alanine Aminotransferase (ALT/SGPT) 22, Alkaline Phosphatase 132H, Total Creatine Kinase 140, Creatine Kinase MB 3.3, Creatine Kinase MB Relative Index 2.36, Troponin I 0.02, Total Protein 7.9, Albumin 3.4, Albumin/Globulin Ratio 0.8, Lipase 399H IMAGING: Chest xray IMPRESSION: No active disease seen. Prior sternotomy with interrupted sternotomy sutures again noted. MICROBIOLOGY: Coronavirus (COVID-19)(PCR) NEGATIVE, Influenza Type A (RT-PCR) NEGATIVE, Influenza Type B (RT-PCR) NEGATIVE, Respiratory Syncytial Virus (PCR) NEGATIVE ASSESSMENT: Mr. Tyson is a 70year-old with a history of liver cirrhosis w portal HTN, duodenal ulcer, CAD/CABG & ZHAO placed 2 months ago, HFpEF, ESRD, NIDDM, CVA, obesity, and multiple surgeries who was sent from his cardiologists office for evaluation of melena. PLAN: 1 Melena / suspected UGIB He has a hx of esophageal varices & duodenal ulcer. Because he has ESRD he is at increased risk of developing AVMs. Other possible causes include alcoholic erosive gastritis or portal hypertensive gastropathy. Dawit-Blatchford Score to identify low risk UGIB = 9 to 11 points = high risk for GI bleed Rockall Score (pre-endoscopy) to determine severity of GIB = 4 points = 24.6% risk of mortality pre-endoscoy Plan: admit to PCU/ ask RNs to place 2 large bore IVs & check orthostats / start PPI 40mg IV BID for 72 H, then switch to PO after 72 H (to decrease rate of re-bleeding) / because he has liver cirrhosis will start Octreotide for 2 to 5 days (to reduce splanchnic blood flow, inhibit gastric acid secretion and for gastric cytoprotective effects) and IV Rocephin / I left a message with the GI baton twirler service for and will ask the day time team to reach out to him again in the morning, in the meanwhile we will keep the pt NPO with IVF 2 Pancytopenia -It is currently unclear why he has leukopenia -Anemia is likely multifactorial (ie ESRD, GI bleed ect) -Chronic Thrombocytopenia 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 Plan: will add on type & screen, iron studies & soluble transferrin receptor (sTfR) which is a more sensitive indicator for iron deficiency (will be high if the patient really has iron deficiency) to admission labs / f/u Hg Q6H and keep Hg >8 bc pt has severe CAD / keep Plts > 50 / hold iron pending endoscopy 3 Liver Cirrhosis w portal HTN He has a history of decompensated hepatic encephalopathy & grade 2 esophageal varices In May his Child-Nicole Score was 5 = Class A & his MELD (New) Score was 2 3 Today his Child-Nicole Score is 7 = Class B & his MELD (New) Score is 22 Plan: c/w propranolol / f/u w GI or PCP as scheduled / bc the patient has a history of UGIB and cirrhosis he should likely be on lifelong SBP prophylaxis with Norfloxacin or Septra DS or Ciprofloxacin to prevent SBP, the day time team can discuss this with GI tomorrow 4 CAD/CABG w recent ZHAO Plan: c/w ASA, atorvastatin and ezetimibe / per d/w this evening it is ok to continue to hold Plavix in tonight in order for for the patient to proceed with endoscopy / he will see the patient in the morning & provide recs on resuming Plavix 5 Chronic HFpEF/Grade 1 DD Euvolemic Plan: monitor Is and Os / control BP 6 NIDDM A1C 7.0% in Aug Plan: f/u accuchecks Q6H while NPO / hypoglycemia protocol / sliding scale insulin / hold oral anti-glycemics / c/w gabapentin possibly for neuropathy 7 ESRD via RUE AV fistula on He had a RUE fistulogram on Oct 05 Plan: f/u Is and Os & daily weights / f/u w / Trudi Jain Class 2 Obesity BMI of 38.1 and co-existing DM & NIKHIL complicates care Plan: can f/u w his or her PCP a referral to a Bariatric Surgeon / recommend cardiovascular exercise for 40 min 4-5 days a week DVT PROPHYLAXIS: SCDs DISPOSITION: home after more than 2 midnight's stay Home Medications Scheduled Aspirin (Aspirin) 81 Mg Tab.chew, 81 MG PO DAILY Atorvastatin Calcium (Atorvastatin Calcium) 40 Mg Tablet, 40 MG PO QHS Ergocalciferol (Vitamin D2) (Vitamin D2) 50,000 Units Cap, 50,000 UNITS PO 1XWK SUNDAY Ezetimibe (Ezetimibe) 10 Mg Tablet, 10 MG PO DAILY Ferrous Sulfate (Ferrous Sulfate) 325 Mg Tablet, 325 MG PO BID Gabapentin (Gabapentin) 100 Mg Capsule, 100 MG PO BID Glipizide (Glipizide ER) 5 Mg Tab.er.24, 5 MG PO BID 0800, 1700 Midodrine HCl (Midodrine HCl) 10 Mg Tablet, 10 MG PO TID 0800, 1200, 1600 Pantoprazole Sodium (Pantoprazole Sodium) 40 Mg Tablet.dr, 40 MG PO DAILY Propranolol HCl (Propranolol HCl) 10 Mg Tab, 5 MG PO BID Sevelamer Carbonate (Sevelamer Carbonate) 800 Mg Tablet, 800 MG PO WM Vit B Comp No.3/Folic/C/Biotin (Nephro-Liza Rx Tablet) 1 Each Tablet, 1 TAB PO DAILY Scheduled PRN Sildenafil Citrate (Viagra) 50 Mg Tablet, 50 MG PO ASDIRECTED PRN for ERECTILE DYSFUNCTION Allergies Coded Allergies: No Known Allergies (Unverified , 06/14/20) A-FIB/CHADSVASC A-FIB History Current/History of A-Fib/PAF?: No Current PO Anticoag Therapy: No TOY QUAN MD Oct 14, 2020 23:45
[2020-10-15] MEDS ORDERED: FERR1TAB8 PO (00:04)
[2020-10-15] MEDS ORDERED: MIDO10TA PO (00:04)
[2020-10-15] MEDS ORDERED: CLOP75TA2 PO (00:04)
[2020-10-15] MEDS ORDERED: OCTREOTIDE ACETATE 100MCG/ML VIAL (J2354 PER 25MCG) IV ONE (00:30)
[2020-10-15 01:15] VITALS: BP 143/69
[2020-10-15] MEDS ORDERED: PILL CUTTER 1 EACH XX PRN (01:40)
[2020-10-15] MEDS: ATORVASTATIN 20 MG TAB PO SCH ×2 (02:14→23:24)
[2020-10-15] MEDS: NS 1,000 ML IV SCH ×2 (02:14→23:24)
[2020-10-15] MEDS: cefTRIAXone SOD 1 GM in D5W MINI-BAG PLUS 50 ML IV SCH (02:14)
[2020-10-15] MEDS: PANTOPRAZOLE 40MG VIAL (C9113 PER 1) IV SCH ×3 (02:14→23:25)
[2020-10-15] MEDS: PROPRANOLOL 10 MG TAB PO SCH ×3 (02:15→23:25)
[2020-10-15] MEDS: OCTREOTIDE ACETATE 1,200 MCG in NS 238.8 ML IV SCH ×2 (02:16→23:33)
[2020-10-15] MEDS: GABAPENTIN 100 MG CAP PO SCH ×3 (02:18→23:25)
[2020-10-15 04:00] VITALS: BP 118/60
[2020-10-15 05:35] LABS: HEMATOCRIT 36.1 % (42.0-52.0); HEMOGLOBIN 11.4 g/dl (13.5-17.5); MEAN CORPUSCULAR HEMOGLOBIN 27.6 pg (27.0-33.0); MEAN CORPUSCULAR HGB CONC 31.6 g/dl (32.0-36.5); MEAN CORPUSCULAR VOLUME 87.4 fl (80.0-96.0); RED BLOOD COUNT 4.13 10^6/uL (4.30-6.10); WHITE BLOOD COUNT 3.3 10^3/uL (4.0-10.0)
[2020-10-15 05:36] LABS: PLATELET COUNT, AUTOMATED 76 10^3/uL (150-450)
[2020-10-15 05:50] LABS: HEMOGLOBIN A1c 6.5 %
[2020-10-15] MEDS: HumaLOG INSULIN (NovoLOG) PER UNIT SC SCH ×4 (06:00→17:01)
[2020-10-15 06:06] LABS: CALCIUM LEVEL 8.2 MG/DL (8.8-10.2); CREATININE FOR GFR 8.18 MG/DL (0.70-1.30); GLOMERULAR FILTRATION RATE 6.9 (>42); POTASSIUM SERUM 5.8 MEQ/L (3.5-5.1)
[2020-10-15] MEDS: MIDODRINE 5 MG TAB PO SCH ×3 (07:45→16:53)
[2020-10-15] MEDS: ASPIRIN 81 MG CHEW TABLET PO SCH (07:46)
[2020-10-15] MEDS: (RENVELA) SEVELAMER **CARBONate** 800 MG TAB PO SCH ×3 (07:46→17:01)
[2020-10-15 07:55] VITALS: BP 125/61
[2020-10-15] MEDS: NEPHRO-VIT TAB (NEPHROCAPS) PO SCH (09:00)
[2020-10-15] MEDS: EZETIMIBE 10 MG TAB (ZETIA) PO SCH (09:00)
[2020-10-15] MEDS ORDERED: LIDOCAINE 1% SDV 5ML VIAL SC PRN (09:05)
--- NOTE | 2020-10-15 10:40 | CR.PDOC ---
General Date of Consultation: Oct 15, 2020 Referring Provider: TOY QUAN MD Attending Physician: MARCUS SILVA MD Consultation Referring physician/ hospitalist: Dr. Quan Reason for consult: GI bleed HPI: 70 year old male with PMHx including decompensated liver cirrhosis with hepatic encephalopathy, esophageal varices, and rectal varices, MELD-Na score 23, CTP Class A, multiple duodenal polyps, gastric mass, CAD s/p CABG in 2005 and PCI with two drug-eluting stents placed 07/2020, aortic stenosis, diastolic CHF, ESRD on HD, diabetes mellitus, CVA, NIKHIL, osteomyelitis, and left thigh abscess with subsequent bacteremia, who was sent to the ED by a PA at his cardiology office due to Hg below baseline and hx of black, tarry stools concerning for GI bleed. Patient states he has had the dark tarry stool for months now. He states this occurs daily. He notes about 3 bowel movements per day. He states he has diarrhea with loose, watery stool once a week. He denies any abdominal pain. Patient did have two coronary ZHAO placed in July 2020 and at that time was started on both aspirin and plavix. The patient states he was having black, tarry stool prior to this and denies any changes in his stool after this point. Patient states his Plavix was discontinued not long after the procedure, but he cannot recall why or by which doctor. He has continued on the aspirin. Based on chart review, it seems the Plavix was discontinued during hospitalization 08/2020 due to acute blood loss anemia. Additionally, the patient was referred to have an upper endoscopic ultrasound (UEUS) in [place] in 2018, but he has not had this procedure at this time. Pertinent negative GI symptoms: Patient denies nausea, vomiting, abdominal pain, loss of appetite, early satiety, unintentional weight loss, hematemesis, or hematochezia. Review of Systems: GI: as stated above CVS: No chest pain. No palpitations. No change in chronic leg swelling. RS: No shortness of breath. No Wheezing. No cough. MANDOLIN REPAIR PERSON: No loss of consciousness. No focal motor or sensory loss. Hematology: No easy bruising. No gum bleeding. Musculoskeletal: No joint pain, ambulating well. : No hematuria. No burning sensation of the urine. ENT: No ear discharge/pain. No dysphagia. Eyes: No photophobia. Skin: No rash Home medications: reviewed. No anticoagulants. No antiplatelets. Medical h/o: As above. Surgical h/o: Hx of appendectomy Social h/o: Endorses occasional alcohol use and cannabis use. Denies tobacco use. Denies other illicit substances/IVDA. Family h/o of GI cancers - None Prior Endoscopies: None Prior GI evaluations: Follows outpatient with Dr. Silva EGD by Dr. Silva 06/07 showing Grade II non-bleeding esophageal varices, gastric tumor, and three duodenal polyps resected. Colonoscopy by Dr. Silva 11/04 showing multiple polyps resected, diverticulosis, non-bleeding external and internal hemorrhoids, and rectal varices Exam: Vitals: reviewed General: Alert and oriented x 3, not in acute distress HEENT: No pallor, no icterus. Normal oropharynx, No cervical lymphadenopathy. Chest: symmetric with bilateral air entry, clear to auscultation. CVS: S1 and S2 heard, normal, no murmurs. Abdomen: distended, soft, non-tender, no rigidity or guarding, no palpable masses, normal bowel sounds auscultated. Rectal exam: Deferred at this time. Extremities: Pulses palpable, no pedal edema. MANDOLIN REPAIR PERSON: No focal motor or sensory deficits. Moves all extremities Skin: No rash. Labs: reviewed. Imaging: reviewed. Impression: -- Black tarry stool for multiple months with intermittent diarrhea in patient on aspirin concerning for upper GI bleed with stable H/H and history of nonbleeding esophageal varices, duodenal polyps, and duodenal ulcer-- Ddx bleeding from esophageal varices vs duodenal polyp vs duodenal ulcer vs new etiology such as gastric varices vs AVM vs gastric ulcer Recommendations: -- NPO for now pending procedure -- Continue with IV PPI BID and IV octreotide drip -- Scheduled for EGD later today. Patient is educated about the procedure, indication, risks, benefits and alternatives. All questions answered. -- Continue to hold Plavix and Aspirin prior to the procedure. Considering his high cardiac risk, restarting these medications should be considered by primary team after EGD. -- Follow up operative note for post procedure recommendations. Plan of care discussed with patient and primary team. Patient verbalized understanding and agreed with the plan. Vital Signs/I&O Vital Signs Date Time Temp Pulse Resp B/P (MAP) Pulse Ox O2 Delivery O2 Flow Rate FiO2 10/15/20 07:55 98.1 77 16 125/61 (82) 97 Room Air I&O- Last 24 Hours up to 6 AM 10/15/20 06:00 Intake Total 0 ml Output Total 0 ml Balance 0 ml Laboratory Data Labs 24H Laboratory Tests 2 10/14/20 19:16: Immature Granulocyte % (Auto) 0.3, Neutrophils (%) (Auto) 53.8, Lymphocytes (%) (Auto) 27.7, Monocytes (%) (Auto) 13.5H, Eosinophils (%) (Auto) 3.9H, Basophils (%) (Auto) 0.8, Neutrophils # (Auto) 2.1, Lymphocytes # (Auto) 1.1L, Monocytes # (Auto) 0.5, Eosinophils # (Auto) 0.2, Basophils # (Auto) 0.0, Reticulocyte # (auto) 35.1, Nucleated Red Blood Cells % (auto) 0.0, Immature Platelet Fraction 3.3, Percent Reticulocyte Count 0.8, Reticulocyte Hemoglobin Equivalent 31.6, Prothrombin Time 14.3H, Prothromb Time International Ratio 1.09, Activated Partial Thromboplast Time 33.2, Anion Gap 9, Glomerular Filtration Rate 7.8L, Calcium Level 8.0L, Iron Level 89, Total Iron Binding Capacity 256, Transferrin % Saturation 34.8, Ferritin 434H, Total Bilirubin 0.6, Direct Bilirubin 0.2, Aspartate Amino Transf (AST/SGOT) 27, Alanine Aminotransferase (ALT/SGPT) 22, Alkaline Phosphatase 132H, Total Creatine Kinase 140, Creatine Kinase MB 3.3, Creatine Kinase MB Relative Index 2.36, Troponin I 0.02, Total Protein 7.9, Albumin 3.4, Albumin/Globulin Ratio 0.8, Lipase 399H 10/14/20 21:07: Coronavirus (COVID-19)(PCR) NEGATIVE, Influenza Type A (RT-PCR) NEGATIVE, Influenza Type B (RT-PCR) NEGATIVE, Respiratory Syncytial Virus (PCR) NEGATIVE 10/15/20 02:54: Bedside Glucose (Misc Panel) 81L 10/15/20 05:12: Nucleated Red Blood Cells % (auto) 0.0, Anion Gap 7L, Glomerular Filtration Rate 6.9L, Calcium Level 8.2L, Estimated Mean Plasma Glucose 140H, Hemoglobin A1c 6.5 CBC/BMP Laboratory Tests 10/14/20 19:16 10/15/20 00:14 10/15/20 05:12 Allergies Coded Allergies: No Known Allergies (Unverified , 06/14/20) Home Medications Scheduled Aspirin (Aspirin) 81 Mg Tab.chew, 81 MG PO DAILY, (Reported) Atorvastatin Calcium (Atorvastatin Calcium) 40 Mg Tablet, 40 MG PO QHS, (Reported) Ergocalciferol (Vitamin D2) (Vitamin D2) 50,000 Units Cap, 50,000 UNITS PO 1XWK, (Reported) SUNDAY Ezetimibe (Ezetimibe) 10 Mg Tablet, 10 MG PO DAILY, (Reported) Ferrous Sulfate (Ferrous Sulfate) 325 Mg Tablet, 325 MG PO BID, (Reported) Gabapentin (Gabapentin) 100 Mg Capsule, 100 MG PO BID, (Reported) Glipizide (Glipizide ER) 5 Mg Tab.er.24, 5 MG PO BID, (Reported) 0800, 1700 Midodrine HCl (Midodrine HCl) 10 Mg Tablet, 10 MG PO TID, (Reported) 0800, 1200, 1600 Pantoprazole Sodium (Pantoprazole Sodium) 40 Mg Tablet.dr, 40 MG PO DAILY, (Reported) Propranolol HCl (Propranolol HCl) 10 Mg Tab, 5 MG PO BID, (Reported) Sevelamer Carbonate (Sevelamer Carbonate) 800 Mg Tablet, 800 MG PO WM, (Reported) Vit B Comp No.3/Folic/C/Biotin (Nephro-Liza Rx Tablet) 1 Each Tablet, 1 TAB PO DAILY, (Reported) Scheduled PRN Sildenafil Citrate (Viagra) 50 Mg Tablet, 50 MG PO ASDIRECTED PRN for ERECTILE DYSFUNCTION, (Reported) LAURE FRANKLIN D.O. Oct 15, 2020 10:40
--- NOTE | 2020-10-15 11:22 | IPNPDOC ---
Subjective Date Seen The patient was seen on 10/15/20. Subjective Chief Complaint/HPI Mr. Tyson is a 70 year old male with liver cirrhosis, esophageal varices, and history of nonbleeding duodenal ulcer who is here with melena. He was seen this morning, just prior to going down to dialysis. Denies chest pain, dyspnea, or abdominal pain. HE reports having melena and had 3 bowel movements yesterday. I reached out to nephrology who will be taking him to dialysis today. I also reached out to GI, Dr. Villanueva. Planning for EGD today, possibly between 2 to 3 PM. Objective Physical Examination General Exam: Positive: Alert, Cooperative Eye Exam: Positive: EOMI; Negative: Sclera icteric ENT Exam: Positive: Atraumatic Neck Exam: Positive: Supple Chest Exam: Positive: Clear to auscultation Heart Exam: Positive: Rate Normal, Regular Rhythm Abdomen Exam: Positive: Normal bowel sounds, Other (Distended) Neuro Exam: Positive: Normal Speech Psych Exam: Positive: Mental status NL, Mood NL Assessment /Plan Assessment Mr. Tyson is a 70 year old male with liver cirrhosis, esophageal varices, and history of nonbleeding duodenal ulcer who is here with melena. He recently had two ZHAO placed in 07/2020 and was on DAPT therapy. In July, he was continued on DAPT, but in August, his med rec does not list Plavix. Per Dr. Fernando at [facility], he will need to be on DAPT for 1 year. Plan for EGD today. if negative, he would be able to restart Plavix. Plan/VTE VTE Prophylaxis Ordered?: Yes Plan 1. Melena (suspected UGIB) -History of gastric ulcers and esophageal varices -Continue IV Protonix 40mg BID for 72 hours -Reached out to Dr. Villanueva, plan for EGD this afternoon 2. Liver Cirrhosis -Grade 2 esophageal varices -Continue propranolol -On Octreotide and Midodrine -On SBP ppx with Ceftriaxone 3. CAD s/p CABG. Recent ZHAO placement -Will need to decide about Plavix after EGD -Continue atorvastatin, and ezetimibe -Aspirin held for EGD 4. ESRD on dialysis MWF -Nephrology following, recommendations appreciated -I&O and daily weights -Sevelamer 5. Diabetes mellitus -Sliding scale insulin -Gabapentin for neuropathy 6. Thrombocytopenia -Chronic 2/2 cirrhosis and portal hypertension -Monitor CBC 7. Class 2 Obesity -BMI 38.1 8. DVT ppx -TEDs Disposition: Pending EGD and Plavix recommendations VS, I&O, 24H, Edy Vital Signs/I&O Vital Signs Date Time Temp Pulse Resp B/P (MAP) Pulse Ox O2 Delivery O2 Flow Rate FiO2 10/15/20 07:55 98.1 77 16 125/61 (82) 97 Room Air I&O- Last 24 Hours up to 6 AM 10/15/20 06:00 Intake Total 0 ml Output Total 0 ml Balance 0 ml Laboratory Data 24H LABS Laboratory Tests 2 10/14/20 19:16: Immature Granulocyte % (Auto) 0.3, Neutrophils (%) (Auto) 53.8, Lymphocytes (%) (Auto) 27.7, Monocytes (%) (Auto) 13.5H, Eosinophils (%) (Auto) 3.9H, Basophils (%) (Auto) 0.8, Neutrophils # (Auto) 2.1, Lymphocytes # (Auto) 1.1L, Monocytes # (Auto) 0.5, Eosinophils # (Auto) 0.2, Basophils # (Auto) 0.0, Reticulocyte # (auto) 35.1, Nucleated Red Blood Cells % (auto) 0.0, Immature Platelet Fraction 3.3, Percent Reticulocyte Count 0.8, Reticulocyte Hemoglobin Equivalent 31.6, Prothrombin Time 14.3H, Prothromb Time International Ratio 1.09, Activated Partial Thromboplast Time 33.2, Anion Gap 9, Glomerular Filtration Rate 7.8L, Calcium Level 8.0L, Iron Level 89, Total Iron Binding Capacity 256, Transferrin % Saturation 34.8, Ferritin 434H, Total Bilirubin 0.6, Direct Bilirubin 0.2, Aspartate Amino Transf (AST/SGOT) 27, Alanine Aminotransferase (ALT/SGPT) 22, Alkaline Phosphatase 132H, Total Creatine Kinase 140, Creatine Kinase MB 3.3, Creatine Kinase MB Relative Index 2.36, Troponin I 0.02, Total Protein 7.9, Albumin 3.4, Albumin/Globulin Ratio 0.8, Lipase 399H 10/14/20 21:07: Coronavirus (COVID-19)(PCR) NEGATIVE, Influenza Type A (RT-PCR) NEGATIVE, Influenza Type B (RT-PCR) NEGATIVE, Respiratory Syncytial Virus (PCR) NEGATIVE 2/26/21 02:54: Bedside Glucose (Misc Panel) 81L 10/15/20 05:12: Nucleated Red Blood Cells % (auto) 0.0, Anion Gap 7L, Glomerular Filtration Rate 6.9L, Calcium Level 8.2L, Estimated Mean Plasma Glucose 140H, Hemoglobin A1c 6.5 CBC/BMP Laboratory Tests 10/14/20 19:16 10/15/20 00:14 10/15/20 05:12 JAMIE WALLACE DO Oct 15, 2020 11:22
[2020-10-15 13:30] VITALS: BP 147/67
--- NOTE | 2020-10-15 14:16 | CR ---
NEPHROLOGY CONSULTATION DATE: 10/15/2020 REQUESTING PHYSICIAN: Sacha Rojo D.O. CHIEF COMPLAINT: Patient presented to the hospital with melena and he was told by cardiology that his hemoglobin was low. HISTORY OF PRESENT ILLNESS: Kristopher Tyson is a 70-year-old male with a past medical history of end-stage renal disease on hemodialysis every Sunday, Sunday, Sunday, history of liver cirrhosis, coronary artery disease; status post CABG, multiple other comorbidities as mentioned below. He was seen by the cardiology office, where he complained of melena and he reports that his hemoglobin was lower than his baseline hemoglobin. The patient was advised to come to the Emergency Room. He was admitted under the hospitalist service. Nephrology service was called for further help in the management of end-stage renal disease, hemodialysis and hyperkalemia. Patient's potassium level was 5.8 today morning. I saw and evaluated the patient today morning at the bedside during hemodialysis. I had already arranged his hemodialysis to be done today. He was tolerating the hemodialysis procedure well. PAST MEDICAL HISTORY: End-stage renal disease on hemodialysis every Sunday, Sunday, Sunday, liver cirrhosis, history of hepatic encephalopathy and grade 2 esophageal varices, history of duodenal ulcers in the past, coronary artery disease; status post CABG in the past, history of aortic stenosis, chronic diastolic congestive heart failure with grade 1 diastolic dysfunction, diabetes mellitus type 2 non-insulin dependent, CVA with residual left-sided paresthesia, history of thigh abscesses and MRSA boils in the past, obesity, obstructive sleep apnea, history of right pleural effusion in the past. PAST SURGICAL HISTORY: Status post coronary artery bypass grafting in 2005, PCI with a drug-eluting stent in the posterior lateral branch of right coronary artery and mid circumflex in July of 2020, history of AV fistula placement, left cataract surgery, right-sided chest tube for pleural effusion in the past, appendectomy in the past, medial meniscectomy in the left, right third toe amputation for osteomyelitis. FAMILY HISTORY: No significant family history of end-stage renal disease in immediate family. His uncle had end-stage renal disease. SOCIAL HISTORY: Patient denies any smoking. He occasionally uses marijuana. He drinks alcohol socially and he is a . ALLERGIES: No known drug allergies. REVIEW OF SYSTEMS: Constitutional: He denies any fevers or chills. Eyes: He denies any blurry vision or double vision. ENT: He denies any dysphagia or odynophagia. Cardiovascular: He denies any chest pain or palpitations. Respiratory: He denies any shortness of breath. GI: He denies any nausea or vomiting. He does report melena. Genitourinary: He reports decreased urine output. Musculoskeletal: He denies any muscle aches and pain. Skin: He denies any rashes or ulcers. HEM/ONC: He reports melena, otherwise he denies any easy bleeding or bruising. OPHTHALMIC AIDE: He denies any weakness at this time. All other review of systems is negative. PHYSICAL EXAMINATION: GENERAL: He is awake, alert, oriented x3, lying in the bed getting hemodialysis done. VITAL SIGNS: Temperature 98.1 degrees Fahrenheit, blood pressure 125/61, pulse 77, respiratory rate 16, saturating 97% on room air. HEAD AND NECK: Extraocular muscles intact. Pupils equally round and reactive to light. Mucous membranes are moist. Neck is supple. There is no JVD. CARDIOVASCULAR: S1, S2, grade 3/6 systolic murmur was noted in the aortic area. Trace edema of the bilateral lower extremities. RESPIRATORY: Chest is clear to auscultation bilaterally. Bilateral equal air entry. No rales or rhonchi. ABDOMEN: Soft, obese, positive bowel sounds, nontender, no organomegaly. MUSCULOSKELETAL: No clubbing or cyanosis. Pulses are 2+. OPHTHALMIC AIDE: No focal deficit. Power is 5/5 in all extremities. LABORATORY REVIEW: CBC showed WBC 3.3, hemoglobin 11.4, platelets 76,000. BMP showed sodium 136, potassium 5.8, chloride 102, bicarb 27, BUN 28, creatinine 8.1. Iron 89, transferrin saturation is pending, ferritin 434. IMAGING: A chest x-ray was done yesterday, which showed no active disease. CURRENT INPATIENT MEDICATIONS: Patient's medications were all reviewed by myself. He is on Octreotide infusion. He is getting normal saline at 50 cc an hour because he is n.p.o. Patient is on Rocephin 1 gram I.V. every 24 hours, Mylanta p.r.n., aspirin 81 mg p.o. daily, Atorvastatin 40 mg q.h.s., Zetia 10 mg p.o. daily, Gabapentin 100 mg p.o. twice a day, Midodrine 10 mg p.o. three times a day, Protonix 40 mg I.V. every 12 hours, Propranolol 5 mg p.o. twice a day, Renvela 800 mg p.o. with meals. ASSESSMENT AND PLAN: 1. End-stage renal disease: Patient is being dialyzed at this time. Ultrafiltration goal is 1.5 liters. 2. Hyperkalemia: It is secondary to renal failure. Patient is being dialyzed with 2K baths. Potassium level should improve with that. 3. Pancytopenia: It is most likely associated with liver cirrhosis and hypersplenism. Hemoglobin level is stable at this time. 4. Melena: Patient is n.p.o. for EGD because he has liver cirrhosis. 5. Chronic kidney disease/mineral bone disease: Continue current dose of Renvela 800 mg p.o. with meals. 6. Chronic hypotension: Continue current dose of Midodrine, blood pressure is acceptable.
[2020-10-15] MEDS ORDERED: LIDOCAINE 2% 100MG/5ML SDV (FOR ANES.) As Ordered ONE (14:43)
[2020-10-15] MEDS ORDERED: propofoL 200 MG/20 ML VIAL As Ordered ONE ×2 (14:43→15:12)
[2020-10-15] MEDS ORDERED: fentaNYL 100 MCG/2 ML INJECTION (J3010) As Ordered ONE (14:44)
--- NOTE | 2020-10-15 15:53 | ROOR ---
Patient Name: Kristopher Tyson Procedure Date: 10/15/2020 2:48 PM Date of : 1950 Age: 70 Room: [facility] Gender: Male Note Status: Finalized Procedure: Upper GI endoscopy Indications: Melena Providers: Timur Villanueva MD Referring MD: 2. Inpatient 2. Inpatient Requesting Provider: Medicines: Monitored Anesthesia Care Complications: No immediate complications. Procedure: Pre-Anesthesia Assessment: - Prior to the procedure, a History and Physical was performed, and patient medications and allergies were reviewed. The patient is competent. The risks and benefits of the procedure and the sedation options and risks were discussed with the patient. All questions were answered and informed consent was obtained. Patient identification and proposed procedure were verified by the physician, the nurse and the anesthesiologist in the procedure room. Mental Status Examination: alert and oriented. Airway Examination: normal oropharyngeal airway and neck mobility. Respiratory Examination: clear to auscultation. CV Examination: normal. Prophylactic Antibiotics: The patient does not require prophylactic antibiotics. Prior Anticoagulants: The patient has taken no previous anticoagulant or antiplatelet agents. ASA Grade Assessment: II - A patient with mild systemic disease. After reviewing the risks and benefits, the patient was deemed in satisfactory condition to undergo the procedure. The anesthesia plan was to use monitored anesthesia care (MAC). Immediately prior to administration of medications, the patient was re-assessed for adequacy to receive sedatives. The heart rate, respiratory rate, oxygen saturations, blood pressure, adequacy of pulmonary ventilation, and response to care were monitored throughout the procedure. The physical status of the patient was re-assessed after the procedure. The Endoscope was introduced through the mouth, and advanced to the second part of duodenum. The upper GI endoscopy was accomplished without difficulty. The patient tolerated the procedure well. Findings: Four columns of non-bleeding grade III varices were found in the upper third of the esophagus, in the middle third of the esophagus and in the lower third of the esophagus,. No stigmata of recent bleeding were evident and no red tracey signs were present. Type 2 gastroesophageal varices (GOV2, esophageal varices which extend along the fundus) with no bleeding were found in the gastric fundus. There were no stigmata of recent bleeding. They were medium in largest diameter. A few 35 mm semi-sessile polyps with bleeding and stigmata of recent bleeding were found at the pylorus. Three ligatures were successfully placed. There was no bleeding at the end of the procedure. Severe portal hypertensive gastropathy was found in the gastric body and in the gastric antrum. A few 5 to 8 mm mucosal nodules with a patchy distribution were found in the second portion of the duodenum. Impression: - Non-bleeding grade III esophageal varices. - Type 2 gastroesophageal varices (GOV2, esophageal varices which extend along the fundus), without bleeding. - A few gastric polyps. Ligated. - Portal hypertensive gastropathy. - Mucosal nodule found in the duodenum. - No specimens collected. Recommendation: - Patient has a contact number available for emergencies. The signs and symptoms of potential delayed complications were discussed with the patient. Return to normal activities tomorrow. Written discharge instructions were provided to the patient. - Clear liquid diet for 1 day, then advance as tolerated to low sodium diet. - Use Protonix (pantoprazole) 40 mg PO twice daily - to be taken in morning (1/2 hour before breakfast) and at bedtime ( atleast 3 hours after last meal) for 8 weeks. - Resume Plavix (clopidogrel) and Aspirin today based on the risks and benefits at prior doses. Refer to primary physician for further adjustment of therapy. - Repeat upper endoscopy in 1 month for retreatment. - Refer to a client executive ([facility]) for EUS and therapy for varices and polypoid mass. - Return to primary care physician. Procedure Code(s): --- Professional --- 67498, Esophagogastroduodenoscopy, flexible, transoral; diagnostic, including collection of specimen(s) by brushing or washing, when performed (separate procedure) Diagnosis Code(s): --- Professional --- I85.00, Esophageal varices without bleeding I86.4, Gastric varices K31.7, Polyp of stomach and duodenum K76.6, Portal hypertension K31.89, Other diseases of stomach and duodenum K92.1, Melena (includes Hematochezia) CPT copyright 2019 [employer]. All rights reserved. The codes documented in this report are preliminary and upon energy crop farmer review may be revised to meet current compliance requirements. Timur Villanueva MD Timur Villanueva MD 10/15/2020 3:52:44 PM Electronically signed by Timur Villanueva MD Number of Addenda: 0 Note Initiated On: 10/15/2020 2:48 PM Estimated Blood Loss: Estimated blood loss was minimal.
[2020-10-15 16:00] VITALS: BP 140/64
[2020-10-15] MEDS ORDERED: ONDANSETRON 4MG/2ML VIAL IV PRN (16:30)
[2020-10-15] MEDS ORDERED: LR 1,000 ML IV SCH (16:30)
[2020-10-15 20:00] VITALS: BP 129/62
[2020-10-16] VITALS: BP 126/58
[2020-10-16] MEDS: cefTRIAXone SOD 1 GM in D5W MINI-BAG PLUS 50 ML IV SCH (03:14)
[2020-10-16 04:00] VITALS: BP 99/54
[2020-10-16 05:26] LABS: HEMOGLOBIN 10.8 g/dl (13.5-17.5); MEAN CORPUSCULAR HEMOGLOBIN 26.7 pg (27.0-33.0); MEAN CORPUSCULAR VOLUME 88.9 fl (80.0-96.0); RED BLOOD COUNT 4.05 10^6/uL (4.30-6.10); WHITE BLOOD COUNT 2.9 10^3/uL (4.0-10.0)
[2020-10-16 05:27] LABS: PLATELET COUNT, AUTOMATED 69 10^3/uL (150-450)
[2020-10-16 05:50] LABS: CREATININE FOR GFR 6.34 MG/DL (0.70-1.30); GLOMERULAR FILTRATION RATE 9.3 (>42); POTASSIUM SERUM 4.6 MEQ/L (3.5-5.1)
[2020-10-16] MEDS: HumaLOG INSULIN (NovoLOG) PER UNIT SC SCH ×4 (06:00→17:48)
[2020-10-16 08:00] VITALS: BP 131/68
[2020-10-16] MEDS: (RENVELA) SEVELAMER **CARBONate** 800 MG TAB PO SCH ×3 (08:00→17:47)
[2020-10-16] MEDS: CLOPIDOGREL 75 MG TAB PO SCH (09:39)
[2020-10-16] MEDS: ASPIRIN 81 MG CHEW TABLET PO SCH (09:39)
[2020-10-16] MEDS: EZETIMIBE 10 MG TAB (ZETIA) PO SCH (09:39)
[2020-10-16] MEDS: GABAPENTIN 100 MG CAP PO SCH ×2 (09:39→20:19)
[2020-10-16] MEDS: NEPHRO-VIT TAB (NEPHROCAPS) PO SCH (09:39)
[2020-10-16] MEDS: MIDODRINE 5 MG TAB PO SCH ×3 (09:40→16:17)
[2020-10-16] MEDS: PROPRANOLOL 10 MG TAB PO SCH ×2 (09:41→20:20)
[2020-10-16] MEDS: PANTOPRAZOLE 40MG VIAL (C9113 PER 1) IV SCH ×2 (09:41→20:19)
--- NOTE | 2020-10-16 10:02 | IPNPDOC ---
Subjective Date Seen The patient was seen on 10/16/20. Subjective Chief Complaint/HPI Mr. Tyson is a 70 year old male with liver cirrhosis, esophageal varices, and history of nonbleeding duodenal ulcer who is here with melena. History patient went for an EGD. He was found to have semi-sessile polyps with bleeding and he treated them with 3 ligatures. GI cleared patient for Plavix. I reached out to cardiology who recommended that he be on dual antiplatelet therapy for at least 3 months after his stent. Otherwise when I saw him in the morning, he denies any chest pain or dyspnea. He has not had a bowel movement. Objective Physical Examination General Exam: Positive: Alert, Cooperative Eye Exam: Positive: EOMI; Negative: Sclera icteric ENT Exam: Positive: Atraumatic Neck Exam: Positive: Supple Chest Exam: Positive: Clear to auscultation Heart Exam: Positive: Rate Normal, Regular Rhythm Abdomen Exam: Positive: Normal bowel sounds, Other (Distended) Extremity Exam: Positive: Edema (bilateral pitting) Neuro Exam: Positive: Normal Speech Psych Exam: Positive: Mental status NL, Mood NL Assessment /Plan Assessment Mr. Tyson is a 70 year old male with liver cirrhosis, esophageal varices, and history of nonbleeding duodenal ulcer who is here with melena. He recently had two ZHAO placed in 07/2020 and was on DAPT therapy. In July, he was continued on DAPT, but in August, his med rec does not list Plavix. Per Dr. Fernando at [facility], he will need to be on DAPT for 1 year. Spoke with cardiology, Dr. Blevins, and he would need to be on dual antiplatelet therapy for at least 3 months. Patient had EGD on 10/15/2020. There were semi-sessile polyps with bleeding of which she treated. He cleared patient to be back on Plavix. We'll monitor his H&H and stools for today Plan/VTE VTE Prophylaxis Ordered?: Yes Plan 1. Acute upper GI bleed Manifested as melena EGD demonstrated semi-sessile polyps with bleeding -Continue IV Protonix 40mg BID for a total of 72 hours Can switch to PO Protonix tomorrow 2. Liver Cirrhosis -Grade 2 esophageal varices -Continue propranolol -On Octreotide and Midodrine -On SBP ppx with Ceftriaxone 3. CAD s/p CABG. Recent ZHAO placement -Cleared by GI for Plavix -Continue atorvastatin, ezetimibe, and aspirin 4. ESRD on dialysis MWF -Nephrology following, recommendations appreciated -I&O and daily weights -Sevelamer 5. Diabetes mellitus -Sliding scale insulin -Gabapentin for neuropathy 6. Thrombocytopenia -Chronic 2/2 cirrhosis and portal hypertension -Monitor CBC 7. Class 2 Obesity -BMI 38.1 8. DVT ppx -TEDs Disposition: Pending clinical improvement VS, I&O, 24H, Fishbone Vital Signs/I&O Vital Signs Date Time Temp Pulse Resp B/P (MAP) Pulse Ox O2 Delivery O2 Flow Rate FiO2 10/16/20 04:00 98.0 73 16 99/54 (69) 94 Room Air I&O- Last 24 Hours up to 6 AM 10/16/20 06:00 Intake Total 300 ml Output Total 1500 ml Balance -1200 ml Laboratory Data 24H LABS Laboratory Tests 2 10/15/20 13:41: Bedside Glucose (Misc Panel) 68L 10/15/20 16:55: Bedside Glucose (Misc Panel) 68L 10/15/20 23:21: Bedside Glucose (Misc Panel) 81L 10/16/20 04:53: Nucleated Red Blood Cells % (auto) 0.0, Immature Platelet Fraction 4.0, Anion Gap 9, Glomerular Filtration Rate 9.3L, Calcium Level 8.0L CBC/BMP Laboratory Tests 10/15/20 12:26 10/16/20 04:53 JAMIE WALLACE DO Oct 16, 2020 10:02
[2020-10-16 12:00] VITALS: BP 147/79
--- NOTE | 2020-10-16 15:12 | IPN ---
PROGRESS NOTE DATE: 10/16/2020 SUBJECTIVE: Kristopher is seen and examined this morning at the bedside. He offers no complaints. He had his endoscopy yesterday, which showed portal hypertensive gastropathy with nonbleeding esophageal varies and a few gastric polyps, and he was resumed on Plavix. He was dialyzed yesterday with 1500 mL removed, and his dialysis treatment was uneventful. He denies any shortness of breath or chest pain. Temperature 98.4, pulse 75, respiratory rate 18, blood pressure 131/68, saturating 98% on room air. Intake yesterday was not fully recorded. Dialysis removed 1500. Weight in the bed scale today is 112 kg. GENERAL: Patient is seen lying in bed, awake, alert, oriented in no distress. Extraocular muscles are intact. Tongue is moist. Neck is supple. Jugular veins are not elevated. HEART: Sounds are regular, S1, S2. There is a systolic murmur. There is trace edema of the bilateral lower extremities. LUNGS: Clear to auscultation bilaterally. No crackle, rales, or rhonchus. ABDOMEN: Soft, obese, and nontender. EXTREMITIES: Show no clubbing or cyanosis. NEUROLOGIC: No focal deficit. He is oriented times three. SKIN: Normal temperature and turgor. Today's labs show white count 2.9, hemoglobin 10.8, platelets 69. S odium 135, potassium 4.6. INPATIENT MEDICATIONS: Reviewed by myself. He is still nothing by mouth and on normal saline at 50 mL an hour. His Plavix was resumed at 75 mg by mouth daily. His remainder of medications is unchanged as compared to yesterday. PROBLEMS: 1. End-stage renal disease on hemodialysis on a Sunday, Sunday, Sunday schedule. He was dialyzed on Sunday with 1.5 liters of fluid removed. He tolerated his treatment without any issues. His electrolytes and volume status are acceptable. Continue current dialysis prescription. He can continue on IV fluids for as long as he is nothing by mouth at a low rate. 2. Acute upper gastrointestinal (GI) bleed, status post endoscopy yesterday with esophageal varices and gastric polyps. He is on IV Protonix. He is still nothing by mouth. Defer to GI/ hospitalist for when diet can be resumed. Please stop IV fluids when patient is back on a diet. 3. Coronary artery disease, status post coronary artery bypass graft (CABG). Patient is on aspirin, statin, Zetia, and is back on Plavix after having his endoscopy. 4. Hyperkalemia. It resolved after his dialysis treatment yesterday. 5. Anemia of chronic renal failure. Hemoglobin is presently at goal, and we will resume Aranesp when indicated.
[2020-10-16 15:22] LABS: HEMATOCRIT 35.6 % (42.0-52.0); HEMOGLOBIN 10.9 g/dl (13.5-17.5); MEAN CORPUSCULAR HEMOGLOBIN 26.9 pg (27.0-33.0); MEAN CORPUSCULAR HGB CONC 30.6 g/dl (32.0-36.5); MEAN CORPUSCULAR VOLUME 87.9 fl (80.0-96.0); RED BLOOD COUNT 4.05 10^6/uL (4.30-6.10); WHITE BLOOD COUNT 3.2 10^3/uL (4.0-10.0)
[2020-10-16 15:27] LABS: PLATELET COUNT, AUTOMATED 69 10^3/uL (150-450)
[2020-10-16 16:00] VITALS: BP 149/73
[2020-10-16 20:00] VITALS: BP 160/76
[2020-10-16] MEDS: ATORVASTATIN 20 MG TAB PO SCH (20:19)
[2020-10-17] VITALS: BP 112/72
[2020-10-17] MEDS: OCTREOTIDE ACETATE 1,200 MCG in NS 238.8 ML IV SCH (00:25)
[2020-10-17] MEDS: cefTRIAXone SOD 1 GM in D5W MINI-BAG PLUS 50 ML IV SCH (02:22)
[2020-10-17 04:00] VITALS: BP 117/55
[2020-10-17 05:48] LABS: HEMATOCRIT 34.2 % (42.0-52.0); HEMOGLOBIN 10.3 g/dl (13.5-17.5); MEAN CORPUSCULAR HEMOGLOBIN 26.3 pg (27.0-33.0); MEAN CORPUSCULAR HGB CONC 30.1 g/dl (32.0-36.5); MEAN CORPUSCULAR VOLUME 87.5 fl (80.0-96.0); RED BLOOD COUNT 3.91 10^6/uL (4.30-6.10); WHITE BLOOD COUNT 2.6 10^3/uL (4.0-10.0)
[2020-10-17 05:51] LABS: PLATELET COUNT, AUTOMATED 68 10^3/uL (150-450)
[2020-10-17 06:10] LABS: CALCIUM LEVEL 7.1 MG/DL (8.8-10.2); CREATININE FOR GFR 8.67 MG/DL (0.70-1.30); GLOMERULAR FILTRATION RATE 6.5 (>42); POTASSIUM SERUM 4.8 MEQ/L (3.5-5.1)
[2020-10-17 08:00] VITALS: BP 107/54
[2020-10-17] MEDS ORDERED: DOCUSATE SODIUM 100MG CAPSULE PO SCH (09:00)
[2020-10-17] MEDS: HumaLOG INSULIN (NovoLOG) PER UNIT SC SCH ×2 (09:09→12:44)
[2020-10-17] MEDS: PANTOPRAZOLE 40MG VIAL (C9113 PER 1) IV SCH (09:09)
[2020-10-17] MEDS: NEPHRO-VIT TAB (NEPHROCAPS) PO SCH (09:10)
[2020-10-17] MEDS: EZETIMIBE 10 MG TAB (ZETIA) PO SCH (09:11)
[2020-10-17] MEDS: ASPIRIN 81 MG CHEW TABLET PO SCH (09:11)
[2020-10-17] MEDS: (RENVELA) SEVELAMER **CARBONate** 800 MG TAB PO SCH ×2 (09:11→12:44)
[2020-10-17] MEDS: CLOPIDOGREL 75 MG TAB PO SCH (09:11)
[2020-10-17] MEDS: GABAPENTIN 100 MG CAP PO SCH (09:11)
[2020-10-17 09:12] VITALS: BP 107/54
[2020-10-17] MEDS: PROPRANOLOL 10 MG TAB PO SCH (09:12)
[2020-10-17] MEDS: MIDODRINE 5 MG TAB PO SCH ×3 (09:12→15:27)
[2020-10-17 12:00] VITALS: BP 148/67
[2020-10-17 12:53] LABS: HEMOGLOBIN 11.5 g/dl (13.5-17.5); MEAN CORPUSCULAR HEMOGLOBIN 27.1 pg (27.0-33.0); MEAN CORPUSCULAR HGB CONC 31.1 g/dl (32.0-36.5); MEAN CORPUSCULAR VOLUME 87.3 fl (80.0-96.0); RED BLOOD COUNT 4.24 10^6/uL (4.30-6.10); WHITE BLOOD COUNT 3.9 10^3/uL (4.0-10.0)
[2020-10-17 12:54] LABS: PLATELET COUNT, AUTOMATED 73 10^3/uL (150-450)
[2020-10-17] MEDS ORDERED: DOK1CAP7 PO (13:18)
[2020-10-17] MEDS ORDERED: PANT40TA29 PO ×2 (13:18→13:26)
[2020-10-17] MEDS ORDERED: CLOP75TA2 PO (13:18)
--- NOTE | 2020-10-17 19:03 | DS.PDOC ---
Discharge Summary General Date of Admission Oct 14, 2020 at 22:36 Date of Discharge Oct 17, 2020 Specialist/Consultants [facility] GI, Dr. Villanueva Nephrology, Dr. Gonzalez and Dr. Yakov Mayorga Discharge Summary PROCEDURES PERFORMED DURING STAY: EGD on 10/15/2020 ADMITTING DIAGNOSES: 1. Melena, suspecting upper GI bleed 2. Pancytopenia 3. Liver cirrhosis 4. CAD status post CABG with recent ZHAO 5. Heart failure with preserved ejection fraction (stable) 6. Osq-bwipdiw-bdcnjnigv diabetes mellitus 7. End-stage renal disease on dialysis MWF 8. Class II obesity DISCHARGE DIAGNOSES: 1. Acute blood loss from upper GI bleed 2. Thrombocytopenia 3. Liver cirrhosis 4. CAD status post CABG with recent ZHAO 5. Heart failure with preserved ejection fraction (stable) 6. Gcf-pzxcdwx-ncbpeikab diabetes mellitus 7. End-stage renal disease on dialysis MWF 8. Class II obesity COMPLICATIONS/CHIEF COMPLAINT: Melena. HISTORY OF PRESENT ILLNESS: Mr. Tyson is a 70-year-old male with cirrhosis with portal hypertension and end-stage renal disease on dialysis who was sent to the ED from cardiology office for evaluation of melena. Patient reported to PA that he's been having dark tarry stools since of last year. The PA called dialysis Center who reported a hemoglobin of 8.6. Patient was sent to the ED for evaluation. The PA also contacted Dr. Villanueva who plans to endoscopic procedure tomorrow. Otherwise patient recently had 2 drug-eluting stents placed on August [address] Fernando at [facility]. He was to continue dual antiplatelet therapy for 1 year. Based on the discharge summary from 08/29/2020, Plavix was discontinued because of hemoptysis and acute blood loss anemia. HOSPITAL COURSE: During patient's hospitalization, Dr. Villanueva performed EGD which demonstrated a few semi-sessile polyps with bleeding. 3 ligatures were placed. Otherwise there are nonbleeding grade 3 esophageal varices. GI recommended that patient continue IV Protonix for 72 hours then switch to PO Protonix twice a day for 8 weeks. Cleared patient to be on Plavix and aspirin. They also recommended that patient be referred to a design draftsman at an [facility] for EUS and therapy for varices and polypoid mass. Patient's diet was advanced to a renal diet. I reached out to cardiology, Dr. kennedy. Patient will need to continue aspirin and Plavix. Patient will need a return to his aluminum molder about when to stop Plavix to have his varices treated. Today patient felt well. He had a bowel movement that was still dark but design engineer marine equipment than prior. Hemoglobin remained stable. He felt ready for home and was subsequently discharged home. DISCHARGE MEDICATIONS: Please see below. ALLERGIES: Please see below. PHYSICAL EXAMINATION ON DISCHARGE: VITAL SIGNS: Please see below. GENERAL: Comfortable, in no apparent distress. HEENT: Head normocephalic/atraumatic, EOMI, sclera clear. NECK: Supple RESPIRATORY: Lungs clear to auscultation bilaterally, no rales, wheeze or rho nchi. CARDIOVASCULAR: Regular rate and rhythm. ABDOMEN: Soft, obese, normal bowel sounds. MUSCLE SKELETAL: Muscle strength 5/5 in all extremities. NEUROLOGICAL: CN 312 grossly intact, no focal deficits noted. PSYCHOLOGICAL: Normal mood and affect LABORATORY DATA: Please see below. IMAGING: Chest x-ray No active disease seen. Prior sternotomy with interrupted sternotomy sutures again noted PROGNOSIS: Good ACTIVITY: As tolerated DIET: Renal diet DISCHARGE PLAN: Home DISPOSITION: Home, Self-Care. DISCHARGE INSTRUCTIONS: 1. Follow-up with PCP within 1 week 2. Follow-up with her aluminum molder within 1 week 3. Follow-up with GI in 3 weeks 4. Follow with nephrology a her regular scheduled dialysis 5. You will need to take pantoprazole 40 mg twice a day for 8 weeks DISCHARGE CONDITION: Stable Total time spent on discharge planning, discharge summary, and medication reconciliation: 65 minutes Vital Signs/I&Os Vital Signs Date Time Temp Pulse Resp B/P (MAP) Pulse Ox O2 Delivery O2 Flow Rate FiO2 10/17/20 12:00 98.0 72 20 148/67 (94) 98 Room Air I&O- Last 24 Hours up to 6 AM 10/17/20 06:00 Intake Total 1540 ml Output Total 90 ml Balance 1450 ml Laboratory Data Labs 24H Laboratory Tests 2 10/16/20 20:24: Bedside Glucose (Misc Panel) 241H 10/17/20 05:09: Nucleated Red Blood Cells % (auto) 0.0, Immature Platelet Fraction 3.2, Anion Gap 9, Glomerular Filtration Rate 6.5L, Calcium Level 7.1L 10/17/20 12:39: Bedside Glucose (Misc Panel) 106 10/17/20 12:41: Nucleated Red Blood Cells % (auto) 0.0 CBC/BMP Laboratory Tests 10/17/20 05:09 10/17/20 12:41 FSBS Laboratory Tests Test 10/16/20 20:24 10/17/20 12:39 Range/Units Bedside Glucose (Misc Panel) 241 106 83-110 MG/DL Discharge Medications Scheduled Aspirin (Aspirin) 81 Mg Tab.chew, 81 MG PO DAILY, (Reported) Atorvastatin Calcium (Atorvastatin Calcium) 40 Mg Tablet, 40 MG PO QHS, (Reported) Clopidogrel Bisulfate (Clopidogrel) 75 Mg Tablet, 75 MG PO DAILY Docusate Sodium (Dok) 100 Mg Capsule, 100 MG PO BID Ergocalciferol (Vitamin D2) (Vitamin D2) 50,000 Units Cap, 50,000 UNITS PO 1XWK, (Reported) SUNDAY Ezetimibe (Ezetimibe) 10 Mg Tablet, 10 MG PO DAILY, (Reported) Ferrous Sulfate (Ferrous Sulfate) 325 Mg Tablet, 325 MG PO BID, (Reported) Gabapentin (Gabapentin) 100 Mg Capsule, 100 MG PO BID, (Reported) Glipizide (Glipizide ER) 5 Mg Tab.er.24, 5 MG PO BID, (Reported) 0800, 1700 Midodrine HCl (Midodrine HCl) 10 Mg Tablet, 10 MG PO TID, (Reported) 0800, 1200, 1600 Pantoprazole Sodium (Pantoprazole Sodium) 40 Mg Tablet.dr, 40 MG PO BID Propranolol HCl (Propranolol HCl) 10 Mg Tab, 5 MG PO BID, (Reported) Sevelamer Carbonate (Sevelamer Carbonate) 800 Mg Tablet, 800 MG PO WM, (Reported) Vit B Comp No.3/Folic/C/Biotin (Nephro-Liza Rx Tablet) 1 Each Tablet, 1 TAB PO DAILY, (Reported) Scheduled PRN Sildenafil Citrate (Viagra) 50 Mg Tablet, 50 MG PO ASDIRECTED PRN for ERECTILE DYSFUNCTION, (Reported) Allergies Coded Allergies: No Known Allergies (Unverified , 06/14/20) JAMIE WALLACE DO Oct 17, 2020 19:03
[2020-10-17] MEDS ORDERED: HumaLOG INSULIN (NovoLOG) PER UNIT SC SCH (21:00)
--- NOTE | 2020-10-18 12:17 | ECHO ---
DATE OF PROCEDURE: 10/15/2020 Age: 70 Gender: Male REFERRING PHYSICIAN: Sacha Rojo DO. PATIENT LOCATION: Room 3220. REASON FOR STUDY: Valvular heart disease, anemia, congestive heart failure (CHF). 2D MEASUREMENTS: IVS 1.3 cm LV 4.8 cm LVPW 1.2 cm LA 4.1 cm Aorta 3.3 cm DOPPLER MEASUREMENT Peak velocity across the aortic valve 3.7 m/s Peak velocity across the LVOT 0.89 m/s Peak gradient across the aortic valve 54 mmHg Mean gradient across the aortic valve 30 mmHg Mitral E 0.82 Mitral A 1.2 with a ratio of greater than 0.67 2D COMMENTS: 1. Normal left ventricular size with mildly increased left ventricular wall thickness and a normal global left ventricular systolic function. The estimated left ventricular systolic ejection fraction is 60% to 65%. 2. Mildly enlarged left atrium. Normal right atrium and right ventricle. 3. The atrial septum appeared to be normal without evidence of defect or shunt. 4. Normal aortic root. 5. No pericardial effusion seen. 6. Moderately calcified aortic valve with decrease in leaflet excursion. Mildly calcified mitral annulus with normal anterior mitral valve leaflet motion. Normal tricuspid valve and pulmonic valve. The proximal pulmonary artery branches were not well visualized. 7. The inferior vena cava was not well visualized. Doppler detects mild aortic regurgitation and trace mitral regurgitation. Abnormal relaxation pattern was noted across the mitral valve leaflets, as well as the mitral valve annulus consistent with features of grade 1 left ventricular diastolic dysfunction. IMPRESSION: 1. Normal global left ventricular systolic function with mild concentric left ventricular hypertrophy. There are some features of grade 1 left ventricular diastolic dysfunction manifested by abnormal relaxation. 2. Aortic valve sclerosis with mild aortic regurgitation and moderate aortic stenosis. 3. Mitral annular calcification with a mildly enlarged left atrium and trace mitral regurgitation. MTDD
== END 2020-10-17 15:34 | disposition home or self-care (01) | DRG 393 ==
LOC: M ED 18:30 → M ED INP 22:36 → M PCU 10-15 01:00
PROVIDERS: ADMIT Internal Medicine; ATTEND Internal Medicine
PROC: 0W3P8ZZ Control Bleeding in Gastrointestinal Tract, Via Natural or Artificial Opening Endoscopic (ICD-10-PCS; 2020-10-15)
PROC: 5A1D70Z Performance of Urinary Filtration, Intermittent, Less than 6 Hours Per Day (ICD-10-PCS; principal; 2020-10-15 15:00)
DX: K31.7 Polyp of stomach and duodenum (principal); N18.6 End stage renal disease; K76.6 Portal hypertension; I50.22 Chronic systolic (congestive) heart failure; D61.818 Other pancytopenia; I85.10 Secondary esophageal varices without bleeding; K92.1 Melena; D62 Acute posthemorrhagic anemia; K74.60 Unspecified cirrhosis of liver; I25.10 Atherosclerotic heart disease of native coronary artery without angina pectoris; I35.0 Nonrheumatic aortic (valve) stenosis; E11.22 Type 2 diabetes mellitus with diabetic chronic kidney disease; I69.344 Monoplegia of lower limb following cerebral infarction affecting left non-dominant side; I86.4 Gastric varices; E78.5 Hyperlipidemia, unspecified; K31.89 Other diseases of stomach and duodenum; E66.9 Obesity, unspecified; I25.2 Old myocardial infarction; G47.33 Obstructive sleep apnea (adult) (pediatric); E87.6 Hypokalemia; Z99.2 Dependence on renal dialysis; Z89.421 Acquired absence of other right toe(s); Z95.5 Presence of coronary angioplasty implant and graft; Z20.822 Contact with and (suspected) exposure to COVID-19; Z79.82 Long term (current) use of aspirin; Z79.899 Other long term (current) drug therapy; Z68.38 Body mass index [BMI] 38.0-38.9, adult; Z86.010 Personal history of colon polyps; Z86.14 Personal history of Methicillin resistant Staphylococcus aureus infection; Z98.42 Cataract extraction status, left eye

== ENCOUNTER → 2020-10-26 | Outpatient (CLI) | payer MEDICARE, BC, OTHER ==
[~2020-10-26] MED LIST changes: +CLOP75TA2; +CLOP75TA2 PO; +FERR1TAB8 PO; +ISOVUE-300 61% 50ML VIAL As Ordered ONE; +LIDOCAINE 1% MDV 20ML VIAL As Ordered ONE; +MIDAZOLAM INJ 2MG/2ML VIAL (J2250 PER 1MG) As Ordered ONE; +MIDO10TA; +MIDO10TA PO; +fentaNYL 100 MCG/2 ML INJECTION (J3010) As Ordered ONE
--- NOTE | 2020-10-26 17:07 | ROOPDOC ---
[facility] Report Of Operation Report of Operation DATE OF PROCEDURE: 10/26/20 PREPROCEDURE DIAGNOSES: End-stage renal disease with increased venous pressure some poor circulation during dialysis with right Bakari fistula. POSTPROCEDURE DIAGNOSES: Same. PROCEDURE: 1. Ultrasound-guided access right cephalic vein 2. Right upper extremity fistulogram and central venogram 3. Angioplasty right cephalic vein and basilic vein with 7 x 200 [place] balloon 4. Completion venogram SURGEON: Herlinda Dooley MD ANESTHESIA: Local anesthesia 2 mL lidocaine. Moderate intravenous conscious sedation with supervised by Dr. Dooley. The patient was independently monitored by registered nurse assigned to the Department of radiology using aut omated blood pressure, EKG, and pulse oximetry. The detailed sedation record is permanently start in the hospital information system. The following is a brief sedation record: Start time 15:57, stop time 16:40, Versed 0.5 mg IV, fentanyl 25 g IV. CONTRAST: 36 mL Isovue-300 INDICATION FOR PROCEDURE: This is a very pleasant 70-year-old gentleman with end-stage renal disease currently dialyzing with a right Bakari fistula was had port venous circulation and outflows with increased venous pressures. Risk kal efits alternatives to a fistulogram potential intervention respond to the patient. He is agreeable to proceed. Informed consent was obtained. INTERPRETATION: 1. The AV anastomosis is widely patent on ultrasound, please see images. 2. The cephalic vein is widely patent over the forearm and was marked on the skin with ultrasound. 3. Fistulogram reveals widely patent cephalic vein that bifurcates into the basilic and cephalic vein at the antecubital crease, with diminutive flow through the cephalic system over the bicep and shoulder, and I estimate the vein to be proximally 5 mm diameter, with good flow into the central veins. The bas ilic vein had some stenosis near the antecubital crease, and I estimated to be 4-5 mm diameter, but then it gets larger as adjoins into the axillary vein system with a widely patent axillary vein and one focal area of 30% stenosis. There is good flow from the axillary vein into the subclavian vein. The central veins are widely patent. 4. After angioplasty of the cephalic vein from the antecubital crease to the central system, there was spasm within the vein. After some rest time well angioplasty the basilic vein, we repeated the angioplasty in the cephalic vein which provided a marked improvement in flow and release of the spasm with excellent outflow through to the central system and improvement of thrill in the fistula. No extravasation with either side of angioplasty was noted. 5. After angioplasty of the basilic vein, there is widely patent foot of the central system. There is a large valve in the axillary vein that causes a delay of contrast, but eventually this also clears. Excellent flow into the central system. No extravasation after angioplasty. REPORT OF OPERATION: Patient was brought to the angiographic suite in stable con dition. His right upper extremity was prepped and draped in sterile fashion. A timeout was performed. Ultrasound was used to map the vein on the skin which was marked and covered with a Tegaderm. Ultrasound was used to examine the AV anastomosis which was noted to be widely patent, please see images. Ultrasound was then used to gain access to the cephalic vein after anesthetizing with additional local anesthesia. A wire was passed through this access and a 4 [place] sheath was placed and flushed with saline. Sedation was administered without complication. Glidewire was advanced into the central system through the cephalic vein and fistulogram and central venogram were performed, please interpretation both. We then angioplasty along the length of the cephalic vein with a 7 x 100 [place] balloon for three-minute inflations. Following this there was some spasm in the vein, so we left it to rest and selected the basilic vein. We angioplasty the length of the basilic vein and through the axillary vein with a 7 x 200 [place] balloon for three-minute inflations. Following this there is a marked improvement in flow through the basilic vein. We then re-selected the cephalic vein and a second angioplasty for three-minute inflations along the length the vessel was performed. Following this, the spasm was released and there is a marked improvement in dilation of the vein with excellent outflow. There was a good thrill in the fistula. A [id number] Prolene suture was placed at the sheath and the sheath was removed. The suture was secured in good hemostasis was noted. Sterile dressings were applied and the patient was taken to recovery in stable condition. He tolerated the procedure and the sedation well. ESTIMATED BLOOD LOSS: Approximately 5 mL. COMPLICATIONS: None PLAN: Okay to use fistula for dialysis. Okay to resume home diet and medications. We appreciate the opportunity to participate in the care of this patient. HERLINDA DOOLEY MD Oct 26, 2020 17:07
[2020-10-26 17:35] VITALS: BP 162/86
== END ==
LOC: M IRPRO 14:43
PROVIDERS: ATTEND Surgery Vascular Surgery
DX: T82.590A Other mechanical complication of surgically created arteriovenous fistula, initial encounter (principal); N18.6 End stage renal disease; E11.22 Type 2 diabetes mellitus with diabetic chronic kidney disease; E78.5 Hyperlipidemia, unspecified; I12.0 Hypertensive chronic kidney disease with stage 5 chronic kidney disease or end stage renal disease; X58.XXXA Exposure to other specified factors, initial encounter; Z79.82 Long term (current) use of aspirin; Z79.899 Other long term (current) drug therapy; Z95.1 Presence of aortocoronary bypass graft; Z99.2 Dependence on renal dialysis
CPT/HCPCS: 36902; 99152; 99153; C1725; C1769; C1894; J1644; J2250; J3010; Q9967